=== PATIENT | female | born 1955 | race Caucasian/White ===

== ENCOUNTER → 2017-07-01 15:43 | Outpatient (CLI) | payer BC, MEDICARE, SELFPAY ==
--- NOTE | 2017-07-01 15:46 | CT_ITS ---
STUDY: CT LEFT FOOT REASON FOR EXAM: Female, 61 years old. Nondisplaced fracture, MS, vitamin D deficiency RADIATION DOSAGE (If Supplied By Facility): CTDI vol = (6.53) mGy, DLP = (150.51 mGycm) TECHNIQUE: The patient was scanned in a multi detector CT scanner. High resolution transaxial imaging was performed. Sagittal and coronal images were reconstructed. Individualized dose optimization techniques were used for this CT. COMPARISON: X-ray 06/01/2017 FINDINGS: There is nondisplaced fracture at the base of the second metatarsal. There is sclerosis at the fracture margins (image 22, 21, 20/39 sagittal recon, 46/87 axial). The tarsometatarsal joints are well aligned. There is no osseous destruction. CT/Extremity Lower without Contra IMPRESSION: Nonunited fracture, base second metatarsal Electronically Signed: Gage Ivy MD at 12:01 EST Tel , Service support ,
== END ==
PROVIDERS: Family Provider Family Medicine; PCP Family Medicine; Visit Provider Physician Assistant
DX: S92.345K Nondisplaced fracture of fourth metatarsal bone, left foot, subsequent encounter for fracture with nonunion (principal)
CPT/HCPCS: 73700

== ENCOUNTER → 2017-07-18 12:31 | Outpatient (CLI) | payer BC, MEDICARE, SELFPAY ==
[2017-07-18 13:58] LABS: Absolute Neutrophil Count 3.7 X10^3/uL (2.0-7.7); Basophil# 0.02 X10^3/uL; Basophil% 0.4 % (0-1); Eosinophil# 0.08 X10^3/uL; Eosinophils% 1.6 % (0-5); Hematocrit 41.6 % (37-47); Hemoglobin 13.4 g/dl (12.0-15.0); Lymphocyte % 16.4 % (19-41); Mean Corp Hgb Conc 32.2 g/gl (32-36); Mean Corpuscular Volume 93.1 fL (81-99); Mean Platelet Vol. 11.4 fl (6.2-12.0); Monocyte# 0.28 X10^3/uL; Monocyte% 5.7 % (0-10); Neutrophil # 3.68 X10^3/uL (2.7-7.7); Neutrophil % 75.7 % (47-70); Platelet Count 155 K/mm3 (150-450); RBC Distribution Width CV 13.6 % (11.6-14.6); RBC Distribution Width SD 45.6 fl (35.1-43.9); Red Blood Count 4.47 M/mm3 (4.2-5.4); White Blood Count 4.9 K/mm3 (4.4-11.0)
[2017-07-18 14:03] LABS: POSITIVE COUNT NO; POSITIVE DIFFERENTIAL NO; POSITIVE MORPHOLOGY NO
== END ==
LOC: LAB.FUTURE 12:34
PROVIDERS: Family Provider Family Medicine; PCP Family Medicine; Visit Provider Internal Medicine
DX: G35 Multiple sclerosis (principal); Z79.899 Other long term (current) drug therapy
CPT/HCPCS: 36415; 85025

== ENCOUNTER → 2017-07-26 10:19 | Outpatient (CLI) | payer BC, MEDICARE, SELFPAY ==
[2017-07-26 12:21] LABS: Cholesterol 182 mg/dL (200); High Density Lipoprotein 68 mg/dL; Triglycerides 96 mg/dL; Very Low Density Lipoprotein 19 mg/dL (5-40)
[2017-07-27 09:44] LABS: Vitamin B12 266 pg/mL (211-911)
== END ==
LOC: BFHLAB 10:20
PROVIDERS: Family Provider Family Medicine; PCP Family Medicine; Visit Provider Family Medicine
DX: Z00.01 Encounter for general adult medical examination with abnormal findings (principal); I10 Essential (primary) hypertension; E55.9 Vitamin D deficiency, unspecified; E53.8 Deficiency of other specified B group vitamins
CPT/HCPCS: 36415; 80061; 82306; 82607

== ENCOUNTER → 2017-08-01 15:11 | Outpatient (CLI) | payer BC, MEDICARE, SELFPAY ==
--- NOTE | 2017-08-01 15:13 | HPBI_ITS ---
MAMMOGRAPHY - BILATERAL SCREENING REASON FOR EXAM: Female, 61 years old. Routine annual screening examination. PERTINENT HISTORY: Mother with breast cancer. TECHNIQUE: Digital bilateral breast ortiz (3D mammographic acquisition) in the CC and MLO projections. 2-D mediolateral oblique (MLO) and craniocaudad (CC) views of both breasts were obtained. CAD: Full Field Digital Mammography with Computer Added Detection was performed. COMPARISON: Comparison is made with prior study dated July 17, 2015 and February 22, 2013. FINDINGS: Breast Composition: The breasts are heterogeneously dense, which may obscure small masses. There are no dominant masses or suspicious calcifications. No other significant abnormalities are identified. There has been no significant change since the prior study. HPBI/SCREENING MAMM (CAD), BILAT IMPRESSION: Stable bilateral screening mammogram. Yearly follow-up mammogram recommended. (A) ASSESSMENT CATEGORY: BIRADS Category 1: Negative. A letter regarding these results will be sent to the patient by the facility within 30 days. Approximately 10% of breast cancers are not detected by mammography. A normal mammogram should not delay biopsy of a clinically suspicious abnormality. [id number] Electronically Signed: Feroz Nowak MD at 16:02 EDT Tel [phone], Service support ,
== END ==
PROVIDERS: Family Provider Family Medicine; PCP Family Medicine; Visit Provider Family Medicine
DX: Z12.31 Encounter for screening mammogram for malignant neoplasm of breast (principal)
CPT/HCPCS: 77063; 77067

== ENCOUNTER → 2017-08-02 15:53 | Outpatient (CLI) | payer BC, MEDICARE, SELFPAY ==
--- NOTE | 2017-08-02 15:54 | HPBD_ITS ---
STUDY: DUAL ENERGY X-RAY ABSORPTIOMETRY / DXA REASON FOR EXAM: Female, 61 years old. The patient is postmenopausal. Loss of height. Chronic steroid use. TECHNIQUE: Bone Mineral Density (BMD) measurements of lumbar spine and bilateral hips were obtained. COMPARISON: Comparison is made with prior study dated August 11, 2005. FINDINGS: Lumbar Spine (L1-L4): g/cm2 (1.195) / T-score (0.1) / Z-score (1.4) Findings are suggestive of normal bone density with a low fracture risk. Left Femur Total: g/cm2 (0.799) / T-score (-1.7) / Z-score (-0.7) Left Femoral Neck: g/cm2 (0.804) / T-score (-1.7) / Z-score (-0.4) Right Femur Total: g/cm2 (0.746) / T-score (-2.1) / Z-score (-1.1) Right Femoral Neck: g/cm2 (0.794) / T-score (-1.8) / Z-score (-0.5) The T-Scores on the most recent prior examination were: Lumbar Spine (L1-L4): There has been improvement of bone density since the previous examination. Left Femur Total: which represents a worsening of 7.1%. Right Femur Total: which represents a worsening of 8.4%. HPBD/Dexa Bone Density Study (HP) IMPRESSION: The patient is considered osteopenic as outlined below according to World Marshall Organization (WHO) criteria with a moderate fracture risk. There has been worsening of bone density since the previous examination. Reference Information: The T-score is the number of standard deviations above or below the standard which is normal for young adults at their peak bone mineral density. The World Health Organization (WHO) interprets the T-scores as follows: Above -1 Normal bone density Between -1 and -2.5 Osteopenia Equal to / or below -2.5 Osteoporosis As a practical clinical guideline, osteopenia may be graded as follows: Mild -1 through -1.5 Moderate -1.6 through -2.0 Severe -2.1 through -2.4 The Z-score is the number of standard deviations above or below age-matched controls. A Z-score of less than -1.5 would be considered abnormal. References: 1. NIH Osteoporosis and Related Bone Diseases http://www.osteo.org 2. International Society for Clinical Densitometry http://www.iscd.org 3. National Osteoporosis Foundation http://www.nof.org Electronically Signed: Feroz Nowak MD at 8:12 EDT Tel [phone], Service support ,
== END ==
PROVIDERS: Family Provider Family Medicine; PCP Family Medicine; Visit Provider Family Medicine
DX: M81.0 Age-related osteoporosis without current pathological fracture (principal)
CPT/HCPCS: 77080

== ENCOUNTER → 2017-10-04 11:25 | Outpatient (CLI) | payer BC, MEDICARE, SELFPAY ==
[2017-10-04 14:04] LABS: Absolute Lymphocyte Count 0.19 X10^3/ul (0.83-4.51); Absolute Neutrophil Count 3.6 X10^3/uL (2.0-7.7); Basophil# 0.02 X10^3/uL; Basophil% 0.4 % (0-1); Eosinophil# 0.12 X10^3/uL; Eosinophils% 2.7 % (0-5); Hematocrit 40.8 % (37-47); Hemoglobin 13.6 g/dl (12.0-15.0); Lymphocyte # 0.19 X10^3/ul (4.0); Lymphocyte % 4.2 % (19-41); Mean Corp Hgb Conc 33.3 g/gl (32-36); Mean Corpuscular Hgb 30.6 pg (27.0-32.0); Mean Corpuscular Volume 91.9 fL (81-99); Mean Platelet Vol. 11.4 fl (6.2-12.0); Monocyte# 0.56 X10^3/uL; Monocyte% 12.5 % (0-10); Neutrophil # 3.58 X10^3/uL (2.7-7.7); Platelet Count 180 K/mm3 (150-450); RBC Distribution Width CV 13.4 % (11.6-14.6); RBC Distribution Width SD 44.3 fl (35.1-43.9); Red Blood Count 4.44 M/mm3 (4.2-5.4); White Blood Count 4.5 K/mm3 (4.4-11.0)
[2017-10-04 14:05] LABS: Differential Indicated SCAN CRITERIA MET; POSITIVE COUNT NO; POSITIVE DIFFERENTIAL YES; POSITIVE MORPHOLOGY NO
[2017-10-04 14:11] LABS: AST(SGOT) 20 U/L (15-37); Alanine Aminotransfer ALT/SGPT 29 U/L (13-56); Albumin, Serum 3.7 g/dL (3.2-5.0); Alkaline Phosphatase 127 U/L (45-117); Anion Gap 6 (5-15); BUN 14 mg/dL (7-18); BUN/Creat Ratio 14.6 RATIO (10-20); Calcium,Total 8.7 mg/dL (8.5-10.1); Chloride 108 mmol/L (98-107); Creatinine, Serum 0.96 mg/dL (0.55-1.02); EST Glomerular Filtration Rate 63 mL/min (>60); Est Glom Filt Rate - Afr Amer 76 mL/min (>60); Globulin 3.8 g/dL (2.2-4.2); Glucose 89 mg/dL (74-106); Potassium 4.2 mmol/L (3.5-5.1); Protein, Total 7.5 g/dL (6.4-8.2); Sodium Level 139 mmol/L (136-145)
== END ==
PROVIDERS: Family Provider Family Medicine; PCP Family Medicine; Visit Provider Internal Medicine
DX: G35 Multiple sclerosis (principal); Z79.899 Other long term (current) drug therapy
CPT/HCPCS: 36415; 80053; 85025

== ENCOUNTER → 2017-10-04 15:38 | Outpatient (CLI) | payer BC, MEDICARE, SELFPAY | PROVIDERS: Family Provider Family Medicine; PCP Family Medicine; Visit Provider Family Medicine | DX: E86.0 Dehydration (principal); R30.0 Dysuria | CPT/HCPCS: 87086; 87088 ==

== ENCOUNTER → 2017-11-23 16:05 | Outpatient (CLI) | payer BC, MEDICARE, SELFPAY ==
[2017-11-23 17:47] LABS: AST(SGOT) 26 U/L (15-37); Alanine Aminotransfer ALT/SGPT 36 U/L (13-56); Albumin, Serum 3.8 g/dL (3.2-5.0); Alkaline Phosphatase 131 U/L (45-117); Anion Gap 11 (5-15); BUN 15 mg/dL (7-18); BUN/Creat Ratio 16.3 RATIO (10-20); Calcium,Total 8.8 mg/dL (8.5-10.1); Chloride 106 mmol/L (98-107); Creatinine, Serum 0.92 mg/dL (0.55-1.02); EST Glomerular Filtration Rate 66 mL/min (>60); Est Glom Filt Rate - Afr Amer 80 mL/min (>60); Glucose 105 mg/dL (74-106); Potassium 3.8 mmol/L (3.5-5.1); Protein, Total 7.8 g/dL (6.4-8.2); Sodium Level 144 mmol/L (136-145)
[2017-11-24 08:39] LABS: Absolute Lymphocyte Count 0.68 X10^3/ul (0.83-4.51); Absolute Neutrophil Count 3.5 X10^3/uL (2.0-7.7); Basophil# 0.02 X10^3/uL; Basophil% 0.4 % (0-1); Eosinophil# 0.09 X10^3/uL; Hematocrit 40.9 % (37-47); Hemoglobin 13.4 g/dl (12.0-15.0); Lymphocyte # 0.68 X10^3/ul (4.0); Mean Corp Hgb Conc 32.8 g/gl (32-36); Mean Corpuscular Hgb 30.5 pg (27.0-32.0); Mean Platelet Vol. 11.8 fl (6.2-12.0); Monocyte# 0.24 X10^3/uL; Monocyte% 5.3 % (0-10); Neutrophil # 3.48 X10^3/uL (2.7-7.7); Neutrophil % 77.1 % (47-70); POSITIVE COUNT NO; POSITIVE DIFFERENTIAL NO; POSITIVE MORPHOLOGY NO; Platelet Count 178 K/mm3 (150-450); RBC Distribution Width CV 13.8 % (11.6-14.6); RBC Distribution Width SD 47.2 fl (35.1-43.9); White Blood Count 4.5 K/mm3 (4.4-11.0)
== END ==
PROVIDERS: Family Provider Family Medicine; PCP Family Medicine; Visit Provider Internal Medicine
DX: Z79.899 Other long term (current) drug therapy (principal)
CPT/HCPCS: 36415; 80053; 85025

== ENCOUNTER → 2017-12-06 13:52 | Outpatient (CLI) | payer BC, MEDICARE, SELFPAY ==
--- NOTE | 2017-12-06 13:56 | RAD_ITS ---
STUDY: X-RAY - CERVICAL SPINE REASON FOR EXAM: Female, 62 years old. Pain TECHNIQUE: 7 view(s) of the cervical spine were obtained. COMPARISON: None FINDINGS: There is no evidence of fracture or dislocation in the cervical spine. The dens is intact. The vertebral body heights and disc spaces are well-maintained. There are no significant degenerative changes. The prevertebral soft tissues are unremarkable. There is no radiodense foreign body. RAD/Cerv Spine 4 or 5 Views IMPRESSION: No fracture or dislocation in the cervical spine. Electronically Signed: Gage Akhtar, at 19:43 EDT Tel , Service support ,
--- NOTE | 2017-12-06 13:56 | RAD_ITS ---
STUDY: X-RAY - RIGHT CLAVICLE REASON FOR EXAM: Female, 62 years old. Pain and swelling TECHNIQUE: 2 view(s) of the clavicle. COMPARISON: None. FINDINGS: There is no evidence of fracture or dislocation. There are no significant degenerative changes. There are no radiodense foreign bodies. RAD/Clavicle IMPRESSION: Negative radiographs of the right clavicle. Electronically Signed: Gage Akhtar, at 19:40 EDT Tel , Service support ,
--- NOTE | 2017-12-06 14:00 | RAD_ITS ---
STUDY: X-RAY - RIGHT SHOULDER REASON FOR EXAM: Female, 62 years old. Pain TECHNIQUE: 4 view(s) of the shoulder. COMPARISON: None. FINDINGS: There is no evidence of fracture or dislocation. There are no significant degenerative changes. There are no radiodense foreign bodies. RAD/Shoulder min 2 Views IMPRESSION: No fracture or dislocation. Electronically Signed: Gage Akhtar, at 19:42 EDT Tel , Service support ,
== END ==
PROVIDERS: Family Provider Family Medicine; PCP Family Medicine; Visit Provider Family Medicine
DX: M25.511 Pain in right shoulder (principal); M89.8X1 Other specified disorders of bone, shoulder; M43.02 Spondylolysis, cervical region
CPT/HCPCS: 72050; 73000; 73030

== ENCOUNTER → 2018-02-14 11:27 | Outpatient (CLI) | payer BC, MEDICARE, SELFPAY ==
[2018-02-14 14:08] LABS: Absolute Lymphocyte Count 0.33 X10^3/ul (0.83-4.51); Basophil# 0.04 X10^3/uL; Basophil% 0.8 % (0-1); Differential Indicated SCAN CRITERIA MET; Eosinophil# 0.13 X10^3/uL; Eosinophils% 2.6 % (0-5); Hematocrit 38.8 % (37-47); Hemoglobin 12.5 g/dl (12.0-15.0); Lymphocyte # 0.33 X10^3/ul (4.0); Lymphocyte % 6.5 % (19-41); Mean Corp Hgb Conc 32.2 g/gl (32-36); Mean Corpuscular Hgb 30.2 pg (27.0-32.0); Mean Corpuscular Volume 93.7 fL (81-99); Mean Platelet Vol. 11.1 fl (6.2-12.0); Monocyte% 11.8 % (0-10); Neutrophil # 3.96 X10^3/uL (2.7-7.7); Neutrophil % 78.1 % (47-70); POSITIVE COUNT NO; POSITIVE DIFFERENTIAL YES; POSITIVE MORPHOLOGY NO; Platelet Count 157 K/mm3 (150-450); RBC Distribution Width CV 13.7 % (11.6-14.6); RBC Distribution Width SD 46.4 fl (35.1-43.9); Red Blood Count 4.14 M/mm3 (4.2-5.4); White Blood Count 5.1 K/mm3 (4.4-11.0)
== END ==
PROVIDERS: Family Provider Family Medicine; PCP Family Medicine; Referring Provider Internal Medicine; Visit Provider Internal Medicine
DX: G35 Multiple sclerosis (principal)
CPT/HCPCS: 36415; 85025

== ENCOUNTER → 2018-03-29 16:23 | Outpatient (CLI) | payer BC, MEDICARE, SELFPAY ==
[2018-03-29 18:11] LABS: ALB/GLOB Ratio 0.9 RATIO (0.9-2.4); AST(SGOT) 23 U/L (15-37); Alanine Aminotransfer ALT/SGPT 34 U/L (13-56); Albumin, Serum 3.5 g/dL (3.2-5.0); Alkaline Phosphatase 138 U/L (45-117); Anion Gap 9 (5-15); BUN 17 mg/dL (7-18); BUN/Creat Ratio 15.5 RATIO (10-20); Calcium,Total 8.3 mg/dL (8.5-10.1); Chloride 109 mmol/L (98-107); EST Glomerular Filtration Rate 54 mL/min (>60); Est Glom Filt Rate - Afr Amer 65 mL/min (>60); Globulin 3.8 g/dL (2.2-4.2); Glucose 83 mg/dL (74-106); Potassium 3.8 mmol/L (3.5-5.1); Protein, Total 7.3 g/dL (6.4-8.2); Sodium Level 145 mmol/L (136-145); Thyroid Stim Hormone (TSH) 1.74 uIU/mL (0.358-3.74)
[2018-03-29 18:35] LABS: Absolute Lymphocyte Count 0.56 X10^3/ul (0.83-4.51); Absolute Neutrophil Count 4.5 X10^3/uL (2.0-7.7); Basophil# 0.03 X10^3/uL; Basophil% 0.5 % (0-1); Eosinophil# 0.16 X10^3/uL; Eosinophils% 2.7 % (0-5); Hematocrit 39.7 % (37-47); Hemoglobin 12.7 g/dl (12.0-15.0); Lymphocyte # 0.56 X10^3/ul (4.0); Lymphocyte % 9.6 % (19-41); Mean Corpuscular Hgb 30.9 pg (27.0-32.0); Mean Corpuscular Volume 96.6 fL (81-99); Mean Platelet Vol. 11.2 fl (6.2-12.0); Monocyte# 0.59 X10^3/uL; Monocyte% 10.1 % (0-10); Neutrophil # 4.48 X10^3/uL (2.7-7.7); Neutrophil % 76.9 % (47-70); Platelet Count 159 K/mm3 (150-450); RBC Distribution Width CV 13.7 % (11.6-14.6); RBC Distribution Width SD 48.3 fl (35.1-43.9); Red Blood Count 4.11 M/mm3 (4.2-5.4); White Blood Count 5.8 K/mm3 (4.4-11.0)
[2018-03-29 18:36] LABS: Differential Indicated SCAN CRITERIA MET; POSITIVE COUNT NO; POSITIVE DIFFERENTIAL YES; POSITIVE MORPHOLOGY NO
== END ==
PROVIDERS: Family Provider Family Medicine; PCP Family Medicine; Referring Provider Internal Medicine; Visit Provider Internal Medicine
DX: Z79.899 Other long term (current) drug therapy (principal)
CPT/HCPCS: 36415; 80053; 84443; 85025

== ENCOUNTER → 2018-04-11 12:28 | Outpatient (CLI) | payer BC, MEDICARE, SELFPAY ==
--- NOTE | 2018-04-11 12:31 | MRI_ITS ---
STUDY: MRI BRAIN WITH AND WITHOUT CONTRAST REASON FOR EXAM: Female, 62 years old. Multiple sclerosis with new numbness and tingling TECHNIQUE: Standardized multiplanar fat and water weighted pulse sequences were obtained. 10 ml of Gadavist contrast material was administered intravenously for the contrast portion of the examination. COMPARISON: CT of the brain on April 05, 2011. FINDINGS: Normal size of the ventricles and extra-axial spaces for the patient's age. There are multiple small white matter lesions within the centrum semiovale and luna radiata without mass effect or restricted diffusion which may be consistent with clinical history of multiple sclerosis however small vessel ischemic changes in patient of this age may create similar appearance Normal bilateral basal ganglia. Normal thalami. There is no extra-axial fluid accumulation. Normal flow voids within the major intracranial circulation suggesting patency by spin echo criteria. Normal venous enhancement. There is no enhancing intra-axial or extra-axial abnormality. Normal sella turcica, pituitary gland, infundibular stalk, optic chiasm and hypothalamus. Normal tectal plate and pineal gland. Normal midbrain, kate and medulla. Normal cerebellum. Normal basal cisterns. Normal bilateral temporal bones. Normal bilateral internal auditory canals. No demonstrated orbital abnormality, within the constraints of a routine brain study. Large mucous retention cyst within the maxillary sinuses bilaterally and minor mucosal thickening within the ethmoid air cells. Normal calvarium and skull base. Normal visualized soft tissue structures. Normal visualized upper cervical spine. MRI/Brain W/WO Contrast IMPRESSION: Multiple small nonspecific bilateral punctate white matter lesions within the centrum semiovale luna radiata which in a patient of this age are most likely due to small vessel ischemic changes but also may be consistent with clinical history of multiple sclerosis. No evidence for acute infarct at this time. There is no enhancing lesion to suggest acute demyelinating plaque.. Electronically Signed: Gildardo Luna MD at 19:28 EST , Service support ,
--- NOTE | 2018-04-11 12:31 | MRI_ITS ---
STUDY: MRI CERVICAL SPINE WITH AND WITHOUT CONTRAST REASON FOR EXAM: Female, 62 years old. Multiple sclerosis with new numbness and tingling TECHNIQUE: Standardized fat and water weighted pulse sequences were obtained in the sagittal and axial following I.V. administration of 10 ml of Gadavist contrast material. COMPARISON: March 13, 2015 FINDINGS: Normal foramen magnum and brainstem-cervical cord junction. Normal craniovertebral junction. Normal anterior atlantoaxial articulation. Normal odontoid process. Normal cervical lordosis. Normal vertebral bodies and posterior osseous elements. C2-3: Normal endplates. Normal disc height, signal and morphology. Normal central canal and intervertebral neural foramina. C3-4: Normal endplates. Normal disc height, signal and mild bulging of the disc.. Normal central canal and intervertebral neural foramina. C4-5: Normal endplates. Normal disc height, signal and morphology. Normal central canal and intervertebral neural foramina. C5-6: Normal endplates. Normal disc height, signal and morphology. Normal central canal and intervertebral neural foramina. C6-7: Normal endplates. Normal disc height, signal and morphology. Normal central canal and intervertebral neural foramina. C7-T1: Normal endplates. Normal disc height, signal and morphology. Normal central canal and intervertebral neural foramina. Normal cervical cord. Normal visualized soft tissue structures. MRI/Spine Cervical W/WO Contrast IMPRESSION: Mild bulging of the disc at C3-4 without evidence for spinal stenosis or cord compression. No focal lesions within the spinal cord or abnormal enhancement following contrast demonstration Electronically Signed: Gildardo Luna MD at 23:16 EST , Service support ,
--- OUTSIDE RECORDS SUMMARY | 2018-05-24 04:52 | XMS RPT_ITS ---
:1955 Author Organization OHIP Support Name Relationship Address Phone D Unavailable Unavailable Unavailable ROGERS, YOANDY Unavailable [address] + [place] [address] D Unavailable Unavailable Unavailable ROGERS, YOANDY Unavailable [address] + [place] [address] D Unavailable Unavailable Unavailable ROGERS, YOANDY Unavailable [address] + [place] [address] D Unavailable Unavailable Unavailable ROGERS, YOANDY Unavailable [address] + [place] [address] D Unavailable Unavailable Unavailable ROGERS, YOANDY Unavailable [address] + [place] [address] D Unavailable Unavailable Unavailable ROGERS, YOANDY Unavailable [address] + [place] [address] D Unavailable Unavailable Unavailable ROGERS, OYANDY Unavailable [address] + [place] [address] D Unavailable Unavailable Unavailable ROGERS, YOANDY Unavailable [address] + [place] [address] D Unavailable Unavailable Unavailable ROGERS, YOANDY Unavailable [address] + [place] [address] D Unavailable Unavailable Unavailable ROGERS, YOANDY Unavailable [address] + [place] [address] D Unavailable Unavailable Unavailable ROGERS, YOANDY Unavailable [address] + [place] [address] D Unavailable Unavailable Unavailable ROGERS, YOANDY Unavailable [address] + [place] [address] Care Team Providers Name Role Phone JAN LEWIS Admitting Unavailable JAN LEWIS Attending Unavailable MYRON, DR GODINEZ Consulting Unavailable Angel Blackman Attending Unavailable Walt La Primary Care Unavailable Angel Blackman Referring Unavailable Carrabine, Gurwinder J Attending Unavailable Bessie, Walt Primary Care Unavailable Carrabine, Gurwinder J Referring Unavailable Bessie, Walt Attending Unavailable Bessie, Walt Primary Care Unavailable Bessie, Walt Attending Unavailable Bessie, Walt Referring Unavailable Bessie, Walt Primary Care Unavailable Bessie, Walt Attending Unavailable Bessie, Walt Primary Care Unavailable Carrabine, Gurwinder J Attending Unavailable Carr[place], Gurwinder J Referring Unavailable Bessie, Walt Primary Care Unavailable Bessie, Walt Attending Unavailable Bessie, Walt Primary Care Unavailable Carrabine, Gurwinder J Attending Unavailable Carrabine, Gurwinder J Referring Unavailable Bessie, Walt Primary Care Unavailable Bessie, Walt Attending Unavailable Bessie, Walt Referring Unavailable Bessie, Walt Primary Care Unavailable Carrabine, Gurwinder J Attending Unavailable Carrabine, Gurwinder J Referring Unavailable Bessie, Walt Primary Care Unavailable Carrabine, Gurwinder J Attending Unavailable Carrabine, Gurwinder J Referring Unavailable Bessie, Walt Primary Care Unavailable Carrabine, Gurwinder J Attending Unavailable Carrabine, Gurwinder J Referring Unavailable Bessie, Walt Primary Care Unavailable PROBLEMS PROBLEMS DATE TYPE CONDITION / CODE ATTENDING STATUS SOURCE 03/29/2018 Unknown Z79.899 - Other [place] [place] [facility] Gurwinder J Community (current) drug Hospital therapy / Repository Z79.899(ICD-10) 02/14/2018 Unknown G35 - Multiple Carrabine, Active [place] sclerosis / Gurwinder J Community G35(ICD-10) Hospital Repository 12/06/2017 Unknown M25.511 - Pain in [facility] La [facility] [place] right shoulder / Community M25.511(ICD-10) Hospital Repository 12/06/2017 Unknown M89.8X1 - Other [facility] La [facility] [place] specified Community disorders of bone, Hospital shoulder / Repository M89.8X1(ICD-10) 12/06/2017 Unknown 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, Community cervical region / Hospital M43.02(ICD-10) Repository 10/05/2017 Unknown R30.0 - Dysuria / Walt La Active [place] R30.0(ICD-10) Community Hospital Repository 10/05/2017 Unknown E86.0 - [facility] [place] Dehydration / Community E86.0(ICD-10) Hospital Repository 08/09/2017 Unknown Z12.31 - Encounter Walt La Active [place] for screening [facility] mammogram for Hospital malignant neoplasm Repository of breast / Z12.31(ICD-10) 07/26/2017 Unknown E55.9 - Vitamin D Walt La Active [place] deficiency, Community unspecified / Hospital E55.9(ICD-10) Repository 07/26/2017 Unknown E53.8 - Deficiency Walt La [facility] [place] of other specified Community B group vitamins / Hospital E53.8(ICD-10) Repository 07/26/2017 Unknown Z00.01 - Encounter Walt La Active [place] for general adult [facility] examination with Repository abnormal findings / Z00.01(ICD-10) 07/26/2017 Unknown I10 - Essential [facility] La [facility] [place] (primary) [facility] hypertension / Hospital I10(ICD-10) Repository PROCEDURES PROCEDURES No Procedure Records FoundRESULTS RESULTS BRAIN W/WO CONTRAST Observed: 04/11/2018 Status: F Source: [place] 12:32 PM [facility] [place] REPOSITORY [facility] Imaging Services [address] [place] [address] Brain W/WO Contrast MR#: [id number] Acct: [id number] Name: MEGGAN VILLALOBOS Rep #: [id number] : 1955 F 62 From: Gildardo Luna MD PCP: Walt La DO Status: REG CLI Study: Brain W/WO Contrast Date of Exam: 04/11/18 Exam# [id number] Ordering Dr: Gurwinder Chirinos STUDY: MRI BRAIN WITH AND WITHOUT CONTRAST REASON FOR EXAM: Female, 62 years old. Multiple sclerosis with new numbness and tingling TECHNIQUE: Standardized multiplanar fat and water weighted pulse sequences were obtained. 10 ml of Gadavist contrast material was administered intravenously for the contrast portion of the examination. COMPARISON: CT of the brain on April 05, 2011. FINDINGS: Normal size of the ventricles and extra-axial spaces for the patient's age. There are multiple small white matter lesions within the centrum semiovale and luna radiata without mass effect or restricted diffusion which may be consistent with clinical history of multiple sclerosis however small vessel ischemic changes in patient of this age may create similar appearance Normal bilateral basal ganglia. Normal thalami. There is no extra-axial fluid accumulation. Normal flow voids within the major intracranial circulation suggesting patency by spin echo criteria. Normal venous enhancement. There is no enhancing intra-axial or extra-axial abnormality. Normal sella turcica, pituitary gland, infundibular stalk, optic chiasm and hypothalamus. Normal tectal plate and pineal gland. Normal midbrain, kate and medulla. Normal cerebellum. Normal basal cisterns. Normal bilateral temporal bones. Normal bilateral internal auditory canals. No demonstrated orbital abnormality, within the constraints of a routine brain study. Large mucous retention cyst within the maxillary sinuses bilaterally and minor mucosal thickening within the ethmoid air cells. Normal calvarium and skull base. Normal visualized soft tissue structures. Normal visualized upper cervical spine. MRI/Brain W/WO Contrast IMPRESSION: Multiple small nonspecific bilateral punctate white matter lesions within the centrum semiovale luna radiata which in a patient of this age are most likely due to small vessel ischemic changes but also may be consistent with clinical history of multiple sclerosis. No evidence for acute infarct at this time. There is no enhancing lesion to suggest acute demyelinating plaque.. Electronically Signed: Gildardo Luna MD at 19:28 EST , Service support , CC: Gurwinder Chirinos; Walt La DO Landing Man: Signed SPINE CERVICAL W/WO Observed: 04/11/2018 Status: F Source: [place] CONTRAST 12:32 PM [facility] REPOSITORY [facility] Imaging Services [address] [place] [address] Spine Cervical W/WO Contrast MR#: [id number] Acct: [id number] Name: MEGGAN VILLALOBOS Rep #: [id number] : 1955 F 62 From: Gildardo Luna MD PCP: Walt La DO Status: REG CLI Study: Spine Cervical W/WO Contrast Date of Exam: 04/11/18 Exam# [id number] Ordering Dr: Gurwinder Chirinos STUDY: MRI CERVICAL SPINE WITH AND WITHOUT CONTRAST REASON FOR EXAM: Female, 62 years old. Multiple sclerosis with new numbness and tingling TECHNIQUE: Standardized fat and water weighted pulse sequences were obtained in the sagittal and axial following I.V. administration of 10 ml of Gadavist contrast material. COMPARISON: March 13, 2015 FINDINGS: Normal foramen magnum and brainstem-cervical cord junction. Normal craniovertebral junction. Normal anterior atlantoaxial articulation. Normal odontoid process. Normal cervical lordosis. Normal vertebral bodies and posterior osseous elements. C2-3: Normal endplates. Normal disc height, signal and morphology. Normal central canal and intervertebral neural foramina. C3-4: Normal endplates. Normal disc height, signal and mild bulging of the disc.. Normal central canal and intervertebral neural foramina. C4-5: Normal endplates. Normal disc height, signal and morphology. Normal central canal and intervertebral neural foramina. C5-6: Normal endplates. Normal disc height, signal and morphology. Normal central canal and intervertebral neural foramina. C6-7: Normal endplates. Normal disc height, signal and morphology. Normal central canal and intervertebral neural foramina. C7-T1: Normal endplates. Normal disc height, signal and morphology. Normal central canal and intervertebral neural foramina. Normal cervical cord. Normal visualized soft tissue structures. MRI/Spine Cervical W/WO Contrast IMPRESSION: Mild bulging of the disc at C3-4 without evidence for spinal stenosis or cord compression. No focal lesions within the spinal cord or abnormal enhancement following contrast demonstration Electronically Signed: Gildardo Luna MD at 23:16 EST , Service support , CC: Gurwinder Chirinos; Walt La DO Landing Man: Signed COMPREHENSIVE METABOLIC Collected: 03/29/2018 Status: F Source: [place] PROFIL 4:27 PM [facility] REPOSITORY TYPE CODE TESTS RESULT OUT OF RANGE REFERENCE UNITS LAB L501.0100 74-106 mg/dL Normal GLU 83 Result Comment: Please note revised GLUCOSE reference range effective 2017. LAB L501.1000 7-18 mg/dL Normal BUN 17 LAB L501.1100 0.55-1.02 mg/dL High CREAT,SERUM 1.10 Result Comment: The validity of the calculated GFR AND GFRAA in patients over 70 years has not been determined. Clinical correlation is essential. LAB L501.1110 >60 mL/min Low EST GFR 54 Result Comment: Non- GFR Calc LAB L501.1115 >60 mL/min Normal EST GFR - AA 65 Result Comment: GFR Calc LAB L501.1300 10-20 RATIO Normal BUN/CRE 15.5 LAB L501.1500 6.4-8.2 g/dL T Normal PROT 7.3 LAB L501.1800 3.2-5.0 g/dL Normal ALB 3.5 LAB L501.1950 2.2-4.2 g/dL Normal GLOB 3.8 LAB L501.2000 0.9-2.4 RATIO Normal A/G 0.9 LAB L501.2200 8.5-10.1 mg/dL Low CA 8.3 LAB L501.4100 15-37 U/L Normal AST 23 LAB L501.4305 45-117 U/L High ALK P 138 LAB L501.4405 13-56 U/L Normal ALT 34 LAB L501.4600 0.20-1.00 mg/dL T Normal BILI 0.20 LAB L501.5300 136-145 mmol/L NA Normal 145 LAB L501.5600 3.5-5.1 mmol/L K Normal 3.8 LAB L501.5900 98-107 mmol/L High CL 109 LAB L501.6100 21.0-32.0 mmol/L Normal CO2 27.0 LAB L501.6200 5-15 Normal GAP 9 Performed By: #### L500.4050, L501.9520 #### [facility] [address] [place], [place], [address] THYROID STIM HORMONE Collected: 03/29/2018 Status: F Source: [place] (TSH) 4:27 PM [facility] REPOSITORY TYPE CODE TESTS RESULT OUT OF RANGE REFERENCE UNITS LAB L501.9520 0.358-3.74 uIU/mL Normal TSH 1.74 Performed By: #### L500.4050, L501.9520 #### [facility] [address] [place], [address] CBC W/DIFF, AUTOMATED Collected: 03/29/2018 Status: F Source: [place] 4:27 PM [facility] REPOSITORY TYPE CODE TESTS RESULT OUT OF RANGE REFERENCE UNITS LAB L100.1000 4.4-11.0 K/mm3 Normal WBC 5.8 LAB L100.1200 4.2-5.4 M/mm3 Low RBC 4.11 LAB L100.1300 12.0-15.0 g/dl Normal HGB 12.7 LAB L100.1400 37-47 % Normal HCT 39.7 LAB L100.1500 81-99 fL Normal MCV 96.6 LAB L100.1600 27.0-32.0 pg Normal MCH 30.9 LAB L100.1700 32-36 g/gl Normal MCHC 32.0 LAB L100.1810 11.6-14.6 % Normal RDW CV 13.7 LAB L100.1820 35.1-43.9 fl High RDW SD 48.3 LAB L100.1900 150-450 K/mm3 Normal PLT 159 LAB L100.2000 6.2-12.0 fl Normal MPV 11.2 LAB L100.2100 47-70 % High NEUT% 76.9 LAB L100.2200 19-41 % Low LY% 9.6 LAB L100.2300 0-10 % High MONO% 10.1 LAB L100.2400 0-5 % Normal EO% 2.7 LAB L100.2500 0-1 % Normal BASO% 0.5 LAB L100.2550 0.0-0.9 % Normal IM GRAN % 0.200 Result Comment: IG% - Immature Granulocytes (promyelocytes, myelocytes and metamyelocytes) > 1% indicates that a LEFT SHIFT is Present. LAB L100.2620 2.0-7.7 X10 3/uL Normal Absolute Neut 4.5 LAB L100.2720 0.83-4.51 X10 3/ul Low Absolute Lymph 0.56 LAB L100.4500 SMEAR Normal COMMENT Result Comment: LYMPHOPENIA NOTED Performed By: #### L100.0100 #### [facility] [place], [address] CBC W/DIFF, AUTOMATED Collected: 02/14/2018 Status: F Source: [place] 11:41 AM [facility] REPOSITORY Order Comment: FAX RESULTS TO VARUN SHAH @[id number] TYPE CODE TESTS RESULT OUT OF RANGE REFERENCE UNITS LAB L100.1000 4.4-11.0 K/mm3 Normal WBC 5.1 LAB L100.1200 4.2-5.4 M/mm3 Low RBC 4.14 LAB L100.1300 12.0-15.0 g/dl Normal HGB 12.5 LAB L100.1400 37-47 % Normal HCT 38.8 LAB L100.1500 81-99 fL Normal MCV 93.7 LAB L100.1600 27.0-32.0 pg Normal MCH 30.2 LAB L100.1700 32-36 g/gl Normal MCHC 32.2 LAB L100.1810 11.6-14.6 % Normal RDW CV 13.7 LAB L100.1820 35.1-43.9 fl High RDW SD 46.4 LAB L100.1900 150-450 K/mm3 Normal PLT 157 LAB L100.2000 6.2-12.0 fl Normal MPV 11.1 LAB L100.2100 47-70 % High NEUT% 78.1 LAB L100.2200 19-41 % Low LY% 6.5 LAB L100.2300 0-10 % High MONO% 11.8 LAB L100.2400 0-5 % Normal EO% 2.6 LAB L100.2500 0-1 % Normal BASO% 0.8 LAB L100.2550 0.0-0.9 % Normal IM GRAN % 0.200 Result Comment: IG% - Immature Granulocytes (promyelocytes, myelocytes and metamyelocytes) > 1% indicates that a LEFT SHIFT is Present. LAB L100.2620 2.0-7.7 X10 3/uL Normal Absolute Neut 4.0 LAB L100.2720 0.83-4.51 X10 3/ul Low Absolute Lymph 0.33 Performed By: #### L100.0100 #### [facility] [address] [place], [address] CLAVICLE Observed: 12/06/2017 Status: F Source: [place] 1:57 PM [facility] REPOSITORY [facility] Imaging Services [address] [place] [address] Clavicle MR#: [id number] Acct: [id number] Name: SOMMERBLUEJOSEPH ROGERSMEGGAN Rep #: [id number] : 1955 F 62 From: Gage Akhtar MD PCP: Walt La DO Status: REG CLI Study: Clavicle Date of Exam: 12/06/17 Exam# [id number] Ordering Dr: Walt La DO STUDY: X-RAY - RIGHT CLAVICLE REASON FOR EXAM: Female, 62 years old. Pain and swelling TECHNIQUE: 2 view(s) of the clavicle. COMPARISON: None. FINDINGS: There is no evidence of fracture or dislocation. There are no significant degenerative changes. There are no radiodense foreign bodies. RAD/Clavicle IMPRESSION: Negative radiographs of the right clavicle. Electronically Signed: Gage Akhtar, at 19:40 EDT Tel , Service support , CC: Walt La DO Landing Man: Signed SHOULDER MIN 2 VIEWS Observed: 12/06/2017 Status: F Source: [place] 1:57 PM [facility] REPOSITORY [facility] Imaging Services [address] [place] [address] Shoulder min 2 Views MR#: [id number] Acct: [id number] Name: MEGGAN VILLALOBOS Rep #: [id number] : 1955 F 62 From: Gage Akhtar MD PCP: Walt La DO Status: REG CLI Study: Shoulder min 2 Views Date of Exam: 12/06/17 Exam# [id number] Ordering Dr: Walt La DO STUDY: X-RAY - RIGHT SHOULDER REASON FOR EXAM: Female, 62 years old. Pain TECHNIQUE: 4 view(s) of the shoulder. COMPARISON: None. FINDINGS: There is no evidence of fracture or dislocation. There are no significant degenerative changes. There are no radiodense foreign bodies. RAD/Shoulder min 2 Views IMPRESSION: No fracture or dislocation. Electronically Signed: Gage Akhtar, at 19:42 EDT Tel , Service support , CC: Watl La DO Landing Man: Signed CERV SPINE 4 OR 5 Observed: 12/06/2017 Status: F Source: [place] VIEWS 1:57 PM [facility] REPOSITORY [facility] Imaging Services [address] [place] [address] Cerv Spine 4 or 5 Views MR#: [id number] Acct: [id number] Name: DIPAK VILLALOBOSNDA Zion Rep #: [id number] : 1955 F 62 From: Gage Akhtar MD PCP: Walt La DO Status: REG CLI Study: Cerv Spine 4 or 5 Views Date of Exam: 12/06/17 Exam# [id number] Ordering Dr: Walt La DO STUDY: X-RAY - CERVICAL SPINE REASON FOR EXAM: Female, 62 years old. Pain TECHNIQUE: 7 view(s) of the cervical spine were obtained. COMPARISON: None FINDINGS: There is no evidence of fracture or dislocation in the cervical spine. The dens is intact. The vertebral body heights and disc spaces are well-maintained. There are no significant degenerative changes. The prevertebral soft tissues are unremarkable. There is no radiodense foreign body. RAD/Cerv Spine 4 or 5 Views IMPRESSION: No fracture or dislocation in the cervical spine. Electronically Signed: Gage Akhtar, at 19:43 EDT Tel , Service support , CC: Walt La DO Landing Man: Signed COMPREHENSIVE METABOLIC Collected: 11/23/2017 Status: F Source: [place] 4:09 PM [facility] REPOSITORY TYPE CODE TESTS RESULT OUT OF RANGE REFERENCE UNITS LAB L501.0100 74-106 mg/dL Normal GLU 105 Result Comment: Fasting Glucose result from 100 to 125 mg/dL suggests IMPAIRED HOMEOSTASIS per A.D.A. criteria. Please note revised GLUCOSE reference range effective 2017. LAB L501.1000 7-18 mg/dL Normal BUN 15 LAB L501.1100 0.55-1.02 mg/dL Normal CREAT,SERUM 0.92 Result Comment: The validity of the calculated GFR AND GFRAA in patients over 70 years has not been determined. Clinical correlation is essential. LAB L501.1110 >60 mL/min Normal EST GFR 66 Result Comment: Non- GFR Calc LAB L501.1115 >60 mL/min Normal EST GFR - AA 80 Result Comment: GFR Calc LAB L501.1300 10-20 RATIO Normal BUN/CRE 16.3 LAB L501.1500 6.4-8.2 g/dL T Normal PROT 7.8 LAB L501.1800 3.2-5.0 g/dL Normal ALB 3.8 LAB L501.1950 2.2-4.2 g/dL Normal GLOB 4.0 LAB L501.2000 0.9-2.4 RATIO Normal A/G 1.0 LAB L501.2200 8.5-10.1 mg/dL CA Normal 8.8 LAB L501.4100 15-37 U/L Normal AST 26 LAB L501.4305 45-117 U/L High ALK P 131 LAB L501.4405 13-56 U/L Normal ALT 36 LAB L501.4600 0.20-1.00 mg/dL T Normal BILI 0.20 LAB L501.5300 136-145 mmol/L NA Normal 144 LAB L501.5600 3.5-5.1 mmol/L K Normal 3.8 LAB L501.5900 98-107 mmol/L CL Normal 106 LAB L501.6100 21.0-32.0 mmol/L Normal CO2 27.0 LAB L501.6200 5-15 Normal GAP 11 Performed By: #### L500.4050 #### [facility] [address] [place], [address] CBC W/DIFF, AUTOMATED Collected: 11/23/2017 Status: F Source: [place] 4:09 PM [facility] REPOSITORY TYPE CODE TESTS RESULT OUT OF RANGE REFERENCE UNITS LAB L100.1000 4.4-11.0 K/mm3 Normal WBC 4.5 LAB L100.1200 4.2-5.4 M/mm3 Normal RBC 4.40 LAB L100.1300 12.0-15.0 g/dl Normal HGB 13.4 LAB L100.1400 37-47 % Normal HCT 40.9 LAB L100.1500 81-99 fL Normal MCV 93.0 LAB L100.1600 27.0-32.0 pg Normal MCH 30.5 LAB L100.1700 32-36 g/gl Normal MCHC 32.8 LAB L100.1810 11.6-14.6 % Normal RDW CV 13.8 LAB L100.1820 35.1-43.9 fl High RDW SD 47.2 LAB L100.1900 150-450 K/mm3 Normal PLT 178 LAB L100.2000 6.2-12.0 fl Normal MPV 11.8 LAB L100.2100 47-70 % High NEUT% 77.1 LAB L100.2200 19-41 % Low LY% 15.0 LAB L100.2300 0-10 % Normal MONO% 5.3 LAB L100.2400 0-5 % Normal EO% 2.0 LAB L100.2500 0-1 % Normal BASO% 0.4 LAB L100.2550 0.0-0.9 % Normal IM GRAN % 0.200 Result Comment: IG% - Immature Granulocytes (promyelocytes, myelocytes and metamyelocytes) > 1% indicates that a LEFT SHIFT is Present. LAB L100.2620 2.0-7.7 X10 3/uL Normal Absolute Neut 3.5 LAB L100.2720 0.83-4.51 X10 3/ul Low Absolute Lymph 0.68 Performed By: #### L100.0100 #### [facility] [address] [place], [address] Observed: 10/04/2017 Status: F Source: [place] CULTURE, URINE 5:38 PM [facility] REPOSITORY Urine Culture ORGANISM 1: Mixed Gram Positive Organisms [place] Count 50,000-80,000 MIX CULTURE Mixed contaminants. Submit a new specimen if indicated. Performed By: #### M100.0650 #### [facility] [address] [place], [address] CBC W/DIFF, AUTOMATED Collected: 10/04/2017 Status: F Source: [place] 11:30 AM [facility] REPOSITORY TYPE CODE TESTS RESULT OUT OF RANGE REFERENCE UNITS LAB L100.1000 4.4-11.0 K/mm3 Normal WBC 4.5 LAB L100.1200 4.2-5.4 M/mm3 Normal RBC 4.44 LAB L100.1300 12.0-15.0 g/dl Normal HGB 13.6 LAB L100.1400 37-47 % Normal HCT 40.8 LAB L100.1500 81-99 fL Normal MCV 91.9 LAB L100.1600 27.0-32.0 pg Normal MCH 30.6 LAB L100.1700 32-36 g/gl Normal MCHC 33.3 LAB L100.1810 11.6-14.6 % Normal RDW CV 13.4 LAB L100.1820 35.1-43.9 fl High RDW SD 44.3 LAB L100.1900 150-450 K/mm3 Normal PLT 180 LAB L100.2000 6.2-12.0 fl Normal MPV 11.4 LAB L100.2100 47-70 % High NEUT% 80.0 LAB L100.2200 19-41 % Low LY% 4.2 LAB L100.2300 0-10 % High MONO% 12.5 LAB L100.2400 0-5 % Normal EO% 2.7 LAB L100.2500 0-1 % Normal BASO% 0.4 LAB L100.2550 0.0-0.9 % Normal IM GRAN % 0.200 Result Comment: IG% - Immature Granulocytes (promyelocytes, myelocytes and metamyelocytes) > 1% indicates that a LEFT SHIFT is Present. LAB L100.2620 2.0-7.7 X10 3/uL Normal Absolute Neut 3.6 LAB L100.2720 0.83-4.51 X10 3/ul Low Absolute Lymph 0.19 LAB L100.4500 Normal SMEAR COMMENT COMMENT Result Comment: SLIDE SCANNED - LYMPHOPENIA NOTED. Performed By: #### L100.0100 #### [facility] [address] [facility]. [place], [place], [address] COMPREHENSIVE METABOLIC Collected: 10/04/2017 Status: F Source: [facility] 11:30 AM [facility] REPOSITORY TYPE CODE TESTS RESULT OUT OF RANGE REFERENCE UNITS LAB L501.0100 74-106 mg/dL Normal GLU 89 Result Comment: Please note revised GLUCOSE reference range effective 2017. LAB L501.1000 7-18 mg/dL Normal BUN 14 LAB L501.1100 0.55-1.02 mg/dL Normal CREAT,SERUM 0.96 Result Comment: The validity of the calculated GFR AND GFRAA in patients over 70 years has not been determined. Clinical correlation is essential. LAB L501.1110 >60 mL/min Normal EST GFR 63 Result Comment: Non- GFR Calc LAB L501.1115 >60 mL/min Normal EST GFR - AA 76 Result Comment: GFR Calc LAB L501.1300 10-20 RATIO Normal BUN/CRE 14.6 LAB L501.1500 6.4-8.2 g/dL T Normal PROT 7.5 LAB L501.1800 3.2-5.0 g/dL Normal ALB 3.7 LAB L501.1950 2.2-4.2 g/dL Normal GLOB 3.8 LAB L501.2000 0.9-2.4 RATIO Normal A/G 1.0 LAB L501.2200 8.5-10.1 mg/dL CA Normal 8.7 LAB L501.4100 15-37 U/L Normal AST 20 LAB L501.4305 45-117 U/L High ALK P 127 LAB L501.4405 13-56 U/L Normal ALT 29 LAB L501.4600 0.20-1.00 mg/dL T Normal BILI 0.50 LAB L501.5300 136-145 mmol/L NA Normal 139 LAB L501.5600 3.5-5.1 mmol/L K Normal 4.2 LAB L501.5900 98-107 mmol/L High CL 108 LAB L501.6100 21.0-32.0 mmol/L Normal CO2 25.0 LAB L501.6200 5-15 Normal GAP 6 Performed By: #### L500.4050 #### [facility] [address] [facility] [place], [address] DEXA BONE DENSITY Observed: 08/02/2017 Status: F Source: [place] STUDY () 3:54 PM [facility] REPOSITORY [facility] Imaging Services [address] [place] [address] Dexa Bone Density Study () MR#: [id number] Acct: [id number] Name: MEGGAN VILLALOBOS Rep #: [id number] : 1955 F 61 From: Feroz Nowak MD PCP: Walt La DO Status: REG CLI Study: Dexa Bone Density Study () Date of Exam: 08/02/17 Exam# [id number] Ordering Dr: Walt La DO STUDY: DUAL ENERGY X-RAY ABSORPTIOMETRY / DXA REASON FOR EXAM: Female, 61 years old. The patient is postmenopausal. Loss of height. Chronic steroid use. TECHNIQUE: Bone Mineral Density (BMD) measurements of lumbar spine and bilateral hips were obtained. COMPARISON: Comparison is made with prior study dated August 11, 2005. FINDINGS: Lumbar Spine (L1-L4): g/cm2 (1.195) / T-score (0.1) / Z-score (1.4) Findings are suggestive of normal bone density with a low fracture risk. Left Femur Total: g/cm2 (0.799) / T-score (-1.7) / Z- score (-0.7) Left Femoral Neck: g/cm2 (0.804) / T-score (-1.7) / Z- score (-0.4) Right Femur Total: g/cm2 (0.746) / T-score (-2.1) / Z- score (-1.1) Right Femoral Neck: g/cm2 (0.794) / T-score (-1.8) / Z-score (-0.5) The T-Scores on the most recent prior examination were: Lumbar Spine (L1-L4): There has been improvement of bone density since the previous examination. Left Femur Total: which represents a worsening of 7.1%. Right Femur Total: which represents a worsening of 8.4%. HPBD/Dexa Bone Density Study (HP) IMPRESSION: The patient is considered osteopenic as outlined below according to World Marshall Organization (WHO) criteria with a moderate fracture risk. There has been worsening of bone density since the previous examination. Reference Information: The T-score is the number of standard deviations above or below the standard which is normal for young adults at their peak bone mineral density. The World Health Organization (WHO) interprets the T-scores as follows: Above -1 Normal bone density Between -1 and -2.5 Osteopenia Equal to / or below -2.5 Osteoporosis As a practical clinical guideline, osteopenia may be graded as follows: Mild -1 through -1.5 Moderate -1.6 through -2.0 Severe -2.1 through -2.4 The Z-score is the number of standard deviations above or below age-matched controls. A Z-score of less than -1.5 would be considered abnormal. References: 1. NIH Osteoporosis and Related Bone Diseases http://www.osteo.org 2. International Society for Clinical Densitometry http://www.iscd.org 3. National Osteoporosis Foundation http://www.nof.org Electronically Signed: Feroz Nowak MD at 8:12 EDT Tel [phone], Service support , CC: Walt La DO Landing Man: Signed SCREENING MAMM (CAD), Observed: 08/01/2017 Status: F Source: [place] BILAT 3:13 PM [facility] REPOSITORY [facility] Imaging Services [address] [place] [address] SCREENING MAMM (CAD), BILAT MR#: [id number] Acct: [id number] Name: MEGGAN VILLALOBOS Rep #: [id number] : 1955 F 61 From: Feroz Nowak MD PCP: Walt La DO Status: REG CLI Study: SCREENING MAMM (CAD), BILAT Date of Exam: 08/01/17 Exam# [id number] Ordering Dr: Walt La DO MAMMOGRAPHY - BILATERAL SCREENING REASON FOR EXAM: Female, 61 years old. Routine annual screening examination. PERTINENT HISTORY: Mother with breast cancer. TECHNIQUE: Digital bilateral breast ortiz (3D mammographic acquisition) in the CC and MLO projections. 2-D mediolateral oblique (MLO) and craniocaudad (CC) views of both breasts were obtained. CAD: Full Field Digital Mammography with Computer Added Detection was performed. COMPARISON: Comparison is made with prior study dated July 17, 2015 and February 22, 2013. FINDINGS: Breast Composition: The breasts are heterogeneously dense, which may obscure small masses. There are no dominant masses or suspicious calcifications. No other significant abnormalities are identified. There has been no significant change since the prior study. HPBI/SCREENING MAMM (CAD), BILAT IMPRESSION: Stable bilateral screening mammogram. Yearly follow-up mammogram recommended. (A) ASSESSMENT CATEGORY: BIRADS Category 1: Negative. A letter regarding these results will be sent to the patient by the facility within 30 days. Approximately 10% of breast cancers are not detected by mammography. A normal mammogram should not delay biopsy of a clinically suspicious abnormality. [id number] Electronically Signed: Feroz Nowak MD at 16:02 EDT Tel [phone], Service support , CC: Walt La DO Landing Man: Signed LIPID PROFILE Collected: 07/26/2017 Status: F Source: [place] 10:34 AM [facility] REPOSITORY TYPE CODE TESTS RESULT OUT OF RANGE REFERENCE UNITS LAB L501.4900 200 mg/dL Normal CHOL 182 Result Comment: <200 mg/dL Desirable 200-240 mg/dL Borderline >240 mg/dL High Risk LAB L501.5000 mg/dL Normal TRIG 96 Result Comment: The drugs N-Acetylcysteine and Metamizole may falsely depress this assay. Serum Triglycerides Reference Interval Normal <150 mg/dL Borderline high 150 - 199 mg/dL High 200 - 499 mg/dL Very High > or = 500 mg/dL LAB L501.6400 mg/dL Normal HDL 68 Result Comment: The drugs N-Acetylcysteine and Metamizole may falsely depress this assay. Reference Range HDL <40 mg/dL Low HDL Cholesterol HDL >or= 60 mg/dL High HDL Cholesterol LAB L501.6500 0-130 mg/dL Normal LDL 95 LAB L501.6600 5-40 mg/dL Normal VLDL 19 Performed By: #### L500.4100 #### [facility] [address] [place], [address] VITAMIN B12 Collected: 07/26/2017 Status: F Source: [place] 10:34 AM [facility] REPOSITORY TYPE CODE TESTS RESULT OUT OF RANGE REFERENCE UNITS LAB L503.0105 211-911 pg/mL Normal Vitamin B12 266 Performed By: #### L503.0105, L506.1000 #### [facility] [address] [place], [place], [address] VITAMIN D,25 HYDROXY Collected: 07/26/2017 Status: F Source: [place] 10:34 AM [facility] REPOSITORY TYPE CODE TESTS RESULT OUT OF REFERENCE UNITS RANGE LAB L506.1000 29.95-100.01 ng/mL Low Vitamin D 29.0 25-OH Result Comment: Vitamin D 25(OH) Status Range Deficiency <20 ng/mL (50nmol/L) Insuffciency 20 - 30 ng/mL (50 - 75 nmol/L) Sufficiency 30 - 100 ng/mL (75 - 250 nmol/L) Toxicity >100 ng/mL (>250 nmol/L) Performed By: #### L503.0105, L506.1000 #### [facility] [address] [place], [address] CBC W/DIFF, AUTOMATED Collected: 07/18/2017 Status: F Source: [place] 12:36 PM [facility] REPOSITORY TYPE CODE TESTS RESULT OUT OF RANGE REFERENCE UNITS LAB L100.1000 4.4-11.0 K/mm3 Normal WBC 4.9 LAB L100.1200 4.2-5.4 M/mm3 Normal RBC 4.47 LAB L100.1300 12.0-15.0 g/dl Normal HGB 13.4 LAB L100.1400 37-47 % Normal HCT 41.6 LAB L100.1500 81-99 fL Normal MCV 93.1 LAB L100.1600 27.0-32.0 pg Normal MCH 30.0 LAB L100.1700 32-36 g/gl Normal MCHC 32.2 LAB L100.1810 11.6-14.6 % Normal RDW CV 13.6 LAB L100.1820 35.1-43.9 fl High RDW SD 45.6 LAB L100.1900 150-450 K/mm3 Normal PLT 155 LAB L100.2000 6.2-12.0 fl Normal MPV 11.4 LAB L100.2100 47-70 % High NEUT% 75.7 LAB L100.2200 19-41 % Low LY% 16.4 LAB L100.2300 0-10 % Normal MONO% 5.7 LAB L100.2400 0-5 % Normal EO% 1.6 LAB L100.2500 0-1 % Normal BASO% 0.4 LAB L100.2550 0.0-0.9 % Normal IM GRAN % 0.200 Result Comment: IG% - Immature Granulocytes (promyelocytes, myelocytes and metamyelocytes) > 1% indicates that a LEFT SHIFT is Present. LAB L100.2620 2.0-7.7 X10 3/uL Normal Absolute Neut 3.7 LAB L100.2720 0.83-4.51 X10 3/ul Low Absolute Lymph 0.80 Performed By: #### L100.0100 #### [facility] [address] [facility] [place], [address] EXTREMITY LOWER Observed: 07/01/2017 Status: F Source: [place] WITHOUT CONTRA 3:46 PM [facility] REPOSITORY [facility] Imaging Services [address] [place] [address] Extremity Lower without Contra MR#: [id number] Acct: [id number] Name: MEGGAN VILLALOBOS Rep #: [id number] : 1955 F 61 From: Gage Ivy MD PCP: Walt La DO Status: REG CLI Study: Extremity Lower without Contra Date of Exam: 07/01/17 Exam# [id number] Ordering Dr: Angel Blackman PA-C STUDY: CT LEFT FOOT REASON FOR EXAM: Female, 61 years old. Nondisplaced fracture, MS, vitamin D deficiency RADIATION DOSAGE (If Supplied By Facility): CTDI vol = (6.53) mGy, DLP = (150.51 mGycm) TECHNIQUE: The patient was scanned in a multi detector CT scanner. High resolution transaxial imaging was performed. Sagittal and coronal images were reconstructed. Individualized dose optimization techniques were used for this CT. COMPARISON: X-ray 06/01/2017 FINDINGS: There is nondisplaced fracture at the base of the second metatarsal. There is sclerosis at the fracture margins (image 22, 21, 20/39 sagittal recon, 46/87 axial). The tarsometatarsal joints are well aligned. There is no osseous destruction. CT/Extremity Lower without Contra IMPRESSION: Nonunited fracture, base second metatarsal Electronically Signed: Gage Ivy MD at 12:01 EST Tel , Service support , CC: Walt La DO; Angel JOLLY Landing Man: Signed ALLERGIES ALLERGIES DATE TYPE / CODE NAME / CODE REACTION SEVERITY SOURCE 08/04/2014 Drug benazepril Unknown Unknown [place] Allergy/416 HCl/[id number](RX Community 234008([facility] ED CT) Repository 08/04/2014 Drug amlodipine Unknown Unknown [place] Allergy/416 besylate/[id number] Community 780408([place] [address](RXNORM) [facility] ED CT) Repository 08/04/2014 Drug Penicillins/F0010 Unknown Unknown [place] Allergy/416 83487(RXNORM) [facility] 986738([facility] ED CT) Repository 08/04/2014 Drug codeine/[id number] Unknown Unknown [place] Allergy/416 0(RXNORM) [facility] 672335([facility] ED CT) Repository 08/04/2014 Drug aspirin/[id number] Unknown Unknown [place] Allergy/416 7(RXNORM) [facility] 453162([facility] ED CT) Repository 08/04/2014 Drug adhesive/[id number] Unknown Unknown [place] Allergy/416 45(RXNORM) [facility] 392620([facility] ED CT) Repository ENCOUNTERS ENCOUNTERS ADMIT/DISCHARGE ACCOUNT ADMITTING ENCOUNTER LOCATION SOURCE NUMBER CLASS 04/11/2018 [id number] [facility] ing:MRI Repository 03/29/2018 [id number] [facility] ing:MTLAB Repository 02/14/2018 [id number] [facility] ing:MTLAB Repository 12/06/2017 [id number] [facility] ing:RAD Repository 11/23/2017 [id number] [facility] Hospital ing:MTLAB Repository 10/04/2017 [id number] [facility]ulatory [facility] acute hospital Hospital ing:LABSPEC Repository 10/04/2017 [id number] [facility]ulatory [facility] acute hospital Hospital ing:MTLAB Repository 08/02/2017 [id number] Ambulatory General acute hospital Hospital ing:BD Repository 08/01/2017 [id number] Ambulatory General acute hospital Hospital ing:BI Repository 07/26/2017 [id number] [facility], Ambulatory J5Vrbreebh:Andrea MONTOYA [place] Hospital Repository 07/26/2017 [id number] Ambulatory General acute hospital Hospital ing:BFHLAB Repository 07/18/2017 [id number] Ambulatory General acute hospital Hospital ing:LAB.FUTUR Repository E 07/01/2017 [id number] Ambulatory General acute hospital Hospital ing:CT Repository PAYERS PAYERS ENCOUNTER GUARANTOR PAYER SUBSCRIBER SOURCE 04/11/2018 YOANDY [id number] Primary YOANDY A MILLERDOB: [place] [facility] [id number] [place] Number: [facility] [id number]: 330 [id number] Repository [phone] () Date:3285-75-76ZJ [address], [place] [address]AF: 04/11/2018 Secondary MEGGAN S [place] Insurance:[employer] Community MEDICAREPolicy MILLERDOB: Hospital Number: [id number] Repository [id number] Date:8638-98-98PP [address] [place] [address]IA: 04/11/2018 Tertiary NOT GIVENUNK [place] Insurance:SELF PAY [facility] Number: Effective Repository Date:2018-04-03 03/29/2018 YOANDY [id number] Primary YOANDY A MILLERDOB: [place] Insurance:ANTHEMPolic [id number] Number: Hospital [id number]: (330) [id number] Repository [phone] (HP) Date:5490-03-43KR [address]TMIZDNZ [place] [address]KG: 03/29/2018 Secondary MEGGAN S [place] Insurance:[employer]ARE [employer]UMESSER Community MEDICAREPolicy MILLERDOB: Hospital Number: [id number] Repository [id number] Date:9429-98-80NW [address] [place] [address]32[address]BF: 03/29/2018 Tertiary NOT GIVENUNK [place] Insurance:SELF PAY [facility]: Effective Repository Date:2018-03-29 02/14/2018 YOANDY A [id number] Primary YOANDY A MILLERDOB: [place] Insurance:ANTHEMPolic [id number] Number: Hospital [address]Ekc: (330) [id number] Repository [phone] (HP) Date:6989-84-96QG [address]KJPXPBF [place] [address]VR: 02/14/2018 Secondary MEGGAN S [place] Insurance:[employer]ARE [employer]UMESSER Community MEDICAREPolicy MILLERDOB: Hospital Number: [id number] Repository [id number] Date:8759-67-90NX BOX [facility] [address]SP: 02/14/2018 Tertiary NOT GIVENUNK [place] Insurance:SELF PAY [facility] Hospital Number: Effective Repository Date:2018-02-14 12/06/2017 YOANDY A [id number] Primary YOANDY A MILLERDOB: [place] Insurance:ANTHEMPolic [id number] Number: Hospital [address]Fra: (330) [id number] Repository [phone] (HP) Date:2687-40-31GY [address]DHDXFJL [place] [address]JU: 12/06/2017 Secondary MEGGAN S [place] Insurance:[employer]ARE [employer]UMESSER Community MEDICAREPolicy MILLERDOB: Hospital Number: [id number] Repository [id number] Date:1235-78-90NQ [address]OX [facility] [address]OI: 12/06/2017 Tertiary NOT GIVENUNK [place] Insurance:SELF PAY [facility] Number: Effective Repository Date:2017-12-06 11/23/2017 YOANDY Brinda [id number] Primary YOANDY A MILLERDOB: [place] Insurance:ANTHEMPolic [id number] Number: Hospital [id number]: (330 [id number] Repository [phone] (HP) Date:8301-81-87LU [address] [place] [address]TN: 11/23/2017 Secondary MEGGAN S [place] Insurance:[employer]ARE [employer]UMESSER Community MEDICAREPolicy MILLERDOB: Hospital Number: [id number] Repository [id number] Date:5393-18-36DA [address] [address]CQ: 11/23/2017 Tertiary NOT GIVENUNK [place] Insurance:SELF PAY [facility] Number: Effective Repository Date:2017-11-23 10/04/2017 YOANDY A [id number] Primary YOANDY A MILLERDOB: [place] Insurance:ANTHEMPolic [id number] Number: Hospital [address]Ijs: (330) [id number] Repository [phone] (HP) Date:1533-86-37UQ [address] [place] [address] 567[address]ZT: 10/04/2017 Secondary MEGGAN S [place] Insurance:[employer]ARE [employer]UMESSER Community MEDICAREPolicy MILLERDOB: Hospital Number: [id number] Repository [id number] Date:4540-40-12EI [address] [place] [address] 616[address]YN: 10/04/2017 Tertiary NOT GIVENUNK [place] Insurance:SELF PAY [facility] Number: Effective Repository Date:2017-10-04 10/04/2017 YOANDY A [id number] Primary YOANDY A MILLERDOB: [place] Insurance:ANTHEMPolic [id number] [place] Number[facility] Hospital [address]Oun: (330) [id number] Repository [phone] () Date:8962-27-08VK [address] [place] [address] 26[address]AN: 10/04/2017 Secondary MEGGAN S [place] Insurance:[employer]ARE [employer]UMESSER Community MEDICAREPolicy MILLERDOB: Hospital Number: [id number] Repository [id number] Date:7780-85-03YS [address] [place] [address] 195[address]PW: 10/04/2017 Tertiary NOT GIVENUNK [place] Insurance:SELF PAY [facility] Hospital Number: Effective Repository Date:2017-10-04 08/02/2017 YOANDY A [id number] Primary YOANDY A MILLERDOB: [place] Insurance:ANTHEMPolic [id number] [place] Number: Hospital [address]Sul: (330) [id number] Repository [phone] () Date:3277-98-11UF [address] [place] [address] 28[address]ZY: 08/02/2017 Secondary MEGGAN S [place] Insurance:[employer] CARE [employer]UMESSER Community MEDICAREPolicy MILLERDOB: Hospital Number: [id number] Repository [id number] Date:5681-65-06VV [address]AN[place], [place] [address]CR: 08/02/2017 Tertiary NOT GIVENUNK [place] Insurance:SELF PAY [facility] Number: Effective Repository Date:2017-07-26 08/01/2017 YOANDY A [id number] Primary YOANDY A MILLERDOB: [place] Insurance:ANTHEMPolic [id number] [place] Number: Hospital [id number]: (330) [id number] Repository [phone] (HP) Date:0022-13-29NX [address]JNVCVYT, [place] [address]MZ: 08/01/2017 Secondary MEGGAN S [place] Insurance:[employer] CARE [employer]UMESSER Community MEDICAREPolicy MILLERDOB: Hospital Number: [id number] Repository [id number] Date:6800-45-06UL [address], [place] [address]BI: 08/01/2017 Tertiary NOT GIVENUNK [place] Insurance:SELF PAY [facility] Hospital Number: Effective Repository Date:2017-07-14 07/26/2017 MEGGAN S Primary YOANDY A MILLERDOB: [facility] Insurance:[facility] [id number] [facility] : ANTHEMPolicy Number: [address] Repository [id number] [facility] Date:1959-05-[address] [place] 8120-83-97JX [address]Uxp: [phone] () [address] [place] [address]UT: 07/26/2017 Secondary MEGGAN S [place] Insurance:[facility] MEDICAREPolicy : Repository Number: [id number] Date:1958-05-16 - [place] 1318-88-21ZR [address] [place] [id number]: 07/26/2017 YOANDY A [id number] Primary YOANDY A MILLERDOB: [place] [facility] [id number] Number: [facility] [address]Zpj: (330) [id number] Repository [phone] () Date:0057-22-54JV [address]JLBEBZV, [place] [address]QU: 07/26/2017 Secondary MEGGAN S [place] Insurance:SUMMA CARE HAUMESSER Community MEDICAREPolicy MILLERDOB: Hospital Number: [id number] Repository [id number] Date:1321-23-62XV [address], [place] [address]MR: 07/26/2017 Tertiary NOT GIVENUNK [place] Insurance:SELF PAY [facility] Hospital Number: Effective Repository Date:2017-07-26 07/18/2017 Yoandy Brinda [id number] Primary Yoandy A MillerDOB: [place] Insurance:ANTHEMPolic [id number] Number: Hospital [address]Brl: (330) [id number] Repository [phone] (HP) Date:1915-65-92IH [address] [place] [address]24[address]OU: 07/18/2017 Secondary MEGGAN S [place] Insurance:[employer]ARE HAUMESSER Community MEDICAREPolicy MILLERDOB: Hospital Number: [id number] Repository [id number] Date:0480-95-35WX [address] [place] [address]79[address]PM: 07/18/2017 Tertiary NOT GIVENUNK [place] Insurance:SELF PAY [facility] Hospital Number: Effective Repository Date:2017-07-11 07/01/2017 Yoandy Brinda [id number] Primary Yoandy A MillerDOB: [place] Insurance:ANTHEMPolic [id number] Number: Hospital [id number]: (330) [id number] Repository [phone] (HP) Date:5683-10-87SM [address] [place] [address]TM: 07/01/2017 Secondary MEGGAN S [place] Insurance:[employer]ARE [employer]UMESSER Community MEDICAREPolicy MILLERDOB: Hospital Number: [id number] Repository [id number] Date:2637-58-04AH [address] [place] [address] 794[address]TV: 07/01/2017 Tertiary NOT GIVENUNK [place] Insurance:SELF PAY [facility]: Effective Repository Date:2017-06-23
--- OUTSIDE RECORDS SUMMARY | 2018-05-24 04:52 | XMS RPT_ITS ---
:1955 Author Organization [employer] Address [address] [place] [address] Phone Care Team Providers Name Role Phone Jose Roberto MCGOWAN, Juan R Pearce Reason for Visit Reason For Visit Description Start Date New - 1st visit with practice Preliminary reason for visit data, not yet signed by the author as of left foot pain Preliminary reason for visit data, not yet signed by the author as of Chief Complaint Chief Complaint Description Start Date left foot pain Preliminary chief complaint data, not yet signed by the author as of Instructions Instruction Description Start Date CompletedPatient advised to follow-up with Primary Care Physician for BMI management. Plan of Care Type Date Detail Patient education \cps-[email or web address]\CPS_PtEducation\CD [email or web address].pdf Medications Medication Instructions Start Stop Generic Name NDC Provider Date Date AMITRIPTYLINE HCL 1 tablet once / AMITRIPTYLINE 03013317139 Terena Ramirez 100 MG TABS daily 09 HCL RN ATENOLOL 50 MG 1 tablet twice / ATENOLOL 34993165987 Terena Ramirez TABS daily as RN directed BACLOFEN 20 MG 1 tablet three / BACLOFEN 35182343154 Terena Ramirez TABS times daily as RN directed BUMEX 2 MG TABS 1 tablet twice / BUMETANIDE 07039504484 Terena Ramirez daily as RN directed PRILOSEC OTC 20 1 tablet twice / OMEPRAZOLE 74512658928 Terena Ramirez MG TBEC daily as MAGNESIUM RN directed TECFIDERA 120 MG 1 capsule twice / DIMETHYL [id number] Terena Ramirez CPDR daily as FUMARATE RN directed TRAMADOL HCL 50 1 tablet as / TRAMADOL HCL 86186336539 Terena Ramirez MG TABS directed as RN needed VITAMIN A CAPS 50,000iu as / VITAMIN A CAPS [id number] Terena Ramirez directed as RN needed CYANOCOBALAMIN as directed as / CYANOCOBALAMIN [id number] Terena Ramirez 1000 MCG/ML SOLN needed RN SUMATRIPTAN 1 tablet as / SUMATRIPTAN 98612031294 Terena Ramirez SUCCINATE 50 MG directed as SUCCINATE RN TABS needed ADVIL 200 MG TABS twice daily as / IBUPROFEN [id number] Terena Ramirez directed RN Conditions or Problems Problem Name Problem Onset Status Entry Provider Comment Standard Annotate Code Date Date Description Multiple [id number] Active Juan R Peterson Multiple sclerosis ( Cid sclerosis CT) Closed 52959881 Active Juan R Peterson Closed traumatic nondisplaced (SN Cid fracture of fracture of CT) second second metatarsal metatarsal bone bone of right foot with nonunion, subsequent encounter Closed 57452738 Active Juan R Peterson Closed 3rd, 4th, nondisplaced (SN Cid fracture of 5th; fracture of CT) metatarsal traumatic metatarsal bone bones of right foot with routine healing, subsequent encounter Allergies, Adverse Reactions, Alerts Allergy Name Reaction Start Date Severity Status Provider Description ASPIRIN Critical Active Terena Ramirez RN ADHESIVE TAPE / Critical Active Terena Ramirez RN BANDAGE LOTREL Critical Active Terena Ramirez RN PENICILLIN Critical Active Terena Ramirez RN CODEINE PHOSPHATE Critical Active Terena Ramirez RN Social History Concept Description Observation Name Observation Value Units Start Date Employment detail OCCUPATION#1 [employer] Preliminary social history data, not yet signed by the author as of Vital Signs Date Name Value Unit Description BMI (Body Mass 38.16 kg/m2 Body Mass Index Index) [Ratio] Preliminary vital sign data, not yet signed by the author as of BP Diastolic 68 mm[Hg] blood pressure, diastolic Preliminary vital sign data, not yet signed by the author as of BP Systolic 130 mm[Hg] blood pressure, systolic Preliminary vital sign data, not yet signed by the author as of Heart Rate 70 /min pulse rate E&M Preliminary vital sign data, not yet signed by the author as of Height 64.478012 [in_us] height E&M Preliminary vital sign data, not yet signed by the author as of Height 164 cm height in centimeters E&M Preliminary vital sign data, not yet signed by the author as of Weight Measured 225 [lb_av] weight E&M Preliminary vital sign data, not yet signed by the author as of Weight Measured 102 kg weight in kilograms E&M Preliminary vital sign data, not yet signed by the author as of Results Date Name Value Unit Range Flag Description Office Visit: New - 1st visit with practice, Rm: 12 MEDS REVIEW Done Documentation of current medications (procedure) Preliminary observation data, not yet signed by the author as of Preliminary observation data, not yet signed by the author as of CT SCAN HX of the left lower CT scan extremity on history 07/01/2017 at [facility] Preliminary observation data, not yet signed by the author as of XRAY HX of the left foot on xray history 06/23/2017 at [facility] Preliminary observation data, not yet signed by the author as of Clinical Summary: Scanned ROS Summary ROS: Denies genitourinary review of systems, E&M ROS: GI Denies ROS gastrointestinal E&M ROS ENDO COM Cold endocrine system, Intolerance,Heat review of, comments Intolerance ROS ENDO Complains endocrine ROS ROS MSK COMM Muscle ROS Musculoskeletal Weakness,Pain,Sti comments ffness ROS:MUSCSKEL Complains ROS musculoskeletal E&M ROS: PSYCH Denies ROS psychiatric E&M ROS HEME Denies ROS hematologic/lymphatic E&M ROS SKIN Denies ROS skin E&M ROS ENT Denies ROS ENT E&M ROS:GENERAL Denies ROS general E&M ROS_NEUR_COM Numbness,Tingling Review of Systems ,Loss Of Neurologic comment Balance,Weakness ROS: NEURO Complains ROS neurological E&M ROS:PULMON Denies ROS pulmonary E&M ROS CARD COM Ankle ROS Cardiac: Comments Swelling,Leg Swelling ROS: CARDIAC Complains ROS cardiovascular E&M Clinical Summary: HMSPatientID OOP account number Clinical Lists Update: Preload Extended SMOK STATUS former smoker Tobacco smoking status [facility] Clinical Summary: Data Submitted by Patient in Portal DEP EXERCISE No data entered by patient, exercise history DEP DRUG USE No data entered by patient, drug (of abuse) use DEP ETOH USE No data entered by patient, alcohol (ethanol or ETOH) use [facility] FSMO 2009 data entered by patient, social history, former smoker TOBUSEWHEN 30 tobacco use, when do you smoke? 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 medical history of patient's brother(s), comments BROTHERS [facility] Arthritis, Heart medical history of disease, High patient's blood pressure, brother(s) Melanoma SISTERS PMH High blood medical history of pressure, patient's sister Osteoporosis SISTER A/D My sister(s)' sister of health history is patient(s) alive unknown or DEP DAD PMH Arthritis, data entered by Difficulty with patient, father's anesthesia, Heart medical history disease, High blood pressure, Kidney disease, Stroke/TIA, Vascular disease DEATHCAU DAD Heart Gave out cause of , father FATHER A/D father of patient is alive or [facility] MOM PMH Arthritis, Blood data entered by clots, Diabetes - patient, mother's insulin dependent, medical history Difficulty with anesthesia, Heart disease, High blood pressure, Hyperthyroidism, Melanoma, Obesity, Osteoporosis DEATHCAU MOM Pulmonary Embolism cause of , mother MOTHER A/D mother of patient is alive or [facility] Tumor off back Web entered 1955 surgical history comments DEP SURGERY Carpal tunnel, Data entered by Heart cath, patient, history Hysterectomy of past surgeries [facility] PM Hypertension, data entered by Mitral valve patient, past prolapse, Multiple medical history sclerosis, Neuropathy, Osteopenia, Osteoporosis, Skin infections, Stomach ulcers RLATNSHPINFR Self Relationship of informant to patient ALLERGY COMM Lotrel,Adhesive comments about bandage,Aspirin allergies DEP ALG LIST Codeine,Penicillin Data entered by ,I don't have any patient, allergy food allergies.,I list don't have any environmental allergies. DEP MED LIST Advil 200 mg Tab, Data entered by 2 times per patient, day,Sumatriptan 50 medication list mg Tab, as_needed,Vitamin B 12 1 mg/mL Injectable Solution, as_needed,Vitamin A 65781 unt Cap, as_needed,Tramadol 50 mg Tab, as_needed,Tecfider a [address], 2 times per day,Prilosec [address], 2 times per day,Bumex 2 mg Tab, 2 times per day,Baclofen 20 mg Tab, 3 times per day,Atenolol 50 mg Tab, 2 times per day,Amitriptyline 100 mg Tab, 1 times per day Procedures Code Procedure Name Date Entry Date G8730 Pain assessment documented as positive - follow-up documented G8427 Current medications documented 1036F Tobacco screening was negative - non user G8417 BMI documented as above normal parameters - follow-up documented G8783 Blood pressure within normal parameters - no follow-up required 5015F Fracture management ongoing care communicated [facility]-[id number] Patient Encounter Medications Administered No information available. Immunizations No information available. Advance Directives There may be information available, but it has not been provided by the sender. Assessments There may be information available, but it has not been provided by the sender. Review of Systems There may be information available, but it has not been provided by the sender. Family History There may be information available, but it has not been provided by the sender. History of Past Illness There may be information available, but it has not been provided by the sender. History of Present Illness There may be information available, but it has not been provided by the sender.
== END ==
PROVIDERS: Family Provider Family Medicine; PCP Family Medicine; Referring Provider Internal Medicine; Visit Provider Internal Medicine
DX: G35 Multiple sclerosis (principal)
CPT/HCPCS: 70553; 72156; A9585

== ENCOUNTER → 2018-09-01 | Outpatient (CLI) | payer BC, MEDICARE, SELFPAY | END | disposition home or self-care (01) | LOC: BFHLAB 12:00 | PROVIDERS: Family Provider Family Medicine; PCP Family Medicine; Visit Provider Family Medicine | DX: J06.9 Acute upper respiratory infection, unspecified (principal) | CPT/HCPCS: 87633 ==

== ENCOUNTER 2018-09-03 09:01 | Inpatient (IN) | payer BC, MEDICARE, SELFPAY ==
[2018-09-03] VITALS (11 sets, daily range): BP systolic 111–146; BP diastolic 60–74; PULSE 60–78; RESP 14–20; TEMP 36.7–38; O2SAT 94–100; BMI 38.2; BMI 39.2
--- NOTE | 2018-09-03 09:15 | EKG12_ITS ---
Test Reason : WEAKNESS Blood Pressure : / mmHG Vent. Rate : 074 BPM Atrial Rate : 074 BPM P-R Int : 158 ms QRS Dur : 092 ms QT Int : 390 ms P-R-T Axes : 051 040 042 degrees QTc Int : 432 ms Normal sinus rhythm Nonspecific ST abnormality Abnormal ECG Confirmed by JAMAL MCGOWAN, JASON ([id number]), editor map PADILLA BARRETO ([id number]) on 09/06/2018 1:22:13 PM Referred By: Juan Pablo Santos Confirmed By:JASON BERRY MD
--- NOTE | 2018-09-03 09:17 | NURSING ---
NO OLD EKGS
[2018-09-03] MEDS: Acetaminophen 500 MG Tablet 1000 MG PO (09:24)
[2018-09-03] MEDS: Oseltamivir Phosphate 75 MG Capsule PO ×2 (09:25→21:12)
[2018-09-03] MEDS: DiphenhydrAMINE 50 MG/ML Syringe 25 MG IV (09:25)
[2018-09-03] MEDS: Ondansetron 4 MG/2 ML Vial IV (09:26)
[2018-09-03] MEDS: Ketorolac 30 MG/ML Syringe IV (09:26)
[2018-09-03] MEDS: 0.9% Normal Saline 1,000 ML 1000 ML IV (09:26)
[2018-09-03] MEDS: proCHLORPERazine 10 MG/2 ML Vial IV (09:26)
[2018-09-03 09:36] LABS: Absolute Neutrophil Count 2.7 X10^3/uL (2.0-7.7); Hemoglobin 11.9 g/dl (12.0-15.0); Lymphocyte % 9.6 % (19-41); Mean Corp Hgb Conc 33.1 g/gl (32-36); Mean Corpuscular Volume 93.8 fL (81-99); Mean Platelet Vol. 11.6 fl (6.2-12.0); Monocyte# 0.16 X10^3/uL; Monocyte% 5.1 % (0-10); Neutrophil # 2.66 X10^3/uL (2.7-7.7); Platelet Count 80 K/mm3 (150-450); RBC Distribution Width CV 13.9 % (11.6-14.6); RBC Distribution Width SD 47.8 fl (35.1-43.9); Red Blood Count 3.84 M/mm3 (4.2-5.4); White Blood Count 3.1 K/mm3 (4.4-11.0)
--- NOTE | 2018-09-03 09:37 | RAD_ITS ---
STUDY: X-RAY CHEST REASON FOR EXAM: Female, 62 years old. Cough. TECHNIQUE: AP and lateral views of the chest. COMPARISON: February 16, 2016 FINDINGS: There are streaky opacities within the mid and lower lungs. Normal size heart. Normal mediastinum and kulwinder. Normal visualized pulmonary arteries. Normal visualized aortic arch and descending thoracic aorta. Normal visualized thoracic spine. Normal visualized ribs, clavicles, and shoulders. There is no demonstrated abnormality of the visualized soft tissue structures of the upper abdomen. RAD/Chest PA and Lateral IMPRESSION: Streaky opacities within the mid and lower lungs likely secondary to underlying atelectasis and possible evolving pneumonia. Electronically Signed: Dee Dee Nichols MD at 9:59 EDT Tel , Service support ,
[2018-09-03 09:38] LABS: Differential Indicated SCAN CRITERIA MET; POSITIVE COUNT NO; POSITIVE DIFFERENTIAL YES; POSITIVE MORPHOLOGY NO
[2018-09-03 09:47] LABS: BUN 10 mg/dL (7-18); Creatinine, Serum 0.77 mg/dL (0.55-1.02); Estimated Creatinine Clearance 69.04 ml/min; Glucose 96 mg/dL (74-106)
[2018-09-03 09:48] LABS: AST(SGOT) 64 U/L (15-37); Alanine Aminotransfer ALT/SGPT 50 U/L (13-56); Albumin, Serum 3.3 g/dL (3.2-5.0); Alkaline Phosphatase 105 U/L (45-117); Anion Gap 6 (5-15); Calcium,Total 7.7 mg/dL (8.5-10.1); Chloride 105 mmol/L (98-107); EST Glomerular Filtration Rate 81 mL/min (>60); Est Glom Filt Rate - Afr Amer 98 mL/min (>60); Globulin 3.2 g/dL (2.2-4.2); Protein, Total 6.5 g/dL (6.4-8.2); Sodium Level 138 mmol/L (136-145)
[2018-09-03 10:12] LABS: Hypochromasia RARE; Platelet Estimate MOD DEC (ADEQ)
--- NOTE | 2018-09-03 11:50 | NURSING ---
DR ENRIQUE COATES
--- NOTE | 2018-09-03 11:54 | ED.VISSUMM ---
- ER Visit Summary Date of Service: 09/03/18 Chief Complaint: Weakness History of Present Illness: The patient is a [address] La. She reports that she was diagnosed with influenza A 2 days ago in the office. She did get a prescription for Tamiflu but has not filled this yet. She is also placed on doxycycline for cellulitis on her left leg. Patient reports that she has had fevers, chills, sweats cold sweats. She has a scratchy throat and a cough that is nonproductive. She does report that she is mildly short of breath. She denies any wheezing. She is been nausea and had dry heaves. States that she has not been able to keep anything down for 2 days. She has diffuse myalgias. She complains of a headache is 9 out of 10 severity. States that she taken Ultram and Imitrex without relief. Patient does have a history of MS. She reports that she has had generalized weakness since yesterday. States that her legs have been so weak that she is had to crawl around. She denies having had this previously with her MS when she is ill. Physical Examination: Vitals: 100.4, 146/73, 78, 18, 96% on room air which is not hypoxic. General: Well-nourished and well-developed. Head: Normocephalic atraumatic. Neck: Supple, no lymphadenopathy. No JVD. Nontender. Cardiovascular: Regular rate and rhythm. No murmurs. Respiratory: No respiratory distress. Clear to auscultation bilaterally. Abdominal: Soft, nontender, nondistended, normal bowel sounds. No guarding, rebound, or peritoneal signs. Back: Nontender. Extremities: Nontender, no edema. Skin: Normal color, no rash. Neurologic: Alert and oriented ?3. Cranial nerves II through XII are intact. Normal sensation. 3 out of 5 strength in her lower extremities bilaterally. Psych: Normal affect. Test Results: CBC shows a white count of 3.1, H&H of 11.9 and 36.0, platelets of 80, segmented neutrophils 85, lymphs lites of 10. Chem-7 shows potassium 3.0 and calcium 7.7. LFTs show an AST of 64. Chest x-ray in my opinion shows atelectasis. Emergency Department Course and Treatment: Patient was given Compazine, Benadryl, and Toradol IV for her headache and feels much improved. She is given Tamiflu, Tylenol and K-Dur p.o. She is resting comfortably. Treatment Plan: Patient remains very weak and is unable to ambulate. She was discussed with Dr. Santos and will be admitted to the hospital for further evaluation and treatment. Disposition: Admitted in improved condition. Impression: 1. Influenza A. 2. Hypokalemia. 3. Pancytopenia. 4. MS. 5. Generalized weakness. 6. Inability to ambulate. This note was generated with [employer] dictation software. It may contain incorrect words, spelling, and punctuation that were not noted in review of the chart prior to signing ED Disposition - Plan for ED Patient: Referrals: Walt La DO [Primary Care Provider] -
--- NOTE | 2018-09-03 11:55 | NURSING ---
MED SURG OBS ENRIQUE INFLUENZA A, WEAKNESS
--- NOTE | 2018-09-03 11:57 | ED.DCSUM_ITS ---
- ER Visit Summary Date of Service: 09/03/18 Chief Complaint: Weakness History of Present Illness: The patient is a [address] La. She reports that she was diagnosed with influenza A 2 days ago in the office. She did get a prescription for Tamiflu but has not filled this yet. She is also gwen belén on doxycycline for cellulitis on her left leg. Patient reports that she has had fevers, chills, sweats cold sweats. She has a scratchy throat and a cough that is nonproductive. She does report that she is mildly short of breath. She denies any wheezing. She is been nausea and had dry heaves. States that she has not been able to keep anything down for 2 days. She has diffuse myalgias. She complains of a headache is 9 out of 10 severity. States that she taken Ultram and Imitrex without relief. Patient does have a history of MS. She reports that she has had generalized weakness since yesterday. States that her legs have been so weak that she is had to crawl around. She denies having had this previously with her MS when she is ill. Physical Examination: Vitals: 100.4, 146/73, 78, 18, 96% on room air which is not hypoxic. General: Well-nourished and well-developed. Head: Normocephalic atraumatic. Neck: Supple, no lymphadenopathy. No JVD. Nontender. Cardiovascular: Regular rate and rhythm. No murmurs. Respiratory: No respiratory distress. Clear to auscultation bilaterally. Abdominal: Soft, nontender, nondistended, normal bowel sounds. No guarding, rebound, or peritoneal signs. Back: Nontender. Extremities: Nontender, no edema. Skin: Normal color, no rash. Neurologic: Alert and oriented ?3. Cranial nerves II through XII are intact. Normal sensation. 3 out of 5 strength in her lower extremities bilaterally. Psych: Normal affect. Test Results: CBC shows a white count of 3.1, H&H of 11.9 and 36.0, platelets of 80, segmented neutrophils 85, lymphs lites of 10. Chem-7 shows potassium 3.0 and calcium 7.7. LFTs show an AST of 64. Chest x-ray in my opinion shows atelectasis. Emergency Department Course and Treatment: Patient was given Compazine, Benadryl, and Toradol IV for her headache and feels much improved. She is given Tamiflu, Tylenol and K-Dur p.o. She is resting comfortably. Treatment Plan: Patient remains very weak and is unable to ambulate. She was discussed with Dr. Santos and will be admitted to the hospital for further evalu ation and treatment. Disposition: Admitted in improved condition. Impression: 1. Influenza A. 2. Hypokalemia. 3. Pancytopenia. 4. MS. 5. Generalized weakness. 6. Inability to ambulate. This note was generated with [employer] dictation software. It may contain incorrect words, spelling, and punctuation that were not noted in review of the chart prior to signing ED Disposition - Plan for ED Patient: Referrals: Walt La DO [Primary Care Provider] -
--- NOTE | 2018-09-03 12:37 | HP.PCM_ITS ---
Problem List (1) Influenza A bronchitis Status: Acute (2) Exacerbation of multiple sclerosis Status: Chronic (3) Migraine headache Status: Chronic (4) Peripheral neuropathy Status: Chronic History of Present Illness Date of Admission: 09/03/18 Chief Complaint: URI and generalized weakness The patient is a 62 year old F with history of MS with recent diagnosis of influenza A by PCP on 08/31 came to ED with generalized weakness as she was not able to stand up but was crawling. She complain of bilateral lower extremity weakness. Normally she is on wheeled walker. She also has fever, chills, dry cough and was mild short of breath at home since 08/31, . She did not refill her prescription of Tamiflu yet. She was also told that she has a left leg cellulitis and was put on doxycycline by PCP. In ED, she had temperature 100.4 ?F in ED but not associated with tachycardia. Pulse ox 96% on room air. No tachypnea or hypoxia. [] Chest x-ray shows streaky opacities within mid and lower lungs most probably atelectasis but possibility of evolving pneumonia in view of influenza A. Basic blood work shows pancytopenia, WBC 3.1 thousand, platelet count 80,000 and H&H 11.9/36.0. Mild hypokalemia 3.0. Past Medical History Past Medical History (Chronic Problems): Chronic Problems Exacerbation of multiple sclerosis (Chronic) Migraine headache (Chronic) Peripheral neuropathy (Chronic) Allergies adhesive Allergy (Verified 09/03/18 09:02) Unknown amlodipine besylate [From Lotrel] Allergy (Verified 09/03/18 09:02) Unknown aspirin Allergy (Verified 09/03/18 09:02) Unknown benazepril HCl [From Lotrel] Allergy (Verified 09/03/18 09:02) Unknown codeine Allergy (Verified 09/03/18 09:02) Unknown Penicillins Allergy (Verified 09/03/18 09:02) Unknown Home Medications: Ambulatory Orders Medication Instructions Recorded Amitriptyline HCl [Elavil] 100 mg PO QHS 08/04/14 Atenolol [Tenormin (beta marilee)] 50 mg PO DAILY 08/04/14 Atenolol [Tenormin (beta marilee)] 75 mg PO QHS 08/04/14 Baclofen 20 mg PO TID 08/04/14 Cholecalciferol (Vitamin D3) 50,000 unit PO DAILY 08/04/14 [Optimal D3] Cyanocobalamin [Vitamin B12] 100 mcg IM Q30D 08/04/14 Dimethyl Fumarate [Tecfidera] 1 each PO BID 08/04/14 Etodolac [Lodine] 300 mg PO TIDCM #30 capsule 08/04/14 Hydrochlorothiazide [Hctz] 12.5 mg PO DAILY 08/04/14 Hydrocodone/Acetaminophen [Vicodin 1 - 2 tablet PO Q4H PRN PRN 08/04/14 5-300 mg Tablet] Ibuprofen [Advil] 200 mg PO Q4H PRN PRN 08/04/14 Omeprazole [Prilosec] 20 mg PO DAILY 08/04/14 Sumatriptan Succinate [Imitrex] 50 mg PO PRN PRN 09/03/18 traMADol [Ultram (G)] 50 mg PO Q4H PRN PRN 09/03/18 Smoking Status: Former smoker - *Family History Paternal History Items: - - Denies history of MS in first-degree relative. Review of Systems Constitutional: Reports: Chills, Fever, Malaise. Denies: Weight Change HEENT: Reports: Head Aches. Denies: Sinus Congestion, Sinus Drainage Cardiovascular: Denies: Chest Pain, Palpitations Respiratory: Reports: Cough, Shortness of breath upon exertion. Denies: Hemoptysis, Pleuritic Pain, Shortness of breath at rest, Sputum production Gastrointestinal: Reports: Nausea, Vomiting - One-time vomiting, - - Dry heaving. Denies: Abdominal Pain Genitourinary: Denies: Dysuria Musculoskeletal: Denies: Joint Pain, Joint Tenderness Skin: Denies: Rash, Wounds Neurological: Reports: Balance problems, Focal weakness, Incoordination. Denies: Numbness, Tingling Psychiatric: Denies: Anxiety, Depression, Homicidal Ideations, Suicidal Ideations Hematologic/ Lymphatic: Denies: Easy Bruising, Easy Bleeding VTE Information - Inpt Only VTE Present on Admission: No VTE Mechan Device Prophylaxis: None VTE Pharm Prophylaxis ordered?: Yes Patient Problems: Active and Suspected Problems Influenza A bronchitis (Acute) - Physical Exam General: Alert, Oriented x3, Cooperative HEENT: Atraumatic, PERRLA, EOMI, Normocephalic Oral: Dry Mucosa Neck: Supple, No JVD, Negative Carotid Bruits Lungs: Clear to auscultation, No rhonchi, No wheeze, No rales, Diminished - Air entry is diminished in bilateral lung bases Cardiovascular: Regular rate, Regular Rhythm, Normal S1, Normal S2, No murmurs Abdomen: Bowel Sounds Present, Soft, Non Tender, Non-Distended Extremities: No edema, Capillary Refill Less than 3 Seconds Skin: No breakdown, Rash Present - Mild erythema of both foot mainly right foot. Small area of redness and left lower leg. Musculoskeletal: No Tenderness to Palpation of Joints or Extremities, Arthritic Changes, - - Bilateral knee valgus deformity Lymphatic: No Cervical, Supraclavicular, or Inguinal Adenopathy Neurological: Cranial nerves II-XII grossly intact, - - Weakness of both lower extremities. Psych/Mental Status: Normal Affect, Appropriate Vital Signs Temp Pulse Resp BP Pulse Ox 98.3 F 69 16 111/62 98 09/03/18 12:15 09/03/18 12:15 09/03/18 12:15 09/03/18 12:15 09/03/18 12:15 Oxygen Flow Rate (L/min) 2 Oxygen Delivery Method Nasal Cannula Weight: 230 lb Body Mass Index (BMI) 38.2 Laboratory Tests Past 24 Hrs 09/03/18 09/03/18 09:22 09:22 WBC 3.1 L RBC 3.84 L Hgb 11.9 L Hct 36.0 L MCV 93.8 MCH 31.0 MCHC 33.1 RDW 13.9 RDW Differential 47.8 H Plt Count 80 L MPV 11.6 Immature Gran % (Auto) 0.300 Neut % (Auto) 85.0 H Lymph % (Auto) 9.6 L [place] % (Auto) 5.1 Eos % (Auto) 0.0 Baso % (Auto) 0.0 Absolute Neuts (auto) 2.7 Absolute Lymphs (auto) 0.30 L Total Counted Not Reportable Platelet Estimate MOD DEC Hypochromasia RARE Sodium 138 Potassium 3.0 L Chloride 105 Carbon Dioxide 27.0 Anion Gap 6 BUN 10 Creatinine 0.77 Estim Creat Clear Calc 69.04 Est GFR (MDRD) Af Amer 98 Est GFR (MDRD) Non-Af 81 BUN/Creatinine Ratio 13.0 Glucose 96 Calcium 7.7 L Total Bilirubin 0.40 AST 64 H ALT 50 Alkaline Phosphatase 105 Total Protein 6.5 Albumin 3.3 Globulin 3.2 Albumin/Globulin Ratio 1.0 Assessment/Plan All Active Problems Influenza A bronchitis (Acute) The patient is a 62 year old F with history of MS with recent diagnosis of influenza A by PCP on 08/31 came to ED with generalized weakness as she was not able to stand up but infact had to crawk. She complain of bilateral lower extremity weakness. Normally she is on wheeled walker. She also has fever, chills, dry cough and was mild short of breath at home since 08/31, . She did not refill her prescription of Tamiflu yet. She was also told that she has a left leg cellulitis and was put on doxycycline by PCP. In ED, she had temperature 100.4 ?F in ED but not associated with tachycardia. Pulse ox 96% on room air. No tachypnea or hypoxia. [] Chest x-ray shows streaky opacities within mid and lower lungs most probably atelectasis but possibility of evolving pneumonia in view of influenza A. Basic blood work shows pancytopenia, WBC 3.1 thousand, platelet count 80,000 and H&H 11.9/36.0. Mild hypokalemia 3.0. 1. Influenza A bronchitis with bilateral lower lobes atelectasis: Patient is being admitted on regular MedSurg floor. Started on Tamiflu. Pneumonia work-up ordered including urinary antigens for Legionella and Streptococcus, respiratory panel. Patient has pancytopenia mostly secondary to viral infection. Chest physiotherapy, incentive spirometry. Supportive management for cough. Repeat chest x-ray PA and lateral tomorrow morning. LFT shows AST 64. I have low suspicion for suspicion of possible community-acquired pneumonia; and if any viral pneumonia. Follow-up clinically. 2. Bilateral feet erythema and left lower leg erythema: Patient does not have pain, tenderness but had swelling. Order bilateral lower leg venous Doppler to rule out DVT. Continue doxycycline until cellulitis is ruled out. 3. MS exacerbation possible secondary to with bilateral lower leg weakness influenza A infection/paraparesis: On IV Solu-Medrol. Patient is on Ocrevus IV every 6 monthly from her neurologist, MS specialist Dr. Chirinos. She takes monthly vitamin B12, and vitamin D3. Patient is not on Tecfidera. 4. Mild hypokalemia: Potassium is being replaced. Magnesium is pending Other chronic comorbidities include migraine headache, hypertension, peripheral neuropathy: Home medication reconciliation done. Patient is on tramadol, Advil, atenolol and amitriptyline at home. Hold baclofen as she is having weakness. DVT prophylaxis: Bilateral SCDs. Pharmacological prophylaxis secondary review of thrombocytopenia, 80,000. Clinical Impression(s) from Imaging Studies Chest X-Ray 09/03/18 09:37 IMPRESSION: Streaky opacities within the mid and lower lungs likely secondary to underlying atelectasis and possible evolving pneumonia. Code Visit OBSV E&M: 29166 Initial observation care L3
[2018-09-03 14:07] LABS: Magnesium 1.7 mg/dL (1.6-2.6)
[2018-09-03] MEDS: Doxycycline 100 MG CAPSULE PO ×2 (15:55→21:11)
[2018-09-03] MEDS: Pantoprazole Sodium 20 MG Tablet PO (15:55)
[2018-09-03] MEDS: 0.9% NaCl Peripheral Flush Adult/Peds IV (16:01)
[2018-09-03] MEDS: Ibuprofen 200 MG Tablet PO (16:48)
[2018-09-03] MEDS: Amitriptyline 100 MG Tablet PO (21:11)
[2018-09-03] MEDS: guaiFENesin 1,200 MG Tablet 1200 MG PO (21:11)
[2018-09-03] MEDS: Atenolol 50 MG Tablet 75 MG PO (21:18)
[2018-09-04 01:56] VITALS: BP 138/70; PULSE 66; RESP 14; TEMP 36.8; O2SAT 94
--- NOTE | 2018-09-04 05:30 | RAD_ITS ---
STUDY: X-RAY CHEST REASON FOR EXAM: Female, 62 years old. Our lateral CAPD. TECHNIQUE: PA and lateral views of the chest. COMPARISON: September 03, 2018. FINDINGS: 1 given differences in technique, there are felt to be stable streaky opacities bilaterally radiating from both kulwinder to adjacent pleural surfaces. No definite alveolar opacification. No pneumothorax. No pleural effusion. Stable unremarkable appearing cardiomediastinal silhouette with calcified vascular plaque. No acute osseous abnormality. There is no demonstrated abnormality of the visualized soft tissue structures of the upper abdomen. RAD/Chest PA and Lateral IMPRESSION: Stable exam. No pneumothorax. No evident tubes or lines. No pleural effusion. No pneumothorax. Atherosclerotic peripheral vascular disease. Streaky opacities may represent chronic atelectasis versus fibrosis versus possible evolving small foci of pneumonitis. Recommend continued follow-up. No pleural effusion. Electronically Signed: Modesto Verdugo MD at 8:23 EDT , Service support ,
[2018-09-04 05:46] LABS: AST(SGOT) 67 U/L (15-37); Alanine Aminotransfer ALT/SGPT 53 U/L (13-56); Alkaline Phosphatase 104 U/L (45-117); Anion Gap 6 (5-15); BUN 11 mg/dL (7-18); BUN/Creat Ratio 16.9 RATIO (10-20); Bilirubin, Direct 0.09 mg/dL (0.00-0.30); Calcium,Total 8.3 mg/dL (8.5-10.1); Chloride 113 mmol/L (98-107); Creatinine, Serum 0.65 mg/dL (0.55-1.02); EST Glomerular Filtration Rate 98 mL/min (>60); Est Glom Filt Rate - Afr Amer 119 mL/min (>60); Estimated Creatinine Clearance 81.79 ml/min; Globulin 3.3 g/dL (2.2-4.2); Glucose 122 mg/dL (74-106); Potassium 4.3 mmol/L (3.5-5.1); Protein, Total 6.3 g/dL (6.4-8.2); Sodium Level 141 mmol/L (136-145); Thyroid Stim Hormone (TSH) 0.14 uIU/mL (0.358-3.74)
[2018-09-04] MEDS: 0.9% NaCl Peripheral Flush Adult/Peds IV (06:05)
[2018-09-04 06:45] VITALS: O2SAT 95
[2018-09-04 07:12] LABS: Absolute Lymphocyte Count 0.14 X10^3/ul (0.83-4.51); Absolute Neutrophil Count 1.7 X10^3/uL (2.0-7.7); Hematocrit 36.2 % (37-47); Lymphocyte # 0.14 X10^3/ul (4.0); Lymphocyte % 7.3 % (19-41); Mean Corp Hgb Conc 33.1 g/gl (32-36); Mean Corpuscular Hgb 30.9 pg (27.0-32.0); Mean Corpuscular Volume 93.3 fL (81-99); Mean Platelet Vol. 11.7 fl (6.2-12.0); Monocyte# 0.11 X10^3/uL; Monocyte% 5.8 % (0-10); Neutrophil # 1.66 X10^3/uL (2.7-7.7); Neutrophil % 86.9 % (47-70); Platelet Count 68 K/mm3 (150-450); RBC Distribution Width SD 47.3 fl (35.1-43.9); Red Blood Count 3.88 M/mm3 (4.2-5.4); White Blood Count 1.9 K/mm3 (4.4-11.0)
[2018-09-04 07:16] LABS: Differential Indicated SCAN CRITERIA MET; POSITIVE COUNT NO; POSITIVE DIFFERENTIAL YES; POSITIVE MORPHOLOGY NO
[2018-09-04 07:30] VITALS: BP 143/76; PULSE 69; RESP 16; TEMP 37.2; O2SAT 97
--- NOTE | 2018-09-04 08:50 | PCM.PN.HOSP ---
Patient Problems: Active and Suspected Problems Influenza A bronchitis (Acute) Subjective: The patient is still has cough. Patient has improvement in bilateral lower extremity strength and can move her toes and legs sideways. Her strength is on baseline. Vitals/I&O's: Vital Signs Temp Pulse Resp BP Pulse Ox 99.0 F 69 16 143/76 H 97 09/04/18 07:30 09/04/18 07:30 09/04/18 07:30 09/04/18 07:30 09/04/18 07:30 Oxygen Flow Rate (L/min) 2 Oxygen Delivery Method Room Air Weight: 235 lb 7.259 oz Body Mass Index (BMI) 39.2 Intake and Output for Last 24 Hours 09/02/18 09/03/18 09/04/18 23:59 23:59 23:59 Intake Total 396 / 396 1163 / 1163 Output Total 800 / 800 Balance 396 / 396 363 / 363 General: Alert, Oriented x3, Cooperative HEENT: Atraumatic, PERRLA, EOMI, Normocephalic Neck: Supple, No JVD, Negative Carotid Bruits Lungs: Clear to auscultation, No rhonchi, No wheeze, No rales, Diminished Cardiovascular: Regular rate, Regular Rhythm, Normal S1, Normal S2, No murmurs Abdomen: Bowel Sounds Present, Soft, Non Tender, Non-Distended Extremities: No edema, Capillary Refill Less than 3 Seconds Skin: No rashes, No breakdown Musculoskeletal: No Tenderness to Palpation of Joints or Extremities, Arthritic Changes, Muscle Wasting Lymphatic: No Cervical, Supraclavicular, or Inguinal Adenopathy Neurological: Cranial nerves II-XII grossly intact, Neuro grossly intact, - - DTR 1/4. Muscle strength 3/5 at major joints and lower extremities. Psych/Mental Status: Normal Affect, Appropriate Microbiology Past 72 Hours 09/03/18 19:30 Urine, Random Streptococcus pneumoniae Antigen (M - Final 09/03/18 19:30 Urine, Random Legionella Antigen - Final Laboratory Results 09/03/18 09:22: WBC 3.1 L, RBC 3.84 L, Hgb 11.9 L, Hct 36.0 L, MCV 93.8, MCH 31.0, MCHC 33.1, RDW 13.9, RDW Differential 47.8 H, Plt Count 80 L, MPV 11.6, Immature Gran % (Auto) 0.300, Neut % (Auto) 85.0 H, Lymph % (Auto) 9.6 L, [place] % (Auto) 5.1, Eos % (Auto) 0.0, Baso % (Auto) 0.0, Absolute Neuts (auto) 2.7, Absolute Lymphs (auto) 0.30 L, Total Counted Not Reportable, Platelet Estimate MOD DEC, Hypochromasia RARE 09/03/18 09:22: Sodium 138, Potassium 3.0 L, Chloride 105, Carbon Dioxide 27.0, Anion Gap 6, BUN 10, Creatinine 0.77, Estim Creat Clear Calc 69.04, Est GFR (MDRD) Af Amer 98, Est GFR (MDRD) Non-Af 81, BUN/Creatinine Ratio 13.0, Glucose 96, Calcium 7.7 L, Total Bilirubin 0.40, AST 64 H, ALT 50, Alkaline Phosphatase 105, Total Protein 6.5, Albumin 3.3, Globulin 3.2, Albumin/Globulin Ratio 1.0 09/03/18 09:22: Magnesium 1.7 09/03/18 09:22: C-React Prot Ext Range 25.50 H 09/04/18 05:04: WBC 1.9 L, RBC 3.88 L, Hgb 12.0, Hct 36.2 L, MCV 93.3, MCH 30.9, MCHC 33.1, RDW 14.0, RDW Differential 47.3 H, Plt Count 68 L, MPV 11.7, Immature Gran % (Auto) 0.000, Neut % (Auto) 86.9 H, Lymph % (Auto) 7.3 L, [place] % (Auto) 5.8, Eos % (Auto) 0.0, Baso % (Auto) 0.0, Absolute Neuts (auto) 1.7 L, Absolute Lymphs (auto) 0.14 L, Total Counted Not Reportable, Differential Comment 09/04/18 05:04: Sodium 141, Potassium 4.3, Chloride 113 H, Carbon Dioxide 22.0, Anion Gap 6, BUN 11, Creatinine 0.65, Estim Creat Clear Calc 81.79, Est GFR (MDRD) Af Amer 119, Est GFR (MDRD) Non-Af 98, BUN/Creatinine Ratio 16.9, Glucose 122 H, Calcium 8.3 L, Total Bilirubin 0.30, Direct Bilirubin 0.09, AST 67 H, ALT 53, Alkaline Phosphatase 104, Total Protein 6.3 L, Albumin 3.0 L, Globulin 3.3, TSH 0.14 L Current Medications Acetaminophen (Tylenol) 650 mg PO Q6H PRN PRN PRN Reason: Mild Pain (1-3)/Temp > 100.7 F Hydrocodone Bitart/Acetaminophen ([place] 5mg-325mg) 1 tablet PO Q4H PRN PRN PRN Reason: PAIN Albuterol Sulfate (Ventolin Aerosols) 2.5 mg INHALATION Q2H PRN PRN PRN Reason: Shortness of Breath/Wheezing Amantadine HCl (Symmetrel) 100 mg PO BID [facility] Amitriptyline HCl (Elavil) 100 mg PO QHS [facility] Last Admin: 09/03/18 21:11 Dose: 100 mg Atenolol (Tenormin (Beta Trevon)) 50 mg PO DAILY [facility] Atenolol (Tenormin (Beta Trevon)) 75 mg PO QHS [facility] Last Admin: 09/03/18 21:18 Dose: 75 mg Bumetanide (Bumex) 2 mg PO BIDLX [facility] Doxycycline Monohydrate (Doxycycline) 100 mg PO BID [facility] Last Admin: 09/03/18 21:11 Dose: 100 mg Ergocalciferol (Vitamin D) 50,000 unit PO TuTh [facility] Guaifenesin (Mucinex) 1,200 mg PO BID [facility] Last Admin: 09/03/18 21:11 Dose: 1,200 mg Potassium Chloride/Sodium Chloride () 1,000 mls @ 100 mls/hr IV .Q10H [facility] Last Admin: 09/04/18 01:53 Dose: 100 mls/hr Ibuprofen (Motrin) 200 mg PO Q4H PRN PRN PRN Reason: PAIN Last Admin: 09/03/18 16:48 Dose: 200 mg Methylprednisolone (Solu-Medrol) 40 mg IV Q12 [facility] Stop: 09/04/18 22:01 Last Admin: 09/03/18 21:12 Dose: 40 mg Oseltamivir Phosphate (Tamiflu) 75 mg PO BID [facility] Stop: 09/07/18 22:01 Last Admin: 09/03/18 21:12 Dose: 75 mg Pantoprazole Sodium (Protonix) 20 mg PO BID [facility] Polyethylene Glycol (Miralax) 17 gm PO DAILY [facility] Potassium Chloride (K-Dur) 40 meq PO DAILYCM [facility] Last Admin: 09/04/18 07:40 Dose: 40 meq Prednisone () 40 mg PO DAILY@0800 [facility] Prochlorperazine Edisylate (Compazine Iv) 5 mg IV Q4H PRN PRN PRN Reason: Breakthrough nausea/vomiting Rizatriptan Benzoate (Maxalt) 10 mg PO PRN PRN PRN Reason: MIGRAINE SYMPTOMS Sodium Chloride () 5 - 15 ml IV UD PRN PRN Reason: SALINE FLUSH Last Admin: 09/04/18 06:05 Dose: 10 ml Throat Lozenges (Cepacol Sore Throat Lozenge) 1 lozenge MUCOUS MEM Q2H PRN PRN PRN Reason: Sore throat or cough Tramadol HCl (Ultram) 50 mg PO Q4H PRN PRN PRN Reason: PAIN Medical Necessity - Tobacco Use Smoking Status: Former smoker Tobacco Use: Cigarettes Assessment/Plan All Active Problems Influenza A bronchitis (Acute) The patient is a 62 year old F with history of MS with recent diagnosis of influenza A by PCP on 08/31 came to ED with generalized weakness as she was not able to stand up but infact had to crawk. She complain of bilateral lower extremity weakness. Normally she is on wheeled walker. She also has fever, chills, dry cough and was mild short of breath at home since 08/31, . She did not refill her prescription of Tamiflu yet. She was also told that she has a left leg cellulitis and was put on doxycycline by PCP. In ED, she had temperature 100.4 ?F in ED but not associated with tachycardia. Pulse ox 96% on room air. No tachypnea or hypoxia. [] Chest x-ray shows streaky opacities within mid and lower lungs most probably atelectasis but possibility of evolving pneumonia in view of influenza A. Basic blood work shows pancytopenia, WBC 3.1 thousand, platelet count 80,000 and H&H 11.9/36.0. Mild hypokalemia 3.0. 1. Influenza A bronchitis with bilateral lower lobes atelectasis: Patient is being admitted on regular MedSurg floor. Started on Tamiflu. urinary antigens for Legionella and Streptococcus are negative. Respiratory panel pending. Patient did not had fever chills or tachycardia. Patient has pancytopenia mostly secondary to viral infection. Chest physiotherapy, incentive spirometry. Supportive management for cough. Repeat chest x-ray PA and lateral tomorrow morning. LFT shows AST 64. I have low suspicion for suspicion of possible community-acquired pneumonia; and if any viral pneumonia. Repeat chest x-ray shows a streaky opacities from hilum to pleural surfaces but no alveolar opacity therefore suggesting atelectasis or thin septal fibrosis. 2. Bilateral feet erythema and left lower leg erythema: Patient does not have pain, tenderness but had swelling. bilateral lower leg venous Doppler to rule out DVT. Continue doxycycline until cellulitis is ruled out. 3. MS exacerbation possible secondary to with bilateral lower leg weakness influenza A infection/paraparesis: On IV Solu-Medrol. Patient is on Ocrevus IV every 6 monthly from her neurologist, MS specialist Dr. Chirinos. She takes monthly vitamin B12, and vitamin D3. Patient is not on Tecfidera. 4. Mild hypokalemia: Potassium is corrected, 4.3. Magnesium 1.7. Other chronic comorbidities include migraine headache, hypertension, peripheral neuropathy: Home medication reconciliation done. Patient is on tramadol, Advil, atenolol and amitriptyline at home. Hold baclofen as she is having weakness. Neutropenia and thrombocytopenia mostly secondary to influenza A viral infection: LFT shows mild increase in AST. CRP elevated. Follow CBC DVT prophylaxis: Bilateral SCDs. Pharmacological prophylaxis secondary to thrombocytopenia which is further got worse. Clinical Impression(s) from Imaging Studies Chest X-Ray 09/03/18 09:37 IMPRESSION: Streaky opacities within the mid and lower lungs likely secondary to underlying atelectasis and possible evolving pneumonia. Chest X-Ray 09/04/18 05:30 IMPRESSION: Stable exam. No pneumothorax. No evident tubes or lines. No pleural effusion. No pneumothorax. Atherosclerotic peripheral vascular disease. Streaky opacities may represent chronic atelectasis versus fibrosis versus possible evolving small foci of pneumonitis. Recommend continued follow-up. No pleural effusion. Active Medications Acetaminophen (Tylenol) 650 mg PO Q6H PRN PRN PRN Reason: Mild Pain (1-3)/Temp > 100.7 F Hydrocodone Bitart/Acetaminophen ([place] 5mg-325mg) 1 tablet PO Q4H PRN PRN PRN Reason: PAIN Albuterol Sulfate (Ventolin Aerosols) 2.5 mg INHALATION Q2H PRN PRN PRN Reason: Shortness of Breath/Wheezing Amantadine HCl (Symmetrel) 100 mg PO BID [facility] Amitriptyline HCl (Elavil) 100 mg PO QHS [facility] Last Admin: 09/03/18 21:11 Dose: 100 mg Atenolol (Tenormin (Beta Trevon)) 50 mg PO DAILY [facility] Atenolol (Tenormin (Beta Trevon)) 75 mg PO QHS [facility] Last Admin: 09/03/18 21:18 Dose: 75 mg Bumetanide (Bumex) 2 mg PO BIDLX [facility] Doxycycline Monohydrate (Doxycycline) 100 mg PO BID [facility] Last Admin: 09/03/18 21:11 Dose: 100 mg Ergocalciferol (Vitamin D) 50,000 unit PO TuTh [facility] Guaifenesin (Mucinex) 1,200 mg PO BID [facility] Last Admin: 09/03/18 21:11 Dose: 1,200 mg Potassium Chloride/Sodium Chloride () 1,000 mls @ 100 mls/hr IV .Q10H [facility] Last Admin: 09/04/18 01:53 Dose: 100 mls/hr Ibuprofen (Motrin) 200 mg PO Q4H PRN PRN PRN Reason: PAIN Last Admin: 09/03/18 16:48 Dose: 200 mg Methylprednisolone (Solu-Medrol) 40 mg IV Q12 [facility] Stop: 09/04/18 22:01 Last Admin: 09/03/18 21:12 Dose: 40 mg Oseltamivir Phosphate (Tamiflu) 75 mg PO BID [facility] Stop: 09/07/18 22:01 Last Admin: 09/03/18 21:12 Dose: 75 mg Pantoprazole Sodium (Protonix) 20 mg PO BID [facility] Polyethylene Glycol (Miralax) 17 gm PO DAILY [facility] Potassium [facility] ([facility]Dur[facility] Last Admin: 09/04/18 07:40 Dose: 40 meq Prednisone () 40 mg PO DAILY@0800 [facility] Prochlorperazine Edisylate (Compazine Iv) 5 mg IV Q4H PRN PRN PRN Reason: Breakthrough nausea/vomiting Rizatriptan Benzoate (Maxalt) 10 mg PO PRN PRN PRN Reason: MIGRAINE SYMPTOMS Sodium Chloride () 5 - 15 ml IV UD PRN PRN Reason: SALINE FLUSH Last Admin: 09/04/18 06:05 Dose: 10 ml Throat Lozenges (Cepacol Sore Throat Lozenge) 1 lozenge MUCOUS MEM Q2H PRN PRN PRN Reason: Sore throat or cough Tramadol HCl (Ultram) 50 mg PO Q4H PRN PRN PRN Reason: PAIN Code Visit Inpatient E&M: 72489 Subs Hosp L2
--- NOTE | 2018-09-04 08:58 | PN_ITS ---
Patient Problems: Active and Suspected Problems Influenza A bronchitis (Acute) Subjective: The patient is still has cough. Patient has improvement in bilateral lower extremity strength and can move her toes and legs sideways. Her strength is on baseline. Vitals/I&O's: Vital Signs Temp Pulse Resp BP Pulse Ox 99.0 F 69 16 143/76 H 97 09/04/18 07:30 09/04/18 07:30 09/04/18 07:30 09/04/18 07:30 09/04/18 07:30 Oxygen Flow Rate (L/min) 2 Oxygen Delivery Method Room Air Weight: 235 lb 7.259 oz Body Mass Index (BMI) 39.2 Intake and Output for Last 24 Hours 09/02/18 09/03/18 09/04/18 23:59 23:59 23:59 Intake Total 396 / 396 1163 / 1163 Output Total 800 / 800 Balance 396 / 396 363 / 363 General: Alert, Oriented x3, Cooperative HEENT: Atraumatic, PERRLA, EOMI, Normocephalic Neck: Supple, No JVD, Negative Carotid Bruits Lungs: Clear to auscultation, No rhonchi, No wheeze, No rales, Diminished Cardiovascular: Regular rate, Regular Rhythm, Normal S1, Normal S2, No murmurs Abdomen: Bowel Sounds Present, Soft, Non Tender, Non-Distended Extremities: No edema, Capillary Refill Less than 3 Seconds Skin: No rashes, No breakdown Musculoskeletal: No Tenderness to Palpation of Joints or Extremities, Arthritic Changes, Muscle Wasting Lymphatic: No Cervical, Supraclavicular, or Inguinal Adenopathy Neurological: Cranial nerves II-XII grossly intact, Neuro grossly intact, - - DTR 1/4. Muscle strength 3/5 at major joints and lower extremities. Psych/Mental Status: Normal Affect, Appropriate Microbiology Past 72 Hours 09/03/18 19:30 Urine, Random Streptococcus pneumoniae Antigen (M - Final 09/03/18 19:30 Urine, Random Legionella Antigen - Final Laboratory Results 09/03/18 09:22: WBC 3.1 L, RBC 3.84 L, Hgb 11.9 L, Hct 36.0 L, MCV 93.8, MCH 31.0, MCHC 33.1, RDW 13.9, RDW Differential 47.8 H, Plt Count 80 L, MPV 11.6, Immature Gran % (Auto) 0.300, Neut % (Auto) 85.0 H, Lymph % (Auto) 9.6 L, [place] % (Auto) 5.1, Eos % (Auto) 0.0, Baso % (Auto) 0.0, Absolute Neuts (auto) 2.7, Absolute Lymphs (auto) 0.30 L, Total Counted Not Reportable, Platelet Estimate MOD DEC, Hypochromasia RARE 09/03/18 09:22: Sodium 138, Potassium 3.0 L, Chloride 105, Carbon Dioxide 27.0, Anion Gap 6, BUN 10, Creatinine 0.77, Estim Creat Clear Calc 69.04, Est GFR (MDRD) Af Amer 98, Est GFR (MDRD) Non-Af 81, BUN/Creatinine Ratio 13.0, Glucose 96, Calcium 7.7 L, Total Bilirubin 0.40, AST 64 H, ALT 50, Alkaline Phosphatase 105, Total Protein 6.5, Albumin 3.3, Globulin 3.2, Albumin/Globulin Ratio 1.0 09/03/18 09:22: Magnesium 1.7 09/03/18 09:22: C-React Prot Ext Range 25.50 H 09/04/18 05:04: WBC 1.9 L, RBC 3.88 L, Hgb 12.0, Hct 36.2 L, MCV 93.3, MCH 30.9, MCHC 33.1, RDW 14.0, RDW Differential 47.3 H, Plt Count 68 L, MPV 11.7, Immature Gran % (Auto) 0.000, Neut % (Auto) 86.9 H, Lymph % (Auto) 7.3 L, [place] % (Auto) 5.8, Eos % (Auto) 0.0, Baso % (Auto) 0.0, Absolute Neuts (auto) 1.7 L, Absolute Lymphs (auto) 0.14 L, Total Counted Not Reportable, Differential Comment 09/04/18 05:04: Sodium 141, Potassium 4.3, Chloride 113 H, Carbon Dioxide 22.0, Anion Gap 6, BUN 11, Creatinine 0.65, Estim Creat Clear Calc 81.79, Est GFR (MDRD) Af Amer 119, Est GFR (MDRD) Non-Af 98, BUN/Creatinine Ratio 16.9, Glucose 122 H, Calcium 8.3 L, Total Bilirubin 0.30, Direct Bilirubin 0.09, AST 67 H, ALT 53, Alkaline Phosphatase 104, Total Protein 6.3 L, Albumin 3.0 L, Globulin 3.3, TSH 0.14 L Current Medications Acetaminophen (Tylenol) 650 mg PO Q6H PRN PRN PRN Reason: Mild Pain (1-3)/Temp > 100.7 F Hydrocodone Bitart/Acetaminophen ([place] 5mg-325mg) 1 tablet PO Q4H PRN PRN PRN Reason: PAIN Albuterol Sulfate (Ventolin Aerosols) 2.5 mg INHALATION Q2H PRN PRN PRN Reason: Shortness of Breath/Wheezing Amantadine HCl (Symmetrel) 100 mg PO BID [facility] Amitriptyline HCl (Elavil) 100 mg PO QHS [facility] Last Admin: 09/03/18 21:11 Dose: 100 mg Atenolol (Tenormin (Beta Trevon)) 50 mg PO DAILY [facility] Atenolol (Tenormin (Beta Trevon)) 75 mg PO QHS [facility] Last Admin: 09/03/18 21:18 Dose: 75 mg Bumetanide (Bumex) 2 mg PO BIDLX [facility] Doxycycline Monohydrate (Doxycycline) 100 mg PO BID [facility] Last Admin: 09/03/18 21:11 Dose: 100 mg Ergocalciferol (Vitamin D) 50,000 unit PO TuTh [facility] Guaifenesin (Mucinex) 1,200 mg PO BID [facility] Last Admin: 09/03/18 21:11 Dose: 1,200 mg Potassium Chloride/Sodium Chloride () 1,000 mls @ 100 mls/hr IV .Q10H [facility] Last Admin: 09/04/18 01:53 Dose: 100 mls/hr Ibuprofen (Motrin) 200 mg PO Q4H PRN PRN PRN Reason: PAIN Last Admin: 09/03/18 16:48 Dose: 200 mg Methylprednisolone (Solu-Medrol) 40 mg IV Q12 [facility] Stop: 09/04/18 22:01 Last Admin: 09/03/18 21:12 Dose: 40 mg Oseltamivir Phosphate (Tamiflu) 75 mg PO BID [facility] Stop: 09/07/18 22:01 Last Admin: 09/03/18 21:12 Dose: 75 mg Pantoprazole Sodium (Protonix) 20 mg PO BID [facility] Polyethylene Glycol (Miralax) 17 gm PO DAILY [facility] Potassium Chloride (K-Dur) 40 meq PO DAILYCM [facility] Last Admin: 09/04/18 07:40 Dose: 40 meq Prednisone () 40 mg PO DAILY@0800 [facility] Prochlorperazine Edisylate (Compazine Iv) 5 mg IV Q4H PRN PRN PRN Reason: Breakthrough nausea/vomiting Rizatriptan Benzoate (Maxalt) 10 mg PO PRN PRN PRN Reason: MIGRAINE SYMPTOMS Sodium Chloride () 5 - 15 ml IV UD PRN PRN Reason: SALINE FLUSH Last Admin: 09/04/18 06:05 Dose: 10 ml Throat Lozenges (Cepacol Sore Throat Lozenge) 1 lozenge MUCOUS MEM Q2H PRN PRN PRN Reason: Sore throat or cough Tramadol HCl (Ultram) 50 mg PO Q4H PRN PRN PRN Reason: PAIN Medical Necessity - Tobacco Use Smoking Status: Former smoker Tobacco Use: Cigarettes Assessment/Plan All Active Problems Influenza A bronchitis (Acute) The patient is a 62 year old F with history of MS with recent diagnosis of influenza A by PCP on 08/31 came to ED with generalized weakness as she was not able to stand up but infact had to crawk. She complain of bilateral lower extremity weakness. Normally she is on wheeled walker. She also has fever, chills, dry cough and was mild short of breath at home since 08/31, . She did not refill her prescription of Tamiflu yet. She was also told that she has a left leg cellulitis and was put on doxycycline by PCP. In ED, she had temperature 100.4 ?F in ED but not associated with tachycardia. Pulse ox 96% on room air. No tachypnea or hypoxia. [] Chest x-ray shows streaky opacities within mid and lower lungs most probably atelectasis but possibility of evolving pneumonia in view of influenza A. Basic blood work shows pancytopenia, WBC 3.1 thousand, platelet count 80,000 and H&H 11.9/36.0. Mild hypokalemia 3.0. 1. Influenza A bronchitis with bilateral lower lobes atelectasis: Patient is being admitted on regular MedSurg floor. Started on Tamiflu. urinary antigens for Legionella and Streptococcus are negative. Respiratory panel pending. Patient did not had fever chills or tachycardia. Patient has pancytopenia mostly secondary to viral infection. Chest physiotherapy, incentive spirometry. Supportive management for cough. Repeat chest x-ray PA and lateral tomorrow morning. LFT shows AST 64. I have low suspicion for suspicion of possible community-acquired pneumonia; and if any viral pneumonia. Repeat chest x-ray shows a streaky opacities from hilum to pleural surfaces but no alveolar opacity therefore suggesting atelectasis or thin septal fibrosis. 2. Bilateral feet erythema and left lower leg erythema: Patient does not have pain, tenderness but had swelling. bilateral lower leg venous Doppler to rule out DVT. Continue doxycycline until cellulitis is ruled out. 3. MS exacerbation possible secondary to with bilateral lower leg weakness influenza A infection/paraparesis: On IV Solu-Medrol. Patient is on Ocrevus IV every 6 monthly from her neurologist, MS specialist Dr. Chirinos. She takes monthly vitamin B12, and vitamin D3. Patient is not on Tecfidera. 4. Mild hypokalemia: Potassium is corrected, 4.3. Magnesium 1.7. Other chronic comorbidities include migraine headache, hypertension, peripheral neuropathy: Home medication reconciliation done. Patient is on tramadol, Advil, atenolol and amitriptyline at home. Hold baclofen as she is having weakness. Neutropenia and thrombocytopenia mostly secondary to influenza A viral infecti on: LFT shows mild increase in AST. CRP elevated. Follow CBC DVT prophylaxis: Bilateral SCDs. Pharmacological prophylaxis secondary to thrombocytopenia which is further got worse. Clinical Impression(s) from Imaging Studies Chest X-Ray 09/03/18 09:37 IMPRESSION: Streaky opacities within the mid and lower lungs likely secondary to underlying atelectasis and possible evolving pneumonia. Chest X-Ray 09/04/18 05:30 IMPRESSION: Stable exam. No pneumothorax. No evident tubes or lines. No pleural effusion. No pneumothorax. Atherosclerotic peripheral vascular disease. Streaky opacities may represent chronic atelectasis versus fibrosis versus possible evolving small foci of pneumonitis. Recommend continued follow-up. No pleural effusion. Active Medications Acetaminophen (Tylenol) 650 mg PO Q6H PRN PRN PRN Reason: Mild Pain (1-3)/Temp > 100.7 F Hydrocodone Bitart/Acetaminophen ([place] 5mg-325mg) 1 tablet PO Q4H PRN PRN PRN Reason: PAIN Albuterol Sulfate (Ventolin Aerosols) 2.5 mg INHALATION Q2H PRN PRN PRN Reason: Shortness of Breath/Wheezing Amantadine HCl (Symmetrel) 100 mg PO BID [facility] Amitriptyline HCl (Elavil) 100 mg PO QHS [facility] Last Admin: 09/03/18 21:11 Dose: 100 mg Atenolol (Tenormin (Beta Trevon)) 50 mg PO DAILY [facility] Atenolol (Tenormin (Beta Trevon)) 75 mg PO QHS [facility] Last Admin: 09/03/18 21:18 Dose: 75 mg Bumetanide (Bumex) 2 mg PO BIDLX [facility] Doxycycline Monohydrate (Doxycycline) 100 mg PO BID [facility] Last Admin: 09/03/18 21:11 Dose: 100 mg Ergocalciferol (Vitamin D) 50,000 unit PO TuTh [facility] Guaifenesin (Mucinex) 1,200 mg PO BID [facility] Last Admin: 09/03/18 21:11 Dose: 1,200 mg Potassium Chloride/Sodium Chloride () 1,000 mls @ 100 mls/hr IV .Q10H [facility] Last Admin: 09/04/18 01:53 Dose: 100 mls/hr Ibuprofen (Motrin) 200 mg PO Q4H PRN PRN PRN Reason: PAIN Last Admin: 09/03/18 16:48 Dose: 200 mg Methylprednisolone (Solu-Medrol) 40 mg IV Q12 [facility] Stop: 09/04/18 22:01 Last Admin: 09/03/18 21:12 Dose: 40 mg Oseltamivir Phosphate (Tamiflu) 75 mg PO BID [facility] Stop: 09/07/18 22:01 Last Admin: 09/03/18 21:12 Dose: 75 mg Pantoprazole Sodium (Protonix) 20 mg PO BID [facility] Polyethylene Glycol (Miralax) 17 gm PO DAILY [facility]Dur[facility] Last Admin: 09/04/18 07:40 Dose: 40 meq Prednisone () 40 mg PO DAILY@0800 [facility] Prochlorperazine Edisylate (Compazine Iv) 5 mg IV Q4H PRN PRN PRN Reason: Breakthrough nausea/vomiting Rizatriptan Benzoate (Maxalt) 10 mg PO PRN PRN PRN Reason: MIGRAINE SYMPTOMS Sodium Chloride () 5 - 15 ml IV UD PRN PRN Reason: SALINE FLUSH Last Admin: 09/04/18 06:05 Dose: 10 ml Throat Lozenges (Cepacol Sore Throat Lozenge) 1 lozenge MUCOUS MEM Q2H PRN PRN PRN Reason: Sore throat or cough Tramadol HCl (Ultram) 50 mg PO Q4H PRN PRN PRN Reason: PAIN Code Visit Inpatient E&M: 73565 Subs Hosp L2
--- NOTE | 2018-09-04 09:30 | VDLE_ITS ---
Reason For Study: Swelling RIGHT LEFT GSV is normal. GSV is normal. CFV is compressible, spontaneous, phasic, CFV is compressible, spontaneous, phasic, competent and demonstrates normal competent, and demonstrates normal augmentation. augmentation. FV is compressible, spontaneous, phasic, FV is compressible, spontaneous, phasic, competent and demonstrates normal competent and demonstrates normal augmentation. augmentation. POP V is compressible, spontaneous, phasic, POP V is compressible, spontaneous, phasic, competent and demonstrates normal competent and demonstrates normal augmentation. augmentation. T/P Trunk is compressible. T/P Trunk is compressible. PTV is compressible. PTV is compressible. RT PerV is compressible. LT PerV is compressible. Procedure Exam performed portable in patient room. A preliminary report was called and/or faxed to [facility]. Interpretation Summary Deep veins of the lower extremities are bilaterally patent and compressible segmentally. There is no evidence of deep vein thrombosis on either side. Valvular competence appears intact within the proximal deep venous systems bilaterally. The greater saphenous veins appear bilaterally patent and compressible segmentally. Ordering Physician: Juan Pablo Santos Referring Physician: Walt La Performed By: Krystal Perea RVT
--- NOTE | 2018-09-04 11:34 | CASEMGMT ---
RN CM WARP SPLITTER CM to room to meet with patient for initial transition planning/care coordination assessment. RN LOVE introduced self and role at [facility]. Pt voices understanding and consents to assessment at this time. Pt sitting up in recliner in no distress at this time. Pt is A/O at this time and answers all questions appropriately. Care providers, pharmacy, and demographics verified/updated at this time. PCP: Walt La Specialists: Dr Chirinos--for MS, Dr Juan R Story--orthopedic surgeon Preferred Pharmacy: [facility] Insurance: [employer] [facility] Prescription Benefit: Yes Living Will/HPOA: Has HCPOA, who is her sister, Marisa Vance. Does not have LW. already has info at home re: LW. LNOK: Living Arrangements: Lives in one-story home with her . 2 steps to enter. Independent with personal ADL's. and her share home mgt tasks. Pt manages her own medications and appts. Transportation: drives. States no transportation concerns at this time. DME: has the following DME: Handicap accessible bathroom: shower chair, rails/grab bars, hand-held shower, lift chair, rollator, W/C, golf cart for around her property. is interested in motorizied chair. Advised to talk with her PCP re: this. Denies other needs of DME. HHC/SNF: No history of either. Discussed therapy recommendations. Pt is agreeable to HHC. States no preference. Referral made to Maggie @ [facility]. She was made aware of possible discharge tomorrow. Order for HHC: PT/OT eval and tx placed. Pt wishes to return home and states has no concerns with going home at time of discharge. CM to follow for any further discharge planning/needs. Pt voices no further concerns/needs at this time. Advised pt to ask for CM if any further questions/concerns/needs arise. Voices understanding. PLAN: Home with HHC: PT/OT eval and tx. Karri GILBERT RN, CM
[2018-09-04] MEDS: Doxycycline 100 MG CAPSULE PO ×2 (11:56→21:21)
[2018-09-04] MEDS: Bumetanide 2 MG Tablet PO ×2 (11:56→17:27)
[2018-09-04] MEDS: Amantadine 100 MG Capsule PO ×2 (11:57→21:21)
[2018-09-04] MEDS: guaiFENesin 1,200 MG Tablet 1200 MG PO (11:57)
[2018-09-04] MEDS: Pantoprazole Sodium 20 MG Tablet PO ×2 (11:57→21:21)
[2018-09-04] MEDS: Atenolol 50 MG Tablet PO (11:58)
[2018-09-04] MEDS: Oseltamivir Phosphate 75 MG Capsule PO ×2 (11:58→21:21)
[2018-09-04 13:07] LABS: Pathologist Review Reviewed
[2018-09-04 21:06] VITALS: BP 159/91; PULSE 67; RESP 16; TEMP 36.7; O2SAT 98
[2018-09-04] MEDS: Amitriptyline 100 MG Tablet PO (21:21)
[2018-09-04] MEDS: Atenolol 50 MG Tablet 75 MG PO (21:22)
[2018-09-05 02:02] VITALS: BP 153/82; PULSE 62; RESP 14; TEMP 36.8; O2SAT 97
[2018-09-05 02:04] VITALS: O2SAT 97
[2018-09-05 07:09] VITALS: O2SAT 94
[2018-09-05 07:17] LABS: Absolute Lymphocyte Count 0.27 X10^3/ul (0.83-4.51); Hematocrit 39.5 % (37-47); Hemoglobin 13.1 g/dl (12.0-15.0); Lymphocyte # 0.27 X10^3/ul (4.0); Lymphocyte % 7.6 % (19-41); Mean Corp Hgb Conc 33.2 g/gl (32-36); Mean Corpuscular Hgb 30.9 pg (27.0-32.0); Mean Corpuscular Volume 93.2 fL (81-99); Mean Platelet Vol. 11.9 fl (6.2-12.0); Monocyte# 0.29 X10^3/uL; Monocyte% 8.1 % (0-10); Neutrophil # 3.01 X10^3/uL (2.7-7.7); Neutrophil % 84.3 % (47-70); Platelet Count 85 K/mm3 (150-450); RBC Distribution Width CV 13.7 % (11.6-14.6); RBC Distribution Width SD 46.8 fl (35.1-43.9); Red Blood Count 4.24 M/mm3 (4.2-5.4); White Blood Count 3.6 K/mm3 (4.4-11.0)
[2018-09-05 07:18] LABS: Differential Indicated SCAN CRITERIA MET; POSITIVE COUNT NO; POSITIVE DIFFERENTIAL YES; POSITIVE MORPHOLOGY NO
[2018-09-05] MEDS: predniSONE 20 MG Tablet 40 MG PO (08:18)
[2018-09-05] MEDS: guaiFENesin 1,200 MG Tablet 1200 MG PO (08:54)
[2018-09-05] MEDS: Bumetanide 2 MG Tablet PO (08:54)
[2018-09-05] MEDS: Atenolol 50 MG Tablet PO (08:54)
[2018-09-05] MEDS: Pantoprazole Sodium 20 MG Tablet PO (08:54)
[2018-09-05] MEDS: Oseltamivir Phosphate 75 MG Capsule PO (08:54)
[2018-09-05] MEDS: Doxycycline 100 MG CAPSULE PO (08:54)
[2018-09-05] MEDS: Amantadine 100 MG Capsule PO (08:54)
[2018-09-05 09:32] VITALS: BP 142/86; PULSE 88; RESP 18; TEMP 37; O2SAT 98
--- NOTE | 2018-09-05 09:32 | DCINST_ITS ---
- Discharge Diagnoses Current Active Problems: Current Active and Chronic Problems Influenza A bronchitis (Acute) Exacerbation of multiple sclerosis (Chronic) Migraine headache (Chronic) Peripheral neuropathy (Chronic) You will use the following diet at home:: Regular Discharge Activity: May Not Drive Call your doctor if you observe: Fever of 101 or Higher, Inability to have a bowel movement, Shortness of breath, Dizziness, Fainting spells, Swelling in the ankles, Chest pain Additional Instructions: F/U MS specialist Dr. Chirinos in 2-3 weeks Allergies/Adverse Reactions: Allergies adhesive Allergy (Verified 09/03/18 09:02) Unknown amlodipine besylate [From Lotrel] Allergy (Verified 09/03/18 09:02) Unknown aspirin Allergy (Verified 09/03/18 09:02) Unknown benazepril HCl [From Lotrel] Allergy (Verified 09/03/18 09:02) Unknown codeine Allergy (Verified 09/03/18 09:02) Unknown latex Allergy (Verified 09/03/18 23:02) Rash Penicillins Allergy (Verified 09/03/18 09:02) Unknown Medications to take at Discharge Amitriptyline HCl [Elavil] 100 mg PO QHS 08/04/14 Atenolol [Tenormin (beta marilee)] 50 mg PO DAILY 08/04/14 Atenolol [Tenormin (beta marilee)] 75 mg PO QHS 08/04/14 Baclofen 30 mg PO TID 08/04/14 Cholecalciferol (Vitamin D3) [Optimal D3] 50,000 unit PO TUTH 08/04/14 Cyanocobalamin [Vitamin B12] 100 mcg IM Q30D 08/04/14 Ibuprofen [Motrin] 400 mg PO DAILY 08/04/14 Omeprazole [Prilosec] 20 mg PO BID 08/04/14 Sumatriptan Succinate [Imitrex] 50 mg PO PRN PRN 09/03/18 traMADol [Ultram] 50 mg PO Q4H PRN PRN 09/03/18 Amantadine [Symmetrel] 100 mg PO BID 09/04/18 Bumetanide 2 mg PO BID 09/04/18 Ocrelizumab [Ocrevus] 300 mg IV Q6M 09/04/18 Potassium Chloride [Klor-Con M20] 20 meq PO PRN PRN 09/04/18 Doxycycline 100 mg PO BID #10 capsule 09/05/18 Guaifenesin [Mucinex] 1,200 mg PO BID #14 tablet 09/05/18 Oseltamivir Phosphate [Tamiflu] 75 mg PO BID #5 capsule 09/05/18 The following prescriptions were given: Doxycycline 100 mg PO BID #10 capsule Guaifenesin [Mucinex] 1,200 mg PO BID #14 tablet Oseltamivir Phosphate [Tamiflu] 75 mg PO BID #5 capsule Primary Care Physician: Walt La DO [Primary Care Provider] - Please follow up with your Primary Care Physician in: in 2 week Test Results: Test results from this visit will be discussed in further detail at your follow- up appointment, if applicable.
--- NOTE | 2018-09-05 09:32 | PCM.DC.SUM ---
Discharge Date and Diagnosis Date of Admission: 09/03/18 Date of Discharge: 09/05/18 - Primary Discharge Diagnosis Active and Suspected Problems Influenza A bronchitis (Acute) MS pseudo-exacerbation - Secondary Discharge Diagnosis Chronic Problems Exacerbation of multiple sclerosis (Chronic) Migraine headache (Chronic) Peripheral neuropathy (Chronic) Hospital Course and Treatment Summary of Care Provided: [] The patient is a 62 year old F with history of MS with recent diagnosis of influenza A by PCP on 08/31 came to ED with generalized weakness as she was not able to stand up but infact had to crawk. She complain of bilateral lower extremity weakness. Normally she is on wheeled walker. She also has fever, chills, dry cough and was mild short of breath at home since 08/31, . She did not refill her prescription of Tamiflu yet. She was also told that she has a left leg cellulitis and was put on doxycycline by PCP. In ED, she had temperature 100.4 ?F in ED but not associated with tachycardia. Pulse ox 96% on room air. No tachypnea or hypoxia. [] Chest x-ray shows streaky opacities within mid and lower lungs most probably atelectasis but possibility of evolving pneumonia in view of influenza A. Basic blood work shows pancytopenia, WBC 3.1 thousand, platelet count 80,000 and H&H 11.9/36.0. Mild hypokalemia 3.0. 1. Influenza A, subtype H1 bronchitis with bilateral lower lobes atelectasis: Patient is being admitted on regular [facility] floor. Started on Tamiflu. urinary antigens for Legionella and Streptococcus are negative. Respiratory panel pending. Patient did not had fever chills or tachycardia. Patient has pancytopenia mostly secondary to viral infection. Chest physiotherapy, incentive spirometry. Supportive management for cough. Repeat chest x-ray PA and lateral tomorrow morning. LFT shows AST 64. Repeat chest x-ray shows a streaky opacities from hilum to pleural surfaces but no alveolar opacity therefore suggesting atelectasis or thin septal fibrosis. Patient did not have clinical signs or symptoms of pneumonia although patient although patient is on doxycycline started by PCP for cellulitis 2. Bilateral feet erythema and left lower leg erythema; possible cellulitis: ResolvedPatient does not have pain, tenderness but had swelling. Venous Doppler is negative for DVT. Doxycycline for 5 more days to complete a total of 7 days. 3. MS pseudoexacerbation possible secondary to with bilateral lower leg weakness influenza A infection/paraparesis: On IV Solu-Medrol. Patient is on Ocrevus IV every 6 monthly from her neurologist, MS specialist Dr. Chirinos. She takes monthly vitamin B12, and vitamin D3. Patient is not on Tecfidera. Since patient has 2 dogs admission notes he had improvement in muscle strength on the second day. Steroids discontinued as there is no real indication at this might further exacerbate influenza infection or bronchitis and lower immune function. This was discussed with the patient in detail. 4. Mild hypokalemia: Potassium is corrected, 4.3. Magnesium 1.7. Other chronic comorbidities include migraine headache, hypertension, peripheral neuropathy: Home medication reconciliation done. Patient is on tramadol, Advil, atenolol and amitriptyline at home. Hold baclofen as she is having weakness. Neutropenia and thrombocytopenia mostly secondary to influenza A viral infection: LFT shows mild increase in AST. CRP elevated. Repeat CBC showed improvement in WBC 3.6 thousand, platelet count 85,000. DVT prophylaxis: Bilateral SCDs. Pharmacological prophylaxis secondary to thrombocytopenia discharge medication reconciliation done. Discharge follow-up instructions completed. Discharge process discussed with the patient and her daughter and all questions were answered to patient's satisfaction. Patient was given a prescription for doxycycline, Tamiflu and Mucinex. Medical record was faxed to patient's neurologist Dr. Chirinos Total time spent, exact 35 minutes on discharge meds reconciliation, examination, review of imaging and blood test and discussion with the patient on follow-up instructions. . Microbiology Past 72 Hours 09/04/18 03:20 Sputum, Expectorated/Coughed Gram Stain - Final 09/04/18 03:20 Sputum, Expectorated/Coughed Respiratory Culture - Preliminary Appears to be normal respiratory jania. Further studies to follow. 09/03/18 14:15 Mucosa - Nasopharyngeal Respiratory Panel (PCR) - Final Influenza A (Subtype H1) 09/03/18 19:30 Urine, Random Streptococcus pneumoniae Antigen (M - Final 09/03/18 19:30 Urine, Random Legionella Antigen - Final Laboratory Results 09/05/18 06:45: WBC 3.6 L, RBC 4.24, Hgb 13.1, Hct 39.5, MCV 93.2, MCH 30.9, MCHC 33.2, RDW 13.7, RDW Differential 46.8 H, Plt Count 85 L, MPV 11.9, Immature Gran % (Auto) 0.000, Neut % (Auto) 84.3 H, Lymph % (Auto) 7.6 L, [place] % (Auto) 8.1, Eos % (Auto) 0.0, Baso % (Auto) 0.0, Absolute Neuts (auto) 3.0, Absolute Lymphs (auto) 0.27 L, Total Counted Not Reportable, Differential Comment SCANNED Subjective: Patient is afebrile. Controlled. No tachycardia, tachypnea or hypoxia. No clinical signs and symptoms of pneumonia. Patient is sitting on the chair. Lower extremity strength have improved. - Physical Exam General: Alert, Oriented x3, Cooperative HEENT: Atraumatic, PERRLA, EOMI, Normocephalic Neck: Supple, No JVD, Negative Carotid Bruits Lungs: Clear to auscultation, Normal air movement, No rhonchi, No wheeze, No rales Cardiovascular: Regular rate, Regular Rhythm, Normal S1, Normal S2, No murmurs Abdomen: Bowel Sounds Present, Soft, Non Tender, Non-Distended Extremities: No edema, Capillary Refill Less than 3 Seconds Skin: No rashes, No breakdown Musculoskeletal: No Tenderness to Palpation of Joints or Extremities, Arthritic Changes, Muscle Wasting, - - Bilateral lower extremity weakness, power 3-4/5, on baseline. Neurological: Cranial nerves II-XII grossly intact Psych/Mental Status: Normal Affect, Appropriate Vital Signs Temp Pulse Resp BP Pulse Ox 98.3 F 62 14 153/82 H 94 09/05/18 02:02 09/05/18 02:02 09/05/18 02:02 09/05/18 02:02 09/05/18 07:09 Oxygen Flow Rate (L/min) 2 Oxygen Delivery Method Room Air Weight: 235 lb 7.259 oz Body Mass Index (BMI) 39.2 Intake and Output for Last 24 Hours 09/03/18 09/04/18 09/05/18 23:59 23:59 23:59 Intake Total 396 / 396 1163 / 1163 1326 / 1326 Output Total 1650 / 1650 Balance 396 / 396 -487 / -487 1326 / 1326 Microbiology Past 72 Hours 09/04/18 03:20 Gram Stain - Final Sputum, Expectorated/Coughed Respiratory Culture - Preliminary Appears to be normal respiratory jania. Further studies to follow. 09/03/18 14:15 Respiratory Panel (PCR) - Final Mucosa - Nasopharyngeal Influenza A (Subtype H1) 09/03/18 19:30 Streptococcus pneumoniae Antigen (M - Final Urine, Random 09/03/18 19:30 Legionella Antigen - Final Urine, Random Laboratory Tests Past 24 Hrs 09/04/18 09/05/18 05:04 06:45 WBC 3.6 L RBC 4.24 Hgb 13.1 Hct 39.5 MCV 93.2 MCH 30.9 MCHC 33.2 RDW 13.7 RDW Differential 46.8 H Plt Count 85 L MPV 11.9 Immature Gran % (Auto) 0.000 Neut % (Auto) 84.3 H Lymph % (Auto) 7.6 L [place] % (Auto) 8.1 Eos % (Auto) 0.0 Baso % (Auto) 0.0 Absolute Neuts (auto) 3.0 Absolute Lymphs (auto) 0.27 L Total Counted Pending Diff Path Review Reviewed Discharge Activity: May Not Drive Call your doctor if you observe: Fever of 101 or Higher, Inability to have a bowel movement, Shortness of breath, Dizziness, Fainting spells, Swelling in the ankles, Chest pain Home Medications: Medications to take at Discharge Amitriptyline HCl [Elavil] 100 mg PO QHS 08/04/14 Atenolol [Tenormin (beta marilee)] 50 mg PO DAILY 08/04/14 Atenolol [Tenormin (beta marilee)] 75 mg PO QHS 08/04/14 Baclofen 30 mg PO TID 08/04/14 Cholecalciferol (Vitamin D3) [Optimal D3] 50,000 unit PO TUTH 08/04/14 Cyanocobalamin [Vitamin B12] 100 mcg IM Q30D 08/04/14 Ibuprofen [Motrin] 400 mg PO DAILY 08/04/14 Omeprazole [Prilosec] 20 mg PO BID 08/04/14 Sumatriptan Succinate [Imitrex] 50 mg PO PRN PRN 09/03/18 traMADol [Ultram] 50 mg PO Q4H PRN PRN 09/03/18 Amantadine [Symmetrel] 100 mg PO BID 09/04/18 Bumetanide 2 mg PO BID 09/04/18 Ocrelizumab [Ocrevus] 300 mg IV Q6M 09/04/18 Potassium Chloride [Klor-Con M20] 20 meq PO PRN PRN 09/04/18 Doxycycline 100 mg PO BID #10 capsule 09/05/18 Guaifenesin [Mucinex] 1,200 mg PO BID #14 tablet 09/05/18 Oseltamivir Phosphate [Tamiflu] 75 mg PO BID #5 capsule 09/05/18 Following Prescrptions Were Given to Patient: Doxycycline 100 mg PO BID #10 capsule Guaifenesin [Mucinex] 1,200 mg PO BID #14 tablet Oseltamivir Phosphate [Tamiflu] 75 mg PO BID #5 capsule Primary Care Physician: Walt La DO [Primary Care Provider] - Please follow up with your Primary Care Physician in: in 2 week Medical Necessity - Tobacco Use Smoking Status: Former smoker Tobacco Use: Cigarettes Meaningful Use Info Meaningful Use Diagnoses (Choose all that apply): None applicable Code Visit Inpatient E&M: 96212 Disch Hosp
[2018-09-05 09:36] LABS: Differential Comment SCANNED
== END 2018-09-05 10:15 | disposition home or self-care (01) | DRG 194 ==
LOC: ED 09:36 → MS3 13:19
PROVIDERS: Admitting Provider Internal Medicine; Emergency Provider Emergency Medicine; Family Provider Family Medicine; PCP Family Medicine; Referring Provider Internal Medicine; Visit Provider Internal Medicine
DX: J10.1 Influenza due to other identified influenza virus with other respiratory manifestations (principal); D61.818 Other pancytopenia; E87.6 Hypokalemia; G35 Multiple sclerosis; Z87.891 Personal history of nicotine dependence; G62.9 Polyneuropathy, unspecified; G43.909 Migraine, unspecified, not intractable, without status migrainosus
CPT/HCPCS: 36415; 71046; 80048; 80053; 80076; 83735; 84443; 85025; 86140; 87070; 87077; 87205; 87449; 87633; 93005; 93970; 94667; 94668; 97162; 97166; 97535; 99285; A4216; J2405

== ENCOUNTER → 2018-09-12 | Outpatient (CLI) | payer BC, MEDICARE, SELFPAY ==
[2018-09-03 13:41] VITALS: BMI 39.2
[2018-09-12 15:16] LABS: Absolute Lymphocyte Count 0.11 X10^3/ul (0.83-4.51); Absolute Neutrophil Count 2.5 X10^3/uL (2.0-7.7); Differential Indicated SCAN CRITERIA MET; Hematocrit 38.4 % (37-47); Lymphocyte # 0.11 X10^3/ul (4.0); Lymphocyte % 3.9 % (19-41); Mean Corp Hgb Conc 33.9 g/gl (32-36); Mean Corpuscular Hgb 30.7 pg (27.0-32.0); Mean Corpuscular Volume 90.6 fL (81-99); Mean Platelet Vol. 12.2 fl (6.2-12.0); Monocyte# 0.21 X10^3/uL; Monocyte% 7.5 % (0-10); Neutrophil # 2.46 X10^3/uL (2.7-7.7); Neutrophil % 87.9 % (47-70); POSITIVE COUNT NO; POSITIVE DIFFERENTIAL YES; POSITIVE MORPHOLOGY NO; Platelet Count 129 K/mm3 (150-450); RBC Distribution Width CV 13.6 % (11.6-14.6); RBC Distribution Width SD 45.3 fl (35.1-43.9); Red Blood Count 4.24 M/mm3 (4.2-5.4); White Blood Count 2.8 K/mm3 (4.4-11.0)
[2018-09-12 15:41] LABS: BUN 15 mg/dL (7-18); BUN/Creat Ratio 19.2 RATIO (10-20); Creatinine, Serum 0.78 mg/dL (0.55-1.02); EST Glomerular Filtration Rate 80 mL/min (>60); Est Glom Filt Rate - Afr Amer 97 mL/min (>60); Glucose 105 mg/dL (74-106); Protein, Total 6.8 g/dL (6.4-8.2)
[2018-09-12 15:42] LABS: ALB/GLOB Ratio 0.9 RATIO (0.9-2.4); AST(SGOT) 94 U/L (15-37); Alanine Aminotransfer ALT/SGPT 54 U/L (13-56); Albumin, Serum 3.3 g/dL (3.2-5.0); Alkaline Phosphatase 92 U/L (45-117); Anion Gap 11 (5-15); Calcium,Total 7.8 mg/dL (8.5-10.1); Chloride 100 mmol/L (98-107); Globulin 3.5 g/dL (2.2-4.2); Potassium 2.9 mmol/L (3.5-5.1); Sodium Level 137 mmol/L (136-145); T4 Free Direct 1.46 ng/dL (0.76-1.46); Thyroid Stim Hormone (TSH) 0.36 uIU/mL (0.358-3.74)
[2018-09-12 15:50] LABS: Anisocytosis RARE; Macrocytosis RARE; Platelet Estimate SLT DEC (ADEQ); Platelet Morphology LARGE
[2018-09-14 09:25] LABS: Pathologist Review Reviewed
== END | disposition home or self-care (01) ==
LOC: LAB.FUTURE 13:34
PROVIDERS: Family Provider Family Medicine; PCP Family Medicine; Visit Provider Family Medicine
DX: D61.818 Other pancytopenia (principal); R74.8 Abnormal levels of other serum enzymes; R79.89 Other specified abnormal findings of blood chemistry
CPT/HCPCS: 36415; 80053; 84439; 84443; 85025

== ENCOUNTER → 2018-09-15 | Outpatient (CLI) | payer BC, MEDICARE, SELFPAY ==
[2018-09-03 13:41] VITALS: BMI 39.2
== END | disposition home or self-care (01) ==
LOC: LAB.FUTURE 14:04
PROVIDERS: Family Provider Family Medicine; PCP Family Medicine; Visit Provider Family Medicine
DX: R05 Cough (principal)
CPT/HCPCS: 87070; 87077; 87186; 87205

== ENCOUNTER → 2018-11-28 | Outpatient (CLI) | payer BC, MEDICARE, SELFPAY ==
[2018-09-03 13:41] VITALS: BMI 39.2
[2018-11-28 17:13] LABS: Absolute Lymphocyte Count 0.44 X10^3/uL (0.83-4.51); Absolute Neutrophil Count 3.9 X10^3/uL (2.0-7.7); Basophil# 0.04 X10^3/uL; Basophil% 0.8 % (0-1); Eosinophil# 0.14 X10^3/uL; Eosinophils% 2.8 % (0-5); Hematocrit 39.1 % (37-47); Hemoglobin 12.6 g/dL (12.0-15.0); Lymphocyte # 0.44 X10^3/ul (4.0); Lymphocyte % 8.7 % (19-41); Mean Corp Hgb Conc 32.2 g/dL (32-36); Mean Corpuscular Hgb 31.5 pg (27.0-32.0); Mean Corpuscular Volume 97.8 fL (81-99); Mean Platelet Vol. 11.2 fl (6.2-12.0); Monocyte# 0.51 X10^3/uL; NRBC Flagged by Analyzer 0 % (0-5); Neutrophil # 3.93 X10^3/uL (2.7-7.7); Neutrophil % 77.3 % (47-70); POSITIVE DIFFERENTIAL YES; Platelet Count 147 K/mm3 (150-450); RBC Distribution Width CV 13.9 % (11.6-14.6); RBC Distribution Width SD 50.3 fl (35.1-43.9); White Blood Count 5.1 K/mm3 (4.4-11.0)
[2018-11-28 17:22] LABS: Differential Indicated SCAN CRITERIA MET
[2018-11-28 17:29] LABS: ALB/GLOB Ratio 0.9 RATIO (0.9-2.4); AST(SGOT) 28 U/L (15-37); Alanine Aminotransfer ALT/SGPT 35 U/L (13-56); Albumin, Serum 3.4 g/dL (3.2-5.0); Alkaline Phosphatase 121 U/L (45-117); Anion Gap 5 (5-15); BUN 21 mg/dL (7-18); BUN/Creat Ratio 25.4 RATIO (10-20); Calcium,Total 8.7 mg/dL (8.5-10.1); Chloride 112 mmol/L (98-107); Creatinine, Serum 0.83 mg/dL (0.55-1.02); EST Glomerular Filtration Rate 74 mL/min (>60); Est Glom Filt Rate - Afr Amer 90 mL/min (>60); Globulin 3.6 g/dL (2.2-4.2); Glucose 97 mg/dL (74-106); Potassium 3.2 mmol/L (3.5-5.1); Sodium Level 141 mmol/L (136-145)
[2018-11-28 18:05] LABS: Platelet Estimate ADEQUATE (ADEQ); Red Cell Morphology NORM C+C NORMAL (NORM C&C)
== END | disposition home or self-care (01) ==
LOC: LAB.FUTURE 15:47
PROVIDERS: Family Provider Family Medicine; PCP Family Medicine; Referring Provider Internal Medicine; Visit Provider Internal Medicine
DX: Z79.899 Other long term (current) drug therapy (principal)
CPT/HCPCS: 36415; 80053; 85025

== ENCOUNTER → 2018-12-25 06:45 | Outpatient (CLI) | payer BC, MEDICARE, SELFPAY ==
[2018-09-03 13:41] VITALS: BMI 39.2
--- NOTE | 2018-12-25 09:35 | STRESSREP ---
Stress Test Report Date: 12-25-18 Procedure: Pharmacologic stress nuclear imaging study Indications: Hypertension Consent: Per the patient Procedure: The patient underwent pharmacologic (Regadenoson) evaluation with a peak heart rate of 83 beats per minute (52 %predicted maximal heart rate) and a peak blood pressure of 148/82 mmHg. The baseline ECG demonstrated normal sinus rhythm. The peak pharmacologic ECG demonstrated no obvious ECG changes. There were no cardiac dysrhythmias pretest, during pharmacologic infusion, or recovery. There was no complaint of chest discomfort during pharmacologic infusion or recovery. The examination was discontinued secondary to completion of protocol. Impression: 1. Pharmacologic (Regadenoson) evaluation 2. Peak pharmacologic ECG with no obvious ECG changes. 3. There were no cardiac dysrhythmias pretest, during pharmacologic infusion, or recovery. 4. Nuclear images pending Myocardial perfusion imaging study: Technique: The patient was injected with 12.0 millicuries of technetium 99m Cardiolite and subsequently rest SPECT Cardiolite nuclear imaging was obtained in the horizontal long, vertical long, and short axis views. The patient underwent pharmacologic (Regadenoson) evaluation with a peak heart rate of 83 beats per minute (52 % percent predicted maximal heart rate) and a peak blood pressure of 148/82 mmHg. The patient was injected with 35.0 millicuries of technetium 99m Cardiolite and subsequently stress SPECT Cardiolite nuclear imaging was obtained in the horizontal long, vertical long, and short axis views. A gated Cardiolite study at peak stress was obtained. Interpretation: Rest and stress SPECT Cardiolite nuclear imaging status post realignment, normalization, and attenuation correction demonstrate relative uniform tracer uptake and myocardial perfusion appearing within normal limits. There is end systolic thickening and brightening. The gated Cardiolite study demonstrates myocardial thickening and inward wall motion. The reported LVEF is 42 %. Impression: 1. Rest and stress SPECT Cardiolite nuclear imaging demonstrate relative uniform tracer uptake and myocardial perfusion appearing within normal limits. 2. The gated Cardiolite study reports an LVEF of 42 %. This note was generated with [employer] software. It may contain incorrect words, spelling, and punctuation that were not noted in checking the note before signing.
== END ==
PROVIDERS: Family Provider Family Medicine; PCP Family Medicine; Referring Provider Family Medicine; Visit Provider Family Medicine
DX: R07.9 Chest pain, unspecified (principal)
CPT/HCPCS: 78452; 93017; A9500; A4216; J2785

== ENCOUNTER → 2019-01-18 | Outpatient (CLI) | payer BC, MEDICARE, SELFPAY ==
[2018-09-03 13:41] VITALS: BMI 39.2
[2019-01-18 10:22] LABS: Absolute Lymphocyte Count 0.49 X10^3/uL (0.83-4.51); Absolute Neutrophil Count 4.5 X10^3/uL (2.0-7.7); Basophil# 0.06 X10^3/uL; Eosinophil# 0.12 X10^3/uL; Hematocrit 39.5 % (37-47); Hemoglobin 12.8 g/dL (12.0-15.0); Lymphocyte # 0.49 X10^3/ul (4.0); Lymphocyte % 8.1 % (19-41); Mean Corp Hgb Conc 32.4 g/dL (32-36); Mean Corpuscular Hgb 30.7 pg (27.0-32.0); Mean Corpuscular Volume 94.7 fL (81-99); Mean Platelet Vol. 11.5 fl (6.2-12.0); Monocyte# 0.82 X10^3/uL; Monocyte% 13.6 % (0-10); NRBC Flagged by Analyzer 0 % (0-5); Neutrophil # 4.54 X10^3/uL (2.7-7.7); POSITIVE DIFFERENTIAL YES; Platelet Count 153 K/mm3 (150-450); RBC Distribution Width CV 13.1 % (11.6-14.6); RBC Distribution Width SD 45.1 fl (35.1-43.9); Red Blood Count 4.17 M/mm3 (4.2-5.4); White Blood Count 6.1 K/mm3 (4.4-11.0)
[2019-01-18 10:33] LABS: Differential Indicated SCAN CRITERIA MET
[2019-01-18 11:04] LABS: ALB/GLOB Ratio 0.9 RATIO (0.9-2.4); AST(SGOT) 25 U/L (15-37); Alanine Aminotransfer ALT/SGPT 35 U/L (13-56); Albumin, Serum 3.6 g/dL (3.2-5.0); Alkaline Phosphatase 128 U/L (45-117); Anion Gap 6 (5-15); BUN 18 mg/dL (7-18); BUN/Creat Ratio 19.9 RATIO (10-20); Calcium,Total 8.8 mg/dL (8.5-10.1); Chloride 106 mmol/L (98-107); Creatinine, Serum 0.91 mg/dL (0.55-1.02); EST Glomerular Filtration Rate 67 mL/min (>60); Est Glom Filt Rate - Afr Amer 81 mL/min (>60); Globulin 3.8 g/dL (2.2-4.2); Glucose 81 mg/dL (74-106); Potassium 3.4 mmol/L (3.5-5.1); Protein, Total 7.4 g/dL (6.4-8.2); Sodium Level 141 mmol/L (136-145)
[2019-01-18 11:41] LABS: Platelet Estimate ADEQUATE (ADEQ); Reactive Lymphocyte RARE; Red Cell Morphology NORM C+C NORMAL (NORM C&C)
== END | disposition home or self-care (01) ==
LOC: LAB 09:41
PROVIDERS: Family Provider Family Medicine; PCP Family Medicine
DX: Z79.899 Other long term (current) drug therapy (principal)
CPT/HCPCS: 36415; 80053; 85025

== ENCOUNTER 2019-05-14 18:09 | Inpatient (IN) | payer BC, MEDICARE, SELFPAY ==
[2018-09-03 13:41] VITALS: BMI 39.2
[2019-05-14 18:11] VITALS: BP 129/76; PULSE 78; PULSE 79; RESP 14; RESP 18; TEMP 37.1; O2SAT 95; BMI 88.0
--- NOTE | 2019-05-14 19:23 | EKG12_ITS ---
Test Reason : DYSRYTHMIA Blood Pressure : / mmHG Vent. Rate : 078 BPM Atrial Rate : 078 BPM P-R Int : 164 ms QRS Dur : 092 ms QT Int : 386 ms P-R-T Axes : 043 016 011 degrees QTc Int : 440 ms Normal sinus rhythm Normal ECG Confirmed by JAMAL MCGOWAN, JASON ([id number]), visual effects editor MARTIN NEWELL ([id number]) on 05/17/2019 11:16:01 AM Referred By: Jann Wright Confirmed By:JASON BERRY MD
--- NOTE | 2019-05-14 19:25 | RAD_ITS ---
STUDY: X-RAY CHEST REASON FOR EXAM: Female, 63 years old. lower leg edema TECHNIQUE: AP portable COMPARISON: September 04, 2018 FINDINGS: There is chronic interstitial scarring seen in both lower lobes.. There is no demonstrated pleural abnormality. Normal size heart. Normal mediastinum and kulwinder. Normal visualized pulmonary arteries. Normal visualized aortic arch and descending thoracic aorta. Normal visualized thoracic spine. Normal visualized ribs, clavicles, and shoulders. There is no demonstrated abnormality of the visualized soft tissue structures of the upper abdomen. RAD/Chest 1 View (Portable) IMPRESSION: Interstitial scarring in both lower lobes. No acute disease. Electronically Signed: Gildardo Luna MD at 19:40 EST , Service support ,
[2019-05-14 20:05] LABS: Absolute Lymphocyte Count 0.58 X10^3/uL (0.83-4.51); Absolute Neutrophil Count 6.1 X10^3/uL (2.0-7.7); Basophil# 0.04 X10^3/uL; Basophil% 0.5 % (0-1); Eosinophils% 1.3 % (0-5); Hematocrit 38.2 % (37-47); Hemoglobin 12.2 g/dL (12.0-15.0); Lymphocyte # 0.58 X10^3/ul (4.0); Lymphocyte % 7.8 % (19-41); Mean Corp Hgb Conc 31.9 g/dL (32-36); Mean Corpuscular Hgb 30.4 pg (27.0-32.0); Mean Corpuscular Volume 95.3 fL (81-99); Mean Platelet Vol. 11.2 fl (6.2-12.0); Monocyte# 0.58 X10^3/uL; Monocyte% 7.8 % (0-10); NRBC Flagged by Analyzer 0 % (0-5); Neutrophil # 6.08 X10^3/uL (2.7-7.7); Neutrophil % 82.2 % (47-70); POSITIVE DIFFERENTIAL YES; Platelet Count 154 K/mm3 (150-450); RBC Distribution Width SD 45.8 fl (35.1-43.9); Red Blood Count 4.01 M/mm3 (4.2-5.4); White Blood Count 7.4 K/mm3 (4.4-11.0)
[2019-05-14 20:08] LABS: Differential Indicated SCAN CRITERIA MET
[2019-05-14 20:10] LABS: Prothrombin Time (Protime)PT. 13.1 SECONDS (11.7-14.9)
[2019-05-14 20:11] LABS: Partial Thromboplast Time 32.7 Seconds (24.1-36.2)
[2019-05-14 20:23] VITALS: BP 136/64; PULSE 78; RESP 100; O2SAT 15
[2019-05-14 20:24] VITALS: TEMP 36.9
--- NOTE | 2019-05-14 20:24 | ED.DCSUM_ITS ---
History of Present Illness Chief Complaint: Edema Detail of Chief Complaint: Edema and rash started yesterday Informant: Patient, Family Onset: Yesterday Context: Sudden Onset Timing: Continuous Quality: Red warm edematous right leg and foot Location: Right leg and foot Current Severity: Moderate Maximum Severity: Moderate Worsened by: Abrasion to skin Relieved by: Nothing Associated Symptoms: Documented fever presumed to be influenza Narrative: Lobo is an elderly woman with history of MS who had fever and chills and respiratory symptoms who was presumed to have influenza by her primary care provider and started her on Tamiflu. She presents because of swelling of the right leg and foot with redness and warmth over the past 24 hours. She has multiple abrasions that may be the nidus of her infection. She reports increased weakness secondary to exacerbation of MS. She does receive chemotherapy every 6 months for her MS. She is scheduled to receive chemotherapy on May. She does report runny nose, cough. She also reports shortness of breath and difficulty breathing. She was started on Tamiflu and states she is compliant. Prior similar symptoms: Yes - Last year when she was diagnosed with influenza. She did not have a rash Recent Illness/Hospitalization: Yes - Zoomed influenza - Past Medical History (1) Exacerbation of multiple sclerosis Status: Chronic (2) Migraine headache Status: Chronic (3) Peripheral neuropathy Status: Chronic Past Medical History - Allergies and Home Meds Allergies/Adverse Reactions: Allergies adhesive Allergy (Verified 05/14/19 18:10) Unknown amlodipine besylate [From Lotrel] Allergy (Verified 05/14/19 18:10) Unknown aspirin Allergy (Verified 05/14/19 18:10) Unknown benazepril HCl [From Lotrel] Allergy (Verified 05/14/19 18:10) Unknown codeine Allergy (Verified 05/14/19 18:10) Unknown latex Allergy (Verified 05/14/19 18:10) Rash Penicillins Allergy (Verified 05/14/19 18:10) Unknown Primary Care Physician: Walt La DO [Primary Care Provider] - Prior records reviewed: Yes Surgical History: noncontributory Lives: With Family Smoking Status: Never smoker Alcohol: None Drugs: None - Family History Paternal Family History: Reports: - - Denies history of MS in first-degree relative. Review of Systems General: Reports: Chills, Fever, Malaise. Denies: Subjective, Sweats, Weight loss Eyes: Denies: Visual changes - bilaterally, Blurred Vision - bilaterally ENT: Denies: Rhinorrhea, Sore throat Cardiovascular: Denies: Chest pain, Palpitations Respiratory: Reports: Dyspnea, Cough, Dyspnea on exertion. Denies: Orthopnea, Paroxysmal nocturnal dyspnea Gastrointestinal: Denies: Abdominal pain, Nausea, Vomiting, Diarrhea, Melena, Hematochezia Genitourinary: Reports: Dysuria Musculoskeletal: Reports: Myalgias, Swelling, Extremity Pain. Denies: Arthralgias, Neck pain, Back pain Skin: Reports: Rash, Wounds Neurological: Reports: Weakness, Parasthesia. Denies: Headache Endocrine: Denies: Polyuria, Polydipsia Hematologic: Denies: Easy bruising, Easy bleeding Allergy: Denies: Uticaria, Swelling of the mouth Physical Exam Vital Signs/Narrative: Vital Signs Temp Pulse Resp BP Pulse Ox 05/14/19 18:11 98.7 F 79 18 129/76 H 95 Inital Vital Signs reviewed: Yes General: Well nourished, Well developed, Obese, No Acute Distress Head: Normocephalic, Atraumatic Eyes: Perrl, EOMI. Negative for: Pale conjunctiva ENT: Moist mucous membranes, TM's clear, Nasal congestion. Negative for: No rhinorrhea Neck: Supple, Nontender, No lymphadenopathy, No JVD Cardiovascular: Regular rate, Regular rhythm, No murmurs, Normal S1, Normal S2 Respiratory: No distress, CTA bilaterally, Chest nontender, Decreased Air Movement. Negative for: Rales, Rhonchi, Wheezing Abdomen: Soft, Nontender, Nondistended, Normal bowel sounds Rectal: Deferred Extremities: Edema, - - Is evidence of cellulitis inferior to the right knee involving the entire right leg and foot. There are no cracks in the skin between the toes or evidence of tinea infection.. Negative for: Nontender Skin: Normal color, Rash - Colitis right leg and foot Neurological: Alert, Oriented x3, Cranial nerves II-XII grossly intact. Negative for: Normal Strength, Normal Sensation, Normal Gait Psychological: Normal affect Diagnostic/Tx/Re-eval Chest X-Ray - ED: 1 View, Read by ED Physician, Read by Radiologist, Normal, Heart, Mediastinum, Bony Structures, Chronic Changes, - - I was interpreted by radiologist prior to my review. Impressions Chest X-Ray 05/14/19 19:25 IMPRESSION: Interstitial scarring in both lower lobes. No acute disease. Electronically Signed: Gildardo Luna MD at 19:40 EST , Service support , 05/14/19 19:25 Chest 1 View (Portable) [RAD] Stat 05/14/19 19:35 Mucosa - Nasopharyngeal Influenza Types A,B Direct FA ([facility]) - Final Laboratory Results 05/14/19 05/14/19 05/14/19 19:40 19:40 19:40 WBC 7.4 RBC 4.01 L Hgb 12.2 Hct 38.2 MCV 95.3 MCH 30.4 MCHC 31.9 L RDW Std Deviation 45.8 H RDW Coeff of Caty 13.0 Plt Count 154 MPV 11.2 Immature Gran % (Auto) 0.400 Neut % (Auto) 82.2 H Lymph % (Auto) 7.8 L [place] % (Auto) 7.8 Eos % (Auto) 1.3 Baso % (Auto) 0.5 Absolute Neuts (auto) 6.1 Absolute Lymphs (auto) 0.58 L Nucleated RBC % 0 Differential Comment SCANNED PT 13.1 INR 1.0 APTT 32.7 Sodium 142 Potassium 3.1 L Chloride 106 Carbon Dioxide 28.0 Anion Gap 8 BUN 14 Creatinine 1.11 H Estim Creat Clear Calc 47.29 Est GFR (MDRD) Af Amer 64 Est GFR (MDRD) Non-Af 53 L BUN/Creatinine Ratio 12.6 Glucose 121 H Lactic Acid Calcium 9.1 Total Bilirubin 0.30 AST 23 ALT 38 Alkaline Phosphatase 107 Total Protein 7.6 Albumin 3.3 Globulin 4.3 H Albumin/Globulin Ratio 0.8 L 05/14/19 19:40 WBC RBC Hgb Hct MCV MCH MCHC RDW Std Deviation RDW Coeff of Caty Plt Count MPV Immature Gran % (Auto) Neut % (Auto) Lymph % (Auto) [place] % (Auto) Eos % (Auto) Baso % (Auto) Absolute Neuts (auto) Absolute Lymphs (auto) Nucleated RBC % Differential Comment PT INR APTT Sodium Potassium Chloride Carbon Dioxide Anion Gap BUN Creatinine Estim Creat Clear Calc Est GFR (MDRD) Af Amer Est GFR (MDRD) Non-Af BUN/Creatinine Ratio Glucose Lactic Acid 1.4 Calcium Total Bilirubin AST ALT Alkaline Phosphatase Total Protein Albumin Globulin Albumin/Globulin Ratio Patient laboratory results are unremarkable. However she does have significant cellulitis of the entire right leg and foot. Based on literature recommendation is inpatient therapy since outpatient therapy has a high failure rate. When I informed her of her test results she informed me that she has had urinary symptoms as well. Will obtain a UA. - EKG Initial EKG Interpretation: Sinus Rhythm - Sinus rhythm with a ventricular rate of 78. ME interval 164 ms. QS duration 92 ms. QT duration 386 ms. [place] is normal. EKG is normal. - Medical Decision Making Influenza screen was obtained since patient was presumed to have influenza. This may represent a viral infection versus influenza. Chest x-ray was obtained because of her complaint of shortness of breath with cough. Sepsis work-up was undertaken because she does have evidence of cellulitis of the entire right leg and foot. Because of her allergies she was started on aztreonam and metronidazole. She also received vancomycin for staph coccal coverage. Urine was obtained prior to antibiotics. Urine was sent to the lab for testing. Since patient has cellulitis of the entire right leg and foot hospitalist has been paged for observation with IV antibiotics versus admission. ED Disposition - Plan for ED Patient: Disposition: Acute Care Hospital [facility] [place] Diagnosis: Cellulitis of leg, right, Cellulitis of foot, right Referrals: Walt La DO [Primary Care Provider] -
[2019-05-14 20:28] LABS: ALB/GLOB Ratio 0.8 RATIO (0.9-2.4); AST(SGOT) 23 U/L (15-37); Alanine Aminotransfer ALT/SGPT 38 U/L (13-56); Albumin, Serum 3.3 g/dL (3.2-5.0); Alkaline Phosphatase 107 U/L (45-117); Anion Gap 8 (5-15); BUN 14 mg/dL (7-18); BUN/Creat Ratio 12.6 RATIO (10-20); Calcium,Total 9.1 mg/dL (8.5-10.1); Chloride 106 mmol/L (98-107); Creatinine, Serum 1.11 mg/dL (0.55-1.02); EST Glomerular Filtration Rate 53 mL/min (>60); Est Glom Filt Rate - Afr Amer 64 mL/min (>60); Estimated Creatinine Clearance 47.29 ml/min; Globulin 4.3 g/dL (2.2-4.2); Glucose 121 mg/dL (74-106); Potassium 3.1 mmol/L (3.5-5.1); Protein, Total 7.6 g/dL (6.4-8.2); Sodium Level 142 mmol/L (136-145)
[2019-05-14 20:45] LABS: Bacteria 0 SEEN /hpf (None Seen)
[2019-05-14 20:46] LABS: Differential Comment SCANNED
[2019-05-14 20:50] LABS: Lactic Acid 1.4 mmol/L (0.4-1.9)
[2019-05-14] MEDS: metroNIDAZOLE 500 MG/100 ML BAG 100 MG IV (20:59)
--- NOTE | 2019-05-14 21:12 | PCM.HP.STD ---
Problem List (1) Influenza A bronchitis Status: Acute (2) Cellulitis of leg, right Status: Acute (3) Exacerbation of multiple sclerosis Status: Chronic (4) Migraine headache Status: Chronic (5) Peripheral neuropathy Status: Chronic (6) Cellulitis of foot, right Status: Acute History of Present Illness Date of Admission: 05/14/19 Chief Complaint: right leg swelling and redness The patient is a 63 year old F with a significant history of multiple sclerosis who presented to the emergency department with right leg swelling and right leg redness. The swelling and redness extend to have a right foot. Associated with her symptoms is nausea; vomiting; and a fever of 102 Fahrenheit at home. Further she had generalized body aches; and productive cough with greenish sputum. She called her PCP before her right leg symptoms started. At that time she had only flulike symptoms. Because a year ago patient she had influenza, her PCP prophylactically started patient on Tamiflu. So far patient has taken 4 doses of ordered Tamiflu. On this presentation at the emergency department influenza screen was negative. Past Medical History Past Medical History (Chronic Problems): Chronic Problems Exacerbation of multiple sclerosis (Chronic) Migraine headache (Chronic) Peripheral neuropathy (Chronic) Allergies adhesive Allergy (Verified 05/14/19 18:10) Unknown amlodipine besylate [From Lotrel] Allergy (Verified 05/14/19 18:10) Unknown aspirin Allergy (Verified 05/14/19 18:10) Unknown benazepril HCl [From Lotrel] Allergy (Verified 05/14/19 18:10) Unknown codeine Allergy (Verified 05/14/19 18:10) Unknown latex Allergy (Verified 05/14/19 18:10) Rash Penicillins Allergy (Verified 05/14/19 18:10) Unknown Home Medications: Ambulatory Orders Medication Instructions Recorded Amitriptyline HCl [Elavil] 100 mg PO QHS 08/04/14 Atenolol [Tenormin (beta marilee)] 50 mg PO DAILY 08/04/14 Atenolol [Tenormin (beta marilee)] 75 mg PO QHS 08/04/14 Baclofen 30 mg PO TID 08/04/14 Cholecalciferol (Vitamin D3) 50,000 unit PO TUTH 08/04/14 [Optimal D3] Cyanocobalamin [Vitamin B12] 100 mcg IM Q30D 08/04/14 Ibuprofen [Motrin] 400 mg PO DAILY 08/04/14 Omeprazole [Prilosec] 20 mg PO BID 08/04/14 Sumatriptan Succinate [Imitrex] 50 mg PO PRN PRN 09/03/18 traMADol [Ultram] 50 mg PO Q4H PRN PRN 09/03/18 Amantadine [Symmetrel] 100 mg PO BID 09/04/18 Bumetanide 2 mg PO BID 09/04/18 Ocrelizumab [Ocrevus] 300 mg IV Q6M 09/04/18 Potassium Chloride [Klor-Con M20] 20 meq PO PRN PRN 09/04/18 Guaifenesin [Mucinex] 1,200 mg PO BID #14 tablet 09/05/18 Oseltamivir Phosphate [Tamiflu] 75 mg PO BID #5 capsule 09/05/18 Ondansetron [Ondansetron Odt] 1 tab PO Q4H PRN PRN 05/14/19 Surgical History: hysterectomy Lives: With Family Smoking Status: Former smoker Alcohol: None Drugs: None - *Family History Paternal History Items: Diabetes, Heart Disease, - - Denies history of MS in first-degree relative. Maternal History Items: - - Her mother had DVT and PE and from the embolism. Review of Systems Constitutional: Reports: Chills, Fever. Denies: Weight Change HEENT: Reports: Sinus Drainage. Denies: Head Aches Cardiovascular: Denies: Chest Pain, Palpitations Respiratory: Reports: Cough, Sputum production. Denies: Shortness of breath at rest Gastrointestinal: Reports: Nausea, Vomiting. Denies: Abdominal Pain Genitourinary: Denies: Dysuria Musculoskeletal: Reports: Muscle pain. Denies: Joint Pain, Joint Tenderness Skin: Denies: Rash, Wounds Neurological: Denies: Numbness, Tingling, Focal weakness Psychiatric: Denies: Anxiety, Depression, Homicidal Ideations, Suicidal Ideations Hematologic/ Lymphatic: Denies: Easy Bruising, Easy Bleeding VTE Information - Inpt Only VTE Present on Admission: No VTE Mechan Device Prophylaxis: None VTE Pharm Prophylaxis ordered?: Yes Patient Problems: Active and Suspected Problems Cellulitis of leg, right (Acute) Cellulitis of foot, right (Acute) - Physical Exam Vitals/I&O's: Vital Signs Temp Pulse Resp BP Pulse Ox 98.4 F 78 100 H 136/64 H 15 05/14/19 20:24 05/14/19 20:23 05/14/19 20:23 05/14/19 20:23 05/14/19 20:23 Oxygen Delivery Method Room Air Weight: 240 kg Body Mass Index (BMI) 88.0 Intake and Output for Last 24 Hours 05/12/19 05/13/19 05/14/19 23:59 23:59 23:59 Intake Total 100 / 100 Balance 100 / 100 General: Alert, Oriented x3, Cooperative HEENT: Atraumatic, PERRLA, EOMI, Normocephalic Neck: Supple, No JVD, Negative Carotid Bruits Lungs: Clear to auscultation, Normal air movement Cardiovascular: Regular rate, No murmurs Abdomen: Bowel Sounds Present, Soft, Non Tender Extremities: No edema, Capillary Refill Less than 3 Seconds Skin: - - Erythema and swelling of right leg and right foot. Increased warmth of right leg and right foot. Mild tenderness of right leg and right foot Musculoskeletal: Tenderness - Mild of the right leg and right foot Neurological: Cranial nerves II-XII grossly intact Psych/Mental Status: Normal Affect, Appropriate Microbiology Past 72 Hours 05/14/19 19:35 Mucosa - Nasopharyngeal Influenza Types A,B Direct FA (JACKIE) - Final Laboratory Results 05/14/19 19:40: WBC 7.4, RBC 4.01 L, Hgb 12.2, Hct 38.2, MCV 95.3, MCH 30.4, MCHC 31.9 L, RDW Std Deviation 45.8 H, RDW Coeff of Caty 13.0, Plt Count 154, MPV 11.2, Immature Gran % (Auto) 0.400, Neut % (Auto) 82.2 H, Lymph % (Auto) 7.8 L, Stephens % (Auto) 7.8, Eos % (Auto) 1.3, Baso % (Auto) 0.5, Absolute Neuts (auto) 6.1, Absolute Lymphs (auto) 0.58 L, Nucleated RBC % 0, Differential Comment SCANNED 05/14/19 19:40: PT 13.1, INR 1.0, APTT 32.7 05/14/19 19:40: Sodium 142, Potassium 3.1 L, Chloride 106, Carbon Dioxide 28.0, Anion Gap 8, BUN 14, Creatinine 1.11 H, Estim Creat Clear Calc 47.29, Est GFR (MDRD) Af Amer 64, Est GFR (MDRD) Non-Af 53 L, BUN/Creatinine Ratio 12.6, Glucose 121 H, Calcium 9.1, Total Bilirubin 0.30, AST 23, ALT 38, Alkaline Phosphatase 107, Total Protein 7.6, Albumin 3.3, Globulin 4.3 H, Albumin/Globulin Ratio 0.8 L 05/14/19 19:40: Lactic Acid 1.4 05/14/19 20:05: Urine Color Pending, Urine Clarity Pending, Urine pH Pending, Ur Specific [place] Pending, Urine Protein Pending, Urine Glucose (UA) Pending, Urine Ketones Pending, Urine Occult Blood Pending, Urine Nitrite Pending, Urine Bilirubin Pending, Urine Urobilinogen Pending, Ur Leukocyte Esterase Pending, Urine RBC Pending, Urine WBC Pending, Ur Squamous Epith Cells Pending, Urine Bacteria Pending, Urine Mucus Pending Assessment/Plan All Active Problems Influenza A bronchitis (Acute) Cellulitis of leg, right (Acute) Cellulitis of foot, right (Acute) The patient is a 63 year old F with a significant history of multiple sclerosis who presented to the emergency department with right leg swelling and right leg redness; and flulike symptoms and was being empirically for flu while at home. Right leg and right foot cellulitis Because of multiple allergies patient was started on vancomycin; aztreonam and metronidazole at the emergency department. Of note patient reports a penicillin allergy of vomiting. She said that in the past she has taken Keflex without any side effects. Will start patient on cefazolin. Will get Doppler of right lower extremity Her flu-like symptoms could likely be from cellulitis secondary to strep. However because she was started on Tamiflu at the emergency department we will continue Tamiflu for now. Will adjust Tamiflu for creatinine clearance. URI URI symptoms likely is prodromal of cellulitis. However in order not to miss probable influenza will continue Tamiflu as above. Mucinex continued History of bilateral leg swelling Bumetanide continued. Hypokalemia On presentation her potassium was 3.1. Potassium 60 mEq x 1 and 40 mg daily hold home. Potassium. Multiple sclerosis On home Ocrelizumab. Continue baclofen Vitamin D continued Hypertension On presentation her blood pressure was not within goal Atenolol continued Trend blood pressure and adjust blood pressure medication Vitamin D deficiency Vitamin D continued. Vitamin B12 deficiency On every 30 days vitamin B12 IM supplementation. DVT prophylaxis Subcutaneous Lovenox Code Visit Inpatient E&M: 88173 Init Hosp L3
[2019-05-14 21:35] LABS: Color, Urine Amber (Yellow); Glucose, Dipstick Normal (Normal); Ketone-Dipstick 5 mg/dl (Negative); Leukocyte Esterase-Dipstick 25 /ul (Negative); Nitrite-Dipstick Negative (Negative); Occult Blood-Urine 10 /ul (Negative); Protein-Dipstick 30 mg/dl (Negative); Urine Clarity Sl. Cloudy (Clear); Urine Urobilinogen 1 mg/dl (Normal)
[2019-05-14 21:46] LABS: Urine Bilirubin Dipstick 1 mg/dL (Negative)
[2019-05-14 21:51] LABS: Amorphous Sediment 1+; Mucous, Urine 1+ /hpf (<or=2+); Red Blood Cells-Urine 0-5 SEEN /hpf (0-5); Squamous Epithelial Cells - UA 0-5 SEEN /hpf (5-10); Transitional Epithelial - Ur 0-5 SEEN /hpf (0-5); White Blood Cells 0-5 SEEN /hpf (0-5)
[2019-05-14 21:59] VITALS: BP 140/70; PULSE 75; RESP 16; O2SAT 100
--- NOTE | 2019-05-14 22:17 | VDLE_ITS ---
Reason For Study: swelling RIGHT GSV is normal. CFV is compressible, spontaneous, phasic, competent and demonstrates normal augmentation. FV is compressible, spontaneous, phasic, competent and demonstrates normal augmentation. POP V is compressible, spontaneous, phasic, competent and demonstrates normal augmentation. T/P Trunk is compressible. PTV is compressible. RT PerV is compressible. Procedure Exam performed portable in ICU/CCU. The exam was diagnostic. A preliminary report was called and/or faxed to [facility]. Interpretation Summary There is no evidence of right lower extremity deep vein thrombosis. Right great saphenous vein appears patent and compressible segmentally. Ordering Physician: Jann Wright Performed By: Moreno Egan RVT
[2019-05-14 22:22] VITALS: BMI 38.9
[2019-05-14 22:40] VITALS: BP 140/69; PULSE 76; RESP 16; TEMP 36.8; O2SAT 94
[2019-05-14 23:45] VITALS: O2SAT 94
[2019-05-15] MEDS: Oseltamivir Phosphate 75 MG Capsule PO ×3 (00:11→23:34)
[2019-05-15] MEDS: Baclofen 10 MG Tablet 30 MG PO ×4 (00:11→23:33)
[2019-05-15] MEDS: Pantoprazole Sodium 20 MG Tablet PO ×3 (00:12→23:34)
[2019-05-15] MEDS: Atenolol 25 MG Tablet 75 MG PO ×2 (00:12→23:33)
[2019-05-15] MEDS: guaiFENesin 1,200 MG Tablet 1200 MG PO ×3 (00:12→23:34)
[2019-05-15] MEDS: Cefazolin 1 GM/50 ML BAG IV ×4 (00:15→23:34)
[2019-05-15 04:30] VITALS: BP 125/66; PULSE 78; RESP 16; TEMP 37.8; O2SAT 92
[2019-05-15] MEDS: Acetaminophen 325 MG Tablet 650 MG PO (05:35)
[2019-05-15] MEDS: 0.9% Saline Lock 10 ML Syringe IV ×2 (05:38→23:41)
[2019-05-15 06:09] LABS: Absolute Lymphocyte Count 0.55 X10^3/uL (0.83-4.51); Basophil# 0.02 X10^3/uL; Basophil% 0.3 % (0-1); Eosinophil# 0.07 X10^3/uL; Eosinophils% 0.9 % (0-5); Hematocrit 33.7 % (37-47); Hemoglobin 11.1 g/dL (12.0-15.0); Lymphocyte # 0.55 X10^3/ul (4.0); Lymphocyte % 7.5 % (19-41); Mean Corp Hgb Conc 32.9 g/dL (32-36); Mean Corpuscular Hgb 31.3 pg (27.0-32.0); Mean Corpuscular Volume 94.9 fL (81-99); Monocyte# 0.67 X10^3/uL; Monocyte% 9.1 % (0-10); NRBC Flagged by Analyzer 0 % (0-5); Neutrophil # 6.02 X10^3/uL (2.7-7.7); Neutrophil % 81.7 % (47-70); POSITIVE DIFFERENTIAL YES; Platelet Count 144 K/mm3 (150-450); RBC Distribution Width CV 12.9 % (11.6-14.6); Red Blood Count 3.55 M/mm3 (4.2-5.4); White Blood Count 7.4 K/mm3 (4.4-11.0)
[2019-05-15 06:18] LABS: Differential Indicated SCAN CRITERIA MET
[2019-05-15 06:27] LABS: Anion Gap 5 (5-15); BUN 11 mg/dL (7-18); BUN/Creat Ratio 13.6 RATIO (10-20); Calcium,Total 8.3 mg/dL (8.5-10.1); Chloride 110 mmol/L (98-107); Creatinine, Serum 0.81 mg/dL (0.55-1.02); EST Glomerular Filtration Rate 76 mL/min (>60); Est Glom Filt Rate - Afr Amer 92 mL/min (>60); Glucose 106 mg/dL (74-106); Potassium 3.8 mmol/L (3.5-5.1); Sodium Level 142 mmol/L (136-145)
[2019-05-15 07:00] VITALS: O2SAT 93
[2019-05-15 07:27] LABS: Differential Comment SCANNED
--- NOTE | 2019-05-15 09:45 | PN_ITS ---
Patient Problems: Active and Suspected Problems Cellulitis of leg, right (Acute) Cellulitis of foot, right (Acute) Reason for Visit: cellulitis Subjective: Right leg feeling better. Still feeling ill overall. Increased swelling in RLE. General malaise better. Vitals/I&O's: Vital Signs Temp Pulse Resp BP Pulse Ox 37.8 C H 78 16 125/66 H 92 05/15/19 04:30 05/15/19 04:30 05/15/19 04:30 05/15/19 04:30 05/15/19 04:30 Oxygen Delivery Method Room Air Weight: 106.3 kg Body Mass Index (BMI) 38.9 Intake and Output for Last 24 Hours 05/13/19 05/14/19 05/15/19 23:59 23:59 23:59 Intake Total 200 / 200 1187.75 / 1187.75 Balance 200 / 200 1187.75 / 1187.75 General: Alert, Cooperative, No apparent distress HEENT: Atraumatic, Normocephalic Oral: Moist Mucosa, No Gingival or Mucosal Lesions/ Ulcerations Neck: No Nodes, Trachea Midline Lungs: Clear to auscultation, Normal air movement, No rhonchi, No wheeze Cardiovascular: Regular rate, Regular Rhythm, Normal S1, Normal S2 Abdomen: Bowel Sounds Present, Soft, Non Tender, Non-Distended, No Hepato- splenomegaly Extremities: No Calf Tenderness, Edema - non-pitting in RLE Skin: No breakdown, - - erythema of RLE below the knee through the foot. no interdigit lesions on the right. Musculoskeletal: No Tenderness to Palpation of Joints or Extremities, No Muscle Wasting Psych/Mental Status: Normal Affect, Appropriate Microbiology Past 72 Hours 05/14/19 19:35 Mucosa - Nasopharyngeal Influenza Types A,B Direct FA (JACKIE) - Final Laboratory Results 05/14/19 19:40: WBC 7.4, RBC 4.01 L, Hgb 12.2, Hct 38.2, MCV 95.3, MCH 30.4, MCHC 31.9 L, RDW Std Deviation 45.8 H, RDW Coeff of Caty 13.0, Plt Count 154, MPV 11.2, Immature Gran % (Auto) 0.400, Neut % (Auto) 82.2 H, Lymph % (Auto) 7.8 L, Maries % (Auto) 7.8, Eos % (Auto) 1.3, Baso % (Auto) 0.5, Absolute Neuts (auto) 6.1, Absolute Lymphs (auto) 0.58 L, Nucleated RBC % 0, Differential Comment SCANNED 05/14/19 19:40: PT 13.1, INR 1.0, APTT 32.7 05/14/19 19:40: Sodium 142, Potassium 3.1 L, Chloride 106, Carbon Dioxide 28.0, Anion Gap 8, BUN 14, Creatinine 1.11 H, Estim Creat Clear Calc 47.29, Est GFR (MDRD) Af Amer 64, Est GFR (MDRD) Non-Af 53 L, BUN/Creatinine Ratio 12.6, Glucose 121 H, Calcium 9.1, Total Bilirubin 0.30, AST 23, ALT 38, Alkaline Phosphatase 107, Total Protein 7.6, Albumin 3.3, Globulin 4.3 H, Albumin/Globulin Ratio 0.8 L 05/14/19 19:40: Lactic Acid 1.4 05/14/19 20:05: Urine Color Adri, Urine Clarity Sl. Cloudy, Urine pH 5.0, Ur Specific [place] 1.020, Urine Protein 30 H, Urine Glucose (UA) Normal, Urine Ketones 5 H, Urine Occult Blood 10 H, Urine Nitrite Negative, Urine Bilirubin 1 H, Urine Urobilinogen 1 H, Ur Leukocyte Esterase 25 H, Urine RBC 0-5 SEEN, Urine WBC 0-5 SEEN, Ur Squamous Epith Cells 0-5 SEEN, Ur Transition Epith Cell 0-5 SEEN, Amorphous Sediment 1+, Urine Bacteria 0 SEEN, Urine Mucus 1+ 05/15/19 05:40: WBC 7.4, RBC 3.55 L, Hgb 11.1 L, Hct 33.7 L, MCV 94.9, MCH 31.3, MCHC 32.9, RDW Std Deviation 45.0 H, RDW Coeff of Caty 12.9, Plt Count 144 L, MPV 11.0, Immature Gran % (Auto) 0.500, Neut % (Auto) 81.7 H, Lymph % (Auto) 7.5 L, Maries % (Auto) 9.1, Eos % (Auto) 0.9, Baso % (Auto) 0.3, Absolute Neuts (auto) 6.0, Absolute Lymphs (auto) 0.55 L, Nucleated RBC % 0, Differential Comment SCANNED 05/15/19 05:40: Sodium 142, Potassium 3.8, Chloride 110 H, Carbon Dioxide 27.0, Anion Gap 5, BUN 11, Creatinine 0.81, Estim Creat Clear Calc 64.80, Est GFR (MDRD) Af Amer 92, Est GFR (MDRD) Non-Af 76, BUN/Creatinine Ratio 13.6, Glucose 106, Calcium 8.3 L Current Medications Acetaminophen (Tylenol) 650 mg PO Q6H PRN PRN PRN Reason: Pain Score 1-10/Temp > 100.7 F Last Admin: 05/15/19 05:35 Dose: 650 mg Documented by: Atenolol (Tenormin (Beta Trevon)) 50 mg PO DAILY [facility] Atenolol (Tenormin (Beta Trevon)) 75 mg PO QHS [facility] Last Admin: 05/15/19 00:12 Dose: 75 mg Documented by: Baclofen (Lioresal) 30 mg PO TID [facility] Last Admin: 05/15/19 05:35 Dose: 30 mg Documented by: Bumetanide (Bumex) 2 mg PO BIDLX [facility] Last Admin: 05/15/19 00:18 Dose: Not Given Documented by: Enoxaparin Sodium (Lovenox) 40 mg SC DAILY [facility] Ergocalciferol (Vitamin D) 50,000 unit PO TUTH [facility] Glucagon () 1 mg IM .X1 PRN PRN Reason: Hypoglycemia Guaifenesin (Mucinex) 1,200 mg PO BID [facility] Last Admin: 05/15/19 00:12 Dose: 1,200 mg Documented by: Cefazolin Sodium () 1 gm in 50 mls @ 100 mls/hr IV Q8 [facility] Last Infusion: 05/15/19 06:15 Dose: Infused Documented by: Dextrose (Dextrose 10%-Water) 250 mls @ 999 mls/hr IV .Q16M PRN; Protocol PRN Reason: HYPOGLYCEMIA Sodium Chloride () 250 mls @ 15 mls/hr IV .[id number] PRN PRN Reason: Saline Flush Last Infusion: 05/15/19 06:15 Dose: 15 mls/hr Documented by: Sodium Chloride () 250 mls @ 15 mls/hr IV .[id number] PRN PRN Reason: Additional IVPB Infusion Sodium Chloride () 250 mls @ 15 mls/hr IV .[id number] PRN PRN Reason: Saline Flush Sodium Chloride () 250 mls @ 15 mls/hr IV .[id number] PRN PRN Reason: Additional IVPB Infusion Sodium Chloride () 250 mls @ 15 mls/hr IV .[id number] PRN PRN Reason: Saline Flush Sodium Chloride () 250 mls @ 15 mls/hr IV .[id number] PRN PRN Reason: Additional IVPB Infusion Influenza Virus Vaccine Quadrival (Flucelvax /Fluzone ) 0.5 ml IM .ONCE ONE Stop: 05/15/19 10:01 Ondansetron HCl (Zofran) 4 mg IV Q8H PRN PRN PRN Reason: NAUSEA/VOMITING Oseltamivir Phosphate (Tamiflu) 75 mg PO BID [facility] Stop: 05/17/19 10:01 Last Admin: 05/15/19 00:11 Dose: 75 mg Documented by: Pantoprazole Sodium (Protonix) 20 mg PO BID [facility] Last Admin: 05/15/19 00:12 Dose: 20 mg Documented by: Potassium Chloride (K-Dur) 40 meq PO DAILYCM [facility] Senna/Docusate Sodium (Senokot-S, Jazzmine-Colace) 2 tablet PO BID PRN PRN PRN Reason: Constipation Sodium Chloride () 10 - 40 ml IV UD PRN PRN Reason: SALINE FLUSH Last Admin: 05/15/19 05:38 Dose: 10 ml Documented by: Sodium Chloride () 10 - 40 ml IV UD PRN PRN Reason: SALINE FLUSH Medical Necessity - Tobacco Use Smoking Status: Former smoker Assessment/Plan All Active Problems Influenza A bronchitis (Acute) Cellulitis of leg, right (Acute) Cellulitis of foot, right (Acute) 1. RLE cellulitis * still ongoing, erythema abutting the line of demarcation * suspect Strep, so will continue with cefazolin. However, if worse, then would add vancomycin * I suspect the patient's general malaise was the onset of the cellulitis, not influenza. Rapid flu negative, so will check resp viral panel. If that is negative for influenza, will discontinue oseltamivir. 2. Debility * was independent at home, but unable to bear weight with RLE, which is her good leg * PT/OT eval and treat * Pt open to the possibility of going to a SNF 3. MS * doubt MS flare * on ocrelizumab * follow up with neurology as outpt * Patient did not get a flu shot this year. Explained that it could and has (in 2018) affect her significantly. I advise flu vax now and annually. She agreed to be vaccinated now. 4. VTE prophylaxis: mod risk. LMWH. Code Visit Inpatient E&M: 69184 Subs Hosp L2
[2019-05-15 09:50] VITALS: BP 123/60; PULSE 78; RESP 18; TEMP 36.7; O2SAT 93
[2019-05-15] MEDS: Enoxaparin 40 MG/0.4 ML Syringe SC (10:09)
[2019-05-15] MEDS: Atenolol 50 MG Tablet PO (10:09)
[2019-05-15] MEDS: Bumetanide 2 MG Tablet PO ×2 (10:09→17:14)
--- NOTE | 2019-05-15 10:38 | CASEMGMT ---
RN CM Assessment Presentation: R foot and leg cellulitis,URI Intro role of CM and purpose of RN CM assessment. Demographics, PCP and Pharmacy verified. PCP: Dr. Walt La Specialists: [facility]erred [facility] Insurance: [employer]ian Prescription Benefit: yes LNOK: Living Arrangements: one story home with her , 2 steps to enter. Transportation: drives DME: handicap accessible bathroom, shower chair, rails/grab bars, hand held shower, lift chair, rollator, WC HHC/SNF: [facility] in past Patient DC goals: DC PLAN:
--- NOTE | 2019-05-15 11:34 | CASEMGMT ---
RN CM Assessment Presentation: Cellulits R leg/foot. Hx of multiple sclerosis Intro role of CM and purpose of RN CM assessment to patient. Pt is awake, alert, oriented and able to participate in assessment.. Demographics, PCP and Pharmacy verified. Lengthy conversation re: home DME needs, abilities and dc concerns. Pt has had [facility]HS in past, no HHC at this time. She states her rollator is old and ready to fall apart. RN CM discussed getting script for new rollator. Pt requests to find out copay/coverage prior to delivery. Discussed DME providers [facility] with her insurance, [facility] first choice. Pt states she is able to get up, use rollator for ambulation at home, however had increased difficulty with leg pain/cellulitis. Was using a BSC. works during the day, but daughter and grandson help pt when needed. -Rollator script faxed to [facility] PCP: Dr. Walt La Preferred Pharmacy: [facility] Insurance: [employer] Prescription Benefit: yes LNOK: , William Rogers Living Arrangements: Lives independently in one story home with her . 2 steps to enter. Generally independent with ADL's, however has needed assistance past few days. Transportation: family drives DME: shower chair, handicap accessible bathroom, rails/grab bars in bathroom, hand held shower, Rollator (old, will check on ordering new), lift chair. HHC/SNF: [facility] past Patient DC goals: Home with family to assist DC PLAN: anticipate home on discharge. Alaina GILBERT RN ACM
--- NOTE | 2019-05-15 13:04 | CASEMGMT ---
DREAD CM Note: Call to [facility], spoke with Serina. Cost of Rollator will be $59.95 after insurance. Pt is agreeable to pay this, and will speak with Serina via phone to give credit card information. Call returned to [facility] to update that pt's cell phone is and to call to [facility] room to speak with pt. rollator can be delivered to hospital room. Alaina GILBERT RN ACM
[2019-05-15 17:19] VITALS: BP 130/71; PULSE 81; RESP 16; TEMP 37.2; O2SAT 97
[2019-05-15 22:00] VITALS: BP 134/72; PULSE 72; RESP 15; TEMP 37.2; O2SAT 95
[2019-05-16] MEDS: Cefazolin 1 GM/50 ML BAG IV ×3 (06:47→21:40)
[2019-05-16] MEDS: 0.9% Saline Lock 10 ML Syringe IV (06:48)
[2019-05-16] MEDS: Baclofen 10 MG Tablet 30 MG PO ×3 (06:48→21:42)
[2019-05-16] MEDS: guaiFENesin 1,200 MG Tablet 1200 MG PO ×2 (09:12→21:42)
[2019-05-16] MEDS: Atenolol 50 MG Tablet PO (09:12)
[2019-05-16] MEDS: Pantoprazole Sodium 20 MG Tablet PO ×2 (09:12→21:43)
[2019-05-16] MEDS: Oseltamivir Phosphate 75 MG Capsule PO ×2 (09:12→21:43)
[2019-05-16] MEDS: Enoxaparin 40 MG/0.4 ML Syringe SC (09:13)
[2019-05-16] MEDS: Bumetanide 2 MG Tablet PO ×2 (09:13→17:14)
[2019-05-16] MEDS: Rizatriptan Benzoate 10 MG Tablet PO (09:16)
[2019-05-16 09:24] VITALS: BP 140/61; PULSE 75; RESP 16; TEMP 37.1; O2SAT 96
--- NOTE | 2019-05-16 09:31 | RAD_ITS ---
STUDY: X-RAY - RIGHT ANKLE REASON FOR EXAM: Female, 63 years old. PAIN, CELLULITIS TECHNIQUE: 2 view(s) of the ankle. COMPARISON: None. FINDINGS: Normal visualized distal tibia and fibula. Normal medial and lateral malleoli. Normal tibiotalar articulation and ankle mortise. Normal visualized talus and calcaneus. The visualized subtalar, talonavicular, calcaneocuboid and tarsal articulations are normal. There is diffuse soft tissue swelling. RAD/Ankle 2 Views IMPRESSION: Soft tissue swelling without demonstrated fracture or erosive process. Electronically Signed: Senthil Marino MD (Brooks) at 14:05 EST , Service support ,
[2019-05-16 14:00] VITALS: BP 143/71; PULSE 95; RESP 16; TEMP 36.6; O2SAT 94
--- NOTE | 2019-05-16 14:06 | PN_ITS ---
Patient Problems: Active and Suspected Problems Cellulitis of leg, right (Acute) Cellulitis of foot, right (Acute) Subjective: Patient was seen and examined in the ICU today, she has been complaining of some right ankle pain when she bears weight on her right ankle. Patient still complains of overall weakness, I discussed with her the possibility of going to an extended care facility short-term for rehab services-she prefers not to unless is absolutely necessary. - Physical Exam Vitals/I&O's: Vital Signs Temp Pulse Resp BP Pulse Ox 98.7 F 75 16 140/61 H 96 05/16/19 09:24 05/16/19 09:24 05/16/19 09:24 05/16/19 09:24 05/16/19 09:24 Oxygen Delivery Method Room Air Weight: 106.3 kg Body Mass Index (BMI) 38.9 Intake and Output for Last 24 Hours 05/14/19 05/15/19 05/16/19 23:59 23:59 23:59 Intake Total 200 / 200 1396.50 / 1696.50 1000 / 1000 Output Total 1200 / 3600 4000 / 4000 Balance 200 / 200 196.50 / -1903.50 -3000 / -3000 General: Alert, Oriented x3, Cooperative HEENT: Atraumatic, PERRLA, EOMI, Normocephalic Oral: Moist Mucosa Neck: Supple, Trachea Midline, Thyroid Normal Size and Texture Lungs: Clear to auscultation, Normal air movement, No rhonchi, No wheeze, No rales Cardiovascular: Regular rate, Regular Rhythm, Normal S1, Normal S2, No murmurs, PMI Normal, No rub noted, No Gallop Abdomen: Bowel Sounds Present, Soft, Non Tender, Non-Distended, No hernias noted Extremities: No clubbing, No cyanosis, Capillary Refill Less than 3 Seconds, Edema - Marked generalized edema noted over the patient's right lower leg, left lower leg is somewhat edematous Skin: No breakdown, Rash Present - There is redness noted over the right lower leg Musculoskeletal: No Tenderness to Palpation of Joints or Extremities, No Muscle Wasting Neurological: Cranial nerves II-XII grossly intact, Neuro grossly intact, Sensory exam intact to light touch and pain Psych/Mental Status: Normal Affect, Appropriate, Alert and oriented to time, place, person, mood and affect Microbiology Past 72 Hours 05/15/19 09:00 Mucosa - Nose Respiratory Panel (PCR) - Final 05/14/19 19:35 Mucosa - Nasopharyngeal Influenza Types A,B Direct FA (JACKIE) - Final Current Medications Acetaminophen (Tylenol) 650 mg PO Q6H PRN PRN PRN Reason: Pain Score 1-10/Temp > 100.7 F Last Admin: 05/15/19 05:35 Dose: 650 mg Documented by: Atenolol (Tenormin (Beta Trevon)) 50 mg PO DAILY [facility] Last Admin: 05/16/19 09:12 Dose: 50 mg Documented by: Atenolol (Tenormin (Beta Trevon)) 75 mg PO QHS [facility] Last Admin: 05/15/19 23:33 Dose: 75 mg Documented by: Baclofen (Lioresal) 30 mg PO TID [facility] Last Admin: 05/16/19 06:48 Dose: 30 mg Documented by: Bumetanide (Bumex) 2 mg PO BIDLX [facility] Last Admin: 05/16/19 09:13 Dose: 2 mg Documented by: Enoxaparin Sodium (Lovenox) 40 mg SC DAILY [facility] Last Admin: 05/16/19 09:13 Dose: 40 mg Documented by: Ergocalciferol (Vitamin D) 50,000 unit PO TUTH [facility] Last Admin: 05/15/19 10:09 Dose: 50,000 unit Documented by: Glucagon () 1 mg IM .X1 PRN PRN Reason: Hypoglycemia Guaifenesin (Mucinex) 1,200 mg PO BID [facility] Last Admin: 05/16/19 09:12 Dose: 1,200 mg Documented by: Cefazolin Sodium () 1 gm in 50 mls @ 100 mls/hr IV Q8 [facility] Last Infusion: 05/16/19 07:43 Dose: Infused Documented by: Dextrose (Dextrose 10%-Water) 250 mls @ 999 mls/hr IV .Q16M PRN; Protocol PRN Reason: HYPOGLYCEMIA Sodium Chloride () 250 mls @ 15 mls/hr IV .[id number] PRN PRN Reason: Saline Flush Last Infusion: 05/16/19 10:21 Dose: 0 mls/hr Documented by: Sodium Chloride () 250 mls @ 15 mls/hr IV .[id number] PRN PRN Reason: Additional IVPB Infusion Sodium Chloride () 250 mls @ 15 mls/hr IV .[id number] PRN PRN Reason: Saline Flush Sodium Chloride () 250 mls @ 15 mls/hr IV .[id number] PRN PRN Reason: Additional IVPB Infusion Sodium Chloride () 250 mls @ 15 mls/hr IV .[id number] PRN PRN Reason: Saline Flush Sodium Chloride () 250 mls @ 15 mls/hr IV .[id number] PRN PRN Reason: Additional IVPB Infusion Ondansetron HCl (Zofran) 4 mg IV Q8H PRN PRN PRN Reason: NAUSEA/VOMITING Oseltamivir Phosphate (Tamiflu) 75 mg PO BID [facility] Stop: 05/17/19 10:01 Last Admin: 05/16/19 09:12 Dose: 75 mg Documented by: Pantoprazole Sodium (Protonix) 20 mg PO BID [facility] Last Admin: 05/16/19 09:12 Dose: 20 mg Documented by: Potassium [facility] (K[facility]Dur) [facility] Last Admin: 05/16/19 09:13 Dose: 40 meq Documented by: Rizatriptan Benzoate (Maxalt) 10 mg PO DAILY PRN PRN PRN Reason: MIGRAINE SYMPTOMS Last Admin: 05/16/19 09:16 Dose: 10 mg Documented by: Senna/Docusate Sodium (Senokot-S, Jazzmine-Colace) 2 tablet PO BID PRN PRN PRN Reason: Constipation Sodium Chloride () 10 - 40 ml IV UD PRN PRN Reason: SALINE FLUSH Last Admin: 05/16/19 06:48 Dose: 10 ml Documented by: Sodium Chloride () 10 - 40 ml IV UD PRN PRN Reason: SALINE FLUSH Medical Necessity - Tobacco Use Smoking Status: Former smoker Assessment/Plan All Active Problems Influenza A bronchitis (Acute) Cellulitis of leg, right (Acute) Cellulitis of foot, right (Acute) #1 Right lower leg cellulitis-patient will remain on Ancef, continue PT OT, patient's right lower leg will be wrapped with Clyde wrap #2 generalized debility-continue PT and OT #3 MS #4 right ankle pain-etiology unclear, I will do an x-ray of the patient's right ankle #5 essential hypertension Patient does not have influenza Code Visit Inpatient E&M: 48661 Subs Hosp L2
[2019-05-16 20:15] VITALS: BP 145/70; PULSE 82; RESP 18; TEMP 37.2; O2SAT 97
[2019-05-16] MEDS: Atenolol 25 MG Tablet 75 MG PO (21:44)
[2019-05-16] MEDS: Amitriptyline 100 MG Tablet PO (22:45)
[2019-05-16] MEDS: Senna/Docusate Sodium 1 Tablet 2 TABLET PO (23:35)
[2019-05-17 02:15] VITALS: BP 132/63; PULSE 72; RESP 14; TEMP 37.3; O2SAT 95
[2019-05-17] MEDS: Cefazolin 1 GM/50 ML BAG IV (06:15)
[2019-05-17] MEDS: Baclofen 10 MG Tablet 30 MG PO (06:16)
[2019-05-17 08:03] VITALS: O2SAT 95
[2019-05-17 08:05] VITALS: BP 116/54; PULSE 73; RESP 18; TEMP 36.8; O2SAT 94
[2019-05-17] MEDS: guaiFENesin 1,200 MG Tablet 1200 MG PO (11:33)
[2019-05-17] MEDS: Pantoprazole Sodium 20 MG Tablet PO (11:33)
[2019-05-17] MEDS: Bumetanide 2 MG Tablet PO (11:33)
[2019-05-17] MEDS: Atenolol 50 MG Tablet PO (11:34)
--- NOTE | 2019-05-17 12:11 | DCINST_ITS ---
- Discharge Diagnoses Current Active Problems: Current Active and Chronic Problems Cellulitis of leg, right (Acute) Cellulitis of foot, right (Acute) You will use the following diet at home:: No restrictions Your food should be the consistency of: Regular Your liquids should be the consistency of: Regular/Thin Discharge Activity: Return to Normal Activity Weight Bearing Status: Full weight bearing Additional Instructions: take your Bumex as prescribed Allergies/Adverse Reactions: Allergies adhesive Allergy (Verified 05/14/19 18:10) Unknown amlodipine besylate [From Lotrel] Allergy (Verified 05/14/19 18:10) Unknown aspirin Allergy (Verified 05/14/19 18:10) Unknown benazepril HCl [From Lotrel] Allergy (Verified 05/14/19 18:10) Unknown codeine Allergy (Verified 05/14/19 18:10) Unknown latex Allergy (Verified 05/14/19 18:10) Rash Penicillins Allergy (Verified 05/14/19 18:10) Unknown Medications to take at Discharge Amitriptyline HCl [Elavil] 100 mg PO QHS 08/04/14 Atenolol [Tenormin (beta marilee)] 50 mg PO DAILY 08/04/14 Atenolol [Tenormin (beta marilee)] 75 mg PO QHS 08/04/14 Baclofen 30 mg PO TID 08/04/14 Cholecalciferol (Vitamin D3) [Optimal D3] 50,000 unit PO TUTH 08/04/14 Cyanocobalamin [Vitamin B12] 100 mcg IM Q30D 08/04/14 Ibuprofen [Motrin] 400 mg PO DAILY 08/04/14 Omeprazole [Prilosec] 20 mg PO BID 08/04/14 Sumatriptan Succinate [Imitrex] 50 mg PO PRN PRN 09/03/18 traMADol [Ultram] 50 mg PO Q4H PRN PRN 09/03/18 Amantadine [Symmetrel] 100 mg PO BID 09/04/18 Bumetanide 2 mg PO BID 09/04/18 Ocrelizumab [Ocrevus] 300 mg IV Q6M 09/04/18 Guaifenesin [Mucinex] 1,200 mg PO BID #14 tablet 09/05/18 Ondansetron [Ondansetron Odt] 1 tab PO Q4H PRN PRN 05/14/19 Cephalexin [Keflex] 500 mg PO TID #21 cap 05/17/19 Potassium Chloride [Klor-Con M20] 20 meq PO DAILY #1 05/17/19 The following prescriptions were given: Cephalexin [Keflex] 500 mg PO TID #21 cap Transmission Status: Pending to [facility] Potassium Chloride [Klor-Con M20] 20 meq PO DAILY #1 Primary Care Physician: Walt La DO [Primary Care Provider] - Please follow up with your Primary Care Physician in: in one week Test Results: Test results from this visit will be discussed in further detail at your follow- up appointment, if applicable.
[2019-05-17 15:25] VITALS: BP 156/75; PULSE 85; RESP 18; TEMP 37.1; O2SAT 100
--- NOTE | 2019-05-21 13:44 | DS.PCM_ITS ---
Discharge Date and Diagnosis Date of Admission: 05/14/19 Date of Discharge: 05/17/19 - Primary Discharge Diagnosis #1 Right lower leg cellulitis #2 generalized debility #3 MS #4 essential hypertension #5 hypokalemia - Secondary Discharge Diagnosis Chronic Problems Exacerbation of multiple sclerosis (Chronic) Migraine headache (Chronic) Peripheral neuropathy (Chronic) Hospital Course and Treatment Operations: None Procedures: None Summary of Care Provided: The patient is a 63 year old F who was seen in the emergency room with a chief complaint of lower leg swelling and redness-chiefly in the right lower leg and foot. Work-up in the emergency room included labs which revealed a normal white blood cell count, chemistry profile was remarkable for a potassium of 3.1 and a creatinine of 1.1, patient was afebrile. Patient was admitted to [facility], she was given potassium supplementation, she was placed on IV antibiotics, and she was started on Tamiflu due to concerns of influenza. Patient's influenza test also apparently came back negative and it was not felt she had influenza. Patient was seen by PT and OT, she was placed on her home medications which included Bumex. This examiner found out from the patient that she was not taking her Bumex as prescribed and this was likely to have caused her lower leg edema. On 05/17/2019, patient was seen and examined: On examination she appeared in good health and spirits. Vital signs as documented. Skin warm and dry and without overt rashes. Neck without JVD. Lungs clear. Heart exam notable for regular rhythm, normal sounds and absence of murmurs, rubs or gallops. Abdomen unremarkable and without evidence of organomegaly, masses, or abdominal aortic enlargement. Extremities-generalized edema is noted over both lower legs worse on the right, there is redness noted-there is also chronic skin changes noted over both lower legs. Neuro: Cranial nerves II through XII are grossly intact, no focal motor deficits were noted, sensation to light touch and pinprick is intact. Psych: Patient is alert and oriented x3, she does not appear anxious or depressed On 05/17/2019, patient was seen and examined and felt in stable condition for discharge home - Physical Exam Vitals/I&O's: Vital Signs Temp Pulse Resp BP Pulse Ox 98.7 F 85 18 156/75 H 100 05/17/19 15:25 05/17/19 15:25 05/17/19 15:25 05/17/19 15:25 05/17/19 15:25 Oxygen Delivery Method Room Air Weight: 106.3 kg Body Mass Index (BMI) 38.9 Microbiology Past 72 Hours 05/14/19 19:40 Blood Culture (Wb) - Venous Blood Culture - Final No growth in 5 days. 05/14/19 19:40 Blood Culture (Wb) - Anticubital Right Blood Culture - Final No growth in 5 days. Discharge Activity: Return to Normal Activity Weight Bearing Status: Full weight bearing Home Medications: Medications to take at Discharge Amitriptyline HCl [Elavil] 100 mg PO QHS 08/04/14 Atenolol [Tenormin (beta marilee)] 50 mg PO DAILY 08/04/14 Atenolol [Tenormin (beta marilee)] 75 mg PO QHS 08/04/14 Baclofen 30 mg PO TID 08/04/14 Cholecalciferol (Vitamin D3) [Optimal D3] 50,000 unit PO TUTH 08/04/14 Cyanocobalamin [Vitamin B12] 100 mcg IM Q30D 08/04/14 Ibuprofen [Motrin] 400 mg PO DAILY 08/04/14 Omeprazole [Prilosec] 20 mg PO BID 08/04/14 Sumatriptan Succinate [Imitrex] 50 mg PO PRN PRN 09/03/18 traMADol [Ultram] 50 mg PO Q4H PRN PRN 09/03/18 Amantadine [Symmetrel] 100 mg PO BID 09/04/18 Bumetanide 2 mg PO BID 09/04/18 Ocrelizumab [Ocrevus] 300 mg IV Q6M 09/04/18 Guaifenesin [Mucinex] 1,200 mg PO BID #14 tablet 09/05/18 Ondansetron [Ondansetron Odt] 1 tab PO Q4H PRN PRN 05/14/19 Cephalexin [Keflex] 500 mg PO TID #21 cap 05/17/19 Potassium Chloride [Klor-Con M20] 20 meq PO DAILY #1 05/17/19 Following Prescrptions Were Given to Patient: Cephalexin [Keflex] 500 mg PO TID #21 cap Transmission Status: Received by [facility] Potassium Chloride [Klor-Con M20] 20 meq PO DAILY #1 Primary Care Physician: Walt La DO [Primary Care Provider] - Please follow up with your Primary Care Physician in: in one week Disposition: Home Minutes spent on discharge:: 31 Patient Condition:: Stable Medical Necessity - Tobacco Use Smoking Status: Former smoker Meaningful Use Info Meaningful Use Diagnoses (Choose all that apply): None applicable Code Visit Inpatient E&M: [id number] Disch Hosp
== END 2019-05-17 15:36 | disposition home or self-care (01) | DRG 603 ==
LOC: ED 21:11 → ICU 22:13 → MS3 05-17 03:44
PROVIDERS: Admitting Provider Hospitalist; Emergency Provider Emergency Medicine; Family Provider Family Medicine; PCP Family Medicine; Referring Provider Hospitalist; Visit Provider Internal Medicine
DX: L03.115 Cellulitis of right lower limb (principal); G35 Multiple sclerosis; Z23 Encounter for immunization; E87.6 Hypokalemia; E55.9 Vitamin D deficiency, unspecified; E53.8 Deficiency of other specified B group vitamins; R53.81 Other malaise; I10 Essential (primary) hypertension; Z87.891 Personal history of nicotine dependence
CPT/HCPCS: 36415; 71045; 73600; 80048; 80053; 81001; 83605; 85025; 85610; 85730; 87040; 87633; 87804; 93005; 93971; 97116; 97163; 97165; 97530; 97535; 97802; 99285; J7040; J7050; 90686; A4216

== ENCOUNTER 2019-06-06 11:00 | Outpatient (RCR) | payer BC, MEDICARE, SELFPAY ==
[2019-05-14 22:22] VITALS: BMI 38.9
[2019-05-30 10:32] VITALS: BP 110/42; PULSE 66; RESP 16; TEMP 36.6; BMI 38.9
[2019-05-30 11:14] VITALS: BMI 39.3
--- NOTE | 2019-05-30 12:21 | PCM.WC.PN ---
(1) Cellulitis of foot, right Status: Acute Current Visit: Yes Code(s): L03.115 - Cellulitis of right lower limb (2) Cellulitis of leg, right Status: Acute Current Visit: Yes Code(s): L03.115 - Cellulitis of right lower limb (3) Exacerbation of multiple sclerosis Status: Chronic Current Visit: Yes Code(s): G35 - Multiple sclerosis (4) Peripheral neuropathy Status: Chronic Current Visit: Yes Type of Wound Date of Service: 05/30/19 Chief Complaint: Referred here for cellulitis of the right lower leg History of Wound: 63-year-old white female that came to us that has been admitted to the hospital over New Year's for cellulitis on the right lower leg treated for strep on ceftezole Zosyn and vancomycin. Patient states was better but as when she went home on cephalexin orally it started to get worse again and now it is edematous and shiny almost looking like a scalded skin syndrome. She denies fever chills nausea vomiting like she did the first time. Patient does suffer from MS and has a lot of neuropathy pain in her feet and therefore is unable to wear impression stockings. Patient states she has had some seepage but there is been no open wounds noted on any part of the right lower leg Progress of Wound: Right lower leg is edematous warm to touch cobblestoning on texture no open areas noted. Demarcated erythematous line on her right lower leg nothing on the back of her leg noted to be red mostly on the anterior portion it is not circumferential. We will start her on antibiotic therapy and Tubigrip's for compression start her on some gabapentin for her pain and follow-up in 1 week also we will refer her to infectious disease per her request - Physical Exam Vital Signs Temp Pulse Resp BP 97.9 F 66 16 110/42 L 05/30/19 10:32 05/30/19 10:32 05/30/19 10:32 05/30/19 10:32 General: Oriented x3, Cooperative, Well developed HEENT: Atraumatic, PERRLA Oral: Moist Mucosa Neck: Supple, No JVD Lungs: Clear to auscultation, Normal air movement Cardiovascular: Regular rate, Regular Rhythm Abdomen: Bowel Sounds Present, Soft, Non Tender, No Hepato-splenomegaly Extremities: No clubbing, No edema Skin: Rash Present Wound Measurements and Assessment WC - Nurse 1 - General Ulcer Measurement Start: 05/30/19 10:31 Freq: Status: Active Protocol: Activity Type Activity Date Activity User E-Sign Co-Sign Detail Recorded Client Recorded Date Recorded By Document 05/30/19 10:32 [facility] [id number] 05/30/19 11:01 [facility] 05/30/19 10:32 Wound Center Nurse 1 [Edema Assessment] -Lower Limb Edema Present Yes -Right Calf (cm) 52 -Right Ankle (cm) 28.6 -Right Foot (cm) 48 -Left Calf (cm) 27 WC - Nurse 2 - General Ulcer CM Notes Start: 05/30/19 10:31 Freq: Status: Active Protocol: Activity Type Activity Date Activity User E-Sign Co-Sign Detail Recorded Client Recorded Date Recorded By Document 05/30/19 11:25 MW [id number] 05/30/19 11:31 MW 05/30/19 11:25 Pain Scale: 0-10 Numeric [Pain] -Is Patient Pain Free? Yes Musculoskeletal: No Tenderness to Palpation of Joints or Extremities Lymphatic: No Cervical, Supraclavicular, or Inguinal Adenopathy Neurological: Cranial nerves II-XII grossly intact, Neuro grossly intact Psych/Mental Status: Normal Affect, Appropriate Debridement Note Post-Debridement Measurements/Treatment WC - Nurse 2 - General Ulcer CM Notes Start: 05/30/19 10:31 Freq: Status: Active Protocol: Activity Type Activity Date Activity User E-Sign Co-Sign Detail Recorded Client Recorded Date Recorded By Document 05/30/19 11:25 MW [id number] 05/30/19 11:31 MW 05/30/19 11:25 Pain Scale: 0-10 Numeric Is Patient Pain Free? Yes No debridement was completed today Assessment/Plan Active Problems Exacerbation of multiple sclerosis (Chronic) Peripheral neuropathy (Chronic) Cellulitis of leg, right (Acute) Cellulitis of foot, right (Acute) Assessment: Cellulitis right lower leg. edema right lower leg. MS. Neuropathy feet and lower extremities Plan: Wash legs with Hibiclens from knee down on the right lower leg no baths. Double layer Tubigrip to the right lower leg if seeping then use gauze dressings to protect skin. Take Bactrim DS 1 p.o. twice daily for 14 days. Follow-up in 1 week
[2019-06-06 11:09] VITALS: BP 139/50; PULSE 72; RESP 16; TEMP 36.3; BMI 39.3
--- NOTE | 2019-06-06 12:43 | PN.PCM_ITS ---
(1) Cellulitis of foot, right Status: Acute Current Visit: Yes Code(s): L03.115 - Cellulitis of right lower limb (2) Cellulitis of leg, right Status: Acute Current Visit: Yes Code(s): L03.115 - Cellulitis of right lower limb (3) Exacerbation of multiple sclerosis Status: Chronic Current Visit: Yes Code(s): G35 - Multiple sclerosis (4) Peripheral neuropathy Status: Chronic Current Visit: Yes Type of Wound Date of Service: 06/06/19 Chief Complaint: Referred here for cellulitis of the right lower leg History of Wound: 63-year-old white female that came to us that has been admitted to the hospital over New Year's for cellulitis on the right lower leg treated for strep on ceftezole Zosyn and vancomycin. Patient states was better but as when she went home on cephalexin orally it started to get worse again and now it is edematous and shiny almost looking like a scalded skin syndrome. She denies fever chills nausea vomiting like she did the first time. Patient does suffer from MS and has a lot of neuropathy pain in her feet and therefore is unable to wear impression stockings. Patient states she has had some seepage but there is been no open wounds noted on any part of the right lower leg Progress of Wound: Patient tolerated the Bactrim DS very well and is finishing it up. The leg is no longer very red or painful swelling is down patient is tolerant of her compression now only complaining of very dry skin where the cellulitis was. Patient will be discharged from the wound center and follow-up as needed - Physical Exam Vital Signs Temp Pulse Resp BP 97.4 F L 72 16 139/50 H 06/06/19 11:09 06/06/19 11:09 06/06/19 11:09 06/06/19 11:09 General: Oriented x3, Cooperative, Well developed HEENT: Atraumatic, PERRLA Oral: Moist Mucosa Neck: Supple, No JVD Lungs: Clear to auscultation, Normal air movement Cardiovascular: Regular rate, Regular Rhythm Abdomen: Bowel Sounds Present, Soft, Non Tender, No Hepato-splenomegaly Extremities: No clubbing, No edema Wound Measurements and Assessment WC - Nurse 1 - General Ulcer Measurement Start: 05/30/19 10:31 Freq: Status: Active Protocol: Activity Type Activity Date Activity User E-Sign Co-Sign Detail Recorded Client Recorded Date Recorded By Document 06/06/19 11:09 [facility] [id number] 06/06/19 11:12 [facility] 06/06/19 11:09 Wound Center Nurse 1 [Edema Assessment] -Lower Limb Edema Present Yes -Right Calf (cm) 49.5 -Right Ankle (cm) 27.1 WC - Nurse 2 - General Ulcer CM Notes Start: 05/30/19 10:31 Freq: Status: Active Protocol: Activity Type Activity Date Activity User E-Sign Co-Sign Detail Recorded Client Recorded Date Recorded By Document 06/06/19 11:25 MW [id number] 06/06/19 11:28 MW 06/06/19 11:25 Pain Scale: 0-10 Numeric [Pain] -Is Patient Pain Free? Yes Musculoskeletal: No Tenderness to Palpation of Joints or Extremities Lymphatic: No Cervical, Supraclavicular, or Inguinal Adenopathy Neurological: Cranial nerves II-XII grossly intact, Neuro grossly intact Psych/Mental Status: Normal Affect, Appropriate Debridement Note Post-Debridement Measurements/Treatment WC - Nurse 2 - General Ulcer CM Notes Start: 05/30/19 10:31 Freq: Status: Active Protocol: Activity Type Activity Date Activity User E-Sign Co-Sign Detail Recorded Client Recorded Date Recorded By Document 05/30/19 11:25 MW [id number] 05/30/19 11:31 MW Document 06/06/19 11:25 MW [id number] 06/06/19 11:28 MW 05/30/19 06/06/19 11:25 11:25 Pain Scale: 0-10 Numeric Is Patient Pain Free? Yes Yes No debridement was completed today Assessment/Plan Active Problems Exacerbation of multiple sclerosis (Chronic) Peripheral neuropathy (Chronic) Cellulitis of leg, right (Acute) Cellulitis of foot, right (Acute) Assessment: Cellulitis right lower leg resolved. edema right lower leg resolved. MS. Neuropathy feet and lower extremities Plan: Discharge from the wound center follow-up as needed. Patient is to continue the compression with the Tubigrip's may use Clyde wraps over top. Suggested go buying her own compression stockings after she squeezes her legs for another week or 2. Use AmLactin cream to her dry skin on her lower leg and feet follow-up as needed
== END 2019-06-15 23:59 ==
LOC: WC 11:00
PROVIDERS: Family Provider Family Medicine; PCP Family Medicine; Visit Provider Nurse Practitioner
DX: L03.115 Cellulitis of right lower limb (principal); G35 Multiple sclerosis; G62.9 Polyneuropathy, unspecified
CPT/HCPCS: 99213; G0463

== ENCOUNTER → 2019-09-28 12:25 | Outpatient (CLI) | payer BC, MEDICARE, SELFPAY ==
[2019-09-28 15:50] LABS: Absolute Lymphocyte Count 1.03 X10^3/uL (0.83-4.51); Absolute Neutrophil Count 3.5 X10^3/uL (2.0-7.7); Basophil# 0.04 X10^3/uL; Basophil% 0.7 % (0-1); Eosinophil# 0.15 X10^3/uL; Eosinophils% 2.8 % (0-5); Hematocrit 39.8 % (37-47); Hemoglobin 12.8 g/dL (12.0-15.0); Lymphocyte # 1.03 X10^3/ul (4.0); Mean Corp Hgb Conc 32.2 g/dL (32-36); Mean Corpuscular Hgb 30.7 pg (27.0-32.0); Mean Corpuscular Volume 95.4 fL (81-99); Mean Platelet Vol. 11.5 fl (6.2-12.0); Monocyte# 0.69 X10^3/uL; Monocyte% 12.7 % (0-10); NRBC Flagged by Analyzer 0 % (0-5); Neutrophil # 3.49 X10^3/uL (2.7-7.7); Neutrophil % 64.4 % (47-70); Platelet Count 155 K/mm3 (150-450); RBC Distribution Width CV 13.8 % (11.6-14.6); RBC Distribution Width SD 48.6 fl (35.1-43.9); Red Blood Count 4.17 M/mm3 (4.2-5.4); White Blood Count 5.4 K/mm3 (4.4-11.0)
== END ==
LOC: MTLAB 12:27
PROVIDERS: PCP Family Medicine; Referring Provider Internal Medicine; Visit Provider Internal Medicine
DX: Z79.899 Other long term (current) drug therapy (principal)
CPT/HCPCS: 36415; 85025

== ENCOUNTER → 2019-10-24 14:15 | Outpatient (CLI) | payer BC, MEDICARE, SELFPAY ==
[2019-10-24 18:02] LABS: Absolute Neutrophil Count 3.5 X10^3/uL (2.0-7.7); Basophil# 0.06 X10^3/uL; Basophil% 1.3 % (0-1); Eosinophil# 0.11 X10^3/uL; Eosinophils% 2.3 % (0-5); Hemoglobin 13.1 g/dL (12.0-15.0); Lymphocyte % 10.6 % (19-41); Mean Corpuscular Hgb 31.4 pg (27.0-32.0); Mean Corpuscular Volume 98.3 fL (81-99); Mean Platelet Vol. 11.7 fl (6.2-12.0); Monocyte% 10.6 % (0-10); NRBC Flagged by Analyzer 0 % (0-5); Neutrophil % 74.6 % (47-70); POSITIVE DIFFERENTIAL YES; Platelet Count 191 K/mm3 (150-450); RBC Distribution Width CV 13.5 % (11.6-14.6); Red Blood Count 4.17 M/mm3 (4.2-5.4); White Blood Count 4.7 K/mm3 (4.4-11.0)
[2019-10-24 18:26] LABS: Differential Indicated SCAN CRITERIA MET; Erythrocyte Sedimentation Rate 20 mm/hr (0-30)
[2019-10-24 18:32] LABS: Vitamin B12 455 pg/mL (211-911); Vitamin D,25 Hydroxy 58.5 ng/mL
[2019-10-24 18:46] LABS: ALB/GLOB Ratio 0.9 RATIO (0.9-2.4); AST(SGOT) 30 U/L (15-37); Alanine Aminotransfer ALT/SGPT 38 U/L (13-56); Albumin, Serum 3.7 g/dL (3.2-5.0); Alkaline Phosphatase 144 U/L (45-117); Anion Gap 11 (5-15); BUN 18 mg/dL (7-18); BUN/Creat Ratio 17.6 RATIO (10-20); Calcium,Total 9.1 mg/dL (8.5-10.1); Chloride 103 mmol/L (98-107); Cholesterol 221 mg/dL (200); Creatinine, Serum 1.02 mg/dL (0.55-1.02); EST Glomerular Filtration Rate 58 mL/min (>60); Est Glom Filt Rate - Afr Amer 70 mL/min (>60); Globulin 3.9 g/dL (2.2-4.2); Glucose 75 mg/dL (74-106); High Density Lipoprotein 72 mg/dL; Potassium 3.2 mmol/L (3.5-5.1); Protein, Total 7.6 g/dL (6.4-8.2); Rheumatoid Factor < 10.0 IU/mL (<15); Sodium Level 141 mmol/L (136-145); T4 Free Direct 1.01 ng/dL (0.76-1.46); Thyroid Stim Hormone (TSH) 1.07 uIU/mL (0.358-3.74); Triglycerides 87 mg/dL; Very Low Density Lipoprotein 17 mg/dL (5-40)
[2019-10-24 19:13] LABS: Platelet Estimate ADEQUATE (ADEQ); Red Cell Morphology NORM C+C NORMAL (NORM C&C)
[2019-10-26 13:17] LABS: ANTINUCLEAR ANTIBODIES DIRECT Negative (Negative)
[2019-10-27 11:10] LABS: CCP IgG Antibodies 13 units (0-19)
== END ==
PROVIDERS: PCP Family Medicine; Referring Provider Family Medicine; Visit Provider Family Medicine
DX: Z00.00 Encounter for general adult medical examination without abnormal findings (principal); G62.9 Polyneuropathy, unspecified; E55.9 Vitamin D deficiency, unspecified; E53.8 Deficiency of other specified B group vitamins; R79.89 Other specified abnormal findings of blood chemistry; R76.8 Other specified abnormal immunological findings in serum
CPT/HCPCS: 36415; 80053; 80061; 82306; 82607; 84439; 84443; 85025; 85652; 86038; 86140; 86200; 86225; 86235; 86431

== ENCOUNTER → 2019-11-06 15:31 | Outpatient (CLI) | payer BC, MEDICARE, SELFPAY ==
--- NOTE | 2019-11-06 15:33 | BI_ITS ---
MAMMOGRAPHY - BILATERAL SCREENING 3-D TOMOSYNTHESIS REASON FOR EXAM: Female, 63 years old. Routine screening PERTINENT HISTORY: FAM HX MOTHER AGE 50S -- GAINED 20# -- LT BX MULU 1995(-)PT HAS MS CURR CHEMO. TECHNIQUE: 2-D mammograms and 3-D Tomosynthesis of the breast (s) were performed. CAD was performed. COMPARISON: 08/01/2017 FINDINGS: The breast composition is heterogeneously dense that can obscure small breast masses. Scattered benign calcifications are seen. No dense spiculated masses or suspicious microcalcifications are identified. No architectural distortion is identified. There is no skin thickening or retraction. There has been no significant change since the prior study. BI/SCREEN MAMM (CAD) W/CASIMIRO BILAT IMPRESSION: No mammographic signs of malignancy. Routine yearly mammograms recommended. ASSESSMENT CATEGORY: BIRADS Category 2: Benign. A letter regarding these results will be sent to the patient by the facility within 30 days. FOLLOW UP RECOMMENDATION: Yearly follow up mammogram recommended. (A) Approximately 10% of breast cancers are not detected by mammography. A normal mammogram should not delay biopsy of a clinically suspicious abnormality. Electronically Signed: Roger Tan MD at 7:50 EDT , Service support ,
--- NOTE | 2019-11-06 15:52 | BD_ITS ---
STUDY: DUAL ENERGY X-RAY ABSORPTIOMETRY / DXA REASON FOR EXAM: Female, 63 years old. 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 COMPARISON: Comparison is made with prior study dated August 02, 2017. FINDINGS: Lumbar Spine (L1-L4): g/cm2 (1.129) / T-score (-0.3) / Z-score (1.1) Findings are suggestive of normal bone density with a low fracture risk. Left Femur Total: g/cm2 (0.844) / T-score (-1.3) / Z-score (-0.2) Left Femoral Neck: g/cm2 (0.837) / T-score (-1.4) / Z-score (-0.1) Right Femur Total: g/cm2 (0.737) / T-score (-2.1) / Z-score (-1.1) Right Femoral Neck: g/cm2 (0.801) / T-score (-1.7) / Z-score (-0.3) The T-Scores on the most recent prior examination were: Lumbar Spine (L1-L4): There has been worsening of bone density since the previous examination. Left Femur Total: which represents an improvement of 5.6%. Right Femur Total: which represents a worsening of 1.2%. BD/Dexa Bone Density Study IMPRESSION: The patient is considered osteopenic as outlined below according to World Marshall Organization (WHO) criteria with a moderate fracture risk. There has been worsening of bone density since the previous examination. Reference Information: The T-score is the number of standard deviations above or below the standard which is normal for young adults at their peak bone mineral density. The World Health Organization (WHO) interprets the T-scores as follows: Above -1 Normal bone density Between -1 and -2.5 Osteopenia Equal to / or below -2.5 Osteoporosis As a practical clinical guideline, osteopenia may be graded as follows: Mild -1 through -1.5 Moderate -1.6 through -2.0 Severe -2.1 through -2.4 The Z-score is the number of standard deviations above or below age-matched controls. A Z-score of less than -1.5 would be considered abnormal. References: 1. NIH Osteoporosis and Related Bone Diseases http://www.osteo.org 2. International Society for Clinical Densitometry http://www.iscd.org 3. National Osteoporosis Foundation http://www.nof.org Electronically Signed: Feroz Nowak, at 10:58 EDT , Service support ,
== END ==
PROVIDERS: PCP Family Medicine; Referring Provider Family Medicine; Visit Provider Family Medicine
DX: Z12.31 Encounter for screening mammogram for malignant neoplasm of breast (principal); M81.0 Age-related osteoporosis without current pathological fracture
CPT/HCPCS: 77063; 77067; 77080

== ENCOUNTER → 2020-03-20 13:08 | Outpatient (CLI) | payer BC, MEDICARE, SELFPAY ==
[2020-03-20 15:23] LABS: Absolute Lymphocyte Count 0.73 X10^3/uL (0.83-4.51); Basophil# 0.06 X10^3/uL; Basophil% 1.1 % (0-1); Eosinophil# 0.12 X10^3/uL; Eosinophils% 2.2 % (0-5); Hematocrit 41.8 % (37-47); Hemoglobin 13.3 g/dL (12.0-15.0); Lymphocyte # 0.73 X10^3/ul (4.0); Lymphocyte % 13.1 % (19-41); Mean Corp Hgb Conc 31.8 g/dL (32-36); Mean Corpuscular Hgb 30.9 pg (27.0-32.0); Mean Platelet Vol. 11.7 fl (6.2-12.0); Monocyte# 0.63 X10^3/uL; Monocyte% 11.3 % (0-10); NRBC Flagged by Analyzer 0 % (0-5); Neutrophil # 4.02 X10^3/uL (2.7-7.7); Neutrophil % 71.9 % (47-70); Platelet Count 180 K/mm3 (150-450); RBC Distribution Width CV 13.5 % (11.6-14.6); RBC Distribution Width SD 48.4 fl (35.1-43.9); Red Blood Count 4.31 M/mm3 (4.2-5.4); White Blood Count 5.6 K/mm3 (4.4-11.0)
[2020-03-20 16:25] LABS: ALB/GLOB Ratio 0.9 RATIO (0.9-2.4); AST(SGOT) 31 U/L (15-37); Alanine Aminotransfer ALT/SGPT 42 U/L (13-56); Albumin, Serum 3.7 g/dL (3.2-5.0); Alkaline Phosphatase 169 U/L (45-117); Anion Gap 9 (5-15); BUN 14 mg/dL (7-18); BUN/Creat Ratio 13.6 RATIO (10-20); Calcium,Total 8.9 mg/dL (8.5-10.1); Chloride 105 mmol/L (98-107); Creatinine, Serum 1.03 mg/dL (0.55-1.02); EST Glomerular Filtration Rate 58 mL/min (>60); Est Glom Filt Rate - Afr Amer 70 mL/min (>60); Globulin 3.9 g/dL (2.2-4.2); Glucose 83 mg/dL (74-106); Potassium 3.7 mmol/L (3.5-5.1); Protein, Total 7.6 g/dL (6.4-8.2); Sodium Level 142 mmol/L (136-145)
== END ==
PROVIDERS: PCP Family Medicine
DX: Z79.899 Other long term (current) drug therapy (principal)
CPT/HCPCS: 36415; 80053; 85025

== ENCOUNTER → 2020-04-22 14:21 | Outpatient (CLI) | payer BC, MEDICARE, SELFPAY ==
[2020-04-22 18:09] LABS: Absolute Lymphocyte Count 0.83 X10^3/uL (0.83-4.51); Absolute Neutrophil Count 4.4 X10^3/uL (2.0-7.7); Basophil# 0.06 X10^3/uL; Eosinophil# 0.15 X10^3/uL; Eosinophils% 2.5 % (0-5); Hematocrit 41.3 % (37-47); Hemoglobin 13.4 g/dL (12.0-15.0); Lymphocyte # 0.83 X10^3/ul (4.0); Lymphocyte % 13.8 % (19-41); Mean Corp Hgb Conc 32.4 g/dL (32-36); Mean Corpuscular Hgb 31.4 pg (27.0-32.0); Mean Corpuscular Volume 96.7 fL (81-99); Mean Platelet Vol. 11.9 fl (6.2-12.0); Monocyte# 0.59 X10^3/uL; Monocyte% 9.8 % (0-10); NRBC Flagged by Analyzer 0 % (0-5); Neutrophil # 4.36 X10^3/uL (2.7-7.7); Neutrophil % 72.6 % (47-70); Platelet Count 183 K/mm3 (150-450); RBC Distribution Width CV 13.6 % (11.6-14.6); Red Blood Count 4.27 M/mm3 (4.2-5.4)
[2020-04-22 18:36] LABS: ALB/GLOB Ratio 1.1 RATIO (0.9-2.4); AST(SGOT) 24 U/L (15-37); Alanine Aminotransfer ALT/SGPT 38 U/L (13-56); Albumin, Serum 3.9 g/dL (3.2-5.0); Alkaline Phosphatase 170 U/L (45-117); Anion Gap 8 (5-15); BUN 15 mg/dL (7-18); BUN/Creat Ratio 16.1 RATIO (10-20); Calcium,Total 9.3 mg/dL (8.5-10.1); Chloride 105 mmol/L (98-107); Creatinine, Serum 0.93 mg/dL (0.55-1.02); EST Glomerular Filtration Rate 64 mL/min (>60); Est Glom Filt Rate - Afr Amer 78 mL/min (>60); Globulin 3.5 g/dL (2.2-4.2); Glucose 93 mg/dL (74-106); Potassium 3.5 mmol/L (3.5-5.1); Protein, Total 7.4 g/dL (6.4-8.2); Sodium Level 141 mmol/L (136-145)
[2020-04-26 08:08] LABS: Immunoglobulin A 165 mg/dL (87-352); Immunoglobulin G 1000 mg/dL (586-1602)
[2020-04-26 15:49] LABS: Immunoglobulin E 6 IU/mL (6-495); Immunoglobulin M 16 mg/dL (26-217)
== END ==
PROVIDERS: PCP Family Medicine
DX: D72.810 Lymphocytopenia (principal); Z79.899 Other long term (current) drug therapy
CPT/HCPCS: 36415; 80053; 82784; 82785; 85025

== ENCOUNTER → 2020-07-02 10:51 | Outpatient (CLI) | payer BC, MEDICARE, SELFPAY ==
[2020-07-02 13:16] LABS: GGTP 17 U/L (5-55)
[2020-07-03 20:10] LABS: Alkaline Phosphatase, Serum 135 IU/L (39-117); Bone Fraction 40 % (14-68); Liver Fraction 53 % (18-85)
[2020-07-04 11:26] LABS: Intestinal Fraction 8 % (0-18)
== END ==
PROVIDERS: PCP Family Medicine; Referring Provider Family Medicine; Visit Provider Family Medicine
DX: R74.8 Abnormal levels of other serum enzymes (principal); E55.9 Vitamin D deficiency, unspecified
CPT/HCPCS: 36415; 82306; 82977; 84075; 84080

== ENCOUNTER → 2020-07-14 09:34 | Outpatient (CLI) | payer BC, MEDICARE, SELFPAY | PROVIDERS: PCP Family Medicine; Visit Provider Family Medicine | DX: Z20.828 Contact with and (suspected) exposure to other viral communicable diseases (principal) | CPT/HCPCS: 87635; U0005; U0003 ==

== ENCOUNTER 2020-07-17 12:12 | Outpatient (CLI) | payer BC, MEDICARE, SELFPAY ==
[2020-07-17 12:35] VITALS: BP 112/54; PULSE 65; RESP 16; TEMP 37.2; O2SAT 96; BMI 39.2
[2020-07-17 13:13] VITALS: BP 117/59; PULSE 63; RESP 16; TEMP 36.8; O2SAT 99
[2020-07-17 13:43] VITALS: BP 135/65; PULSE 56; RESP 16; TEMP 36.9; O2SAT 99
[2020-07-17 14:13] VITALS: BP 126/60; PULSE 59; RESP 18; TEMP 36.8; O2SAT 97
[2020-07-17 14:43] VITALS: BP 125/62; PULSE 57; RESP 16; TEMP 36.7; O2SAT 98
== END 2020-07-17 14:52 | disposition home or self-care (01) ==
LOC: MS2OUT 12:12 → MS2 12:13
PROVIDERS: PCP Family Medicine; Referring Provider Nurse Practitioner Acute Care; Visit Provider Nurse Practitioner Acute Care
DX: U07.1 COVID-19 (principal)
CPT/HCPCS: J7050; M0239; Q0245

== ENCOUNTER → 2020-10-06 15:08 | Outpatient (CLI) | payer BC, MEDICARE, SELFPAY ==
--- NOTE | 2020-10-06 15:25 | MRI_ITS ---
STUDY: MRI BRAIN WITH AND WITHOUT CONTRAST REASON FOR EXAM: Female, 64 years old. MS TECHNIQUE: Standardized multiplanar fat and water weighted pulse sequences were obtained. IV 20cc dotarem was administered for the contrast portion of the examination. COMPARISON: 04/11/2018 FINDINGS: Normal size of the ventricles and extra-axial spaces for the patient''s age. No change in the punctate areas of hyperintensity within the periventricular and subcortical white matter consistent with known demyelinating disease (multiple sclerosis). Some intensities may be secondary to microangiopathic gliosis from chronic hypertension or metabolic disease. Nevertheless, findings are unchanged. No contrast-enhancing plaque. There is no evidence for recent intracranial ischemia or other cause of cytotoxic edema on diffusion weighted imaging (DWI). Normal T2* images of the brain without demonstrated susceptibility artifact. There is no demonstrated hemosiderin stain. Normal bilateral basal ganglia. Normal thalami. There is no extra-axial fluid accumulation. Normal flow voids within the major intracranial circulation suggesting patency by spin echo criteria. Normal venous enhancement. There is no enhancing intra-axial or extra-axial abnormality. Normal sella turcica, pituitary gland, infundibular stalk, optic chiasm and hypothalamus. Normal tectal plate and pineal gland. Normal midbrain, kate and medulla. Normal cerebellum. Normal basal cisterns. Normal bilateral temporal bones. Normal bilateral internal auditory canals. No demonstrated orbital abnormality, within the constraints of a routine brain study. No change in the mucous retention cyst or polyp along the anterior wall the left maxillary sinus. Normal calvarium and skull base. Normal visualized soft tissue structures. Normal visualized upper cervical spine. MRI/Brain W/WO Contrast IMPRESSION: No change from 04/11/2018. Electronically Signed: James Elaine MD at 11:02 EDT Tel , Service support ,
--- NOTE | 2020-10-06 15:25 | MRI_ITS ---
STUDY: MRI CERVICAL SPINE WITH AND WITHOUT CONTRAST REASON FOR EXAM: Female, 64 years old. MS TECHNIQUE: Standardized fat and water weighted pulse sequences were obtained in the sagittal and axial following administration of 10 mL of Gadavist. COMPARISON: 04/11/2018 FINDINGS: Normal foramen magnum and brainstem-cervical cord junction. Normal craniovertebral junction. Normal anterior atlantoaxial articulation. Normal odontoid process. Normal cervical lordosis. Normal vertebral bodies and posterior osseous elements. C2-3: Normal endplates. Normal disc height, signal and morphology. Normal central canal and intervertebral neural foramina. C3-4: No change in the mild broad disc osteophyte complex which produces mild spinal stenosis and mild bilateral neural foraminal stenosis. C4-5: Normal endplates. Normal disc height, signal and morphology. Normal central canal and intervertebral neural foramina. C5-6: Normal endplates. Normal disc height, signal and morphology. Normal central canal and intervertebral neural foramina. C6-7: Normal endplates. Normal disc height, signal and morphology. Normal central canal and intervertebral neural foramina. C7-T1: Normal endplates. Normal disc height, signal and morphology. Normal central canal and intervertebral neural foramina. Normal cervical cord. There is no demonstrated cervical cord demyelinating process. Normal visualized soft tissue structures. MRI/Spine Cervical W/WO Contrast IMPRESSION: 1. No MR evidence of demyelinating disease (multiple sclerosis). 2. No change in mild focal degenerative disc disease at C3/C4. Electronically Signed: James Elaine MD at 15:55 EDT Tel , Service support ,
[2020-10-06 15:50] LABS: Absolute Lymphocyte Count 0.88 X10^3/uL (0.83-4.51); Absolute Neutrophil Count 4.8 X10^3/uL (2.0-7.7); Basophil# 0.06 X10^3/uL; Basophil% 0.9 % (0-1); Eosinophil# 0.12 X10^3/uL; Eosinophils% 1.9 % (0-5); Hematocrit 41.8 % (37-47); Hemoglobin 13.8 g/dL (12.0-15.0); Lymphocyte # 0.88 X10^3/ul (0.83-4.51); Lymphocyte % 13.7 % (19-41); Mean Corpuscular Hgb 31.7 pg (27.0-32.0); Mean Corpuscular Volume 95.9 fL (81-99); Mean Platelet Vol. 11.7 fl (6.2-12.0); Monocyte# 0.55 X10^3/uL; Monocyte% 8.6 % (0-10); NRBC Flagged by Analyzer 0 % (0-5); Neutrophil % 74.6 % (47-70); Platelet Count 175 K/mm3 (150-450); RBC Distribution Width CV 13.2 % (11.6-14.6); RBC Distribution Width SD 47.5 fl (35.1-43.9); Red Blood Count 4.36 M/mm3 (4.2-5.4); White Blood Count 6.4 K/mm3 (4.4-11.0)
[2020-10-06 16:00] LABS: AST(SGOT) 23 U/L (15-37); Alanine Aminotransfer ALT/SGPT 29 U/L (13-56); Alkaline Phosphatase 154 U/L (45-117); Anion Gap 8 (5-15); BUN 19 mg/dL (7-18); BUN/Creat Ratio 16.8 RATIO (10-20); Chloride 105 mmol/L (98-107); Creatinine, Serum 1.13 mg/dL (0.55-1.02); EST Glomerular Filtration Rate 52 mL/min (>60); Est Glom Filt Rate - Afr Amer 62 mL/min (>60); Globulin 3.9 g/dL (2.2-4.2); Glucose 124 mg/dL (74-106); Potassium 3.3 mmol/L (3.5-5.1); Protein, Total 7.9 g/dL (6.4-8.2); Sodium Level 140 mmol/L (136-145)
[2020-10-08 05:07] LABS: Immunoglobulin A 155 mg/dL (87-352); Immunoglobulin G 1048 mg/dL (586-1602)
[2020-10-08 13:35] LABS: Immunoglobulin M 31 mg/dL (26-217)
== END ==
PROVIDERS: PCP Family Medicine
DX: G35 Multiple sclerosis (principal); Z79.899 Other long term (current) drug therapy
CPT/HCPCS: 36415; 70553; 72156; 80053; 82784; 85025; A9575

== ENCOUNTER 2020-12-12 13:52 | Emergency (ER) | payer BC, MEDICARE, SELFPAY ==
[2020-12-12 13:52] VITALS: BP 138/71; PULSE 72; RESP 18; TEMP 36.3; O2SAT 98; BMI 39.8
--- NOTE | 2020-12-12 14:02 | RAD_ITS ---
STUDY: X-RAY - LEFT FOOT CLINICAL: Female, 65 years old. injury TECHNIQUE: 3 view(s) of the foot. COMPARISON: None. FINDINGS: Normal talus, calcaneus, and tarsal bones. Normal visualized subtalar, talonavicular, calcaneocuboid, tarsal and tarsometatarsal articulations. Normal metatarsi. Normal metatarsophalangeal joint of the great toe. Normal tibial and fibular sesamoid bones. Normal interphalangeal joint of the great toe. Normal phalanges of the great toe. Normal second through fifth metatarsophalangeal joints. Normal interphalangeal joints and phalanges of the lesser toes. The soft tissue structures are unremarkable. RAD/Foot min 3 Views IMPRESSION: Normal x-ray examination of the foot. Electronically Signed: James Elaine MD at 14:38 EDT Tel , Service support ,
--- NOTE | 2020-12-12 14:10 | RAD_ITS ---
STUDY: X-RAY - LEFT ANKLE REASON FOR EXAM: Female, 65 years old. injury TECHNIQUE: 3 view(s) of the ankle. COMPARISON: None. FINDINGS: Suspect healed fracture of the distal fibula. Normal medial and lateral malleoli. Normal tibiotalar articulation and ankle mortise. Normal visualized talus and calcaneus. The visualized subtalar, talonavicular, calcaneocuboid and tarsal articulations are normal. Lateral soft tissue swelling consistent with ligamentous injury. RAD/Ankle min 3 Views IMPRESSION: No acute fracture or dislocation. Lateral soft tissue swelling consistent with ligamentous injury. Electronically Signed: James Elaine MD at 14:37 EDT Tel , Service support ,
--- NOTE | 2020-12-12 14:47 | EDS_ITS ---
HPI History of Present Illness Chief Complaint: Lower Extremity Injury Informant: patient Occured/Mechanism Mechanism/Context: Yes same level fall Onset/Context/Timing Onset: Yesterday Context: Gradual Onset Current Severity: Mild Maximum Severity: Moderate Narrative Narrative: Patient present secondary left foot and ankle pain. Patient states she was coming in her home last evening when her knees gave out on her and she fell. She does wear a brace on her left ankle which did not allow her ankle to flex. She fell and developed onset of pain to the left foot and ankle. She states was able to ambulate last night when attempting to walk this morning had severe pain. She called her orthopedic surgeon in [place] who recommended she come to the emergency room. [facility] Medical History (Updated 12/12/20 @ 16:[address] Roseline Rosa MD) COVID-19 Migraine headache Multiple sclerosis Peripheral neuropathy Home Medications amitriptyline 100 mg PO QHS 08/04/14 [History Last Taken 09/03/18] atenolol 50 mg PO DAILY 08/04/14 [History Last Taken 09/03/18] atenolol 75 mg PO QHS 08/04/14 [History Last Taken 09/03/18] baclofen 30 mg PO TID 08/04/14 [History Last Taken 09/03/18] cholecalciferol (vitamin D3) 50,000 unit PO TUTH 08/04/14 [History Last Taken 09/03/18] cyanocobalamin (vitamin B-12) 100 mcg IM Q30D 08/04/14 [History Last Taken 09/03/18] ibuprofen 400 mg PO DAILY 08/04/14 [History Last Taken 09/03/18] omeprazole 20 mg PO BID 08/04/14 [History Last Taken 09/03/18] sumatriptan succinate 50 mg PO PRN PRN 09/03/18 [History Last Taken Unknown] tramadol 50 mg PO Q4H PRN PRN 09/03/18 [History Last Taken Unknown] amantadine HCl 100 mg PO BID 09/04/18 [History Last Taken Unknown] bumetanide 2 mg PO BID 09/04/18 [History Last Taken Unknown] ocrelizumab 300 mg IV Q6M 09/04/18 [History Last Taken Unknown] ondansetron 1 tab PO Q4H PRN PRN 05/14/19 [History Last Taken Unknown] potassium chloride 20 meq PO DAILY #1 05/17/19 [Rx Last Taken Unknown] prednisone 5 mg tablet 5 mg PO DAILY PRN 07/16/20 [History Last Taken Unknown] dexamethasone 6 mg PO DAILY 07/17/20 [History Last Taken Unknown] guaifenesin 1,200 mg PO BID PRN 07/17/20 [History Last Taken Unknown] Allergy/AdvReac Type Severity Reaction Status Date / Time adhesive Allergy Unknown Verified 12/12/20 13:55 amlodipine besylate Allergy Unknown Verified 12/12/20 13:55 [From Lotrel] aspirin Allergy Unknown Verified 12/12/20 13:55 benazepril HCl [From Lotrel] Allergy Unknown Verified 12/12/20 13:55 codeine Allergy Unknown Verified 12/12/20 13:55 latex Allergy Rash Verified 12/12/20 13:55 Penicillins Allergy Unknown Verified 12/12/20 13:55 Social History Smoking Status: Never smoker ROS ROS ED Constitutional Constitutional ED: Denies chills or fever(s) Eyes Eyes: Denies change in vision ENT ENT ED: Denies sore throat Cardiovascular Cardiovascular: Denies chest pain Respiratory/Chest Respiratory/Chest: Denies cough or dyspnea Gastrointestinal Gastrointestinal: Denies abdominal pain, diarrhea, nausea or vomiting Genitourinary Genitourinary ED: Reports dysuria Musculoskeletal Musculoskeletal: Reports arthralgias; Denies back pain Integumentary Denies rash Neurologic Neurologic: Denies headache(s) or weakness Psychiatric Psychiatric: Denies anxiety or depression Endocrine Endocrinology: Denies polydipsia or polyuria Allergic/Immunologic Allergic/Immunologic ED: Denies urticaria EXAM Physical Exam Const Vital Signs: 12/12/20 13:52 12/12/20 15:00 Temperature 97.3 F L Temperature Source Temporal Pulse Rate 72 91 Respiratory Rate 18 22 H Blood Pressure 138/71 H Blood Pressure Mean 93 Pulse Ox 98 96 Oxygen Delivery Method Room Air Positive well nourished and well developed General Appearance ED: well developed HEENT Reports normocephalic and head/scalp atraumatic Eyes PERRL and EOMs intact bilaterally Neck supple Chest Wall inspection of chest normal and palpation of chest normal Resp normal respiratory effort and clear to auscultation bilaterally Cardio regular rate and regular rhythm GI normal to inspection, nondistended, normoactive bowel sounds Palpation: soft Extremity Extremity Narrative: Edema and tenderness of the patient of the lateral malleolus of the left ankle. No focal tenderness over the foot. Strong distal pulses. No tenderness at the knee or proximal fibula. Neuro oriented x3 and no sensory deficits noted Sensorium / Orientation: alert Motor Exam: strength 5/5 throughout Psych mental status grossly normal Skin no rashes or lesions noted MDM MDM MDM Narrative Medical decision making narrative: Left foot and ankle x-rays were obtained per nursing protocol. Radiography Diagnostic Testing: Radiology Impression Foot X-Ray 12/12/20 14:02 IMPRESSION: Normal x-ray examination of the foot. Electronically Signed: James Elaine MD at 14:38 EDT Tel , Service support , Ankle X-Ray 12/12/20 14:10 IMPRESSION: No acute fracture or dislocation. Lateral soft tissue swelling consistent with ligamentous injury. Electronically Signed: James Elaine MD at 14:37 EDT Tel , Service support , Treatment and Re-Evaluation Comments:: No acute fracture noted per my interpretation of left foot and ankle x-rays. Radiology interpreted patient is reviewed. Test results discussed with the patient. She already has a walking boot that she uses and she will continue this. She already has a walker and crutches at home as she needs. She already has tramadol at home that she will use for pain. She will follow-up with her orthopedic surgeon in [place]. Discharge Plan Triage Chief Complaint: Lower Extremity Injury ED Provider: Roseline Rosa Dx/Rx/DC Orders Clinical Impression: Left ankle sprain Instructions: ED Sprain Ankle W X Ray Prescriptions: No Action prednisone 5 mg tablet 5 mg PO DAILY PRN (Reason: MS FLARE) RF: 0 baclofen 20 MG tablet 30 mg PO TID RF: 0 cyanocobalamin (vitamin B-12) 1,000 MCG/ML solution 100 mcg IM Q30D RF: 0 ibuprofen 200 MG tablet 400 mg PO DAILY RF: 0 omeprazole 20 MG capsule 20 mg PO BID RF: 0 amitriptyline 100 MG tablet 100 mg PO QHS RF: 0 atenolol 50 MG tablet 75 mg PO QHS RF: 0 atenolol 50 MG tablet 50 mg PO DAILY RF: 0 cholecalciferol (vitamin D3) 50,000 UNIT capsule 50,000 unit PO TUTH RF: 0 sumatriptan succinate 50 MG tablet 50 mg PO PRN PRN (Reason: Pain) RF: 0 tramadol 50 MG tablet 50 mg PO Q4H PRN PRN (Reason: Pain) RF: 0 bumetanide 2 MG tablet 2 mg PO BID RF: 0 ocrelizumab 300 MG/10 ML solution 300 mg IV Q6M RF: 0 amantadine HCl 100 MG capsule 100 mg PO BID RF: 0 ondansetron 4 MG tablet,disintegrating 1 tab PO Q4H PRN PRN (Reason: Nausea) RF: 0 potassium chloride 20 MEQ tablet,ER particles/crystals 20 meq PO DAILY Qty: 1 RF: 0 guaifenesin 1,200 MG tablet 1,200 mg PO BID PRN (Reason: Congestion) RF: 0 dexamethasone 6 MG tablet 6 mg PO DAILY RF: 0 Primary Care Provider: Walt La Referrals: Juan R Cid MD [NON-STAFF] - 1 Week if not improving Walt La DO [Primary Care Provider] - Disposition Disposition: Home, Self Care Discharge Date/Time: 12/12/20 15:01
[2020-12-12 15:00] VITALS: PULSE 91; RESP 22; O2SAT 96
--- NOTE | 2020-12-12 15:00 | ED.RN ---
THIS NURSE REVIEWED D/C INSTRUCTIONS WITH PT. PT VERBALIZED UNDERSTANDING OF INSTRUCTIONS. PT DENIES FURTHER NEEDS OR QUESTIONS. PT ASSISTED TO VEHICLE VIA W/C
== END 2020-12-12 15:01 | disposition home or self-care (01) ==
PROVIDERS: Emergency Provider Emergency Medicine; PCP Family Medicine
DX: S93.402A Sprain of unspecified ligament of left ankle, initial encounter (principal); W19.XXXA Unspecified fall, initial encounter
CPT/HCPCS: 73610; 73630; 99282

== ENCOUNTER → 2021-02-02 14:16 | Outpatient (CLI) | payer BC, MEDICARE, SELFPAY ==
[2021-02-02 18:08] LABS: Absolute Lymphocyte Count 1.16 X10^3/uL (0.83-4.51); Absolute Neutrophil Count 3.3 X10^3/uL (2.0-7.7); Basophil# 0.06 X10^3/uL; Basophil% 1.1 % (0-1); Eosinophil# 0.13 X10^3/uL; Eosinophils% 2.4 % (0-5); Hematocrit 42.3 % (37-47); Hemoglobin 13.4 g/dL (12.0-15.0); Lymphocyte # 1.16 X10^3/ul (0.83-4.51); Lymphocyte % 21.2 % (19-41); Mean Corp Hgb Conc 31.7 g/dL (32-36); Mean Corpuscular Hgb 31.4 pg (27.0-32.0); Mean Corpuscular Volume 99.1 fL (81-99); Mean Platelet Vol. 12.1 fl (6.2-12.0); Monocyte# 0.81 X10^3/uL; Monocyte% 14.8 % (0-10); NRBC Flagged by Analyzer 0 % (0-5); Neutrophil % 60.3 % (47-70); Platelet Count 182 K/mm3 (150-450); RBC Distribution Width CV 13.3 % (11.6-14.6); RBC Distribution Width SD 48.6 fl (35.1-43.9); Red Blood Count 4.27 M/mm3 (4.2-5.4); White Blood Count 5.5 K/mm3 (4.4-11.0)
[2021-02-02 18:22] LABS: ALB/GLOB Ratio 0.9 RATIO (0.9-2.4); AST(SGOT) 18 U/L (15-37); Alanine Aminotransfer ALT/SGPT 24 U/L (13-56); Albumin, Serum 3.7 g/dL (3.2-5.0); Alkaline Phosphatase 150 U/L (45-117); Anion Gap 7 (5-15); BUN 20 mg/dL (7-18); Calcium,Total 8.8 mg/dL (8.5-10.1); Chloride 105 mmol/L (98-107); Creatinine, Serum 1.11 mg/dL (0.55-1.02); EST Glomerular Filtration Rate 53 mL/min (>60); Est Glom Filt Rate - Afr Amer 64 mL/min (>60); Globulin 3.9 g/dL (2.2-4.2); Glucose 89 mg/dL (74-106); Potassium 3.1 mmol/L (3.5-5.1); Protein, Total 7.6 g/dL (6.4-8.2); Sodium Level 141 mmol/L (136-145)
[2021-02-04 05:06] LABS: Immunoglobulin A 159 mg/dL (87-352); Immunoglobulin G 961 mg/dL (586-1602)
[2021-02-04 08:57] LABS: Immunoglobulin M 14 mg/dL (26-217)
== END ==
PROVIDERS: PCP Family Medicine
DX: Z79.899 Other long term (current) drug therapy (principal)
CPT/HCPCS: 36415; 80053; 82784; 85025

== ENCOUNTER 2021-06-05 12:48 | Outpatient (CLI) | payer BC, MEDICARE, SELFPAY ==
--- NOTE | 2021-06-05 12:55 | CT_ITS ---
STUDY: CT FACIAL BONES WITHOUT CONTRAST REASON FOR EXAM: Female, 65 years old. SINUSITIS RADIATION DOSAGE (If Supplied By Facility): CTDIvol = ( 28.14 ) mGy, DLP = ( 728.60 ) mGycm TECHNIQUE: The patient was scanned in a multi detector CT scanner. Sagittal and coronal images were reconstructed. Individualized dose optimization techniques were used for this CT. COMPARISON: None. FINDINGS: Normal soft tissue structures. Normal orbital landin and orbital contents. Normal nasal bones and anterior nasal spine. Normal facial bones. There is no demonstrated fracture. There is partial opacification of the maxillary sinuses bilaterally with nodular thickening worse in the left maxillary sinus. There is compromise of the ostiomeatal complexes due to mucosal hypertrophy. There is hypertrophy of the inferior turbinates in both nasal fossa. CT/Sinus/Facial Bone IMPRESSION: Bilateral maxillary sinusitis with the polyp or retention cyst in the left maxillary sinus. Compromise of the ostiomeatal coccyx is of both maxillary sinuses due to mucosal hypertrophy. Electronically Signed: Feroz Nowak MD at 13:56 EST , Service support ,
== END 2021-06-05 23:59 | disposition short-term general hospital (02) ==
PROVIDERS: PCP Family Medicine; Referring Provider Otolaryngology; Visit Provider Otolaryngology
DX: J32.0 Chronic maxillary sinusitis (principal)
CPT/HCPCS: 70486

== ENCOUNTER → 2021-10-14 | Outpatient (CLI) | payer BC, MEDICARE, SELFPAY ==
[2021-10-14 15:19] LABS: Absolute Neutrophil Count 3.6 X10^3/uL (2.0-7.7); Basophil# 0.06 X10^3/uL; Basophil% 1.1 % (0-1); Eosinophil# 0.11 X10^3/uL; Eosinophils% 2.1 % (0-5); Hematocrit 39.4 % (37-47); Hemoglobin 13.1 g/dL (12.0-15.0); Mean Corp Hgb Conc 33.2 g/dL (32-36); Mean Corpuscular Hgb 31.7 pg (27.0-32.0); Mean Corpuscular Volume 95.4 fL (81-99); Mean Platelet Vol. 11.9 fl (6.2-12.0); Monocyte# 0.56 X10^3/uL; Monocyte% 10.6 % (0-10); NRBC Flagged by Analyzer 0 % (0-5); Neutrophil # 3.64 X10^3/uL (2.7-7.7); Platelet Count 187 K/mm3 (150-450); RBC Distribution Width CV 13.2 % (11.6-14.6); RBC Distribution Width SD 46.4 fl (35.1-43.9); Red Blood Count 4.13 M/mm3 (4.2-5.4); White Blood Count 5.3 K/mm3 (4.4-11.0)
[2021-10-14 15:40] LABS: ALB/GLOB Ratio 1.1 RATIO (0.9-2.4); AST(SGOT) 20 U/L (15-37); Alanine Aminotransfer ALT/SGPT 27 U/L (13-56); Albumin, Serum 3.9 g/dL (3.2-5.0); Alkaline Phosphatase 135 U/L (45-117); Anion Gap 9 (5-15); BUN 18 mg/dL (7-18); BUN/Creat Ratio 19.8 RATIO (10-20); Chloride 104 mmol/L (98-107); Creatinine, Serum 0.91 mg/dL (0.55-1.02); EST Glomerular Filtration Rate 66 mL/min (>60); Est Glom Filt Rate - Afr Amer 80 mL/min (>60); Globulin 3.7 g/dL (2.2-4.2); Glucose 91 mg/dL (74-106); Potassium 3.3 mmol/L (3.5-5.1); Protein, Total 7.6 g/dL (6.4-8.2); Sodium Level 142 mmol/L (136-145)
[2021-10-16 05:08] LABS: Immunoglobulin A 153 mg/dL (87-352); Immunoglobulin G 988 mg/dL (586-1602)
[2021-10-16 08:54] LABS: Immunoglobulin M 21 mg/dL (26-217)
== END | disposition home or self-care (01) ==
LOC: MTLAB 12:34
PROVIDERS: PCP Family Medicine; Referring Provider Internal Medicine; Visit Provider Internal Medicine
DX: Z79.899 Other long term (current) drug therapy (principal)
CPT/HCPCS: 36415; 80053; 82784; 85025

== ENCOUNTER → 2022-03-03 | Outpatient (CLI) | payer BC, MEDICARE, SELFPAY ==
[2022-03-03 17:43] LABS: Absolute Lymphocyte Count 0.82 X10^3/uL (0.83-4.51); Absolute Neutrophil Count 4.6 X10^3/uL (2.0-7.7); Basophil# 0.07 X10^3/uL; Basophil% 1.1 % (0-1); Eosinophil# 0.13 X10^3/uL; Hematocrit 39.8 % (37-47); Hemoglobin 13.2 g/dL (12.0-15.0); Lymphocyte # 0.82 X10^3/ul (0.83-4.51); Lymphocyte % 12.8 % (19-41); Mean Corp Hgb Conc 33.2 g/dL (32-36); Mean Corpuscular Hgb 31.8 pg (27.0-32.0); Mean Corpuscular Volume 95.9 fL (81-99); Mean Platelet Vol. 11.8 fl (6.2-12.0); Monocyte# 0.76 X10^3/uL; Monocyte% 11.8 % (0-10); NRBC Flagged by Analyzer 0 % (0-5); Neutrophil # 4.63 X10^3/uL (2.7-7.7); Platelet Count 175 K/mm3 (150-450); RBC Distribution Width CV 13.6 % (11.6-14.6); RBC Distribution Width SD 47.9 fl (35.1-43.9); Red Blood Count 4.15 M/mm3 (4.2-5.4); White Blood Count 6.4 K/mm3 (4.4-11.0)
[2022-03-03 18:34] LABS: AST(SGOT) 17 U/L (15-37); Alanine Aminotransfer ALT/SGPT 24 U/L (13-56); Albumin, Serum 3.8 g/dL (3.2-5.0); Alkaline Phosphatase 139 U/L (45-117); Anion Gap 8 (5-15); BUN 18 mg/dL (7-18); BUN/Creat Ratio 13.6 RATIO (10-20); Calcium,Total 9.3 mg/dL (8.5-10.1); Chloride 105 mmol/L (98-107); Creatinine, Serum 1.32 mg/dL (0.55-1.02); EST Glomerular Filtration Rate 43 mL/min (>60); Est Glom Filt Rate - Afr Amer 52 mL/min (>60); Globulin 3.7 g/dL (2.2-4.2); Glucose 85 mg/dL (74-106); Potassium 3.7 mmol/L (3.5-5.1); Protein, Total 7.5 g/dL (6.4-8.2); Sodium Level 143 mmol/L (136-145)
[2022-03-05 04:07] LABS: Immunoglobulin A 152 mg/dL (87-352); Immunoglobulin G 911 mg/dL (586-1602)
[2022-03-05 13:08] LABS: Immunoglobulin M 13 mg/dL (26-217)
== END | disposition home or self-care (01) ==
LOC: MTLAB 16:16
PROVIDERS: PCP Family Medicine; Referring Provider Nurse Practitioner Gerontology; Visit Provider Nurse Practitioner Gerontology
DX: Z79.899 Other long term (current) drug therapy (principal)
CPT/HCPCS: 36415; 80053; 82784; 85025

== ENCOUNTER → 2022-03-17 | Outpatient (CLI) | payer BC, MEDICARE, SELFPAY ==
--- NOTE | 2022-03-17 16:05 | RAD_ITS ---
STUDY: X-RAY - LEFT FOOT CLINICAL: Female, 66 years old. Foot pain after injury. TECHNIQUE: 3 view(s) of the foot. COMPARISON: None. FINDINGS: Stable osteopenia. Small inferior calcaneal spur unchanged. Mild diffuse osteoarthritic changes unaltered. The soft tissue structures are unremarkable. RAD/Foot min 3 Views IMPRESSION: Stable osteopenia with inferior calcaneal spur and osteoarthritic change. No acute abnormality or erosive changes. Electronically Signed: Angel Brannon, at 10:12 EDT ,
== END | disposition home or self-care (01) ==
LOC: MTRAD 16:02
PROVIDERS: PCP Family Medicine; Referring Provider Family Medicine; Visit Provider Family Medicine
DX: M79.672 Pain in left foot (principal)
CPT/HCPCS: 73630

== ENCOUNTER 2022-03-24 08:27 | Day surgery (SDC) | payer BC, MEDICARE, SELFPAY ==
--- NOTE | 2022-03-24 | EGD_PTH ---
PATIENT: MEGGAN VILLALOBOS LOC: EN U#:[id number] AGE/SX: 66/F ROOM: RE03/24/[address]: Dr. Tonya Nguyễn MD : 1955 BED: DIS: 03/24/2022 SPEC #: [id number] RECD: 03/24/22 10:53 STATUS: CHARLEEN RE #: [id number] JOHN: 03/24/22 00:[address]: Tonya Nguyễn DEPT: SURGICAL PATHOLOGY RECD BY: Ramonita Antony ENTERED: 03/24/22 10:54 SP TYPE: EGD BIOPSY OT DR: Dr. Walt La, DO Tissues: A - Esophagus, NOS B - Pylorus C - Gastric mucous membrane D - Stomach, NOS Procedures: Special Stain Group II Special Stain Group I Surgery Specimen Level IV GMS Stain (control) Imprint (control) Alcian Blue/PAS (control) HEADER OPERATION: Colonoscopy, EGD ([facility] [place]) with biopsies PRE-OP DIAGNOSIS: Acid reflux, screening, epigastric abdominal pain TISSUE SUBMITTED: A ? Mid esophagus biopsy, white lesion for yeast and path, fresh, B - Pre-pyloric biopsy for histo and H. pylori, C ? Gastric polyp biopsy, D ? Gastroesophageal junction biopsy MICROSCOPIC DIAGNOSIS A. Mid esophagus, biopsy: No pathologic change. Negative for fungal organisms. See comment. B. Pre-pyloric and gastric pre-pyloric region, biopsy: Mild chronic gastritis. See comment. C. Gastric polyp, biopsy: Fundic gland polyp. D. Gastroesophageal junction, biopsy: Chronic inflammation. Focal changes of reflux. No evidence of goblet cell metaplasia. See comment. AM:lynn 03/25/2022 COMMENT A. The specimen is evaluated at the time of smears by Dr. He. Immediate Evaluation = No evidence of Janes. A. GMS stain with matched control was used in the evaluation of this case. B. The results of immunohistochemistry for Helicobacter pylori will be reported separately ([id number]). C. Alcian blue/PAS stain with matched control supports the above diagnosis. MICROSCOPIC DESCRIPTION Slides are reviewed. GROSS DESCRIPTION A - Received fresh labeled with the patient's name is a specimen designated mid esophagus lesion. The specimen consists of multiple irregular fragments of light mcconnell soft tissue that in aggregate measure 0.2 x 0.1 x <0.1 cm. The specimen is totally submitted in one cassette after sales representative womens health crush prep smears are prepared and examined. B - Received in fixative is one container labeled with the patient's name and designated pre-pyloric biopsy. The specimen consists of one irregular fragment of light mcconnell soft tissue that measures 0.3 x 0.2 x 0.1 cm. The specimen is totally submitted in one cassette. C - Received in fixative is one container labeled with the patient's name and designated gastric polyp. The specimen consists of one irregular fragment of light mcconnell soft tissue that measures 0.5 x 0.5 x 0.1 cm. The specimen is totally submitted in one cassette. D - Received in fixative is one container labeled with the patient's name and designated GE junction. The specimen consists of multiple irregular fragments of light mcconnell soft tissue that in aggregate measure 1 x 0.5 x 0.1 cm. The specimen is totally submitted in one cassette. / AM:lynn 03/24/2022 TC:3 CPT: 76081 x4, 94783, [id number], [id number]
[2022-03-24 08:44] VITALS: BP 164/67; PULSE 80; RESP 16; TEMP 36.4; O2SAT 97; BMI 38.2
[2022-03-24] MEDS: Lactated Ringers 1,000 ML 15 ML IV (08:50)
--- NOTE | 2022-03-24 09:00 | HP.PCM_ITS ---
History and Physical Date of Admission: 03/24/22 Date of Service:? 03/01/22 MR#: [id number] Acct: [id number] Name:? MEGGAN VILLALOBOS Rep #: [id number] : 1955 ? ? Provider: Dr. Tonya Nguyễn MD Age/Sex:? 66/F ? ? Location: [facility] [place].[facility] Status: Signed Intake Vital Signs ? 12/12/2112:52 03/01/2214:49 Height 5 ft 4 in 5 ft 4 in Weight: ? 226 lb BMI ? 38.7 BP ?B 129/61 H Blood Pressure Location ? Rt popliteal Position ? Sitting Respiration ? 17 Pulse ? 76 Pulse Source ? Monitor Temp ? 97 F L Temp Source ? Temporal Pulse Oximetry (%) ? 96 Oxygen Delivery Method ? room air Intake Visit Reasons:?COLONOSCOPY Chief Complaint: colonoscopy Is patient in pain?: No Allergies adhesive Allergy (Verified 03/01/22 14:51) Unknownamlodipine besylate [From Lotrel] Allergy (Verified 03/01/22 14:51) Unknownaspirin Allergy (Verified 03/01/22 14:51) Unknownbenazepril HCl [From Lotrel] Allergy (Verified 03/01/22 14:51) Unknowncodeine Allergy (Verified 03/01/22 14:51) Unknownlatex Allergy (Verified 03/01/22 14:51) RashPenicillins Allergy (Verified 03/01/22 14:51) Unknown Medications amitriptyline 100 mg tablet 100 mg PO QHS 08/04/14 [History Confirmed 03/01/22] atenolol 50 mg tablet 50 mg PO DAILY 08/04/14 [History Confirmed 03/01/22] atenolol 50 mg tablet 75 mg PO QHS 08/04/14 [History Confirmed 03/01/22] baclofen 20 mg tablet 30 mg PO TID 08/04/14 [History Confirmed 03/01/22] cholecalciferol (vitamin D3) 1,250 mcg (50,000 unit) capsule 50,000 unit PO TUTH Supplement 08/04/14 [History Confirmed 03/01/22] cyanocobalamin (vitamin B-12) 1,000 mcg/mL injection solution 100 mcg IM Q30D 08/04/14 [History Confirmed 03/01/22] ibuprofen 200 mg tablet 400 mg PO DAILY 08/04/14 [History Confirmed 03/01/22] tramadol 50 mg tablet 50 mg PO Q4H PRN PRN Pain 09/03/18 [History Confirmed 03/01/22] amantadine HCl 100 mg capsule 100 mg PO BID 09/04/18 [History Confirmed 03/01/22] bumetanide 2 mg tablet 2 mg PO BID 09/04/18 [History Confirmed 03/01/22] ocrelizumab 30 mg/mL intravenous solution 300 mg IV Q6M 09/04/18 [History Confirmed 03/01/22] potassium chloride 20 mEq tablet,extended release(part/cryst) 20 meq PO DAILY ##1 05/17/19 [Rx Confirmed 03/01/22] dexamethasone 6 mg tablet 6 mg PO DAILY 07/17/20 [History Confirmed 03/01/22] omeprazole magnesium 20 mg tablet,delayed release (Prilosec OTC) 20 mg PO BID 03/01/22 [History Confirmed 03/01/22] sumatriptan succinate 50 mg tablet (Imitrex) 50 mg PO ONCE PRN migraine headache 03/01/22 [History Confirmed 03/01/22] PFSH Medical History?(Updated 03/03/22 @ 08:[address] Tonya Nguyễn MD) COVID-19 Influenza A bronchitis Migraine headache Multiple sclerosis Peripheral neuropathy Surgical History?(Updated 03/01/22 @ 14:41 by Sosa Diallo) History of cataract surgery History of hysterectomy Family History?(Updated 03/01/22 @ 14:48 by Sosa Diallo) Brother Diabetes Heart disease Kidney disease CancerMother Diabetes Hypertension Thyroid disorder Social History?(Updated 03/01/22 @ 14:48 by Sosa Diallo) Smoking Status:? Never smoker alcohol intake:? never substance use type:? does not use additional social history:? uses ibuprofen daily ? HPI HPI HPI: 66-year-old female presents for EGD and colonoscopy.? Patient states she last had an EGD about greater than 15 years ago and her last colonoscopy was in [address] Thomas which was negative per patient.? Patient states when she had the EGD back about 15 years ago she did have a history of an ulcer in the duodenum.? Patient states she has been on Prilosec 20 mg p.o. twice daily for about 30 years.? Patient states she has some abdominal pain and in the epigastric/supraumbilical area and go to the right upper quadrant.? Patient can get this in the morning before she ever eats.? Patient does have past medical history involving 2 upper molar teeth being pulled last year and then going back and per patient taking too much thus patient was left with a hole between her nasal cavity and oral cavity.? In August 2021 patient did have surgery up at to place flaps in these areas.? Patient has states that the lower flap looks to be intact but she sometimes does get some aspiration however and she no longer has any food coming out of her nose she wonders if the upper flap in the nasal cavity could be an issue.? Patient was also wondering if I would see this area with an EGD-discussed that I would not.? Patient states she has been trying to increase her fiber as she has been taking some fiber Gummies recently.? Patient drinks states she drinks plenty of water.? Patient has bowel movements about eh ry 2 days.? Patient denies any family history of colon cancer.? Patient does have past medical history as well for MS which she gets weakness in her legs as well as tingling or hypersensitivity in her lower extremities. ROS General General: Yes weight change; No appetite, fatigue, colon cancer or breast cancer HEENT HEENT: Yes difficulty swallowing and eye surgery; No eye injury, swollen glands or hoarseness Endo Endocrine: No thyroid disease, diabetes mellitus, thyroid cancer, Hair loss, heat intolerance or cold intolerance Skin Skin: Yes changing moles; No rash Musc Musculoskeletal: Yes back problems; No arthritis, rheumatoid arthritis, gout or joint pain Cardio Cardiovascular: Yes high blood pressure; No murmur, pacemaker, heart disease, atrial fibrillation, heart attack, heart stent, palpitations, shortness of breat with exertion or chest pain Psych Psychiatric: No depression, anxiety or hearing voices Resp Respiratory: No shortness of breath, No sleep apnea, No cough, No COPD, No asthma, No emphysema and No wheezing Gastro Gastrointestinal: Yes abdominal pain, No nausea or vomiting, No diarrhea, Yes constipation, No blood in stool, Yes acid reflux, No hemorrhoids, Yes ulcers, No gallbladder problem and No black,tarry stools Hunter Hematologic: No blood thinners, No blood disorders, No bleeding, No anemia and No blood clots Neuro Neurologic: Yes numbness and Yes tingling Exam Const General: cooperative, healthy appearing and no acute distress Nutritional Appearance: well nourished [facility] Head: normal to inspection Resp Effort & Inspection: normal respiratory effort Auscultation: clear to auscultation bilaterally Cardio Rate: regular rate Rhythm: regular rhythm GI Inspection: non-distended Palpation: soft, no guarding and tender in the epigastrum Skin General: no rashes or lesions noted Neuro General: patient alert, patient awake and patient oriented x3 Extrem General: no clubbing, cyanosis or edema Psych Affect: normal affect Assessment and Plan Assessment and Plan (1) Acid reflux: ?Status:?Acute (2) Screening for colon cancer: ?Status:?Acute (3) Epigastric abdominal pain: ?Status:?Acute ? ? ? Orders: Orders Colonoscopy Today ? ? EGD Today ? ? Plan Discussed with patient would try Protonix 40 mg p.o. daily instead of Prilosec as she has been on it for years.? Did also discussed the importance of increasing fiber in her diet.? Patient has already started using the fiber Gummies.? Also discussed with patient that I would not be able to evaluate the oral flaps or nasal flaps as I do not really see the oral cavity well with the EGD would defer that to ENT.? Patient states she has not seen her surgeon backup at as it is [place].? Patient did previously see Dr. Cisneros.? Discussed with patient that maybe she could try and see if call his office see if he would be willing to even take a look. I have discussed the above with the patient. I have offered the patient EGD and colonoscopy for evaluation. I have explained the risks/benefits of the procedure and described the procedure.? I have discussed the risks with the patient, including but not limited to:? infection, bleeding, perforation of the GI tract requiring emergency surgery, inability to complete the procedure, injury to any internal organs, complications of anesthesia, etc. - the patient understands and agrees to proceed. I have answered all the patient's questions to the patient's satisfaction and the patient has no further questions. The patient has been given instructions for the colon cleansing preparation.? 1 day of clears MiraLAX Dulcolax split prep.? Did caution patient that if her constipation gets worse she may need 2 days of clears. Tonya Nguyễn M.D. Pager: [phone] [facility] [address] [place] [address], [facility], [address] [place] [address] Office: [phone] Coding Level of Care Code Off vis,new,level 4 Diagnoses Acid reflux? K21.9 Screening for colon cancer? Z12.11 Epigastric abdominal pain? R10.13 03/03/22 0845 <Electronically signed by Tonya Nguyễn MD> Date Tonya Nguyễn MD
--- NOTE | 2022-03-24 09:30 | IMM_PTH ---
PATIENT: MEGGAN VILLALOBOS LOC: EN U#:[id number] AGE/SX: 66/F ROOM: RE03/24/[address]: Dr. Tonya Nguyễn MD : 1955 BED: DIS: 03/24/2022 SPEC #: [id number] RECD: 03/24/22 12:43 STATUS: CHARLEEN REQ #: [id number] JOHN: 03/24/22 09:[address]: Tonya Nguyễn DEPT: IMMUNOHISTOCHEMISTRY RECD BY: Uzma Polo ENTERED: 03/24/22 12:44 SP TYPE: IMMUNO OTHR DR: Dr. Walt La, DO Tissues: B - Pyloric antrum Procedures: H Pylori (initial) PHYSICIAN & INSTITUTION [place] [id number] SPECIMEN INFORMATION: Tissue Source: B ? Pre-pyloric biopsy Clinical Info: Acid reflux, screening, epigastric abdominal pain Specimen Number: [id number] CPT code: 07391 METHODOLOGY: Deparaffinized sections of prefer/formalin-fixed tissue or PAP/DQ stained slides are incubated with monoclonal/polyclonal antibodies/oligonucleotide probes. Localization is made via biotin free immunoperoxidase method. Appropriate controls are performed and reacted as expected. Results on target cell population are indicated in the following table: RESULTS: ANTIBODY / CLONE RESULT Block B H Pylori (polyclonal) negative These tests were developed and their performance characteristics determined by [facility]. They may not have been cleared or approved by the U.S. Food and Drug Administration. The FDA has determined that such clearance or approval is not necessary. The above immunohistochemical/dualISH markers are ordered and reviewed by the Pathologist. INTERPRETATION: B. Pre-pyloric biopsy: Negative for Helicobacter pylori organisms. AM:lynn 03/25/2022
[2022-03-24 09:46] VITALS: BP 142/74; BP 164/67; PULSE 68; RESP 16; TEMP 36.8; O2SAT 94
[2022-03-24 09:51] VITALS: BP 141/87; BP 164/67; PULSE 66; RESP 16; O2SAT 99
--- NOTE | 2022-03-24 09:52 | OP.EGD_ITS ---
Patient Name: Maria Luisa Rogers Procedure Date: 03/24/2022 9:09 AM Date of : 1955 Age: 66 Procedure: Upper GI endoscopy Indications: Epigastric abdominal pain, Heartburn Providers: Tonya Nguyễn MD Medicines: Monitored Anesthesia Care Patient Profile: This is a 66 year old female. Complications: No immediate complications. Procedure: Pre-Anesthesia Assessment: - Prior to the procedure, a History and Physical was performed, and patient medications and allergies were reviewed. The patient's tolerance of previous anesthesia was also reviewed. The risks and benefits of the procedure and the sedation options and risks were discussed with the patient. All questions were answered, and informed consent was obtained. Prior Anticoagulants: The patient has taken no previous anticoagulant or antiplatelet agents. ASA Grade Assessment: Per anesthesia. After reviewing the risks and benefits, the patient was deemed in satisfactory condition to undergo the procedure. After obtaining informed consent, the endoscope was passed under direct vision. Throughout the procedure, the patient's blood pressure, pulse, and oxygen saturations were monitored continuously. The pediatric colonoscope was introduced through the mouth, and advanced to the second part of duodenum. The upper GI endoscopy was accomplished without difficulty. The patient tolerated the procedure well. Scope In: 9:16:49 AM Scope Withdrawal Time 0 hours 7 minutes 53 seconds Scope Out: 9:42:19 AM Total Procedure Duration Time 0 hours 25 minutes 30 seconds Findings: The Z-line was irregular and was found 40 cm from the incisors. Biopsies were taken with a cold forceps for histology. Moderate inflammation characterized by erythema was found in the gastric antrum and in the prepyloric region of the stomach. Biopsies were taken with a cold forceps for histology. Biopsies were taken with a cold forceps for Helicobacter pylori cultures. The examined duodenum was normal. The cardia and gastric fundus were normal on retroflexion. Multiple less than 5 mm semi-sessile polyps with no bleeding and no stigmata of recent bleeding were found in the gastric fundus and in the gastric body. The polyp was removed with a cold biopsy forceps. Resection and retrieval were complete. White nummular lesions were noted in the middle third of the esophagus. Biopsies were taken with a cold forceps for histology. Impression: - Z-line irregular, 40 cm from the incisors. Biopsied. - Gastritis. Biopsied. - Normal examined duodenum. - Multiple gastric polyps. Resected and retrieved. - White nummular lesions in esophageal mucosa. Biopsied. Recommendation: - Discharge patient to home. - Resume previous diet. - Continue present medications. - Use Protonix (pantoprazole) 40 mg PO daily. - Use sucralfate tablets 1 gram PO QID for 2 weeks. Procedure Code(s): --- Professional --- 38637, Esophagogastroduodenoscopy, flexible, transoral; with biopsy, single or multiple Diagnosis Code(s): --- Professional --- K22.8, Other specified diseases of esophagus K29.70, Gastritis, unspecified, without bleeding K31.7, Polyp of stomach and duodenum R10.13, Epigastric pain R12, Heartburn CPT copyright 2017 [employer]. All rights reserved. The codes documented in this report are preliminary and upon engineering illustrator review may be revised to meet current compliance requirements. MD Tonya Saldana MD 03/24/2022 9:51:51 AM This report has been signed electronically. Number of Addenda: 0 Note Initiated On: 03/24/2022 9:09 AM
--- NOTE | 2022-03-24 09:53 | OP.CCLET_ITS ---
03/24/2022 Walt La [address] [facility] [place] [address] Re : Upper GI endoscopy procedure for Maria Luisa Son Rogers Dear Dr. La This procedure was performed on Thursday, March 24, 2022. My impressions and recommendations are as follows: Impressions : - Z-line irregular, 40 cm from the incisors. Biopsied. - Gastritis. Biopsied. - Normal examined duodenum. - Multiple gastric polyps. Resected and retrieved. - White nummular lesions in esophageal mucosa. Biopsied. Recommendations : - Discharge patient to home. - Resume previous diet. - Continue present medications. - Use Protonix (pantoprazole) 40 mg PO daily. - Use sucralfate tablets 1 gram PO QID for 2 weeks. My findings are described in the full procedure note, which is enclosed. If I can be of further assistance, please feel free to contact me at Doctor phone number(s): , Work: . Sincerely, MD Tonya Saldana MD 03/24/2022 9:51:51 AM This report has been signed electronically.
[2022-03-24 09:56] VITALS: BP 150/79; BP 164/67; PULSE 67; RESP 16; O2SAT 95
[2022-03-24 10:01] VITALS: BP 159/80; BP 164/67; PULSE 67; RESP 16; TEMP 36.6; O2SAT 96
--- NOTE | 2022-03-24 10:02 | OP.COLON_ITS ---
Patient Name: Maria Luisa Rogers Procedure Date: 03/24/2022 9:56 AM Date of : 1955 Age: 66 Procedure: Colonoscopy Indications: Screening for colorectal malignant neoplasm Providers: Tonya Nguyễn MD Medicines: Monitored Anesthesia Care Patient Profile: This is a 66 year old female. Last Colonoscopy: 2009. Complications: No immediate complications. Procedure: Pre-Anesthesia Assessment: - Prior to the procedure, a History and Physical was performed, and patient medications and allergies were reviewed. The patient's tolerance of previous anesthesia was also reviewed. The risks and benefits of the procedure and the sedation options and risks were discussed with the patient. All questions were answered, and informed consent was obtained. Prior Anticoagulants: The patient has taken no previous anticoagulant or antiplatelet agents. ASA Grade Assessment: Per anesthesia. After reviewing the risks and benefits, the patient was deemed in satisfactory condition to undergo the procedure. After I obtained informed consent, the scope was passed under direct vision. Throughout the procedure, the patient's blood pressure, pulse, and oxygen saturations were monitored continuously. The pediatric colonoscope was introduced through the anus and advanced to the cecum, identified by the appendiceal orifice, ileocecal valve and palpation. The colonoscopy was performed without difficulty. The patient tolerated the procedure well. The quality of the bowel preparation was good. Scope In: Scope Out: Findings: Hemorrhoids were found on perianal exam. Non-bleeding internal hemorrhoids were found. The hemorrhoids were Grade I (internal hemorrhoids that do not prolapse). The entire examined colon appeared normal. Impression: - Hemorrhoids found on perianal exam. - Non-bleeding internal hemorrhoids. - The entire examined colon is normal. - No specimens collected. Recommendation: - Discharge patient to home. - Resume previous diet. - Continue present medications. - Repeat colonoscopy in 10 years for screening purposes. Procedure Code(s): --- Professional --- G0121, PT, Colorectal cancer screening; colonoscopy on individual not meeting criteria for high risk Diagnosis Code(s): --- Professional --- Z12.11, Encounter for screening for malignant neoplasm of colon K64.0, First degree hemorrhoids CPT copyright 2017 [employer]. All rights reserved. The codes documented in this report are preliminary and upon security tech review may be revised to meet current compliance requirements. MD Tonya Saldana MD 03/24/2022 10:01:27 AM This report has been signed electronically. Number of Addenda: 0 Note Initiated On: 03/24/2022 9:56 AM
--- NOTE | 2022-03-24 10:03 | OP.CCLET_ITS ---
03/24/2022 Walt La [address] [place] [address] Re : Colonoscopy procedure for Maria Luisa Son Girdler Dear Dr. La This procedure was performed on Thursday, March 24, 2022. My impressions and recommendations are as follows: Impressions : - Hemorrhoids found on perianal exam. - Non-bleeding internal hemorrhoids. - The entire examined colon is normal. - No specimens collected. Recommendations : - Discharge patient to home. - Resume previous diet. - Continue present medications. - Repeat colonoscopy in 10 years for screening purposes. My findings are described in the full procedure note, which is enclosed. If I can be of further assistance, please feel free to contact me at Doctor phone number(s): , Work: . Sincerely, MD Tonya Saldana MD 03/24/2022 10:01:27 AM This report has been signed electronically.
[2022-03-24 10:40] VITALS: BP 164/67
== END 2022-03-24 11:35 | disposition home or self-care (01) ==
LOC: EN 08:29 → AC 08:30
PROVIDERS: PCP Family Medicine; Referring Provider Surgery; Visit Provider Surgery
PROC: 0DJD8ZZ Inspection of Lower Intestinal Tract, Via Natural or Artificial Opening Endoscopic (ICD-10-PCS; CPT 45378; principal; 2022-03-24 09:25)
DX: Z12.11 Encounter for screening for malignant neoplasm of colon (principal); G35 Multiple sclerosis; K31.89 Other diseases of stomach and duodenum; K31.7 Polyp of stomach and duodenum; K64.0 First degree hemorrhoids; K21.00 Gastro-esophageal reflux disease with esophagitis, without bleeding; K29.50 Unspecified chronic gastritis without bleeding; F41.9 Anxiety disorder, unspecified; Z86.16 Personal history of COVID-19; Z79.899 Other long term (current) drug therapy
CPT/HCPCS: G0121; 43239; 88305; 88312; 88313; 88342; J7120; J2405

== ENCOUNTER → 2022-05-03 | Outpatient (CLI) | payer BC, MEDICARE, SELFPAY ==
[2022-05-03 17:51] LABS: Color, Urine Yellow (Yellow); Glucose, Dipstick Normal (Normal); Ketone-Dipstick Negative (Negative); Leukocyte Esterase-Dipstick Negative /ul (Negative); Nitrite-Dipstick Negative (Negative); Occult Blood-Urine Negative /ul (Negative); Protein-Dipstick Negative (Negative); Specific Gravity, Urine 1.015 (1.002-1.030); Urine Bilirubin Dipstick Negative (Negative); Urine Clarity Clear (Clear); Urine Urobilinogen Normal (Normal); Urine pH 6.5 (5.0 - 8.0)
[2022-05-03 18:04] LABS: BNP,B-Type NATRIURETIC PEPTIDE 63.8 pg/mL (0-100)
[2022-05-03 18:14] LABS: AST(SGOT) 18 U/L (15-37); Alanine Aminotransfer ALT/SGPT 28 U/L (13-56); Albumin, Serum 3.7 g/dL (3.2-5.0); Alkaline Phosphatase 138 U/L (45-117); Anion Gap 7 (5-15); BUN 14 mg/dL (7-18); BUN/Creat Ratio 14.3 RATIO (10-20); Calcium,Total 8.8 mg/dL (8.5-10.1); Chloride 105 mmol/L (98-107); Creatinine, Serum 0.98 mg/dL (0.55-1.02); EST Glomerular Filtration Rate 60 mL/min (>60); Est Glom Filt Rate - Afr Amer 73 mL/min (>60); Globulin 3.8 g/dL (2.2-4.2); Glucose 81 mg/dL (74-106); Potassium 3.3 mmol/L (3.5-5.1); Protein, Total 7.5 g/dL (6.4-8.2); Sodium Level 143 mmol/L (136-145)
== END | disposition home or self-care (01) ==
LOC: BFHLAB 15:42
PROVIDERS: PCP Family Medicine; Visit Provider Family Medicine
DX: R60.0 Localized edema (principal); I51.89 Other ill-defined heart diseases
CPT/HCPCS: 36415; 80053; 81002; 83880; 84443

== ENCOUNTER → 2022-06-18 | Outpatient (CLI) | payer MEDICARE, OTHER, SELFPAY ==
[2022-06-18 18:09] LABS: Anion Gap 9 (5-15); BUN 17 mg/dL (7-18); BUN/Creat Ratio 15.6 RATIO (10-20); Calcium,Total 9.2 mg/dL (8.5-10.1); Chloride 104 mmol/L (98-107); Creatinine, Serum 1.09 mg/dL (0.55-1.02); EST Glomerular Filtration Rate 54 mL/min (>60); Est Glom Filt Rate - Afr Amer 65 mL/min (>60); Glucose 91 mg/dL (74-106); Magnesium 1.9 mg/dL (1.6-2.6); Potassium 3.6 mmol/L (3.5-5.1); Sodium Level 142 mmol/L (136-145)
== END | disposition home or self-care (01) ==
PROVIDERS: PCP Family Medicine; Visit Provider Family Medicine
DX: R00.2 Palpitations (principal)
CPT/HCPCS: 36415; 80048; 83735

== ENCOUNTER → 2022-08-12 | Outpatient (CLI) | payer MEDICARE, OTHER, SELFPAY ==
--- NOTE | 2022-08-12 12:29 | ECHOD_ITS ---
Reason For Study: PALPITATIONS Procedure This was a 2D Doppler, Color Flow transthoracic echocardiogram. The study was technically difficult. Due to MS, unable to position PT in ideal position for imaging. Exam performed in department. Left Ventricle Normal LV size. The estimated ejection fraction is 55 %. Diastolic function is indeterminate. No regional wall motion abnormalities noted. Right Ventricle Normal RV size. Normal systolic function. Atria The left atrium is mildly enlarged. Normal right atrium. No doppler evidence for ASD. Mitral Valve There is no mitral valve stenosis. Mild (1+) mitral valve insufficiency. Tricuspid Valve There is no tricuspid stenosis. Trivial tricuspid valve insufficiency. Aortic Valve Trisinus/trileaflet aortic valve. There is no aortic stenosis. No aortic valve insufficiency. Pulmonic Valve There is no pulmonic valvular stenosis. No pulmonic valve insufficiency. Great Vessels Normal aortic root. Pericardium/Pleural No pericardial effusion. MMode/2D Measurements & Calculations LVIDd: 5.3 cm IVSd: 0.83 cm Ao root diam: 3.1 cm LVIDs: 3.7 cm LVPWd: 0.90 cm RVDd: 3.4 cm FS: 29.8 % LAV(MOD-bp): 68.5 ml LVAd ap4: 25.5 cm2 LVAd ap2: 20.6 cm2 LAV(MOD-bp) Indexed: 33.3 ml/m2 LVLd ap4: 7.0 cm LVLd ap2: 7.0 cm LAV(MOD-sp2): 69.9 ml EDV(MOD-sp4): 80.2 ml EDV(MOD-sp2): 55.8 ml LAV(MOD-sp4): 65.8 ml EDV(sp4-el): 78.6 ml EDV(sp2-el): 51.4 ml LVAs ap4: 16.0 cm2 LVAs ap2: 11.9 cm2 LVLs ap4: 6.1 cm LVLs ap2: 5.3 cm ESV(MOD-sp4): 38.3 ml ESV(MOD-sp2): 24.8 ml ESV(sp4-el): 35.6 ml ESV(sp2-el): 22.7 ml EF(MOD-sp4): 52.2 % EF(MOD-sp2): 55.6 % EF(sp4-el): 54.6 % SV(MOD-sp4): 41.8 ml SV(MOD-sp2): 31.0 ml SV(sp4-el): 42.9 ml LA dimension(2D): 4.3 cm LA A4 area: 20.9 cm2 RA A4 area: 14.2 cm2 Time Measurements MV dec time: 0.17 sec Doppler Measurements & Calculations MV E max christian: 78.5 cm/sec Lat Peak E' Christian: 6.0 cm/sec Med Peak E' Christian: 7.4 cm/sec MV A max christian: 64.5 cm/sec E/E' lat: 13.1 E/E' med: 10.6 MV E/A: 1.2 MV dec slope: 477.5 cm/sec2 Ao V2 max: 92.0 cm/sec LV V1 max: 70.3 cm/sec Ao max P.4 mmHg LV V1 max P.0 mmHg Ao V2 mean: 67.4 cm/sec LV V1 mean P.00 mmHg Ao mean P.0 mmHg LV V1 mean: 47.1 cm/sec Ao V2 VTI: 26.3 cm LV V1 VTI: 18.5 cm AV (velocity ratio): 0.70 PA V2 max: 86.8 cm/sec TR max christian: 265.6 cm/sec PA V2 mean: 62.0 cm/sec TR max P.2 mmHg ECHO/Echo Complete Interpretation Summary The estimated ejection fraction is 55 %. Diastolic function is indeterminate. Mild (1+) mitral valve insufficiency. Ordering Physician: Walt La Referring Physician: Walt La Performed By: Maria Luisa Tolentino, ELI, RVT
[2022-08-12 14:13] LABS: Absolute Lymphocyte Count 0.87 X10^3/uL (0.83-4.51); Absolute Neutrophil Count 4.1 X10^3/uL (2.0-7.7); Basophil# 0.07 X10^3/uL; Basophil% 1.2 % (0-1); Eosinophil# 0.07 X10^3/uL; Eosinophils% 1.2 % (0-5); Hematocrit 40.5 % (37-47); Hemoglobin 13.2 g/dL (12.0-15.0); Lymphocyte # 0.87 X10^3/ul (0.83-4.51); Lymphocyte % 15.3 % (19-41); Mean Corp Hgb Conc 32.6 g/dL (32-36); Mean Corpuscular Hgb 31.7 pg (27.0-32.0); Mean Corpuscular Volume 97.4 fL (81-99); Mean Platelet Vol. 11.1 fl (6.2-12.0); Monocyte# 0.58 X10^3/uL; Monocyte% 10.2 % (0-10); NRBC Flagged by Analyzer 0 % (0-5); Neutrophil # 4.09 X10^3/uL (2.7-7.7); Neutrophil % 71.7 % (47-70); Platelet Count 157 K/mm3 (150-450); RBC Distribution Width CV 13.2 % (11.6-14.6); RBC Distribution Width SD 47.9 fl (35.1-43.9); Red Blood Count 4.16 M/mm3 (4.2-5.4); White Blood Count 5.7 K/mm3 (4.4-11.0)
[2022-08-12 14:41] LABS: ALB/GLOB Ratio 1.1 RATIO (0.9-2.4); AST(SGOT) 17 U/L (15-37); Alanine Aminotransfer ALT/SGPT 23 U/L (13-56); Albumin, Serum 3.8 g/dL (3.2-5.0); Alkaline Phosphatase 145 U/L (45-117); Anion Gap 4 (5-15); BUN 17 mg/dL (7-18); BUN/Creat Ratio 18.4 RATIO (10-20); Calcium,Total 9.1 mg/dL (8.5-10.1); Chloride 103 mmol/L (98-107); Creatinine, Serum 0.93 mg/dL (0.55-1.02); EST Glomerular Filtration Rate 65 mL/min (>60); Est Glom Filt Rate - Afr Amer 78 mL/min (>60); Globulin 3.6 g/dL (2.2-4.2); Glucose 100 mg/dL (74-106); Potassium 3.5 mmol/L (3.5-5.1); Protein, Total 7.4 g/dL (6.4-8.2); Sodium Level 139 mmol/L (136-145)
[2022-08-14 07:08] LABS: Immunoglobulin A 143 mg/dL (87-352); Immunoglobulin G 976 mg/dL (586-1602)
[2022-08-14 14:18] LABS: Immunoglobulin M 13 mg/dL (26-217)
== END | disposition home or self-care (01) ==
PROVIDERS: PCP Family Medicine; Referring Provider Internal Medicine; Visit Provider Family Medicine
DX: R00.2 Palpitations (principal); Z79.899 Other long term (current) drug therapy
CPT/HCPCS: 36415; 80053; 82784; 85025; 93225; 93226; 93306

== ENCOUNTER 2022-10-24 22:07 | Inpatient (IN) | payer MEDICARE, OTHER, SELFPAY ==
[2022-10-24 22:08] VITALS: BP 164/81; PULSE 78; RESP 15; TEMP 36.4; O2SAT 97
--- NOTE | 2022-10-24 22:20 | RAD_ITS ---
INDICATION: Fall, right ankle pain EXAMINATION/TECHNIQUE: X-RAY - RIGHT XR Ankle Min 3 Views COMPARISON: Right ankle radiograph from 05/16/2019 FINDINGS: SOFT TISSUES: Diffuse subcutaneous edema with superimposed ankle soft tissue swelling. Small chronic appearing soft tissue calcification posterior ankle. BONES/JOINTS: Oblique partially displaced fracture distal fibular metaphysis extending above level of ankle joint space. Oblique partially displaced fracture medial malleolus of distal tibia. Mild ankle joint space widening. Small plantar calcaneal enthesophyte. RAD/Ankle min 3 Views IMPRESSION: Partially displaced bimalleolar right ankle fracture with mild ankle joint space widening/instability. Electronically Signed: Walt Woodward MD at 22:55 EDT ,
[2022-10-24 22:44] VITALS: BMI 39.5
[2022-10-24] MEDS: Morphine 4 MG/ML Syringe IM (23:32)
[2022-10-25] VITALS (11 sets, daily range): BP systolic 120–157; BP diastolic 59–79; PULSE 63–89; RESP 14–18; TEMP 36.1–36.9; O2SAT 92–100; BMI 37.6
--- NOTE | 2022-10-25 00:09 | EDS_ITS ---
HPI History of Present Illness HPI Narrative: Patient presents with right ankle injury that occurred tonight. Patient states she has a history of MS and has frequent falls. Patient fell 3 times today. Patient states she felt a popping and snapping sensation with the last fall. Patient was unable to ambulate after the last fall. Patient describes her pain as throbbing. Patient states it is worse with movement. Patient admits to some paresthesias and weakness in her right foot and ankle but states these are chronic due to her MS. Chief Complaint: Lower Extremity Injury Informant: patient Occured/Mechanism Mechanism/Context: Yes fall Onset/Context/Timing Onset: Today Context: Sudden Onset Timing: Continuous Quality of Pain: Throbbing Location: Right ankle Worsened by: Movement Relieved by: Nothing Associated Symptoms Associated Symptoms: Positive for Parasthesia and Weakness; Negative for Loss of Funtion PFSH [facility] Medical History Anxiety COVID-19 Difficulty swallowing Easy bruising Excessive bleeding Former smoker Gastric reflux History of edema History of GI bleed History of stress test Hoarseness Hypertension Influenza A bronchitis Leg cramps Migraine headache Multiple sclerosis Peripheral neuropathy PONV (postoperative nausea and vomiting) Shortness of breath on exertion Walker as ambulation aid Wears glasses Wears partial dentures Home Medications amitriptyline 100 mg tablet 100 mg PO QHS 08/04/14 [History Last Taken 09/03/18] atenolol 50 mg tablet 50 mg PO DAILY 08/04/14 [History Last Taken 03/24/22] atenolol 50 mg tablet 75 mg PO QHS 08/04/14 [History Last Taken 09/03/18] baclofen 20 mg tablet 30 mg PO TID MS 08/04/14 [History Last Taken 09/03/18] cholecalciferol (vitamin D3) 1,250 mcg (50,000 unit) capsule 50,000 unit PO TUTH Supplement 08/04/14 [History Last Taken 09/03/18] cyanocobalamin (vitamin B-12) 1,000 mcg/mL injection solution 100 mcg IM Q30D 08/04/14 [History Last Taken 09/03/18] ibuprofen 200 mg tablet 400 mg PO DAILY 08/04/14 [History Last Taken 09/03/18] tramadol 50 mg tablet 50 mg PO Q4H PRN PRN Pain 09/03/18 [History Last Taken Unknown] amantadine HCl 100 mg capsule 100 mg PO BID SPASMS 09/04/18 [History Last Taken Unknown] bumetanide 2 mg tablet 2 mg PO BID WATER PILL 09/04/18 [History Last Taken Unknown] ocrelizumab 30 mg/mL intravenous solution 300 mg IV Q6M MS 09/04/18 [History Last Taken Unknown] potassium chloride 20 mEq tablet,extended release(part/cryst) 20 meq PO DAILY ##1 05/17/19 [Rx Last Taken Unknown] sumatriptan succinate 50 mg tablet (Imitrex) 50 mg PO ONCE PRN migraine headache 03/01/22 [History Last Taken Unknown] pantoprazole 40 mg tablet,delayed release 40 mg PO DAILY #30 tabs 03/24/22 [Rx Last Taken Unknown] sucralfate 1 gram tablet 1 g PO 4X/DAY #56 tabs 03/24/22 [Rx Last Taken Unknown] fluconazole 200 mg tablet 200 mg PO DAILY #7 tabs 03/26/22 [Rx Last Taken Unknown] Allergy/AdvReac Type Severity Reaction Status Date / Time adhesive AdvReac RED Verified 10/24/22 22:15 amlodipine besylate AdvReac Nausea Verified 10/24/22 22:15 [From Lotrel] benazepril HCl [From Lotrel] AdvReac Nausea Verified 10/24/22 22:15 codeine AdvReac Nausea Verified 10/24/22 22:15 latex AdvReac RED Verified 10/24/22 22:15 Penicillins AdvReac Nausea Verified 10/24/22 22:15 Family History Brother Diabetes Heart disease Kidney disease Cancer Mother Diabetes Hypertension Thyroid disorder Surgical History History of cataract surgery History of colonoscopy History of hysterectomy History of skin surgery History of surgical procedure on mouth Social History Smoking Status: Former smoker alcohol intake: never substance use type: does not use additional social history: uses ibuprofen daily ROS ROS ED Constitutional Constitutional ED: Denies chills or fever(s) Eyes Eyes: Denies blurry vision or change in vision ENT ENT ED: Denies rhinorrhea or sore throat Cardiovascular Cardiovascular: Denies chest pain or palpitations Respiratory/Chest Respiratory/Chest: Denies cough or dyspnea Gastrointestinal Gastrointestinal: Denies nausea or vomiting Genitourinary Genitourinary ED: Denies dysuria or hematuria Musculoskeletal Musculoskeletal: Denies back pain or neck pain Integumentary Denies abscess or rash Neurologic Neurologic: Reports paresthesias and weakness; Denies headache(s) Allergic/Immunologic Allergic/Immunologic ED: Denies mouth swelling or urticaria EXAM Physical Exam Const Vital Signs: 10/24/22 22:08 Temperature 97.6 F L Temperature Source Temporal Pulse Rate 78 Respiratory Rate 15 Blood Pressure 164/81 H Blood Pressure Mean 108 Pulse Ox 97 Oxygen Delivery Method Room Air Positive well nourished, well developed and obese General Appearance ED: well developed and NAD Nutritional Appearance: obese HEENT Reports moist mucous membranes Neck full ROM and supple Extremity Extremity Narrative: There is tenderness and edema over the right ankle. There is no obvious deformity noted. Range of motion was limited in all motions of the right ankle secondary to pain. Sensation was intact to light touch in all digits. Capillary refill was less than 2 seconds in all digits. Pedal pulses are equal bilaterally. There is no tenderness over the proximal fibula. There is no tenderness over the fifth metatarsal. General Extremety ED: Yes weight-bearing difficulty General Extremity: weight-bearing difficulty Neuro oriented x3, CN's II-XII intact bilaterally, moves all extremities and no sensory deficits noted Sensorium / Orientation: alert Motor Exam: strength 5/5 throughout Psych mental status grossly normal Skin no wounds MDM MDM MDM Narrative Medical decision making narrative: Differential diagnosis includes sprain, fracture, and contusion. X-rays of the right ankle will be obtained to assess for fracture. Radiography Diagnostic Testing: Clinical Impression(s) from Imaging Studies Ankle X-Ray 10/24/22 22:20 IMPRESSION: Partially displaced bimalleolar right ankle fracture with mild ankle joint space widening/instability. Electronically Signed: Walt Woodward MD at 22:55 EDT , X-rays of the right ankle were obtained. There are 3 views. On my independent interpretation, there is a bimalleolar fracture with slight displacement of the talus and fracture fragments laterally. Radiologist also interpreted the x-rays and agrees. Management Discussion w/another healthcare provider: Cover Inspector (Dr. Umaña) Treatment and Re-Evaluation Narrative: Patient was given a dose of morphine here. Family and patient has concerns about going home. Patient states she has difficulty bearing weight on her left leg due to her multiple sclerosis. Patient and family are concerned about not being able to bear any weight on her right leg due to the fracture. Case was discussed with Dr. Umaña. He agrees with placing the patient in a posterior and sugar-tong splint. He recommended admitting the patient to the hospitalist service. Procedures Lower Extremity Splints Lower Extremity Splint: Orthoglass, Stirrup and - (And posterior) Splint Fabrication: Fabricated Location: Right Discharge Plan Triage Chief Complaint: Lower Extremity Injury ED Provider: Doron Brand Dx/Rx/DC Orders Clinical Impression: Bimalleolar fracture of right ankle, Multiple sclerosis Prescriptions: No Action sumatriptan succinate [Imitrex] 50 mg tablet 50 mg PO ONCE PRN (Reason: migraine headache) baclofen 20 MG tablet 30 mg PO TID cyanocobalamin (vitamin B-12) 1,000 MCG/ML solution 100 mcg IM Q30D ibuprofen 200 MG tablet 400 mg PO DAILY amitriptyline 100 MG tablet 100 mg PO QHS atenolol 50 MG tablet 75 mg PO QHS atenolol 50 MG tablet 50 mg PO DAILY cholecalciferol (vitamin D3) 50,000 UNIT capsule 50,000 unit PO TUTH tramadol 50 MG tablet 50 mg PO Q4H PRN PRN (Reason: Pain) bumetanide 2 MG tablet 2 mg PO BID ocrelizumab 300 MG/10 ML solution 300 mg IV Q6M Rx Instructions: every 6 months due November 2018. last had Jun 2018 amantadine HCl 100 MG capsule 100 mg PO BID potassium chloride 20 MEQ tablet,ER particles/crystals 20 meq PO DAILY Qty: 1 0RF sucralfate [sucralfate] 1 gram tablet 1 g PO 4X/DAY Qty: 56 0RF Rx Instructions: Take 1 hour before meals and at bedtime pantoprazole 40 mg tablet,delayed release (DR/EC) 40 mg PO DAILY Qty: 30 5RF fluconazole 200 mg tablet 200 mg PO DAILY Qty: 7 0RF Primary Care Provider: Walt La Referrals: Walt La DO [Primary Care Provider] -
--- NOTE | 2022-10-25 00:40 | PCM.HP.STD ---
HPI - General General Date of Admission: 10/25/22 Date of Service: 10/25/22 Chief Complaint: Right ankle pain HPI Narrative MEGGAN KITCHEN, is a 66 F with a significant history of multiple sclerosis who fell 3 times while doing gardening and then on the third fall heard some snapping and popping of her right ankle. She developed excruciating pain in her right ankle. Following that she came to emergency department. At baseline patient left leg is weak from multiple sclerosis and she supports herself with the right leg. With falling and injuring her right leg patient has more difficulty ambulating. Imaging at the emergency department found that her right leg has bimalleolar fracture. Emergency Department discussed the case with orthopedic surgeon who recommended that patient stays at the hospital for further management. Emergency department doctor splinted patient's right leg. [facility] Medical History Anxiety COVID-19 Difficulty swallowing Easy bruising Excessive bleeding Former smoker Gastric reflux History of edema History of GI bleed History of stress test Hoarseness Hypertension Influenza A bronchitis Leg cramps Migraine headache Multiple sclerosis Peripheral neuropathy PONV (postoperative nausea and vomiting) Shortness of breath on exertion Walker as ambulation aid Wears glasses Wears partial dentures Home Medications amitriptyline 100 mg tablet 100 mg PO QHS DEPRESSION 08/04/14 [History Last Taken 09/03/18] atenolol 50 mg tablet 50 mg PO DAILY BLOOD PRESSURE 08/04/14 [History Last Taken 03/24/22] atenolol 50 mg tablet 75 mg PO QHS BLOOD PRESSURE 08/04/14 [History Last Taken 09/03/18] baclofen 20 mg tablet 30 mg PO Q8 MS 08/04/14 [History Last Taken 09/03/18] cholecalciferol (vitamin D3) 1,250 mcg (50,000 unit) capsule 50,000 unit PO TUTH Supplement 08/04/14 [History Last Taken 09/03/18] cyanocobalamin (vitamin B-12) 1,000 mcg/mL injection solution 100 mcg IM Q30D SUPPLEMENT 08/04/14 [History Last Taken 09/03/18] ibuprofen 200 mg tablet 400 mg PO DAILY PAIN 08/04/14 [History Last Taken 09/03/18] tramadol 50 mg tablet 50 mg PO Q4H PRN PRN Pain 09/03/18 [History Last Taken Unknown] amantadine HCl 100 mg capsule 100 mg PO BID SPASMS 09/04/18 [History Last Taken Unknown] bumetanide 2 mg tablet 2 mg PO BID WATER PILL 09/04/18 [History Last Taken Unknown] ocrelizumab 30 mg/mL intravenous solution 300 mg IV Q6M MS 09/04/18 [History Last Taken Unknown] sumatriptan succinate 50 mg tablet (Imitrex) 50 mg PO ONCE PRN migraine headache 03/01/22 [History Last Taken Unknown] clonazepam 0.5 mg tablet (Klonopin) 0.5 mg PO QHS PRN Spasms 10/25/22 [History Last Taken Unknown] fluconazole 200 mg tablet 200 mg PO DAILY PRN INFECTION 10/25/22 [History Last Taken Unknown] pantoprazole 40 mg tablet,delayed release 40 mg PO DAILY STOMACH 10/25/22 [History Last Taken Unknown] potassium chloride 20 mEq tablet,extended release(part/cryst) 20 meq PO DAILY SUPPLEMENT 10/25/22 [History Last Taken Unknown] Allergy/AdvReac Type Severity Reaction Status Date / Time adhesive AdvReac RED Verified 10/24/22 22:15 amlodipine besylate AdvReac Nausea Verified 10/24/22 22:15 [From Lotrel] benazepril HCl [From Lotrel] AdvReac Nausea Verified 10/24/22 22:15 codeine AdvReac Nausea Verified 10/24/22 22:15 latex AdvReac RED Verified 10/24/22 22:15 Penicillins AdvReac Nausea Verified 10/24/22 22:15 Family History Brother Diabetes Heart disease Kidney disease Cancer Mother Diabetes Hypertension Thyroid disorder Surgical History History of cataract surgery History of colonoscopy History of hysterectomy History of skin surgery History of surgical procedure on mouth Social History Smoking Status: Former smoker alcohol intake: never substance use type: does not use additional social history: uses ibuprofen daily ROS ROS Narrative Pertinent positives and pertinent negatives as noted in HPI. All other systems were reviewed and are negative Vital Signs Vital Signs Vital Signs: 10/24/22 22:08 Temperature 97.6 F L Temperature Source Temporal Pulse Rate 78 Respiratory Rate 15 Blood Pressure 164/81 H Blood Pressure Mean 108 Pulse Ox 97 Oxygen Delivery Method Room Air Weight Weight: 104.6 kg Body Mass Index (BMI) 39.5 Physical Exam Narrative Physical exam: General: Well-nourished, well-developed. Head: Normocephalic, atraumatic, no tenderness Eyes: Vision is grossly intact. EOMI ENT, no trauma, moist mucous membranes, no rhinorrhea Neck: Nontender, No thyromegaly. CVS: Regular rate and rhythm. S1-S2 present. No murmur, gallop or rub. Respiratory : clear to auscultation bilaterally, chest wall nontender Abdomen: Soft, nontender, nondistended, normal bowel sounds, no masses : Deferred Back: Nontender, no CVA tenderness, no midline spinal tenderness, deformities, step-offs Extremities: Right leg splinted. Left leg with edema (chronic). Skin: Normal color, no trauma, abrasions Neuro: Alert, oriented, cranial nerves II through XII grossly intact. Psychiatry: Normal mood. Normal affect. Not depressed. Not anxious. Results Radiology Impression Ankle X-Ray 10/24/22 22:20 IMPRESSION: Partially displaced bimalleolar right ankle fracture with mild ankle joint space widening/instability. Electronically Signed: Walt Woodward MD at 22:55 EDT Reading Location ID and State: [facility] / [place] Tel , Service support , Assessment & Plan Assessment/Plan (1) Bimalleolar fracture of right ankle: PLAN: Plan Bimalleolar fracture of the right ankle Ankle x-ray was visualized and independently interpreted and I agree with radiologist interpretation of Partially displaced bimalleolar right ankle fracture with mild ankle joint space widening/instability. Emergent department doctor discussed the case with Dr. Umaña. Inpatient consult to podiatry. Morphine IV and oxycodone as needed ordered. Tylenol as needed ordered. Bowel protocol and antiemetics IV ordered. Keep n.p.o. While n.p.o. lactated Ringer's ordered. Check vitamin D level. ACS NSQIP surgical risk calculator with average cardiac complication risk but slightly higher any complication risk. Preoperative EKG ordered. If preoperative EKG is normal benefits will be considered moderate risk. Multiple sclerosis Stable; not in a flare Home medication continued DVT prophylaxis SCDs ordered Charges/Coding Visit Charges Inpatient E&M: 47078 Init Hosp L2
--- NOTE | 2022-10-25 01:03 | EKG12_ITS ---
Test Reason : PRE OP Blood Pressure : / mmHG Vent. Rate : 068 BPM Atrial Rate : 068 BPM P-R Int : 184 ms QRS Dur : 098 ms QT Int : 422 ms P-R-T Axes : 055 042 035 degrees QTc Int : 448 ms Normal sinus rhythm Normal ECG When compared with ECG of 14-MAY-2019 19:37, Nonspecific T wave abnormality no longer evident in Anterior leads Confirmed by JABIER MCGOWAN, DEONDRE ([id number]), restaurant expeditor PADILLA BARRETO ([id number]) on 10/27/2022 2:00:07 PM Referred By: GABRIEL Confirmed By:DEONDRE EUGENE MD
[2022-10-25] MEDS: Lactated Ringers 1,000 ML 75 ML IV ×2 (02:33→17:51)
[2022-10-25] MEDS: clonazePAM 0.5 MG Tablet PO ×2 (03:13→22:01)
[2022-10-25] MEDS: Acetaminophen 325 MG Tablet 650 MG PO ×2 (03:14→22:01)
[2022-10-25 06:36] LABS: Absolute Lymphocyte Count 0.94 X10^3/uL (0.83-4.51); Absolute Neutrophil Count 5.3 X10^3/uL (2.0-7.7); Basophil# 0.04 X10^3/uL; Basophil% 0.5 % (0-1); Eosinophil# 0.16 X10^3/uL; Eosinophils% 2.2 % (0-5); Hematocrit 35.2 % (37-47); Hemoglobin 11.4 g/dL (12.0-15.0); Lymphocyte # 0.94 X10^3/ul (0.83-4.51); Lymphocyte % 12.7 % (19-41); Mean Corp Hgb Conc 32.4 g/dL (32-36); Mean Corpuscular Hgb 32.1 pg (27.0-32.0); Mean Corpuscular Volume 99.2 fL (81-99); Mean Platelet Vol. 11.5 fl (6.2-12.0); Monocyte# 0.92 X10^3/uL; Monocyte% 12.4 % (0-10); NRBC Flagged by Analyzer 0 % (0-5); Neutrophil # 5.32 X10^3/uL (2.7-7.7); Neutrophil % 71.9 % (47-70); Platelet Count 146 K/mm3 (150-450); RBC Distribution Width CV 13.5 % (11.6-14.6); Red Blood Count 3.55 M/mm3 (4.2-5.4); White Blood Count 7.4 K/mm3 (4.4-11.0)
[2022-10-25 07:05] LABS: Anion Gap 7 (5-15); BUN 17 mg/dL (7-18); BUN/Creat Ratio 19.2 RATIO (10-20); Calcium,Total 8.8 mg/dL (8.5-10.1); Chloride 110 mmol/L (98-107); Creatinine, Serum 0.89 mg/dL (0.55-1.02); EST Glomerular Filtration Rate 68 mL/min (>60); Est Glom Filt Rate - Afr Amer 82 mL/min (>60); Estimated Creatinine Clearance 54.42 ml/min; Glucose 89 mg/dL (74-106); Potassium 3.2 mmol/L (3.5-5.1); Sodium Level 145 mmol/L (136-145)
[2022-10-25] MEDS: Baclofen 10 MG Tablet 30 MG PO ×2 (07:33→20:20)
[2022-10-25] MEDS: Potassium Chloride Oral Tablet 20 MEQ PO (07:45)
[2022-10-25 09:01] LABS: Vitamin D,25 Hydroxy 48.2 ng/mL
[2022-10-25] MEDS: Atenolol 50 MG Tablet PO (09:16)
[2022-10-25] MEDS: Potassium Chloride Oral Tablet 20 MEQ 40 MEQ PO (09:16)
[2022-10-25] MEDS: Pantoprazole Sodium 40 MG Tablet PO (09:16)
[2022-10-25] MEDS: Bumetanide 2 MG Tablet PO ×2 (09:46→17:51)
[2022-10-25] MEDS: Amantadine 100 MG Capsule PO ×2 (09:46→20:20)
[2022-10-25] MEDS: Ibuprofen 200 MG Tablet 400 MG PO (09:46)
--- NOTE | 2022-10-25 10:10 | CASEMGMT ---
DREAD ALEMAN Discharge Planning Assessment: Face to Face with patient for initial transition planning/care coordination assessment.?DREAD ALEMAN introduced self and role at [facility], pt alert, oriented x4, voices understanding and is agreeable to participating in assessment with her daughter Marita at bedside.? Care providers, pharmacy,?and demographics verified. ? Admitting dx: bimalleolar right ankle fx. PCP: Bessie Specialists: Taran (MS specialist) Preferred Pharmacy: [facility] retail Insurance: MCR A/B, [employer] supplement Prescription Benefit:?yes Living Will/HPOA: pt states she has them but they are not up to date and is not interested in updating at this time. LNOK: spouse William Living Arrangements: Pt lives with spouse in a single story home with 2-3 steps to enter. Pt has been independent with self care and household tasks. 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 Transportation: Pt utilizes family, friends, neighbors, taxis and [employer] for transportation when needed DME: rollator, crutches, scooter, golf cart, shower chair, BSC, handicap toilet, grab bars, hand held shower, lift chair SNF/HHC: pt denies any previous providers. ? Pt's goal: Return home with support of family. States she has many grandchildren who are available and children that can assist and spouse has vacation time available. Pt also mentioned going to a rehab floor here at [facility] at discharge prior to returning home. Noted pt is weak on her left side at baseline and relies on her right side to bear weight. Pt's fx is on her right side. Will continue to monitor pt's progress with therapy postoperatively for determination of appropriate discharge disposition. Maximo Mccauley RN CM
--- NOTE | 2022-10-25 11:56 | PCM.CONS.GEN ---
Assessment & Plan Assessment/Plan (1) Bimalleolar fracture of right ankle: PLAN: Exam performed Radiographs taken/reviewed Discussed treatment with patient in great detail. Discussed surgical intervention to stabilize the right ankle and reduce the fracture fragments to allow for patient to return to ambulation. Patient wishes to proceed. All inherent risks benefits and alternative treatments discussed with patient in great detail. We will plan for ORIF right ankle fracture today at 1:30 PM. Consider outpatient bracing left ankle for dropfoot deformity to allow for stabilization. Plan at current is to have patient completely nonweightbearing in a wheelchair due to MS and instability in general. HPI Consult Data Date of Consult: 10/25/22 HPI Narrative HPI Narrative: MEGGAN KITCHEN, is a 66 F who presents after she fell in her garden last night. Patient fell a second time and Presented to the ED. Radiographs were taken demonstrated mildly displaced bimalleolar right ankle fracture. Patient admitted due to gait instability secondary to patient's neuropathy and MS. [facility] Medical History Anxiety COVID-19 Difficulty swallowing Easy bruising Excessive bleeding Former smoker Gastric reflux History of edema History of GI bleed History of stress test Hoarseness Hypertension Influenza A bronchitis Leg cramps Migraine headache Multiple sclerosis Peripheral neuropathy PONV (postoperative nausea and vomiting) Shortness of breath on exertion Walker as ambulation aid Wears glasses Wears partial dentures Home Medications amitriptyline 100 mg tablet 100 mg PO QHS DEPRESSION 08/04/14 [History Last Taken 09/03/18] atenolol 50 mg tablet 50 mg PO DAILY BLOOD PRESSURE 08/04/14 [History Last Taken 03/24/22] atenolol 50 mg tablet 75 mg PO QHS BLOOD PRESSURE 08/04/14 [History Last Taken 09/03/18] baclofen 20 mg tablet 30 mg PO Q8 MS 08/04/14 [History Last Taken 09/03/18] cholecalciferol (vitamin D3) 1,250 mcg (50,000 unit) capsule 50,000 unit PO TUTH Supplement 08/04/14 [History Last Taken 09/03/18] cyanocobalamin (vitamin B-12) 1,000 mcg/mL injection solution 100 mcg IM Q30D SUPPLEMENT 08/04/14 [History Last Taken 09/03/18] ibuprofen 200 mg tablet 400 mg PO DAILY PAIN 08/04/14 [History Last Taken 09/03/18] tramadol 50 mg tablet 50 mg PO Q4H PRN PRN Pain 09/03/18 [History Last Taken Unknown] amantadine HCl 100 mg capsule 100 mg PO BID SPASMS 09/04/18 [History Last Taken Unknown] bumetanide 2 mg tablet 2 mg PO BID WATER PILL 09/04/18 [History Last Taken Unknown] ocrelizumab 30 mg/mL intravenous solution 300 mg IV Q6M MS 09/04/18 [History Last Taken Unknown] sumatriptan succinate 50 mg tablet (Imitrex) 50 mg PO ONCE PRN migraine headache 03/01/22 [History Last Taken Unknown] clonazepam 0.5 mg tablet (Klonopin) 0.5 mg PO QHS PRN Spasms 10/25/22 [History Last Taken Unknown] fluconazole 200 mg tablet 200 mg PO DAILY PRN INFECTION 10/25/22 [History Last Taken Unknown] pantoprazole 40 mg tablet,delayed release 40 mg PO DAILY STOMACH 10/25/22 [History Last Taken Unknown] potassium chloride 20 mEq tablet,extended release(part/cryst) 20 meq PO DAILY SUPPLEMENT 10/25/22 [History Last Taken Unknown] Allergy/AdvReac Type Severity Reaction Status Date / Time adhesive AdvReac RED Verified 10/24/22 22:15 amlodipine besylate AdvReac Nausea Verified 10/24/22 22:15 [From Lotrel] benazepril HCl [From Lotrel] AdvReac Nausea Verified 10/24/22 22:15 codeine AdvReac Nausea Verified 10/24/22 22:15 latex AdvReac RED Verified 10/24/22 22:15 Penicillins AdvReac Nausea Verified 10/24/22 22:15 Family History Brother Diabetes Heart disease Kidney disease Cancer Mother Diabetes Hypertension Thyroid disorder Surgical History History of cataract surgery History of colonoscopy History of hysterectomy History of skin surgery History of surgical procedure on mouth Social History Smoking Status: Former smoker alcohol intake: never substance use type: does not use additional social history: uses ibuprofen daily Physical Exam Narrative Dorsalis pedis posterior tibial pulses palpable 2 out of 4 bilateral feet. Capillary fill time brisk to all digits. Light touch protective sensation absent to bilateral feet. Foot drop noted to left lower extremity secondary to weak dorsiflexion in setting of MS. Diffuse right ankle pain right side. Const alert and oriented x3 Lab / Micro Data Result Diagrams: 10/25/22 06:15 10/25/22 06:15 Labs: Laboratory Results - last 24 hr 10/25/22 06:15: Vitamin D 25-Hydroxy 48.2 10/25/22 06:15: WBC 7.4, RBC 3.55 L, Hgb 11.4 L, Hct 35.2 L, MCV 99.2 H, MCH 32.1 H, MCHC 32.4, RDW Std Deviation 50.0 H, RDW Coeff of Caty 13.5, Plt Count 146 L, MPV 11.5, Immature Gran % (Auto) 0.300, Neut % (Auto) 71.9 H, Lymph % (Auto) 12.7 L, [place] % (Auto) 12.4 H, Eos % (Auto) 2.2, Baso % (Auto) 0.5, Absolute Neuts (auto) 5.3, Absolute Lymphs (auto) 0.94, Nucleated RBC % 0 10/25/22 06:15: Sodium 145, Potassium 3.2 L, Chloride 110 H, Carbon Dioxide 28.0, Anion Gap 7, BUN 17, Creatinine 0.89, Estim Creat Clear Calc 54.42, Est GFR (MDRD) Af Amer 82, Est GFR (MDRD) Non-Af 68, BUN/Creatinine Ratio 19.2, Glucose 89, Calcium 8.8 Radiology Impression Ankle X-Ray 10/24/22 22:20 IMPRESSION: Partially displaced bimalleolar right ankle fracture with mild ankle joint space widening/instability. Electronically Signed: Walt Woodward MD at 22:55 EDT ,
--- NOTE | 2022-10-25 12:07 | CASEMGMT ---
Social Work SW received referral from for possible inpatient rehab unit at discharge. SW met with pt and her daughter and explained the Inpatient Rehab unit. Pt is interested in [facility] if unable to return home after surgery. A list of inpatient rehab providers including quality and resource use data and consistent with the patient?s preferred geographic region, medical needs, and insurance network were provided from the [employer] Guide. If needed, preferred provider is [facility]. SW requested pt name be added to [facility] referral list. ADIN will follow up tomorrow after surgery and therapy. ROSIE Mitchell
[2022-10-25] MEDS: Clindamycin 900 MG/50 ML BAG 75 MG IV (13:39)
[2022-10-25] MEDS: Bupivacaine Mpf 0.5% 30 ML VIAL ×2 (14:00→16:25)
--- NOTE | 2022-10-25 14:00 | RAD_ITS ---
INDICATION: ORIF ankle EXAMINATION/TECHNIQUE: X-RAY - RIGHT XR Ankle 2 Views 21 VIEWS COMPARISON: 10/24/2022 FINDINGS: Multiple fluoroscopic spot films were obtained during ORIF of the right ankle. Please refer to the operative report for details of the procedure. Total fluoroscopic time: 94.5 seconds RAD/Ankle 2 Views IMPRESSION: Intraoperative spot films obtained during ORIF right ankle. Electronically Signed: Jamey Caballero MD at 18:21 EDT ,
--- NOTE | 2022-10-25 14:14 | PN_ITS ---
Subjective Subjective Patient seen and examined. She was admitted with a complaint of mechanical fall while doing some gardening. On the third fall she had a snapping and popping of her right ankle with excruciating pain. On admission she was found to have a bimalleolar fracture. She had the leg splinted in the ED and has been admitted to be managed for right lower extremity malleolar fracture. Pain is well controlled. She had no acute complaints. Review of systems otherwise negative. Labs and vitals reviewed. She has remained hemodynamically stable. Objective Data Objective Data Vital Signs: Vital Signs Temp Pulse Resp BP Pulse Ox O2 Del Method 97.9 F 63 18 136/59 H 94 Room Air 10/25/22 08:30 10/25/22 08:30 10/25/22 08:30 10/25/22 08:30 10/25/22 11:00 10/25/22 11:00 Oxygen Delivery Method Room Air Weight: 219 lb 4.8 oz Body Mass Index (BMI) 37.6 Intake & Output: Intake and Output for Last 24 Hours 10/23/22 10/24/22 10/25/22 23:59 23:59 23:59 Intake Total 350 / 350 Output Total 1100 / 1100 Balance -750 / -750 Lab / Micro Data Result Diagrams: 10/25/22 06:15 10/25/22 06:15 Labs: Laboratory Results - last 24 hr 10/25/22 06:15: Vitamin D 25-Hydroxy 48.2 10/25/22 06:15: WBC 7.4, RBC 3.55 L, Hgb 11.4 L, Hct 35.2 L, MCV 99.2 H, MCH 32.1 H, MCHC 32.4, RDW Std Deviation 50.0 H, RDW Coeff of Caty 13.5, Plt Count 146 L, MPV 11.5, Immature Gran % (Auto) 0.300, Neut % (Auto) 71.9 H, Lymph % (Auto) 12.7 L, [place] % (Auto) 12.4 H, Eos % (Auto) 2.2, Baso % (Auto) 0.5, Absolute Neuts (auto) 5.3, Absolute Lymphs (auto) 0.94, Nucleated RBC % 0 10/25/22 06:15: Sodium 145, Potassium 3.2 L, Chloride 110 H, Carbon Dioxide 28.0, Anion Gap 7, BUN 17, Creatinine 0.89, Estim Creat Clear Calc 54.42, Est GFR (MDRD) Af Amer 82, Est GFR (MDRD) Non-Af 68, BUN/Creatinine Ratio 19.2, Glucose 89, Calcium 8.8 Radiography Diagnostic Testing: Radiology Impression Ankle X-Ray 10/24/22 22:20 IMPRESSION: Partially displaced bimalleolar right ankle fracture with mild ankle joint space widening/instability. Electronically Signed: Walt Woodward MD at 22:55 EDT , Physical Exam Const alert, oriented x3 and no apparent distress HEENT normocephalic and moist oral mucous membranes Eyes PERRL and EOMs intact bilaterally Neck no lymphadenopathy, supple and no JVD Lymph Lymphatic: no lymphadenopathy noted and no lymphedema noted Resp normal respiratory effort, normal air movement and clear to auscultation bilaterally Cardio regular rate, regular rhythm, S1 normal heart sound and S2 normal heart sound GI normal to inspection, nondistended, normoactive bowel sounds, soft to palpation, non-tender and non-distended Extremity Extremity Narrative: RLE wrapped in splint. Skin General Skin Exam: no breakdown and turgor normal Neuro CN's II-XII intact bilaterally, no focal motor deficits and no sensory deficits noted Psych thought process normal Appearance: appropriate Assessment & Plan Assessment/Plan (1) Bimalleolar fracture of right ankle: PLAN: Plan #RLE bilateral malleolar fracture due to mechanical fall * X-ray of the right ankle showed partial displaced by malleolar right ankle fracture with mild ankle joint space widening and instability * PT/OT on board * IV morphine and PO oxycodone for pain * podiatry on board. * fall precautions * for surgery today. * #Multiple sclerosis: stable. On ocrelizumab. #HYpertension;on amlodipine and atenolol. also on bumex. #History of migraines: on sumatriptan DVT prophylaxis: lovenox Charges/Coding Visit Charges Inpatient E&M: 18434 Subs Hosp L2
[2022-10-25] MEDS: Bacitracin 500 UNITS/GM PACKET (16:24)
--- NOTE | 2022-10-25 16:45 | OP.PCM_ITS ---
Problems Associated Problem List Diagnoses (1) Bimalleolar fracture of right ankle: Report of Operation Date of Procedure: 10/25/22 Pre-Operative Diagnosis: 1) Closed, displaced, bimalleolar ankle fracture, right side Post-Operative Diagnosis: 1) same Surgery/Procedure Performed:: Open reduction internal fixation right ankle fracture Description of Surgical Findings:: Patient suffered a displaced bimalleolar fracture with posterior lateral dislocation. 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 Patient fell while gardening. Patient seen in ER confirmed to have bimalleolar ankle fracture. Patient admitted due to gait instability in setting of multiple sclerosis with bimalleolar right ankle fracture. Decision for open reduction internal fixation discussed with patient and family and proceeded with today. Goal is early return to ambulation and function. Surgeon: Juan Manuel Umaña pest control worker helper: None (nely awad) Type of Anesthesia: General Special Medications: 40 cc half percent Marcaine plain Specimen's removed: None Drains: None Estimated Blood Loss (mL): Minimal Description of Procedure: Patient brought back to the operating placed comfortably in supine position operating room table. Patient induced under general anesthesia. Right lower extremity had a well-padded thigh tourniquet applied was positioned with a hip bump to knock out any external rotation. All osseous prominences offloaded prevent the compression neuropraxia. Right lower extremity scrubbed prepped draped using typical aseptic fashion. Once cleared by anesthesia right lower extremity was elevated exsanguinated tourniquet was inflated 300 mmHg. Total tourniquet time was noted to be 94 minutes. Tourniquet was let down prior to incisional closure. Using fluoroscopic imaging the ankle joint was mapped out as well as the distal fibula direct lateral incision down to the level of bone was made with a 15 blade t hrough skin dermis subcutaneous tissue down to the level of periosteum. The distal fibular fracture was dissected out and a fracture hematoma was curetted and flushed to allow for adequate apposition of the fracture fragments. There is noted to be an anterior lateral distal tibial fracture at the level of the distal syndesmotic ligaments. Likely avulsion from these ligaments. Distal fibular fracture was reduced after the distal fibular locking plate was locked down using 3 screws. The fibular fracture was then manually reduced and stabilized using [id number] bone tenaculums across the distal tibiofibular joint. This reduction was confirmed intraoperatively as well as with fluoroscopic imaging. Next 5 nonlocking screws were placed to stabilize the proximal aspect of plate using manufactures guidelines. Due to distal tibiofibular avulsion fragment at the tibiofibular ligaments the syndesmosis was stabilized as testing demonstrated instability with hook testing. 2 syndesmotic screws were placed at the level of the syndesmosis quad cortical from lateral to medial through the plate. Percutaneously the medial malleolar fracture was reduced and pinned in place using guidepins for 4 5 partially-threaded cannulated screws. This confirmed with AP and lateral fluoroscopic imaging as well as live fluoroscopic imaging did not note adequate contour of the medial malleolar fragment. These 2 screws were placed noted to be 68 mm in length. Using fluoroscopic imaging final radiographs were taken and demonstrated adequate reduction of the fibular fracture with maintenance of fibular length maintenance of the ankle mortise as well as reduction of the medial malleolus fracture fragment. Tourniquet was then deflated total tourniquet time was noted be 94 minutes. Incisional sites were flushed with copious amounts of normal sterile saline as well as a Betadine mixture. Incisional closure was performed medially with daphney. Lateral incision was closed with simple interrupted buried deep 2-0 Vicryl followed by running subcutaneous closure with 2-0 Vicryl followed by skin closure with daphney. Incisions were dressed with bacitracin Adaptic 4 x 4's Kerlix ABD pads and a well-padded AO splint. Should be noted that prior to incisional standard ankle block was performed with 10 cc half percent Marcaine plain. An additional 4 cc 30 cc of half percent Marcaine plain was injected at the end of the case. Patient tolerated procedure well and anesthesia well in apparent satisfactory condition was transferred to PACU vital signs stable vascular status intact all digits for further monitoring prior to transfer back to floor. Patient will be followed daily. No complications. There is questionable contamination with the trays. This was removed from the surgical site. Surgical site was reprepped. Flushed with Irrisept. All individuals rescrubbed and draped prior to continuing the case. Grafts/Implants Used: Douglas distal fibular locking plate with screws to medial malleolus or per Complications none Admit VTE Documentation VTE Present on Admission: Yes VTE Mechan Device Prophylaxis: SCD's VTE Pharm Prophylaxis ordered?: Yes
[2022-10-25] MEDS: Lactated Ringers 1,000 ML 15 ML IV (17:04)
[2022-10-25] MEDS: Atenolol 25 MG Tablet 75 MG PO (20:20)
[2022-10-26 03:00] VITALS: BP 132/57; PULSE 71; RESP 18; TEMP 36.8; O2SAT 96
[2022-10-26 06:42] LABS: Absolute Lymphocyte Count 0.67 X10^3/uL (0.83-4.51); Absolute Neutrophil Count 9.5 X10^3/uL (2.0-7.7); Basophil# 0.01 X10^3/uL; Basophil% 0.1 % (0-1); Hematocrit 35.1 % (37-47); Hemoglobin 11.8 g/dL (12.0-15.0); Lymphocyte # 0.67 X10^3/ul (0.83-4.51); Lymphocyte % 6.1 % (19-41); Mean Corp Hgb Conc 33.6 g/dL (32-36); Mean Corpuscular Hgb 32.9 pg (27.0-32.0); Mean Corpuscular Volume 97.8 fL (81-99); Mean Platelet Vol. 11.3 fl (6.2-12.0); Monocyte% 7.2 % (0-10); NRBC Flagged by Analyzer 0 % (0-5); Neutrophil # 9.53 X10^3/uL (2.7-7.7); Neutrophil % 86.1 % (47-70); Platelet Count 156 K/mm3 (150-450); RBC Distribution Width CV 13.5 % (11.6-14.6); RBC Distribution Width SD 48.3 fl (35.1-43.9); Red Blood Count 3.59 M/mm3 (4.2-5.4); White Blood Count 11.1 K/mm3 (4.4-11.0)
[2022-10-26] MEDS: Baclofen 10 MG Tablet 30 MG PO ×2 (06:42→13:48)
[2022-10-26 07:13] LABS: Anion Gap 6 (5-15); BUN 14 mg/dL (7-18); BUN/Creat Ratio 16.8 RATIO (10-20); Calcium,Total 8.3 mg/dL (8.5-10.1); Chloride 106 mmol/L (98-107); Creatinine, Serum 0.84 mg/dL (0.55-1.02); EST Glomerular Filtration Rate 73 mL/min (>60); Est Glom Filt Rate - Afr Amer 88 mL/min (>60); Estimated Creatinine Clearance 57.66 ml/min; Glucose 105 mg/dL (74-106); Potassium 3.5 mmol/L (3.5-5.1); Sodium Level 141 mmol/L (136-145)
[2022-10-26] MEDS: Potassium Chloride Oral Tablet 20 MEQ PO (08:02)
[2022-10-26] MEDS: Atenolol 50 MG Tablet PO (08:02)
[2022-10-26] MEDS: Bumetanide 2 MG Tablet PO ×2 (08:02→17:36)
[2022-10-26] MEDS: Ibuprofen 200 MG Tablet 400 MG PO (08:02)
[2022-10-26] MEDS: Pantoprazole Sodium 40 MG Tablet PO (08:02)
[2022-10-26] MEDS: Ergocalciferol 1.25 MG (50, 000 UNIT) Capsule PO (08:03)
[2022-10-26] MEDS: Amantadine 100 MG Capsule PO ×2 (08:03→21:50)
[2022-10-26 08:15] VITALS: BP 126/58; PULSE 70; RESP 18; TEMP 36.8; O2SAT 98
--- NOTE | 2022-10-26 13:18 | PN_ITS ---
Subjective Subjective 66F seen 1 day post op. pain controlled. no consittutionals. patient voiding through catheter. passing gas. Objective Data Objective Data Vital Signs: Vital Signs Temp Pulse Resp BP Pulse Ox O2 Del Method 98.2 F 70 18 126/58 H 98 Room Air 10/26/22 08:15 10/26/22 08:15 10/26/22 08:15 10/26/22 08:15 10/26/22 08:15 10/26/22 08:15 Oxygen Delivery Method Room Air Weight: 99.473 kg Body Mass Index (BMI) 37.6 Intake & Output: Intake and Output for Last 24 Hours 10/24/22 10/25/22 10/26/22 23:59 23:59 23:59 Intake Total 1414.75 / 1414.75 747.5 / 747.5 Output Total 3500 / 3500 450 / 450 Balance -2085.25 / -2085.25 297.5 / 297.5 Lab / Micro Data Result Diagrams: 10/26/22 06:23 10/26/22 06:23 Labs: Laboratory Results - last 24 hr 10/26/22 06:23: WBC 11.1 H, RBC 3.59 L, Hgb 11.8 L, Hct 35.1 L, MCV 97.8, MCH 32.9 H, MCHC 33.6, RDW Std Deviation 48.3 H, RDW Coeff of Caty 13.5, Plt Count 156, MPV 11.3, Immature Gran % (Auto) 0.500, Neut % (Auto) 86.1 H, Lymph % (Auto) 6.1 L, [place] % (Auto) 7.2, Eos % (Auto) 0.0, Baso % (Auto) 0.1, Absolute Neuts (auto) 9.5 H, Absolute Lymphs (auto) 0.67 L, Nucleated RBC % 0 10/26/22 06:23: Sodium 141, Potassium 3.5, Chloride 106, Carbon Dioxide 29.0, Anion Gap 6, BUN 14, Creatinine 0.84, Estim Creat Clear Calc 57.66, Est GFR (MDRD) Af Amer 88, Est GFR (MDRD) Non-Af 73, BUN/Creatinine Ratio 16.8, Glucose 105, Calcium 8.3 L Radiography Diagnostic Testing: Radiology Impression Ankle X-Ray 10/25/22 14:00 IMPRESSION: Intraoperative spot films obtained during ORIF right ankle. Electronically Signed: Jamey Caballero MD at 18:21 EDT , Physical Exam Narrative NV status intact to digits on right no pain with calf squeeze splint intact on right patient able to move digits actively Const alert and oriented x3 Assessment & Plan Assessment/Plan (1) Bimalleolar fracture of right ankle: PLAN: Exam performed patient doing well continue NWB on right for 4 weeks will follow patient weekly if dc'd to TCU vs in two weeks outpatient recommend lovenox on dc for DVT prophylaxis
--- NOTE | 2022-10-26 13:32 | PCM.PROGNOTE ---
Subjective Subjective Patient seen and examined. She complained of some spasms in her right leg. However, she didnt have any pain in her right leg. She has no other complaints. Today is POD 1 of ORIF of the right ankle bimalleolar fracture. Objective Data Objective Data Vital Signs: Vital Signs Temp Pulse Resp BP Pulse Ox O2 Del Method 98.2 F 70 18 126/58 H 98 Room Air 10/26/22 08:15 10/26/22 08:15 10/26/22 08:15 10/26/22 08:15 10/26/22 08:15 10/26/22 08:15 Oxygen Delivery Method Room Air Weight: 219 lb 4.8 oz Body Mass Index (BMI) 37.6 Intake & Output: Intake and Output for Last 24 Hours 10/24/22 10/25/22 10/26/22 23:59 23:59 23:59 Intake Total 1414.75 / 1414.75 747.5 / 747.5 Output Total 3500 / 3500 450 / 450 Balance -2085.25 / -2085.25 297.5 / 297.5 Lab / Micro Data Result Diagrams: 10/26/22 06:23 10/26/22 06:23 Labs: Laboratory Results - last 24 hr 10/26/22 06:23: WBC 11.1 H, RBC 3.59 L, Hgb 11.8 L, Hct 35.1 L, MCV 97.8, MCH 32.9 H, MCHC 33.6, RDW Std Deviation 48.3 H, RDW Coeff of Caty 13.5, Plt Count 156, MPV 11.3, Immature Gran % (Auto) 0.500, Neut % (Auto) 86.1 H, Lymph % (Auto) 6.1 L, [place] % (Auto) 7.2, Eos % (Auto) 0.0, Baso % (Auto) 0.1, Absolute Neuts (auto) 9.5 H, Absolute Lymphs (auto) 0.67 L, Nucleated RBC % 0 10/26/22 06:23: Sodium 141, Potassium 3.5, Chloride 106, Carbon Dioxide 29.0, Anion Gap 6, BUN 14, Creatinine 0.84, Estim Creat Clear Calc 57.66, Est GFR (MDRD) Af Amer 88, Est GFR (MDRD) Non-Af 73, BUN/Creatinine Ratio 16.8, Glucose 105, Calcium 8.3 L Radiography Diagnostic Testing: Radiology Impression Ankle X-Ray 10/25/22 14:00 IMPRESSION: Intraoperative spot films obtained during ORIF right ankle. Electronically Signed: Jamey Caballero MD at 18:21 EDT Reading Location ID and State: [address] [place] [address] Tel , Service support , Physical Exam Const alert, oriented x3 and no apparent distress General Appearance: cooperative and well developed HEENT normocephalic and moist oral mucous membranes Eyes PERRL and EOMs intact bilaterally Neck no lymphadenopathy, supple and no JVD Lymph Lymphatic: no lymphadenopathy noted and no lymphedema noted Resp normal respiratory effort, normal air movement and clear to auscultation bilaterally Cardio regular rate, regular rhythm, S1 normal heart sound and S2 normal heart sound GI normal to inspection, nondistended, normoactive bowel sounds, soft to palpation, non-tender and non-distended Extremity Extremity Narrative: RLE wrapped in splint. Skin General Skin Exam: no breakdown and turgor normal Neuro CN's II-XII intact bilaterally, no focal motor deficits and no sensory deficits noted Psych thought process normal Appearance: appropriate Assessment & Plan Assessment/Plan (1) Bimalleolar fracture of right ankle: PLAN: Plan #RLE bilateral malleolar fracture due to mechanical fall Today's postop day 1 for open reduction and internal fixation of right bimalleolar ankle fracture Is complaining of spasms in her right foot. Right foot wrapped in a cast. PT/OT on board IV morphine and PO oxycodone for pain podiatry on board. fall precautions #Multiple sclerosis: stable. On ocrelizumab. Complains of spasms in her foot. She is concerned that this might interfere with this entity of her surgical site. On baclofen 30 mg 3 times daily. Says it is helped by Klonopin which she takes at night. She is currently maxed out on baclofen. Will monitor spasms for now #HYpertension;on amlodipine and atenolol. also on bumex. #History of migraines: on sumatriptan DVT prophylaxis: lovenox Disposition: Will likely need to go to rehab facility. Charges/Coding Visit Charges Inpatient E&M: 65709 Subs Hosp L2
[2022-10-26] MEDS: Enoxaparin 40 MG/0.4 ML Syringe SC (13:51)
[2022-10-26 14:20] VITALS: BP 135/56; PULSE 70; RESP 18; TEMP 36.9; O2SAT 99
--- NOTE | 2022-10-26 15:45 | CASEMGMT ---
Social Work SW reviewed therapy notes and spoke with pt. Pt requesting admission to Inpatient Rehab. Referral made to [facility] in [facility] and a bed is not available. SW updated pt and reviewed list of other RU's. Pt does not want to leave the [place] area. A list of SNF providers including quality and resource use data and consistent with the patient?s preferred geographic region, medical needs, and insurance network were provided from the [employer] Guide. Pt preferred provider is [facility]. Referral made to [facility] in TCU and they are able to accept. Pt updated and agreeable. Plan: TCU, on [facility]
[2022-10-26 21:44] VITALS: BP 126/55; PULSE 65; RESP 18; TEMP 37; O2SAT 95
[2022-10-26] MEDS: Atenolol 25 MG Tablet 75 MG PO (21:50)
[2022-10-26] MEDS: Senna/Docusate Sodium 1 Tablet 2 TABLET PO (21:50)
[2022-10-26] MEDS: clonazePAM 0.5 MG Tablet PO (21:50)
[2022-10-27] MEDS: Baclofen 10 MG Tablet 30 MG PO ×3 (01:23→21:12)
[2022-10-27] MEDS: Amitriptyline 100 MG Tablet PO ×2 (01:23→21:12)
[2022-10-27 04:30] VITALS: BP 118/58; PULSE 68; RESP 18; TEMP 36.8; O2SAT 95
[2022-10-27 08:00] LABS: Absolute Lymphocyte Count 0.86 X10^3/uL (0.83-4.51); Absolute Neutrophil Count 5.5 X10^3/uL (2.0-7.7); Basophil# 0.06 X10^3/uL; Basophil% 0.8 % (0-1); Eosinophil# 0.13 X10^3/uL; Eosinophils% 1.7 % (0-5); Hematocrit 34.3 % (37-47); Hemoglobin 10.8 g/dL (12.0-15.0); Lymphocyte # 0.86 X10^3/ul (0.83-4.51); Lymphocyte % 11.5 % (19-41); Mean Corp Hgb Conc 31.5 g/dL (32-36); Mean Corpuscular Hgb 31.4 pg (27.0-32.0); Mean Corpuscular Volume 99.7 fL (81-99); Mean Platelet Vol. 11.7 fl (6.2-12.0); NRBC Flagged by Analyzer 0 % (0-5); Neutrophil # 5.47 X10^3/uL (2.7-7.7); Neutrophil % 73.3 % (47-70); Platelet Count 133 K/mm3 (150-450); RBC Distribution Width CV 13.5 % (11.6-14.6); RBC Distribution Width SD 49.6 fl (35.1-43.9); Red Blood Count 3.44 M/mm3 (4.2-5.4); White Blood Count 7.5 K/mm3 (4.4-11.0)
[2022-10-27 08:18] LABS: Anion Gap 5 (5-15); BUN 15 mg/dL (7-18); BUN/Creat Ratio 16.5 RATIO (10-20); Calcium,Total 8.4 mg/dL (8.5-10.1); Chloride 109 mmol/L (98-107); Creatinine, Serum 0.91 mg/dL (0.55-1.02); EST Glomerular Filtration Rate 66 mL/min (>60); Est Glom Filt Rate - Afr Amer 80 mL/min (>60); Estimated Creatinine Clearance 53.22 ml/min; Glucose 89 mg/dL (74-106); Potassium 3.1 mmol/L (3.5-5.1); Sodium Level 143 mmol/L (136-145)
[2022-10-27] MEDS: Potassium Chloride Oral Tablet 20 MEQ PO (08:25)
[2022-10-27] MEDS: Enoxaparin 40 MG/0.4 ML Syringe SC (08:42)
[2022-10-27] MEDS: Pantoprazole Sodium 40 MG Tablet PO (08:42)
[2022-10-27] MEDS: Ibuprofen 200 MG Tablet 400 MG PO (08:42)
[2022-10-27] MEDS: Atenolol 50 MG Tablet PO (08:43)
[2022-10-27] MEDS: Amantadine 100 MG Capsule PO ×2 (08:43→21:12)
[2022-10-27] MEDS: Bumetanide 2 MG Tablet PO ×2 (08:44→18:06)
[2022-10-27 08:57] VITALS: BP 110/48; PULSE 68; RESP 18; TEMP 37.1; O2SAT 97
[2022-10-27 09:47] VITALS: O2SAT 95
--- NOTE | 2022-10-27 10:49 | PN_ITS ---
Subjective Subjective Patient seen and examined. She had no complaints today. Pain was well controlled. Spasms of right foot have also improved. Review of systems is otherwise negative. Objective Data Objective Data Vital Signs: Vital Signs Temp Pulse Resp BP Pulse Ox O2 Del Method 98.7 F 68 18 110/48 L 95 Room Air 10/27/22 08:57 10/27/22 08:57 10/27/22 08:57 10/27/22 08:57 10/27/22 09:47 10/27/22 10:00 Oxygen Delivery Method Room Air Weight: 219 lb 4.8 oz Body Mass Index (BMI) 37.6 Intake & Output: Intake and Output for Last 24 Hours 10/25/22 10/26/22 10/27/22 23:59 23:59 23:59 Intake Total 1414.75 / 1414.75 747.5 / 747.5 Output Total 3500 / 3500 900 / 900 600 / 600 Balance -2085.25 / -2085.25 -152.5 / -152.5 -600 / -600 Lab / Micro Data Result Diagrams: 10/27/22 07:06 10/27/22 07:06 Labs: Laboratory Results - last 24 hr 10/27/22 07:06: WBC 7.5, RBC 3.44 L, Hgb 10.8 L, Hct 34.3 L, MCV 99.7 H, MCH 31.4, MCHC 31.5 L D, RDW Std Deviation 49.6 H, RDW Coeff of Caty 13.5, Plt Count 133 L, MPV 11.7, Immature Gran % (Auto) 0.700, Neut % (Auto) 73.3 H, Lymph % (Auto) 11.5 L, [place] % (Auto) 12.0 H, Eos % (Auto) 1.7, Baso % (Auto) 0.8, Absolute Neuts (auto) 5.5, Absolute Lymphs (auto) 0.86, Nucleated RBC % 0 10/27/22 07:06: Sodium 143, Potassium 3.1 L, Chloride 109 H, Carbon Dioxide 29.0, Anion Gap 5, BUN 15, Creatinine 0.91, Estim Creat Clear Calc 53.22, Est GFR (MDRD) Af Amer 80, Est GFR (MDRD) Non-Af 66, BUN/Creatinine Ratio 16.5, Glucose 89, Calcium 8.4 L Physical Exam Const alert, oriented x3 and no apparent distress General Appearance: cooperative and well developed HEENT normocephalic and moist oral mucous membranes Eyes PERRL and EOMs intact bilaterally Neck no lymphadenopathy, supple and no JVD Lymph Lymphatic: no lymphadenopathy noted and no lymphedema noted Resp normal respiratory effort, normal air movement and clear to auscultation bilaterally Cardio regular rate, regular rhythm, S1 normal heart sound and S2 normal heart sound GI normal to inspection, nondistended, normoactive bowel sounds, soft to palpation, non-tender and non-distended Extremity Extremity Narrative: RLE wrapped in splint. Skin General Skin Exam: no breakdown and turgor normal Neuro CN's II-XII intact bilaterally, no focal motor deficits and no sensory deficits noted Psych thought process normal Appearance: appropriate Assessment & Plan Assessment/Plan (1) Bimalleolar fracture of right ankle: PLAN: Plan #RLE bilateral malleolar fracture due to mechanical fall * Today's postop day 2 for open reduction and internal fixation of right bimalleolar ankle fracture * Is complaining of spasms in her right foot. Right foot wrapped in a cast. * PT/OT on board * IV morphine and PO oxycodone for pain * podiatry on board. * fall precautions #Multiple sclerosis: * stable. On ocrelizumab. Complains of spasms in her foot. She is concerned that this might interfere with this entity of her surgical site. * On baclofen 30 mg 3 times daily. Says it is helped by Klonopin which she takes at night. * spasms have improved today. Continue baclofen and klonopin * #HYpertension;on amlodipine and atenolol. also on bumex. #History of migraines: on sumatriptan DVT prophylaxis: lovenox Disposition: Will likely need to go to rehab facility. For dc to rehab facility tomorrow Charges/Coding Visit Charges Inpatient E&M: 52281 Subs Hosp L2
--- NOTE | 2022-10-27 14:30 | CASEMGMT ---
Social Work SW spoke with [facility] in [facility] post acute care. A bed has become available in the Rehab Unit and pt can go to Rehab tomorrow instead of TCU. [facility]
[2022-10-27 15:43] VITALS: BP 131/58; PULSE 69; RESP 18; TEMP 36.8; O2SAT 98
--- NOTE | 2022-10-27 15:43 | CASEMGMT ---
Discharge Planning Notified patient that an opening in rehab unit became available for admission tomorrow. Patient was agreeable and pleased. SW notified. Fatimah Julien, Dicharge Planning Asst.
[2022-10-27 21:10] VITALS: BP 125/51; PULSE 69; RESP 16; TEMP 36.7; O2SAT 94
[2022-10-27] MEDS: Atenolol 25 MG Tablet 75 MG PO (21:12)
[2022-10-27] MEDS: Nystatin Powder 15gm Bottle 1 APPLIC TOPICAL (21:12)
[2022-10-28] MEDS: clonazePAM 0.5 MG Tablet PO (01:59)
[2022-10-28 02:09] VITALS: BP 122/62; PULSE 66; RESP 16; TEMP 36.9; O2SAT 96
[2022-10-28 06:19] LABS: Absolute Lymphocyte Count 0.89 X10^3/uL (0.83-4.51); Absolute Neutrophil Count 4.6 X10^3/uL (2.0-7.7); Basophil# 0.06 X10^3/uL; Basophil% 0.9 % (0-1); Eosinophil# 0.16 X10^3/uL; Eosinophils% 2.4 % (0-5); Hematocrit 34.6 % (37-47); Hemoglobin 11.2 g/dL (12.0-15.0); Lymphocyte # 0.89 X10^3/ul (0.83-4.51); Lymphocyte % 13.5 % (19-41); Mean Corp Hgb Conc 32.4 g/dL (32-36); Mean Corpuscular Volume 98.9 fL (81-99); Mean Platelet Vol. 11.3 fl (6.2-12.0); Monocyte% 12.2 % (0-10); NRBC Flagged by Analyzer 0 % (0-5); Neutrophil # 4.62 X10^3/uL (2.7-7.7); Neutrophil % 70.2 % (47-70); Platelet Count 149 K/mm3 (150-450); RBC Distribution Width CV 13.5 % (11.6-14.6); RBC Distribution Width SD 49.1 fl (35.1-43.9); White Blood Count 6.6 K/mm3 (4.4-11.0)
[2022-10-28 06:40] LABS: Anion Gap 6 (5-15); BUN 18 mg/dL (7-18); Calcium,Total 9.1 mg/dL (8.5-10.1); Chloride 107 mmol/L (98-107); EST Glomerular Filtration Rate 67 mL/min (>60); Est Glom Filt Rate - Afr Amer 81 mL/min (>60); Estimated Creatinine Clearance 53.81 ml/min; Glucose 92 mg/dL (74-106); Potassium 3.1 mmol/L (3.5-5.1); Sodium Level 141 mmol/L (136-145)
[2022-10-28] MEDS: Baclofen 10 MG Tablet 30 MG PO (06:41)
[2022-10-28] MEDS: Nystatin Powder 15gm Bottle 1 APPLIC TOPICAL (06:42)
[2022-10-28] MEDS: BACITRACIN 15 GM Tube 1 APPLIC TOPICAL (06:42)
[2022-10-28 07:50] VITALS: O2SAT 95
[2022-10-28 08:10] VITALS: BP 121/56; PULSE 74; RESP 18; TEMP 36.6; O2SAT 97
[2022-10-28] MEDS: Potassium Chloride Oral Tablet 20 MEQ 40 MEQ PO (09:23)
[2022-10-28] MEDS: Potassium Chloride Oral Tablet 20 MEQ PO (09:24)
[2022-10-28] MEDS: Bumetanide 2 MG Tablet PO (09:25)
[2022-10-28] MEDS: Menthol/Lanolin/Calamine/Znox 113 GM Tube 1 APPLIC TOPICAL (09:25)
[2022-10-28] MEDS: Ibuprofen 200 MG Tablet 400 MG PO (09:26)
[2022-10-28] MEDS: Pantoprazole Sodium 40 MG Tablet PO (09:26)
[2022-10-28] MEDS: Enoxaparin 40 MG/0.4 ML Syringe SC (09:26)
[2022-10-28] MEDS: Ergocalciferol 1.25 MG (50, 000 UNIT) Capsule PO (09:27)
[2022-10-28] MEDS: Atenolol 50 MG Tablet PO (09:27)
[2022-10-28] MEDS: Amantadine 100 MG Capsule PO (09:27)
[2022-10-28 09:42] VITALS: PULSE 74
[2022-10-28 10:00] VITALS: O2SAT 90
[2022-10-28 12:29] VITALS: BP 121/56; PULSE 74; RESP 18; TEMP 36.7; O2SAT 97
--- NOTE | 2022-10-28 12:33 | DS.PCM_ITS ---
Providers Date of Admission: 10/25/22 Primary Care Physician: Dr. Walt La, Consultations 10/25/22 01:20 Consult: Podiatry Routine Consulting Provider: Juan Manuel Umaña Reason for Consult: Bimalleolar right ankle fracture EMERGENT Consult: No MD Notified: Yes Date Notified: 10/25/22 Time Notified: 00:37 Method of Notification: ED Physician Initiated Reason For Visit: PARTIALLY DISPLACED BIMALLEOLAR RIGHT ANKLE FRX Diagnosis Discharge Diagnosis (1) Bimalleolar fracture of right ankle: Status: Acute Code(s): S82.841A - Displaced bimalleolar fracture of right lower leg, initial encounter for closed fracture Plan #RLE bilateral malleolar fracture due to mechanical fall * Today's postop day 2 for open reduction and internal fixation of right bimalleolar ankle fracture * Is complaining of spasms in her right foot. Right foot wrapped in a cast. * PT/OT on board * IV morphine and PO oxycodone for pain * podiatry on board. * fall precautions #Multiple sclerosis: * stable. On ocrelizumab. Complains of spasms in her foot. She is concerned that this might interfere with this entity of her surgical site. * On baclofen 30 mg 3 times daily. Says it is helped by Klonopin which she takes at night. * spasms have improved today. Continue baclofen and klonopin * #HYpertension;on amlodipine and atenolol. also on bumex. #History of migraines: on sumatriptan DVT prophylaxis: lovenox Disposition: Will likely need to go to rehab facility. For dc to rehab facility tomorrow Medications at Discharge Home Medications amitriptyline 100 mg tablet 100 mg PO QHS DEPRESSION 08/04/14 atenolol 50 mg tablet 50 mg PO DAILY BLOOD PRESSURE 08/04/14 atenolol 50 mg tablet 75 mg PO QHS BLOOD PRESSURE 08/04/14 baclofen 20 mg tablet 30 mg PO Q8 MS 08/04/14 cholecalciferol (vitamin D3) 1,250 mcg (50,000 unit) capsule 50,000 unit PO TUTH Supplement 08/04/14 cyanocobalamin (vitamin B-12) 1,000 mcg/mL injection solution 100 mcg IM Q30D SUPPLEMENT 08/04/14 ibuprofen 200 mg tablet 400 mg PO DAILY PAIN 08/04/14 tramadol 50 mg tablet 50 mg PO Q4H PRN PRN Pain 09/03/18 amantadine HCl 100 mg capsule 100 mg PO BID SPASMS 09/04/18 bumetanide 2 mg tablet 2 mg PO BID WATER PILL 09/04/18 ocrelizumab 30 mg/mL intravenous solution 300 mg IV Q6M MS 09/04/18 sumatriptan succinate 50 mg tablet (Imitrex) 50 mg PO ONCE PRN migraine headache 03/01/22 clonazepam 0.5 mg tablet (Klonopin) 0.5 mg PO QHS PRN Spasms 10/25/22 fluconazole 200 mg tablet 200 mg PO DAILY PRN INFECTION 10/25/22 pantoprazole 40 mg tablet,delayed release 40 mg PO DAILY STOMACH 10/25/22 potassium chloride 20 mEq tablet,extended release(part/cryst) 20 meq PO DAILY SUPPLEMENT 10/25/22 enoxaparin 40 mg/0.4 mL subcutaneous syringe (Lovenox) 40 mg (0.4 mL) subcut DAILY 2 weeks #5.6 mL 10/28/22 Weight / BMI Weight Weight: 219 lb 4.8 oz Body Mass Index (BMI) 37.6 ABG / Lab / Microbiology Data Result Diagrams: 10/28/22 05:43 10/28/22 05:43 Laboratory: Laboratory Results - last 24 hr 10/28/22 05:43: WBC 6.6, RBC 3.50 L, Hgb 11.2 L, Hct 34.6 L, MCV 98.9, MCH 32.0, MCHC 32.4, RDW Std Deviation 49.1 H, RDW Coeff of Caty 13.5, Plt Count 149 L, MPV 11.3, Immature Gran % (Auto) 0.800, Neut % (Auto) 70.2 H, Lymph % (Auto) 13.5 L, [place] % (Auto) 12.2 H, Eos % (Auto) 2.4, Baso % (Auto) 0.9, Absolute Neuts (auto) 4.6, Absolute Lymphs (auto) 0.89, Nucleated RBC % 0 10/28/22 05:43: Sodium 141, Potassium 3.1 L, Chloride 107, Carbon Dioxide 28.0, Anion Gap 6, BUN 18, Creatinine 0.90, Estim Creat Clear Calc 53.81, Est GFR (MDRD) Af Amer 81, Est GFR (MDRD) Non-Af 67, BUN/Creatinine Ratio 20.0, Glucose 92, Calcium 9.1 D/C Instructions Discharge Diet: Low fat / Low cholesterol Weight Bearing Status: Weight bearing as tolerated Call your doctor if you observe: Fever of 101 or Higher, Shortness of breath, Swelling in the ankles and Chest pain Discharge Plan Admission Admit Date/Time: 10/25/22 00:28 Primary Reason for Your Visit: right bimalleolar fracture due to mechanical fall Attending Provider: Lorna Escalante Primary Care Provider: Walt La Consulting Providers: Jann Wright ; Juan Manuel Umaña Instructions Patient Instructions: Ankle Fracture ORIF Discharge Orders/Prescriptions Prescriptions: New enoxaparin [Lovenox] 40 mg/0.4 mL syringe 40 mg subcut DAILY 14 Days Qty: 5.6 0RF Continued sumatriptan succinate [Imitrex] 50 mg tablet 50 mg PO ONCE PRN (Reason: migraine headache) baclofen 20 MG tablet 30 mg PO Q8 cyanocobalamin (vitamin B-12) 1,000 MCG/ML solution 100 mcg IM Q30D ibuprofen 200 MG tablet 400 mg PO DAILY amitriptyline 100 MG tablet 100 mg PO QHS atenolol 50 MG tablet 75 mg PO QHS atenolol 50 MG tablet 50 mg PO DAILY cholecalciferol (vitamin D3) 50,000 UNIT capsule 50,000 unit PO TUTH tramadol 50 MG tablet 50 mg PO Q4H PRN PRN (Reason: Pain) bumetanide 2 MG tablet 2 mg PO BID ocrelizumab 300 MG/10 ML solution 300 mg IV Q6M Rx Instructions: every 6 months due November 2018. last had Jun 2018 amantadine HCl 100 MG capsule 100 mg PO BID potassium chloride 20 MEQ tablet,ER particles/crystals 20 meq PO DAILY pantoprazole 40 mg tablet,delayed release (DR/EC) 40 mg PO DAILY fluconazole 200 mg tablet 200 mg PO DAILY PRN (Reason: INFECTION) clonazepam [Klonopin] 0.5 mg Tablet 0.5 mg PO QHS PRN (Reason: Spasms) Rx Instructions: administer 30 minutes before bedtime Referrals / Follow Up: Summers,Juan Manuel, DPM [Med Staff - Active Staff] - Within 1 Week Walt La DO [Primary Care Provider] - Within 2 Weeks Disposition Disposition (needs filled in before D/C Order can be placed): Inpatient Rehab Unit/Facility
--- NOTE | 2022-10-28 12:33 | PCM.DC.SUM ---
Providers Date of Admission: 10/25/22 Date of Discharge: 10/28/22 Primary Care Physician: Dr. Walt La, Consultations 10/25/22 01:20 Consult: Podiatry Routine Consulting Provider: Juan Manuel Umaña Reason for Consult: Bimalleolar right ankle fracture EMERGENT Consult: No MD Notified: Yes Date Notified: 10/25/22 Time Notified: 00:37 Method of Notification: ED Physician Initiated Reason For Visit: PARTIALLY DISPLACED BIMALLEOLAR RIGHT ANKLE FRX Diagnosis Discharge Diagnosis (1) Bimalleolar fracture of right ankle: Status: Acute Code(s): S82.841A - Displaced bimalleolar fracture of right lower leg, initial encounter for closed fracture Plan #RLE bilateral malleolar fracture due to mechanical fall Today's postop day 2 for open reduction and internal fixation of right bimalleolar ankle fracture Is complaining of spasms in her right foot. Right foot wrapped in a cast. PT/OT on board IV morphine and PO oxycodone for pain podiatry on board. fall precautions #Multiple sclerosis: stable. On ocrelizumab. Complains of spasms in her foot. She is concerned that this might interfere with this entity of her surgical site. On baclofen 30 mg 3 times daily. Says it is helped by Klonopin which she takes at night. spasms have improved today. Continue baclofen and klonopin #HYpertension;on amlodipine and atenolol. also on bumex. #History of migraines: on sumatriptan DVT prophylaxis: lovenox Disposition: Will likely need to go to rehab facility. For dc to rehab facility tomorrow Medications at Discharge Home Medications amitriptyline 100 mg tablet 100 mg PO QHS DEPRESSION 08/04/14 atenolol 50 mg tablet 50 mg PO DAILY BLOOD PRESSURE 08/04/14 atenolol 50 mg tablet 75 mg PO QHS BLOOD PRESSURE 08/04/14 baclofen 20 mg tablet 30 mg PO Q8 MS 08/04/14 cholecalciferol (vitamin D3) 1,250 mcg (50,000 unit) capsule 50,000 unit PO TUTH Supplement 08/04/14 cyanocobalamin (vitamin B-12) 1,000 mcg/mL injection solution 100 mcg IM Q30D SUPPLEMENT 08/04/14 ibuprofen 200 mg tablet 400 mg PO DAILY PAIN 08/04/14 tramadol 50 mg tablet 50 mg PO Q6H PRN PRN Pain 1-10 09/03/18 amantadine HCl 100 mg capsule 100 mg PO BID SPASMS 09/04/18 bumetanide 2 mg tablet 2 mg PO BID WATER PILL 09/04/18 sumatriptan succinate 50 mg tablet (Imitrex) 50 mg PO ONCE PRN migraine headache 03/01/22 clonazepam 0.5 mg tablet (Klonopin) 0.5 mg PO QHS PRN Spasms 10/25/22 pantoprazole 40 mg tablet,delayed release 40 mg PO DAILY STOMACH 10/25/22 potassium chloride 20 mEq tablet,extended release(part/cryst) 20 meq PO DAILY SUPPLEMENT 10/25/22 enoxaparin 40 mg/0.4 mL subcutaneous syringe (Lovenox) 40 mg subcut DAILY@0600 Check with primary doctor 10/28/22 Hospital Course Operations - (ORIF of right ankle fracture) Procedures None Summary of Care Provided Minutes Spent on Discharge: 45 Hospital Course: Patient is a 66-year-old female with a past medical history as outlined including multiple sclerosis. She was admitted through the ED on 10/25/2022 with a complaint of multiple falls whilst gardening. On the third fall she landed on her ankle and had some snapping and popping of her right ankle. Subsequently developed excruciating pain in her right ankle so came into the ED. Imaging done showed a bimalleolar ankle fracture. She was admitted and managed for right bimalleolar ankle fracture due to mechanical fall. Podiatry was consulted. She had open reduction and internal fixation done on 10/26/2022. Postop course was complicated by some spasms in the affected right leg which subsequently improved. She felt much better. She was discharged to the acute rehab unit on 10/28/2022. She is follow-up with her primary care doctor with podiatry on outpatient basis. She is to be on Lovenox 40 mg daily subcu for DVT prophylaxis. Patient seen and examined prior to discharge. She had no complaints and had an uneventful night. Review of systems otherwise negative. Labs and vitals reviewed. Home medication reviewed and reconciled. Physical Exam Const alert, oriented x3 and no apparent distress General Appearance: cooperative, comfortable, well kempt and well developed HEENT normocephalic, head/scalp atraumatic, hearing grossly normal bilaterally and moist oral mucous membranes Mouth: oral and palatal mucosa normal Eyes PERRL and EOMs intact bilaterally Neck no lymphadenopathy, supple and no JVD Lymph Lymphatic: no lymphadenopathy noted and no lymphedema noted Resp normal respiratory effort, normal air movement and clear to auscultation bilaterally Cardio regular rate, regular rhythm, S1 normal heart sound, S2 normal heart sound and no murmurs GI normal to inspection, nondistended, normoactive bowel sounds, soft to palpation, non-tender and non-distended Extremity Extremity Narrative: RLE wrapped in splint. Skin no rashes or lesions noted General Skin Exam: no breakdown and turgor normal Neuro oriented x3, CN's II-XII intact bilaterally, moves all extremities, no focal motor deficits and no sensory deficits noted Sensorium / Orientation: awake and alert Psych thought process normal Appearance: appropriate Weight / BMI Weight Weight: 219 lb 4.8 oz Body Mass Index (BMI) 37.6 ABG / Lab / Microbiology Data Result Diagrams: 10/28/22 05:43 10/28/22 05:43 Laboratory: Laboratory Results - last 24 hr 10/28/22 05:43: WBC 6.6, RBC 3.50 L, Hgb 11.2 L, Hct 34.6 L, MCV 98.9, MCH 32.0, MCHC 32.4, RDW Std Deviation 49.1 H, RDW Coeff of Caty 13.5, Plt Count 149 L, MPV 11.3, Immature Gran % (Auto) 0.800, Neut % (Auto) 70.2 H, Lymph % (Auto) 13.5 L, [place] % (Auto) 12.2 H, Eos % (Auto) 2.4, Baso % (Auto) 0.9, Absolute Neuts (auto) 4.6, Absolute Lymphs (auto) 0.89, Nucleated RBC % 0 10/28/22 05:43: Sodium 141, Potassium 3.1 L, Chloride 107, Carbon Dioxide 28.0, Anion Gap 6, BUN 18, Creatinine 0.90, Estim Creat Clear Calc 53.81, Est GFR (MDRD) Af Amer 81, Est GFR (MDRD) Non-Af 67, BUN/Creatinine Ratio 20.0, Glucose 92, Calcium 9.1 D/C Instructions Discharge Diet: Low fat / Low cholesterol Discharge Activity: Return to Normal Activity Weight Bearing Status: Weight bearing as tolerated Call your doctor if you observe: Fever of 101 or Higher, Shortness of breath, Swelling in the ankles and Chest pain Meaningful Use Info Meaningful Use Diagnoses (Choose all that apply): None applicable Discharge Plan Admission Admit Date/Time: 10/25/22 00:28 Primary Reason for Your Visit: right bimalleolar fracture due to mechanical fall Attending Provider: Lorna Escalante Primary Care Provider: Walt La Consulting Providers: Jann Wright ; Juan Manuel Umaña Instructions Patient Instructions: Ankle Fracture ORIF Discharge Orders/Prescriptions Prescriptions: Continued sumatriptan succinate [Imitrex] 50 mg tablet 50 mg PO ONCE PRN (Reason: migraine headache) baclofen 20 MG tablet 30 mg PO Q8 cyanocobalamin (vitamin B-12) 1,000 MCG/ML solution 100 mcg IM Q30D ibuprofen 200 MG tablet 400 mg PO DAILY amitriptyline 100 MG tablet 100 mg PO QHS atenolol 50 MG tablet 75 mg PO QHS atenolol 50 MG tablet 50 mg PO DAILY cholecalciferol (vitamin D3) 50,000 UNIT capsule 50,000 unit PO TUTH tramadol 50 MG tablet 50 mg PO Q6H PRN PRN (Reason: Pain 1-10) bumetanide 2 MG tablet 2 mg PO BID amantadine HCl 100 MG capsule 100 mg PO BID potassium chloride 20 MEQ tablet,ER particles/crystals 20 meq PO DAILY pantoprazole 40 mg tablet,delayed release (DR/EC) 40 mg PO DAILY clonazepam [Klonopin] 0.5 mg Tablet 0.5 mg PO QHS PRN (Reason: Spasms) enoxaparin [Lovenox] 40 mg/0.4 mL syringe 40 mg subcut DAILY@0600 Referrals / Follow Up: Juan Manuel Umaña DPM [Med Staff - Active Staff] - Within 1 Week Walt La DO [Primary Care Provider] - Within 2 Weeks Disposition Disposition (needs filled in before D/C Order can be placed): Inpatient Rehab Unit/Facility Charges/Coding Visit Charges Inpatient E&M: 79431 Disch Hosp >30min
--- NOTE | 2022-10-28 13:41 | CASEMGMT ---
Social Work Per physician, pt is ready for discharge to [facility] Inpatient Rehab today. Pt notified and agreeable to d/c to today. RN updated and will facilitate transfer. Disposition: [facility] Inpatient Rehab Unit ROSIE Mitchell
== END 2022-10-28 14:30 | DRG 494 ==
LOC: ED 10-25 00:43 → MS3 10-25 01:04
PROVIDERS: Podiatrist; Admitting Provider Hospitalist; Emergency Provider Emergency Medicine; PCP Family Medicine; Visit Provider Student in an Organized Health Care Education/Training Program
PROC: 0QSG04Z Reposition Right Tibia with Internal Fixation Device, Open Approach (ICD-10-PCS; principal; 2022-10-25 12:10)
DX: S82.841A Displaced bimalleolar fracture of right lower leg, initial encounter for closed fracture (principal); F41.9 Anxiety disorder, unspecified; G35 Multiple sclerosis; I10 Essential (primary) hypertension; W18.39XA Other fall on same level, initial encounter; M62.838 Other muscle spasm; S93.431A Sprain of tibiofibular ligament of right ankle, initial encounter; R29.6 Repeated falls; Z79.899 Other long term (current) drug therapy; Z86.16 Personal history of COVID-19; Z87.891 Personal history of nicotine dependence
CPT/HCPCS: 29515; 36415; 73600; 73610; 76000; 80048; 82306; 85025; 93005; 94668; 97110; 97162; 97166; 97530; 97535; 99252; 99284; C1713; J7120; G0463; J2405

== ENCOUNTER 2022-10-28 14:59 | Inpatient (IN) | payer MEDICARE, OTHER, SELFPAY ==
[2022-10-28 15:16] VITALS: BMI 37.6
[2022-10-28 17:17] VITALS: BP 124/51; PULSE 62; RESP 18; TEMP 36.1; O2SAT 98
[2022-10-28] MEDS: Bumetanide 2 MG Tablet PO (17:52)
[2022-10-28 19:42] VITALS: BP 120/52; PULSE 63; RESP 18; TEMP 36.2; O2SAT 98
[2022-10-28] MEDS: Atenolol 50 MG Tablet 75 MG PO (21:32)
[2022-10-28] MEDS: Amantadine 100 MG Capsule PO (21:32)
[2022-10-28] MEDS: Baclofen 10 MG Tablet 30 MG PO (21:33)
[2022-10-28] MEDS: Senna/Docusate Sodium 1 Tablet 2 TABLET PO (21:33)
[2022-10-28] MEDS: Amitriptyline 100 MG Tablet PO (21:34)
[2022-10-28] MEDS: BACITRACIN 15 GM Tube 1 APPLIC TOPICAL (21:36)
[2022-10-28] MEDS: Nystatin Powder 15gm Bottle 1 APPLIC TOPICAL (21:58)
[2022-10-28 22:00] VITALS: PULSE 63; RESP 16; O2SAT 95
[2022-10-28] MEDS: clonazePAM 0.5 MG Tablet PO (22:33)
[2022-10-29 06:00] VITALS: BMI 37.6
[2022-10-29] MEDS: Baclofen 10 MG Tablet 30 MG PO ×3 (06:11→20:26)
[2022-10-29] MEDS: Enoxaparin 40 MG/0.4 ML Syringe SC (06:12)
[2022-10-29] MEDS: Nystatin Powder 15gm Bottle 1 APPLIC TOPICAL ×2 (06:12→20:26)
[2022-10-29] MEDS: BACITRACIN 15 GM Tube 1 APPLIC TOPICAL ×2 (06:12→20:24)
[2022-10-29 07:37] VITALS: BP 111/44; PULSE 98; RESP 15; TEMP 36.6; O2SAT 97
[2022-10-29] MEDS: Ibuprofen 200 MG Tablet 400 MG PO (08:52)
[2022-10-29] MEDS: Atenolol 50 MG Tablet PO (08:52)
[2022-10-29] MEDS: Pantoprazole Sodium 40 MG Tablet PO (08:52)
[2022-10-29] MEDS: Senna/Docusate Sodium 1 Tablet 2 TABLET PO ×2 (08:52→20:25)
[2022-10-29] MEDS: Bumetanide 2 MG Tablet PO ×2 (08:52→17:14)
[2022-10-29] MEDS: Amantadine 100 MG Capsule PO ×2 (08:52→20:29)
[2022-10-29] MEDS: Potassium Chloride Oral Tablet 20 MEQ PO (08:53)
[2022-10-29] MEDS: Menthol/Lanolin/Calamine/Znox 113 GM Tube 1 APPLIC TOPICAL ×2 (08:58→20:27)
--- NOTE | 2022-10-29 15:09 | HP.PCM_ITS ---
HPI - General General Date of Admission: 10/28/22 Date of Service: 10/29/22 Chief Complaint: Debility due to bimalleolar fracture of the R ankle in a pt with MS. HPI Narrative MEGGAN KITCHEN, is a 66 YO F with a PMH of MS, obesity, HTN, tobacco dependence in remission, GERD, migraines, osteopenia, mild left atrial enlargement, mild MR, internal hemorrhoids and peripheral neuropathy who presented to the ED at [facility] early on 10/25/22 stating she had 3 falls that day and she was not able to ambulate/bear wt after the last fall. XRAY showed partially displaced bimalleolar right ankle fracture with mild ankle joint space widen ing/instability. She was admitted to the hospitalist service and podiatry was consulted. She was taken to surgery on 10/25/22 for open reduction internal fixation by Dr. Umaña. Post operatively she was seen by PT/OT and they recommended acute inpt rehab at [place]. she was transferred to the acute inpt rehab unit at [facility] on 10/28/22 for 3 hours of therapy daily to restore function at or near her level prior to the fracture. [facility] Medical History (Updated 10/29/22 @ 17:[address] Sosa Alcala, ) Anxiety COVID-19 Difficulty swallowing Exacerbation of multiple sclerosis Former smoker Gastric reflux History of gastric polyp History of GI bleed History of stress test Hypertension Migraine headache Multiple sclerosis Osteopenia Peripheral neuropathy Shortness of breath on exertion Home Medications amitriptyline 100 mg tablet 100 mg PO QHS DEPRESSION 08/04/14 [History Last Tho en 09/03/18] atenolol 50 mg tablet 50 mg PO DAILY BLOOD PRESSURE 08/04/14 [History Last Taken 03/24/22] atenolol 50 mg tablet 75 mg PO QHS BLOOD PRESSURE 08/04/14 [History Last Taken 09/03/18] baclofen 20 mg tablet 30 mg PO Q8 MS 08/04/14 [History Last Taken 09/03/18] cholecalciferol (vitamin D3) 1,250 mcg (50,000 unit) capsule 50,000 unit PO [facility] Supp[facility] 08/04/14 [History Last Taken 10/28/22 09:00] cyanocobalamin (vitamin B-12) 1,000 mcg/mL injection solution 100 mcg IM Q30D SUPPLEMENT 08/04/14 [History Last Taken 10/18/22 10:00] ibuprofen 200 mg tablet 400 mg PO DAILY PAIN 08/04/14 [History Last Taken 10/28/22 09:30] tramadol 50 mg tablet 50 mg PO Q6H PRN PRN Pain 1-10 09/03/18 [History Last Taken Unknown] amantadine HCl 100 mg capsule 100 mg PO BID SPASMS 09/04/18 [History Last Taken Unknown] bumetanide 2 mg tablet 2 mg PO BID WATER PILL 09/04/18 [History Last Taken Unknown] sumatriptan succinate 50 mg tablet (Imitrex) 50 mg PO ONCE PRN migraine headache 03/01/22 [History Last Taken Unknown] clonazepam 0.5 mg tablet (Klonopin) 0.5 mg PO QHS PRN Spasms 10/25/22 [History Last Taken Unknown] pantoprazole 40 mg tablet,delayed release 40 mg PO DAILY STOMACH 10/25/22 [History Last Taken Unknown] potassium chloride 20 mEq tablet,extended release(part/cryst) 20 meq PO DAILY SUPPLEMENT 10/25/22 [History Last Taken Unknown] enoxaparin 40 mg/0.4 mL subcutaneous syringe (Lovenox) 40 mg subcut DAILY@0600 Check with primary doctor 10/28/22 [History Last Taken Unknown] Allergy/AdvReac Type Severity Reaction Status Date / Time adhesive AdvReac RED Verified 10/24/22 22:15 amlodipine besylate AdvReac Nausea Verified 10/24/22 22:15 [From Lotrel] benazepril HCl [From Lotrel] AdvReac Nausea Verified 10/24/22 22:15 codeine AdvReac Nausea Verified 10/24/22 22:15 latex AdvReac RED Verified 10/24/22 22:15 Penicillins AdvReac Nausea Verified 10/24/22 22:15 Family History (Updated 10/29/22 @ 16:[address] Sosa Alcala DO) Brother Diabetes Heart disease Kidney disease Cancer Mother Diabetes Hypertension Thyroid disorder VTE (venous thromboembolism) Son VTE (venous thromboembolism) Surgical History (Updated 10/29/22 @ 17:[address] Sosa Alcala DO) History of cataract surgery History of colonoscopy History of hysterectomy History of skin surgery History of surgical procedure on mouth Social History (Updated 10/29/22 @ 16:[address] Sosa Alcala, DO) household members: spouse housing: house pets and animals: Yes Smoking Status: Former smoker pack-years: 35 Tobacco: How many years used: 35 how long ago did patient quit smoking: quit smoking in 2008 and started as a teenager. alcohol intake: never substance use type: does not use additional social history: uses ibuprofen daily ROS Constitutional Constitutional: Reports fatigue and weakness; Denies anorexia, change in weight, chills, fever(s) or night sweats Eyes Eyes: Denies blurry vision, change in vision, eye pain or loss of vision ENT HEENT: Reports dysphagia and headache(s); Denies abnormal hearing, hearing loss, nasal congestion or sore throat Cardiovascular Cardiovascular: Denies chest pain, dyspnea on exertion, edema, lightheadedness, orthopnea, palpitations, paroxysmal nocturnal dyspnea or syncope Respiratory/Chest Respiratory/Chest: Denies cough, dyspnea, shortness of breath at rest, shortness of breath with exertion or wheezing Gastrointestinal Gastrointestinal: Denies abdominal pain, constipation, diarrhea, dyspepsia, hematemesis, hematochezia, nausea or vomiting Genitourinary Genitourinary: Reports urinary urgency; Denies dysuria or urinary hesitancy Musculoskeletal Musculoskeletal: Denies back pain, joint pain, joint swelling or neck pain Neurologic Neurologic: Reports focal weakness, paresthesias and sensory deficit; Denies confusion, disequilibrium, dizziness, headache(s), seizures or tremor(s) Psychiatric Psychiatric: Denies anxiety, depression, homicidal ideation or suicidal ideation Endocrine Endocrinology: Denies change in body appearance, polydipsia or polyuria Hematologic/Lymphatic Hematologic/Lymphatic: Denies easy bleeding, easy bruising or lymphadenopathy Allergic/Immunologic Allergic/Immunologic: Denies rhinitis, eczemia or asthma Vital Signs Vital Signs Vital Signs: 10/28/22 17:17 10/28/22 19:42 10/28/22 22:00 Temperature 97 F L 97.1 F L Temperature Source Temporal Temporal Pulse Rate 62 63 63 Respiratory Rate 18 18 16 Respiratory Effort Normal Non-Labored Respiratory Depth Normal Respiratory Pattern Normal Blood Pressure 124/51 H 120/52 L Blood Pressure Mean 75 74 Blood Pressure Source Monitor Monitor Blood Pressure Position Sitting Sitting Blood Pressure Location Right Arm Right Arm Pulse Ox 98 98 95 Oxygen Delivery Method Room Air Room Air Room Air 10/29/22 07:37 10/28/22 16:20 10/29/22 13:26 Temperature 97.9 F Temperature Source Temporal Pulse Rate 98 Respiratory Rate 15 Respiratory Effort Respiratory Depth Respiratory Pattern Blood Pressure 111/44 L Blood Pressure Mean 66 Blood Pressure Source Monitor Blood Pressure Position Semi-Fowlers Blood Pressure Location Right Arm Pulse Ox 97 Oxygen Delivery Method Room Air Room Air Room Air Weight Weight: 219 lb 2.232 oz Body Mass Index (BMI) 37.6 Physical Exam Const alert, oriented x3 and no apparent distress General Appearance: cooperative, well kempt and well developed HEENT normocephalic, head/scalp atraumatic and hearing grossly normal bilaterally HEENT Narrative: thrush present, dry mucous membranes Eyes PERRL, EOMs intact bilaterally, conjunctivae normal and no scleral icterus Neck supple, No nodes and no carotid bruits General: trachea midline Resp normal respiratory effort, normal air movement and clear to auscultation bilaterally Resp Narrative: Not tachypneic. Effort and Inspection: able to speak in complete sentences Cardio regular rate, regular rhythm, S2 normal heart sound, no murmurs, no rub and no gallops Cardio Narrative: No ectopy Jugular Venous Distention: Negative for JVD GI normal to inspection, nondistended, normoactive bowel sounds, soft to palpation, non-tender and no masses GI Narrative: she has severe intertrigo beneath the pannus and in the folds of the groin BL Extremity no calf tenderness Extremity Narrative: DP pulses are 3+ BL. Both feet are warm to the touch. There is a large callous on the Left medial foot which is painful. There seems to be a bony prominence under the callous. No erythema, no openings in the skin. General Extremity: edema Skin Skin Narrative: She has several ulcerated lesions on the upper R lateral thigh. No odor. One of the lesions is 50% slough. They have red/purple rings around them. Some of the borders are raised. she has a scab on the anterior Left distal leg that looked the same way and is now healed. There is also a scaley reddened area on the L buttock that was opened but is now closed. She has been using steroid cream to treat them RLE is in a cast to the knee. Neuro oriented x3 and CN's II-XII intact bilaterally Neuro Narrative: Decreased sensation in both distal LE's. the left leg is very weak and she is unable to lift it off the bed. she has some plantar flexion but, very minimal dorsi flexion. The RLE is in a cast from the toes to the knee. She has good strength in the arms. No facial asymmetry. No visual loss. Can not flex the Left knee. She is able to move abduct and adduct the left leg on the bed. Psych mental status grossly normal, thought process normal, cooperative, affect normal, denies homicidal ideation and denies suicidal ideation Appearance: grossly normal, appropriate and well kempt Attitude: calm Assessment & Plan Assessment/Plan (1) Debility: (2) Bimalleolar fracture of right ankle: (3) History of open reduction and internal fixation (ORIF) procedure: PLAN: 10/25/[address] Umaña (4) Hypokalemia: (5) Acute blood loss anemia: (6) Multiple sclerosis: (7) Peripheral neuropathy: (8) Ulcerative pyoderma gangrenosum: (9) Constipation: (10) Acid reflux: (11) HTN (hypertension): (12) Migraine headache: (13) Charcot's joint of left foot: (14) Foot drop, left: (15) Osteopenia: PLAN: Plan PLAN PT for gait stability OT for ADL's ST for evaluation for swallowing Analgesics as needed Bowel protocol Fall precautions Assess for Anxiety/Depression GI prophylaxis with pantoprazole DVT prophylaxis with enoxaparin Follow up with neurology, Dr. Umaña and either dermatology or rheumatology following DC from Rehab AM lab including CMP, CBC, Mag, ESR, CRP, Phos, HGBA1C, hypercoagulability panel - mother of a PE and her some has had DVT and she has suspected PG Culture the wound for bacteria, fungus and AFB She has had a hepatitis panel that was negative in the last 2 years. ARIC, dsDNA, RF CCP all negative. IgM is persistently low. Consider doing a SPE and immunoelectrophoresis. I suspect the ulcerated lesions on her legs are pyoderma gangrenosum. This is a diagnosis of exclusion usually. If the wound culture is negative will likely proceed with and elliptical bx of the wound and the rim. They do not appear to be infected. She has osteopenia and her wt bearing is limited by the MS. Her last BMD was in 2019. She should be having them every 2 years. Has been on a bisphosphonate in the past but tells me it made her sick and it was discontinued. She does take a vitamin D supplement. She has had fractures of the Left foot in the past and she has neuropathy and a very large callous on the medial side of the foot in the arch. It feels as though there is a eveline prominence under the callous and it is painful to put any weight on it. she may have a charcot foot. Will order a plain XRAY to start. With the osteopenia and her hx of not healing wounds )likely related to Ocrevus, She may benefit from a bone stimulator......will discuss with Dr. Umaña. I suspect that she is going to be WC bound, at least until the fracture is healed. Her Left leg is very weak and will not support her and she is NWB on the RLE. Will need to work on WC mobility and upper body strength. Hopefully we can get some strength back in the LLE or she may be WC bound for a long time. She received Ocrevus last week. Charges/Coding Visit Charges Inpatient E&M: 46154 Init Hosp L3
[2022-10-29] MEDS: Juven (unflavored) Packet 1 PACKET PO (17:15)
--- NOTE | 2022-10-29 18:09 | PCM.RU.PYE ---
Admission Information Primary Diagnosis:: Debility secondary to bimalleolar fracture of the right ankle with open reduction internal fixation on 10/25/2022. In addition she has multiple sclerosis with a dropfoot on the left and severely weakened left leg. Status Changes from Prescreening?: No changes Identified Actual Problem List:: Falls, Skin Intergrity, Bowel, Constipation, Alteration in Sleep, Mobility Impaired, Self Care Deficit, Know.Dfct of Medicaitons and Alteration-Leisure Activ. Potential Problem List:: DVT, Bleeding, Infection, UTI, Aspiration, Falls, Skin Integrity and Depression Risk of Complications DVT: LMWH and JARAD Hose Bleeding: Monitor Lab Values, Nursing to Teach Precautions for anti-coagulation therapy., Wound, if applicable, to be assessed every shift. and Stroke patients assessed for lethargy or change in status. Infection: Clinical Staff to Monitor for S/S of infection: and S/S of infection include fever, redness, warmth, etc. Urinary Tract Infection: Monitor for frequency, burning, discomfort, or incontinence. and Nursing will obtain urine sample for urinalysis and C&S when ordered. Aspiration: Clinical staff will monitor for coughing, drooling, congestion., Speech will evaluate swallowing and dsyphasia. and Nursing will monitor patient swallowing during meals. Falls: Patient will be evaluated for Fall Precautions and Patient will be placed on Fall Precautions as indicated per protocol. Skin Breakdown: Nursing will assess skin daily using assessment tool. and Nursing will place on Skin Breakdown Precautions as indicated. Pain: Clinical staff will assess patient's pain level per protocol., Medications will be given, if needed, and the pain level reassessed. and Other methods: Massage, distraction, decrease stimulus, etc. used PRN. Plan of Care Patient requires physician specializing in physical medicine and rehab oversight to provide close medical supervision of rehab issues including: Pain Management, Sleep Problems, Bowel and Bladder, Medical and co-morbidity Management, DVT prophylaxis, Rehabilitation Leadership and Coordination of treatment team Patient needs Physical Therapy: For a minimum of 1 hour and At least 5 out of 7 days Patient needs Physical Therapy to improve:: Mobility, Strengthening, Transfers, Stretching, ROM, Endurance, Stairs, Gait and Balance Patient needs Occupational Therapy: For a minimum of 1 hour and At least 5 out of 7 days Patient needs Occupational Therapy to improve ADL's incl.: Eating, Grooming, Bathing, Dressing, Toileting, Toilet transfers, Community Reintegration, Higher functioning activities, Household tasks, Adaptive Equipment, Splinting and Other activities as determined Patient requires speech therapy: For a minimum of 1 hour and At least 5 out of 7 days Patient requires speech therapy for: Swallowing, Cognition, Language Skills and Compensatory Strategies Patient requires 24/ Rehabilitation Nursing for: Pain Issues, Identifying and preventing risk factors, Monitoring and reporting current medical conditions, Assisting with ambulation, transfer, and all ADL's, Teaching patients about disease process and medications, Family teaching, Providing safe environment, Bowel and Bladder Issues, Skin integrity and Medication Management Patient needs Mine Car Mechanic/ Case Management for: Discharge Planning, Arranging Home Equipment or Services and Family Interventions Patient needs Dietary and Nutrition Services for: Adequate Nutrition, Nutritional Supplements and Nutritional Education Goals Patient will remain: free from falls and or injury at time of discharge. Patient will perform bed mobility at: MOD I level of assist. Patient will complete transfers from bed to chair at: Standby Assist. Patient will ambulate: - (Not a goal for this patient during this admission. ) Patient will propel wheelchair: - (250 feet at standby assist on various surfaces) Patient will complete upper body dressing at: MOD I level of assist. Patient will complete lower body dressing at: MOD I level of assist. (with adaptive equipment. ) Patient will complete toileting at: - (Will complete toilet transfer and toileting tasks at min assist.) Patient will perform bathing at: - (min-mod assist) Patient will complete grooming at: MOD I level of assist. Patient will achieve: - (not a goal at this time) Patient will have pain level of: of 3 or less Patient's skin will: remain intact and free from infection. Patient will receive: adequate nutrition. Discharge Planning Pt Prognosis for Sig. Practical Improv. w/in Reasonable Time: Good Estimated Length of stay (days): 21 Anticipated D/C Destination: Home with Home Health ([facility] at least initially) Was Preadmission Assessment Accurate?: Yes
[2022-10-29] MEDS: Potassium Chloride Oral Tablet 20 MEQ 40 MEQ PO (18:13)
--- NOTE | 2022-10-29 18:19 | RAD_ITS ---
INDICATION: pain with bony prominence suspect possible charcot EXAMINATION/TECHNIQUE: X-RAY - LEFT XR Foot 2 Views 2 VIEWS COMPARISON: FINDINGS: SOFT TISSUES: No soft tissue swelling or gas. No radiopaque foreign body. BONES/JOINTS: Diffuse osteopenia. Moderate osteoarthritis medial cuneiform at its articulation with the base of the first metatarsal. Mild osteoarthritis throughout the remainder of the tarsal bones. Mild plantar calcaneal spurring. RAD/Foot 2 Views IMPRESSION: Osteopenia. Degenerative changes above. Electronically Signed: Walt Leyva MD, MADIHA at 9:22 EDT ,
[2022-10-29 19:08] VITALS: BP 133/67; PULSE 66; RESP 18; TEMP 36; O2SAT 99
[2022-10-29] MEDS: Amitriptyline 100 MG Tablet PO (20:27)
[2022-10-29] MEDS: Atenolol 50 MG Tablet 75 MG PO (20:29)
[2022-10-29 22:00] VITALS: PULSE 66; RESP 16; O2SAT 98
[2022-10-30] MEDS: Baclofen 10 MG Tablet 30 MG PO ×3 (05:20→20:58)
[2022-10-30] MEDS: BACITRACIN 15 GM Tube 1 APPLIC TOPICAL ×2 (05:20→20:54)
[2022-10-30] MEDS: Nystatin Powder 15gm Bottle 1 APPLIC TOPICAL ×2 (05:20→20:57)
[2022-10-30] MEDS: Enoxaparin 40 MG/0.4 ML Syringe SC (05:20)
[2022-10-30 05:37] LABS: Absolute Lymphocyte Count 0.87 X10^3/uL (0.83-4.51); Absolute Neutrophil Count 5.8 X10^3/uL (2.0-7.7); Basophil# 0.06 X10^3/uL; Basophil% 0.8 % (0-1); Eosinophil# 0.17 X10^3/uL; Eosinophils% 2.2 % (0-5); Hematocrit 36.6 % (37-47); Hemoglobin 11.9 g/dL (12.0-15.0); Lymphocyte # 0.87 X10^3/ul (0.83-4.51); Lymphocyte % 11.1 % (19-41); Mean Corp Hgb Conc 32.5 g/dL (32-36); Mean Corpuscular Hgb 31.8 pg (27.0-32.0); Mean Corpuscular Volume 97.9 fL (81-99); Mean Platelet Vol. 10.9 fl (6.2-12.0); Monocyte# 0.92 X10^3/uL; Monocyte% 11.7 % (0-10); NRBC Flagged by Analyzer 0 % (0-5); Neutrophil # 5.76 X10^3/uL (2.7-7.7); Neutrophil % 73.3 % (47-70); Platelet Count 202 K/mm3 (150-450); RBC Distribution Width CV 13.2 % (11.6-14.6); RBC Distribution Width SD 47.9 fl (35.1-43.9); Red Blood Count 3.74 M/mm3 (4.2-5.4); White Blood Count 7.9 K/mm3 (4.4-11.0)
[2022-10-30 05:45] LABS: Erythrocyte Sedimentation Rate 43 mm/hr (0-30)
[2022-10-30 05:59] LABS: ALB/GLOB Ratio 0.8 RATIO (0.9-2.4); AST(SGOT) 13 U/L (15-37); Alanine Aminotransfer ALT/SGPT 20 U/L (13-56); Albumin, Serum 3.2 g/dL (3.2-5.0); Alkaline Phosphatase 130 U/L (45-117); Anion Gap 9 (5-15); BUN 23 mg/dL (7-18); BUN/Creat Ratio 22.1 RATIO (10-20); Calcium,Total 9.2 mg/dL (8.5-10.1); Chloride 105 mmol/L (98-107); Creatinine, Serum 1.04 mg/dL (0.55-1.02); EST Glomerular Filtration Rate 56 mL/min (>60); Est Glom Filt Rate - Afr Amer 68 mL/min (>60); Estimated Creatinine Clearance 46.57 ml/min; Globulin 3.9 g/dL (2.2-4.2); Glucose 100 mg/dL (74-106); Magnesium 2.1 mg/dL (1.6-2.6); Phosphorus 3.6 mg/dL (2.5-4.9); Potassium 3.6 mmol/L (3.5-5.1); Protein, Total 7.1 g/dL (6.4-8.2); Sodium Level 141 mmol/L (136-145)
[2022-10-30 07:08] VITALS: O2SAT 94
[2022-10-30 07:17] VITALS: BP 100/40; PULSE 67; RESP 16; TEMP 36.7; O2SAT 94
[2022-10-30 08:20] LABS: Hemoglobin A1c 5.4 % (3.8-5.6)
[2022-10-30] MEDS: Juven (unflavored) Packet 1 PACKET PO ×2 (08:40→17:07)
[2022-10-30] MEDS: Senna/Docusate Sodium 1 Tablet 2 TABLET PO ×2 (08:41→20:59)
[2022-10-30] MEDS: Bumetanide 2 MG Tablet PO ×2 (08:41→17:07)
[2022-10-30] MEDS: Potassium Chloride Oral Tablet 20 MEQ PO ×2 (08:41→17:07)
[2022-10-30] MEDS: Fluconazole 100 MG Tablet PO (08:41)
[2022-10-30] MEDS: Ibuprofen 200 MG Tablet 400 MG PO (08:41)
[2022-10-30] MEDS: Atenolol 50 MG Tablet PO (08:41)
[2022-10-30] MEDS: Amitriptyline 100 MG Tablet PO ×2 (08:42→21:03)
[2022-10-30] MEDS: Menthol/Lanolin/Calamine/Znox 113 GM Tube 1 APPLIC TOPICAL ×2 (08:42→20:57)
[2022-10-30] MEDS: Pantoprazole Sodium 40 MG Tablet PO (08:42)
[2022-10-30 08:53] VITALS: BP 138/59; PULSE 68
[2022-10-30] MEDS: Amantadine 100 MG Capsule PO ×2 (08:56→20:58)
[2022-10-30] MEDS: 0.9% Saline Lock 10 ML Syringe IV (17:07)
[2022-10-30 20:23] VITALS: BP 121/49; PULSE 60; RESP 17; TEMP 36.1; O2SAT 100
[2022-10-30] MEDS: Atenolol 50 MG Tablet 75 MG PO (20:59)
[2022-10-30] MEDS: clonazePAM 0.5 MG Tablet PO (23:16)
[2022-10-31] MEDS: Baclofen 10 MG Tablet 30 MG PO ×3 (05:35→22:10)
[2022-10-31] MEDS: Enoxaparin 40 MG/0.4 ML Syringe SC (05:35)
[2022-10-31] MEDS: Nystatin Powder 15gm Bottle 1 APPLIC TOPICAL ×2 (05:36→22:26)
[2022-10-31] MEDS: BACITRACIN 15 GM Tube 1 APPLIC TOPICAL (05:37)
[2022-10-31 07:37] VITALS: BP 114/55; PULSE 66; RESP 17; TEMP 35.8; O2SAT 95
[2022-10-31] MEDS: Juven (unflavored) Packet 1 PACKET PO ×2 (08:39→17:12)
[2022-10-31] MEDS: Senna/Docusate Sodium 1 Tablet 2 TABLET PO (08:39)
[2022-10-31] MEDS: Bumetanide 2 MG Tablet PO ×2 (08:40→17:16)
[2022-10-31] MEDS: Ibuprofen 200 MG Tablet 400 MG PO (08:40)
[2022-10-31] MEDS: Amantadine 100 MG Capsule PO ×2 (08:40→22:10)
[2022-10-31] MEDS: Pantoprazole Sodium 40 MG Tablet PO (08:40)
[2022-10-31] MEDS: Atenolol 50 MG Tablet PO (08:41)
[2022-10-31] MEDS: Fluconazole 100 MG Tablet PO (08:41)
[2022-10-31] MEDS: Potassium Chloride Oral Tablet 20 MEQ PO ×2 (08:41→17:12)
--- NOTE | 2022-10-31 09:12 | PCM.PROGNOTE ---
Subjective Subjective Finished a 7 day course of doxy for cellulitis of the R lateral thigh Afebrile VSS Maintaining appropriate oxygen saturation on RA Oral intake is good Discussed with nursing - no problems that need addressed Reviewed the PT/OT/ST notes Medication list reviewed. All lab drawn 10/30/2022 was personally reviewed. White blood cell count is normal. Hemoglobin is stable at 11.9. Platelets are now normal at 202,000. ESR was elevated at 43. Sodium was 141 and the potassium is now within normal limits at 3.6 with additional supplementation. The BUN is 23 with a creatinine of 1.04, up from 0.9 on 10/28/2022. GFR is 56 which is consistent with stage IIIa chronic renal failure. Calcium phosphorus and magnesium are all normal. LFTs are unremarkable. CRP is elevated at 47.5. Hypercoagulable panel is pending. Wound cultures positive for methicillin sensitive Staph aureus. Objective Data Objective Data Vital Signs: Vital Signs Temp Pulse Resp BP Pulse Ox O2 Del Method 96.5 F L 66 17 114/55 L 95 Room Air 10/31/22 07:37 10/31/22 07:37 10/31/22 07:37 10/31/22 07:37 10/31/22 07:37 10/31/22 07:37 Oxygen Delivery Method Room Air Weight: 219 lb 2.232 oz Body Mass Index (BMI) 37.6 Intake & Output: Intake and Output for Last 24 Hours 10/29/22 10/30/22 10/31/22 23:59 23:59 23:59 Intake Total 540 / 540 300 / 300 560 / 560 Output Total 650 / 650 1825 / 1825 450 / 450 Balance -110 / -110 -1525 / -1525 110 / 110 Lab / Micro Data Result Diagrams: 11/09/22 05:18 11/09/22 05:18 Labs: Laboratory Results - last 24 hr 10/30/22 05:25: Miscellaneous Test Cancelled Micro: Microbiology 10/29/22 17:50 Wound - Leg, Right Gram Stain - Final 10/29/22 17:50 Wound - Leg, Right Wound Culture - Final Staphylococcus aureus Radiography Diagnostic Testing: Radiology Impression Foot X-Ray 10/29/22 18:19 IMPRESSION: Osteopenia. Degenerative changes above. Electronically Signed: Walt Leyva MD, MADIHA at 9:22 EDT , Physical Exam Const alert, oriented x3 and no apparent distress General Appearance: cooperative and well developed Resp clear to auscultation bilaterally Cardio regular rate, regular rhythm and no gallops Cardio Narrative: No ectopy GI normal to inspection, nondistended, normoactive bowel sounds, soft to palpation and non-tender GI Narrative: No guarding with palpation Extremity no calf tenderness General Extremity: Negative for edema Skin Rashes: no rashes Wound Narrative: Ulcerations on the R lateral thigh are drying up and there is no longer any DC/slough over the wound the culture was taken from. There is some redness around the wounds but, no increased warmth to touch. Psych cooperative and affect normal Appearance: appropriate Assessment & Plan Assessment/Plan (1) Debility: (2) Bimalleolar fracture of right ankle: (3) Acute blood loss anemia: (4) Multiple sclerosis: (5) Peripheral neuropathy: (6) Ulcerative pyoderma gangrenosum: (7) Foot drop, left: (8) Osteopenia: PLAN: Plan 1. Continue therapy 2. Continue nonweightbearing status 3. Observe the wounds on the right lateral thigh. I suspect she may have pyoderma gangrenosum but the treatment is steroids and this would impair healing of the right tib/fib fracture and the wound. Would defer biopsy and treatment until after the wound and the bone are healed unless things get worse. Charges/Coding Visit Charges Inpatient E&M: 30975 Subs Hosp L2
[2022-10-31] MEDS: Doxycycline 100 MG CAPSULE PO ×2 (10:23→22:10)
[2022-10-31] MEDS: Menthol/Lanolin/Calamine/Znox 113 GM Tube 1 APPLIC TOPICAL ×2 (10:27→22:20)
[2022-10-31 20:12] VITALS: BP 150/55; PULSE 72; RESP 17; TEMP 36.3; O2SAT 96
[2022-10-31] MEDS: Mupirocin Ointment 22gm Tube 1 APPLIC TOPICAL (22:08)
[2022-10-31] MEDS: Atenolol 50 MG Tablet 75 MG PO (22:09)
[2022-10-31] MEDS: Amitriptyline 100 MG Tablet PO (22:29)
[2022-10-31] MEDS: clonazePAM 0.5 MG Tablet PO (23:32)
[2022-11-01] MEDS: Enoxaparin 40 MG/0.4 ML Syringe SC (06:15)
[2022-11-01] MEDS: Mupirocin Ointment 22gm Tube 1 APPLIC TOPICAL ×2 (06:15→21:45)
[2022-11-01] MEDS: Baclofen 10 MG Tablet 30 MG PO ×3 (06:15→21:45)
[2022-11-01] MEDS: Nystatin Powder 15gm Bottle 1 APPLIC TOPICAL ×2 (06:16→21:47)
[2022-11-01] MEDS: Juven (unflavored) Packet 1 PACKET PO ×2 (09:14→17:14)
[2022-11-01] MEDS: Ibuprofen 200 MG Tablet 400 MG PO (09:15)
[2022-11-01] MEDS: Potassium Chloride Oral Tablet 20 MEQ PO ×2 (09:15→17:17)
[2022-11-01] MEDS: Pantoprazole Sodium 40 MG Tablet PO (09:15)
[2022-11-01] MEDS: Amantadine 100 MG Capsule PO ×2 (09:15→21:45)
[2022-11-01] MEDS: Doxycycline 100 MG CAPSULE PO ×2 (09:16→21:45)
[2022-11-01] MEDS: Fluconazole 100 MG Tablet PO (09:16)
[2022-11-01] MEDS: Menthol/Lanolin/Calamine/Znox 113 GM Tube 1 APPLIC TOPICAL ×2 (09:16→21:46)
[2022-11-01] MEDS: Atenolol 50 MG Tablet PO (09:17)
[2022-11-01 10:00] VITALS: BP 118/49; PULSE 67; RESP 18; TEMP 36; O2SAT 96
--- NOTE | 2022-11-01 10:09 | NURSING ---
pt in therapy room doing excercises. no c/o any pain. pt reported again about being incontinent twice last night pt thinks is having a flare stated, normally they last for 3 days and yest i slept all day and thats my usual symptom when i get a flare up
[2022-11-01] MEDS: Bumetanide 2 MG Tablet PO ×2 (11:15→17:14)
--- NOTE | 2022-11-01 11:55 | PN_ITS ---
Subjective Subjective Maria Luisa was seen on team rounds today. Her daughter Marita and her [id number] Krystal were present in the room for rounds. Day #2/7 of doxycycline Afebrile VSS Maintaining appropriate oxygen saturation on RA Oral intake is good Discussed with nursing - no problems that need addressed Reviewed the PT/OT/ST notes Medication list reviewed. Hypercoagulable panel is still pending today. Maria Luisa denies pain in her right lower extremity today. No adverse effects with Doxycycline. She denies chest pain, shortness of breath, cough, nausea/vomiting/abdominal pain, dysuria and calf tenderness. She is c/o urinary incontinence twice in the past 24 hours and tells me that this has never happened to her before. PVR's are all less than 10. No dysuria and no urgency. She was unaware that she had been incontinent last night. She tells me that at times she has had to press down on the suprapubic area to get her urine out when she is having an exacerbation of MS. She had a Long in the hospital for the surgery. Objective Data Objective Data Vital Signs: Vital Signs Temp Pulse Resp BP Pulse Ox O2 Del Method 96.8 F L 67 18 118/49 L 96 Room Air 11/01/22 10:00 11/01/22 10:00 11/01/22 10:00 11/01/22 10:00 11/01/22 10:00 11/01/22 10:00 Oxygen Delivery Method Room Air Weight: 219 lb 2.232 oz Body Mass Index (BMI) 37.6 Intake & Output: Intake and Output for Last 24 Hours 10/30/22 10/31/22 11/01/22 23:59 23:59 23:59 Intake Total 300 / 300 1410 / 1410 Output Total 1825 / 1825 900 / 900 300 / 300 Balance -1525 / -1525 510 / 510 -300 / -300 Lab / Micro Data Result Diagrams: 10/30/22 05:25 10/30/22 05:25 Micro: Microbiology 10/29/22 17:50 Wound - Leg, Right Gram Stain - Final 10/29/22 17:50 Wound - Leg, Right Wound Culture - Final Staphylococcus aureus Physical Exam Const alert, oriented x3 and no apparent distress Constitutional Narrative: Sitting in the recliner and appears comfortable. HEENT moist oral mucous membranes Resp clear to auscultation bilaterally Cardio regular rate, regular rhythm and no gallops GI normal to inspection, nondistended, normoactive bowel sounds, soft to palpation and non-tender Extremity no calf tenderness Extremity Narrative: ANGELO wraps are in place and there is no pitting edema. Skin Skin Narrative: Will examine the wounds on the R later hip the next time she is in bed and we can undress after therapy. She tells me that she has never had a skin bx. She does see a electric blasting cap assembler. [facility]. Assessment & Plan Assessment/Plan (1) Debility: (2) Bimalleolar fracture of right ankle: (3) Acute blood loss anemia: (4) Multiple sclerosis: (5) Peripheral neuropathy: (6) Ulcerative pyoderma gangrenosum: (7) Charcot's joint of left foot: PLAN: No fractures on the XRAY of the left foot. She has diffuse osteopenia and OA. (8) Foot drop, left: (9) Osteopenia: PLAN: On a vitamin D supplement but, no tx for bone loss. PLAN: Plan 1. Continue therapy. We were discussing disposition at [place] from rehab since she only got 15 days to be here by Medicare. The left leg is externally rotated and she has foot drop. The left leg is extremely weak and will not be able to support her to stand and pivot. she wants to go home but, she will not have 24/7 assistance at home. We discussed having her dtr and dtr-in-law split a shift to assist her during the day and her to assist at night. She can not get on the toilet by herself and will need a BSC. She will be NWB on the R foot for at least a few more weeks and possibly longer. We also discussed TCU post rehab to continue to work on strengthening the L leg. Family and pt are against SNF. Pt thinks she is able to do more than she can and she will not be able to remain NWB on the RLE if she attempts to stand pivot on the L leg. She is doing well with the slide board but, needs assist. Family is willing to come in for shared care training. Disposition to be determined. 2. Continue doxycycline. Would not want to use steroids in a pt with acute cellulitis without proven PG. She tends to heal very slowly and has diffuse osteopenia. Will defer bx for PG to her electric blasting cap assembler. 3. D/W Dr. Umaña and he has used bone stimulators in these type of patients. Will pursue further with him. 4. Will consider starting her on Miacalcin........she tells me that she had a rx to a medication for osteoporosis in the past that she took once a week which I suspect is a bisphosphonate. Would not want to use EVISTA in a pt who is non- ambulatory with a cast on her leg due to the increased risk for VTE, mala since there is a FH of VTE in her mother and her son. Charges/Coding Visit Charges Inpatient E&M: 28286 Subs Hosp L2
--- NOTE | 2022-11-01 13:03 | CASEMGMT ---
Addendum entered by Renuka Stephen 11/01/22 13:27: Addendum: Offered shared care with both daughters and therapy training to assist in determining care needed. Original Note: Social Work IDT met with patient and two daughters for Team meeting. Discussed patient's progress in PT/OT/ST/SN. Educated to Medicare approval of 15 days with [facility] 11/12. Pt is currently total assist and w/c level. Broached topic of alternate DC plan as and children work and cannot assist 06/12. However, pt does have electric scooter to use at home, potentially, as pt can function at a w/c level. SW offered assistance with DC planning. Educated to skilled HHC and SNF [facility] benefit. Both daughters skeptical with pt at home and compliant with restrictions, but also skeptical with retirement placement d/t their own personal beliefs. provided education to TCU and home assistance, if dtr's can split shifts. Will ReTeam weekly. Will continue to follow. LOLY Pratt
[2022-11-01 14:19] LABS: Bacteria 0 SEEN /hpf (None Seen); Mucous, Urine 0 SEEN /hpf (<or=2+); Red Blood Cells-Urine 0 SEEN /hpf (0-5)
[2022-11-01 14:21] LABS: Color, Urine Yellow (Yellow); Glucose, Dipstick Normal (Normal); Ketone-Dipstick Negative (Negative); Leukocyte Esterase-Dipstick 25 /ul (Negative); Nitrite-Dipstick Negative (Negative); Occult Blood-Urine Negative /ul (Negative); Protein-Dipstick Negative (Negative); Specific Gravity, Urine 1.015 (1.002-1.030); Urine Bilirubin Dipstick Negative (Negative); Urine Clarity Clear (Clear); Urine Urobilinogen Normal (Normal)
[2022-11-01 14:29] LABS: Squamous Epithelial Cells - UA 0-5 SEEN /hpf (5-10); White Blood Cells 0-5 SEEN /hpf (0-5)
[2022-11-01 19:45] VITALS: BP 110/50; PULSE 64; RESP 14; TEMP 36.3; O2SAT 99
[2022-11-01] MEDS: Amitriptyline 100 MG Tablet PO (21:45)
[2022-11-01] MEDS: Atenolol 50 MG Tablet 75 MG PO (21:45)
[2022-11-01] MEDS: Senna/Docusate Sodium 1 Tablet 2 TABLET PO (21:45)
[2022-11-01] MEDS: clonazePAM 0.5 MG Tablet PO (22:15)
[2022-11-02] MEDS: Baclofen 10 MG Tablet 30 MG PO ×3 (05:25→20:49)
[2022-11-02] MEDS: Enoxaparin 40 MG/0.4 ML Syringe SC (05:25)
[2022-11-02] MEDS: Mupirocin Ointment 22gm Tube 1 APPLIC TOPICAL ×2 (05:26→20:38)
[2022-11-02] MEDS: Nystatin Powder 15gm Bottle 1 APPLIC TOPICAL ×2 (05:27→20:50)
[2022-11-02 07:40] VITALS: BP 108/47; PULSE 62; RESP 16; TEMP 36; O2SAT 94
[2022-11-02] MEDS: Juven (unflavored) Packet 1 PACKET PO ×2 (08:03→17:06)
[2022-11-02] MEDS: Potassium Chloride Oral Tablet 20 MEQ PO ×2 (08:03→17:05)
[2022-11-02] MEDS: Calcium Carbonate 500 MG Tablet PO ×2 (08:04→17:06)
[2022-11-02] MEDS: Doxycycline 100 MG CAPSULE PO ×2 (09:45→20:47)
[2022-11-02] MEDS: Bumetanide 2 MG Tablet PO ×2 (09:45→17:06)
[2022-11-02] MEDS: Fluconazole 100 MG Tablet PO (09:46)
[2022-11-02] MEDS: Calcitonin-Salmon 1 SPRAY SPRAY NARES (09:46)
[2022-11-02] MEDS: Ibuprofen 200 MG Tablet 400 MG PO (09:48)
[2022-11-02] MEDS: Pantoprazole Sodium 40 MG Tablet PO (09:49)
[2022-11-02] MEDS: Amantadine 100 MG Capsule PO ×2 (09:49→20:51)
[2022-11-02] MEDS: Ergocalciferol 1.25 MG (50, 000 UNIT) Capsule PO (09:50)
[2022-11-02] MEDS: Atenolol 50 MG Tablet PO (09:50)
[2022-11-02] MEDS: Senna/Docusate Sodium 1 Tablet 2 TABLET PO ×2 (09:51→20:51)
[2022-11-02] MEDS: Menthol/Lanolin/Calamine/Znox 113 GM Tube 1 APPLIC TOPICAL ×2 (10:09→20:47)
[2022-11-02 19:17] VITALS: BP 111/58; PULSE 66; RESP 18; TEMP 36.4; O2SAT 98
[2022-11-02] MEDS: Amitriptyline 100 MG Tablet PO (20:49)
[2022-11-02] MEDS: Atenolol 50 MG Tablet 75 MG PO (20:52)
[2022-11-02 22:00] VITALS: PULSE 66; RESP 18; O2SAT 98
[2022-11-02] MEDS: clonazePAM 0.5 MG Tablet PO (23:25)
[2022-11-03] MEDS: Mupirocin Ointment 22gm Tube 1 APPLIC TOPICAL ×2 (06:13→21:55)
[2022-11-03] MEDS: Enoxaparin 40 MG/0.4 ML Syringe SC (06:22)
[2022-11-03] MEDS: Baclofen 10 MG Tablet 30 MG PO ×3 (06:23→21:53)
[2022-11-03] MEDS: Nystatin Powder 15gm Bottle 1 APPLIC TOPICAL ×2 (06:30→21:54)
[2022-11-03] MEDS: Juven (unflavored) Packet 1 PACKET PO ×2 (08:04→19:36)
[2022-11-03] MEDS: Fluconazole 100 MG Tablet PO (08:05)
[2022-11-03] MEDS: Senna/Docusate Sodium 1 Tablet 2 TABLET PO ×2 (08:05→21:52)
[2022-11-03] MEDS: Potassium Chloride Oral Tablet 20 MEQ PO ×2 (08:05→19:36)
[2022-11-03] MEDS: Atenolol 50 MG Tablet PO (08:05)
[2022-11-03] MEDS: Pantoprazole Sodium 40 MG Tablet PO (08:05)
[2022-11-03] MEDS: Bumetanide 2 MG Tablet PO ×2 (08:05→19:36)
[2022-11-03] MEDS: Doxycycline 100 MG CAPSULE PO ×2 (08:05→21:52)
[2022-11-03] MEDS: Calcium Carbonate 500 MG Tablet PO ×2 (08:05→19:37)
[2022-11-03] MEDS: Amantadine 100 MG Capsule PO ×2 (08:05→21:52)
[2022-11-03] MEDS: Ibuprofen 200 MG Tablet 400 MG PO (08:05)
[2022-11-03] MEDS: Calcitonin-Salmon 1 SPRAY SPRAY NARES (08:06)
[2022-11-03 08:08] VITALS: BP 114/57; PULSE 62; RESP 16; TEMP 35.9; O2SAT 94
[2022-11-03] MEDS: Menthol/Lanolin/Calamine/Znox 113 GM Tube 1 APPLIC TOPICAL ×2 (08:10→21:53)
--- NOTE | 2022-11-03 12:29 | PCM.PROGNOTE ---
Subjective Subjective Afebrile VSS Maintaining appropriate oxygen saturation on RA Oral intake is good Discussed with nursing - no problems that need addressed Reviewed the PT/OT/ST notes Medication list reviewed. Urine culture is still pending. Hypercoagulable panel is still pending. Maria Luisa denies lightheadedness, vertigo, CP, SOB at rest, SOB with exertion, cough, nausea, vomiting, abd pain, diarrhea, constipation, dysuria and calf pain. she states she is sleeping pretty well. She is managing the WC very well now. Objective Data Objective Data Vital Signs: Vital Signs Temp Pulse Resp BP Pulse Ox O2 Del Method 96.7 F L 62 16 114/57 L 94 Room Air 11/03/22 08:08 11/03/22 08:08 11/03/22 08:08 11/03/22 08:08 11/03/22 08:08 11/03/22 08:08 Oxygen Delivery Method Room Air Weight: 219 lb 2.232 oz Body Mass Index (BMI) 37.6 Intake & Output: Intake and Output for Last 24 Hours 11/01/22 11/02/22 11/03/22 23:59 23:59 23:59 Intake Total 910 / 910 Output Total 650 / 650 1050 / 1050 250 / 250 Balance -650 / -650 -140 / -140 -250 / -250 Lab / Micro Data Result Diagrams: 10/30/22 05:25 10/30/22 05:25 Micro: Microbiology 10/29/22 17:50 Wound - Leg, Right Gram Stain - Final 10/29/22 17:50 Wound - Leg, Right Wound Culture - Final Staphylococcus aureus Physical Exam Const alert, oriented x3 and no apparent distress Constitutional Narrative: Sitting in the recliner at the bedside. Resp clear to auscultation bilaterally Cardio regular rate and regular rhythm GI normal to inspection, nondistended, normoactive bowel sounds, soft to palpation and non-tender Extremity no calf tenderness Extremity Narrative: toes on the R foot are warm with intact sensation. Skin Skin Narrative: The ulcerations on the R lateral thigh are drying up. There is no longer any DC from the infected ulceration and the the estee-wound area is less red and less warm to touch. Psych affect normal Appearance: appropriate Assessment & Plan Assessment/Plan (1) Debility: (2) Bimalleolar fracture of right ankle: (3) Acute blood loss anemia: (4) Multiple sclerosis: (5) Peripheral neuropathy: (6) Ulcerative pyoderma gangrenosum: (7) Charcot's joint of left foot: (8) Foot drop, left: (9) Osteopenia: PLAN: Plan 1. Continue therapy. 2. Finish 7 days of cefadroxil. 3. Hold off on biopsy of the ulcerations which I suspect are secondary to PG. The lesions are stable and drying up and I would not want to start steroids to treat because they would impair wound healing. 4. consider starting a medication to promote bone growth.....will discuss with her at the next visit. Charges/Coding Visit Charges Inpatient E&M: 74532 Subs Hosp L2
[2022-11-03 20:26] VITALS: RESP 16; O2SAT 97
[2022-11-03] MEDS: Amitriptyline 100 MG Tablet PO (21:52)
[2022-11-03] MEDS: clonazePAM 0.5 MG Tablet PO (21:54)
[2022-11-03] MEDS: Atenolol 50 MG Tablet 75 MG PO (21:54)
[2022-11-03 21:57] VITALS: BP 119/52; PULSE 69; RESP 16; TEMP 36.3; O2SAT 97
[2022-11-04] MEDS: Baclofen 10 MG Tablet 30 MG PO ×3 (05:24→23:00)
[2022-11-04] MEDS: Mupirocin Ointment 22gm Tube 1 APPLIC TOPICAL ×2 (05:24→22:59)
[2022-11-04] MEDS: Enoxaparin 40 MG/0.4 ML Syringe SC (05:24)
[2022-11-04] MEDS: Nystatin Powder 15gm Bottle 1 APPLIC TOPICAL ×2 (05:26→23:07)
[2022-11-04 07:30] VITALS: BP 116/53; PULSE 64; RESP 16; TEMP 36.6; O2SAT 94
[2022-11-04] MEDS: Amantadine 100 MG Capsule PO ×2 (07:45→23:00)
[2022-11-04] MEDS: Bumetanide 2 MG Tablet PO ×2 (07:46→17:35)
[2022-11-04] MEDS: Ibuprofen 200 MG Tablet 400 MG PO (07:46)
[2022-11-04] MEDS: Atenolol 50 MG Tablet PO (07:46)
[2022-11-04] MEDS: Pantoprazole Sodium 40 MG Tablet PO (07:46)
[2022-11-04] MEDS: Calcium Carbonate 500 MG Tablet PO ×2 (07:46→17:35)
[2022-11-04] MEDS: Senna/Docusate Sodium 1 Tablet 2 TABLET PO (07:46)
[2022-11-04] MEDS: Juven (unflavored) Packet 1 PACKET PO ×2 (07:46→17:34)
[2022-11-04] MEDS: Doxycycline 100 MG CAPSULE PO ×2 (07:46→23:00)
[2022-11-04] MEDS: Ergocalciferol 1.25 MG (50, 000 UNIT) Capsule PO (07:46)
[2022-11-04] MEDS: Potassium Chloride Oral Tablet 20 MEQ PO ×2 (07:46→17:34)
[2022-11-04] MEDS: Menthol/Lanolin/Calamine/Znox 113 GM Tube 1 APPLIC TOPICAL ×2 (07:47→23:08)
[2022-11-04] MEDS: Calcitonin-Salmon 1 SPRAY SPRAY NARES (07:47)
--- NOTE | 2022-11-04 12:49 | CASEMGMT ---
Social Work informed this worker the pt and children all spoke again, and pt is agreeable to referral to TCU at [place] on 11/12. SW referred to TCU via phone and [facility]. Pt accepted. SW updated pt. Plan: [place] 11/12 to TCU, skilled Renuka Stephen, POWERHOUSE OPERATOR GREEN BUILDING MATERIALS DESIGNER
[2022-11-04 19:02] VITALS: BP 118/50; PULSE 61; RESP 18; TEMP 36.5; O2SAT 99
[2022-11-04 22:00] VITALS: PULSE 61; RESP 16; O2SAT 99
[2022-11-04] MEDS: Atenolol 50 MG Tablet 75 MG PO (23:01)
[2022-11-04] MEDS: Amitriptyline 100 MG Tablet PO (23:01)
[2022-11-04] MEDS: clonazePAM 0.5 MG Tablet PO (23:05)
[2022-11-05] MEDS: Mupirocin Ointment 22gm Tube 1 APPLIC TOPICAL ×2 (05:28→21:20)
[2022-11-05] MEDS: Enoxaparin 40 MG/0.4 ML Syringe SC (05:28)
[2022-11-05] MEDS: Baclofen 10 MG Tablet 30 MG PO ×3 (05:28→21:19)
[2022-11-05] MEDS: Nystatin Powder 15gm Bottle 1 APPLIC TOPICAL (05:29)
[2022-11-05 06:00] VITALS: BMI 38.2
[2022-11-05 07:30] VITALS: BP 113/41; PULSE 61; RESP 16; TEMP 36.4; O2SAT 94
[2022-11-05] MEDS: Ibuprofen 200 MG Tablet 400 MG PO (08:14)
[2022-11-05] MEDS: Amantadine 100 MG Capsule PO ×2 (08:14→21:24)
[2022-11-05] MEDS: Senna/Docusate Sodium 1 Tablet 2 TABLET PO ×2 (08:14→21:23)
[2022-11-05] MEDS: Pantoprazole Sodium 40 MG Tablet PO (08:14)
[2022-11-05] MEDS: Juven (unflavored) Packet 1 PACKET PO ×2 (08:14→17:06)
[2022-11-05] MEDS: Atenolol 50 MG Tablet PO (08:14)
[2022-11-05] MEDS: Calcium Carbonate 500 MG Tablet PO ×2 (08:14→17:10)
[2022-11-05] MEDS: Potassium Chloride Oral Tablet 20 MEQ PO ×2 (08:14→17:07)
[2022-11-05] MEDS: Bumetanide 2 MG Tablet PO ×2 (08:14→17:08)
[2022-11-05] MEDS: Calcitonin-Salmon 1 SPRAY SPRAY NARES (08:15)
[2022-11-05] MEDS: Doxycycline 100 MG CAPSULE PO ×2 (08:15→21:22)
[2022-11-05] MEDS: Menthol/Lanolin/Calamine/Znox 113 GM Tube 1 APPLIC TOPICAL ×2 (08:15→21:21)
--- NOTE | 2022-11-05 15:56 | PCM.PROGNOTE ---
Subjective Subjective Afebrile VSS Maintaining appropriate oxygen saturation on RA Oral intake is good Discussed with nursing - no problems that need addressed Reviewed the PT/OT/ST notes Medication list reviewed. Doing well. Denies diarrhea, vaginal discharge or itching, sore mouth or painful swallowing. Also denies chest pain, shortness of breath when at rest, cough, nausea/vomiting/abdominal pain, dysuria, lightheadedness, cephalgia, calf pain and reflux. Objective Data Objective Data Vital Signs: Vital Signs Temp Pulse Resp BP Pulse Ox O2 Del Method 97.5 F L 61 16 113/41 L 94 Room Air 11/05/22 07:30 11/05/22 07:30 11/05/22 07:30 11/05/22 07:30 11/05/22 07:30 11/05/22 07:30 Oxygen Delivery Method Room Air Weight: 222 lb 7.143 oz Body Mass Index (BMI) 38.2 Intake & Output: Intake and Output for Last 24 Hours 11/03/22 11/04/22 11/05/22 23:59 23:59 23:59 Intake Total 1290 / 1290 Output Total 450 / 450 2200 / 2200 Balance -450 / -450 -910 / -910 Lab / Micro Data Result Diagrams: 11/09/22 05:18 11/09/22 05:18 Micro: Microbiology 11/01/22 14:00 Urine, Catheterized Urine Culture - Final Strep salivarius sp salivarius Streptococcus mitis/ oralis 10/29/22 17:50 Wound - Leg, Right Gram Stain - Final 10/29/22 17:50 Wound - Leg, Right Wound Culture - Final Staphylococcus aureus Physical Exam Const alert, oriented x3 and no apparent distress General Appearance: cooperative Resp normal respiratory effort and clear to auscultation bilaterally Cardio regular rate, regular rhythm and no gallops GI normal to inspection, nondistended, normoactive bowel sounds, soft to palpation and non-tender GI Narrative: No guarding with palpation Extremity no calf tenderness Psych cooperative and affect normal Assessment & Plan Assessment/Plan (1) Debility: (2) Bimalleolar fracture of right ankle: (3) Acute blood loss anemia: (4) Multiple sclerosis: (5) Peripheral neuropathy: (6) Ulcerative pyoderma gangrenosum: (7) Foot drop, left: (8) Osteopenia: PLAN: Plan 1. Continue therapy 2. Will need to contact Dr. Umaña to find out when the cast is to be removed and sutures/daphney to be removed. 3. Continue calcium, Miacalcin and vitamin D to promote bone healing. 4. Continue Uriel for wound healing. 5. Continue enoxaparin for DVT prophylaxis. 6. Recheck lab on Tuesday Charges/Coding Visit Charges Inpatient E&M: 94098 Subs Hosp L2
[2022-11-05 19:10] VITALS: BP 104/42; PULSE 61; RESP 16; TEMP 36.3; O2SAT 98
[2022-11-05] MEDS: Amitriptyline 100 MG Tablet PO (21:23)
[2022-11-05] MEDS: Atenolol 50 MG Tablet 75 MG PO (21:24)
[2022-11-05] MEDS: clonazePAM 0.5 MG Tablet PO (21:25)
[2022-11-06] MEDS: Baclofen 10 MG Tablet 30 MG PO ×3 (04:31→20:45)
[2022-11-06] MEDS: Enoxaparin 40 MG/0.4 ML Syringe SC (04:31)
[2022-11-06] MEDS: Nystatin Powder 15gm Bottle 1 APPLIC TOPICAL ×2 (04:31→20:45)
[2022-11-06] MEDS: Mupirocin Ointment 22gm Tube 1 APPLIC TOPICAL ×2 (04:32→20:39)
[2022-11-06 08:05] VITALS: BP 116/53; PULSE 60; RESP 17; TEMP 36.6; O2SAT 99
[2022-11-06] MEDS: Potassium Chloride Oral Tablet 20 MEQ PO ×2 (08:07→16:43)
[2022-11-06] MEDS: Juven (unflavored) Packet 1 PACKET PO ×2 (08:07→16:43)
[2022-11-06] MEDS: Bumetanide 2 MG Tablet PO ×2 (08:08→16:43)
[2022-11-06] MEDS: Menthol/Lanolin/Calamine/Znox 113 GM Tube 1 APPLIC TOPICAL ×2 (08:08→20:41)
[2022-11-06] MEDS: Doxycycline 100 MG CAPSULE PO ×2 (08:08→20:44)
[2022-11-06] MEDS: Calcitonin-Salmon 1 SPRAY SPRAY NARES (08:08)
[2022-11-06] MEDS: Calcium Carbonate 500 MG Tablet PO ×2 (08:08→16:43)
[2022-11-06] MEDS: Pantoprazole Sodium 40 MG Tablet PO (08:09)
[2022-11-06] MEDS: Ibuprofen 200 MG Tablet 400 MG PO (08:09)
[2022-11-06] MEDS: Amantadine 100 MG Capsule PO ×2 (08:09→20:46)
[2022-11-06] MEDS: Atenolol 50 MG Tablet PO (08:10)
[2022-11-06 19:33] VITALS: BP 121/48; PULSE 61; RESP 18; TEMP 36.4; O2SAT 96
[2022-11-06] MEDS: Amitriptyline 100 MG Tablet PO (20:44)
[2022-11-06] MEDS: Atenolol 50 MG Tablet 75 MG PO (20:46)
[2022-11-06] MEDS: clonazePAM 0.5 MG Tablet PO (20:48)
[2022-11-07] MEDS: Enoxaparin 40 MG/0.4 ML Syringe SC (06:29)
[2022-11-07] MEDS: Baclofen 10 MG Tablet 30 MG PO ×3 (06:29→21:15)
[2022-11-07] MEDS: Nystatin Powder 15gm Bottle 1 APPLIC TOPICAL ×2 (06:30→21:16)
[2022-11-07] MEDS: Mupirocin Ointment 22gm Tube 1 APPLIC TOPICAL ×2 (06:31→21:14)
[2022-11-07 07:06] VITALS: BP 122/61; PULSE 56; RESP 19; TEMP 36.2; O2SAT 95
[2022-11-07] MEDS: Juven (unflavored) Packet 1 PACKET PO ×2 (08:03→17:20)
[2022-11-07] MEDS: Potassium Chloride Oral Tablet 20 MEQ PO ×2 (08:03→17:20)
[2022-11-07] MEDS: Amantadine 100 MG Capsule PO ×2 (08:03→21:16)
[2022-11-07] MEDS: Bumetanide 2 MG Tablet PO ×2 (08:04→17:21)
[2022-11-07] MEDS: Atenolol 50 MG Tablet PO (08:04)
[2022-11-07] MEDS: Pantoprazole Sodium 40 MG Tablet PO (08:04)
[2022-11-07] MEDS: Calcium Carbonate 500 MG Tablet PO ×2 (08:04→17:21)
[2022-11-07] MEDS: Ibuprofen 200 MG Tablet 400 MG PO (08:05)
[2022-11-07] MEDS: Calcitonin-Salmon 1 SPRAY SPRAY NARES (08:06)
[2022-11-07] MEDS: Menthol/Lanolin/Calamine/Znox 113 GM Tube 1 APPLIC TOPICAL ×2 (14:13→21:15)
[2022-11-07 19:31] VITALS: BP 107/62; PULSE 63; RESP 18; TEMP 36.5; O2SAT 96
[2022-11-07] MEDS: Amitriptyline 100 MG Tablet PO (21:15)
[2022-11-07] MEDS: Atenolol 50 MG Tablet 75 MG PO (21:16)
[2022-11-07] MEDS: clonazePAM 0.5 MG Tablet PO (21:17)
[2022-11-08] MEDS: Baclofen 10 MG Tablet 30 MG PO ×3 (04:47→21:20)
[2022-11-08] MEDS: Enoxaparin 40 MG/0.4 ML Syringe SC (04:47)
[2022-11-08] MEDS: Nystatin Powder 15gm Bottle 1 APPLIC TOPICAL ×2 (04:53→21:21)
[2022-11-08] MEDS: Mupirocin Ointment 22gm Tube 1 APPLIC TOPICAL ×2 (04:53→21:21)
[2022-11-08 08:04] VITALS: BP 121/53; PULSE 57; RESP 18; TEMP 36.1; O2SAT 96
[2022-11-08] MEDS: Juven (unflavored) Packet 1 PACKET PO ×2 (08:48→16:46)
[2022-11-08] MEDS: Calcitonin-Salmon 1 SPRAY SPRAY NARES (08:49)
[2022-11-08] MEDS: Potassium Chloride Oral Tablet 20 MEQ PO ×2 (08:50→16:46)
[2022-11-08] MEDS: Calcium Carbonate 500 MG Tablet PO ×2 (08:50→16:46)
[2022-11-08] MEDS: Menthol/Lanolin/Calamine/Znox 113 GM Tube 1 APPLIC TOPICAL ×2 (08:51→21:21)
[2022-11-08] MEDS: Bumetanide 2 MG Tablet PO ×2 (08:51→16:46)
[2022-11-08] MEDS: Pantoprazole Sodium 40 MG Tablet PO (08:51)
[2022-11-08] MEDS: Amantadine 100 MG Capsule PO ×2 (08:51→21:20)
[2022-11-08] MEDS: Ibuprofen 200 MG Tablet 400 MG PO (08:51)
[2022-11-08] MEDS: Atenolol 50 MG Tablet PO (08:51)
--- NOTE | 2022-11-08 11:22 | PCM.PROGNOTE ---
Subjective Subjective Maria Luisa was seen on team rounds today. Afebrile VSS Maintaining appropriate oxygen saturation on RA Oral intake is good Discussed with nursing - no problems that need addressed Reviewed the PT/OT/ST notes Medication list reviewed. Nursing had the pt in the Batsheva-Lift and she put weight on the R leg. When she was lying in bed, she felt a pop in the leg and she tells me that she does not feel like her R leg is doing what she wants. She still has intact sensation in ht toes on the R foot. Cast padding is dry. Detail in the XRAY we obtained today is somewhat obscured by the cast but, everything appears to remain well aligned. Maria Luisa denies lightheadedness, vertigo, CP, SOB at rest, SOB with exertion, cough, nausea, vomiting, abd pain, diarrhea, constipation, dysuria, calf pain and ankle swelling. She denies a bad taste in her mouth or painful swallowing and also denies vaginal itching/discharge and diarrhea. Objective Data Objective Data Vital Signs: Vital Signs Temp Pulse Resp BP Pulse Ox O2 Del Method 96.9 F L 57 L 18 121/53 H 96 Room Air 11/08/22 08:04 11/08/22 08:04 11/08/22 08:04 11/08/22 08:04 11/08/22 08:04 11/08/22 08:04 Oxygen Delivery Method Room Air Weight: 222 lb 7.143 oz Body Mass Index (BMI) 38.2 Intake & Output: Intake and Output for Last 24 Hours 11/06/22 11/07/22 11/08/22 23:59 23:59 23:59 Intake Total 350 / 350 600 / 600 Output Total 375 / 375 150 / 150 600 / 600 Balance -25 / -25 450 / 450 -600 / -600 Lab / Micro Data Result Diagrams: 10/30/22 05:25 10/30/22 05:25 Micro: Microbiology 11/01/22 14:00 Urine, Catheterized Urine Culture - Final Strep salivarius sp salivarius Streptococcus mitis/ oralis 10/29/22 17:50 Wound - Leg, Right Gram Stain - Final 10/29/22 17:50 Wound - Leg, Right Wound Culture - Final Staphylococcus aureus Physical Exam Const alert and no apparent distress Constitutional Narrative: Sitting in the recliner at the bedside. General Appearance: cooperative HEENT moist oral mucous membranes Eyes PERRL, EOMs intact bilaterally, conjunctivae normal and no scleral icterus Neck supple, No nodes and no carotid bruits General: trachea midline Resp normal respiratory effort, no use of accessory muscles and clear to auscultation bilaterally Resp Narrative: Not tachypneic. Effort and Inspection: Negative for tachypneic or labored Cardio regular rate, regular rhythm and no gallops Cardio Narrative: No ectopy Jugular Venous Distention: Negative for JVD GI normal to inspection, nondistended, normoactive bowel sounds, non-tender and non-distended GI Narrative: no guarding with palpation Extremity Negative for no calf tenderness Extremity Narrative: toes on the R foot are warm with intact sensation. General Extremity: Negative for edema Skin Skin Narrative: The ulcerations on the proximal right lateral thigh are drying up and a few of them have completely resolved. There is no discharge and no increased warmth to touch in the area. We will continue to monitor. General Skin Exam: no breakdown Rashes: no rashes Neuro oriented x3 and CN's II-XII intact bilaterally Neuro Narrative: Decreased sensation in both distal LE's. the left leg is very weak and she is unable to lift it off the bed. she has some plantar flexion but, very minimal dorsi flexion. The RLE is in a cast from the toes to the knee. She has good strength in the arms. No facial asymmetry. No visual loss. Can not flex the Left knee. She is able to move abduct and adduct the left leg on the bed. Psych affect normal Appearance: grossly normal, appropriate and well kempt Attitude: calm Assessment & Plan Assessment/Plan (1) Debility: (2) Bimalleolar fracture of right ankle: (3) Acute blood loss anemia: (4) Multiple sclerosis: (5) Peripheral neuropathy: (6) Ulcerative pyoderma gangrenosum: (7) Charcot's joint of left foot: PLAN: ruled out on XRAY (8) Foot drop, left: (9) Osteopenia: PLAN: Tolerating the Miacalcin with no adverse effects. PLAN: Plan 1. Continue therapy 2. CBC, BMP, ESR and CRP in the AM. 3. Continue nonweightbearing status. 4. At discharge from acute rehab will go to half-way on TCU. 5. I sent a text to Dr. Umaña notifying him of the XRAY done today and asking when the cast will come off. Maria Luisa denies any pain in the RLE at this time. 6. Pt was told never to allow the Batsheva Lift to be used on her. She is to be strictly NWB. We will tell her when it is OK to TTWB. Charges/Coding Visit Charges Inpatient E&M: 53411 Subs Hosp L2
--- NOTE | 2022-11-08 12:46 | CASEMGMT ---
Social Work IDT met with patient and daughter for Team meeting. Discussed patient's progress in PT/OT/ST/SN. Confirmed DC 11/12 to TCU, skilled until pt can DC home. No other issues noted. Plan: DC 11/11 to TCU LOLY PrattW
--- NOTE | 2022-11-08 13:22 | RAD_ITS ---
INDICATION: pain -- portable EXAMINATION/TECHNIQUE: X-RAY - RIGHT XR Ankle 2 Views 2 VIEWS COMPARISON: 10/25/2022. FINDINGS: SOFT TISSUES: The ankle is in cast obscuring the soft tissues and bony details. Mobile on the lateral aspect of the ankle. BONES/JOINTS: Plate and screws securing fracture of the distal fibula. Screws traversing the medial malleolus unchanged in alignment or position since the previous exam.. Preservation of the joint space.. RAD/Ankle 2 Views IMPRESSION: Postoperative changes as described above. Electronically Signed: Good Orlando MD at 14:32 EDT ,
--- NOTE | 2022-11-08 13:22 | RAD_ITS ---
INDICATION: pain -- portable EXAMINATION/TECHNIQUE: X-RAY - RIGHT XR Foot 2 Views 2 VIEWS COMPARISON: None. FINDINGS: SOFT TISSUES: The foot and ankle are in cast obscuring the soft tissues and bony details. End daphney are seen. BONES/JOINTS: Sideplate and screws in the distal fibula and screws traversing the medial malleolus.. Demonstrated acute fracture. Preservation of the joint space.. RAD/Foot 2 Views IMPRESSION: Postoperative changes as described above. Electronically Signed: Good Orlando MD at 14:33 EDT ,
[2022-11-08 19:21] VITALS: BP 116/47; PULSE 59; RESP 17; TEMP 36.7; O2SAT 100
[2022-11-08] MEDS: clonazePAM 0.5 MG Tablet PO (21:19)
[2022-11-08] MEDS: Senna/Docusate Sodium 1 Tablet 2 TABLET PO (21:20)
[2022-11-08] MEDS: Atenolol 50 MG Tablet 75 MG PO (21:20)
[2022-11-08] MEDS: Amitriptyline 100 MG Tablet PO (21:20)
[2022-11-09 05:25] LABS: Absolute Neutrophil Count 3.3 X10^3/uL (2.0-7.7); Basophil# 0.06 X10^3/uL; Basophil% 1.2 % (0-1); Eosinophil# 0.15 X10^3/uL; Eosinophils% 2.9 % (0-5); Hematocrit 35.1 % (37-47); Hemoglobin 11.3 g/dL (12.0-15.0); Lymphocyte % 17.3 % (19-41); Mean Corp Hgb Conc 32.2 g/dL (32-36); Mean Corpuscular Hgb 32.3 pg (27.0-32.0); Mean Corpuscular Volume 100.3 fL (81-99); Mean Platelet Vol. 11.5 fl (6.2-12.0); Monocyte# 0.76 X10^3/uL; Monocyte% 14.6 % (0-10); NRBC Flagged by Analyzer 0 % (0-5); Neutrophil # 3.31 X10^3/uL (2.7-7.7); Neutrophil % 63.4 % (47-70); Platelet Count 174 K/mm3 (150-450); RBC Distribution Width CV 13.3 % (11.6-14.6); RBC Distribution Width SD 48.4 fl (35.1-43.9); White Blood Count 5.2 K/mm3 (4.4-11.0)
[2022-11-09 05:48] LABS: Anion Gap 6 (5-15); BUN 39 mg/dL (7-18); BUN/Creat Ratio 36.1 RATIO (10-20); CRP 4.47 mg/L (0.0-3.0); Calcium,Total 8.9 mg/dL (8.5-10.1); Chloride 106 mmol/L (98-107); Creatinine, Serum 1.08 mg/dL (0.55-1.02); EST Glomerular Filtration Rate 54 mL/min (>60); Est Glom Filt Rate - Afr Amer 65 mL/min (>60); Estimated Creatinine Clearance 44.84 ml/min; Glucose 93 mg/dL (74-106); Potassium 3.8 mmol/L (3.5-5.1); Sodium Level 142 mmol/L (136-145)
[2022-11-09] MEDS: Baclofen 10 MG Tablet 30 MG PO ×3 (06:19→21:45)
[2022-11-09] MEDS: Enoxaparin 40 MG/0.4 ML Syringe SC (06:19)
[2022-11-09] MEDS: Nystatin Powder 15gm Bottle 1 APPLIC TOPICAL ×2 (06:21→21:49)
[2022-11-09] MEDS: Mupirocin Ointment 22gm Tube 1 APPLIC TOPICAL ×2 (06:21→21:48)
[2022-11-09 07:12] VITALS: BP 124/48; PULSE 60; RESP 16; TEMP 36.4; O2SAT 95
[2022-11-09 07:28] LABS: Erythrocyte Sedimentation Rate 14 mm/hr (0-30)
[2022-11-09] MEDS: Calcitonin-Salmon 1 SPRAY SPRAY NARES (07:49)
[2022-11-09] MEDS: Calcium Carbonate 500 MG Tablet PO ×2 (07:50→16:53)
[2022-11-09] MEDS: Potassium Chloride Oral Tablet 20 MEQ PO ×2 (07:50→16:53)
[2022-11-09] MEDS: Juven (unflavored) Packet 1 PACKET PO ×2 (07:50→16:53)
[2022-11-09] MEDS: Menthol/Lanolin/Calamine/Znox 113 GM Tube 1 APPLIC TOPICAL ×2 (07:50→21:49)
[2022-11-09] MEDS: Pantoprazole Sodium 40 MG Tablet PO (07:51)
[2022-11-09] MEDS: Amantadine 100 MG Capsule PO ×2 (07:51→21:46)
[2022-11-09] MEDS: Ibuprofen 200 MG Tablet 400 MG PO (07:51)
[2022-11-09] MEDS: Bumetanide 2 MG Tablet PO (07:52)
[2022-11-09] MEDS: Atenolol 50 MG Tablet PO (07:52)
[2022-11-09] MEDS: Ergocalciferol 1.25 MG (50, 000 UNIT) Capsule PO (07:52)
--- NOTE | 2022-11-09 13:52 | PN_ITS ---
Subjective Subjective Afebrile VSS Maintaining appropriate oxygen saturation on RA Oral intake is good Discussed with nursing - no problems that need addressed Reviewed the PT/OT/ST notes Medication list reviewed. All lab drawn this morning was personally reviewed. White blood cell count is normal at 5.2. Hemoglobin is stable at 11.3. MCV is elevated at 100.3, likely indicating increased reticulocytosis secondary to anemia. Platelets are normal and the differential is unremarkable. BMP is remarkable for an elevated BUN at 39 with a creatinine of 1.08, up from 1.04 on 10/30/2022 and from 0.9 on 10/28/2022. CRP is 4.47, down from 47.5 on 10/30/2022. ESR is 14 today, down from 43 on 10/30/2022. No NOVOA, cough, shortness of breath, chest pain, nausea/vomiting/abdominal pain, dysuria, calf pain or lightheadedness. Denies any more problems with urine retention. Objective Data Objective Data Vital Signs: Vital Signs Temp Pulse Resp BP Pulse Ox O2 Del Method 97.6 F L 60 16 124/48 H 95 Room Air 11/09/22 07:12 11/09/22 07:12 11/09/22 07:12 11/09/22 07:12 11/09/22 07:12 11/09/22 07:12 Oxygen Delivery Method Room Air Weight: 222 lb 7.143 oz Body Mass Index (BMI) 38.2 Intake & Output: Intake and Output for Last 24 Hours 11/07/22 11/08/22 11/09/22 23:59 23:59 23:59 Intake Total 600 / 600 250 / 250 600 / 600 Output Total 150 / 150 950 / 950 350 / 350 Balance 450 / 450 -700 / -700 250 / 250 Lab / Micro Data Result Diagrams: 11/09/22 05:18 11/09/22 05:18 Labs: Laboratory Results - last 24 hr 11/09/22 05:18: WBC 5.2, RBC 3.50 L, Hgb 11.3 L, Hct 35.1 L, MCV 100.3 H, MCH 32.3 H, MCHC 32.2, RDW Std Deviation 48.4 H, RDW Coeff of Caty 13.3, Plt Count 174, MPV 11.5, Immature Gran % (Auto) 0.600, Neut % (Auto) 63.4, Lymph % (Auto) 17.3 L, [place] % (Auto) 14.6 H, Eos % (Auto) 2.9, Baso % (Auto) 1.2 H, Absolute Neuts (auto) 3.3, Absolute Lymphs (auto) 0.90, Nucleated RBC % 0, ESR 14 11/09/22 05:18: Sodium 142, Potassium 3.8, Chloride 106, Carbon Dioxide 30.0, Anion Gap 6, BUN 39 H, Creatinine 1.08 H, Estim Creat Clear Calc 44.84, Est GFR (MDRD) Af Amer 65, Est GFR (MDRD) Non-Af 54 L, BUN/Creatinine Ratio 36.1 H, Glucose 93, Calcium 8.9, C-React Prot Ext Range 4.47 H Micro: Microbiology 11/01/22 14:00 Urine, Catheterized Urine Culture - Final Strep salivarius sp salivarius Streptococcus mitis/ oralis 10/29/22 17:50 Wound - Leg, Right Gram Stain - Final 10/29/22 17:50 Wound - Leg, Right Wound Culture - Final Staphylococcus aureus Radiography Diagnostic Testing: Radiology Impression Ankle X-Ray 11/08/22 13:22 IMPRESSION: Postoperative changes as described above. Electronically Signed: Good Orlando MD at 14:32 EDT , Foot X-Ray 11/08/22 13:22 IMPRESSION: Postoperative changes as described above. Electronically Signed: Good Orlando MD at 14:33 EDT , Physical Exam Const alert, oriented x3 and no apparent distress Constitutional Narrative: She is a little down in the dumps today because she is homesick but, she is realistic and wants the leg to heal. She will not be able to maintain TTWB since the left leg is so weak. General Appearance: cooperative HEENT Mouth: dry mucous membranes Resp normal respiratory effort and clear to auscultation bilaterally Effort and Inspection: Negative for tachypneic Cardio regular rate, regular rhythm and no gallops GI normal to inspection, nondistended, normoactive bowel sounds, soft to palpation and non-tender Palpation: Negative for guarding Extremity no calf tenderness Extremity Narrative: intact sensation to the R foot. The toes are warm. General Extremity: Negative for edema Skin Rashes: no rashes Assessment & Plan Assessment/Plan (1) Hypovolemia dehydration: (2) Debility: (3) Bimalleolar fracture of right ankle: (4) Acute blood loss anemia: (5) Multiple sclerosis: (6) Peripheral neuropathy: (7) Ulcerative pyoderma gangrenosum: (8) Charcot's joint of left foot: (9) Foot drop, left: (10) Osteopenia: PLAN: Plan 1. Continue therapy 2. Start intake and outputs daily. 3. Encouraged her to increase fluid intake today. Hold the Bumex tomorrow and restart at once a day on . Recheck lab on Tuesday. 4. Dr. Umaña will come in and check the case and possibly remove this week and put he in a boot. Best to maintain NNWB on the RLE because she is not able to maintain TTWB, mala with the Left leg being so weak. 5. Continue calcium, Miacalcin and vitamin D to promote bone healing and continue Uriel to promote wound healing. 6. DC to TCU on Tuesday. She will get a pass to attend a graduation democrat on Tuesday. 7. Continue enoxaparin for DVT prophylaxis. 8. NSAID's can delay bone healing......if it does not appear to be healing would consider discontinuing. She takes this for pain control and only takes one daily. Charges/Coding Visit Charges Inpatient E&M: 29549 Subs Hosp L2
[2022-11-09 19:29] VITALS: BP 116/59; PULSE 60; RESP 17; TEMP 36.4; O2SAT 98
[2022-11-09] MEDS: Atenolol 50 MG Tablet 75 MG PO (21:46)
[2022-11-09] MEDS: Amitriptyline 100 MG Tablet PO (21:46)
[2022-11-09] MEDS: clonazePAM 0.5 MG Tablet PO (21:55)
[2022-11-10] MEDS: Mupirocin Ointment 22gm Tube 1 APPLIC TOPICAL ×2 (05:50→22:34)
[2022-11-10] MEDS: Enoxaparin 40 MG/0.4 ML Syringe SC (05:50)
[2022-11-10] MEDS: Baclofen 10 MG Tablet 30 MG PO ×3 (05:50→22:33)
[2022-11-10] MEDS: Nystatin Powder 15gm Bottle 1 APPLIC TOPICAL ×2 (05:50→22:31)
[2022-11-10 08:14] VITALS: BP 112/52; PULSE 59; RESP 16; TEMP 36.1; O2SAT 98
[2022-11-10] MEDS: Juven (unflavored) Packet 1 PACKET PO ×2 (09:07→16:41)
[2022-11-10] MEDS: Calcitonin-Salmon 1 SPRAY SPRAY NARES (09:07)
[2022-11-10] MEDS: Bumetanide 2 MG Tablet PO (09:08)
[2022-11-10] MEDS: Menthol/Lanolin/Calamine/Znox 113 GM Tube 1 APPLIC TOPICAL ×2 (09:08→22:34)
[2022-11-10] MEDS: Ibuprofen 200 MG Tablet 400 MG PO (09:08)
[2022-11-10] MEDS: Calcium Carbonate 500 MG Tablet PO ×2 (09:08→16:41)
[2022-11-10] MEDS: Potassium Chloride Oral Tablet 20 MEQ PO ×2 (09:08→16:42)
[2022-11-10] MEDS: Amantadine 100 MG Capsule PO ×2 (09:09→22:33)
[2022-11-10] MEDS: Atenolol 50 MG Tablet PO (09:09)
[2022-11-10] MEDS: Pantoprazole Sodium 40 MG Tablet PO (09:09)
--- NOTE | 2022-11-10 13:31 | CON.PCM_ITS ---
Assessment & Plan Assessment/Plan (1) Bimalleolar avulsion fracture of right ankle: PLAN: Exam performed radiographs reviewed, no loss of correction splint removed, daphney aseptically removed patient can shower, but the dressing should be removed prior and replaced afterwards (adaptic, 4x4s, kerlix, june bandage) Dispensed a cam boot to initiate 25-50% weightbearing assisted by walker continue physical therapy I will follow patient weekly HPI Consult Data Date of Consult: 11/10/22 HPI Narrative HPI Narrative: MEGGAN KITCHEN, is a 66 F who was seen bedside 2 weeks after right ankle orif on 10/25/22. Denies pain/constitutionals/chest pain/calf pain or shortness of breath. Patient recovering in rehab and compliant with weightbearing restrictions. [facility] Medical History (Updated 11/10/22 @ 13:[address] Juan Manuel Umaña, DPAlessandro) Anxiety Bimalleolar fracture of right ankle COVID-19 Difficulty swallowing Exacerbation of multiple sclerosis Former smoker Gastric reflux History of gastric polyp History of GI bleed History of stress test Hypertension Migraine headache Multiple sclerosis Osteopenia Peripheral neuropathy Shortness of breath on exertion Home Medications amitriptyline 100 mg tablet 100 mg PO QHS DEPRESSION 08/04/14 [History Last Taken 09/03/18] atenolol 50 mg tablet 50 mg PO DAILY BLOOD PRESSURE 08/04/14 [History Last Taken 03/24/22] atenolol 50 mg tablet 75 mg PO QHS BLOOD PRESSURE 08/04/14 [History Last Taken 09/03/18] baclofen 20 mg tablet 30 mg PO Q8 MS 08/04/14 [History Last Taken 09/03/18] cholecalciferol (vitamin D3) 1,250 mcg (50,000 unit) capsule 50,000 unit PO TUTH Supplement 08/04/14 [History Last Taken 10/28/22 09:00] cyanocobalamin (vitamin B-12) 1,000 mcg/mL injection solution 100 mcg IM Q30D SUPPLEMENT 08/04/14 [History Last Taken 10/18/22 10:00] ibuprofen 200 mg tablet 400 mg PO DAILY PAIN 08/04/14 [History Last Taken 10/28/22 09:30] tramadol 50 mg tablet 50 mg PO Q6H PRN PRN Pain 1-10 09/03/18 [History Last Taken Unknown] amantadine HCl 100 mg capsule 100 mg PO BID SPASMS 09/04/18 [History Last Taken Unknown] bumetanide 2 mg tablet 2 mg PO BID WATER PILL 09/04/18 [History Last Taken Unknown] sumatriptan succinate 50 mg tablet (Imitrex) 50 mg PO ONCE PRN migraine headache 03/01/22 [History Last Taken Unknown] clonazepam 0.5 mg tablet (Klonopin) 0.5 mg PO QHS PRN Spasms 10/25/22 [History Last Taken Unknown] pantoprazole 40 mg tablet,delayed release 40 mg PO DAILY STOMACH 10/25/22 [History Last Taken Unknown] potassium chloride 20 mEq tablet,extended release(part/cryst) 20 meq PO DAILY SUPPLEMENT 10/25/22 [History Last Taken Unknown] enoxaparin 40 mg/0.4 mL subcutaneous syringe (Lovenox) 40 mg subcut DAILY@0600 C heck with primary doctor 10/28/22 [History Last Taken Unknown] Allergy/AdvReac Type Severity Reaction Status Date / Time adhesive AdvReac RED Verified 10/24/22 22:15 amlodipine besylate AdvReac Nausea Verified 10/24/22 22:15 [From Lotrel] benazepril HCl [From Lotrel] AdvReac Nausea Verified 10/24/22 22:15 codeine AdvReac Nausea Verified 10/24/22 22:15 latex AdvReac RED Verified 10/24/22 22:15 Penicillins AdvReac Nausea Verified 10/24/22 22:15 Family History (Updated 10/29/22 @ 16:[address] Sosa Alcala DO) Brother Diabetes Heart disease Kidney disease Cancer Mother Diabetes Hypertension Thyroid disorder VTE (venous thromboembolism) Son VTE (venous thromboembolism) Surgical History (Updated 10/29/22 @ 17:[address] Sosa Alcala DO) History of cataract surgery History of colonoscopy History of hysterectomy History of skin surgery History of surgical procedure on mouth Social History (Updated 10/29/22 @ 16:[address] Sosa Alcala DO) household members: spouse housing: house pets and animals: Yes Smoking Status: Former smoker pack-years: 35 Tobacco: How many years used: 35 how long ago did patient quit smoking: quit smoking in 2008 and started as a teenager. alcohol intake: never substance use type: does not use additional social history: uses ibuprofen daily Physical Exam Const alert and oriented x3 Constitutional Narrative: no signs of DVT (minimal swelling, no pain with calf squeeze) right ankle incisions healed x2 (medial/lateral ankle) - daphney intact - no signs of infection dorsalis pedis/posterior tibial pulses intact Lab / Micro Data 11/09/22 05:18 11/09/22 05:18
--- NOTE | 2022-11-10 15:13 | NURSING ---
Dr Umaña in to see pt. Fely removed & CAM boot applied. Boot is to be worn at all times. Adaptic and gauze, Ez and june wrap applied. drsg to be changed weekly unless pt showers than ok to remove for shower. TTWB to help with slide board only.
[2022-11-10 20:00] VITALS: BP 118/53; PULSE 68; RESP 16; TEMP 36.1; O2SAT 95
[2022-11-10] MEDS: clonazePAM 0.5 MG Tablet PO (22:32)
[2022-11-10] MEDS: Atenolol 50 MG Tablet 75 MG PO (22:32)
[2022-11-10] MEDS: Amitriptyline 100 MG Tablet PO (22:33)
[2022-11-11] MEDS: traMADol 50 MG Tablet PO (01:14)
[2022-11-11] MEDS: Baclofen 10 MG Tablet 30 MG PO ×3 (05:47→21:32)
[2022-11-11] MEDS: Enoxaparin 40 MG/0.4 ML Syringe SC (05:47)
[2022-11-11] MEDS: Mupirocin Ointment 22gm Tube 1 APPLIC TOPICAL ×2 (05:50→21:32)
[2022-11-11] MEDS: Nystatin Powder 15gm Bottle 1 APPLIC TOPICAL (05:50)
[2022-11-11] MEDS: Calcium Carbonate 500 MG Tablet PO ×2 (09:14→17:39)
[2022-11-11] MEDS: Bumetanide 2 MG Tablet PO (09:14)
[2022-11-11] MEDS: Potassium Chloride Oral Tablet 20 MEQ PO ×2 (09:14→17:39)
[2022-11-11] MEDS: Juven (unflavored) Packet 1 PACKET PO ×2 (09:14→17:38)
[2022-11-11] MEDS: Calcitonin-Salmon 1 SPRAY SPRAY NARES (09:15)
[2022-11-11] MEDS: Ibuprofen 200 MG Tablet 400 MG PO (09:16)
[2022-11-11] MEDS: Amantadine 100 MG Capsule PO ×2 (09:16→21:32)
[2022-11-11] MEDS: Senna/Docusate Sodium 1 Tablet 2 TABLET PO (09:16)
[2022-11-11] MEDS: Ergocalciferol 1.25 MG (50, 000 UNIT) Capsule PO (09:16)
[2022-11-11] MEDS: Pantoprazole Sodium 40 MG Tablet PO (09:16)
[2022-11-11] MEDS: Atenolol 50 MG Tablet PO (09:17)
[2022-11-11 09:20] VITALS: BP 107/47; PULSE 64; RESP 16; TEMP 36.1; O2SAT 96
[2022-11-11] MEDS: Menthol/Lanolin/Calamine/Znox 113 GM Tube 1 APPLIC TOPICAL ×2 (09:24→21:32)
--- NOTE | 2022-11-11 12:19 | PN_ITS ---
Subjective Subjective Afebrile VSS Maintaining appropriate oxygen saturation on RA Oral intake is good Discussed with nursing - no problems that need addressed Reviewed the PT/OT/ST notes Medication list reviewed. Maria Luisa denies lightheadedness, vertigo, CP, SOB at rest, SOB with exertion, cough, nausea, vomiting, abd pain, diarrhea, constipation, dysuria, calf pain and ankle swelling. She is very upbeat and making good progress in therapy. Dr. Umaña removed the cast yesterday and she is now in a CAM boot. He also removed the daphney. Maria Luisa is now 25-50% wt bearing on the RLE. Objective Data Objective Data Vital Signs: Vital Signs Temp Pulse Resp BP Pulse Ox O2 Del Method 97.0 F L 64 16 107/47 L 96 Room Air 11/11/22 09:20 11/11/22 09:20 11/11/22 09:20 11/11/22 09:20 11/11/22 09:20 11/11/22 09:20 Oxygen Delivery Method Room Air Weight: 222 lb 7.143 oz Body Mass Index (BMI) 38.2 Intake & Output: Intake and Output for Last 24 Hours 11/09/22 11/10/22 11/11/22 23:59 23:59 23:59 Intake Total 1080 / 1080 1680 / 1680 400 / 400 Output Total 1110 / 1110 1400 / 1400 Balance -30 / -30 280 / 280 400 / 400 Lab / Micro Data 11/12/22 05:52 11/12/22 05:52 Micro: Microbiology 11/01/22 14:00 Urine, Catheterized Urine Culture - Final Strep salivarius sp salivarius Streptococcus mitis/ oralis 10/29/22 17:50 Wound - Leg, Right Gram Stain - Final 10/29/22 17:50 Wound - Leg, Right Wound Culture - Final Staphylococcus aureus Physical Exam Const alert, oriented x3 and no apparent distress General Appearance: cooperative Resp clear to auscultation bilaterally Cardio regular rate, regular rhythm and no gallops GI normal to inspection, nondistended, normoactive bowel sounds, soft to palpation and non-tender Extremity no calf tenderness General Extremity: edema right (Mostly of the distal R calf and the ankle ) Skin Skin Narrative: The incision are Wound Narrative: The incisions are intact with no dehiscence. There is no estee-incisional eryt nuris and no DC from the incisions. Assessment & Plan Assessment/Plan (1) Debility: (2) Bimalleolar avulsion fracture of right ankle: (3) Multiple sclerosis: (4) History of open reduction and internal fixation (ORIF) procedure: (5) Ulcerative pyoderma gangrenosum: (6) Acute blood loss anemia: (7) Peripheral neuropathy: (8) Foot drop, left: (9) Osteopenia: QUALIFIERS: Osteopenia location: multiple sites Qualified Code(s): M85.89 - Other specified disorders of bone density and structure, multiple sites (10) Hypovolemia dehydration: (11) Acid reflux: QUALIFIERS: Esophagitis presence: without esophagitis Qualified Code(s): K21.9 - Gastro-esophageal reflux disease without esophagitis (12) HTN (hypertension): QUALIFIERS: Hypertension type: primary hypertension Qualified Code(s): I10 - Essential (primary) hypertension PLAN: Plan 1. Continue therapy - PT tells me that Maria Luisa will now be able to stand and pivot with 2 nurses starting today. She is not to ambulate with nursing. She will remain partial wt bearing on the RLE while standing. PT will tell me when it is safe for her to ambulate with nursing. She must be able to maintain partial wt bearing on the RLE before she can ambulate with anyone other than PT. 2. Check a BMP and HH in the AM Charges/Coding Visit Charges Inpatient E&M: 02337 Subs Hosp L2
[2022-11-11] MEDS: Amitriptyline 100 MG Tablet PO (21:32)
[2022-11-11] MEDS: Atenolol 50 MG Tablet 75 MG PO (21:33)
[2022-11-11 22:00] VITALS: BP 105/41; PULSE 60; RESP 17; TEMP 36.6; O2SAT 97
[2022-11-11] MEDS: clonazePAM 0.5 MG Tablet PO (22:01)
--- NOTE | 2022-11-12 03:41 | NURSING ---
Reviewed and agree with Ritchie PAUL's, documentation and assessment charting.
[2022-11-12 06:12] LABS: Hematocrit 32.4 % (37-47); Hemoglobin 10.5 g/dL (12.0-15.0)
[2022-11-12] MEDS: Enoxaparin 40 MG/0.4 ML Syringe SC (06:34)
[2022-11-12] MEDS: Baclofen 10 MG Tablet 30 MG PO (06:35)
[2022-11-12] MEDS: Mupirocin Ointment 22gm Tube 1 APPLIC TOPICAL (06:36)
[2022-11-12] MEDS: Nystatin Powder 15gm Bottle 1 APPLIC TOPICAL (06:36)
[2022-11-12 06:42] LABS: Anion Gap 3 (5-15); BUN 34 mg/dL (7-18); BUN/Creat Ratio 37.2 RATIO (10-20); Calcium,Total 8.8 mg/dL (8.5-10.1); Chloride 111 mmol/L (98-107); Creatinine, Serum 0.91 mg/dL (0.55-1.02); EST Glomerular Filtration Rate 65 mL/min (>60); Est Glom Filt Rate - Afr Amer 79 mL/min (>60); Estimated Creatinine Clearance 53.22 ml/min; Glucose 83 mg/dL (74-106); Potassium 3.9 mmol/L (3.5-5.1); Sodium Level 142 mmol/L (136-145)
[2022-11-12 07:54] VITALS: BP 103/41; PULSE 59; RESP 16; TEMP 36.3; O2SAT 95
[2022-11-12] MEDS: Amantadine 100 MG Capsule PO (09:25)
[2022-11-12] MEDS: Juven (unflavored) Packet 1 PACKET PO (09:25)
[2022-11-12] MEDS: Pantoprazole Sodium 40 MG Tablet PO (09:25)
[2022-11-12] MEDS: Ibuprofen 200 MG Tablet 400 MG PO (09:25)
[2022-11-12] MEDS: Calcium Carbonate 500 MG Tablet PO (09:26)
[2022-11-12] MEDS: Atenolol 50 MG Tablet PO (09:26)
[2022-11-12] MEDS: Potassium Chloride Oral Tablet 20 MEQ PO (09:26)
[2022-11-12] MEDS: Bumetanide 2 MG Tablet PO (09:26)
[2022-11-12] MEDS: Calcitonin-Salmon 1 SPRAY SPRAY NARES (09:27)
[2022-11-12] MEDS: Menthol/Lanolin/Calamine/Znox 113 GM Tube 1 APPLIC TOPICAL (09:36)
--- NOTE | 2022-11-12 09:57 | PCM.TXEXTCAR ---
Diet Diet Order/Speech Therapy: 11/10/22 09:38 LOW SALT Diet: Regular - General Food consistency:: Regular Liquid Consistency:: Regular/Thin Is pt able to select menu?: Yes Routine Orders/Code Status Enema Type: Fleetz Enema Frequency: Daily PRN Suppository Type: Dulcolax 10mg Suppository Frequency: Daily PRN O2 Liters per Minute: 1-2 O2 Frequency: PRN Keep PO Greater than or Equal to (%): 90 Routine Lab Work: CBC (11/19/22), BMP (11/19/22) and - ( iron + iron binding capacity and ferritin in the AM. ) Code Status: Full Code Wound(s) Rt Distal Thigh: Wound Type: ulceration (Much improved after a course of antibiotics. Possible Pyoderma Gangrenosum.) Dressing Change: no dressing needed unless draining Left Diamond: Wound Type: Ulceration Left Calf: Wound Type: Ulceration rt ankle: Wound Type: Surgical Incision Dressing Change: Dry Sterile Dressing (does not have to be sterile) Therapies Weight Bearing: Non weight bearing (2 nurses can stand and pivot but, she is only to ambulate with PT. ) Extremity Affected:: Bilateral Lower Physical Therapy: Eval and Treat Occupational Therapy: Eval and Treat Speech Therapy: Eval and Treat Problem/Diagnosis (1) Debility: Status: Acute Code(s): R53.81 - Other malaise Comment: Due to a fall with bimalleolar fx of the R distal tib/fib (2) Bimalleolar avulsion fracture of right ankle: Status: Acute Code(s): S82.841A - Displaced bimalleolar fracture of right lower leg, initial encounter for closed fracture (3) Multiple sclerosis: Status: Acute Code(s): G35 - Multiple sclerosis Comment: SPASMS - USES WALKER (4) History of open reduction and internal fixation (ORIF) procedure: Status: Acute Code(s): Z98.890 - Other specified postprocedural states Comment: By Dr. 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 Deferred at this time because the tx would be steroids and we can not use steroids at this time because they will delay healing. (6) Acute blood loss anemia: Status: Acute Code(s): D62 - Acute posthemorrhagic anemia (7) Peripheral neuropathy: Status: Chronic (8) Foot drop, left: Status: Acute Code(s): M21.372 - Foot drop, left foot Comment: Left leg has always been her weak leg and now she is NWB on the RLE. No ambulation except when with PT. (9) Osteopenia: Status: Acute Code(s): M85.80 - Other specified disorders of bone density and structure, unspecified site (10) Hypovolemia dehydration: Status: Acute Code(s): E86.1 - Hypovolemia (11) Acid reflux: Status: Acute Code(s): K21.9 - Gastro-esophageal reflux disease without esophagitis (12) HTN (hypertension): Status: Chronic Code(s): I10 - Essential (primary) hypertension Plan Transfer to TCU today for continued therapy. Allergies/Procedures Done in Hospital Allergies adhesive Adverse Reaction (Verified 10/24/22 22:15) RED amlodipine besylate [From Lotrel] Adverse Reaction (Verified 10/24/22 22:15) Nausea benazepril HCl [From Lotrel] Adverse Reaction (Verified 10/24/22 22:15) Nausea codeine Adverse Reaction (Verified 10/24/22 22:15) Nausea latex Adverse Reaction (Verified 10/24/22 22:15) RED Penicillins Adverse Reaction (Verified 10/24/22 22:15) Nausea Procedures: - (ORIF R ankle fx on 10/25/[address] Umaña. ) Type of Care/Length of Stay Estimated LOS: Convalescent Care Less Than 30 days Type of Care Needed: Skilled Rehab Potential: Good Prognosis: Good Additional Orders/Day of Discharge Additional Orders: Pt is able to stand and pivot with TWO nurses but, she is not to ambulate with anyone except the PT until further notice. H&P will serve as current which was dated: 10/29/22 Day of Discharge: 11/12/22 Dietary and Speech Recommendations Dietitian Recommendations/Changes: Continue Regular diet order to promote adequate energy and protein intake. Continue Uriel BID to support wound healing. LOW salt. Follow Up Care Please follow up with your Primary Care Physician in: Following DC from TCU Please Follow Up With: Juan Manuel Umaña DPM When: Will see weekly while in TCU Discharge Plan Admission Admit Date/Time: 10/28/22 14:59 Primary Reason for Your Visit: Physical debility due to R ankle fx with ORIF and gen. weakness due to MS Attending Provider: Sosa Alcala Primary Care Provider: Walt La Instructions Additional Instructions / Restrictions: 1. She should be on Artificial saliva 15 ml 5 X's a day PRN. 2. NO ambulating except with PT until further notice. She can stand and pivot if 2 nurses or nurse and aid are available to assist. 3. Hold Bumex 11/13, 11/14 and restart once daily on 11/15/22. Discharge Orders/Prescriptions Prescriptions: New bumetanide 2 mg Tablet 2 mg PO DAILY Qty: 1 0RF rizatriptan 10 mg Tablet 10 mg PO PRN PRN (Reason: MIGRAINE SYMPTOMS) Qty: 1 0RF sennosides-docusate sodium [Stool Softener-Stimulant Laxat] 8.6-50 mg Tablet 2 tab PO BID Qty: 1 0RF potassium chloride [Klor-Con M20] 20 mEq Tablet,Er Particles/Crystals 20 meq PO BIDCM Qty: 1 0RF magnesium hydroxide 400 mg/5 mL Suspension 30 ml PO .PRN X 1 PRN (Reason: Constipation) Qty: 1 0RF calcitonin (salmon) 200 unit/actuation [place],Non-Aerosol 1 spray NARES DAILY Qty: 1 0RF bisacodyl 10 mg Suppository 10 mg PA .PRN X 1 PRN (Reason: Constipation) Qty: 1 0RF calcium carbonate 200 mg calcium (500 mg) Tablet,Chewable 500 mg PO BIDCM Qty: 1 0RF mupirocin 2 % Ointment 1 applic topical 0600,0 Qty: 1 0RF Protocol: *Topical Application Instructions APPLICATION INSTRUCTIONS: Please apply to the wounds on the right lateral upper thigh twice daily. nystatin [Nyamyc] 100,000 unit/gram Powder 1 applic topical 0600,2200 Qty: 1 0RF Protocol: *Topical Application Instructions APPLICATION INSTRUCTIONS: groin and abdomen folds menthol-zinc oxide [Calmoseptine] 0.44-20.6 % Ointment 1 applic topical BID Qty: 1 0RF Protocol: *Topical Application Instructions APPLICATION INSTRUCTIONS: buttocks Uriel (with collagen) 7-7-1.5 gram Powder In Packet 1 packet PO BIDCM Qty: 1 0RF Continued baclofen 20 MG tablet 30 mg PO Q8 cyanocobalamin (vitamin B-12) 1,000 MCG/ML solution 100 mcg IM Q30D ibuprofen 200 MG tablet 400 mg PO DAILY amitriptyline 100 MG tablet 100 mg PO QHS atenolol 50 MG tablet 75 mg PO QHS atenolol 50 MG tablet 50 mg PO DAILY cholecalciferol (vitamin D3) 50,000 UNIT capsule 50,000 unit PO TUTH tramadol 50 MG tablet 50 mg PO Q6H PRN PRN (Reason: Pain 1-10) amantadine HCl 100 MG capsule 100 mg PO BID pantoprazole 40 mg tablet,delayed release (DR/EC) 40 mg PO DAILY clonazepam [Klonopin] 0.5 mg Tablet 0.5 mg PO QHS PRN (Reason: Spasms) enoxaparin [Lovenox] 40 mg/0.4 mL syringe 40 mg subcut DAILY@0600 Discontinued sumatriptan succinate [Imitrex] 50 mg tablet 50 mg PO ONCE PRN (Reason: migraine headache) bumetanide 2 MG tablet 2 mg PO BID No Action potassium chloride 20 MEQ tablet,ER particles/crystals 20 meq PO DAILY Referrals / Follow Up: Dr. Townsend [Other] - 11/17/22 2:20 pm Juan Manuel Umaña DPM [Med Staff - Active Staff] - Walt La DO [Primary Care Provider] - Disposition Disposition (needs filled in before D/C Order can be placed): [facility] (9) Osteopenia Qualifiers: Osteopenia location: multiple sites Qualified Code(s): M85.89 - Other specified disorders of bone density and structure, multiple sites (11) Acid reflux Qualifiers: Esophagitis presence: without esophagitis Qualified Code(s): K21.9 - Gastro-esophageal reflux disease without esophagitis (12) HTN (hypertension) Qualifiers: Hypertension type: primary hypertension Qualified Code(s): I10 - Essential (primary) hypertension
--- NOTE | 2022-11-12 11:11 | PCM.DC.SUM ---
Providers Date of Admission: 10/28/22 Date of Discharge: 11/12/22 Primary Care Physician: Dr. Walt La, DO Dr. 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 Code(s): L88 - Pyoderma gangrenosum (6) Acute blood loss anemia: Status: Acute Code(s): D62 - Acute posthemorrhagic anemia (7) Peripheral neuropathy: Status: Chronic (8) Foot drop, left: Status: Acute Code(s): M21.372 - Foot drop, left foot (9) Osteopenia: Status: Acute Code(s): M85.80 - Other specified disorders of bone density and structure, unspecified site Qualifiers: Osteopenia location: multiple sites Qualified Code(s): M85.89 - Other specified disorders of bone density and structure, multiple sites (10) Hypovolemia dehydration: Status: Acute Code(s): E86.1 - Hypovolemia (11) Acid reflux: Status: Acute Code(s): K21.9 - Gastro-esophageal reflux disease without esophagitis Qualifiers: Esophagitis presence: without esophagitis Qualified Code(s): K21.9 - Gastro-esophageal reflux disease without esophagitis (12) HTN (hypertension): Status: Chronic Code(s): I10 - Essential (primary) hypertension Qualifiers: Hypertension type: primary hypertension Qualified Code(s): I10 - Essential (primary) hypertension Plan Transfer to TCU today for continued therapy. Medications at Discharge Home Medications amitriptyline 100 mg tablet 100 mg PO QHS DEPRESSION 08/04/14 atenolol 50 mg tablet 50 mg PO DAILY BLOOD PRESSURE 08/04/14 atenolol 50 mg tablet 75 mg PO QHS BLOOD PRESSURE 08/04/14 baclofen 20 mg tablet 30 mg PO Q8 MS 08/04/14 cholecalciferol (vitamin D3) 1,250 mcg (50,000 unit) capsule 50,000 unit PO TUTH Supplement 08/04/14 cyanocobalamin (vitamin B-12) 1,000 mcg/mL injection solution 100 mcg IM Q30D SUPPLEMENT 08/04/14 ibuprofen 200 mg tablet 400 mg PO DAILY PAIN 08/04/14 tramadol 50 mg tablet 50 mg PO Q6H PRN PRN Pain 1-10 09/03/18 amantadine HCl 100 mg capsule 100 mg PO BID SPASMS 09/04/18 clonazepam 0.5 mg tablet (Klonopin) 0.5 mg PO QHS PRN Spasms 10/25/22 pantoprazole 40 mg tablet,delayed release 40 mg PO DAILY STOMACH 10/25/22 potassium chloride 20 mEq tablet,extended release(part/cryst) 20 meq PO DAILY SUPPLEMENT 10/25/22 enoxaparin 40 mg/0.4 mL subcutaneous syringe (Lovenox) 40 mg subcut DAILY@0600 Check with primary doctor 10/28/22 arginine 7 gram-glutam 7 gram-CaHMB 1.5 [id number] oral pwd pkt (Uriel (with collagen)) 1 packet PO BIDCM #1 ea 11/12/22 bisacodyl 10 mg rectal suppository 10 mg GA .PRN X 1 PRN Constipation #1 ea 11/12/22 bumetanide 2 mg tablet 2 mg PO DAILY #1 TAB 11/12/22 calcitonin (salmon) 200 unit/actuation nasal spray 1 spray NARES DAILY #1 mL 11/12/22 calcium carbonate 200 mg calcium (500 mg) chewable tablet 500 mg (2.5 x 200 mg calcium (500 mg)) PO BIDCM #1 TAB 11/12/22 magnesium hydroxide 400 mg/5 mL oral suspension 30 ml PO .PRN X 1 PRN Constipation #1 mL 11/12/22 menthol 0.44 %-zinc oxide 20.6 % topical ointment (Calmoseptine) 1 applic topical BID #1 g 11/12/22 mupirocin 2 % topical ointment 1 applic topical 0600,2200 #1 g 11/12/22 nystatin 100,000 unit/gram topical powder (Nyamyc) 1 applic topical 0600,2200 #1 g 11/12/22 potassium chloride 20 mEq tablet,extended release(part/cryst) (Klor-Con M) 20 meq PO BIDCM #1 TAB 11/12/22 rizatriptan 10 mg tablet 10 mg PO PRN PRN MIGRAINE SYMPTOMS #1 TAB 11/12/22 sennosides 8.6 mg-docusate sodium 50 mg tablet (Stool Softener-Stimulant Laxative) 2 tab PO BID #1 TAB 11/12/22 Hospital Course Operations - (ORIF right ankle fracture on 10/25/[address] Umaña) Procedures None Summary of Care Provided Minutes Spent on Discharge: 45 Hospital Course: MARIA LUISA KITCHEN, is a 66 YO F with a PMH of MS, obesity, HTN, tobacco dependence in remission, GERD, migraines, osteopenia, mild left atrial enlargement, mild MR, internal hemorrhoids and peripheral neuropathy who presented to the ED at [facility] early on 10/25/22 stating she had 3 falls that day and she was not able to ambulate/bear wt after the last fall. XRAY showed partially displaced bimalleolar right ankle fracture with mild ankle joint space widening/instability. She was admitted to the hospitalist service and podiatry was consulted. She was taken to surgery on 10/25/22 for open reduction internal fixation by Dr. Umaña. Post operatively she was seen by PT/OT and they recommended acute inpt rehab at [facility]. she was transferred to the acute inpt rehab unit at [facility] on 10/28/22 for 3 hours of therapy daily to restore function at or near her level prior to the fracture. When Maria Luisa came to rehab she had several ulcerations on the lateral side of the R proximal thigh. She told me that she frequently gets these ulcerations. They have the appearance of pyoderma gangrenosum. One of the ulcerations had a purulent discharge and this was cultured and grew a methicillin sensitive Staph aureus. She was placed on doxycycline 100 mg p.o. twice daily for 1 week and Bactroban cream twice daily to all the ulcerations. The infection resolved and although the ulcerations are still present they are dried up and no longer enlarging. She should have a biopsy of an ulceration to include the rim and the normal area adjacent to the rim to confirm the diagnosis. We did not do a biopsy in the hospital because the treatment for pyoderma gangrenosum is high-dose steroids and this would impair healing of the incision and the bone from the right ankle fracture. Maria Luisa has been seen by a unit aid in the past and I suggested she follow-up with dermatology for a biopsy when a new lesion appears. Maria Luisa was quite impaired at presentation because she was NWB on the RLE and her left leg is always weak secondary to MS. She was limited to a WC. She was able to transfer to the toilet and on and off the bed with a sliding board, she did not have a sliding board at home. At the time of transfer to TCU she is quite proficient at using the sliding board, mala using a high low bed. Her left leg is getting stronger and she is able to stand and pivot at the time of transfer. She has stood in the parallel bars and been able to maintain partial weight bearing on the RLE. At the time of transfer she is allowed to stand and pivot if there are 2 nurse's/NA's to assist but, she is NOT to ambulate with anyone except PT until further notice. We have asked her dtr to bring Maria Luisa's scooter to the hospital so we can start doing transfers from the scooter onto various surfaces. Maria Luisa is known to have osteopenia and her last BMD test was 2 years ago. She has been taking vitamin D at home but, she has not been taking calcium and she is not on a medication to stimulate bone formation. She told me that she has tried a bisphosphonate in the past and did not tolerate it. I did not want to use Evista due to the increase risk of VTE. She was started on Miacalcin and is tolerating this well. I would recommend repeating the BMD following DC home. Maria Luisa was discharged to TCU on 11/12/22 for strengthening in order that she can go home and safely remain partial wt bearing on the RLE until it heals. Dr. Umaña removed the daphney on 11/10/22 and the incision is intact with no estee-incisional erythema, no dehiscence and no discharge. She was placed in a boot on 11/10/2022 and is 25 to 50% weightbearing on the right lower extremity with the restrictions listed above. She will follow up with Dr. Umaña following DC from TCU and with Dr. La her PCP. Physical Exam Const alert, oriented x3 and no apparent distress General Appearance: cooperative, well kempt and well developed HEENT normocephalic, head/scalp atraumatic, hearing grossly normal bilaterally and moist oral mucous membranes Eyes PERRL, EOMs intact bilaterally, conjunctivae normal and no scleral icterus Neck supple, No nodes and no carotid bruits General: trachea midline Resp normal respiratory effort, normal air movement, no use of accessory muscles and clear to auscultation bilaterally Resp Narrative: Not tachypneic. Effort and Inspection: able to speak in complete sentences Cardio regular rate, regular rhythm, no murmurs, no rub and no gallops Cardio Narrative: No ectopy GI normal to inspection, nondistended, normoactive bowel sounds, soft to palpation, non-tender, non-distended and no masses GI Narrative: No guarding with palpation Extremity no calf tenderness Extremity Narrative: intact sensation to the R foot. The toes are warm. General Extremity: Negative for edema Skin General Skin Exam: no breakdown Rashes: no rashes Wound Narrative: Ulcerations on the R lateral thigh are drying up and there is no longer any DC/slough over the wound the culture was taken from. There is some redness around the wounds but, no increased warmth to touch. Neuro oriented x3 and CN's II-XII intact bilaterally Neuro Narrative: Decreased sensation in both distal LE's. The left leg is very weak chronically but, strength has improved with therapy. She still has foot drop on the left. She has good strength in the arms. No facial asymmetry. No visual loss. Can not flex the Left knee. She is able to move abduct and adduct the left leg on the bed. Coordination / Balance: [id number] test normal Psych mental status grossly normal, thought process normal, cooperative, affect normal, denies homicidal ideation and denies suicidal ideation Appearance: grossly normal, appropriate and well kempt Attitude: calm Weight / BMI Weight Weight: 222 lb 7.143 oz Body Mass Index (BMI) 38.2 ABG / Lab / Microbiology Data 11/12/22 05:52 11/12/22 05:52 Laboratory: Laboratory Results - last 24 hr 11/12/22 05:52: Hgb 10.5 L, Hct 32.4 L, Sodium 142, Potassium 3.9, Chloride 111 H, Carbon Dioxide 28.0, Anion Gap 3 L, BUN 34 H, Creatinine 0.91, Estim Creat Clear Calc 53.22, Est GFR (MDRD) Af Amer 79, Est GFR (MDRD) Non-Af 65, BUN/Creatinine Ratio 37.2 H, Glucose 83, Calcium 8.8 Microbiology: Microbiology 11/01/22 14:00 Urine, Catheterized Urine Culture - Final Strep salivarius sp salivarius Streptococcus mitis/ oralis 10/29/22 17:50 Wound - Leg, Right Gram Stain - Final 10/29/22 17:50 Wound - Leg, Right Wound Culture - Final Staphylococcus aureus D/C Instructions Please Follow Up With: Juan Manuel Umaña DPM Meaningful Use Info Meaningful Use Diagnoses (Choose all that apply): None applicable Discharge Plan Admission Admit Date/Time: 10/28/22 14:59 Primary Reason for Your Visit: Physical debility due to R ankle fx with ORIF and gen. weakness due to MS Attending Provider: Sosa Alcala Primary Care Provider: Walt La Instructions Additional Instructions / Restrictions: 1. She should be on Artificial saliva 15 ml 5 X's a day PRN. 2. NO ambulating except with PT until further notice. She can stand and pivot if 2 nurses or nurse and aid are available to assist. 3. Hold Bumex 11/13, 11/14 and restart once daily on 11/15/22. Discharge Orders/Prescriptions Prescriptions: New bumetanide 2 mg Tablet 2 mg PO DAILY Qty: 1 0RF rizatriptan 10 mg Tablet 10 mg PO PRN PRN (Reason: MIGRAINE SYMPTOMS) Qty: 1 0RF sennosides-docusate sodium [Stool Softener-Stimulant Laxat] 8.6-50 mg Tablet 2 tab PO BID Qty: 1 0RF potassium chloride [Klor-Con M20] 20 mEq Tablet,Er Particles/Crystals 20 meq PO BIDCM Qty: 1 0RF magnesium hydroxide 400 mg/5 mL Suspension 30 ml PO .PRN X 1 PRN (Reason: Constipation) Qty: 1 0RF calcitonin (salmon) 200 unit/actuation [place],Non-Aerosol 1 spray NARES DAILY Qty: 1 0RF bisacodyl 10 mg Suppository 10 mg GA .PRN X 1 PRN (Reason: Constipation) Qty: 1 0RF calcium carbonate 200 mg calcium (500 mg) Tablet,Chewable 500 mg PO BIDCM Qty: 1 0RF mupirocin 2 % Ointment 1 applic topical 0600,2200 Qty: 1 0RF Protocol: *Topical Application Instructions APPLICATION INSTRUCTIONS: Please apply to the wounds on the right lateral upper thigh twice daily. nystatin [Nyamyc] 100,000 unit/gram Powder 1 applic topical 0600,2200 Qty: 1 0RF Protocol: *Topical Application Instructions APPLICATION INSTRUCTIONS: groin and abdomen folds menthol-zinc oxide [Calmoseptine] 0.44-20.6 % Ointment 1 applic topical BID Qty: 1 0RF Protocol: *Topical Application Instructions APPLICATION INSTRUCTIONS: buttocks Uriel (with collagen) 7-7-1.5 gram Powder In Packet 1 packet PO BIDCM Qty: 1 0RF Continued baclofen 20 MG tablet 30 mg PO Q8 cyanocobalamin (vitamin B-12) 1,000 MCG/ML solution 100 mcg IM Q30D ibuprofen 200 MG tablet 400 mg PO DAILY amitriptyline 100 MG tablet 100 mg PO QHS atenolol 50 MG tablet 75 mg PO QHS atenolol 50 MG tablet 50 mg PO DAILY cholecalciferol (vitamin D3) 50,000 UNIT capsule 50,000 unit PO TUTH tramadol 50 MG tablet 50 mg PO Q6H PRN PRN (Reason: Pain 1-10) amantadine HCl 100 MG capsule 100 mg PO BID pantoprazole 40 mg tablet,delayed release (DR/EC) 40 mg PO DAILY clonazepam [Klonopin] 0.5 mg Tablet 0.5 mg PO QHS PRN (Reason: Spasms) enoxaparin [Lovenox] 40 mg/0.4 mL syringe 40 mg subcut DAILY@0600 Discontinued sumatriptan succinate [Imitrex] 50 mg tablet 50 mg PO ONCE PRN (Reason: migraine headache) bumetanide 2 MG tablet 2 mg PO BID No Action potassium chloride 20 MEQ tablet,ER particles/crystals 20 meq PO DAILY Referrals / Follow Up: Dr. Townsend [Other] - 11/17/22 2:20 pm Juan Manuel Umaña DPM [Med Staff - Active Staff] - Walt La DO [Primary Care Provider] - Disposition Disposition (needs filled in before D/C Order can be placed): [facility] Facility Charges/Coding Visit Charges Inpatient E&M: 20738 Disch Hosp >30min
== END 2022-11-12 15:27 | disposition skilled nursing facility (03) | DRG 560 ==
PROVIDERS: Admitting Provider Internal Medicine; PCP Family Medicine; Visit Provider Internal Medicine
DX: S82.841D Displaced bimalleolar fracture of right lower leg, subsequent encounter for closed fracture with routine healing (principal); D62 Acute posthemorrhagic anemia; L97.119 Non-pressure chronic ulcer of right thigh with unspecified severity; G35 Multiple sclerosis; N18.31 Chronic kidney disease, stage 3a; G62.9 Polyneuropathy, unspecified; M14.672 Charcot's joint, left ankle and foot; K21.9 Gastro-esophageal reflux disease without esophagitis; G43.909 Migraine, unspecified, not intractable, without status migrainosus; M19.90 Unspecified osteoarthritis, unspecified site; I12.9 Hypertensive chronic kidney disease with stage 1 through stage 4 chronic kidney disease, or unspecified chronic kidney disease; W19.XXXD Unspecified fall, subsequent encounter; M85.80 Other specified disorders of bone density and structure, unspecified site; Z79.01 Long term (current) use of anticoagulants; Z87.891 Personal history of nicotine dependence; Z86.16 Personal history of COVID-19; Z79.899 Other long term (current) drug therapy; E66.9 Obesity, unspecified; Z68.37 Body mass index [BMI] 37.0-37.9, adult
CPT/HCPCS: 36415; 73600; 73620; 80048; 80053; 81001; 81240; 81241; 83036; 83735; 84100; 85014; 85018; 85025; 85300; 85302; 85303; 85652; 86140; 86146; 86147; 87070; 87077; 87086; 87088; 87186; 87205; 92507; 92523; 92526; 92610; 97110; 97116; 97129; 97130; 97150; 97162; 97166; 97530; 97535; 97542; 97802; 97803; A4216

== ENCOUNTER 2022-11-12 15:41 | Inpatient (IN) | payer MEDICARE, OTHER, SELFPAY ==
[2022-11-12 16:10] VITALS: BMI 38.6
[2022-11-12 16:15] VITALS: BP 127/45; PULSE 61; RESP 17; TEMP 36.1; O2SAT 97
[2022-11-12 16:32] VITALS: BMI 38.6
[2022-11-12 18:23] VITALS: BMI 38.7
[2022-11-12] MEDS: Amantadine 100 MG Capsule PO (18:47)
[2022-11-12 20:00] VITALS: PULSE 62; RESP 16; O2SAT 99
[2022-11-12] MEDS: Mupirocin Ointment 22gm Tube 1 APPLIC TOPICAL (21:00)
[2022-11-12] MEDS: Amitriptyline 100 MG Tablet PO (21:01)
[2022-11-12] MEDS: Baclofen 10 MG Tablet 30 MG PO (21:01)
[2022-11-12] MEDS: Atenolol 50 MG Tablet 75 MG PO (21:02)
[2022-11-12] MEDS: Menthol/Lanolin/Calamine/Znox 113 GM Tube 1 APPLIC TOPICAL (21:03)
[2022-11-12] MEDS: Nystatin Powder 15gm Bottle 1 APPLIC TOPICAL (21:20)
[2022-11-12 21:21] VITALS: BP 147/59; PULSE 62; RESP 16; O2SAT 99
[2022-11-12] MEDS: clonazePAM 0.5 MG Tablet PO (23:18)
[2022-11-13] MEDS: Enoxaparin 40 MG/0.4 ML Syringe SC (06:55)
[2022-11-13] MEDS: Baclofen 10 MG Tablet 30 MG PO (06:55)
[2022-11-13] MEDS: Pantoprazole Sodium 40 MG Tablet PO (06:56)
[2022-11-13] MEDS: Ibuprofen 400 MG Tablet PO (06:56)
[2022-11-13] MEDS: Amantadine 100 MG Capsule PO ×2 (06:56→22:09)
[2022-11-13 06:57] LABS: Absolute Lymphocyte Count 0.72 X10^3/uL (0.83-4.51); Absolute Neutrophil Count 2.5 X10^3/uL (2.0-7.7); Basophil# 0.05 X10^3/uL; Basophil% 1.3 % (0-1); Eosinophil# 0.13 X10^3/uL; Eosinophils% 3.3 % (0-5); Hematocrit 35.9 % (37-47); Hemoglobin 11.4 g/dL (12.0-15.0); Lymphocyte # 0.72 X10^3/ul (0.83-4.51); Lymphocyte % 18.5 % (19-41); Mean Corp Hgb Conc 31.8 g/dL (32-36); Mean Corpuscular Hgb 31.9 pg (27.0-32.0); Mean Corpuscular Volume 100.6 fL (81-99); Mean Platelet Vol. 11.7 fl (6.2-12.0); Monocyte% 12.8 % (0-10); NRBC Flagged by Analyzer 0 % (0-5); Neutrophil # 2.48 X10^3/uL (2.7-7.7); Neutrophil % 63.6 % (47-70); POSITIVE MORPHOLOGY YES; Platelet Count 146 K/mm3 (150-450); RBC Distribution Width CV 13.6 % (11.6-14.6); RBC Distribution Width SD 49.6 fl (35.1-43.9); Red Blood Count 3.57 M/mm3 (4.2-5.4); White Blood Count 3.9 K/mm3 (4.4-11.0)
[2022-11-13] MEDS: Nystatin Powder 15gm Bottle 1 APPLIC TOPICAL ×2 (06:57→22:14)
[2022-11-13] MEDS: Menthol/Lanolin/Calamine/Znox 113 GM Tube 1 APPLIC TOPICAL (06:58)
[2022-11-13] MEDS: Calcitonin-Salmon 1 SPRAY SPRAY NARES (06:58)
[2022-11-13] MEDS: Mupirocin Ointment 22gm Tube 1 APPLIC TOPICAL ×2 (06:58→22:09)
[2022-11-13] MEDS: Atenolol 50 MG Tablet PO (06:59)
[2022-11-13 07:00] VITALS: BP 147/64; PULSE 60; RESP 14
[2022-11-13 07:06] LABS: Differential Indicated SCAN CRITERIA MET
[2022-11-13 07:17] LABS: Anion Gap 8 (5-15); BUN 29 mg/dL (7-18); BUN/Creat Ratio 29.8 RATIO (10-20); Calcium,Total 8.9 mg/dL (8.5-10.1); Chloride 108 mmol/L (98-107); Creatinine, Serum 0.97 mg/dL (0.55-1.02); EST Glomerular Filtration Rate 61 mL/min (>60); Est Glom Filt Rate - Afr Amer 74 mL/min (>60); Estimated Creatinine Clearance 49.93 ml/min; Glucose 95 mg/dL (74-106); Potassium 3.7 mmol/L (3.5-5.1); Sodium Level 142 mmol/L (136-145)
[2022-11-13] MEDS: Juven (unflavored) Packet 1 PACKET PO ×2 (08:57→22:04)
[2022-11-13] MEDS: Potassium Chloride Oral Tablet 20 MEQ PO ×2 (08:57→22:08)
[2022-11-13] MEDS: Calcium Carbonate 500 MG Tablet PO (08:57)
[2022-11-13 09:18] LABS: Differential Comment SCANNED; Reactive Lymphocyte 1+
[2022-11-13] MEDS: Tuberculin,Purif.prot.deriv. 50 TU/ML Vial 0.1 ML ID (09:46)
--- NOTE | 2022-11-13 11:21 | NURSING ---
Pt left with family for TAMY.
--- NOTE | 2022-11-13 13:41 | PCM.HP.STD ---
HPI - General General Date of Admission: 11/12/22 Date of Service: 11/13/22 Chief Complaint: Physical debility secondary to right ankle bimalleolar fracture in a patient with MS and chronic weakness of the left lower extremity. HPI Narrative MEGGAN KITCHEN, is a 66 YO F with a PMH of MS, obesity, HTN, tobacco dependence in remission, GERD, migraines, osteopenia, mild left atrial enlargement, mild MR, internal hemorrhoids and peripheral neuropathy who presented to the ED at [facility] early on 10/25/22 stating she had 3 falls that day and she was not able to ambulate/bear wt after the last fall. XRAY showed partially displaced bimalleolar right ankle fracture with mild ankle joint space widening/instability. She was admitted to the hospitalist service and podiatry was consulted. She was taken to surgery on 10/25/22 for open reduction internal fixation by Dr. Umaña. Post operatively she was seen by PT/OT and they recommended acute inpt rehab at [facility]. She was transferred to the acute inpt rehab unit at [facility] on 10/28/22 for 3 hours of therapy daily to restore function at or near her level prior to the fracture. She did well on rehab but, she does not have the strength in the Left leg to be able to maintain partial weight bearing on the RLE. On 11/10/22 Dr. Umaña removed her daphney and placed her in a boot. She was released to be partial wt bearing on the RLE (25-50%). PT is allowing nursing to stand and pivot but, only if 2 assist. She will ambulate only with PT until they release her to ambulate with nursing. She is going to have her dtr bring in her scooter so she can practise slide board transfers with the device she will be using at home. She was released from rehab on 11/12/22 and admitted to TCU for additional therapy to further strengthen prior to going home. [facility] Medical History (Updated 11/13/22 @ 14:[address] Sosa Alcala DO) Anxiety Bimalleolar fracture of right ankle COVID-19 Difficulty swallowing Exacerbation of multiple sclerosis Former smoker Gastric reflux History of gastric polyp History of GI bleed History of migraine headaches History of stress test Hypertension Multiple sclerosis Osteopenia Peripheral neuropathy Shortness of breath on exertion Home Medications amitriptyline 100 mg tablet 100 mg PO QHS DEPRESSION 08/04/14 [History Last Taken 11/11/22] atenolol 50 mg tablet 50 mg PO DAILY BLOOD PRESSURE 08/04/14 [History Last Taken 11/12/22] atenolol 50 mg tablet 75 mg PO QHS BLOOD PRESSURE 08/04/14 [History Last Taken 11/11/22] baclofen 20 mg tablet 30 mg PO Q8 MS 08/04/14 [History Last Taken 11/12/22] cholecalciferol (vitamin D3) 1,250 mcg (50,000 unit) capsule 50,000 unit PO TUTH Supplement 08/04/14 [History Last Taken 11/11/22] cyanocobalamin (vitamin B-12) 1,000 mcg/mL injection solution 100 mcg IM Q30D SUPPLEMENT 08/04/14 [History Last Taken 10/18/22 10:00] ibuprofen 200 mg tablet 400 mg PO DAILY PAIN 08/04/14 [History Last Taken 11/12/22] tramadol 50 mg tablet 50 mg PO Q6H PRN PRN Pain 1-10 09/03/18 [History Last Taken 11/11/22] amantadine HCl 100 mg capsule 100 mg PO BID SPASMS 09/04/18 [History Last Taken 11/12/22] clonazepam 0.5 mg tablet (Klonopin) 0.5 mg PO QHS PRN Spasms 10/25/22 [History Last Taken 11/11/22] pantoprazole 40 mg tablet,delayed release 40 mg PO DAILY STOMACH 10/25/22 [History Last Taken 11/12/22] enoxaparin 40 mg/0.4 mL subcutaneous syringe (Lovenox) 40 mg subcut DAILY@0600 Check with primary doctor 10/28/22 [History Last Taken 11/12/22] arginine 7 gram-glutam 7 gram-CaHMB 1.5 [id number]-min oral pwd pkt (Uriel (with collagen)) 1 packet PO BIDCM supplement #1 ea 11/12/22 [Rx Last Taken 11/12/22] bisacodyl 10 mg rectal suppository 10 mg KY .PRN X 1 PRN Constipation #1 ea 11/12/22 [Rx Last Taken Unknown] bumetanide 2 mg tablet 2 mg PO DAILY fluid pill #1 TAB 11/12/22 [Rx Last Taken 11/12/22] calcitonin (salmon) 200 unit/actuation nasal spray 1 spray NARES DAILY bone health #1 mL 11/12/22 [Rx Last Taken 11/12/22] calcium carbonate 200 mg calcium (500 mg) chewable tablet 500 mg (2.5 x 200 mg calcium (500 mg)) PO BIDCM supplement #1 TAB 11/12/22 [Rx Last Taken 11/12/22] magnesium hydroxide 400 mg/5 mL oral suspension 30 ml PO .PRN X 1 PRN Constipation #1 mL 11/12/22 [Rx Last Taken Unknown] menthol 0.44 %-zinc oxide 20.6 % topical ointment (Calmoseptine) 1 applic topical BID skin protectant #1 g 11/12/22 [Rx Last Taken 11/12/22] mupirocin 2 % topical ointment 1 applic topical 0600,2200 antibiotic 11/12/22 [History Last Taken Unknown] nystatin 100,000 unit/gram topical powder (Nyamyc) 1 applic topical 0600,2200 moisture/yeast #1 g 11/12/22 [Rx Last Taken Unknown] potassium chloride 20 mEq tablet,extended release(part/cryst) (Klor-Con M) 20 meq PO BIDCM supplement #1 TAB 11/12/22 [Rx Last Taken 11/12/22] rizatriptan 10 mg tablet 10 mg PO PRN PRN MIGRAINE SYMPTOMS #1 TAB 11/12/22 [Rx Last Taken Unknown] sennosides 8.6 mg-docusate sodium 50 mg tablet (Stool Softener-Stimulant Laxative) 2 tab PO BID stool softener #1 TAB 11/12/22 [Rx Last Taken Unknown] Allergy/AdvReac Type Severity Reaction Status Date / Time adhesive AdvReac RED Verified 10/24/22 22:15 amlodipine besylate AdvReac Nausea Verified 10/24/22 22:15 [From Lotrel] benazepril HCl [From Lotrel] AdvReac Nausea Verified 10/24/22 22:15 codeine AdvReac Nausea Verified 10/24/22 22:15 latex AdvReac RED Verified 10/24/22 22:15 Penicillins AdvReac Nausea Verified 10/24/22 22:15 Family History Brother Diabetes Heart disease Kidney disease Cancer Mother Diabetes Hypertension Thyroid disorder VTE (venous thromboembolism) Son VTE (venous thromboembolism) Surgical History (Updated 11/13/22 @ 13:[address] Sosa Alcala DO) History of cataract surgery History of colonoscopy History of hysterectomy History of open reduction and internal fixation (ORIF) procedure History of skin surgery History of surgical procedure on mouth Social History household members: spouse housing: house pets and animals: Yes Smoking Status: Former smoker pack-years: 35 Tobacco: How many years used: 35 how long ago did patient quit smoking: quit smoking in 2008 and started as a teenager. alcohol intake: never substance use type: does not use additional social history: uses ibuprofen daily ROS Constitutional Constitutional: Reports weakness; Denies anorexia, change in weight, chills, fatigue, fever(s) or night sweats Eyes Eyes: Denies blurry vision, change in vision, eye pain or loss of vision ENT HEENT: Denies abnormal hearing, dysphagia, headache(s), hearing loss, nasal congestion or sore throat Cardiovascular Cardiovascular: Reports dyspnea on exertion and edema; Denies chest pain, lightheadedness, orthopnea, palpitations, paroxysmal nocturnal dyspnea or syncope Respiratory/Chest Respiratory/Chest: Reports shortness of breath with exertion; Denies cough, dyspnea, shortness of breath at rest or wheezing Gastrointestinal Gastrointestinal: Reports constipation; Denies abdominal pain, diarrhea, dyspepsia, hematemesis, hematochezia, nausea or vomiting Genitourinary Genitourinary: Denies dysuria, hematuria, nocturia, urinary frequency, urinary hesitancy, urinary incontinence or urinary urgency Musculoskeletal Musculoskeletal: Denies back pain, joint pain, joint swelling or neck pain Neurologic Neurologic: Reports focal weakness, memory loss, sensory deficit and weakness; Denies confusion, disequilibrium, dizziness, headache(s), paresthesias, radicular pain, seizures or tremor(s) Psychiatric Psychiatric: Denies anxiety, depression, homicidal ideation or suicidal ideation Endocrine Endocrinology: Denies change in body appearance, polydipsia or polyuria Hematologic/Lymphatic Hematologic/Lymphatic: Denies easy bleeding, easy bruising or lymphadenopathy Allergic/Immunologic Allergic/Immunologic: Denies rhinitis, eczemia or asthma Vital Signs Vital Signs Vital Signs: 11/12/22 16:15 11/12/22 21:21 11/12/22 20:00 Temperature 97.0 F L Temperature Source Oral Pulse Rate 61 62 62 Pulse Rhythm Regular Pulse Strength Normal (2+) Respiratory Rate 17 16 16 Respiratory Effort Normal Non-Labored Respiratory Depth Normal Respiratory Pattern Normal Blood Pressure 127/45 H 147/59 H Blood Pressure Mean 72 88 Blood Pressure Source Monitor Blood Pressure Position Semi-Fowlers Blood Pressure Location Right Arm Pulse Ox 97 99 99 Oxygen Delivery Method Room Air Room Air 11/13/22 07:00 Temperature Temperature Source Pulse Rate 60 Pulse Rhythm Pulse Strength Respiratory Rate 14 Respiratory Effort Respiratory Depth Respiratory Pattern Blood Pressure 147/64 H Blood Pressure Mean 91 Blood Pressure Source Blood Pressure Position Blood Pressure Location Pulse Ox Oxygen Delivery Method Weight Weight: 225 lb 4.8 oz Body Mass Index (BMI) 38.7 Physical Exam Const alert, oriented x3 and no apparent distress Constitutional Narrative: Making good eye contact, appropriate. Denies pain. General Appearance: cooperative and comfortable HEENT moist oral mucous membranes HEENT Narrative: No evidence of thrush Eyes PERRL, EOMs intact bilaterally, conjunctivae normal and no scleral icterus Eyes Narrative: No visual field cuts. No discharge from the eyes and no mattering of the eyelashes. General Eye: normal appearance of both eyes; Negative for proptosis Neck no lymphadenopathy, supple, no JVD and no carotid bruits Chest inspection of chest normal Chest: symmetrical chest wall rise Resp normal respiratory effort, no use of accessory muscles and clear to auscultation bilaterally Resp Narrative: Not tachypneic and no conversational dyspnea. Effort and Inspection: able to speak in complete sentences Cardio regular rate, regular rhythm, S1 normal heart sound, S2 normal heart sound, no murmurs, no rub and no gallops Cardio Narrative: No ectopy. GI normal to inspection, nondistended, normoactive bowel sounds, non-tender, no masses and no bruits GI Narrative: No guarding with palpation. Extremity normal capillary refill and no calf tenderness Extremity Narrative: Minimal edema of the right ankle. No edema of the left ankle. Skin Skin Narrative: No rashes, no skin breakdown. The ulcerations on the lateral R thigh proximally are dry with small scabs and some have completely resolved. No purulent DC, swelling or increased warmth to touch in the area around the ulcerations. Hair: normal Neuro oriented x3 and CN's II-XII intact bilaterally Neuro Narrative: Decreased sensation in both distal LE's. The left leg is very weak chronically but, strength has improved with therapy. She still has foot drop on the left. She has good strength in the arms. No facial asymmetry. No visual loss. Can not flex the Left knee. She is able to move abduct and adduct the left leg on the bed. No ataxia. Psych affect normal Psych Narrative: Appropriate, making good eye contact. Able to stay on topic and focus. No flight of ideas. Does not appear anxious or depressed. Conversant and relating well to staff. Results Lab / Micro Data 11/13/22 06:47 11/13/22 06:47 Labs: Laboratory Results - last 24 hr 11/13/22 06:47: WBC 3.9 L, RBC 3.57 L, Hgb 11.4 L, Hct 35.9 L, MCV 100.6 H, MCH 31.9, MCHC 31.8 L, RDW Std Deviation 49.6 H, RDW Coeff of Caty 13.6, Plt Count 146 L, MPV 11.7, Immature Gran % (Auto) 0.500, Neut % (Auto) 63.6, Lymph % (Auto) 18.5 L, [place] % (Auto) 12.8 H, Eos % (Auto) 3.3, Baso % (Auto) 1.3 H, Absolute Neuts (auto) 2.5, Absolute Lymphs (auto) 0.72 L, Nucleated RBC % 0, Differential Comment SCANNED, Reactive Lymphocytes 1+, Sodium 142, Potassium 3.7, Chloride 108 H, Carbon Dioxide 26.0, Anion Gap 8, BUN 29 H, Creatinine 0.97, Estim Creat Clear Calc 49.93, Est GFR (MDRD) Af Amer 74, Est GFR (MDRD) Non-Af 61, BUN/Creatinine Ratio 29.8 H, Glucose 95, Calcium 8.9 Assessment & Plan Assessment/Plan (1) Debility: (2) History of open reduction and internal fixation (ORIF) procedure: (3) Bimalleolar avulsion fracture of right ankle: (4) Multiple sclerosis: (5) Osteopenia: QUALIFIERS: Osteopenia location: multiple sites Qualified Code(s): M85.89 - Other specified disorders of bone density and structure, multiple sites (6) Foot drop, left: (7) Ulcerative pyoderma gangrenosum: (8) HTN (hypertension): QUALIFIERS: Hypertension type: primary hypertension Qualified Code(s): I10 - Essential (primary) hypertension (9) Peripheral neuropathy: (10) Thrombocytopenia: (11) Leukopenia: QUALIFIERS: Leukopenia type: lymphocytopenia Qualified Code(s): D72.810 - Lymphocytopenia PLAN: Has +1 reactive lymphocytes in the diff........possible viral infection? (12) Pica: PLAN: Plan PLAN PT for gait stability OT for ADL's ST memory difficulties and dysphagia Analgesics as needed Bowel protocol Fall precautions Assess for Anxiety/Depression GI prophylaxis with pantoprazole DVT prophylaxis with enoxaparin Follow up with Dr. Walt La, Dr. Juan Manuel Umaña and Dr. Townsend following DC from IP Rehab AM lab including CMP, CBC, Mag and Phos - reviewed. Will add iron, iron binding capacity and ferritin Charges/Coding Visit Charges Inpatient E&M: 61339 SNF Subs L2
[2022-11-13 15:41] LABS: Ferritin 48 ng/mL (8-252); Iron 74 ug/dL (50-170); Iron Binding Capacity,Total 345 ug/dL (250-450); PERCENT IRON SATURATION 21.4 % (15.0-55.0)
--- NOTE | 2022-11-13 21:15 | NURSING ---
Returned from [place] w/ daughter, Reports taking a dose of Baclofen at 7pm. HS dose of Baclofen to be held. Notes having two BMs while out on [place].
[2022-11-13] MEDS: Atenolol 50 MG Tablet 75 MG PO (22:10)
[2022-11-13] MEDS: clonazePAM 0.5 MG Tablet PO (22:11)
[2022-11-13] MEDS: Amitriptyline 100 MG Tablet PO (22:12)
[2022-11-13 22:15] VITALS: BP 119/47; PULSE 75
--- NOTE | 2022-11-13 23:22 | PCA ---
When pt came back with family,she put herself to bed and changed her own clothes.
--- NOTE | 2022-11-14 02:55 | NURSING ---
Pt awake and c/o nausea. Diet ryan ce and ice chips given per pt request.
[2022-11-14] MEDS: Mupirocin Ointment 22gm Tube 1 APPLIC TOPICAL ×2 (04:33→22:47)
[2022-11-14] MEDS: Menthol/Lanolin/Calamine/Znox 113 GM Tube 1 APPLIC TOPICAL (04:34)
[2022-11-14] MEDS: Calcitonin-Salmon 1 SPRAY SPRAY NARES (04:36)
[2022-11-14] MEDS: Enoxaparin 40 MG/0.4 ML Syringe SC (04:37)
[2022-11-14] MEDS: traMADol 50 MG Tablet PO (04:37)
[2022-11-14] MEDS: Ibuprofen 400 MG Tablet PO (04:38)
[2022-11-14] MEDS: Amantadine 100 MG Capsule PO ×2 (04:38→18:11)
[2022-11-14] MEDS: Pantoprazole Sodium 40 MG Tablet PO (04:39)
[2022-11-14] MEDS: Baclofen 10 MG Tablet 30 MG PO ×3 (04:39→22:49)
[2022-11-14] MEDS: Atenolol 50 MG Tablet PO (04:40)
[2022-11-14] MEDS: Nystatin Powder 15gm Bottle 1 APPLIC TOPICAL ×2 (04:41→22:48)
[2022-11-14 04:50] VITALS: BP 119/71; PULSE 68
[2022-11-14] MEDS: Juven (unflavored) Packet 1 PACKET PO ×2 (08:49→18:11)
[2022-11-14] MEDS: Calcium Carbonate 500 MG Tablet PO ×2 (08:49→18:11)
[2022-11-14] MEDS: Potassium Chloride Oral Tablet 20 MEQ PO ×2 (08:49→18:11)
[2022-11-14 12:00] VITALS: PULSE 60; O2SAT 92
[2022-11-14 14:33] VITALS: BP 111/48; PULSE 68; RESP 95; TEMP 36.6; O2SAT 96
[2022-11-14] MEDS: Atenolol 50 MG Tablet 75 MG PO (22:47)
[2022-11-14] MEDS: Amitriptyline 100 MG Tablet PO (22:50)
[2022-11-14] MEDS: clonazePAM 0.5 MG Tablet PO (22:55)
[2022-11-15] MEDS: Enoxaparin 40 MG/0.4 ML Syringe SC (06:33)
[2022-11-15] MEDS: Atenolol 50 MG Tablet PO (06:34)
[2022-11-15] MEDS: Ibuprofen 400 MG Tablet PO (06:34)
[2022-11-15] MEDS: Pantoprazole Sodium 40 MG Tablet PO (06:34)
[2022-11-15] MEDS: Baclofen 10 MG Tablet 30 MG PO ×3 (06:34→23:15)
[2022-11-15] MEDS: Calcitonin-Salmon 1 SPRAY SPRAY NARES (06:35)
[2022-11-15] MEDS: Amantadine 100 MG Capsule PO ×2 (06:35→17:02)
[2022-11-15] MEDS: Bumetanide 2 MG Tablet PO (06:36)
[2022-11-15] MEDS: Nystatin Powder 15gm Bottle 1 APPLIC TOPICAL ×2 (06:41→23:18)
[2022-11-15] MEDS: Menthol/Lanolin/Calamine/Znox 113 GM Tube 1 APPLIC TOPICAL (06:41)
[2022-11-15 06:57] VITALS: BP 155/55; PULSE 58
[2022-11-15] MEDS: Mupirocin Ointment 22gm Tube 1 APPLIC TOPICAL ×2 (09:05→23:12)
[2022-11-15] MEDS: Juven (unflavored) Packet 1 PACKET PO ×2 (09:06→17:02)
[2022-11-15] MEDS: Potassium Chloride Oral Tablet 20 MEQ PO ×2 (09:06→17:02)
[2022-11-15] MEDS: Calcium Carbonate 500 MG Tablet PO ×2 (09:06→17:02)
[2022-11-15 10:51] VITALS: BP 112/51; PULSE 61; RESP 17; TEMP 36.2; O2SAT 97
--- NOTE | 2022-11-15 11:33 | NURSING ---
Licensed Electrician Note; Activity Asset: Butch Glass is independent in her choice of daily activities. She will visit w/family and friends, watch tv, read work on word puzzles and uses her smartphone. Maria Luisa welcomes visit from the therapy dog. She prefers to rest in her room at this time and staff will continue to remind her of activities and respect her right to say no
--- NOTE | 2022-11-15 12:57 | NURSING ---
Offered covid vaccine to patient, education about vaccine provided. Patient refuses at this time.
--- NOTE | 2022-11-15 15:19 | CASEMGMT ---
Social Work See attached assessment for completed social work assessment information. Met with patient in room. Introduced self and manager social role. Patient plans to discharge to home with spouse at time of discharge. Patient wishes to be a Full Code and signed MOLST form. Patient reports to have no questions about insurance benefits or coverage. This manager social encouraged patient to reach out to secondary insurance to confirm coverage options after 20 days. PLAN: Home with spouse. Social work to continue to follow. Rocco SALCIDO, TITI-S
[2022-11-15 23:00] VITALS: BP 126/40; PULSE 70
[2022-11-15] MEDS: Atenolol 50 MG Tablet 75 MG PO (23:14)
[2022-11-15] MEDS: clonazePAM 0.5 MG Tablet PO (23:16)
[2022-11-15] MEDS: Amitriptyline 100 MG Tablet PO (23:17)
[2022-11-16] MEDS: Mupirocin Ointment 22gm Tube 1 APPLIC TOPICAL (05:35)
[2022-11-16] MEDS: Pantoprazole Sodium 40 MG Tablet PO (05:36)
[2022-11-16] MEDS: Bumetanide 2 MG Tablet PO (05:36)
[2022-11-16] MEDS: Baclofen 10 MG Tablet 30 MG PO ×3 (05:36→21:22)
[2022-11-16] MEDS: Atenolol 50 MG Tablet PO (05:36)
[2022-11-16] MEDS: Enoxaparin 40 MG/0.4 ML Syringe SC (05:37)
[2022-11-16] MEDS: Ibuprofen 400 MG Tablet PO (05:37)
[2022-11-16] MEDS: Amantadine 100 MG Capsule PO ×2 (05:37→17:08)
[2022-11-16] MEDS: Calcitonin-Salmon 1 SPRAY SPRAY NARES (05:38)
[2022-11-16] MEDS: Senna/Docusate Sodium 1 Tablet 2 TABLET PO (05:38)
[2022-11-16] MEDS: Ergocalciferol 1.25 MG (50, 000 UNIT) Capsule PO (05:39)
[2022-11-16] MEDS: Menthol/Lanolin/Calamine/Znox 113 GM Tube 1 APPLIC TOPICAL (05:39)
[2022-11-16] MEDS: Nystatin Powder 15gm Bottle 1 APPLIC TOPICAL ×2 (05:40→21:22)
[2022-11-16] MEDS: Potassium Chloride Oral Tablet 20 MEQ PO ×2 (08:18→17:08)
[2022-11-16] MEDS: Calcium Carbonate 500 MG Tablet PO ×2 (08:18→17:08)
[2022-11-16] MEDS: Juven (unflavored) Packet 1 PACKET PO ×2 (08:18→17:08)
[2022-11-16 10:00] VITALS: PULSE 67; O2SAT 97
[2022-11-16 11:36] VITALS: BMI 39.6
[2022-11-16 14:13] VITALS: BP 118/55; PULSE 63; RESP 18; TEMP 36; O2SAT 97
[2022-11-16] MEDS: Atenolol 50 MG Tablet 75 MG PO (21:21)
[2022-11-16] MEDS: clonazePAM 0.5 MG Tablet PO (21:22)
[2022-11-16] MEDS: Amitriptyline 100 MG Tablet PO (21:23)
[2022-11-17] MEDS: Atenolol 50 MG Tablet PO (06:36)
[2022-11-17] MEDS: Bumetanide 2 MG Tablet PO (06:36)
[2022-11-17] MEDS: Ibuprofen 400 MG Tablet PO (06:36)
[2022-11-17] MEDS: Pantoprazole Sodium 40 MG Tablet PO (06:36)
[2022-11-17] MEDS: Enoxaparin 40 MG/0.4 ML Syringe SC (06:36)
[2022-11-17] MEDS: Amantadine 100 MG Capsule PO ×2 (06:37→18:20)
[2022-11-17] MEDS: Baclofen 10 MG Tablet 30 MG PO ×3 (06:38→21:08)
[2022-11-17] MEDS: Calcitonin-Salmon 1 SPRAY SPRAY NARES (06:38)
[2022-11-17 06:47] VITALS: BP 138/61; PULSE 62; RESP 16
[2022-11-17] MEDS: Juven (unflavored) Packet 1 PACKET PO ×2 (07:51→18:20)
[2022-11-17] MEDS: Calcium Carbonate 500 MG Tablet PO ×2 (07:51→18:19)
[2022-11-17] MEDS: Potassium Chloride Oral Tablet 20 MEQ PO ×2 (07:51→18:19)
--- NOTE | 2022-11-17 14:03 | CASEMGMT ---
Social Work IDT met with patient and dtr for care plan meeting. Discussed patient's progress in PT/OT/SN. Educated to Medicare benefit. Encouraged to contact secondary insurance to ensure copay coverage. Pt's goal is to DC home with . Pt and dtr encouraged to gauge DC readiness and offered ongoing therapy training for family. Family obtained temporary ramp that can be placed at any entrance to the home. Family discussed setting DC 11/26. IDT agreeable. Family and pt feel comfortable with pt DCing home after TAMY occurred. Pt requesting drop arm 18 inch w/c with ELR. Possibly a FWW, but dtr will bring in pt's current walker to see if pt can use that one. Educated to dtr/pt that insurance typically covers one ambulation device within the 5 year period, but can submit to insurance since pt requires both devices for mobility. SW to coordinate skilled C PT/OT/SN/NOVOA. SW provided printed HHC list with quality and resource data via [employer]. [place] [facility] [place] Dtr to purchase ADL hip kit and half bed rail. Plan: DC home with family assistance 11/26, HHC PT/OT/SN/NOVOA, drop arm w/c LOLY [facility]
[2022-11-17 15:26] VITALS: BP 117/60; PULSE 59; RESP 16; TEMP 36.3; O2SAT 99
--- NOTE | 2022-11-17 20:21 | PCM.DC.SUM ---
Providers Date of Admission: 11/12/22 Primary Care Physician: Dr. Walt La DO Reason For Visit: DEBILITY Diagnosis Discharge Diagnosis (1) Debility: Status: Acute Code(s): R53.81 - Other malaise (2) History of open reduction and internal fixation (ORIF) procedure: Status: Acute Code(s): Z98.890 - Other specified postprocedural states (3) Bimalleolar avulsion fracture of right ankle: Status: Acute Code(s): S82.841A - Displaced bimalleolar fracture of right lower leg, initial encounter for closed fracture (4) Multiple sclerosis: Status: Acute Code(s): G35 - Multiple sclerosis (5) Osteopenia: Status: Acute Code(s): M85.80 - Other specified disorders of bone density and structure, unspecified site Qualifiers: Osteopenia location: multiple sites Qualified Code(s): M85.89 - Other specified disorders of bone density and structure, multiple sites (6) Foot drop, left: Status: Acute Code(s): M21.372 - Foot drop, left foot (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 Code(s): L88 - Pyoderma gangrenosum (8) HTN (hypertension): Status: Chronic Code(s): I10 - Essential (primary) hypertension Qualifiers: Hypertension type: primary hypertension Qualified Code(s): I10 - Essential (primary) hypertension (9) Peripheral neuropathy: Status: Chronic (10) Thrombocytopenia: Status: Acute Code(s): D69.6 - Thrombocytopenia, unspecified (11) Leukopenia: Status: Acute Code(s): D72.819 - Decreased white blood cell count, unspecified Qualifiers: Leukopenia type: lymphocytopenia Qualified Code(s): D72.810 - Lymphocytopenia (12) Pica: Status: Acute Code(s): F50.89 - Other specified eating disorder Medications at Discharge Home Medications amitriptyline 100 mg tablet 100 mg PO QHS DEPRESSION 08/04/14 atenolol 50 mg tablet 50 mg PO DAILY BLOOD PRESSURE 08/04/14 atenolol 50 mg tablet 75 mg PO QHS BLOOD PRESSURE 08/04/14 baclofen 20 mg tablet 30 mg PO Q8 MS 08/04/14 cholecalciferol (vitamin D3) 1,250 mcg (50,000 unit) capsule 50,000 unit PO TUTH Supplement 08/04/14 cyanocobalamin (vitamin B-12) 1,000 mcg/mL injection solution 100 mcg IM Q30D SUPPLEMENT 08/04/14 ibuprofen 200 mg tablet 400 mg PO DAILY PAIN 08/04/14 amantadine HCl 100 mg capsule 100 mg PO BID SPASMS 09/04/18 bumetanide 2 mg tablet 2 mg PO DAILY fluid pill #1 TAB 11/12/22 calcium carbonate 200 mg calcium (500 mg) chewable tablet 500 mg (2.5 x 200 mg calcium (500 mg)) PO BIDCM supplement #1 TAB 11/12/22 arginine 7 gram-glutam 7 gram-CaHMB 1.5 [id number]-min oral pwd pkt (Uriel (with collagen)) 1 packet PO BIDCM 30 days #60 ea 11/17/22 clonazepam 0.5 mg tablet 0.5 mg PO QHS PRN Spasms 30 days #30 tabs 11/17/22 mupirocin 2 % topical ointment 1 applic topical 0600,2200 30 days #45 grams 11/17/22 pantoprazole 40 mg tablet,delayed release 40 mg PO DAILY 30 days #30 tabs 11/17/22 potassium chloride 20 mEq tablet,extended release(part/cryst) (Klor-Con M) 20 meq PO BIDCM 30 days #60 tabs 11/17/22 rizatriptan 10 mg tablet 10 mg PO DAILY PRN PRN MIGRAINE SYMPTOMS 30 days #30 tabs 11/17/22 sennosides 8.6 mg-docusate sodium 50 mg tablet (Stool Softener-Stimulant Laxative) 2 tab PO BID 30 days #120 tabs 11/17/22 tramadol 50 mg tablet 50 mg PO Q6H PRN PRN Pain 1-10 7 days #28 tabs 11/17/22 Hospital Course Operations - (Right ankle fracture ORIF.) Procedures None Summary of Care Provided Minutes Spent on Discharge: 35 Hospital Course: 66 year old female with MS, hospitalized for right bimalleolar ankle fracture, underwent ORIF, admitted to [facility], then TCU for rehabilitation, strengthening, prior to discharge home. Discharge home with family assistance 11/26/2022, Home Health Care PT/OT/SN/NOVAO, drop arm wheelchair elevated leg rests. Physical Exam Const alert General Appearance: cooperative HEENT normocephalic Eyes PERRL and EOMs intact bilaterally Neck supple, no JVD and no carotid bruits Resp normal respiratory effort, normal air movement and clear to auscultation bilaterally Cardio regular rate and regular rhythm GI normal to inspection, nondistended, normoactive bowel sounds, non-tender and non-distended Extremity normal capillary refill Extremity Narrative: Right lower extremity cast. General Extremity: Negative for edema Skin no rashes or lesions noted General Skin Exam: no breakdown Psych affect normal Appearance: appropriate Weight / BMI Weight Weight: 104.837 kg Body Mass Index (BMI) 39.6 ABG / Lab / Microbiology Data 11/13/22 06:47 11/13/22 06:47 D/C Instructions Discharge Diet: No restrictions Discharge Activity: Return to Normal Activity, May Shower and Use Walker Weight Bearing Status: Weight bearing as tolerated (Left lower extremity.) and Toe touch weight bearing (Right lower extremity.) Call your doctor if you observe: Fever of 101 or Higher, Inability to urinate, Inability to have a bowel movement, Shortness of breath, Dizziness, Fainting spells, Swelling in the ankles, Chest pain and Uncontrolled pain Additional Instructions: Discharge home with family assistance 11/26/2022, Home Health Care PT/OT/SN/NOVOA, drop arm wheelchair elevated leg rests. Please Follow Up With: Juan Manuel Umaña DPM When: 1 week. Meaningful Use Info Meaningful Use Diagnoses (Choose all that apply): None applicable Discharge Plan Admission Admit Date/Time: 11/12/22 15:41 Primary Reason for Your Visit: Debility. Attending Provider: Richar Worthy Chi Primary Care Provider: Walt La Instructions Additional Instructions / Restrictions: Discharge home with family assistance 11/26/2022, Home Health Care PT/OT/SN/NOVOA, drop arm wheelchair elevated leg rests. Discharge Orders/Prescriptions Prescriptions: New clonazepam 0.5 mg Tablet 0.5 mg PO QHS PRN (Reason: Spasms) 30 Days Qty: 30 0RF rizatriptan 10 mg Tablet 10 mg PO DAILY PRN PRN (Reason: MIGRAINE SYMPTOMS) 30 Days Qty: 30 0RF sennosides-docusate sodium [Stool Softener-Stimulant Laxat] 8.6-50 mg Tablet 2 tab PO BID 30 Days Qty: 120 0RF tramadol 50 mg Tablet 50 mg PO Q6H PRN PRN (Reason: Pain 1-10) 7 Days Qty: 28 0RF potassium chloride [Klor-Con M20] 20 mEq Tablet,Er Particles/Crystals 20 meq PO BIDCM 30 Days Qty: 60 0RF pantoprazole 40 mg Tablet,Delayed Release (Dr/Ec) 40 mg PO DAILY 30 Days Qty: 30 0RF mupirocin 2 % Ointment 1 applic topical 0600,2200 30 Days Qty: 45 0RF Protocol: *Topical Application Instructions APPLICATION INSTRUCTIONS: Please apply to wounds on the right lateral upper thigh twice daily Uriel (with collagen) 7-7-1.5 gram Powder In Packet 1 packet PO BIDCM 30 Days Qty: 60 0RF Continued baclofen 20 MG tablet 30 mg PO Q8 cyanocobalamin (vitamin B-12) 1,000 MCG/ML solution 100 mcg IM Q30D ibuprofen 200 MG tablet 400 mg PO DAILY amitriptyline 100 MG tablet 100 mg PO QHS atenolol 50 MG tablet 75 mg PO QHS atenolol 50 MG tablet 50 mg PO DAILY cholecalciferol (vitamin D3) 50,000 UNIT capsule 50,000 unit PO TUTH amantadine HCl 100 MG capsule 100 mg PO BID bumetanide 2 mg Tablet 2 mg PO DAILY Qty: 1 0RF calcium carbonate 200 mg calcium (500 mg) Tablet,Chewable 500 mg PO BIDCM Qty: 1 0RF Discontinued tramadol 50 MG tablet 50 mg PO Q6H PRN PRN (Reason: Pain 1-10) pantoprazole 40 mg tablet,delayed release (DR/EC) 40 mg PO DAILY clonazepam [Klonopin] 0.5 mg Tablet 0.5 mg PO QHS PRN (Reason: Spasms) enoxaparin [Lovenox] 40 mg/0.4 mL syringe 40 mg subcut DAILY@0600 rizatriptan 10 mg Tablet 10 mg PO PRN PRN (Reason: MIGRAINE SYMPTOMS) Qty: 1 0RF sennosides-docusate sodium [Stool Softener-Stimulant Laxat] 8.6-50 mg Tablet 2 tab PO BID Qty: 1 0RF potassium chloride [Klor-Con M20] 20 mEq Tablet,Er Particles/Crystals 20 meq PO BIDCM Qty: 1 0RF magnesium hydroxide 400 mg/5 mL Suspension 30 ml PO .PRN X 1 PRN (Reason: Constipation) Qty: 1 0RF calcitonin (salmon) 200 unit/actuation [place],Non-Aerosol 1 spray NARES DAILY Qty: 1 0RF bisacodyl 10 mg Suppository 10 mg ID .PRN X 1 PRN (Reason: Constipation) Qty: 1 0RF nystatin [Nyamyc] 100,000 unit/gram Powder 1 applic topical 0600,2200 Qty: 1 0RF Protocol: *Topical Application Instructions APPLICATION INSTRUCTIONS: groin and abdomen folds menthol-zinc oxide [Calmoseptine] 0.44-20.6 % Ointment 1 applic topical BID Qty: 1 0RF Protocol: *Topical Application Instructions APPLICATION INSTRUCTIONS: buttocks Uriel (with collagen) 7-7-1.5 gram Powder In Packet 1 packet PO BIDCM Qty: 1 0RF mupirocin 2 % Ointment 1 applic topical 599,2199 Protocol: *Topical Application Instructions APPLICATION INSTRUCTIONS: Please apply to the wounds on the right lateral upper thigh twice daily. Rx Instructions: Please apply to wounds on the right lateral upper thigh twice daily Referrals / Follow Up: Walt La DO [Primary Care Provider] - Disposition Disposition (needs filled in before D/C Order can be placed): Home Health Service
[2022-11-17] MEDS: Mupirocin Ointment 22gm Tube 1 APPLIC TOPICAL (21:05)
[2022-11-17] MEDS: Amitriptyline 100 MG Tablet PO (21:08)
[2022-11-17] MEDS: Atenolol 50 MG Tablet 75 MG PO (21:08)
[2022-11-17] MEDS: Nystatin Powder 15gm Bottle 1 APPLIC TOPICAL (21:08)
[2022-11-17 21:10] VITALS: PULSE 70; RESP 16; O2SAT 93
[2022-11-17] MEDS: clonazePAM 0.5 MG Tablet PO (21:10)
[2022-11-17 22:56] VITALS: BP 115/43; PULSE 70
[2022-11-18] MEDS: Enoxaparin 40 MG/0.4 ML Syringe SC (05:34)
[2022-11-18] MEDS: Ergocalciferol 1.25 MG (50, 000 UNIT) Capsule PO (05:34)
[2022-11-18] MEDS: Baclofen 10 MG Tablet 30 MG PO ×3 (05:35→21:48)
[2022-11-18] MEDS: Atenolol 50 MG Tablet PO (05:35)
[2022-11-18] MEDS: Amantadine 100 MG Capsule PO ×2 (05:35→18:27)
[2022-11-18] MEDS: Ibuprofen 400 MG Tablet PO (05:35)
[2022-11-18] MEDS: Bumetanide 2 MG Tablet PO (05:35)
[2022-11-18] MEDS: Pantoprazole Sodium 40 MG Tablet PO (05:36)
[2022-11-18] MEDS: Calcitonin-Salmon 1 SPRAY SPRAY NARES (05:36)
[2022-11-18 05:45] VITALS: BP 118/46; PULSE 61
[2022-11-18] MEDS: Juven (unflavored) Packet 1 PACKET PO ×2 (08:47→18:27)
[2022-11-18] MEDS: Potassium Chloride Oral Tablet 20 MEQ PO ×2 (08:48→18:27)
[2022-11-18] MEDS: Calcium Carbonate 500 MG Tablet PO ×2 (08:48→18:27)
[2022-11-18] MEDS: Cyanocobalamin (B12) 1,000 MCG/ML Vial 1000 MCG IM (08:48)
[2022-11-18 09:16] VITALS: PULSE 65; RESP 17; O2SAT 96
--- NOTE | 2022-11-18 13:22 | RAD_ITS ---
STUDY: X-RAY - RIGHT ANKLE REASON FOR EXAM: Female, 66 years old. F/U ANKLE FRACTURE TECHNIQUE: 3 view(s) of the ankle. COMPARISON: Comparison is made with prior study dated November 08, 2022. FINDINGS: The patient is status post open reduction and internal fixation of the distal fibula as well as screw fixation of the medial malleolus. There is good alignment. Normal tibiotalar articulation and ankle mortise. Normal visualized talus and calcaneus. The visualized subtalar, talonavicular, calcaneocuboid and tarsal articulations are normal. Persistent soft tissue swelling. RAD/Ankle min 3 Views IMPRESSION: Status post ORIF of the distal fibula and medial malleolar fractures. There is good alignment. Soft tissue swelling. Electronically Signed: Feroz Nowak MD at 14:02 EDT ,
[2022-11-18 16:00] VITALS: BP 127/54; PULSE 65; RESP 16; TEMP 35.6; O2SAT 98
[2022-11-18] MEDS: clonazePAM 0.5 MG Tablet PO (21:45)
[2022-11-18] MEDS: Nystatin Powder 15gm Bottle 1 APPLIC TOPICAL (21:47)
[2022-11-18] MEDS: Amitriptyline 100 MG Tablet PO (21:48)
[2022-11-18] MEDS: Atenolol 50 MG Tablet 75 MG PO (21:49)
[2022-11-18 21:57] VITALS: BP 124/55; PULSE 63; RESP 16
[2022-11-19] MEDS: Enoxaparin 40 MG/0.4 ML Syringe SC (05:37)
[2022-11-19] MEDS: Baclofen 10 MG Tablet 30 MG PO ×3 (05:37→21:51)
[2022-11-19] MEDS: Pantoprazole Sodium 40 MG Tablet PO (05:38)
[2022-11-19] MEDS: Atenolol 50 MG Tablet PO (05:38)
[2022-11-19] MEDS: Bumetanide 2 MG Tablet PO (05:38)
[2022-11-19] MEDS: Calcitonin-Salmon 1 SPRAY SPRAY NARES (05:38)
[2022-11-19] MEDS: Ibuprofen 400 MG Tablet PO (05:38)
[2022-11-19] MEDS: Amantadine 100 MG Capsule PO ×2 (05:38→16:51)
--- NOTE | 2022-11-19 09:15 | CON.PCM_ITS ---
Assessment & Plan Assessment/Plan (1) Bimalleolar avulsion fracture of right ankle: PLAN: Exam performed radiographs reviewed- demonstrate intact hardware with good healing continue weightbearing assisted by walker in boot on right follow up in 2 weeks upon d/c from facility continue therapy likely to progress out of boot in 4-6 weeks HPI Consult Data Date of Consult: 11/19/22 HPI Narrative HPI Narrative: MEGGAN KITCHEN, is a 66 F who was seen for right ankle fracture ORIF on 10/25/22. PAtient 3.5 weeks post op. Patient able to ambulate assisted in boot with therapy. No pain or signs of DVT. [facility] Medical History (Updated 11/13/22 @ 14:[address] Sosa Alcala, ) Anxiety Bimalleolar fracture of right ankle COVID-19 Difficulty swallowing Exacerbation of multiple sclerosis Former smoker Gastric reflux History of gastric polyp History of GI bleed History of migraine headaches History of stress test Hypertension Multiple sclerosis Osteopenia Peripheral neuropathy Shortness of breath on exertion Home Medications amitriptyline 100 mg tablet 100 mg PO QHS DEPRESSION 08/04/14 [History Last Taken 11/11/22] atenolol 50 mg tablet 50 mg PO DAILY BLOOD PRESSURE 08/04/14 [History Last Taken 11/12/22] atenolol 50 mg tablet 75 mg PO QHS BLOOD PRESSURE 08/04/14 [History Last Taken 11/11/22] baclofen 20 mg tablet 30 mg PO Q8 MS 08/04/14 [History Last Taken 11/12/22] cholecalciferol (vitamin D3) 1,250 mcg (50,000 unit) capsule 50,000 unit PO TUTH Supplement 08/04/14 [History Last Taken 11/11/22] cyanocobalamin (vitamin B-12) 1,000 mcg/mL injection solution 100 mcg IM Q30D SUPPLEMENT 08/04/14 [History Last Taken 10/18/22 10:00] ibuprofen 200 mg tablet 400 mg PO DAILY PAIN 08/04/14 [History Last Taken 11/12/22] amantadine HCl 100 mg capsule 100 mg PO BID SPASMS 09/04/18 [History Last Taken 11/12/22] bumetanide 2 mg tablet 2 mg PO DAILY fluid pill #1 TAB 11/12/22 [Rx Last Taken 11/12/22] calcium carbonate 200 mg calcium (500 mg) chewable tablet 500 mg (2.5 x 200 mg calcium (500 mg)) PO BIDCM supplement #1 TAB 11/12/22 [Rx Last Taken 11/12/22] arginine 7 gram-glutam 7 gram-CaHMB 1.5 [id number]-[id number]-min oral pwd pkt (Uriel (with collagen)) 1 packet PO BIDCM 30 days #60 ea 11/17/22 [Rx Last Taken Unknown] clonazepam 0.5 mg tablet 0.5 mg PO QHS PRN Spasms 30 days #30 tabs 11/17/22 [Rx Last Taken Unknown] mupirocin 2 % topical ointment 1 applic topical 0600,2200 30 days #45 grams 11/17/22 [Rx Last Taken Unknown] pantoprazole 40 mg tablet,delayed release 40 mg PO DAILY 30 days #30 tabs 11/17/22 [Rx Last Taken Unknown] potassium chloride 20 mEq tablet,extended release(part/cryst) (Klor-Con M) 20 meq PO BIDCM 30 days #60 tabs 11/17/22 [Rx Last Taken Unknown] rizatriptan 10 mg tablet 10 mg PO DAILY PRN PRN MIGRAINE SYMPTOMS 30 days #30 tabs 11/17/22 [Rx Last Taken Unknown] sennosides 8.6 mg-docusate sodium 50 mg tablet (Stool Softener-Stimulant Laxative) 2 tab PO BID 30 days #120 tabs 11/17/22 [Rx Last Taken Unknown] tramadol 50 mg tablet 50 mg PO Q6H PRN PRN Pain 1-10 7 days #28 tabs 11/17/22 [Rx Last Taken Unknown] Allergy/AdvReac Type Severity Reaction Status Date / Time adhesive AdvReac RED Verified 10/24/22 22:15 amlodipine besylate AdvReac Nausea Verified 10/24/22 22:15 [From Lotrel] benazepril HCl [From Lotrel] AdvReac Nausea Verified 10/24/22 22:15 codeine AdvReac Nausea Verified 10/24/22 22:15 latex AdvReac RED Verified 10/24/22 22:15 Penicillins AdvReac Nausea Verified 10/24/22 22:15 Family History Brother Diabetes Heart disease Kidney disease Cancer Mother Diabetes Hypertension Thyroid disorder VTE (venous thromboembolism) Son VTE (venous thromboembolism) Surgical History (Updated 11/13/22 @ 13:[address] Sosa Alcala DO) History of cataract surgery History of colonoscopy History of hysterectomy History of open reduction and internal fixation (ORIF) procedure History of skin surgery History of surgical procedure on mouth Social History household members: spouse housing: house pets and animals: Yes Smoking Status: Former smoker pack-years: 35 Tobacco: How many years used: 35 how long ago did patient quit smoking: quit smoking in 2008 and started as a teenager. alcohol intake: never substance use type: does not use additional social history: uses ibuprofen daily Physical Exam Narrative neurovascular status intact no signs of dvt right ankle incision healed no pain to right ankle, full range of motion. Const alert and oriented x3 Lab / Micro Data 11/13/22 06:47 11/13/22 06:47 Radiology Impression Ankle X-Ray 11/18/22 13:22 IMPRESSION: Status post ORIF of the distal fibula and medial malleolar fractures. There is good alignment. Soft tissue swelling. Electronically Signed: Feroz Nowak MD at 14:02 EDT ,
--- NOTE | 2022-11-19 09:38 | NURSING ---
Software Firmware Engineer Note; MDS Complete
[2022-11-19] MEDS: Juven (unflavored) Packet 1 PACKET PO ×2 (09:51→16:50)
[2022-11-19] MEDS: Potassium Chloride Oral Tablet 20 MEQ PO ×2 (09:51→16:50)
[2022-11-19] MEDS: Calcium Carbonate 500 MG Tablet PO ×2 (09:51→16:50)
[2022-11-19 10:00] VITALS: PULSE 65; RESP 18; O2SAT 96
--- NOTE | 2022-11-19 11:30 | CASEMGMT ---
Social Work BIMS () and PHQ-9 () completed for MDS assessment. SW inquired about [facility] agency. Pt waiting for dtr's opinion and will notify this worker. LOLY PrattW
[2022-11-19 16:00] VITALS: BP 119/62; PULSE 65; RESP 14; TEMP 36.1; O2SAT 99
[2022-11-19] MEDS: Atenolol 50 MG Tablet 75 MG PO (21:51)
[2022-11-19] MEDS: clonazePAM 0.5 MG Tablet PO (21:52)
[2022-11-19] MEDS: Amitriptyline 100 MG Tablet PO (21:52)
[2022-11-19 21:55] VITALS: BP 120/51; PULSE 66; RESP 16
[2022-11-20] MEDS: Calcitonin-Salmon 1 SPRAY SPRAY NARES (06:52)
[2022-11-20] MEDS: Atenolol 50 MG Tablet PO (06:54)
[2022-11-20] MEDS: Pantoprazole Sodium 40 MG Tablet PO (06:54)
[2022-11-20] MEDS: Enoxaparin 40 MG/0.4 ML Syringe SC (06:54)
[2022-11-20] MEDS: Senna/Docusate Sodium 1 Tablet 2 TABLET PO (06:54)
[2022-11-20] MEDS: Ibuprofen 400 MG Tablet PO (06:54)
[2022-11-20] MEDS: Amantadine 100 MG Capsule PO ×2 (06:54→16:55)
[2022-11-20] MEDS: Bumetanide 2 MG Tablet PO (06:54)
[2022-11-20] MEDS: Baclofen 10 MG Tablet 30 MG PO ×3 (06:54→21:46)
[2022-11-20] MEDS: Calcium Carbonate 500 MG Tablet PO ×2 (07:56→16:55)
[2022-11-20] MEDS: Juven (unflavored) Packet 1 PACKET PO ×2 (07:56→16:54)
[2022-11-20] MEDS: Potassium Chloride Oral Tablet 20 MEQ PO ×2 (07:56→16:55)
[2022-11-20 08:13] LABS: Absolute Lymphocyte Count 0.71 X10^3/uL (0.83-4.51); Absolute Neutrophil Count 3.1 X10^3/uL (2.0-7.7); Basophil# 0.04 X10^3/uL; Basophil% 0.9 % (0-1); Eosinophil# 0.14 X10^3/uL; Eosinophils% 3.1 % (0-5); Hematocrit 35.6 % (37-47); Hemoglobin 11.8 g/dL (12.0-15.0); Lymphocyte # 0.71 X10^3/ul (0.83-4.51); Lymphocyte % 15.7 % (19-41); Mean Corp Hgb Conc 33.1 g/dL (32-36); Mean Corpuscular Hgb 33.3 pg (27.0-32.0); Mean Corpuscular Volume 100.6 fL (81-99); Mean Platelet Vol. 11.7 fl (6.2-12.0); Monocyte# 0.58 X10^3/uL; Monocyte% 12.8 % (0-10); NRBC Flagged by Analyzer 0 % (0-5); Neutrophil # 3.05 X10^3/uL (2.7-7.7); Neutrophil % 67.3 % (47-70); Platelet Count 143 K/mm3 (150-450); RBC Distribution Width CV 13.7 % (11.6-14.6); RBC Distribution Width SD 50.4 fl (35.1-43.9); Red Blood Count 3.54 M/mm3 (4.2-5.4); White Blood Count 4.5 K/mm3 (4.4-11.0)
[2022-11-20 08:39] LABS: Anion Gap 6 (5-15); BUN 25 mg/dL (7-18); BUN/Creat Ratio 28.5 RATIO (10-20); Chloride 109 mmol/L (98-107); Creatinine, Serum 0.88 mg/dL (0.55-1.02); EST Glomerular Filtration Rate 69 mL/min (>60); Est Glom Filt Rate - Afr Amer 83 mL/min (>60); Estimated Creatinine Clearance 55.04 ml/min; Glucose 87 mg/dL (74-106); Sodium Level 141 mmol/L (136-145)
[2022-11-20 09:07] VITALS: BP 112/58; PULSE 62; RESP 18; TEMP 35.9; O2SAT 96
[2022-11-20] MEDS: Tuberculin,Purif.prot.deriv. 50 TU/ML Vial 0.1 ML ID (11:35)
[2022-11-20] MEDS: clonazePAM 0.5 MG Tablet PO (21:44)
[2022-11-20] MEDS: Atenolol 50 MG Tablet 75 MG PO (21:45)
[2022-11-20] MEDS: Amitriptyline 100 MG Tablet PO (21:46)
[2022-11-21] MEDS: Atenolol 50 MG Tablet PO (06:36)
[2022-11-21] MEDS: Amantadine 100 MG Capsule PO ×2 (06:36→16:52)
[2022-11-21] MEDS: Pantoprazole Sodium 40 MG Tablet PO (06:36)
[2022-11-21] MEDS: Ibuprofen 400 MG Tablet PO (06:37)
[2022-11-21] MEDS: Calcitonin-Salmon 1 SPRAY SPRAY NARES (06:37)
[2022-11-21] MEDS: Enoxaparin 40 MG/0.4 ML Syringe SC (06:37)
[2022-11-21] MEDS: Bumetanide 2 MG Tablet PO (06:37)
[2022-11-21] MEDS: Baclofen 10 MG Tablet 30 MG PO ×3 (06:37→22:47)
[2022-11-21 06:43] VITALS: BP 105/46; PULSE 60
[2022-11-21 08:52] VITALS: BP 108/51; PULSE 62; RESP 16; TEMP 35.7; O2SAT 98
[2022-11-21] MEDS: Potassium Chloride Oral Tablet 20 MEQ PO ×2 (08:55→16:52)
[2022-11-21] MEDS: Calcium Carbonate 500 MG Tablet PO ×2 (08:56→16:52)
[2022-11-21] MEDS: Juven (unflavored) Packet 1 PACKET PO (16:52)
[2022-11-21 22:45] VITALS: PULSE 66; RESP 16; O2SAT 94
[2022-11-21] MEDS: Atenolol 50 MG Tablet 75 MG PO (22:46)
[2022-11-21] MEDS: Amitriptyline 100 MG Tablet PO (22:47)
[2022-11-21] MEDS: clonazePAM 0.5 MG Tablet PO (22:47)
[2022-11-21 23:06] VITALS: BP 141/59; PULSE 66
[2022-11-22] MEDS: Bumetanide 2 MG Tablet PO (06:36)
[2022-11-22] MEDS: Calcitonin-Salmon 1 SPRAY SPRAY NARES (06:37)
[2022-11-22] MEDS: Pantoprazole Sodium 40 MG Tablet PO (06:37)
[2022-11-22] MEDS: Baclofen 10 MG Tablet 30 MG PO ×3 (06:37→21:47)
[2022-11-22] MEDS: Enoxaparin 40 MG/0.4 ML Syringe SC (06:37)
[2022-11-22] MEDS: Ibuprofen 400 MG Tablet PO (06:37)
[2022-11-22] MEDS: Atenolol 50 MG Tablet PO (06:38)
[2022-11-22] MEDS: Amantadine 100 MG Capsule PO ×2 (06:38→17:23)
[2022-11-22 06:43] VITALS: BP 114/47; PULSE 61
[2022-11-22] MEDS: Potassium Chloride Oral Tablet 20 MEQ PO ×2 (08:17→17:24)
[2022-11-22] MEDS: Juven (unflavored) Packet 1 PACKET PO ×2 (08:17→17:23)
[2022-11-22] MEDS: Calcium Carbonate 500 MG Tablet PO ×2 (08:17→17:23)
--- NOTE | 2022-11-22 12:22 | CASEMGMT ---
Addendum entered by Renuka Stephen 11/23/22 09:46: ADIN emailed [facility] again this morning to follow up on the w/c. Decorator Inspector replied stating w/c's are on back order, but expecting a shipment by the end of this week. SW inquired about drop shipping w/c to pt's home. [employer] Decorator Inspector confirmed the shipment should arrive to pt's home on 11/25. ADIN spoke with pt to update and give option for DC. Pt wanting to DC home 11/24, stating she has an electric w/c to use in the meantime, or can purchase the w/c if needed. Dtr gets off work about noon and will orange picker shortly after. ADIN updated [facility] with request. ADIN phoned [facility] with new DC date. IDT updated. Plan: DC home 11/24, [facility] PT/OT/SN/NOVOA, w/c Addendum entered by eRnuka Stephen 11/22/22 15:04: [facility] can accept. ADIN left two additional messages with [facility] requesting update on W/C. Will continue to follow. Original Note: Social Work Received call from pt providing [facility] agencies - [facility] and [facility]. Pt also requesting if pt can DC home on 11/24, as dtr works a half-day. ADIN offered to f/u on DME as pt needs that for DC. ADIN sent secure email to [facility] requesting status of w/c. ADIN phoned referral to [facility] for PT/OT/SN/NOVOA. Will follow. LOLY Pratt
--- NOTE | 2022-11-22 14:30 | PHA.CONS_ITS ---
<Statement entered by Richar Worthy MD - 11/22/22 14:42> I have personally performed a face to face assessment of the patient and have reviewed the MULU Note. Documented by User: Shreya Coburnder 11/22/22 14:54 TCU RX Drug Regimen Review Subjective/Objective Subjective/Objective: Subjective: TCU Admission. 66 YOF presented to [facility] ED on 10/25 with bimalleolar right ankle fracture secondary to multiple falls. Admitted to TCU on 11/12 for rehabilitation and strengthening prior to discharge home.? Objective: Allergies adhesive Adverse Reaction (Verified 10/24/22 22:15) RED amlodipine besylate [From Lotrel] Adverse Reaction (Verified 10/24/22 22:15) Nausea benazepril HCl [From Lotrel] Adverse Reaction (Verified 10/24/22 22:15) Nausea codeine Adverse Reaction (Verified 10/24/22 22:15) Nausea latex Adverse Reaction (Verified 10/24/22 22:15) RED Penicillins Adverse Reaction (Verified 10/24/22 22:15) Nausea Current Medications Generic Name Dose Route Start Last Admin Trade Name Freq PRN Reason Stop Dose Admin Amantadine HCl 100 mg 11/12/22 18:00 11/22/22 06:38 Amantadine 100 Mg Capsule PO 100 mg BID SONG Administration Amitriptyline HCl 100 mg 11/12/22 22:00 11/21/22 22:47 Amitriptyline 100 Mg Tablet PO 100 mg QHS SONG Administration Atenolol 75 mg 11/12/22 22:00 11/21/22 22:46 Atenolol 50 Mg Tablet PO 75 mg QHS SONG Administration Atenolol 50 mg 11/13/22 06:00 11/22/22 06:38 Atenolol 50 Mg Tablet PO 50 mg DAILY SONG Administration Baclofen 30 mg 11/12/22 22:00 11/22/22 13:52 Baclofen 10 Mg Tablet PO 30 mg Q8 SONG Administration Bisacodyl 10 mg 11/12/22 17:15 Bisacodyl 10 Mg Suppository RC .PRN X 1 PRN Constipation Bumetanide 2 mg 11/15/22 06:00 11/22/22 06:36 Bumetanide 2 Mg Tablet PO 2 mg DAILY SONG Administration Calamine/Phenol 1 applic 11/12/22 18:00 11/22/22 06:38 Menthol/Lanolin/Calamine/Znox 113 Gm Tube TOPICAL Not Given BID [facility] Protocol Calcitonin Lowell 1 spray 11/13/22 06:00 11/22/22 06:37 Calcitonin-Lowell 1 Kaufman Kaufman NARES 1 spray DAILY SONG Administration Calcium Carbonate 500 mg 11/13/22 08:00 11/22/22 08:17 Calcium Carbonate 500 Mg Tablet PO 500 mg BIDCM SONG Administration Clonazepam 0.5 mg 11/12/22 17:15 11/21/22 22:47 Clonazepam 0.5 Mg Tablet PO 0.5 mg QHS PRN Administration SPASMS Cyanocobalamin 1,000 mcg 11/18/22 10:00 11/18/22 08:48 Cyanocobalamin (B12) 1,000 Mcg/Ml Vial IM 1,000 mcg Q30D [facility] Administration Enoxaparin Sodium 40 mg 11/13/22 06:00 11/22/22 06:37 Enoxaparin 40 Mg/0.4 Ml Syringe SC 40 mg DAILY@0600 [facility] Administration Ergocalciferol 1.25 mg 11/16/22 06:00 11/18/22 05:34 Ergocalciferol 1.25 Mg (50, 000 Unit) Capsule PO 1.25 mg TuTh@0600 [facility] Administration Ibuprofen 400 mg 11/13/22 06:00 11/22/22 06:37 Ibuprofen 400 Mg Tablet PO 400 mg DAILY [facility] Administration L-Arginine/L-Glutamine/Calcium HMB 1 packet 11/13/22 08:00 11/22/22 08:17 Uriel (Unflavored) Packet PO 1 packet BIDCM [facility] Administration Magnesium Hydroxide 30 ml 11/12/22 17:15 Magnesium Hydroxide 30 Ml Udc PO .PRN X 1 PRN Constipation Mupirocin 1 applic 11/19/22 08:20 Mupirocin Ointment 22gm Tube TOPICAL 599,2199 PRN [facility] Protocol Nystatin 1 applic 11/12/22 22:00 11/22/22 06:38 Nystatin Powder 15gm Bottle TOPICAL Not Given 599,0 [facility] Protocol Pantoprazole Sodium 40 mg 11/13/22 06:00 11/22/22 06:37 Pantoprazole Sodium 40 Mg Tablet PO 40 mg DAILY [facility] Administration Potassium Chloride 20 meq 11/13/22 08:00 11/22/22 08:17 Potassium Chloride Oral Tablet 20 Meq PO 20 meq BIDCM SONG Administration Rizatriptan Benzoate 10 mg 11/12/22 17:15 Rizatriptan Benzoate 10 Mg Tablet PO DAILY PRN PRN MIGRAINE SYMPTOMS Senna/Docusate Sodium 2 tablet 11/12/22 18:00 11/22/22 06:38 Senna/Docusate Sodium 1 Tablet PO Not Given BID SONG Tramadol HCl 50 mg 11/12/22 17:15 11/14/22 04:37 Tramadol 50 Mg Tablet PO 50 mg Q6H PRN PRN Administration Pain 1-10 Problem List (Updated 11/20/22 @ 00:06 by Background Ravin) Pica (Acute) Leukopenia (Acute) Thrombocytopenia (Acute) History of open reduction and internal fixation (ORIF) procedure (Acute) Foot drop, left (Acute) Debility (Acute) 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) Vital Signs Temp Pulse Resp BP Pulse Ox O2 Del Method 96.3 F L 61 16 114/47 L 94 Room Air 11/21/22 08:52 11/22/22 06:43 11/21/22 22:45 11/22/22 06:43 11/21/22 22:45 11/21/22 22:45 Oxygen Delivery Method Room Air Weight: 104.837 kg Body Mass Index (BMI) 39.6 Sodium 141 mmol/L (136-145) 11/20/22 07:35 Potassium 4.0 mmol/L (3.5-5.1) 11/20/22 07:35 Chloride 109 mmol/L (98-107) H 11/20/22 07:35 Carbon Dioxide 26.0 mmol/L (21.0-32.0) 11/20/22 07:35 Anion Gap 6 (5-15) 11/20/22 07:35 BUN 25 mg/dL (7-18) H 11/20/22 07:35 Creatinine 0.88 mg/dL (0.55-1.02) 11/20/22 07:35 Est GFR (MDRD) Af Amer 83 mL/min (>60) 11/20/22 07:35 Est GFR (MDRD) Non-Af 69 mL/min (>60) 11/20/22 07:35 BUN/Creatinine Ratio 28.5 RATIO (10-20) H 11/20/22 07:35 Glucose 87 mg/dL (74-106) 11/20/22 07:35 Assessment/Plan: 1. Pain: Ibuprofen 400mg PO daily and tramadol 50mg Q6H PRN pain 1-10. Please continue to monitor pain, oversedation, GERD, renal function, bleeding, PRN medication use. Resident has had 1 dose of tramadol (generalized pain 5/10). 2. Bowel: senna/docusate 2 T PO BID, bisacodyl 10mg RC x 1 PRN constipation, MOM 30mL PO x 1 PRN constipation. Please continue to monitor for increase/decreased constipation, increased/decreased diarrhea, PRN medication use. Resident has taken 2 doses and refused all other doses for senna/docusate. Resident has not had any doses of bisacodyl or MOM. Resident has not had a documented bowel movement to date. Please consider stopping senna/docusate and adding a scheduled medication for constipation that the resident would be willing to take. Thanks. 3. GERD: pantoprazole 40mg PO daily and calcium carbonate 500mg PO BIDCM.? Please continue to monitor for s/s of GERD, educate on non-pharmacological means to prevent GERD symptoms, calcium (last 9mg/dL), C. diff infections (BEERs criteria) 4. DVT prophylaxis: enoxaparin 40mg SC Daily. Please continue to monitor for s/s of DVT, increased bleeding and bruising, renal function (last Scr: 0.88, CrCl: 55.04), H & H (Hgb: 11.8, Hct: 35.6 on 11/20) and platelets (last 143,000). 5. MS: amantadine 100mg PO BID and baclofen 30mg PO Q8H. Please continue to monitor for dizziness, insomnia, hallucinations, oversedation, muscle weakness.? 6. Migraine headaches: Rizatriptan 10mg PO daily PRN migraines. Please continue to monitor for frequency of Migraine headaches, PRN medication use. Resident has had 0 doses of rizatriptan to date.? 7. Hypertension: Bumetanide 2mg PO daily, Atenolol 50mg PO QAM, 75 PO QHS. Please continue to monitor BP (last 114/47 on 11/22), HR (last 61 on 11/22), Renal function (last Scr: 0.88, CrCl: 55.04). and potassium (last 4 mmol/L). 8. General Wellness: cyanocobalamin 1000mcg IM Q30D, Ergocalciferol 1.25 mg PO twice weekly (tuesday and ), potassium 20mEq PO BIDCM. Please continue to monitor potassium (last 4.0 on 11/20 ), HR (last 61 on 11/22) and vitamin D level (last 10/25/22). Please consider ordering a vitamin B12 level as the last level is from 10/24/2019. Thanks. 9. Skin integrity/irritation: Nystatin Powder 1 APL TOP BID, Calmoseptine 1 APL TOP BID, mupirocin 1 APL TOP BID. Please continue to monitor for skin redness/irritation/itching, s/s of worsening skin infection. 10. Osteopenia: calcitonin nasal spray 1 spray nasal daily. Please continue to monitor calcium. Assessment/Plan for indications treated with psychotropic medications: 1. Anxiety/spasms: Amitriptyline 100mg PO QHS and clonazepam 0.5mg PO QHS PRN spasms. Please consider GDR by 05/2023 if clinically appropriate. Please continue to monitor for oversedation, mental status, Falls/fractures (BEERs medications), QU[employer]ITATIVE CONSULTANT effects (BEERs medications), Delirium (BEERs medications). Medical chart and medication regimen reviewed. The following medication irregularities or issues were identified: *1. Cyanocobalamin 1000mcg IM Q30D. Please consider ordering a vitamin B12 level as the last level is from 10/24/2019. Thanks. *2. Amitriptyline 100mg PO QHS and clonazepam 0.5mg PO QHS PRN spasms. Please consider GDR by 05/2023 if clinically appropriate. *3. Senna/docusate 2 T PO BID, bisacodyl 10mg RC x 1 PRN constipation, MOM 30mL PO x 1 PRN constipation. Resident has taken 2 doses and refused all other doses for senna/docusate. Resident has not had any doses of bisacodyl or MOM. Resident has not had a documented bowel movement to date. Please consider stopping senna/docusate and adding a scheduled medication for constipation that the resident would be willing to take. Thanks. Documented by User: Dr. Richar Worthy MD 11/22/22 14:43 TCU RX Drug Regimen Review Date Date of Note:: 11/22/22
[2022-11-22 14:54] VITALS: BP 118/58; PULSE 63; RESP 17; TEMP 36.9; O2SAT 99
[2022-11-22] MEDS: Amitriptyline 100 MG Tablet PO (21:47)
[2022-11-22 21:50] VITALS: BP 140/63; PULSE 67
[2022-11-22] MEDS: clonazePAM 0.5 MG Tablet PO (21:55)
[2022-11-22] MEDS: Atenolol 50 MG Tablet 75 MG PO (21:56)
[2022-11-22 22:58] VITALS: PULSE 80; RESP 16; O2SAT 98
[2022-11-23] MEDS: Enoxaparin 40 MG/0.4 ML Syringe SC (06:33)
[2022-11-23] MEDS: Baclofen 10 MG Tablet 30 MG PO ×3 (06:33→21:13)
[2022-11-23] MEDS: Pantoprazole Sodium 40 MG Tablet PO (06:33)
[2022-11-23] MEDS: Ibuprofen 400 MG Tablet PO (06:34)
[2022-11-23] MEDS: Bumetanide 2 MG Tablet PO (06:34)
[2022-11-23] MEDS: Ergocalciferol 1.25 MG (50, 000 UNIT) Capsule PO (06:34)
[2022-11-23] MEDS: Amantadine 100 MG Capsule PO ×2 (06:35→17:50)
[2022-11-23] MEDS: Calcitonin-Salmon 1 SPRAY SPRAY NARES (06:35)
[2022-11-23] MEDS: Atenolol 50 MG Tablet PO (06:35)
[2022-11-23] MEDS: Juven (unflavored) Packet 1 PACKET PO ×2 (08:31→17:50)
[2022-11-23] MEDS: Calcium Carbonate 500 MG Tablet PO ×2 (08:31→17:50)
[2022-11-23] MEDS: Potassium Chloride Oral Tablet 20 MEQ PO ×2 (08:31→17:50)
[2022-11-23 09:14] VITALS: BP 123/64; PULSE 65; RESP 17; TEMP 36.3; O2SAT 95
[2022-11-23 11:00] VITALS: BMI 38.5
[2022-11-23 21:00] VITALS: O2SAT 95
[2022-11-23] MEDS: Atenolol 50 MG Tablet 75 MG PO (21:14)
[2022-11-23] MEDS: Amitriptyline 100 MG Tablet PO (21:14)
[2022-11-23 21:28] VITALS: BP 136/62; PULSE 68
[2022-11-24] MEDS: Baclofen 10 MG Tablet 30 MG PO (05:47)
[2022-11-24] MEDS: Bumetanide 2 MG Tablet PO (05:48)
[2022-11-24] MEDS: Pantoprazole Sodium 40 MG Tablet PO (05:48)
[2022-11-24] MEDS: Atenolol 50 MG Tablet PO (05:48)
[2022-11-24] MEDS: Ibuprofen 400 MG Tablet PO (05:48)
[2022-11-24] MEDS: Enoxaparin 40 MG/0.4 ML Syringe SC (05:49)
[2022-11-24] MEDS: Amantadine 100 MG Capsule PO (05:49)
[2022-11-24] MEDS: Calcitonin-Salmon 1 SPRAY SPRAY NARES (05:52)
[2022-11-24 06:10] VITALS: BP 119/53; PULSE 61
[2022-11-24] MEDS: Calcium Carbonate 500 MG Tablet PO (08:46)
[2022-11-24] MEDS: Potassium Chloride Oral Tablet 20 MEQ PO (08:47)
[2022-11-24 09:59] VITALS: PULSE 63; O2SAT 94
[2022-11-24 12:54] VITALS: BP 131/69; PULSE 57; RESP 16; TEMP 35.7; O2SAT 97
--- NOTE | 2022-11-24 14:48 | MDS.RN ---
Information for the mds was obtained from review of the clinical record, interview of resident, staff, and direct observation of resident's care.
== END 2022-11-24 12:30 | disposition home health service (06) | DRG 561 ==
PROVIDERS: Internal Medicine; Admitting Provider Family Medicine Geriatric Medicine; PCP Family Medicine; Visit Provider Family Medicine Geriatric Medicine
DX: S82.841D Displaced bimalleolar fracture of right lower leg, subsequent encounter for closed fracture with routine healing (principal); D69.6 Thrombocytopenia, unspecified; G35 Multiple sclerosis; F50.89 Other specified eating disorder; G62.9 Polyneuropathy, unspecified; I10 Essential (primary) hypertension; W19.XXXD Unspecified fall, subsequent encounter; K21.9 Gastro-esophageal reflux disease without esophagitis; Z87.891 Personal history of nicotine dependence; Z86.16 Personal history of COVID-19; M85.80 Other specified disorders of bone density and structure, unspecified site; Z79.01 Long term (current) use of anticoagulants; Z79.899 Other long term (current) drug therapy; E66.9 Obesity, unspecified; Z68.38 Body mass index [BMI] 38.0-38.9, adult
CPT/HCPCS: 36415; 73610; 80048; 82728; 83540; 83550; 85025; 97110; 97116; 97163; 97166; 97530; 97535; 97802; J3420

== ENCOUNTER → 2022-12-16 | Outpatient (CLI) | payer MEDICARE, OTHER, SELFPAY | END | disposition home or self-care (01) | PROVIDERS: PCP Family Medicine; Visit Provider Podiatrist | DX: L97.512 Non-pressure chronic ulcer of other part of right foot with fat layer exposed (principal) | CPT/HCPCS: 87070; 87075; 87205 ==

== ENCOUNTER → 2023-02-16 | Outpatient (CLI) | payer MEDICARE, OTHER, SELFPAY ==
[2023-02-16 18:13] LABS: Absolute Neutrophil Count 3.3 X10^3/uL (2.0-7.7); Basophil# 0.05 X10^3/uL; Eosinophil# 0.13 X10^3/uL; Eosinophils% 2.6 % (0-5); Hematocrit 40.5 % (37-47); Hemoglobin 12.9 g/dL (12.0-15.0); Lymphocyte % 17.9 % (19-41); Mean Corp Hgb Conc 31.9 g/dL (32-36); Mean Corpuscular Hgb 31.2 pg (27.0-32.0); Mean Corpuscular Volume 97.8 fL (81-99); Mean Platelet Vol. 12.3 fl (6.2-12.0); Monocyte# 0.67 X10^3/uL; Monocyte% 13.3 % (0-10); NRBC Flagged by Analyzer 0 % (0-5); Neutrophil # 3.27 X10^3/uL (2.7-7.7); Platelet Count 168 K/mm3 (150-450); RBC Distribution Width CV 13.3 % (11.6-14.6); RBC Distribution Width SD 47.9 fl (35.1-43.9); Red Blood Count 4.14 M/mm3 (4.2-5.4)
[2023-02-16 18:28] LABS: AST(SGOT) 20 U/L (15-37); Alanine Aminotransfer ALT/SGPT 24 U/L (13-56); Albumin, Serum 3.6 g/dL (3.2-5.0); Alkaline Phosphatase 142 U/L (45-117); Anion Gap 8 (5-15); BUN 16 mg/dL (7-18); BUN/Creat Ratio 16.3 RATIO (10-20); Chloride 108 mmol/L (98-107); Creatinine, Serum 0.98 mg/dL (0.55-1.02); EST Glomerular Filtration Rate 60 mL/min (>60); Est Glom Filt Rate - Afr Amer 73 mL/min (>60); Globulin 3.5 g/dL (2.2-4.2); Glucose 91 mg/dL (74-106); Potassium 3.7 mmol/L (3.5-5.1); Protein, Total 7.1 g/dL (6.4-8.2); Sodium Level 142 mmol/L (136-145)
[2023-02-20 02:07] LABS: Immunoglobulin A 125 mg/dL (87-352); Immunoglobulin E 6 IU/mL (6-495); Immunoglobulin G 877 mg/dL (586-1602); Immunoglobulin M 11 mg/dL (26-217)
== END | disposition home or self-care (01) ==
LOC: MTLAB 14:53
PROVIDERS: PCP Family Medicine; Referring Provider Nurse Practitioner Gerontology; Visit Provider Nurse Practitioner Gerontology
DX: Z79.899 Other long term (current) drug therapy (principal)
CPT/HCPCS: 36415; 80053; 82784; 82785; 85025

== ENCOUNTER → 2023-04-29 | Outpatient (CLI) | payer MEDICARE, OTHER, SELFPAY ==
--- NOTE | 2023-04-29 15:04 | VDLE_ITS ---
Reason For Study: localized edema RIGHT LEFT GSV is normal. GSV is normal. CFV is compressible, spontaneous, phasic, CFV is compressible, spontaneous, phasic, competent and demonstrates normal competent, and demonstrates normal augmentation. augmentation. FV is compressible, spontaneous, phasic, FV is compressible, spontaneous, phasic, competent and demonstrates normal competent and demonstrates normal augmentation. augmentation. POP V is compressible, spontaneous, phasic, POP V is compressible, spontaneous, phasic, competent and demonstrates normal competent and demonstrates normal augmentation. augmentation. T/P Trunk is compressible. T/P Trunk is compressible. PTV is compressible. PTV is compressible. RT PerV is compressible. LT PerV is compressible. Procedure This is a venous duplex using B-mode, color flow and spectral Doppler. Exam performed in department. The study was technically difficult. Due to multiple sclerosis & obesity. A preliminary report was called and/or faxed to Isadora Martinez [employer] @ [phone] @ 03:45 pm. VL/Venous Duplex US - Rolando Extrem Interpretation Summary Deep veins of the lower extremities are bilaterally patent and compressible seg mentally. There is no evidence of deep vein thrombosis on either side. Valvular competence appears in tact within the proximal deep venous systems bilaterally. The great saphenous veins appear bila terally patent and compressible segmentally. Ordering Physician: Isadora Martinez Referring Physician: Walt La Performed By: Maria Luisa Tolentino, PARICS, RVT
== END | disposition home or self-care (01) ==
LOC: CVS 15:02
PROVIDERS: PCP Family Medicine; Referring Provider Nurse Practitioner Family; Visit Provider Nurse Practitioner Family
DX: R60.0 Localized edema (principal)
CPT/HCPCS: 93970

== ENCOUNTER → 2023-08-04 | Outpatient (CLI) | payer MEDICARE, OTHER, SELFPAY ==
[2023-08-04 17:42] LABS: Absolute Lymphocyte Count 0.69 X10^3/uL (0.83-4.51); Absolute Neutrophil Count 3.1 X10^3/uL (2.0-7.7); Basophil# 0.07 X10^3/uL; Basophil% 1.5 % (0-1); Eosinophil# 0.11 X10^3/uL; Eosinophils% 2.4 % (0-5); Hematocrit 42.8 % (37-47); Hemoglobin 13.8 g/dL (12.0-15.0); Lymphocyte # 0.69 X10^3/ul (0.83-4.51); Lymphocyte % 15.3 % (19-41); Mean Corp Hgb Conc 32.2 g/dL (32-36); Mean Corpuscular Hgb 31.4 pg (27.0-32.0); Mean Corpuscular Volume 97.3 fL (81-99); Mean Platelet Vol. 11.5 fl (6.2-12.0); Monocyte# 0.52 X10^3/uL; Monocyte% 11.5 % (0-10); NRBC Flagged by Analyzer 0 % (0-5); Neutrophil # 3.12 X10^3/uL (2.7-7.7); Neutrophil % 69.1 % (47-70); Platelet Count 158 K/mm3 (150-450); RBC Distribution Width CV 13.2 % (11.6-14.6); RBC Distribution Width SD 47.2 fl (35.1-43.9); White Blood Count 4.5 K/mm3 (4.4-11.0)
[2023-08-04 17:59] LABS: Vitamin D,25 Hydroxy 47.7 ng/mL
[2023-08-04 18:03] LABS: AST(SGOT) 18 U/L (15-37); Alanine Aminotransfer ALT/SGPT 25 U/L (13-56); Albumin, Serum 3.6 g/dL (3.2-5.0); Alkaline Phosphatase 150 U/L (45-117); Anion Gap 9 (5-15); BUN 21 mg/dL (7-18); BUN/Creat Ratio 15.1 RATIO (10-20); Calcium,Total 8.8 mg/dL (8.5-10.1); Chloride 109 mmol/L (98-107); Cholesterol 213 mg/dL (200); Creatinine, Serum 1.39 mg/dL (0.55-1.02); EST Glomerular Filtration Rate 40 mL/min (>60); Est Glom Filt Rate - Afr Amer 49 mL/min (>60); Globulin 3.7 g/dL (2.2-4.2); Glucose 80 mg/dL (74-106); High Density Lipoprotein 83 mg/dL; Potassium 3.7 mmol/L (3.5-5.1); Protein, Total 7.3 g/dL (6.4-8.2); Sodium Level 143 mmol/L (136-145); Thyroid Stim Hormone (TSH) 1.46 uIU/mL (0.358-3.74); Triglycerides 81 mg/dL; Very Low Density Lipoprotein 16 mg/dL (5-40)
[2023-08-12 05:07] LABS: Immunoglobulin A 141 mg/dL (87-352); Immunoglobulin E 7 IU/mL (6-495); Immunoglobulin G 853 mg/dL (586-1602); Immunoglobulin M 11 mg/dL (26-217)
== END | disposition home or self-care (01) ==
LOC: MTLAB 15:54
PROVIDERS: PCP Family Medicine; Referring Provider Family Medicine; Visit Provider Family Medicine
DX: Z79.899 Other long term (current) drug therapy (principal); I10 Essential (primary) hypertension; R53.83 Other fatigue; E55.9 Vitamin D deficiency, unspecified
CPT/HCPCS: 36415; 80053; 80061; 82306; 82784; 82785; 84443; 85025

== ENCOUNTER → 2023-09-19 | Outpatient (CLI) | payer MEDICARE, OTHER, SELFPAY ==
[2023-09-19 17:31] LABS: Absolute Lymphocyte Count 0.96 X10^3/uL (0.83-4.51); Absolute Neutrophil Count 3.6 X10^3/uL (2.0-7.7); Basophil# 0.06 X10^3/uL; Basophil% 1.1 % (0-1); Eosinophil# 0.14 X10^3/uL; Eosinophils% 2.6 % (0-5); Hematocrit 40.6 % (37-47); Hemoglobin 13.3 g/dL (12.0-15.0); Lymphocyte # 0.96 X10^3/ul (0.83-4.51); Lymphocyte % 18.1 % (19-41); Mean Corp Hgb Conc 32.8 g/dL (32-36); Mean Corpuscular Hgb 31.7 pg (27.0-32.0); Mean Corpuscular Volume 96.7 fL (81-99); Mean Platelet Vol. 11.7 fl (6.2-12.0); Monocyte# 0.53 X10^3/uL; NRBC Flagged by Analyzer 0 % (0-5); Neutrophil # 3.59 X10^3/uL (2.7-7.7); Platelet Count 175 K/mm3 (150-450); RBC Distribution Width CV 13.4 % (11.6-14.6); RBC Distribution Width SD 47.8 fl (35.1-43.9); White Blood Count 5.3 K/mm3 (4.4-11.0)
[2023-09-19 17:58] LABS: ALB/GLOB Ratio 1.1 RATIO (0.9-2.4); AST(SGOT) 17 U/L (15-37); Alanine Aminotransfer ALT/SGPT 23 U/L (13-56); Albumin, Serum 3.8 g/dL (3.2-5.0); Alkaline Phosphatase 137 U/L (45-117); Anion Gap 6 (5-15); BUN 15 mg/dL (7-18); BUN/Creat Ratio 12.6 RATIO (10-20); Calcium,Total 9.1 mg/dL (8.5-10.1); Chloride 108 mmol/L (98-107); Creatinine, Serum 1.19 mg/dL (0.55-1.02); EST Glomerular Filtration Rate 48 mL/min (>60); Est Glom Filt Rate - Afr Amer 58 mL/min (>60); Globulin 3.4 g/dL (2.2-4.2); Glucose 102 mg/dL (74-106); Potassium 3.7 mmol/L (3.5-5.1); Protein, Total 7.2 g/dL (6.4-8.2); Sodium Level 142 mmol/L (136-145)
== END | disposition home or self-care (01) ==
LOC: MTLAB 16:14
PROVIDERS: PCP Family Medicine; Referring Provider Internal Medicine; Visit Provider Internal Medicine
DX: Z79.899 Other long term (current) drug therapy (principal)
CPT/HCPCS: 36415; 80053; 85025

== ENCOUNTER → 2024-02-07 | Outpatient (CLI) | payer MEDICARE, OTHER, SELFPAY ==
[2024-02-07 17:44] LABS: Absolute Lymphocyte Count 0.98 X10^3/uL (0.83-4.51); Absolute Neutrophil Count 3.3 X10^3/uL (2.0-7.7); Basophil# 0.05 X10^3/uL; Eosinophil# 0.17 X10^3/uL; Eosinophils% 3.3 % (0-5); Hematocrit 41.3 % (37-47); Hemoglobin 13.2 g/dL (12.0-15.0); Lymphocyte # 0.98 X10^3/ul (0.83-4.51); Lymphocyte % 18.9 % (19-41); Mean Corpuscular Hgb 30.6 pg (27.0-32.0); Mean Corpuscular Volume 95.6 fL (81-99); Mean Platelet Vol. 11.4 fl (6.2-12.0); Monocyte# 0.65 X10^3/uL; Monocyte% 12.5 % (0-10); NRBC Flagged by Analyzer 0 % (0-5); Neutrophil # 3.33 X10^3/uL (2.7-7.7); Neutrophil % 64.1 % (47-70); Platelet Count 156 K/mm3 (150-450); RBC Distribution Width CV 13.2 % (11.6-14.6); RBC Distribution Width SD 46.7 fl (35.1-43.9); Red Blood Count 4.32 M/mm3 (4.2-5.4); White Blood Count 5.2 K/mm3 (4.4-11.0)
[2024-02-07 18:28] LABS: ALB/GLOB Ratio 1.1 RATIO (0.9-2.4); AST(SGOT) 15 U/L (15-37); Alanine Aminotransfer ALT/SGPT 19 U/L (13-56); Albumin, Serum 3.7 g/dL (3.2-5.0); Alkaline Phosphatase 142 U/L (45-117); Anion Gap 6 (5-15); BUN 18 mg/dL (7-18); BUN/Creat Ratio 14.4 RATIO (10-20); Calcium,Total 9.1 mg/dL (8.5-10.1); Chloride 110 mmol/L (98-107); Creatinine, Serum 1.25 mg/dL (0.55-1.02); EST Glomerular Filtration Rate 45 mL/min (>60); Est Glom Filt Rate - Afr Amer 55 mL/min (>60); Globulin 3.3 g/dL (2.2-4.2); Glucose 89 mg/dL (74-106); Potassium 3.5 mmol/L (3.5-5.1); Sodium Level 141 mmol/L (136-145)
[2024-02-09 08:13] LABS: Immunoglobulin G 872 mg/dL (586-1602)
== END | disposition home or self-care (01) ==
LOC: MTLAB 15:03
PROVIDERS: PCP Family Medicine; Referring Provider Family Medicine; Visit Provider Family Medicine
DX: N18.31 Chronic kidney disease, stage 3a (principal); Z79.899 Other long term (current) drug therapy
CPT/HCPCS: 36415; 80053; 82784; 85025

== ENCOUNTER → 2024-05-02 | Outpatient (CLI) | payer MEDICARE, OTHER, SELFPAY ==
--- NOTE | 2024-05-02 16:26 | MRI_ITS ---
EXAM: MR HEAD WITHOUT AND WITH INTRAVENOUS CONTRAST CLINICAL INDICATION: MS TECHNIQUE: Multiplanar and multisequence MR images of the brain were obtained without and with intravenous contrast. CONTRAST: IV 17ml clariscan COMPARISON: MR Head dated 10/06/2020 FINDINGS: BRAIN AND EXTRA-AXIAL SPACES: Multiple foci of abnormal T2 signal intensity again seen along the periventricular and peripheral white matter and within the junction of the right putamen and external. There has been no significant interval change from prior exam. No hemorrhage or mass effect. No abnormal contrast enhancement. Posterior fossa is normal. Basilar cisterns are patent. SELLA: Normal. Normal sella turcica, pituitary gland, infundibular stalk, optic chiasm and hypothalamus. AUDITORY SYSTEM: Normal. The internal auditory canals are patent. BONES/JOINTS: Intact calvarium. SINUSES: Mucosal thickening within the maxillary and ethmoid sinuses. Residual 2.2 cm mucous retention cyst within the right maxillary sinus. MASTOID AIR CELLS: Clear. ORBITS: Unremarkable as visualized. Both globes, extraocular muscles, optic nerves and retrobulbar fat appear unremarkable. VASCULATURE: Unremarkable as visualized. Normal flow voids in the major intracranial circulation. MRI/Brain W/WO Contrast IMPRESSION: 1. No acute intracranial abnormality. 2. Stable white matter regions compatible with the patient''s history of multiple sclerosis. Electronically Signed: Benjamin Flowers MD at 13:01 EST ,
--- NOTE | 2024-05-02 16:26 | MRI_ITS ---
EXAM: MR THORACIC SPINE WITHOUT AND WITH INTRAVENOUS CONTRAST CLINICAL INDICATION: MS TECHNIQUE: Multiplanar and multisequence MR images of the thoracic spine without and with intravenous contrast. CONTRAST: IV 17ml Clariscan COMPARISON: MR Thoracic Spine dated 05/13/2014 FINDINGS: VERTEBRAE: No fracture. No bone marrow edema. Multilevel facet arthropathy. Normal alignment. There is preservation of the normal thoracic kyphosis. No scoliosis. DISCS/SPINAL CANAL/NEURAL FORAMINA: Normal. Normal disc height and morphology. Normal spinal canal and neuroforamina. SPINAL CORD: Increased T2 signal intensity within the thoracic cord at T3 and T4 levels associated with cord atrophy again seen. Stable focal areas of increased T2 signal intensity within the cord at T2 and within the conus medullaris at the T11 level. No abnormal contrast enhancement. SOFT TISSUES: Normal. MRI/Spine Thoracic W/WO Contrast IMPRESSION: No significant interval change. Stable cord lesions at the upper thoracic level and at the conus medullaris. Electronically Signed: Benjamin Flowers MD at 14:00 EST ,
[2024-05-02 16:52] LABS: CREATININE FINGERSTICK < 1.0 mg/dL (0.55-1.02); EGFR FINGERSTICK > 60.0000 mL/min (>60)
== END | disposition home or self-care (01) ==
PROVIDERS: PCP Family Medicine; Referring Provider Nurse Practitioner Gerontology; Visit Provider Nurse Practitioner Gerontology
DX: G35 Multiple sclerosis (principal)
CPT/HCPCS: 70553; 72157

== ENCOUNTER → 2024-05-10 | Outpatient (CLI) | payer OTHER, MEDICARE, SELFPAY ==
--- NOTE | 2024-05-10 15:37 | BD_ITS ---
STUDY: DUAL ENERGY X-RAY ABSORPTIOMETRY / DXA REASON FOR EXAM: Female, 68 years old. V76.12ScreeningBONE DENSITY REASON FOR EXAM TECHNIQUE: Bone Mineral Density (BMD) measurements of lumbar spine and bilateral hips were obtained. COMPARISON: November 06, 2019 FINDINGS: Lumbar Spine (L1-L4): g/cm2 (0.93) / T-score (-0.6) / Z-score (1.3) Findings are suggestive of normal BMD with a fracture risk. Left Femur Total: g/cm2 (0.689) / T-score (-2.1) / Z-score (-0.7) Left Femoral Neck: g/cm2 (0.583) / T-score (-2.4) / Z-score (-0.7) Right Femur Total: g/cm2 (0.653) / T-score (-2.4) / Z-score (-1.0) Right Femoral Neck: g/cm2 (0.585) / T-score (-2.4) / Z-score (minus 0.7) The T-Scores on the most recent prior examination were: Lumbar Spine (L1-L4): There has been decrease of bone density since the previous examination. BD/Dexa Bone Density Study IMPRESSION: The patient is considered normal spine and osteopenic hips bilaterally as outlined below according to World Marshall Organization (WHO) criteria with a increased hip fracture risk. There has been decreased of bone density since the previous examination. Reference Information: The T-score is the number of standard deviations above or below the standard which is normal for young adults at their peak bone mineral density. The World Health Organization (WHO) interprets the T-scores as follows: Above -1 Normal bone density Between -1 and -2.5 Osteopenia Equal to / or below -2.5 Osteoporosis As a practical clinical guideline, osteopenia may be graded as follows: Mild -1 through -1.5 Moderate -1.6 through -2.0 Severe -2.1 through -2.4 The Z-score is the number of standard deviations above or below age-matched controls. A Z-score of less than -1.5 would be considered abnormal. References: 1. NIH Osteoporosis and Related Bone Diseases www osteo.org 2. International Society for Clinical Densitometry www iscd.org 3. National Osteoporosis Foundation www nof.org Electronically Signed: Andrzej Rushing MD at 21:45 EST ,
--- NOTE | 2024-05-10 15:38 | BI_ITS ---
MAMMOGRAPHY - BILATERAL SCREENING 3-D TOMOSYNTHESIS REASON FOR EXAM: Female, 68 years old. SCREENING PERTINENT HISTORY: No significant family history. TECHNIQUE: 2-D mammograms and 3-D Tomosynthesis of the breast (s) were performed. CAD was performed. COMPARISON: 11/06/2019 FINDINGS: The breast composition is heterogeneously dense that can obscure small breast masses. Scattered benign calcifications are seen. No dense spiculated masses or suspicious microcalcifications are identified. No architectural distortion is identified. There is no skin thickening or retraction. There has been no significant change since the prior study. BI/SCRN MAMM (CAD)W/CASIMIRO BILAT IMPRESSION: No mammographic signs of malignancy. Routine yearly mammograms recommended. ASSESSMENT CATEGORY: BIRADS Category 1: Negative. A letter regarding these results will be sent to the patient by the facility within 30 days. FOLLOW UP RECOMMENDATION: Yearly follow up mammogram recommended. (A) Approximately 10% of breast cancers are not detected by mammography. A normal mammogram should not delay biopsy of a clinically suspicious abnormality. Electronically Signed: James Elaine MD at 19:32 EST ,
== END | disposition home or self-care (01) ==
PROVIDERS: PCP Family Medicine; Referring Provider Family Medicine; Visit Provider Family Medicine
DX: Z12.31 Encounter for screening mammogram for malignant neoplasm of breast (principal); M81.0 Age-related osteoporosis without current pathological fracture
CPT/HCPCS: 77063; 77067; 77080

== ENCOUNTER → 2024-08-14 | Outpatient (CLI) | payer MEDICARE, OTHER, SELFPAY ==
[2024-08-14 18:15] LABS: Absolute Lymphocyte Count 0.99 X10^3/uL (0.83-4.51); Absolute Neutrophil Count 3.8 X10^3/uL (2.0-7.7); Basophil# 0.06 X10^3/uL; Basophil% 1.1 % (0-1); Eosinophil# 0.15 X10^3/uL; Eosinophils% 2.7 % (0-5); Hematocrit 43.7 % (37-47); Hemoglobin 14.6 g/dL (12.0-15.0); Lymphocyte # 0.99 X10^3/ul (0.83-4.51); Lymphocyte % 17.6 % (19-41); Mean Corp Hgb Conc 33.4 g/dL (32-36); Mean Corpuscular Hgb 31.7 pg (27.0-32.0); Mean Platelet Vol. 12.2 fl (6.2-12.0); Monocyte# 0.59 X10^3/uL; Monocyte% 10.5 % (0-10); NRBC Flagged by Analyzer 0 % (0-5); Neutrophil # 3.83 X10^3/uL (2.7-7.7); Neutrophil % 67.9 % (47-70); Platelet Count 135 K/mm3 (150-450); RBC Distribution Width CV 13.7 % (11.6-14.6); RBC Distribution Width SD 47.4 fl (35.1-43.9); White Blood Count 5.6 K/mm3 (4.4-11.0)
[2024-08-14 21:36] LABS: ALB/GLOB Ratio 1.5 RATIO (0.9-2.4); AST(SGOT) 22 U/L (<=31); Alanine Aminotransfer ALT/SGPT 16 U/L (<=34); Albumin, Serum 4.4 g/dL (3.4-4.8); Alkaline Phosphatase 149 U/L (35-104); Anion Gap 18 (5-15); BUN 22 mg/dL (4-19); BUN/Creat Ratio 18.5 RATIO (10-20); Calcium,Total 9.3 mg/dL (7.6-11.0); Carbon Dioxide 19.5 mmol/L (21.0-32.0); Chloride 106 mmol/L (98-108); Creatinine, Serum 1.17 mg/dL (0.70-1.20); EST Glomerular Filtration Rate 51 (>60); Glucose 98 mg/dL (70-99); Potassium 3.5 mmol/L (3.3-5.1); Protein, Total 7.5 g/dL (5.9-8.4); Sodium Level 143 mmol/L (133-145); Total Bilirubin 0.31 mg/dL (0.00-1.30)
[2024-08-16 10:08] LABS: Immunoglobulin G 1015 mg/dL (586-1602)
== END | disposition home or self-care (01) ==
LOC: MTLAB 15:16
PROVIDERS: PCP Family Medicine; Referring Provider Nurse Practitioner Gerontology; Visit Provider Nurse Practitioner Gerontology
DX: G35 Multiple sclerosis (principal); Z79.899 Other long term (current) drug therapy
CPT/HCPCS: 36415; 80053; 82784; 85025

== ENCOUNTER → 2024-08-20 | Outpatient (CLI) | payer MEDICARE, OTHER, SELFPAY ==
--- NOTE | 2024-08-20 14:05 | VDLE_ITS ---
Reason For Study Reason For Study: Bilateral leg edema RIGHT LEFT CFV is compressible, spontaneous, phasic, competent CFV is compressible, spontaneous, phasic, competent, and demonstrates normal augmentation. and demonstrates normal augmentation. FV is compressible, spontaneous, phasic, competent FV is compressible, spontaneous, phasic, competent and demonstrates normal augmentation. and demonstrates normal augmentation. POP V is compressible, spontaneous, phasic, competent POP V is compressible, spontaneous, phasic, competent and demonstrates normal augmentation. and demonstrates normal augmentation. T/P Trunk is compressible. T/P Trunk is compressible. PTV is compressible. PTV is compressible. RT PerV is compressible. LT PerV is compressible. SFJ is competent and measures 0.69 cm. SFJ is competent and measures 0.85 cm. GSV proximal thigh measures 0.62 x 0.61 cm. GSV proximal thigh measures 0.42 x 0.42 cm. GSV at knee measures 0.46 x 0.45 cm. GSV at knee measures 0.40 x 0.41 cm. GSV is competent throughout. GSV is competent throughout. SSV mid calf is competent and measures 0.21 x 0.25 ASV proximal calf is INCOMPETENT for greater than 0.5 cm. seconds and measures 0.25 x 0.26 cm. Procedure SSV mid calf is competent and measures 0.20 x 0.21 This is a venous duplex using B-mode, color flow and cm. spectral Doppler. Exam performed in department. Patient was scanned in reverse Trendelenburg position during reflux assessment. VL/Venous Duplex US - Rolando Extrem Interpretation Summary Deep veins of the bilateral lower extremities are patent and compressible segme ntally. There is no evidence of bilateral lower extremity deep vein thrombosis. The bilateral great saphenous veins appea r patent and compressible segmentally. Positive for reflux in the left accessory saphenous vein in calf. Ordering Physician: Walt La Referring Physician: Walt La Performed By: Krystal Perea RVT
== END | disposition home or self-care (01) ==
LOC: CVS 14:05
PROVIDERS: PCP Family Medicine; Referring Provider Family Medicine; Visit Provider Family Medicine
DX: R60.0 Localized edema (principal)
CPT/HCPCS: 93970

== ENCOUNTER 2024-10-06 20:59 | Emergency (ER) | payer MEDICARE, OTHER, SELFPAY ==
[2024-10-06 21:00] VITALS: BP 165/77; PULSE 77; RESP 16; TEMP 36.4; O2SAT 98
[2024-10-06 21:21] VITALS: BMI 39.0
[2024-10-06 22:00] VITALS: BP 134/67; PULSE 70; RESP 16; O2SAT 97
--- NOTE | 2024-10-06 22:00 | EKG12_ITS ---
Test Reason : PALPS Blood Pressure : */* mmHG Vent. Rate : 77 BPM Atrial Rate : 77 BPM P-R Int : 156 ms QRS Dur : 94 ms QT Int : 398 ms P-R-T Axes : 51 39 26 degrees QTcB Int : 450 ms Normal sinus rhythm MINOR Nonspecific ST abnormality Abnormal ECG Confirmed by Luis Hay ([id number]), assignment desk editor TIMA SHIN ([id number]) on 10/15/2024 1:03:36 PM Referred By: Confirmed By: Luis Hay
[2024-10-06] MEDS: Ketorolac 15 MG/ML Vial IV (22:08)
[2024-10-06] MEDS: Lorazepam 2 MG/ML WCH Syringe 1 MG IV (22:08)
[2024-10-06 22:14] LABS: Absolute Neutrophil Count 6.6 X10^3/uL (2.0-7.7); Basophil# 0.06 X10^3/uL; Basophil% 0.7 % (0-1); Eosinophil# 0.17 X10^3/uL; Eosinophils% 1.9 % (0-5); Hematocrit 39.8 % (37-47); Hemoglobin 13.1 g/dL (12.0-15.0); Lymphocyte % 11.2 % (19-41); Mean Corp Hgb Conc 32.9 g/dL (32-36); Mean Corpuscular Hgb 31.7 pg (27.0-32.0); Mean Corpuscular Volume 96.4 fL (81-99); Mean Platelet Vol. 11.1 fl (6.2-12.0); Monocyte# 1.08 X10^3/uL; Monocyte% 12.1 % (0-10); NRBC Flagged by Analyzer 0 % (0-5); Neutrophil # 6.61 X10^3/uL (2.7-7.7); Neutrophil % 73.7 % (47-70); Platelet Count 153 K/mm3 (150-450); RBC Distribution Width CV 13.6 % (11.6-14.6); RBC Distribution Width SD 48.6 fl (35.1-43.9); Red Blood Count 4.13 M/mm3 (4.2-5.4)
--- NOTE | 2024-10-06 22:19 | EDS_ITS ---
HPI History of Present Illness Chief Complaint: Palpitations Informant: patient and spouse/S.O. Narrative Narrative: Patient is a 68-year-old female with relatively complex medical history including MS, chronic pain, thrombocytopenia, ulcerative pyoderma gangrenosum presenting with headache and left-sided neck pain. She states that she woke up this morning with what felt like a developing migraine headache that started pain in the left side of her neck that moved to her left shoulder. She took a tramadol and Imitrex with mild improvement of her headache but the neck and shoulder pain persisted. Pain is worse with movement of her neck and shoulder. She denies any associated injury. Denies any rash. Has some chronic tingling of her hand but attributes that to carpal tunnel and has no acute change in that today. Denies any associated vision changes, speech changes or weakness. Denies any chest pain. Did tell triage that she had an episode of palpitations in her chest but then goes on to tell me that happens for her to time to time and it is not an acute thing today. Patient did have an infusion for her MS on , 3 days ago. She also received steroids at this time. The medication was Ocrevus. She states she has had this infusion before. She is not sure if this is a side effect. Follows with neurology through the [facility] in [place]. No other acute complaints at this time. Does note that she has chronic edema and has been slightly worse recently and she had some pressure blisters but those have been improving. She denies any shortness of breath or difficulty breathing. [facility] Medical History History of migraine headaches Bimalleolar avulsion fracture of right ankle Osteopenia History of gastric polyp Bimalleolar fracture of right ankle Anxiety Difficulty swallowing History of GI bleed Gastric reflux Shortness of breath on exertion Former smoker History of stress test Hypertension HTN (hypertension) Acid reflux Multiple sclerosis COVID-19 Peripheral neuropathy Exacerbation of multiple sclerosis Home Medications ?Medication ?Instructions ?Recorded ?Last Taken ?Type amitriptyline 100 mg tablet 100 mg PO QHS DEPRESSION 0 08/04/14 11/11/22 History atenolol 50 mg tablet 50 mg PO DAILY BLOOD PRESSUR E 08/04/14 11/12/22 History atenolol 50 mg tablet 75 mg PO QHS BLOOD PRESSURE 08/04/14 11/11/22 History baclofen 20 mg tablet 30 mg PO TID MS 08/04/14 History cholecalciferol (vitamin D3) 1,250 50,000 unit PO TUTH Supplement 08/04/14 11/11/22 History mcg (50,000 unit) capsule cyanocobalamin (vitamin B-12) 100 mcg IM Q30D SUPPLEME NT 08/04/14 10/18/22 10:00 History 1,000 mcg/mL injection solution ibuprofen 200 mg tablet 400 mg PO DAILY PAIN 5 11/12/22 History amantadine HCl 100 mg capsule 100 mg PO BID SPASMS 11/12/22 History bumetanide 2 mg tablet 2 mg PO DAILY fluid pill #1 TAB 11/12/22 11/12/22 Rx clonazepam 0.5 mg tablet 0.5 mg PO QHS PRN Spasms 30 days 11/17/22 Unknown Rx #30 tabs potassium chloride 20 mEq 20 meq PO BIDCM 30 days #60 tabs 11/17/22 Unknown Rx tablet,extended release(part/cryst) (Klor-Con M) tramadol 50 mg tablet 50 mg PO Q6H PRN PRN Pain 1- 10 7 11/17/22 Unknown Rx days #28 tabs mupirocin 2 % topical ointment 1 applic topical 0600,2 200 PRN 10/06/24 Unknown History blisters omeprazole 20 mg capsule,delayed 20 mg PO BID 10/06/24 Unknown History release Allergy/AdvReac Type Severity Reaction Status Date / Time adhesive AdvReac RED Verified 10/06/24 21:00 amlodipine besylate (From AdvReac Nausea Verified 10/06/24 21:00 Lotrel) benazepril HCl (From Lotrel) AdvReac Nausea Verified 10/06/24 21:00 codeine AdvReac Nausea Verified 10/06/24 21:00 latex AdvReac RED Verified 10/06/24 21:00 Penicillins AdvReac Nausea Verified 10/06/24 21:00 Family History Brother Diabetes Heart disease Kidney disease Cancer Mother Diabetes Hypertension Thyroid disorder VTE (venous thromboembolism) Son VTE (venous thromboembolism) Surgical History History of open reduction and internal fixation (ORIF) procedure History of colonoscopy History of surgical procedure on mouth History of skin surgery History of hysterectomy History of cataract surgery Social History household members: spouse housing: house pets and animals: Yes Smoking Status: Former smoker pack-years: 35 Tobacco: How many years used: 35 how long ago did patient quit smoking: quit smoking in 2008 and started as a teenager. alcohol intake: never substance use type: does not use additional social history: uses ibuprofen daily ROS ROS ED Constitutional Constitutional ED: Denies chills or fever(s) Eyes Eyes: Denies blurry vision or change in vision ENT ENT ED: Denies sore throat Cardiovascular Cardiovascular: Denies chest pain Respiratory/Chest Respiratory/Chest: Denies cough or dyspnea Gastrointestinal Gastrointestinal: Denies abdominal pain, nausea or vomiting Musculoskeletal Musculoskeletal: Reports myalgias, neck pain and other Details: left shoulder pain . Leg swelling - chronic Integumentary Denies rash Neurologic Neurologic: Reports headache(s); Denies paresthesias or weakness Psychiatric Psychiatric: Denies anxiety Hematologic/Lymphatic Hematologic/Lymphatic: Denies easy bleeding or easy bruising EXAM Physical Exam Const Vital Signs: 10/06/24 21:00 10/06/24 21:23 10/06/24 22:00 Temperature 97.6 F L Temperature Source Oral Pulse Rate 77 70 Respiratory Rate 16 16 Respiratory Effort Normal Non-Labored Blood Pressure 165/77 H 134/67 H Blood Pressure Mean 106 89 Pulse Ox 98 97 Oxygen Delivery Method Room Air Room Air Positive well nourished and well developed General Appearance ED: well developed and NAD HEENT Reports TM's clear and moist mucous membranes Negative for trauma Tympanic Membrane ED: Yes TM's clear Eyes PERRL Neck supple and no JVD Neck Narrative: Left lateral tenderness to palpation and muscle spasm. Mild torticollis present. No midline neck tenderness. Normal phonation. No JVD present. No lymphadenopathy present. Chest Wall inspection of chest normal and palpation of chest normal Resp normal respiratory effort and clear to auscultation bilaterally Cardio regular rate, regular rhythm and no murmurs GI normal to inspection, nondistended, normoactive bowel sounds Back/Spine Back/Spine Narrative: Mild tenderness palpation of the left trapezius. Extremity normal to inspection Extremity Narrative: Pain edema of the lower extremities?chronic appearing. No open wounds at this time. No obvious deformity of extremities. Normal range of motion. General Extremety ED: Yes edema General Extremity: edema Neuro oriented x3 Sensorium / Orientation: alert Motor Exam: general weakness Psych mental status grossly normal Skin no rashes or lesions noted and no wounds MDM MDM MDM Narrative Medical decision making narrative: Patient evaluated for left-sided neck pain and shoulder pain that started today with associated migraine headache. Does have history of migraines. Has history of multiple spasms associated with MS as well. On exam patient has muscle spasm of the left neck and into the trapezius and exam is most consistent with a torticollis. She did report some palpitations but that is actually more of a chronic issue. EKG does not show any acute arrhythmia or ischemic changes. Will check some basic labs to ensure no significant electrolyte normalities or significant leukocytosis suggestive of a more severe process. She does not have any temporal tenderness and low suspicion for giant cell arteritis. She has normal phonation and swallowing. Low suspicion for any mass or space- occupying lesion in the soft tissue neck. No overlying skin changes consistent with infection/abscess or cellulitis. Lab work largely normal. Patient symptomatically treated with IV Toradol and IV Ativan. On repeat evaluation she is resting. She is much more comfortable she states. She has improved range of motion of her neck. Her does state that she tends to fall asleep in her chair and her head will roll to the left. He questions if this could be contribute to her pain. I did state is quite possible. As patient already has prescription for clonazepam and baclofen I do not think she needs further prescriptions for muscle spasms. She will follow-up with her primary care doctor and neurologist. Is given return precautions. Discharged home in stable condition. Lab Data Attestation: I reviewed the patient's lab results. Labs: Laboratory Results - last 24 hr 10/06/24 22:05 WBC 9.0 RBC 4.13 L Hgb 13.1 Hct 39.8 MCV 96.4 MCH 31.7 MCHC 32.9 RDW Std Deviation 48.6 H RDW Coeff of Caty 13.6 Plt Count 153 MPV 11.1 Immature Gran % (Auto) 0.400 Neut % (Auto) 73.7 H Lymph % (Auto) 11.2 L Blaine % (Auto) 12.1 H Eos % (Auto) 1.9 Baso % (Auto) 0.7 Absolute Neuts (auto) 6.6 Absolute Lymphs (auto) 1.00 Nucleated RBC % 0 Sodium 144 Potassium 3.3 Chloride 105 Carbon Dioxide 27.1 Anion Gap 13 BUN 16 Creatinine 1.00 Estim Creat Clear Calc 63.89 Est GFR (MDRD) Non-Af 62 BUN/Creatinine Ratio 16.3 Glucose 104 H Calcium 9.2 Magnesium 1.9 Rhythm Strip Rhythm Strip: Sinus Rhythm Rate: 77 Ectopy: None EKG Initial EKG: Attestation: I personally reviewed and interpreted this EKG as follows: Interpretation: Sinus Rhythm Comments: Normal sinus rhythm at a rate of 77 bpm Normal axis Normal intervals Normal ST segments Discharge Plan Triage Chief Complaint: Palpitations ED Provider: Christine Kennedy Dx/Rx/DC Orders Clinical Impression: Acute torticollis, Headache Instructions: Migraine Tension Headaches, ED Neck Spasm, No Trauma Prescriptions: No Action baclofen 20 MG tablet 30 mg PO TID cyanocobalamin (vitamin B-12) 1,000 MCG/ML solution 100 mcg IM Q30D ibuprofen 200 MG tablet 400 mg PO DAILY amitriptyline 100 MG tablet 100 mg PO QHS atenolol 50 MG tablet 75 mg PO QHS atenolol 50 MG tablet 50 mg PO DAILY cholecalciferol (vitamin D3) 50,000 UNIT capsule 50,000 unit PO TUTH amantadine HCl 100 MG capsule 100 mg PO BID bumetanide 2 mg Tablet 2 mg PO DAILY Qty: 1 0RF clonazepam 0.5 mg Tablet 0.5 mg PO QHS PRN (Reason: Spasms) 30 Days Qty: 30 0RF tramadol 50 mg Tablet 50 mg PO Q6H PRN PRN (Reason: Pain 1-10) 7 Days Qty: 28 0RF potassium chloride [Klor-Con M20] 20 mEq Tablet,Er Particles/Crystals 20 meq PO BIDCM 30 Days Qty: 60 0RF omeprazole 20 mg capsule,delayed release(DR/EC) 20 mg PO BID mupirocin 2 % Ointment 1 applic topical 0600,2200 PRN (Reason: blisters) Protocol: *Topical Application Instructions APPLICATION INSTRUCTIONS: Please apply to wounds on the right lateral upper thigh twice daily Primary Care Provider: Walt La Referrals: Walt La, [Primary Care Provider] - Print Language: Lao Disposition Disposition: Home, Self Care
[2024-10-06 22:37] LABS: Anion Gap 13 (5-15); BUN 16 mg/dL (4-19); BUN/Creat Ratio 16.3 RATIO (10-20); Calcium,Total 9.2 mg/dL (7.6-11.0); Carbon Dioxide 27.1 mmol/L (21.0-32.0); Chloride 105 mmol/L (98-108); EST Glomerular Filtration Rate 62 (>60); Estimated Creatinine Clearance 63.89 ml/min (50-250); Glucose 104 mg/dL (70-99); Magnesium 1.9 mg/dL (1.5-2.2); Potassium 3.3 mmol/L (3.3-5.1); Sodium Level 144 mmol/L (133-145)
[2024-10-06 23:00] VITALS: BP 134/54; PULSE 70; RESP 16; TEMP 36.9; O2SAT 97
== END 2024-10-06 23:17 | disposition home or self-care (01) ==
PROVIDERS: Emergency Provider Emergency Medicine; PCP Family Medicine; Visit Provider Emergency Medicine
DX: R00.2 Palpitations (principal); I10 Essential (primary) hypertension; Z87.891 Personal history of nicotine dependence; Z90.710 Acquired absence of both cervix and uterus; R51.9 Headache, unspecified; M43.6 Torticollis; Z79.899 Other long term (current) drug therapy; F41.9 Anxiety disorder, unspecified; K21.9 Gastro-esophageal reflux disease without esophagitis
CPT/HCPCS: 80048; 83735; 85025; 93005; 96374; 96375; 99283; A4216

== ENCOUNTER 2024-10-07 15:58 | Emergency (ER) | payer MEDICARE, OTHER, SELFPAY ==
[2024-10-07 15:59] VITALS: BP 177/95; PULSE 91; RESP 16; TEMP 36.8; O2SAT 93
[2024-10-07 17:58] VITALS: BP 181/87; PULSE 77; RESP 19; O2SAT 98
--- NOTE | 2024-10-07 18:11 | CT_ITS ---
PROCEDURE: SPINE THORACIC WITHOUT CONTRAS REASON FOR EXAM: PAIN TECHNIQUE: Thoracic spine CT without contrast. Coronal and Sagittal reconstruction series were provided. One or more dose reduction techniques were used (e.g., Automated exposure control, adjustment of the mA and/or kV according to patient size, use of iterative reconstruction technique). RADIATION DOSE SUMMARY: See CT head for discussion of radiation dosages. COMPARISON: None. FINDINGS: Alignment: No traumatic listhesis. Bones: Normal thoracic vertebral heights. No acute fracture. Mild multilevel degenerative disc disease. No suspicious lytic or blastic lesion. Soft Tissues: No soft tissue hematoma. Other: Emphysema and scattered areas of scarring. Calcific plaque of the coronary arteries, thoracic and abdominal aorta. CT/Spine Thoracic without Contras IMPRESSION: NO ACUTE THORACIC FRACTURE. DEGENERATIVE CHANGES. Reading Location: [id number]
--- NOTE | 2024-10-07 18:11 | CT_ITS ---
PROCEDURE: SPINE CERVICAL WITHOUT CONTRAS 10/07/2024 REASON FOR EXAM: NECK PAIN TECHNIQUE: Cervical spine CT without contrast. Coronal and Sagittal reconstruction series were provided. One or more dose reduction techniques were used (e.g., Automated exposure control, adjustment of the mA and/or kV according to patient size, use of iterative reconstruction technique RADIATION DOSE SUMMARY: See CT head for radiation values. COMPARISON: None. FINDINGS: Alignment: No traumatic listhesis. There is straightening of the normal cervical lordosis. Vertebrae: No acute fracture. Mild multilevel vertebral body height loss. Mild multilevel degenerative disc disease. Soft Tissues: No prevertebral hematoma. CT/Spine Cervical without Contras IMPRESSION: NO ACUTE CERVICAL FRACTURE. DEGENERATIVE CHANGES. Reading Location: [id number]
--- NOTE | 2024-10-07 18:11 | CT_ITS ---
EXAM: BRAIN/HEAD WITHOUT CONTRAST CLINICAL HISTORY: 68 y/o F with HEADACHE. COMPARISON: None. TECHNIQUE: Routine CT imaging of the head without IV contrast. Additional multiplanar reformats were obtained. Dose reduction techniques were used including intermediate exposure control (AEC),iterative reconstruction technique, and/or mA and/or KV dose adjustments based on patient's size. FINDINGS: The ventricles and subarachnoid spaces are normal for patient age. Mild patchy supratentorial white matter hypodensities. Tiny lacunar type infarct within the right caudate head. No acute intracranial hemorrhage or herniation. The basal cisterns are patent. Prior ocular lens replacements. Retention cyst or polyp within the right maxillary sinus. Prior left FESS. The mastoids are unremarkable. No acute calvarial fracture or scalp hematoma. CT/Brain/Head without Contrast IMPRESSION: No acute intracranial finding. Reading Location: [id number]
--- NOTE | 2024-10-07 18:19 | EX.ED.DYSGE1 ---
HPI History of Present Illness Chief Complaint: Back Informant: patient and spouse/S.O. Narrative Narrative: History of multiple sclerosis presents here similar for evaluation worsening neck and upper back pain mild headache for the last couple days. Awaking yesterday left-sided pain was seen in the ED treated symptomatically states no improvement of symptoms. She is on multiple muscle relaxers including baclofen amantadine and clonazepam. States no relief. She takes clonazepam at night. Reports pain down her left arm and now pain on the right side to her shoulder. Denies nausea or vomiting. She can weight-bear transfer multiple mobility devices putting chairs and scooters. She sees neurology with her MS since 2003 gets infusions every 6 months her last infusion was 3 days ago. States this feels different than her spasms. She is not a diabetic. [facility] Medical History History of migraine headaches Bimalleolar avulsion fracture of right ankle Osteopenia History of gastric polyp Bimalleolar fracture of right ankle Anxiety Difficulty swallowing History of GI bleed Gastric reflux Shortness of breath on exertion Former smoker History of stress test Hypertension HTN (hypertension) Acid reflux Multiple sclerosis COVID-19 Peripheral neuropathy Exacerbation of multiple sclerosis Home Medications ?Medication ?Instructions ?Recorded ?Last Taken ?Type amitriptyline 100 mg tablet 100 mg PO QHS DEPRESSION 08/04/14 11/11/22 History atenolol 50 mg tablet 50 mg PO DAILY BLOOD PRESSURE 08/04/14 11/12/22 History atenolol 50 mg tablet 75 mg PO QHS BLOOD PRESSURE 08/04/14 11/11/22 History baclofen 20 mg tablet 30 mg PO TID MS 08/04/14 11/12/22 History cholecalciferol (vitamin D3) 1,250 50,000 unit PO TUTH Supplement 08/04/14 11/11/22 History mcg (50,000 unit) capsule cyanocobalamin (vitamin B-12) 100 mcg IM Q30D SUPPLEMENT 08/04/14 10/18/22 10:00 History 1,000 mcg/mL injection solution ibuprofen 200 mg tablet 400 mg PO DAILY PAIN 08/04/14 11/12/22 History amantadine HCl 100 mg capsule 100 mg PO BID SPASMS 09/04/18 11/12/22 History bumetanide 2 mg tablet 2 mg PO DAILY fluid pill #1 TAB 11/12/22 11/12/22 Rx clonazepam 0.5 mg tablet 0.5 mg PO QHS PRN Spasms 30 days 11/17/22 Unknown Rx #30 tabs potassium chloride 20 mEq 20 meq PO BIDCM 30 days #60 tabs 11/17/22 Unknown Rx tablet,extended release(part/cryst) (Klor-Con M) tramadol 50 mg tablet 50 mg PO Q6H PRN PRN Pain 1-10 7 11/17/22 Unknown Rx days #28 tabs mupirocin 2 % topical ointment 1 applic topical 0600,2200 PRN 10/06/24 Unknown History blisters omeprazole 20 mg capsule,delayed 20 mg PO BID 10/06/24 Unknown History release ketorolac 10 mg tablet 10 mg PO Q8H PRN pain 1 day #20 10/07/24 Unknown Rx tabs oxycodone-acetaminophen 5 mg-325 1 tab PO Q6H PRN PRN Pain 3 days 10/07/24 Unknown Rx mg tablet #12 TABLETS prednisone 20 mg tablet 60 mg (3 x 20 mg) PO DAILY #12 10/07/24 Unknown Rx TABLETS Allergy/AdvReac Type Severity Reaction Status Date / Time adhesive AdvReac RED Verified 10/07/24 16:02 amlodipine besylate (From AdvReac Nausea Verified 10/07/24 16:02 Lotrel) benazepril HCl (From Lotrel) AdvReac Nausea Verified 10/07/24 16:02 codeine AdvReac Nausea Verified 10/07/24 16:02 latex AdvReac RED Verified 10/07/24 16:02 Penicillins AdvReac Nausea Verified 10/07/24 16:02 Family History Brother Diabetes Heart disease Kidney disease Cancer Mother Diabetes Hypertension Thyroid disorder VTE (venous thromboembolism) Son VTE (venous thromboembolism) Surgical History History of open reduction and internal fixation (ORIF) procedure History of colonoscopy History of surgical procedure on mouth History of skin surgery History of hysterectomy History of cataract surgery Social History household members: spouse housing: house pets and animals: Yes Smoking Status: Former smoker pack-years: 35 Tobacco: How many years used: 35 how long ago did patient quit smoking: quit smoking in 2008 and started as a teenager. alcohol intake: never substance use type: does not use additional social history: uses ibuprofen daily ROS ROS ED Constitutional Constitutional ED: Denies chills, fever(s) or sweats ENT ENT ED: Denies sore throat Cardiovascular Cardiovascular: Denies chest pain, leg edema, palpitations or racing heartbeat Respiratory/Chest Respiratory/Chest: Denies cough, dyspnea or dyspnea on exertion Gastrointestinal Gastrointestinal: Denies abdominal pain, diarrhea, nausea or vomiting Genitourinary Genitourinary ED: Denies dysuria, hematuria or urinary frequency Musculoskeletal Musculoskeletal: Reports back pain and neck pain; Denies extremity pain Integumentary Denies rash or wounds Neurologic Neurologic: Denies headache(s), paresthesias or weakness EXAM Physical Exam Const Vital Signs: 10/07/24 15:59 10/07/24 17:58 10/07/24 18:55 Temperature 98.3 F Temperature Source Oral Pulse Rate 91 77 75 Respiratory Rate 16 19 H 18 Blood Pressure 177/95 H 181/87 H 163/78 H Blood Pressure Mean 122 118 106 Pulse Ox 93 98 99 Oxygen Delivery Method Room Air Room Air Room Air 10/07/24 20:35 10/07/24 21:35 Temperature 98 F Temperature Source Pulse Rate 84 71 Respiratory Rate 18 18 Blood Pressure 165/70 H 152/60 H Blood Pressure Mean 101 90 Pulse Ox 96 97 Oxygen Delivery Method Room Air Positive well nourished and well developed General Appearance ED: well developed and NAD HEENT Reports moist mucous membranes normocephalic and atraumatic Eyes General Eye ED: Yes normal appearance of both eyes Neck full ROM Chest Wall Chest: Negative for tenderness Resp normal respiratory effort and normal air movement Effort and Inspection: symmetric chest movement; Negative for respiratory distress Cardio regular rate, regular rhythm and no murmurs Peripheral Pulses: pulses 2+ throughout GI normal to inspection, nondistended, normoactive bowel sounds and non-tender Palpation: Negative for guarding or rebound tenderness present Extremity normal to inspection General Extremety ED: Negative for edema or tenderness General Extremity: Negative for edema Neuro oriented x3 and no sensory deficits noted Sensorium / Orientation: awake and alert Skin no rashes or lesions noted and no wounds MDM MDM MDM Narrative Medical decision making narrative: Interventions / MDM: Differential diagnosis: Torticollis, muscle strain, history of multiple sclerosis, headache Diagnosis considered but do not suspect: Intracranial hemorrhage however CT negative My EKG interpretation: N/A Imaging independently reviewed and interpreted by myself: CT brain: No acute process. CT cervical spine/thoracic spine: Degenerative changes. Also read by radiology. External documents reviewed: N/A Test considered but not ordered:N/A ED course: Patient returns to ED worsening pain now bilateral cervical spine rating down her back. History of multiple sclerosis. She is on multiple muscle relaxers. She is not diabetic. CT head, cervical spine, thoracic spine ordered. IV established for Solu-Medrol. Given oral Valium. 2015: CT head cervical spine thoracic spine no acute process degenerative changes noted cervical and thoracic spine. She states there is mild improvement of symptoms. With negative CTs will add IV Toradol and morphine. Will reevaluate. Reevaluation clinically felt much better. She has muscle aches at home. Will continue prednisone for steroids. Will add oral Toradol she will avoid other NSAIDs. Short course for oxycodone to use as needed. Outpatient follow with her doctor. All questions were answered. Re-evaluation: stable Disposition discussed with patient/family/significant other: Patient and spouse Case discussed with consulting clinician: N/A This note was generated with [employer] dictation software. It may contain incorrect words, spelling, and punctuation that were not noted in checking the note before signing. Radiography Diagnostic Testing: Clinical Impression(s) from Imaging Studies Brain CT 10/07/24 18:11 IMPRESSION: No acute intracranial finding. Reading Location: [facility] Cervical Spine CT 10/07/24 18:11 IMPRESSION: NO ACUTE CERVICAL FRACTURE. DEGENERATIVE CHANGES. Reading Location: [facility] Thoracic Spine CT 10/07/24 18:11 IMPRESSION: NO ACUTE THORACIC FRACTURE. DEGENERATIVE CHANGES. Reading Location: [facility] Discharge Plan Triage Chief Complaint: Back Other Complaint: Other, Pain/Inj ED Provider: Le,Landon Dx/Rx/DC Orders Clinical Impression: Acute torticollis, Headache, Neck pain, Acute thoracic back pain, History of multiple sclerosis Instructions: Torticollis ([place]ry [place]ck) Prescriptions: New oxycodone-acetaminophen 5-325 mg tablet 1 tab PO Q6H PRN PRN (Reason: Pain) 3 Days Qty: 12 0RF prednisone 20 mg tablet 60 mg PO DAILY Qty: 12 0RF ketorolac 10 mg tablet 10 mg PO Q8H PRN (Reason: pain) 1 Days Qty: 20 0RF No Action baclofen 20 MG tablet 30 mg PO TID cyanocobalamin (vitamin B-12) 1,000 MCG/ML solution 100 mcg IM Q30D ibuprofen 200 MG tablet 400 mg PO DAILY amitriptyline 100 MG tablet 100 mg PO QHS atenolol 50 MG tablet 75 mg PO QHS atenolol 50 MG tablet 50 mg PO DAILY cholecalciferol (vitamin D3) 50,000 UNIT capsule 50,000 unit PO TUTH amantadine HCl 100 MG capsule 100 mg PO BID bumetanide 2 mg Tablet 2 mg PO DAILY Qty: 1 0RF clonazepam 0.5 mg Tablet 0.5 mg PO QHS PRN (Reason: Spasms) 30 Days Qty: 30 0RF tramadol 50 mg Tablet 50 mg PO Q6H PRN PRN (Reason: Pain 1-10) 7 Days Qty: 28 0RF potassium chloride [Klor-Con M20] 20 mEq Tablet,Er Particles/Crystals 20 meq PO BIDCM 30 Days Qty: 60 0RF omeprazole 20 mg capsule,delayed release(DR/EC) 20 mg PO BID mupirocin 2 % Ointment 1 applic topical 0600,2200 PRN (Reason: blisters) Protocol: *Topical Application Instructions APPLICATION INSTRUCTIONS: Please apply to wounds on the right lateral upper thigh twice daily Primary Care Provider: Walt La Referrals: Walt La DO [Primary Care Provider] - 1 Week Activity Restrictions/Additional Instructions: CT head cervical and thoracic spine. No bleeds. Degenerative changes of cervical and thoracic spine noted. Take medications as prescribed. Do not take Advil while using Toradol. Continue muscle relaxers. Finish steroids. Use oxycodone as needed. Oxycodone can lead to constipation. Increase your fruits and vegetables and fiber. Stool softeners if needed. Follow-up with your doctor. Print Language: Georgian Disposition Disposition: Home, Self Care Discharge Date/Time: 10/07/24 21:37
[2024-10-07] MEDS: diazePAM 5 MG Tablet PO (18:21)
[2024-10-07] MEDS: MethylPREDNISolone 125 MG/2 ML Vial IV (18:22)
[2024-10-07 18:55] VITALS: BP 163/78; PULSE 75; RESP 18; O2SAT 99
[2024-10-07] MEDS: Ketorolac 15 MG/ML Vial IV (20:31)
[2024-10-07] MEDS: Morphine 4 MG/ML Syringe IV (20:32)
[2024-10-07 20:34] VITALS: BMI 39.1
[2024-10-07 20:35] VITALS: BP 165/70; PULSE 84; RESP 18; O2SAT 96
[2024-10-07 21:35] VITALS: BP 152/60; PULSE 71; RESP 18; TEMP 36.6; O2SAT 97
== END 2024-10-07 21:37 | disposition home or self-care (01) ==
PROVIDERS: Emergency Provider Emergency Medicine; PCP Family Medicine; Visit Provider Emergency Medicine
DX: M54.6 Pain in thoracic spine (principal); Z90.710 Acquired absence of both cervix and uterus; Z87.891 Personal history of nicotine dependence; I10 Essential (primary) hypertension; R51.9 Headache, unspecified; M43.6 Torticollis; M54.2 Cervicalgia; Z87.39 Personal history of other diseases of the musculoskeletal system and connective tissue; Z79.899 Other long term (current) drug therapy; F41.9 Anxiety disorder, unspecified; K21.9 Gastro-esophageal reflux disease without esophagitis
CPT/HCPCS: 70450; 72125; 72128; 96374; 96375; 99283; A4216

== ENCOUNTER → 2025-02-05 | Outpatient (CLI) | payer MEDICARE, OTHER, SELFPAY ==
[2025-02-05 15:17] LABS: Hematocrit 41.0 % (37-47); Hemoglobin 13.7 g/dL (12.0-15.0); Immature Granulocytes Count 0.020 X10^3/uL (0.0-0.0); Mean Corp Hgb Conc 33.4 g/dL (32-36); Mean Corpuscular Volume 96.0 fL (81-99); Mean Platelet Vol. 11.5 fl (6.2-12.0); NRBC Flagged by Analyzer 0 % (0-5); Platelet Count 178 K/mm3 (150-450); RBC Distribution Width CV 13.1 % (11.6-14.6); RBC Distribution Width SD 46.5 fl (35.1-43.9); Red Blood Count 4.27 M/mm3 (4.2-5.4); White Blood Count 5.4 K/mm3 (4.4-11.0)
[2025-02-05 15:36] LABS: AST(SGOT) 26 U/L (<=31); Alanine Aminotransfer ALT/SGPT 18 U/L (<=34); Albumin, Serum 4.4 g/dL (3.4-4.8); Alkaline Phosphatase 136 U/L (35-104); Anion Gap 14 (5-15); BUN 15 mg/dL (4-19); BUN/Creat Ratio 13.9 RATIO (10-20); Calcium,Total 9.4 mg/dL (7.6-11.0); Carbon Dioxide 24.8 mmol/L (21.0-32.0); Chloride 103 mmol/L (98-108); Globulin 2.7 g/dL (2.2-4.2); Glucose 90 mg/dL (70-99); Potassium 3.9 mmol/L (3.3-5.1)
[2025-02-07 09:08] LABS: Immunoglobulin G 919 mg/dL (586-1602)
== END | disposition home or self-care (01) ==
LOC: MTLAB 13:30
PROVIDERS: PCP Family Medicine; Referring Provider Nurse Practitioner Gerontology; Visit Provider Nurse Practitioner Gerontology
DX: G35 Multiple sclerosis (principal); Z79.899 Other long term (current) drug therapy
CPT/HCPCS: 36415; 80053; 82784; 85025

== ENCOUNTER 2025-05-07 20:22 | Emergency (ER) | payer MEDICARE, OTHER, SELFPAY ==
[2025-05-07 20:23] VITALS: BP 157/64; PULSE 76; RESP 16; TEMP 36.6; O2SAT 99; BMI 39.4
--- NOTE | 2025-05-07 20:50 | EKG12_ITS ---
Test Reason : DYSRHYTHMIA Blood Pressure : */* mmHG Vent. Rate : 63 BPM Atrial Rate : 63 BPM P-R Int : 148 ms QRS Dur : 88 ms QT Int : 434 ms P-R-T Axes : 32 30 36 degrees QTcB Int : 444 ms Normal sinus rhythm Normal ECG Confirmed by Daniel Salas ([id number]), food editor TIMA SHIN ([id number]) on 05/10/2025 8:14:31 AM Referred By: Confirmed By: Daniel Salas
--- NOTE | 2025-05-07 20:51 | EX.ED.DYSGE1 ---
HPI History of Present Illness Chief Complaint: Cellulitis Detail of Chief Complaint: Leg swelling and concern for cellulitis Informant: patient and family Narrative Narrative: Patient presents to the emergency department complaint of leg swelling for several days. Increased redness and swelling to the left leg since yesterday. Some seeping and oozing from the left leg. She denies fevers or chills or sweats. She says is not unusual for her legs to be swollen but they are more swollen than usual. Patient has a history of MS. No history of CHF. No kidney disease history. She does take Bumex daily. She denies significant dyspnea [facility] Medical History History of migraine headaches Bimalleolar avulsion fracture of right ankle Osteopenia History of gastric polyp Bimalleolar fracture of right ankle Anxiety Difficulty swallowing History of GI bleed Gastric reflux Shortness of breath on exertion Former smoker History of stress test Hypertension HTN (hypertension) Acid reflux Multiple sclerosis COVID-19 Peripheral neuropathy Exacerbation of multiple sclerosis Home Medications ?Medication ?Instructions ?Recorded ?Last Taken ?Type amitriptyline 100 mg tablet 100 mg PO QHS DEPRESSION 08/04/14 11/11/22 History atenolol 50 mg tablet 50 mg PO DAILY BLOOD PRESSURE 08/04/14 11/12/22 History atenolol 50 mg tablet 50 mg PO QHS BLOOD PRESSURE 08/04/14 11/11/22 History baclofen 20 mg tablet 20 mg PO TID MS 08/04/14 11/12/22 History cholecalciferol (vitamin D3) 1,250 50,000 unit PO TUTH Supplement 08/04/14 11/11/22 History mcg (50,000 unit) capsule cyanocobalamin (vitamin B-12) 100 mcg IM Q30D SUPPLEMENT 08/04/14 10/18/22 10:00 History 1,000 mcg/mL injection solution ibuprofen 200 mg tablet 400 mg PO DAILY PAIN 08/04/14 11/12/22 History amantadine HCl 100 mg capsule 100 mg PO BID SPASMS 09/04/18 11/12/22 History clonazepam 0.5 mg tablet 0.5 mg PO QHS PRN Spasms 30 days 11/17/22 Unknown Rx #30 tabs potassium chloride 20 mEq 20 meq PO BIDCM 30 days #60 tabs 11/17/22 Unknown Rx tablet,extended release(part/cryst) (Klor-Con M) tramadol 50 mg tablet 50 mg PO Q6H PRN PRN Pain 1-10 7 11/17/22 Unknown Rx days #28 tabs mupirocin 2 % topical ointment 1 applic topical 0600,2200 PRN 10/06/24 Unknown History blisters baclofen 10 mg tablet 10 mg PO Q12H 05/07/25 Unknown History bumetanide 2 mg tablet 2 mg PO Q12H fluid pill 05/07/25 Unknown History cephalexin 500 mg capsule 500 mg PO Q6 #40 CAPSULES 05/07/25 Unknown Rx multivitamin 1 tab PO DAILY 05/07/25 Unknown History omeprazole 20 mg tablet,delayed 20 mg PO BID 05/07/25 Unknown History release sulfamethoxazole 800 1 tab PO BID #20 TABLETS 05/07/25 Unknown Rx mg-trimethoprim 160 mg tablet sumatriptan succinate 50 mg tablet 50 mg PO DAILY PRN migraine 05/07/25 Unknown History headache tirzepatide (weight loss) 2.5 2.5 mg subcut QWEEK 05/07/25 Unknown History mg/0.5 mL subcutaneous solution (Zepbound) Allergy/AdvReac Type Severity Reaction Status Date / Time adhesive AdvReac RED Verified 05/07/25 20:24 amlodipine besylate (From AdvReac Nausea Verified 05/07/25 20:24 Lotrel) benazepril HCl (From Lotrel) AdvReac Nausea Verified 05/07/25 20:24 codeine AdvReac Nausea Verified 05/07/25 20:24 latex AdvReac RED Verified 05/07/25 20:24 Penicillins AdvReac Nausea Verified 05/07/25 20:24 Family History Brother Diabetes Heart disease Kidney disease Cancer Mother Diabetes Hypertension Thyroid disorder VTE (venous thromboembolism) Son VTE (venous thromboembolism) Surgical History History of open reduction and internal fixation (ORIF) procedure History of colonoscopy History of surgical procedure on mouth History of skin surgery History of hysterectomy History of cataract surgery Social History household members: spouse housing: house pets and animals: Yes Smoking Status: Former smoker pack-years: 35 Tobacco: How many years used: 35 how long ago did patient quit smoking: quit smoking in 2008 and started as a teenager. alcohol intake: never substance use type: does not use additional social history: uses ibuprofen daily ROS ROS ED Review of Systems ROS Unobtainable: other Constitutional Constitutional ED: Reports lethargy; Denies chills, fever(s), sweats or weight loss Eyes Eyes: Denies blurry vision, change in vision or diplopia ENT ENT ED: Denies rhinorrhea or sore throat Cardiovascular Cardiovascular: Denies chest pain, orthopnea or racing heartbeat Respiratory/Chest Respiratory/Chest: Denies cough, dyspnea, dyspnea on exertion, orthopnea or sputum Gastrointestinal Gastrointestinal: Denies abdominal pain, diarrhea, nausea or vomiting Genitourinary Genitourinary ED: Denies dysuria, hematuria or urinary frequency Musculoskeletal Musculoskeletal: Reports other Details: Leg edema ; Denies arthralgias, back pain, myalgias or neck pain Integumentary Reports other Details: Erythema left lower extremity ; Denies abscess, Abrasions or rash Neurologic Neurologic: Denies headache(s) or weakness Psychiatric Psychiatric: Denies anxiety, depression or suicidal thoughts Endocrine Endocrinology: Denies polydipsia, polyphagia or polyuria Hematologic/Lymphatic Hematologic/Lymphatic: Denies easy bleeding, easy bruising or lymphadenopathy Allergic/Immunologic Allergic/Immunologic ED: Denies mouth swelling, tongue swelling or urticaria EXAM Physical Exam Const Vital Signs: 05/07/25 20:23 05/07/25 21:00 05/07/25 21:00 Temperature 98 F 98 F Temperature Source Oral Oral Pulse Rate 76 69 Respiratory Rate 16 16 Respiratory Effort Normal Non-Labored Respiratory Pattern Normal Blood Pressure 157/64 H 167/84 H Blood Pressure Mean 95 111 Pulse Ox 99 97 Oxygen Delivery Method Room Air Room Air 05/07/25 22:00 05/07/25 22:33 Temperature 98.1 F 98 F Temperature Source Oral Pulse Rate 65 65 Respiratory Rate 16 16 Respiratory Effort Respiratory Pattern Blood Pressure 158/72 H 142/57 H Blood Pressure Mean 100 85 Pulse Ox 98 96 Oxygen Delivery Method Room Air Positive well nourished and well developed General Appearance ED: well developed and NAD HEENT Reports TM's clear and moist mucous membranes normocephalic and atraumatic; Negative for trauma or tenderness Tympanic Membrane ED: Yes TM's clear Eyes PERRL and EOMs intact bilaterally General Eye ED: Negative for pale conjunctiva or scleral icterus Neck no lymphadenopathy, supple and no JVD General: Negative for tenderness Chest Wall inspection of chest normal and palpation of chest normal Chest: Negative for tenderness Resp normal respiratory effort and clear to auscultation bilaterally Effort and Inspection: Negative for respiratory distress or pain with movement Auscultation: Negative for rhonchi, wheezes or diminished lung sounds Cardio regular rate, regular rhythm, S1 normal heart sound, S2 normal heart sound and no murmurs Peripheral Pulses: pulses 2+ throughout GI normal to inspection, nondistended, normoactive bowel sounds, soft to palpation, non-tender, non-distended and no masses Back/Spine no CVA tenderness and no thoracic nor lumbar tenderness Extremity Extremity Narrative: Patient with +3 edema both lower extremities below the knee. She has some broken skin and weeping and oozing to the left lower extremity with some faint surrounding erythema consistent with early cellulitis. General Extremety ED: Negative for edema General Extremity: Negative for edema Neuro oriented x3, CN's II-XII intact bilaterally, no sensory deficits noted and gait normal Sensorium / Orientation: awake, alert, oriented to person, oriented to place and oriented to time Motor Exam: strength 5/5 throughout and strength abnormal Psych mental status grossly normal Skin no rashes or lesions noted and no wounds MDM MDM MDM Narrative Medical decision making narrative: Patient presents with leg edema and now concern for cellulitis of the left lower extremity. No respiratory distress. No history of CHF. IV line established. EKG obtained arrival showed sinus rhythm with rate of 63 bpm with no acute ST segment changes. CBC with differential shows a white count 6.4 with hemoglobin 13.6 and platelet count of 181. Chemistries unremarkable. BUN was 16 and creat 1.0. Lactate was 2.0. BNP was 1481. Lactate was 2.0. Venous Dopplers of both lower extremities were negative for DVT. At this point suspect venous stasis. Patient also has evidence of developing cellulitis of the left lower extremity. She is not septic and afebrile with stable vital signs. Will treat with Keflex and Bactrim. Refer to primary care physician for follow-up within the next 3 to 5 days. Advised to return if fever, chills, increased redness, or condition worsening way. Lab Data Attestation: I reviewed the patient's lab results. Labs: Laboratory Results - last 24 hr 05/07/25 21:00 WBC 6.4 RBC 4.34 Hgb 13.6 Hct 41.5 MCV 95.6 MCH 31.3 MCHC 32.8 RDW Std Deviation 46.9 H RDW Coeff of Caty 13.3 Plt Count 181 MPV 11.4 Immature Gran % (Auto) 0.500 Neut % (Auto) 70.3 H Lymph % (Auto) 13.4 L Benson % (Auto) 12.2 H Eos % (Auto) 2.8 Baso % (Auto) 0.8 Absolute Neuts (auto) 4.5 Absolute Lymphs (auto) 0.86 Nucleated RBC % 0 Sodium 144 Potassium 3.5 Chloride 105 Carbon Dioxide 25.6 Anion Gap 14 BUN 16 Creatinine 1.00 Estim Creat Clear Calc 63.37 Est GFR (MDRD) Non-Af 61 BUN/Creatinine Ratio 16.2 Glucose 120 H Lactic Acid 2.0 Calcium 9.3 NT pro BNP II 1481 H Radiography Diagnostic Testing: Clinical Impression(s) from Imaging Studies Chest X-Ray 05/07/25 21:10 IMPRESSION: No acute cardiopulmonary disease. Reading Location: [facility] Venous Duplex 05/07/25 21:14 IMPRESSION: No DVT in either lower extremity. Reading Location: [facility] 1 view chest x-ray obtained interpreted by myself as no evidence of infiltrate or pneumothorax or acute disease process. EKG Initial EKG: Attestation: I personally reviewed and interpreted this EKG as follows: Comments: Sinus rhythm with rate of 63 bpm with no acute ST segment changes Discharge Plan Triage Chief Complaint: Cellulitis ED Provider: Rakel Mooney Dx/Rx/DC Orders Clinical Impression: Leg edema, Cellulitis Instructions: ED Cellulitis, ED Peripheral Edema, Bilateral Prescriptions: New sulfamethoxazole-trimethoprim 800-160 mg tablet 1 tab PO BID Qty: 20 0RF cephalexin 500 mg capsule 500 mg PO Q6 Qty: 40 0RF No Action baclofen 20 MG tablet 20 mg PO TID cyanocobalamin (vitamin B-12) 1,000 MCG/ML solution 100 mcg IM Q30D ibuprofen 200 MG tablet 400 mg PO DAILY amitriptyline 100 MG tablet 100 mg PO QHS atenolol 50 MG tablet 50 mg PO QHS atenolol 50 MG tablet 50 mg PO DAILY cholecalciferol (vitamin D3) 50,000 UNIT capsule 50,000 unit PO TUTH amantadine HCl 100 MG capsule 100 mg PO BID clonazepam 0.5 mg Tablet 0.5 mg PO QHS PRN (Reason: Spasms) 30 Days Qty: 30 0RF tramadol 50 mg Tablet 50 mg PO Q6H PRN PRN (Reason: Pain 1-10) 7 Days Qty: 28 0RF potassium chloride [Klor-Con M20] 20 mEq Tablet,Er Particles/Crystals 20 meq PO BIDCM 30 Days Qty: 60 0RF bumetanide 2 mg Tablet 2 mg PO Q12H omeprazole 20 mg tablet,delayed release (DR/EC) 20 mg PO BID multivitamin Tablet 1 tab PO DAILY baclofen 10 mg tablet 10 mg PO Q12H sumatriptan succinate 50 mg tablet 50 mg PO DAILY PRN (Reason: migraine headache) Zepbound 2.5 mg/0.5 mL solution 2.5 mg SUBCUT QWEEK Patient Comments: pt has not gotten the Rx yet mupirocin 2 % Ointment 1 applic topical 0600,2200 PRN (Reason: blisters) Protocol: *Topical Application Instructions APPLICATION INSTRUCTIONS: Please apply to wounds on the right lateral upper thigh twice daily Primary Care Provider: Walt La Referrals: Walt La DO [Primary Care Provider, Family Practice] - 3-5 Days Print Language: Turkish Disposition Disposition: Home, Self Care
[2025-05-07 21:00] VITALS: BP 167/84; PULSE 69; RESP 16; TEMP 36.6; O2SAT 97
--- NOTE | 2025-05-07 21:10 | RAD_ITS ---
PROCEDURE: CHEST 1 VIEW (PORTABLE) 05/07/2025 REASON FOR EXAM: WEAKNESS TECHNIQUE: Frontal view of the chest. COMPARISON: 05/14/2019 FINDINGS: Lungs/Pleura: Clear. Heart/Mediastinum: Within normal limits. Bones/Soft tissues: No significant abnormality. RAD/Chest 1 View (Portable) IMPRESSION: No acute cardiopulmonary disease. Reading Location: [id number]
--- NOTE | 2025-05-07 21:14 | US_ITS ---
PROCEDURE: VENOUS DUPLEX IMAG/ROLANDO EXTREM 05/07/2025 REASON FOR EXAM: Lower extremity swelling TECHNIQUE: Procedure Code: USVDU Modality: US Procedure: VENOUS DUPLEX IMAG/ROLANDO EXTREM COMPARISON: None. FINDINGS: No intraluminal echogenicity to suggest the presence of a deep venous thrombosis. Appropriate respiratory variation, augmentation and venous compression is noted. US/Venous Duplex Imag/Rolando Extrem IMPRESSION: No DVT in either lower extremity. Reading Location: [id number]
--- OUTSIDE RECORDS SUMMARY | 2025-05-07 21:17 | XMS RPT_ITS | CCD ---
Author Organization [facility] Care Team Providers Care Pageant Director Name Role Phone JAN LEWIS Unavailable Unavailable JAN LEWIS Unavailable Unavailable MISC, DOCTOR Unavailable Unavailable Walt La Unavailable Unavailable Unavailable Dr. Walt La Primary Care Provider [phone] Dr. Walt La Referring Provider Dr. Tonya Nguyễn Attending Provider Dr. Walt La Primary Care Provider [phone] Dr. Walt La Referring Provider Dr. Tonya Nguyễn Attending Provider Dr. Tonya Nguyễn Referring Provider Dr. Tonya Nguyễn Other Provider Boo Nino Referring Unavail able Tamra, Dr. Tarun Jimenez Attending Marnie vailable Bessie, Dr. Walt Fish Primary Care Unavaila ble Bessie, Dr. Walt Fish Primary Care Unavaila ble Self, Referral Referring Unavailable Boo Nino Attending Unavail able Anaid, Dr. Bell Attending Unavailable Dr. Walt La Primary Care Unavaila ble Bessie, Dr. Walt Fish Primary Care Unavaila ble Anaid, Dr. Bell Attending Unavailable Anaid, Dr. Bell Attending Unavailable Bessie, Dr. Walt Fish Primary Care Unavaila ble Bessie, Dr. Walt Fish Primary Care Unavaila ble Li, Dr. Bell Admitting Unavailable Anaid, Dr. Bell Attending Unavailable Anaid, Dr. Bell Referring Unavailable Bessie, Dr. Godoy Primary Care Provider [phone] Dr. Tripp Sarah Attending Provider Dr. Doron Brand Emergency Provider Kyle, Dr. Forte Admit Provider Dr. Jann Wright Attending Provider Kyle, Dr. Forte Other Provider Dr. Juan Manuel Umaña Other Provider Koram, Dr. Lorna Zayas Attending Provider Koram, Dr. Lorna Zayas Other Provider Sementi, Dr. Sosa Smith Admit Provider Sementi, Dr. Sosa Smith Attending Provider Sementi, Dr. Sosa Smith Other Provider Dr. Walt La Primary Care Provider [phone] Dr. Noel Ryan Attending Provider Dr. Jann Wright Referring Provider Deacon, Dr. Richar Burrell Admit Provider Deacon, Dr. Richar Burrell Other Provider Dr. Walt La DO Primary Care Provider ROXANNEK [employer] DBA-CVARUN Attending Provider ROXANNEK [employer] DBA-CVARUN Referring Provider Dr. Walt La DO Attending Provider Dr. Walt La DO Referring Provider [phone] Dr. Doron Gamez MD Attending Provider Dr. Walt La DO Primary Care Provider ROXANNEK [employer] D[employer]-CVARUN Attending Provider JUNK SQL SERVER DBA-CVARUN Referring Provider Dr. Walt La DO Attending Provider Dr. Walt La DO Referring Provider [phone] Dr. Christine Kennedy DO Emergency Provider [phone] Dr. Landon Pedraza DO Emergency Provider [phone] Walt La DO Primary Care Physician [phone] PABLO [employer] D[employer]-C, VARUN Attending Physician [phone] P[employer]LO [employer], VARUN Referring Provider Bessie, Walt Primary Care Unavailable Bessie, Walt Referring Unavailable Doron Gamez Attending Unavailable Bessie, Walt Primary Care Unavailable Bessie, Walt Referring Unavailable Bessie, Walt Attending Unavailable Bessie, Walt Primary Care Unavailable Referred, Self Referring Unavailable Referred, Self Attending Unavailable Bessie, Walt Primary Care Unavailable Bessie, Walt Referring Unavailable Bessie, Walt Attending Unavailable JUNK, VARUN Attending Unavailable Bessie, Walt Primary Care Unavailable JUNK, VARUN Referring Unavailable Bessie, Watl Primary Care Unavailable JUNK, VARUN Attending Unavailable JUNK, VARUN Referring Unavailable Bessie, Walt Primary Care Unavailable JUNK, VARUN Attending Unavailable JUNK, VARUN Referring Unavailable Bessie, Walt Primary Care Unavailable Landon Pedraza Attending Unavailable Christine Kennedy Attending Unavailable Bessie, Walt Primary Care Unavailable Allergies Allergy Classification Reported Allergen(s) Allergy Type Date of Onset Reaction(s) Facility (6 sources) Adhesive Tape Allergy to substance (finding) [facility] Work Phone: (6 sources) amLODIPine / benazepril; Translations: [Lotrel CAPS] Drug Allergy [facility] Work Phone: (20 sources) Codeine; Translations: [codeine] Drug Allergy 1 Unknown, [facility] (6 sources) natural latex rubber Allergy to substance (finding) [facility] Work Phone: (17 sources) Adhesive agent; Translations: [adhesive] Allergy to substance 1 Unknown, [facility] (17 sources) amLODIPine; Translations: [amlodipine besylate] Drug Allergy 1 Unknown, Nausea [facility] (2 sources) Aspirin Drug Allergy 1 Unknown [facility] Work Phone: (17 sources) benazepril; Translations: [benazepril HCl] Drug Allergy 1 Unknown, Nausea [facility] (16 sources) Latex Allergy to substance 1 Rash, RED [facility] (17 sources) Penicillins; Translations: [Penicillins] Allergy to substance 1 Unknown, Nausea [facility] (1 source) Codeine Drug Allergy 5 [facility] (1 source) Latex Drug allergy (disorder) 5 [facility] Medications Current Medications Medication Drug Class(es) Dates Sig (Normalized) Sig (Original) acetaminophen 325 mg / oxyCODONE hydrochloride 5 mg oral tablet (2 sources) Opioid Agonist Start: 10-07-2024 take 1 tablet by mouth every six hours as needed for pain amantadine hydrochloride 100 mg oral capsule (20 sources) Influenza A M2 Protein Inhibitor Start: 09-04-2018 take 1 capsule by mouth twice daily amitriptyline hydrochloride 100 mg oral tablet (20 sources) Tricyclic Antidepressant Start: 08-04-2014 take 1 tablet by mouth at bedtime Amitriptyline HC l - 100 MG Oral Tablet Quantity: 0 Refills: 0 Ordered: 27-Jul-2021 DO Active atenolol 50 mg oral tablet (20 sources) beta-Adrenergic Marilee Start: 08-04-2014 take 1 tablet by mouth once daily Start: 08-04-2014 Start: 08-04-2014 take 75 mg by mouth at bedtime Atenolol Active 75 MG PO AT BEDTIME August 04, 2014 12:00am Atenolol 50 MG O ral Tablet Quantity: 0 Refills: 0 Ordered: 27-Jul-2021 DO Active baclofen 20 mg oral tablet (20 sources) gamma-Aminobutyric Acid-ergic Agonist Start: 08-04-2014 Start: 08-04-2014 Baclofen 20 MG tablet Active 30 mg PO EVERY 8 HOURS August 04, 2014 12:00am Start: 08-04-2014 take 30 mg by mouth every eight hours Baclofen Active 30 MG PO EVERY 8 HOURS August 04, 2014 12:00am Start: 08-04-2014 take 30 mg by mouth three times daily Baclofen Active 30 MG PO THREE TIMES A DAY August 04, 2014 12:00am Baclofen 10 MG O ral Tablet Quantity: 0 Refills: 0 Ordered: 27-Jul-2021 DO Active bumetanide 2 mg oral tablet (20 sources) Loop Diuretic Start: 11-12-2022 take 1 tablet by ina th once daily Start: 09-04-2018 End: 11-12-2022 take 1 tablet by mouth twice daily Bumetanide 2 MG tablet Discontinued 2 mg PO TWICE A DAY September 04, 2018 12:00am November 12, 2022 10:55am WATER PILL Bumetanide TABS Quantity: 0 Refills: 0 Ordered: 27-Jul-2021 DO Active cholecalciferol 1.25 mg oral capsule (16 sources) Vitamin D Start: 08-04-2014 clonazePAM 0.5 mg oral tablet (16 sources) Benzodiazepine Start: 10-25-2022 End: 11-17-2022 take 1 tablet by mouth at bedtime as needed for muscle spasms dexamethasone 6 mg oral tablet (2 sources) Corticosteroid Start: 07-17-2020 take 6 mg by mouth once daily Dexamethasone Active 6 MG PO DAILY July 17, 2020 1:37pm ibuprofen 200 mg oral tablet (20 sources) Nonsteroidal Anti-inflammatory Drug Start: 08-04-2014 take 2 tablets by mouth once daily Start: 08-04-2014 take 400 mg by mouth once quentin y Ibuprofen Active 400 MG PO DAILY August 04, 2014 12:00am Advil 200 MG Ora l Tablet Quantity: 0 Refills: 0 Ordered: 27-Jul-2021 DO Active ketorolac tromethamine 10 mg oral tablet (2 sources) Nonsteroidal Anti-inflammatory Drug, Cyclooxygenase Inhibitor Start: 10-07-2024 take 1 tablet by mouth every eight hours as needed for pain mupirocin 0.02 mg/mg topical ointment (20 sources) RNA Synthetase Inhibitor Antibacterial Start: 10-06-2024 Start: 11-12-2022 End: 10-06-2024 Mupirocin 2 % Ointment Disco ntinued 1 NMA TOPICAL 0600,2200 45 30 0 November 17, 2022 12:00am October 06, 2024 9:28pm Please contact the information source for Protocol details. 10 ml ocrelizumab 30 mg/ml injection (8 sources) Start: 09-04-2018 Ocrelizumab Ac tive 300 MG IV Q6M September 04, 2018 12:00am every 6 months due November 2018. last had Jun 2018 omeprazole 20 mg delayed release oral capsule (20 sources) Proton Pump Inhibitor Start: 10-06-2024 take 1 capsule by mouth twice daily Start: 03-01-2022 End: 03-24-2022 take 1 tablet by mouth twice daily Omeprazole Magnesium (Prilosec Otc) 20 mg tablet,delayed release (DR/EC) Discontinued 20 mg PO TWICE A DAY March 01, 2022 12:00am March 24, 2022 10:45am Start: 08-04-2014 End: 03-01-2022 take 1 capsule by mouth twice daily Omeprazole 20 MG capsule Discontinued 20 mg PO TWICE A DAY August 04, 2014 12:00am March 01, 2022 2:54pm PriLOSEC OTC 20 MG Oral Tablet Delayed Release Quantity: 0 Refills: 0 Ordered: 27-Jul-2021 DO Active microencapsulated potassium chloride 20 meq extended release oral tablet (20 sources) Start: 11-12-2022 End: 11-17-2022 Start: 09-04-2018 End: 05-17-2019 Potassium Chloride (Klor-Con M20) 20 MEQ Tab.Er.Prt Discontinued 20 meq PO NEEDED as needed for Supplement Supervisor Coil Winding September 04, 2018 12:00am May 17, 2019 1:10pm Start: 09-04-2018 End: 10-25-2022 take 1 tablet by mouth once daily Potassium Chloride 20 MEQ tablet,ER particles/crystals Discontinued 20 meq PO DAILY 1 0 May 17, 2019 1:10pm October 25, 2022 1:18am predniSONE 20 mg oral tablet (18 sources) Start: 10-07-2024 take 3 tablets by mouth once d aily Start: 07-16-2020 End: 03-01-2022 take 1 tablet by mouth once daily as needed Prednisone 5 mg tablet Discontinued 5 mg PO DAILY as needed for MS FLARE July 16, 2020 1:00am March 01, 2022 2:56pm sucralfate 1000 mg oral tablet (4 sources) Aluminum Complex Start: 03-24-2022 take 1 g by mouth four times daily 1 hour(s) before bedtime Sucralfate Active 1 GM PO 4 TIMES DAILY March 24, 2022 1:00am Take 1 hour before meals and at bedtime traMADol hydrochloride 50 mg oral tablet (20 sources) Opioid Agonist Start: 09-03-2018 End: 11-17-2022 take 1 tablet by mouth every six hours as needed for pain Start: 09-03-2018 take 50 mg by mouth every four hours as needed Tramadol Active 50 MG PO EVERY 4 HOURS NEEDED September 03, 2018 12:00am traMADol HCl - 5 0 MG Oral Tablet Quantity: 0 Refills: 0 Ordered: 27-Jul-2021 DO Active Completed/Discontinued Medications Medication Drug Class(es) Dates Sig (Normalized) Sig (Original) acetaminophen 325 mg / HYDROcodone bitartrate 5 mg oral tablet (2 sources) Opioid Agonist Start: 02-23-2021 HYDROcodone-Acetam inophen 5-325 MG Oral Tablet Quantity: 6 Refills: 0 Ordered: 23-Feb-2021 DO Start : 23-Feb-2021 Active amoxicillin 875 mg / clavulanate 125 mg oral tablet (4 sources) Penicillin-class Antibacterial Start: 06-11-2021 take 1 tablet by mouth every twelve hours at mealtime Amoxicillin-Pot Clavulanate 875-125 MG Oral Tablet TAKE 1 TABLET BY MOUTH EVERY 12 HOURS WITH MEALS Quantity: 20 Refills: 0 Ordered: 11-Jun-2021 DO Start : 11-Jun-2021 Active Hbpgn-Zwaz-Aqsdg-Co llag-Mv-Min (Uriel (With Collagen)) 7-7-1.5 gram Powder In Packet (15 sources) Start: 11-17-2022 End: 10-06-2024 Ipsrb-Ksiy-Lrdao-C nxnhy-Ii-Wyw (Uriel (With Collagen)) 7-7-1.5 gram Powder In Packet Discontinued 1 NMA PO TWICE DAILY WITH MEALS 60 30 0 November 17, 2022 12:00am October 06, 2024 9:25pm Start: 11-17-2022 End: 10-06-2024 Csocf-Zabl-Tpthw-Collag-Mv-M in (Uriel (With Collagen)) 7-7-1.5 gram Powder In Packet Discontinued 1 NMA PO TWICE DAILY WITH MEALS 60 30 November 17, 2022 12:00am October 06, 2024 9:25pm Start: 11-17-2022 Vnhfo-Wavj-Buz jg-Wqxmqe-Tf-Min (Uriel (With Collagen)) 7-7-1.5 gram Powder In Packet Active 1 NMA PO TWICE DAILY WITH MEALS 60 November 17, 2022 12:00am Start: 11-17-2022 Mnbxl-Kiey-Jhe jo-Kkkksr-Zg-Min (Uriel (With Collagen)) 7-7-1.5 gram Powder In Packet Active 1 PACKET PO TWICE DAILY WITH MEALS 60 November 17, 2022 12:00am Start: 11-12-2022 End: 11-17-2022 Ucqup-Tcne-Uuroe-Collag-Mv-M in (Uriel (With Collagen)) 7-7-1.5 gram Powder In Packet Discontinued 1 NMA PO TWICE DAILY WITH MEALS 1 November 12, 2022 12:00am November 17, 2022 8:26pm supplement Start: 11-12-2022 End: 11-17-2022 Nyctq-Egvd-Zryfa-Collag-Mv-M in (Uriel (With Collagen)) 7-7-1.5 gram Powder In Packet Discontinued 1 NMA PO TWICE DAILY WITH MEALS November 12, 2022 12:00am November 17, 2022 8:26pm Start: 11-12-2022 End: 11-17-2022 Zzmmh-Vhet-Ivczh-Collag-Mv-M in (Uriel (With Collagen)) 7-7-1.5 gram Powder In Packet Discontinued 1 PACKET PO TWICE DAILY WITH MEALS November 12, 2022 12:00am November 17, 2022 8:26pm Start: 11-12-2022 Ythor-Fnde-Ofc le-Belzmc-Ti-Min (Uriel (With Collagen)) 7-7-1.5 gram Powder In Packet Active 1 PACKET PO TWICE DAILY WITH MEALS November 12, 2022 12:00am azithromycin 250 mg oral tablet (4 sources) Macrolide Antimicrobial Start: 05-01-2021 Azithromycin 250 MG Oral Tablet Quantity: 6 Refills: 0 Ordered: 08-May-2021 DO Start : 01-May-2021 Active betamethasone 0.5 mg/ml topical cream (6 sources) Corticosteroid Betamethasone Dipropionate 0.05 % External Cream Quantity: 0 Refills: 0 Ordered: 27-Jul-2021 DO Active bifidobacterium animalis [id number] unt / lactobacillus acidophilus [id number] unt oral capsule (6 sources) Probiotic CAPS Quantity: 0 Refills: 0 Ordered: 27-Jul-2021 DO Active bisacodyl 10 mg rectal suppository (8 sources) Stimulant Laxative Start: 11-12-2022 End: 11-17-2022 Bisacodyl 10 mg Suppository Discontinued 10 mg RC .PRN X 1 as needed for Constipation 1 0 November 12, 2022 12:00am November 17, 2022 8:26pm Start: 11-12-2022 End: 11-17-2022 Bisacodyl Discontinued 10 MG RC .PRN X 1 November 12, 2022 12:00am November 17, 2022 8:26pm calcium carbonate 500 mg chewable tablet (8 sources) Start: 11-12-2022 End: 10-06-2024 take 1 tablet by mouth twice daily at mealtime Calcium Carbonate 200 mg calcium (500 mg) Tablet,Chewable Discontinued 500 mg PO TWICE DAILY WITH MEALS 1 November 12, 2022 12:00am October 06, 2024 9:26pm supplement cephalexin 500 mg oral capsule (4 sources) Cephalosporin Antibacterial Start: 04-02-2021 take 1 capsule by mouth three times daily Cephalexin 500 MG Oral Capsule TAKE 1 CAPSULE BY MOUTH THREE TIMES DAILY Quantity: 18 Refills: 0 Ordered: 23-Jun-2021 DO Start : 02-Apr-2021 Active clindamycin 150 mg oral capsule (4 sources) Lincosamide Antibacterial Start: 12-30-2020 take 1 capsule by mouth four times daily Clindamycin HCl - 150 MG Oral Capsule TAKE 1 CAPSULE BY MOUTH 4 TIMES DAILY UNTIL GONE Quantity: 28 Refills: 0 Ordered: 16-Apr-2021 DO Start : 30-Dec-2020 Active docusate sodium 50 mg / sennosides, intermediate 8.6 mg oral tablet (15 sources) Start: 11-12-2022 End: 10-06-2024 Sennosides-Docusate Sodium (Stool Softener-Stimulant Laxat) 8.6-50 mg Tablet Discontinued 2 {tbl} PO TWICE A DAY 120 30 0 November 17, 2022 12:00am October 06, 2024 9:28pm doxycycline hyclate 100 mg oral capsule (20 sources) Tetracycline-class Drug Start: 08-19-2020 take 1 capsule by mouth twice daily Doxycycline Hyclate 100 MG Oral Capsule TAKE ONE CAPSULE BY MOUTH TWICE A DAY Quantity: 14 Refills: 0 Ordered: 19-Aug-2020 DO Start : 19-Aug-2020 Active Start: 09-04-2018 End: 09-05-2018 take 1 capsule by mouth twice daily Doxycycline Monohydrate 100 MG capsule Discontinued 100 mg PO TWICE A DAY 10 0 September 05, 2018 9:27am September 05, 2018 9:28am 0.4 ml enoxaparin sodium 100 mg/ml prefilled syringe (17 sources) Low Molecular Weight Heparin Start: 10-28-2022 End: 11-17-2022 Enoxaparin (Lovenox) 40 mg/0.4 mL syringe Discontinued 40 mg SC DAILY@0600 October 28, 2022 3:31pm November 17, 2022 8:27pm Check with primary doctor fluconazole 200 mg oral tablet (13 sources) Azole Antifungal Start: 03-26-2022 End: 10-25-2022 take 1 tablet by mouth once daily Fluconazole 200 mg tablet Discontinued 200 mg PO DAILY 7 0 March 26, 2022 1:00am October 25, 2022 1:20am 12 hr guaiFENesin 1200 mg extended release oral tablet (20 sources) Start: 09-05-2018 End: 03-01-2022 take 1 tablet by mouth twice daily as needed for congestion Guaifenesin 1,200 MG tablet Discontinued 1200 mg PO TWICE A DAY as needed for Congestion July 17, 2020 1:33pm March 01, 2022 2:56pm magnesium hydroxide 80 mg/ml oral suspension (8 sources) Start: 11-12-2022 End: 11-17-2022 Magnesium Hydroxide 400 mg/5 mL Suspension Discontinued 30 mL PO .PRN X 1 as needed for Constipation 1 November 12, 2022 12:00am November 17, 2022 8:27pm Start: 11-12-2022 End: 11-17-2022 Magnesium Hydroxide 400 mg/5 mL Suspension Discontinued 30 mL PO .PRN X 1 as needed for Constipation 1 November 12, 2022 12:00am November 17, 2022 8:27pm Start: 11-12-2022 End: 11-17-2022 Magnesium Hydroxide Disconti nued 30 ML PO .PRN X 1 1 November 12, 2022 12:00am November 17, 2022 8:27pm Start: 11-12-2022 Magnesium Hydr oxide Active 30 ML PO .PRN X 1 1 November 12, 2022 12:00am menthol 0.0044 mg/mg / zinc oxide 0.206 mg/mg topical ointment (8 sources) Start: 11-12-2022 End: 11-17-2022 Menthol-Zinc Oxide (Calmosep stevan) 0.44-20.6 % Ointment Discontinued 1 NMA TOPICAL TWICE A DAY 1 0 November 12, 2022 12:00am November 17, 2022 8:27pm skin protectant Please contact the information source for Protocol details. Start: 11-12-2022 End: 11-17-2022 Menthol-Zinc Oxide (Calmosep stevan) 0.44-20.6 % Ointment Discontinued 1 NMA TOPICAL TWICE A DAY 1 November 12, 2022 12:00am November 17, 2022 8:27pm Please contact the information source for Protocol details. Start: 11-12-2022 End: 11-17-2022 Menthol-Zinc Oxide (Calmosep stevan) 0.44-20.6 % Ointment Discontinued 1 APPLIC TOPICAL TWICE A DAY 1 November 12, 2022 12:00am November 17, 2022 8:27pm Start: 11-12-2022 Menthol-Zinc O xide (Calmoseptine) 0.44-20.6 % Ointment Active 1 APPLIC TOPICAL TWICE A DAY 1 November 12, 2022 12:00am Multi-Vitamin Oral Tablet (6 sources) Multi-Vitamin Or al Tablet Quantity: 0 Refills: 0 Ordered: 27-Jul-2021 DO Active nystatin 100 unt/mg topical powder (8 sources) Polyene Antifungal Start: 11-12-2022 End: 11-17-2022 Nystatin (Nyamyc) 100,000 unit/gram Powder Discontinued 1 NMA TOPICAL 0600,2200 1 0 November 12, 2022 12:00am November 17, 2022 8:27pm moisture/yeast Please contact the information source for Protocol details. Start: 11-12-2022 End: 11-17-2022 Nystatin ([facility]) 100,000 un it/gram Powder Discontinued 1 APPLIC TOPICAL 0600,2200 November 12, 2022 12:00am November 17, 2022 8:27pm Ocrevus SOLN (1 source) Ocrevus SOLN infusion every 6 months Quantity: 0 Refills: 0 Ordered: 13-Oct-2021 DO Active ondansetron 4 mg disintegrating oral tablet (16 sources) Serotonin-3 Receptor Antagonist Start: 05-14-20 End: 03-01-20 Ondansetron 4 MG tablet,disintegrati ng Discontinued 1 {tbl} PO EVERY 4 HOURS NEEDED as needed for Nausea May 14, 2019 1:00am March 01, 2022 2:56pm oseltamivir 75 mg oral capsule (16 sources) Neuraminidase Inhibitor Start: 09-06-19 End: 05-17-19 take 1 capsule by mouth twice daily Oseltamivir 75 MG capsule Discontinued 75 mg PO TWICE A DAY 5 September 05, 2018 12:00am May 17, 2019 1:06pm pantoprazole 40 mg delayed release oral tablet (20 sources) Proton Pump Inhibitor Start: 03-24-20 End: 10-07-19 take 1 tablet by mouth once daily Pantoprazole 40 mg Tablet,Delayed Release (Dr/Ec) Discontinued 40 mg PO DAILY November 17, 2022 12:00am October 06, 2024 9:27pm rizatriptan 10 mg oral tablet (15 sources) Serotonin-1b and Serotonin-1d Receptor Agonist Start: 11-13-19 End: 10-07-19 take 1 tablet by mouth once daily as needed Rizatriptan 10 mg Tablet Discontinued 10 mg PO DAILY NEEDED as needed for MIGRAINE SYMPTOMS November 17, 2022 12:00am October 06, 2024 9:28pm salmon calcitonin 200 unt/actuat nasal spray (8 sources) Calcitonin Start: 11-13-19 End: 11-18-19 Calcitonin ([place]) 200 unit/actuation [place],Non-Aerosol Discontinued 1 NMA NARES DAILY 1 November 12, 2022 12:00am November 17, 2022 8:26pm bone health Start: 11-12-2022 End: 11-17-2022 Calcitonin ([place]) Disconti nued 1 SPRAY NARES DAILY 1 November 12, 2022 12:00am November 17, 2022 8:26pm SUMAtriptan 50 mg oral tablet (20 sources) Serotonin-1b and Serotonin-1d Receptor Agonist Start: 03-01-2022 End: 11-12-2022 take 1 tablet by mouth once as needed for headache Sumatriptan Succinate (Imitrex) 50 mg tablet Discontinued 50 mg PO ONCE as needed for migraine headache March 01, 2022 12:00am November 12, 2022 10:56am Start: 09-03-2018 End: 03-01-2022 Sumatriptan Succinate 50 MG tablet Discontinued 50 mg PO NEEDED as needed for Pain September 03, 2018 12:00am March 01, 2022 2:56pm tiZANidine 4 mg oral tablet (4 sources) Central alpha-2 Adrenergic Agonist Start: 07-10-2021 take 0.5-1 tablets by mouth once daily as needed tiZANidine HCl - 4 MG Oral Tablet TAKE 1/2 TO 1 (ONE-HALF TO ONE) TABLET BY MOUTH NEEDED ONCE DAILY Quantity: 30 Refills: 0 Ordered: 10-Jul-2021 DO Start : 10-Jul-2021 Active vitamin b12 1 mg/ml injectable solution (20 sources) Vitamin B12 Start: 06-17-2020 Cyanocobalamin 1000 MCG/ML Injection Solution INJECT 1 ML ONCE EVERY MONTH Quantity: 1 Refills: 0 Ordered: 20-Apr-2021 DO Start : 17-Jun-2020 Active Start: 08-04-2014 inject 100 ug by int ramuscular injection every 30 days Start: 08-04-2014 inject 100 ug by int ramuscular injection every 30 days Cyanocobalamin (Vitamin B-12) Active 100 MCG IM Q30D August 04, 2014 12:00am Problems Active Problems Problem Classification Problem Date Documented Da te Episodic/Chronic Abdominal pain (20 sources) Epigastric pain; Translations: [Epigastric pain] Episodic Acquired foot deformities (11 sources) Foot-drop; Translations: [Foot drop, left foot] 11-12-2022 Episodic Comment on above: Left leg has always been her weak leg and now she is NWB on the RLE. No ambulation except when with PT. Acute posthemorrhagic anemia (10 sources) Acute posthemorrhagic anemia; Translations: [Acute posthemorrhagic anemia] 10-29-2022 Episodic Coagulation and hemorrhagic disorders (8 sources) Thrombocytopenic disorder; Translations: [Thrombocytopenia, unspecified] 11-13-2022 Chronic Diseases of white blood cells (8 sources) Leukopenia; Translations: [Decreased white blood cell count, unspecified] 11-13-2022 Chronic Esophageal disorders (20 sources) Gastroesophageal reflux disease; Translations: [Gastro-esophageal reflux disease without esophagitis] Chronic Essential hypertension (17 sources) Hypertensive disorder; Translations: [Essential (primary) hypertension] Onset: 2 03-01-2022 Chronic Fluid and electrolyte disorders (20 sources) Hypovolemia; Translations: [Hypovolemia] 11-09-2022 Episodic Fracture of lower limb (20 sources) Bimalleolar fracture of ankle ; Translations: [Displaced bimalleolar fracture of right lower leg, initial encounter for closed fracture] 10-25-2022 Episodic Headache; including migraine (9 sources) Migraine; Translations: [Migraine, unspecified, not intractable, without status migrainosus] Onset: 2 07-16-2020 Chronic Headache; including migraine (4 sources) Headache; Translations: [Headache] 10-06-2024 Episodic Malaise and fatigue (11 sources) Asthenia; Translations: [Other malaise] 11-12-2022 Episodic Comment on above: Due to a fall with b imalleolar fx of the R distal tib/fib Miscellaneous mental health disorders (8 sources) Pica; Translations: [Other specified eating disorder] 11-13-2022 Chronic Comment on above: For ice. Checking ir on studies. 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; Translations: [Multiple sclerosis] Onset: 2 03-22-2022 Chronic Comment on above: SPASMS - USES WALKER Other bone disease and musculoskeletal deformities (8 sources) Osteopenia; Translations: [Other specified disorders of bone density and structure, unspecified site] 11-12-2022 Episodic Other bone disease and musculoskeletal deformities (1 source) Other specified disorders of bone density and structure, unspecified site; Translations: [Disorder of bone and cartilage, unspecified] 11-12-2022 Episodic Other congenital anomalies (6 sources) Oronasal fistula; 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, unspecified] Chronic Other congenital anomalies (1 source) Cleft palate, unspecified; 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, unspecified] Onset: 2 Chronic Other gastrointestinal disorders (15 sources) Constipation; Translations: [Constipation, unspecified] 03-01-2022 Episodic Other gastrointestinal disorders (2 sources) Constipation, unspecified; Translations: [Constipation, unspecified] 11-12-2022 Episodic Other upper respiratory infections (10 sources) Chronic maxillary sinusitis; Translations: [Chronic maxillary sinusitis] Onset: 2 Chronic Residual codes; unclassified (8 sources) History of operation on musculoskeletal system; Translations: [Other specified postprocedural states] 11-12-2022 Episodic Comment on above: By Dr. Umaña Residual codes; unclassified (3 sources) Other specified postprocedural states; Translations: [Personal history of surgery to other organs] 11-12-2022 Episodic Skin and subcutaneous tissue infections (20 sources) Cellulitis of lower limb; Translations: [Cellulitis of right lower limb] 12-12-2020 Episodic Sprains and strains (8 sources) Sprain of ankle; Translations: [Sprain of unspecified ligament of left ankle, initial encounter] 12-12-2020 Episodic Viral infection (16 sources) Disease caused by 2019-nCoV; Translations: [COVID-19] 07-16-2020 Episodic Comment on above: 2019 Past or Other Problems Problem Classification Problem Date Documented Da te Episodic/Chronic Allergic reactions (1 source) Latex allergy status; Translations: [Latex allergy status] Onset: 08-31-2021 Episodic Cardiac dysrhythmias (1 source) Palpitations; Translations: [Palpitations] Onset: 10-12-2024 Episodic Influenza (16 sources) Influenza 02-01-2022 Other screening for suspected conditions (not mental disorders or infectious disease) (13 sources) Patient encounter status; Translations: [Encounter for screening for malignant neoplasm of colon] Onset: 07-09-2024 Episodic Residual codes; unclassified (1 source) Localized edema; Translations: [Localized edema] Onset: 11-06-2024 Episodic Screening and history of mental health and substance abuse codes (1 source) Personal history of nicotine dependence; Translations: [Personal history of nicotine dependence] Onset: 08-31-2021 Episodic Spondylosis; intervertebral disc disorders; other back problems (9 sources) Torticollis; Translations: [Torticollis] Onset: 10-12-2024 10-06-2024 Episodic Unclassified (17 sources) Peripheral neuropathy 07-16-2020 Results Test Name Value Interpretation Reference Range Facility Immunoglobulin [place] 5 IMMUNOGLOB G QN 919 mg/dL Normal 586-1602 [facility] Comment on above: Result Comment: Perf ormed at: CB - [facility] [address] [id number] Young Adult Librarian: Osvaldo Rich PhD, Phone: [phone] Performed By: #### L 3200.1300, L100.0100, L593.2353 ####[facility] [address] [place], [address] Absolute lymphocyte countOrd ered By: VARUN SHAH on 02-05-2025 Lymphocytes Auto (Unsp spec) [#/Vol] 0.92 10*3/uL 0.83-4.51 [facility] Absolute neutrophil countOrd ered By: VARUN SHAH on 02-05-2025 Neutrophils (Bld) [#/Vol] 3.6 10*3/uL 2.0-7.7 [facility] Anion gap in Serum or Plasma Ordered By: VARUN SHAH on 02-05-2025 Anion gap [Moles/Vol] 14 mmol/L 5-15 [facility] Automated lymphocyte count a s percentage of total leukocytesOrdered By: VARUN SHAH on 02-05-2025 Lymphocytes/100 WBC Auto (Unsp spec) 17.1 % Low 19-41 [facility] BUN/creatinine ratioOrdered By: VARUN SHAH on 02-05-2025 Urea nitrogen/Creatinine [Mass ratio] 13.9 mg/mg 10-20 [facility] Basophil percentageOrdered B y: VARUN SHAH on 02-05-2025 Basophils/100 WBC (Bld) 0.9 % 0-1 [facility] Bilirubin, totalOrdered By: VARUN SHAH on 02-05-2025 Bilirubin [Mass/Vol] 0.52 mg/dL 0.00-1.30 [facility] CBC W/Diff, Automatedon 09-2 -2024 Absolute Lymph 0.92 X10 3/uL Normal 0.83-4.51 [facility] Comment on above: Performed By: #### L 3200.1300, L100.0100, L500.4050 ####[facility] [address] [place], [address] Absolute Neut 3.6 X10 3/uL Normal 2.0-7.7 [facility] Comment on above: Performed By: #### L 3200.1300, L100.0100, L500.4050 ####[facility] [address] [place], [address] Basophils/100 WBC (Bld) 0.9 % Normal 0-1 [facility] Comment on above: Performed By: #### L 3200.1300, L100.0100, L500.4050 ####[facility] [address] [place], [address] Eosinophils/100 WBC (Bld) 2.4 % Normal 0-5 [facility] Comment on above: Performed By: #### L 3200.1300, L100.0100, L500.4050 ####[facility] [address] [place], [address] Erythrocyte distribution width (RBC) [Ratio] 13.1 % Normal 11.6-14.6 [facility] Comment on above: Performed By: #### L 3200.1300, L100.0100, L500.4050 ####[facility] [address] [place], [address] Hematocrit (Bld) [Volume fraction] 41.0 % Normal 37-47 [facility] Comment on above: Performed By: #### L 3200.1300, L100.0100, L500.4050 ####[facility] [address] [place], [address] Hemoglobin (Bld) [Mass/Vol] 13.7 g/dL Normal 12.0-15.0 [facility] Comment on above: Performed By: #### L 3200.1300, L100.0100, L500.4050 ####[facility] [address] [place], [address] IG% 0.400 Normal 0.0-0.9 [facility] Comment on above: Result Comment: IG% - Immature Granulocytes (promyelocytes, myelocytes and metamyelocytes) > 1% indicates that a LEFT SHIFT is Present. Performed By: #### L 3200.1300, L100.0100, L500.4050 ####[facility] [address] [place], [address] Lymphocytes/100 WBC (Bld) 17.1 % Low 19-41 [facility] Comment on above: Performed By: #### L 3200.1300, L100.0100, L500.4050 ####[facility] [address] [place], [address] MCH (RBC) [Entitic mass] 32.1 pg High 27.0-32.0 [facility] Comment on above: Performed By: #### L 3200.1300, L100.0100, L500.4050 ####[facility] [address] [place], [address] MCHC (RBC) [Mass/Vol] 33.4 g/dL Normal 32-36 [facility] Comment on above: Performed By: #### L 3200.1300, L100.0100, L500.4050 ####[facility] [address] [place], [address] MCV (RBC) [Entitic vol] 96.0 fL Normal 81-99 [facility] Comment on above: Performed By: #### L 3200.1300, L100.0100, L500.4050 ####[facility] [address] [place], [address] Monocytes/100 WBC (Bld) 11.4 % High 0-10 [facility] Comment on above: Performed By: #### L 3200.1300, L100.0100, L500.4050 ####[facility] [address] [place], [address] Neutrophils/100 WBC (Bld) 67.8 % Normal 47-70 [facility] Comment on above: Performed By: #### L 3200.1300, L100.0100, L500.4050 ####[facility] [address] [place], [address] Nucleated RBC (Bld) [#/Vol] 0 10*3/uL Normal 0-5 [facility] Comment on above: Performed By: #### L 3200.1300, L100.0100, L500.4050 ####[facility] [address] [place], [address] Platelet mean volume (Bld) [Entitic vol] 11.5 fL Normal 6.2-12.0 [facility] Comment on above: Performed By: #### L 3200.1300, L100.0100, L500.4050 ####[facility] [address] [place], [address] Platelets (Bld) [#/Vol] 178 10*3/uL Normal 150-450 [facility] Comment on above: Performed By: #### L 3200.1300, L100.0100, L500.4050 ####[facility] [address] [place], [address] RBC (Bld) [#/Vol] 4.27 10*6/uL Normal 4.2-5.4 [facility] Comment on above: Performed By: #### L 3200.1300, L100.0100, L500.4050 ####[facility] [address] [place], [address] RDW SD 46.5 fl High 35.1-43.9 [facility] Comment on above: Performed By: #### L 3200.1300, L100.0100, L500.4050 ####[facility] [address] [place], [address] WBC (Bld) [#/Vol] 5.4 10*3/uL Normal 4.4-11.0 [facility] Comment on above: Performed By: #### L 3200.1300, L100.0100, L500.4050 ####[facility] [address] [place], [address] Carbon dioxide, total [Moles /volume] in Central venous bloodOrdered By: VARUN SHAH on 02-05-2025 CO2 [Moles/Vol] 24.8 mmol/L 21.0-32.0 [facility] Chloride assayOrdered By: HUE SHAH on 02-05-2025 Chloride [Moles/Vol] 103 mmol/L 98-108 [facility] Comprehensive Metabolic Prof ilon 02-05-2025 Albumin [Mass/Vol] 4.4 g/dL Normal 3.4-4.8 [facility] Comment on above: Performed By: #### L 3200.1300, L100.0100, L500.4050 ####[facility] [address] [place], [address] Albumin/Globulin [Mass ratio] 1.6 {ratio} Normal 0.9-2.4 [facility] Comment on above: Performed By: #### L 3200.1300, L100.0100, L500.4050 ####[facility] [address] [place], [address] ALK PHOS 136 U/L High 35-104 [facility] Comment on above: Performed By: #### L 3200.1300, L100.0100, L500.4050 ####[facility] [address] [place], [address] ALT [Catalytic activity/Vol] 18 U/L Normal <=34 [facility] Comment on above: Performed By: #### L 3200.1300, L100.0100, L500.4050 ####[facility] [address] [place], [address] AST [Catalytic activity/Vol] 26 U/L Normal <=31 [facility] Comment on above: Performed By: #### L 3200.1300, L100.0100, L500.4050 ####[facility] [address] [place], [address] Bilirubin [Mass/Vol] 0.52 mg/dL Normal 0.00-1.30 [facility] Comment on above: Performed By: #### L 3200.1300, L100.0100, L500.4050 ####[facility] [address] [place], [address] BUN/CRE 13.9 RATIO Normal 10-20 [facility] Comment on above: Performed By: #### L 3200.1300, L100.0100, L500.4050 ####[facility] [address] [place], [address] Calcium [Mass/Vol] 9.4 mg/dL Normal 7.6-11.0 [facility] Comment on above: Performed By: #### L 3200.1300, L100.0100, L500.4050 ####[facility] [address] [place], [address] Chloride [Moles/Vol] 103 mmol/L Normal 98-108 [facility] Comment on above: Performed By: #### L 3200.1300, L100.0100, L500.4050 ####[facility] [address] [place], [address] CO2 [Moles/Vol] 24.8 mmol/L Normal 21.0-32.0 [facility] Comment on above: Performed By: #### L 3200.1300, L100.0100, L500.4050 ####[facility] [address] [place], [address] Creatinine [Mass/Vol] 1.05 mg/dL Normal 0.70-1.20 [facility] Comment on above: Performed By: #### L 3200.1300, L100.0100, L500.4050 ####[facility] [address] [place], [address] GAP 14 Normal 5-15 [facility] Comment on above: Performed By: #### L 3200.1300, L100.0100, L500.4050 ####[facility] [address] [place], [address] GFR/1.73 sq M.predicted among non-blacks MDRD (S/P/Bld) [Vol rate/Area] 58 mL/min/{1.73_m2} Low >60 [facility] Comment on above: Result Comment: mL/m in/1.73m2 CKD-EPI Creatinine Equation (2020) Performed By: #### L 3200.1300, L100.0100, L500.4050 ####[facility] [address] [place], [address] Globulin (S) [Mass/Vol] 2.7 g/dL Normal 2.2-4.2 [facility] Comment on above: Performed By: #### L 3200.1300, L100.0100, L500.4050 ####[facility] [address] [place], [address] Glucose [Mass/Vol] 90 mg/dL Normal 70-99 [facility] Comment on above: Performed By: #### L 3200.1300, L100.0100, L500.4050 ####[facility] [address] [place], [address] Potassium [Moles/Vol] 3.9 mmol/L Normal 3.3-5.1 [facility] Comment on above: Performed By: #### L 3200.1300, L100.0100, L500.4050 ####[facility] [address] [place], [address] Sodium [Moles/Vol] 142 mmol/L Normal 133-145 [facility] Comment on above: Performed By: #### L 3200.1300, L100.0100, L500.4050 ####[facility] [address] [place], [address] T PROT 7.0 g/dL Normal 5.9-8.4 [facility] Comment on above: Performed By: #### L 3200.1300, L100.0100, L500.4050 ####[facility] [address] [place], [address] Urea nitrogen [Mass/Vol] 15 mg/dL Normal 4-19 [facility] Comment on above: Performed By: #### L 3200.1300, L100.0100, L500.4050 ####[facility] [address] [place], [address] Eosinophil percentageOrdered By: VARUN SHAH on 02-05-2025 Eosinophils/100 WBC (Bld) 2.4 % 0-5 [facility] Erythrocyte distribution wid th ratioOrdered By: VARUN SHAH on 02-05-2025 Erythrocyte distribution width (RBC) [Ratio] 13.1 % 11.6-14.6 [facility] Erythrocyte distribution wid th standard deviationOrdered By: VARUN SHAH on 02-05-2025 Erythrocyte distribution width (RBC) [Ratio] 46.5 fl High 35.1-43.9 [facility] Glomerular filtration rate ( GFR) estimation/1.73 sq m using serum, plasma, or whole bOrdered By: VARUN SHAH on 02-05-2025 GFR/1.73 sq M.predicted among non-blacks MDRD (S/P/Bld) [Vol rate/Area] 58 mL/min/{1.73_m2} Low >60 [facility] Comment on above: mL/min/1.73m2 CKD-EP I Creatinine Equation (2020) Hematocrit Auto (Bld) [Volum e fraction]Ordered By: VARUN SHAH on 02-05-2025 Hematocrit (Bld) [Volume fraction] 41.0 % 37-47 [facility] Hemoglobin measurementOrdere d By: VARUN SHAH on 02-05-2025 Hemoglobin (Bld) [Mass/Vol] 13.7 g/dL 12.0-15.0 [facility] Immature granulocytes/100 WB C Auto (Bld)Ordered By: VAURN SHAH 02-05-2025 Immature granulocytes/100 WBC (Bld) 0.400 % 0.0-0.9 [facility] Comment on above: IG% - Immature Granu locytes (promyelocytes, myelocytes and metamyelocytes) > 1% indicates that a LEFT SHIFT is Present. Laboratory - Chemistry and C hemistry - challengeOrdered By: VARUN SHAH on 02-05-2025 AST [Catalytic activity/Vol] 26 U/L <32 [facility] MCV (mean corpuscular volume ) determinationOrdered By: VARUN SHAH 02-05-2025 MCV (RBC) [Entitic vol] 96.0 fL 81-99 [facility] Mean corpuscular hemoglobin (MCH) determinationOrdered By: VARUN SHAH 02-05-2025 MCH (RBC) [Entitic mass] 32.1 pg High 27.0-32.0 [facility] Mean corpuscular hemoglobin concentration (MCHC) determinationOrdered By: VARUN SHAH 02-05-2025 MCHC (RBC) [Mass/Vol] 33.4 g/dL 32-36 [facility] Mean platelet volume determi nationOrdered By: VARUN SHAH 02-05-2025 Platelet mean volume (Bld) [Entitic vol] 11.5 fL 6.2-12.0 [facility] Monocyte percentageOrdered B y: VARUN SHAH on 02-05-2025 Monocytes/100 WBC (Bld) 11.4 % High 0-10 [facility] Neutrophil percentageOrdered By: VARUN SHAH on 02-05-2025 Neutrophils/100 WBC (Bld) 67.8 % 47-70 [facility] Nucleated red blood cell per centageOrdered By: VARUN SHAH on 02-05-2025 Nucleated RBC/100 WBC (Bld) [Ratio] 0 % 0-5 [facility] Platelet countOrdered By: HUE SHAH on 02-05-2025 Platelets (Bld) [#/Vol] 178 10*3/uL 150-450 [facility] Potassium measurement (mass/ volume)Ordered By: VARUN SHAH on 02-05-2025 Potassium (Unsp spec) [Mass/Vol] 3.9 mmol/L 3.3-5.1 [facility] RBC Auto (Bld) [#/Vol]Ordere d By: VARUN SHAH on 02-05-2025 RBC (Bld) [#/Vol] 4.27 10*6/uL 4.2-5.4 [facility] Serum creatinine measurement (mass/volume)Ordered By: VARUN SHAH on 02-05-2025 Creatinine [Mass/Vol] 1.05 mg/dL 0.70-1.20 [facility] Serum globulin measurementOr dered By: VARUN SHAH on 02-05-2025 Globulin (S) [Mass/Vol] 2.7 g/dL 2.2-4.2 [facility] Serum glucose measurement (m ass/volume)Ordered By: VARUN SHAH on 02-05-2025 Glucose [Mass/Vol] 90 mg/dL 70-99 [facility] Serum or plasma IgG measurem ent (mass/volume)Ordered By: VARUN SHAH on 02-05-2025 IgG [Mass/Vol] 919 mg/dL 586-1602 [facility] Comment on above: Performed at: [address] [id number] Director: Osvaldo Rich PhD, Phone: [phone] Serum or plasma alanine adames otransferase (ALT) measurementOrdered By: VARUN SHAH on 02-05-2025 ALT [Catalytic activity/Vol] 18 U/L <35 [facility] Serum or plasma albumin angie urement (mass/volume)Ordered By: VARUN SHAH on 02-05-2025 Albumin [Mass/Vol] 4.4 g/dL 3.4-4.8 [facility] Serum or plasma albumin/glob ulin mass ratioOrdered By: VARUN SHAH on 02-05-2025 Albumin/Globulin [Mass ratio] 1.6 {ratio} 0.9-2.4 [facility] Serum or plasma alkaline pedro sphatase measurementOrdered By: VARUN SHAH on 02-05-2025 ALP [Catalytic activity/Vol] 136 U/L High 35-104 [facility] Serum or plasma calcium angie urement (mass/volume)Ordered By: VARUN SHAH on 02-05-2025 Calcium [Mass/Vol] 9.4 mg/dL 7.6-11.0 [facility] Serum or plasma urea nitroge n measurement (mass/volume)Ordered By: VARUN SHAH on 02-05-2025 Urea nitrogen [Mass/Vol] 15 mg/dL 4-19 [facility] Sodium levelOrdered By: SARAH SHAH on 02-05-2025 Sodium [Moles/Vol] 142 mmol/L 133-145 [facility] Total proteinOrdered By: KWADWO SHAH on 02-05-2025 Protein [Mass/Vol] 7.0 g/dL 5.9-8.4 [facility] White blood cell (WBC) count Ordered By: VARUN SHAH on 02-05-2025 WBC (Bld) [#/Vol] 5.4 10*3/uL 4.4-11.0 [facility] Brain/Head without Contrasto n 10-07-2024 Brain/Head without Contrast [facility] Imaging Services [address] [place] [address] Brain/Head without Contrast MR#: [id number] Acct: [id number] Name: MARIA LUISA VILLALOBOS Rep #: [id number] : 1955 F 68 From: Gin Diaz nd, MD PCP: Dr. Walt La DO Status: REG ER Study: Brain/Head without Contrast Date of Exam: 09/14 10/07 Exam# [id number] Ordering Dr: Landon Pedraza DO EXAM: BRAIN/HEAD WITHOUT CONTRAST CLINICAL HISTORY: 68 y/o F with HEADACHE. COMPARISON: None. TECHNIQUE: Routine CT imaging of the head without IV contrast. Additional multiplanar reformats were obtained. Dose reduction techniques were used including intermediate exposure control (AEC),iterative reconstruction technique, and/or mA and/or KV dose adjustments based on patient's size. FINDINGS: The ventricles and subarachnoid spaces are normal for patient age. Mild patchy supratentorial white matter hypodensities. Tiny lacunar type infarct within the right caudate head. No acute intracranial hemorrhage or herniation. The basal cisterns are patent. Prior ocular lens replacements. Retention cyst or polyp within the right maxillary sinus. Prior left FESS. The mastoids are unremarkable. No acute calvarial fracture or scalp hematoma. CT/Brain/Head without Contrast IMPRESSION: No acute intracranial finding. Reading Location: [facility] CC: Dr. Walt La DO; Dr. Landon Pedraza DO Char Conveyor Tender: Signed Normal [facility] Emergency Department Summary on 10-07-2024 Emergency Department Summary [facility] Medical Records Department [address] [place] [id number] Emergency Department Summary 10/07/24 MR#: [id number] Acct: [id number] Name: MARIA LUISA VILLALOBOS Rep #: [id number] : 1955 68 From: Landon Lang PCP: Dr. Walt La DO Status:[facility] ER Location: ED HPI History of Present Illness Chief Complaint: Back Informant: patient and spouse/S.O. Narrative Narrative: History of multiple sclerosis presents here similar for evaluation worsening neck and upper back pain mild headache for the last couple days. Awaking yesterday left-sided pain was seen in the ED treated symptomatically states no improvement of symptoms. She is on multiple muscle relaxers including baclofen amantadine and clonazepam. States no relief. She takes clonazepam at night. Reports pain down her left arm and now pain on the right side to her shoulder. Denies nausea or vomiting. She can weight-bear transfer multiple mobility devices putting chairs and scooters. She sees neurology with her MS since 2003 gets infusions every 6 months her last infusion was 3 days ago. States this feels different than her spasms. She is not a diabetic. [facility] Medical History History of migraine headaches Bimalleolar avulsion fracture of right ankle Osteopenia History of gastric polyp Bimalleolar fracture of right ankle Anxiety Difficulty swallowing History of GI bleed Gastric reflux Shortness of breath on exertion Former smoker History of stress test Hypertension HTN (hypertension) Acid reflux Multiple sclerosis COVID-19 Peripheral neuropathy Exacerbation of multiple sclerosis Home Medications ???Medication ???Instructions ???Recorded ???Last Taken ???Type amitriptyline 100 mg tablet 100 mg PO QHS DEPRESSION 08/04/14 11/11/22 History atenolol 50 mg tablet 50 mg PO DAILY BLOOD PRESSURE 07/1511/12/22 History atenolol 50 mg tablet 75 mg PO QHS BLOOD PRESSURE 11/11/22 History baclofen 20 mg tablet 30 mg PO TID MS 08/04/14 11/12/22 History cholecalciferol (vitamin D3) 1,250 50,000 unit PO TUTH Supplement 0 08/04/14 11/11/22 History mcg (50,000 unit) capsule cyanocobalamin (vitamin B-12) 100 mcg IM Q30D SUPPLEMENT 5 10/18/22 10:00 History 1,000 mcg/mL injection solution ibuprofen 200 mg tablet 400 mg PO DAILY PAIN 08/04/1410/16 History amantadine HCl 100 mg capsule 100 mg PO BID SPASMS 09/04/1810/16 History bumetanide 2 mg tablet 2 mg PO DAILY fluid pill #1 TAB 11/12/22 Rx clonazepam 0.5 mg tablet 0.5 mg PO QHS PRN Spasms 30 days 0 11/17/22 Unknown Rx #30 tabs potassium chloride 20 mEq 20 meq PO BIDCM 30 days #60 tabs 0 11/17/22 Unknown Rx tablet,extended release(part/cryst) (Klor-Con M) tramadol 50 mg tablet 50 mg PO Q6H PRN PRN Pain 1-10 7 0 11/17/22 Unknown Rx days #28 tabs mupirocin 2 % topical ointment 1 applic topical 0600,2200 PRN Unknown History blisters omeprazole 20 mg capsule,delayed 20 mg PO BID 10/06/24 Unknown Hist ory release ketorolac 10 mg tablet 10 mg PO Q8H PRN pain 1 day #20 Unknown Rx tabs oxycodone-acetaminophen 5 mg-325 1 tab PO Q6H PRN PRN Pain 3 days 0 10/07/24 Unknown Rx mg tablet #12 TABLETS prednisone 20 mg tablet 60 mg (3 x 20 mg) PO DAILY #12 Unknown Rx TABLETS Allergy/AdvReac Type Severity Reaction Status Date / Time adhesive AdvReac RED Verified 10/07/24 16:02 amlodipine besylate (From AdvReac Nausea Verified 10/07/24 16:02 Lotrel) benazepril HCl (From Lotrel) AdvReac Nausea Verified 10/07/24 16:02 codeine AdvReac Nausea Verified 10/07/24 16:02 latex AdvReac RED Verified 10/07/24 16:02 Penicillins AdvReac Nausea Verified 10/07/24 16:02 Family History Brother Diabetes Heart disease Kidney disease Cancer Mother Diabetes Hypertension Thyroid disorder VTE (venous thromboembolism) Son VTE (venous thromboembolism) Surgical History History of open reduction and internal fixation (ORIF) procedure History of colonoscopy History of surgical procedure on mouth History of skin surgery History of hysterectomy History of cataract surgery Social History household members: spouse housing: house pets and animals: Yes Smoking Status: Former smoker pack-years: 35 Tobacco: How many years used: 35 how long ago did patient quit smoking: quit smoking in 2008 and started as a teenager. alcohol intake: never substance use type: does not use additional social history: uses ibuprofen daily ROS ROS ED Constitutional Constitutional ED: Denies chills, fever(s) or swe (more content not included)... Normal [facility] Spine Cervical without Contr ason 10-07-2024 Spine Cervical without Contras [facility] Imaging Services [address] [place] [address] Spine Cervical without Contras MR#: [id number] Acct: [id number] Name: MARIA LUISA VILLALOBOS Rep #: [id number] : 1955 From: Gin Diaz nd, MD PCP: Dr. Walt La DO Status: REG ER Study: Spine Cervical without Contras Date of Exam: 0 10/07/24 Exam# [id number] Ordering Dr: Landon Pedraza DO PROCEDURE: SPINE CERVICAL WITHOUT CONTRAS 10/07/2024 REASON FOR EXAM: NECK PAIN TECHNIQUE: Cervical spine CT without contrast. Coronal and Sagittal reconstruction series were provided. One or more dose reduction techniques were used (e.g., Automated exposure control, adjustment of the mA and/or kV according to patient size, use of iterative reconstruction technique RADIATION DOSE SUMMARY: See CT head for radiation values. COMPARISON: None. FINDINGS: Alignment: No traumatic listhesis. There is straightening of the normal cervical lordosis. Vertebrae: No acute fracture. Mild multilevel vertebral body height loss. Mild multilevel degenerative disc disease. Soft Tissues: No prevertebral hematoma. CT/Spine Cervical without Contras IMPRESSION: NO ACUTE CERVICAL FRACTURE. DEGENERATIVE CHANGES. Reading Location: [facility] CC: Dr. Walt La DO; Dr. Landon Pedraza DO Char Conveyor Tender: Signed Normal [facility] Spine Thoracic without Contr ason 10-07-2024 Spine Thoracic without Contras [facility] Imaging Services [address] [place], [place] [id number] Spine Thoracic without Contras MR#: [id number] Acct: [id number] Name: MARIA LUISA VILLALOBOS Rep #: [id number] : 1955 From: Gin Diaz nd, MD PCP: Dr. Walt La DO Status: REG ER Study: Spine Thoracic without Contras Date of Exam: 0 10/07/24 Exam# [id number] Ordering Dr: Landon Pedraza DO PROCEDURE: SPINE THORACIC WITHOUT CONTRAS REASON FOR EXAM: PAIN TECHNIQUE: Thoracic spine CT without contrast. Coronal and Sagittal reconstruction series were provided. One or more dose reduction techniques were used (e.g., Automated exposure control, adjustment of the mA and/or kV according to patient size, use of iterative reconstruction technique). RADIATION DOSE SUMMARY: See CT head for discussion of radiation dosages. COMPARISON: None. FINDINGS: Alignment: No traumatic listhesis. Bones: Normal thoracic vertebral heights. No acute fracture. Mild multilevel degenerative disc disease. No suspicious lytic or blastic lesion. Soft Tissues: No soft tissue hematoma. Other: Emphysema and scattered areas of scarring. Calcific plaque of the coronary arteries, thoracic and abdominal aorta. CT/Spine Thoracic without Contras IMPRESSION: NO ACUTE THORACIC FRACTURE. DEGENERATIVE CHANGES. Reading Location: [id number] CC: Dr. Watl La DO; Dr. Landon Pedraza DO Char Conveyor Tender: Signed Normal [facility] 12 Lead EKGon 10-06-2024 12 Lead EKG [facility] Cardiovascular Services [address] [place] [address] 12 Lead EKG 10/06/24 2112 MR#: [id number] Acct: [id number] Name: MARIA LUISA VILLALOBOS Rep #: [id number] : 1955 68 From: Luis Hay MD Attending Dr: Dr. Christine Kennedy DO Status: DEP ER Ordering Dr: Christine Kennedy DO Date: 10/06/24 Location: ED Sex: F C Admitted: Test Reason : PALPS Blood Pressure : */* mmHG Vent. Rate : 77 BPM Atrial Rate : 77 BPM P-R Int : 156 ms QRS Dur : 94 ms QT Int : 398 ms P-R-T Axes : 51 39 26 degrees QTcB Int : 450 ms Normal sinus rhythm MINOR Nonspecific ST abnormality Abnormal ECG Confirmed by Luis Hay ([id number]), desk editor TIMA SHIN ([id number]) on 10/15/2024 1:03:36 PM Referred By: Confirmed By: Luis Hay 10/15/24 1303 Date Luis Hay MD CC: Dr. Christine Kennedy DO; Dr. Walt La DO Signed Normal [facility] Absolute lymphocyte countOrd ered By: Christine Kennedy on 10-06-2024 Lymphocytes Auto (Unsp spec) [#/Vol] 1.00 10*3/uL 0.83-4.51 [facility] Absolute neutrophil countOrd ered By: Christine Kennedy on 10-06-2024 Neutrophils (Bld) [#/Vol] 6.6 10*3/uL 2.0-7.7 [facility] Anion gap in Serum or Plasma Ordered By: Christine Kennedy on 10-06-2024 Anion gap [Moles/Vol] 13 mmol/L 5- [facility] Automated lymphocyte count a s percentage of total leukocytesOrdered By: Christine Kennedy on 10-06-2024 Lymphocytes/100 WBC Auto (Unsp spec) 11.2 % Low 19-41 [facility] BUN/creatinine ratioOrdered By: Christine Kennedy on 10-06-2024 Urea nitrogen/Creatinine [Mass ratio] 16.3 mg/mg 10- [facility] Basic Metabolic Profile (BMP )on 10-06-2024 BUN/CRE 16.3 RATIO Normal - [facility] Comment on above: Performed By: #### L 501.5200, L100.0100, L500.2500 #### [facility] [address] [place], [address] Calcium [Mass/Vol] 9.2 mg/dL Normal 7.6-11.0 [facility] Comment on above: Performed By: #### L 501.5200, L100.0100, L500.2500 #### [facility] [address] [place], [address] Chloride [Moles/Vol] 105 mmol/L Normal 98-108 [facility] Comment on above: Performed By: #### L 501.5200, L100.0100, L500.2500 #### [facility] [address] [place], [address] CO2 [Moles/Vol] 27.1 mmol/L Normal 21.0-32.0 [facility] Comment on above: Performed By: #### L 501.5200, L100.0100, L500.2500 #### [facility] [address] [place], [address] Creatinine [Mass/Vol] 1.00 mg/dL Normal 0.70-1.20 [facility] Comment on above: Performed By: #### L 501.5200, L100.0100, L500.2500 #### [facility] [address] [place], [address] ECRCL 63.89 ml/min Normal 50-250 [facility] Comment on above: Performed By: #### L 501.5200, L100.0100, L500.2500 #### [facility] [address] [place], [address] GAP 13 Normal 5-15 [facility] Comment on above: Performed By: #### L 501.5200, L100.0100, L500.2500 #### [facility] [address] [place], [address] GFR/1.73 sq M.predicted among non-blacks MDRD (S/P/Bld) [Vol rate/Area] 62 mL/min/{1.73_m2} Normal >60 [facility] Comment on above: Result Comment: mL/m in/1.73m2 CKD-EPI Creatinine Equation (2020) Performed By: #### L 501.5200, L100.0100, L500.2500 #### [facility] [address] [place], [address] Glucose [Mass/Vol] 104 mg/dL High 70-99 [facility] Comment on above: Performed By: #### L 501.5200, L100.0100, L500.2500 #### [facility] [address] [place], [address] Potassium [Moles/Vol] 3.3 mmol/L Normal 3.3-5.1 [facility] Comment on above: Performed By: #### L 501.5200, L100.0100, L500.2500 #### [facility] [address] [place], [address] Sodium [Moles/Vol] 144 mmol/L Normal 133-145 [facility] Comment on above: Performed By: #### L 501.5200, L100.0100, L500.2500 #### [facility] [address] [place], [address] Urea nitrogen [Mass/Vol] 16 mg/dL Normal 4-19 [facility] Comment on above: Performed By: #### L 501.5200, L100.0100, L500.2500 #### [facility] [address] [place], [address] Basophil percentageOrdered B y: Christineadria Kennedy on 10-06-2024 Basophils/100 WBC (Bld) 0.7 % 0-1 [facility] CBC W/Diff, Automatedon 09-14 Absolute Lymph 1.00 X10 3/uL Normal 0.83-4.51 [facility] Comment on above: Performed By: #### L 501.5200, L100.0100, L500.2500 #### [facility] [address] [place], [address] Absolute Neut 6.6 X10 3/uL Normal 2.0-7.7 [facility] Comment on above: Performed By: #### L 501.5200, L100.0100, L500.2500 #### [facility] [address] [place], [address] Basophils/100 WBC (Bld) 0.7 % Normal 0-1 [facility] Comment on above: Performed By: #### L 501.5200, L100.0100, L500.2500 #### [facility] [address] [place], [address] Eosinophils/100 WBC (Bld) 1.9 % Normal 0-5 [facility] Comment on above: Performed By: #### L 501.5200, L100.0100, L500.2500 #### [facility] [address] [place], [address] Erythrocyte distribution width (RBC) [Ratio] 13.6 % Normal 11.6-14.6 [facility] Comment on above: Performed By: #### L 501.5200, L100.0100, L500.2500 #### [facility] [address] [place], [address] Hematocrit (Bld) [Volume fraction] 39.8 % Normal 37-47 [facility] Comment on above: Performed By: #### L 501.5200, L100.0100, L500.2500 #### [facility] [address] [place], [address] Hemoglobin (Bld) [Mass/Vol] 13.1 g/dL Normal 12.0-15.0 [facility] Comment on above: Performed By: #### L 501.5200, L100.0100, L500.2500 #### [facility] [address] [place], [address] IG% 0.400 Normal 0.0-0.9 [facility] Comment on above: Result Comment: IG% - Immature Granulocytes (promyelocytes, myelocytes and metamyelocytes) > 1% indicates that a LEFT SHIFT is Present. Performed By: #### L 501.5200, L100.0100, L500.2500 #### [facility] [address] [place], [address] Lymphocytes/100 WBC (Bld) 11.2 % Low 19-41 [facility] Comment on above: Performed By: #### L 501.5200, L100.0100, L500.2500 #### [facility] [address] [place], [address] MCH (RBC) [Entitic mass] 31.7 pg Normal 27.0-32.0 [facility] Comment on above: Performed By: #### L 501.5200, L100.0100, L500.2500 #### [facility] [address] [place], [address] MCHC (RBC) [Mass/Vol] 32.9 g/dL Normal 32-36 [facility] Comment on above: Performed By: #### L 501.5200, L100.0100, L500.2500 #### [facility] [address] [place], [address] MCV (RBC) [Entitic vol] 96.4 fL Normal 81-99 [facility] Comment on above: Performed By: #### L 501.5200, L100.0100, L500.2500 #### [facility] [address] [place], [address] Monocytes/100 WBC (Bld) 12.1 % High 0-10 [facility] Comment on above: Performed By: #### L 501.5200, L100.0100, L500.2500 #### [facility] [address] [place], [address] Neutrophils/100 WBC (Bld) 73.7 % High 47-70 [facility] Comment on above: Performed By: #### L 501.5200, L100.0100, L500.2500 #### [facility] [address] [place], [address] Nucleated RBC (Bld) [#/Vol] 0 10*3/uL Normal 0-5 [facility] Comment on above: Performed By: #### L 501.5200, L100.0100, L500.2500 #### [facility] [address] [place], [address] Platelet mean volume (Bld) [Entitic vol] 11.1 fL Normal 6.2-12.0 [facility] Comment on above: Performed By: #### L 501.5200, L100.0100, L500.2500 #### [facility] [address] [place], [address] Platelets (Bld) [#/Vol] 153 10*3/uL Normal 150-450 [facility] Comment on above: Performed By: #### L 501.5200, L100.0100, L500.2500 #### [facility] [address] [place], [address] RBC (Bld) [#/Vol] 4.13 10*6/uL Low 4.2-5.4 [facility] Comment on above: Performed By: #### L 501.5200, L100.0100, L500.2500 #### [facility] [address] [place], [address] RDW SD 48.6 fl High 35.1-43.9 [facility] Comment on above: Performed By: #### L 501.5200, L100.0100, L500.2500 #### [facility] [address] [place], [address] WBC (Bld) [#/Vol] 9.0 10*3/uL Normal 4.4-11.0 [facility] Comment on above: Performed By: #### L 501.5200, L100.0100, L500.2500 #### [facility] [address] [place], [address] Carbon dioxide, total [Moles /volume] in Central venous bloodOrdered By: Christine Kennedy on 10-06-2024 CO2 [Moles/Vol] 27.1 mmol/L 21.0-32.0 [facility] Chloride assayOrdered By: Tyler Kennedy on 10-06-2024 Chloride [Moles/Vol] 105 mmol/L 98-108 [facility] Emergency Department Summary on 10-06-2024 Emergency Department Summary [facility] Medical Records Department [address] [place] [address] Emergency Department Summary 10/06/24 MR#: [id number] Acct: [id number] Name: MARIA LUISA VILLALOBOS Rep #: [id number] : 1955 68 From: Christine Kennedy DO PCP: Dr. Walt La, Status:REG ER Location: ED HPI History of Present Illness Chief Complaint: Palpitations Informant: patient and spouse/S.O. Narrative Narrative: Patient is a 68-year-old female with relatively complex medical history including MS, chronic pain, thrombocytopenia, ulcerative pyoderma gangrenosum presenting with headache and left-sided neck pain. She states that she woke up this morning with what felt like a developing migraine headache that started pain in the left side of her neck that moved to her left shoulder. She took a tramadol and Imitrex with mild improvement of her headache but the neck and shoulder pain persisted. Pain is worse with movement of her neck and shoulder. She denies any associated injury. Denies any rash. Has some chronic tingling of her hand but attributes that to carpal tunnel and has no acute change in that today. Denies any associated vision changes, speech changes or weakness. Denies any chest pain. Did tell triage that she had an episode of palpitations in her chest but then goes on to tell me that happens for her to time to time and it is not an acute thing today. Patient did have an infusion for her MS on , 3 days ago. She also received steroids at this time. The medication was Ocrevus. She states she has had this infusion before. She is not sure if this is a side effect. Follows with neurology through the [facility] in [place]. No other acute complaints at this time. Does note that she has chronic edema and has been slightly worse recently and she had some pressure blisters but those have been improving. She denies any shortness of breath or difficulty breathing. [facility] Medical History History of migraine headaches Bimalleolar avulsion fracture of right ankle Osteopenia History of gastric polyp Bimalleolar fracture of right ankle Anxiety Difficulty swallowing History of GI bleed Gastric reflux Shortness of breath on exertion Former smoker History of stress test Hypertension HTN (hypertension) Acid reflux Multiple sclerosis COVID-19 Peripheral neuropathy Exacerbation of multiple sclerosis Home Medications ???Medication ???Instructions ???Recorded ???Last Taken ???Type amitriptyline 100 mg tablet 100 mg PO QHS DEPRESSION 08/04/14 11/11/22 History atenolol 50 mg tablet 50 mg PO DAILY BLOOD PRESSURE 07/1511/12/22 History atenolol 50 mg tablet 75 mg PO QHS BLOOD PRESSURE 11/11/22 History baclofen 20 mg tablet 30 mg PO TID MS 08/04/14 11/12/22 History cholecalciferol (vitamin D3) 1,250 50,000 unit PO TUTH Supplement 0 08/04/14 11/11/22 History mcg (50,000 unit) capsule cyanocobalamin (vitamin B-12) 100 mcg IM Q30D SUPPLEMENT 5 10/18/22 10:00 History 1,000 mcg/mL injection solution ibuprofen 200 mg tablet 400 mg PO DAILY PAIN 08/04/1410/16 History amantadine HCl 100 mg capsule 100 mg PO BID SPASMS 09/04/1810/16 History bumetanide 2 mg tablet 2 mg PO DAILY fluid pill #1 TAB 11/12/22 Rx clonazepam 0.5 mg tablet 0.5 mg PO QHS PRN Spasms 30 days 0 11/17/22 Unknown Rx #30 tabs potassium chloride 20 mEq 20 meq PO BIDCM 30 days #60 tabs 0 11/17/22 Unknown Rx tablet,extended release(part/cryst) (Klor-Con M) tramadol 50 mg tablet 50 mg PO Q6H PRN PRN Pain 1-10 7 0 11/17/22 Unknown Rx days #28 tabs mupirocin 2 % topical ointment 1 applic topical 0600,2200 PRN Unknown History blisters omeprazole 20 mg capsule,delayed 20 mg PO BID 10/06/24 Unknown Hist ory release Allergy/AdvReac Type Severity Reaction Status Date / Time adhesive AdvReac RED Verified 10/06/24 21:00 amlodipine besylate (From AdvReac Nausea Verified 10/06/24 21:00 Lotrel) benazepril HCl (From Lotrel) AdvReac Nausea Verified 10/06/24 21:00 codeine AdvReac Nausea Verified 10/06/24 21:00 latex AdvReac RED Verified 10/06/24 21:00 Penicillins AdvReac Nausea Verified 10/06/24 21:00 Family History Brother Diabetes Heart disease Kidney disease Cancer Mother Diabetes Hypertension Thyroid disorder VTE (venous thromboembolism) Son VTE (venous thromboembolism) Surgical History History of open reduction and internal fixation (ORIF) procedure History of colonoscopy History of surgical procedure on mouth History of skin surgery History of hysterectomy History of cataract surgery Social History (Reviewed (more content not included)... Normal [facility] Eosinophil percentageOrdered By: Christine Kennedy on 10-06-2024 Eosinophils/100 WBC (Bld) 1.9 % 0-5 [facility] Erythrocyte distribution wid th ratioOrdered By: Christine Kennedy on 10-06-2024 Erythrocyte distribution width (RBC) [Ratio] 13.6 % 11.6-14.6 [facility] Erythrocyte distribution wid th standard deviationOrdered By: Christine Kennedy on 10-06-2024 Erythrocyte distribution width (RBC) [Ratio] 48.6 fl High 35.1-43.9 [facility] Glomerular filtration rate ( GFR) estimation/1.73 sq m using serum, plasma, or whole bOrdered By: Christine Kennedy on 10-06-2024 GFR/1.73 sq M.predicted among non-blacks MDRD (S/P/Bld) [Vol rate/Area] 62 mL/min/{1.73_m2} >60 [facility] Comment on above: mL/min/1.73m2 CKD-EP I Creatinine Equation (2020) Hematocrit Auto (Bld) [Volum e fraction]Ordered By: Christine Kennedy on 10-06-2024 Hematocrit (Bld) [Volume fraction] 39.8 % 37-47 [facility] Hemoglobin measurementOrdere d By: Christine Kennedy on 10-06-2024 Hemoglobin (Bld) [Mass/Vol] 13.1 g/dL 12.0-15.0 [facility] Immature granulocytes/100 WB C Auto (Bld)Ordered By: Christine Kennedy on 10-06-2024 Immature granulocytes/100 WBC (Bld) 0.400 % 0.0-0.9 [facility] Comment on above: IG% - Immature Granu locytes (promyelocytes, myelocytes and metamyelocytes) > 1% indicates that a LEFT SHIFT is Present. MCV (mean corpuscular volume ) determinationOrdered By: Christine Kennedy on 10-06-2024 MCV (RBC) [Entitic vol] 96.4 fL 81-99 [facility] Magnesiumon 10-06-2024 Magnesium [Mass/Vol] 1.9 mg/dL Normal 1.5-2.2 [facility] Comment on above: Performed By: #### L 501.5200, L100.0100, L500.2500 #### [facility] [address] [place] [address]. [place], [address] Magnesium measurement (mass/ volume)Ordered By: Christine Kennedy on 10-06-2024 Magnesium (Unsp spec) [Mass/Vol] 1.9 mg/dL 1.5-2.2 [facility] Mean corpuscular hemoglobin (MCH) determinationOrdered By: Christine Kennedy on 10-06-2024 MCH (RBC) [Entitic mass] 31.7 pg 27.0-32.0 [facility] Mean corpuscular hemoglobin concentration (MCHC) determinationOrdered By: Christine Kennedy on 10-06-2024 MCHC (RBC) [Mass/Vol] 32.9 g/dL 32-36 [facility] Mean platelet volume determi nationOrdered By: Christine Kennedy on 10-06-2024 Platelet mean volume (Bld) [Entitic vol] 11.1 fL 6.2-12.0 [facility] Monocyte percentageOrdered B y: Christine Kennedy on 10-06-2024 Monocytes/100 WBC (Bld) 12.1 % High 0-10 [facility] Neutrophil percentageOrdered By: Christine Kennedy on 10-06-2024 Neutrophils/100 WBC (Bld) 73.7 % High 47-70 [facility] Nucleated red blood cell per centageOrdered By: Christine Kennedy on 10-06-2024 Nucleated RBC/100 WBC (Bld) [Ratio] 0 % 0-5 [facility] Platelet countOrdered By: Tyler Kennedy on 10-06-2024 Platelets (Bld) [#/Vol] 153 10*3/uL 150-450 [facility] Potassium measurement (mass/ volume)Ordered By: Christine Kennedy on 10-06-2024 Potassium (Unsp spec) [Mass/Vol] 3.3 mmol/L 3.3-5.1 [facility] RBC Auto (Bld) [#/Vol]Ordere d By: Christine Kennedy on 10-06-2024 RBC (Bld) [#/Vol] 4.13 10*6/uL Low 4.2-5.4 [facility] Serum creatinine measurement (mass/volume)Ordered By: Christine Kennedy on 10-06-2024 Creatinine [Mass/Vol] 1.00 mg/dL 0.70-1.20 [facility] Serum glucose measurement (m ass/volume)Ordered By: Christine Kennedy on 10-06-2024 Glucose [Mass/Vol] 104 mg/dL High 70-99 [facility] Serum or plasma calcium angie urement (mass/volume)Ordered By: Christine Kennedy on 10-06-2024 Calcium [Mass/Vol] 9.2 mg/dL 7.6-11.0 [facility] Serum or plasma urea nitroge n measurement (mass/volume)Ordered By: Christine Kennedy on 10-06-2024 Urea nitrogen [Mass/Vol] 16 mg/dL 4-19 [facility] Sodium levelOrdered By: Corbin Kennedy on 10-06-2024 Sodium [Moles/Vol] 144 mmol/L 133-145 [facility] White blood cell (WBC) count Ordered By: Christine Kennedy on 10-06-2024 WBC (Bld) [#/Vol] 9.0 10*3/uL 4.4-11.0 [facility] Venous Duplex US - Rolando Extre mon 08-20-2024 Venous Duplex US - Rolando Extrem [facility] [address] [place] [address] Venous Duplex US - Rolando Extrem 08/20/24 1410 MR#: [id number] Acct: [id number] Name: MARIA LUISA VILLALOBOS Rep #: [id number] : 1955 68 From: Doron Gamez MD Attending Dr: Dr. Walt La, Status: REG CLI Ordering Dr: Walt La DO Date: 08/20/24 Location: [facility] Sex: F C Admitted: Reason For Study Reason For Study: Bilateral leg edema RIGHT LEFT CFV is compressible, spontaneous, phasic, competent CFV is compressible, spontaneous, phasic, competent, and demonstrates normal augmentation. and demonstrates normal augmentation. FV is compressible, spontaneous, phasic, competent FV is compressible, spontaneous, phasic, competent and demonstrates normal augmentation. and demonstrates normal augmentation. POP V is compressible, spontaneous, phasic, competent POP V is compressible, spontaneous, phasic, competent and demonstrates normal augmentation. and demonstrates normal augmentation. T/P Trunk is compressible. T/P Trunk is compressible. PTV is compressible. PTV is compressible. RT PerV is compressible. LT PerV is compressible. SFJ is competent and measures 0.69 cm. SFJ is competent and measures 0.85 cm. GSV proximal thigh measures 0.62 x 0.61 cm. GSV proximal thigh measures 0.42 x 0.42 cm. GSV at knee measures 0.46 x 0.45 cm. GSV at knee measures 0.40 x 0.41 cm. GSV is competent throughout. GSV is competent throughout. SSV mid calf is competent and measures 0.21 x 0.25 ASV proximal calf is INCOMPETENT for greater than 0.5 cm. seconds and measures 0.25 x 0.26 cm. Procedure SSV mid calf is competent and measures 0.20 x 0.21 This is a venous duplex using B-mode, color flow and cm. spectral Doppler. Exam performed in department. Patient was scanned in reverse Trendelenburg position during reflux assessment. VL/Venous Duplex US - Rolando Extrem Interpretation Summary Deep veins of the bilateral lower extremities are patent and compressible segmentally. There is no evidence of bilateral lower extremity deep vein thrombosis. The bilateral great saphenous veins appear patent and compressible segmentally. Positive for reflux in the left accessory saphenous vein in calf. Ordering Physician: Walt La Referring Physician: Walt La Performed By: Krystal Perea, T 08/20/241939 Date Doron Gamez MD CC: Dr. Walt La, DO Date Dictated: 08/20/241409 Date Transcribed: 08/20/241939 Char Conveyor Tender: Signed Normal [facility] Venous duplex ultrasound rep ortOrdered By: Doron Gamez on 08-20-2024 US Vein [facility] Services [address] [place] [address] Venous Duplex US - Rolando Extrem 08/20/240 MR#: [id number] Acct: [id number] Name: MARIA LUISA VILLALOBOS Rep #:[id number] : 1955 68 From: Doron Carroll Attending Dr: Dr. Walt La, Status: REG CLI Ordering Dr: Walt La DO Date: 08/20/24 Location: [facility] Sex: F C Admitted: Reason For Study Reason For Study: Bilateral leg edema RIGHT LEFT CFV is compressible, spontaneous, phasic, competent CFV is compressible, spontaneous, phasic, competent, and demonstrates normal augmentation. and demonstrates normal augmentation. FV is compressible, spontaneous, phasic, competent FV is compressible, spontaneous, phasic, competent and demonstrates normal augmentation. and demonstrates normal augmentation. POP V is compressible, spontaneous, phasic, competent POP V is compressible, spontaneous, phasic, competent and demonstrates normal augmentation. and demonstrates normal augmentation. T/P Trunk is compressible. T/P Trunk is compressible. PTV is compressible. PTV is compressible. RT PerV is compressible. LT PerV is compressible. SFJ is competent and measures 0.69 cm. SFJ is competent and measures 0.85 cm. GSV proximal thigh measures 0.62 x 0.61 cm. GSV proximal thigh measures 0.42 x 0.42 cm. GSV at knee measures 0.46 x 0.45 cm. GSV at knee measures 0.40 x 0.41 cm. GSV is competent throughout. GSV is competent throughout. SSV mid calf is competent and measures 0.21 x 0.25 ASV proximal calf is INCOMPETENT for greater than 0.5 cm. seconds and measures 0.25 x 0.26 cm. Procedure SSV mid calf is competent and measures 0.20 x 0.21 This is a venous duplex using B-mode, color flow and cm. spectral Doppler. Exam performed in department. Patient was scanned in reverse Trendelenburg position during reflux assessment. VL/Venous Duplex US - Rolando Extrem Interpretation Summary Deep veins of the bilateral lower extremities are patent and compressible segmentally. There is no evidence of bilateral lower extremity deep vein thrombosis. The bilateral great saphenous veins appearpatent and compressible segmentally. Positive for reflux in the left accessory saphenous vein in calf. Ordering Physician: Walt La Referring Physician: Walt La Performed By: Krystal Perea, RVT 08/20/241939 Date _ Doron Gamez MD CC: Dr. Walt La, DO ~ Date Dictated: 08/20/240 Date Transcribed: 08/20/241939 Char Conveyor Tender: Signed [facility] Work Phone: Immunoglobulin Maury 5 IMMUNOGLOB G QN 1015 mg/dL Normal [phone] [facility] Comment on above: Result Comment: Perf ormed at: CB - [facility] [place] [address] Young Adult Librarian: Osvaldo Rich PhD, Phone: [phone] Performed By: #### L 4132.5342, L122.7453, S965.9906 ####[facility] [address] [place], [place], [id number] Absolute lymphocyte countOrd ered By: VARUN SHAH on 08-14-2024 Lymphocytes Auto (Unsp spec) [#/Vol] 0.99 10*3/uL 0.83-4.51 [facility] Absolute neutrophil countOrd ered By: VARUN SHAH on 08-14-2024 Neutrophils (Bld) [#/Vol] 3.8 10*3/uL 2.0-7.7 [facility] Anion gap in Serum or Plasma Ordered By: VARUN SHAH on 08-14-2024 Anion gap [Moles/Vol] 18 mmol/L High 5-15 [facility] Automated lymphocyte count a s percentage of total leukocytesOrdered By: VARUN SHAH on 08-14-2024 Lymphocytes/100 WBC Auto (Unsp spec) 17.6 % Low 19-41 [facility] BUN/creatinine ratioOrdered By: VARUN SHAH on 08-14-2024 Urea nitrogen/Creatinine [Mass ratio] 18.5 mg/mg 10-20 [facility] Basophil percentageOrdered B y: VARUN SHAH on 08-14-2024 Basophils/100 WBC (Bld) 1.1 % High 0-1 [facility] Bilirubin, totalOrdered By: VARUN SHAH on 08-14-2024 Bilirubin [Mass/Vol] 0.31 mg/dL 0.00-1.30 [facility] CBC W/Diff, Automatedon 04-0 Absolute Lymph 0.99 X10 3/uL Normal 0.83-4.51 [facility] Comment on above: Performed By: #### L 3200.1300, L100.0100, L500.4050 ####[facility] [address] [place], [address] Absolute Neut 3.8 X10 3/uL Normal 2.0-7.7 [facility] Comment on above: Performed By: #### L 3200.1300, L100.0100, L500.4050 ####[facility] [address] [place], [address] Basophils/100 WBC (Bld) 1.1 % High 0-1 [facility] Comment on above: Performed By: #### L 3200.1300, L100.0100, L500.4050 ####[facility] [address] [place], [address] Eosinophils/100 WBC (Bld) 2.7 % Normal 0-5 [facility] Comment on above: Performed By: #### L 3200.1300, L100.0100, L500.4050 ####[facility] [address] [place], [address] Erythrocyte distribution width (RBC) [Ratio] 13.7 % Normal 11.6-14.6 [facility] Comment on above: Performed By: #### L 3200.1300, L100.0100, L500.4050 ####[facility] [address] [place], [address] Hematocrit (Bld) [Volume fraction] 43.7 % Normal 37-47 [facility] Comment on above: Performed By: #### L 3200.1300, L100.0100, L500.4050 ####[facility] [address] [place], [address] Hemoglobin (Bld) [Mass/Vol] 14.6 g/dL Normal 12.0-15.0 [facility] Comment on above: Performed By: #### L 3200.1300, L100.0100, L500.4050 ####[facility] [address] [place], [address] IG% 0.200 Normal 0.0-0.9 [facility] Comment on above: Result Comment: IG% - Immature Granulocytes (promyelocytes, myelocytes and metamyelocytes) > 1% indicates that a LEFT SHIFT is Present. Performed By: #### L 3200.1300, L100.0100, L500.4050 ####[facility] [address] [place], [address] Lymphocytes/100 WBC (Bld) 17.6 % Low 19-41 [facility] Comment on above: Performed By: #### L 3200.1300, L100.0100, L500.4050 ####[facility] [address] [place], [address] MCH (RBC) [Entitic mass] 31.7 pg Normal 27.0-32.0 [facility] Comment on above: Performed By: #### L 3200.1300, L100.0100, L500.4050 ####[facility] [address] [place], [address] MCHC (RBC) [Mass/Vol] 33.4 g/dL Normal 32-36 [facility] Comment on above: Performed By: #### L 3200.1300, L100.0100, L500.4050 ####[facility] [address] [place], [address] MCV (RBC) [Entitic vol] 95.0 fL Normal 81-99 [facility] Comment on above: Performed By: #### L 3200.1300, L100.0100, L500.4050 ####[facility] [address] [place], [address] Monocytes/100 WBC (Bld) 10.5 % High 0-10 [facility] Comment on above: Performed By: #### L 3200.1300, L100.0100, L500.4050 ####[facility] [address] [place], [address] Neutrophils/100 WBC (Bld) 67.9 % Normal 47-70 [facility] Comment on above: Performed By: #### L 3200.1300, L100.0100, L500.4050 ####[facility] [address] [place], [address] Nucleated RBC (Bld) [#/Vol] 0 10*3/uL Normal 0-5 [facility] Comment on above: Performed By: #### L 3200.1300, L100.0100, L500.4050 ####[facility] [address] [place], [address] Platelet mean volume (Bld) [Entitic vol] 12.2 fL High 6.2-12.0 [facility] Comment on above: Performed By: #### L 3200.1300, L100.0100, L500.4050 ####[facility] [address] [place], [address] Platelets (Bld) [#/Vol] 135 10*3/uL Low 150-450 [facility] Comment on above: Performed By: #### L 3200.1300, L100.0100, L500.4050 ####[facility] [address] [place], [address] RBC (Bld) [#/Vol] 4.60 10*6/uL Normal 4.2-5.4 [facility] Comment on above: Performed By: #### L 3200.1300, L100.0100, L500.4050 ####[facility] [address] [place], [address] RDW SD 47.4 fl High 35.1-43.9 [facility] Comment on above: Performed By: #### L 3200.1300, L100.0100, L500.4050 ####[facility] [address] [place], [address] WBC (Bld) [#/Vol] 5.6 10*3/uL Normal 4.4-11.0 [facility] Comment on above: Performed By: #### L 3200.1300, L100.0100, L500.4050 ####[facility] [address] [place], [address] Carbon dioxide, total [Moles /volume] in Central venous bloodOrdered By: VARUN SHHA on 08-14-2024 CO2 [Moles/Vol] 19.5 mmol/L Low 21.0-32.0 [facility] Chloride assayOrdered By: HUE SHAH on 08-14-2024 Chloride [Moles/Vol] 106 mmol/L 98-108 [facility] Comprehensive Metabolic Prof ilon 08-14-2024 Albumin [Mass/Vol] 4.4 g/dL Normal 3.4-4.8 [facility] Comment on above: Performed By: #### L 3200.1300, L100.0100, L500.4050 ####[facility] [address] [place], [address] Albumin/Globulin [Mass ratio] 1.5 {ratio} Normal 0.9-2.4 [facility] Comment on above: Performed By: #### L 3200.1300, L100.0100, L500.4050 ####[facility] [address] [place], [address] ALK PHOS 149 U/L High 35-104 [facility] Comment on above: Performed By: #### L 3200.1300, L100.0100, L500.4050 ####[facility] [address] [place], [address] ALT [Catalytic activity/Vol] 16 U/L Normal <=34 [facility] Comment on above: Performed By: #### L 3200.1300, L100.0100, L500.4050 ####[facility] [address] [place], [address] AST [Catalytic activity/Vol] 22 U/L Normal <=31 [facility] Comment on above: Performed By: #### L 3200.1300, L100.0100, L500.4050 ####[facility] [address] [place], [address] Bilirubin [Mass/Vol] 0.31 mg/dL Normal 0.00-1.30 [facility] Comment on above: Performed By: #### L 3200.1300, L100.0100, L500.4050 ####[facility] [address] [place], [address] BUN/CRE 18.5 RATIO Normal 10-20 [facility] Comment on above: Performed By: #### L 3200.1300, L100.0100, L500.4050 ####[facility] [address] [place], [address] Calcium [Mass/Vol] 9.3 mg/dL Normal 7.6-11.0 [facility] Comment on above: Performed By: #### L 3200.1300, L100.0100, L500.4050 ####[facility] [address] [place], [address] Chloride [Moles/Vol] 106 mmol/L Normal 98-108 [facility] Comment on above: Performed By: #### L 3200.1300, L100.0100, L500.4050 ####[facility] [address] [place], [address] CO2 [Moles/Vol] 19.5 mmol/L Low 21.0-32.0 [facility] Comment on above: Performed By: #### L 3200.1300, L100.0100, L500.4050 ####[facility] [address] [place], [address] Creatinine [Mass/Vol] 1.17 mg/dL Normal 0.70-1.20 [facility] Comment on above: Performed By: #### L 3200.1300, L100.0100, L500.4050 ####[facility] [address] [place], [address] GAP 18 High 5-15 [facility] Comment on above: Performed By: #### L 3200.1300, L100.0100, L500.4050 ####[facility] [address] [place], [address] GFR/1.73 sq M.predicted among non-blacks MDRD (S/P/Bld) [Vol rate/Area] 51 mL/min/{1.73_m2} Low >60 [facility] Comment on above: Result Comment: mL/m in/1.73m2 CKD-EPI Creatinine Equation (2020) Performed By: #### L 3200.1300, L100.0100, L500.4050 ####[facility] [address] [place], [address] Globulin (S) [Mass/Vol] 3.0 g/dL Normal 2.2-4.2 [facility] Comment on above: Performed By: #### L 3200.1300, L100.0100, L500.4050 ####[facility] [address] [place], [address] Glucose [Mass/Vol] 98 mg/dL Normal 70-99 [facility] Comment on above: Performed By: #### L 3200.1300, L100.0100, L500.4050 ####[facility] [address] [place], [address] Potassium [Moles/Vol] 3.5 mmol/L Normal 3.3-5.1 [facility] Comment on above: Performed By: #### L 3200.1300, L100.0100, L500.4050 ####[facility] [address] [place], [address] Sodium [Moles/Vol] 143 mmol/L Normal 133-145 [facility] Comment on above: Performed By: #### L 3200.1300, L100.0100, L500.4050 ####[facility] [address] [place], [address] T PROT 7.5 g/dL Normal 5.9-8.4 [facility] Comment on above: Performed By: #### L 3200.1300, L100.0100, L500.4050 ####[facility] [address] [place], [address] Urea nitrogen [Mass/Vol] 22 mg/dL High 4-19 [facility] Comment on above: Performed By: #### L 3200.1300, L100.0100, L500.4050 ####[facility] [address] [place], [address] Eosinophil percentageOrdered By: VARUN SHAH on 08-14-2024 Eosinophils/100 WBC (Bld) 2.7 % 0-5 [facility] Erythrocyte distribution wid th (RBC) [Ratio]Ordered By: VARUN SHAH on 08-14-2024 Erythrocyte distribution width (RBC) [Entitic vol] 47.4 fL High 35.1-43.9 [facility] Erythrocyte distribution wid th ratioOrdered By: VARUN SHAH on 08-14-2024 Erythrocyte distribution width (RBC) [Ratio] 13.7 % 11.6-14.6 [facility] Erythrocyte distribution wid th standard deviationOrdered By: VARUN SHAH on 08-14-2024 Erythrocyte distribution width (RBC) [Ratio] 47.4 fl High 35.1-43.9 [facility] GFR/1.73 sq M.predicted luigi g non-blacks MDRD (S/P/Bld) [Vol rate/Area]Ordered By: VARUN SHAH on 08-14-2024 Estimated GFR (MDRD) Non-Af Amer 51 Low >60 [facility] Comment on above: mL/min/1.73m2 CKD-EP I Creatinine Equation (2020) Glomerular filtration rate ( GFR) estimation/1.73 sq m using serum, plasma, or whole bOrdered By: VARUN SHAH on 08-14-2024 GFR/1.73 sq M.predicted among non-blacks MDRD (S/P/Bld) [Vol rate/Area] 51 mL/min/{1.73_m2} Low >60 [facility] Comment on above: mL/min/1.73m2 CKD-EP I Creatinine Equation (2020) Hematocrit Auto (Bld) [Volum e fraction]Ordered By: VARUN SHAH on 08-14-2024 Hematocrit (Bld) [Volume fraction] 43.7 % 37-47 [facility] Hemoglobin measurementOrdere d By: VARUN SHAH on 08-14-2024 Hemoglobin (Bld) [Mass/Vol] 14.6 g/dL 12.0-15.0 [facility] IgG [Mass/Vol]Ordered By: HUE SHAH 08-14-2024 Immunoglobulin G 1015 mg/dL [phone] [facility] Comment on above: Performed at: [facility] [address] [place], [place] [id number] Director: Osvaldo Rich PhD, Phone: [phone] Immature granulocytes/100 WB C Auto (Bld)Ordered By: VARUN SHAH on 08-14-2024 Immature granulocytes/100 WBC (Bld) 0.200 % 0.0-0.9 [facility] Comment on above: IG% - Immature Granu locytes (promyelocytes, myelocytes and metamyelocytes) > 1% indicates that a LEFT SHIFT is Present. Laboratory - Chemistry and C hemistry - challengeOrdered By: VARUN SHAH on 08-14-2024 AST [Catalytic activity/Vol] 22 U/L <32 [facility] Lymphocytes Auto (Unsp spec) [#/Vol]Ordered By: VARUN SHAH on 08-14-2024 Lymphocytes (Bld) [#/Vol] 0.99 10*3/uL 0.83-4.51 [facility] Lymphocytes/100 WBC Auto (Un sp spec)Ordered By: VARUN SHAH on 08-14-2024 Lymphocytes/100 WBC (Bld) 17.6 % Low 19-41 [facility] MCV (mean corpuscular volume ) determinationOrdered By: VARUN SHAH on 08-14-2024 MCV (RBC) [Entitic vol] 95.0 fL 81-99 [facility] Mean corpuscular hemoglobin (MCH) determinationOrdered By: VARUN SHAH on 08-14-2024 MCH (RBC) [Entitic mass] 31.7 pg 27.0-32.0 [facility] Mean corpuscular hemoglobin concentration (MCHC) determinationOrdered By: VARUN SHAH on 08-14-2024 MCHC (RBC) [Mass/Vol] 33.4 g/dL 32-36 [facility] Mean platelet volume determi nationOrdered By: VARUN SHAH on 08-14-2024 Platelet mean volume (Bld) [Entitic vol] 12.2 fL High 6.2-12.0 [facility] Monocyte percentageOrdered B y: VARUN SHAH on 08-14-2024 Monocytes/100 WBC (Bld) 10.5 % High 0-10 [facility] Neutrophil percentageOrdered By: VARUN SHAH on 08-14-2024 Neutrophils/100 WBC (Bld) 67.9 % 47-70 [facility] Nucleated red blood cell per centageOrdered By: VARUN SHAH on 08-14-2024 Nucleated RBC/100 WBC (Bld) [Ratio] 0 % 0-5 [facility] Platelet countOrdered By: HUE SHAH on 08-14-2024 Platelets (Bld) [#/Vol] 135 10*3/uL Low 150-450 [facility] Potassium (Unsp spec) [Mass/ Vol]Ordered By: VARUN SHAH on 08-14-2024 Potassium [Moles/Vol] 3.5 mmol/L 3.3-5.1 [facility] Potassium measurement (mass/ volume)Ordered By: VARUN SHAH on 08-14-2024 Potassium (Unsp spec) [Mass/Vol] 3.5 mmol/L 3.3-5.1 [facility] RBC Auto (Bld) [#/Vol]Ordere d By: VARUN SHAH on 08-14-2024 RBC (Bld) [#/Vol] 4.60 10*6/uL 4.2-5.4 [facility] Serum creatinine measurement (mass/volume)Ordered By: VARUN SHAH on 08-14-2024 Creatinine [Mass/Vol] 1.17 mg/dL 0.70-1.20 [facility] Serum globulin measurementOr dered By: VARUN SHAH on 08-14-2024 Globulin (S) [Mass/Vol] 3.0 g/dL 2.2-4.2 [facility] Serum glucose measurement (m ass/volume)Ordered By: VARUN SHAH on 08-14-2024 Glucose [Mass/Vol] 98 mg/dL 70-99 [facility] Serum or plasma IgG measurem ent (mass/volume)Ordered By: VARUN SHAH on 08-14-2024 IgG [Mass/Vol] 1015 mg/dL [phone] [facility] Comment on above: Performed at: [address] [id number] Director: Osvaldo iRch PhD, Phone: [phone] Serum or plasma alanine adames otransferase (ALT) measurementOrdered By: VARUN SHAH on 08-14-2024 ALT [Catalytic activity/Vol] 16 U/L <35 [facility] Serum or plasma albumin angie urement (mass/volume)Ordered By: VARUN SHAH on 08-14-2024 Albumin [Mass/Vol] 4.4 g/dL 3.4-4.8 [facility] Serum or plasma albumin/glob ulin mass ratioOrdered By: VARUN SHAH on 08-14-2024 Albumin/Globulin [Mass ratio] 1.5 {ratio} 0.9-2.4 [facility] Serum or plasma alkaline pedro sphatase measurementOrdered By: VARUN SHAH on 08-14-2024 ALP [Catalytic activity/Vol] 149 U/L High 35-104 [facility] Serum or plasma calcium angie urement (mass/volume)Ordered By: VARUN SHAH on 08-14-2024 Calcium [Mass/Vol] 9.3 mg/dL 7.6-11.0 [facility] Serum or plasma urea nitroge n measurement (mass/volume)Ordered By: VARUN SHAH on 08-14-2024 Urea nitrogen [Mass/Vol] 22 mg/dL High 4-19 [facility] Sodium levelOrdered By: SARAH SHAH on 08-14-2024 Sodium [Moles/Vol] 143 mmol/L 133-145 [facility] Total proteinOrdered By: KWADWO SHAH on 08-14-2024 Protein [Mass/Vol] 7.5 g/dL 5.9-8.4 [facility] White blood cell (WBC) count Ordered By: VARUN SHAH on 08-14-2024 WBC (Bld) [#/Vol] 5.6 10*3/uL 4.4-11.0 [facility] Dexa Bone Density Studyon Dexa Bone Density Study [facility] Imaging Services [address] [place] [address] Dexa Bone Density Study MR#: [id number] Acct: [id number] Name: MARIA LUISA VILLALOBOS Rep #: [id number] : 1955 From: Andrzej BRADSHAW: Dr. Walt La DO Status: [facility] Study: Dexa Bone Density Study Date of Exam: 05/10/24 Exam# [id number] Ordering Dr: Walt La DO [id number] STUDY: DUAL ENERGY X-RAY ABSORPTIOMETRY / DXA REASON FOR EXAM: Female, 68 years old. V76.12ScreeningBONE DENSITY REASON FOR EXAM TECHNIQUE: Bone Mineral Density (BMD) measurements of lumbar spine and bilateral hips were obtained. COMPARISON: November 06, 2019 FINDINGS: Lumbar Spine (L1-L4): g/cm2 (0.93) / T-score (-0.6) / Z-score (1.3) Findings are suggestive of normal BMD with a fracture risk. Left Femur Total: g/cm2 (0.689) / T-score (-2.1) / Z-score (-0.7) Left Femoral Neck: g/cm2 (0.583) / T-score (-2.4) / Z-score (-0.7) Right Femur Total: g/cm2 (0.653) / T-score (-2.4) / Z-score (-1.0) Right Femoral Neck: g/cm2 (0.585) / T-score (-2.4) / Z-score (minus 0.7) The T-Scores on the most recent prior examination were: Lumbar Spine (L1-L4): There has been decrease of bone density since the previous examination. BD/Dexa Bone Density Study IMPRESSION: The patient is considered normal spine and osteopenic hips bilaterally as outlined below according to World Marshall Organization (WHO) criteria with a increased hip fracture risk. There has been decreased of bone density since the previous examination. [...] 1. NIH Osteoporosis and Related Bone Diseases www osteo.org 2. International Society for Clinical Densitometry www iscd.org 3. National Osteoporosis Foundation www nof.org Electronically Signed: Andrzej Rushing MD at 21:45 EST Reading Location ID and State: [facility] / [place] Tel , Service support , CC: Dr. Walt La DO Char Conveyor Tender: Signed Normal [facility] SCRN MAMM (CAD)W/CASIMIRO BILATo n 05-10-2024 SCRN MAMM (CAD)W/CASIMIRO BILAT [facility] Imaging Services [address] [place] [id number] SCRN MAMM (CAD)W/CASIMIRO BILAT MR#: [id number] Acct: [id number] Name: MARIA LUISA VILLALOBOS Rep #: [id number] : 1955 F 68 From: James Elaine MD PCP: Dr. Walt La DO Status: REG CL Study: SCRN MAMM (CAD)W/CASIMIRO BILAT Date of Exam: 04/16 11/06 Exam# [id number] Ordering Dr: Walt La DO [id number] MAMMOGRAPHY - BILATERAL SCREENING 3-D TOMOSYNTHESIS REASON FOR EXAM: Female, 68 years old. SCREENING PERTINENT HISTORY: No significant family history. TECHNIQUE: 2-D mammograms and 3-D Tomosynthesis of the breast (s) were performed. CAD was performed. COMPARISON: 11/06/2019 FINDINGS: The breast composition is heterogeneously dense that can obscure small breast masses. Scattered benign calcifications are seen. No dense spiculated masses or suspicious microcalcifications are identified. No architectural distortion is identified. There is no skin thickening or retraction. There has been no significant change since the prior study. BI/SCRN MAMM (CAD)W/CASIMIRO BILAT IMPRESSION: No mammographic signs of malignancy. Routine yearly mammograms recommended. ASSESSMENT CATEGORY: BIRADS Category 1: Negative. A letter regarding these results will be sent to the patient by the facility within 30 days. FOLLOW UP RECOMMENDATION: Yearly follow up mammogram recommended. (A) Approximately 10% of breast cancers are not detected by mammography. A normal mammogram should not delay biopsy of a clinically suspicious abnormality. Electronically Signed: James Elaine MD at 19:32 EST , CC: Dr. Walt La DO Char Conveyor Tender: Signed Normal [facility] Brain W/WO Contraston 2023 [facility] [address] [place] [address] Brain W/WO Contrast MR#: [id number] Acct: [id number] Name: MARIA LUISA VILLALOBOS Rep #: [id number] : 1955 F 68 From: Benjamin Flowers MD PCP: Dr. Watl La DO Status: REG CLI Study: Brain W/WO Contrast Date of Exam: 05/02/24 Exam# [id number] Ordering Dr: VARUN SHAH SQL SERVER DBA-C [id number] EXAM: MR HEAD WITHOUT AND WITH INTRAVENOUS CONTRAST CLINICAL INDICATION: MS TECHNIQUE: Multiplanar and multisequence MR images of the brain were obtained without and with intravenous contrast. CONTRAST: IV 17ml clariscan COMPARISON: MR Head dated 10/06/2020 FINDINGS: BRAIN AND EXTRA-AXIAL SPACES: Multiple foci of abnormal T2 signal intensity again seen along the periventricular and peripheral white matter and within the junction of the right putamen and external. There has been no significant interval change from prior exam. No hemorrhage or mass effect. No abnormal contrast enhancement. Posterior fossa is normal. Basilar cisterns are patent. SELLA: Normal. Normal sella turcica, pituitary gland, infundibular stalk, optic chiasm and hypothalamus. AUDITORY SYSTEM: Normal. The internal auditory canals are patent. BONES/JOINTS: Intact calvarium. SINUSES: Mucosal thickening within the maxillary and ethmoid sinuses. Residual 2.2 cm mucous retention cyst within the right maxillary sinus. MASTOID AIR CELLS: Clear. ORBITS: Unremarkable as visualized. Both globes, extraocular muscles, optic nerves and retrobulbar fat appear unremarkable. VASCULATURE: Unremarkable as visualized. Normal flow voids in the major intracranial circulation. MRI/Brain W/WO Contrast IMPRESSION: 1. No acute intracranial abnormality. 2. Stable white matter regions compatible with the patient''s history of multiple sclerosis. Electronically Signed: Benjamin Flowers MD at 13:01 EST Reading Location ID and State: [address] [place] [address] Tel , Service support , CC: Dr. Walt La DO; VARUN SHAH Char Conveyor Tender: Signed Normal [facility] CREATININE FINGERSTICKon CREATININE WB < 1.0 Normal 0.55-1.02 [facility] Comment on above: Performed By: #### L 9100.0200 #### [facility] [address] [place], [place], [id number] EGFR WB > 60.0000 Normal >60 [facility] Comment on above: Performed By: #### L 9100.0200 #### [facility] [address] [place], [place], [id number] Creatinine measurement at dsideOrdered By: VARUN SHAH on 05-02-2024 Bedside Creatinine < 1.0 mg/dL 0.55-1.02 [facility] EGFROrdered By: VARUN SHAH on 05-02-2024 Bedside Estimated GFR (eGFR) > 60.0000 mL/min >60 [facility] Spine Thoracic W/WO Contrast on 05-02-2024 Spine Thoracic W/WO Contrast [facility] Imaging Services [address] [place], [place] [address] Spine Thoracic W/WO Contrast MR#: [id number] Acct: [id number] Name: MARIA LUISA VILLALOBOS Rep #: [id number] : 1955 F 68 From: Benjamin Flowers MD PCP: Dr. Walt La, DO Status: REG CLI Study: Spine Thoracic W/WO Contrast Date of Exam: Exam# [id number] Ordering Dr: VARUN SHAH SQL SERVER DBA-C [id number] EXAM: MR THORACIC SPINE WITHOUT AND WITH INTRAVENOUS CONTRAST CLINICAL INDICATION: MS TECHNIQUE: Multiplanar and multisequence MR images of the thoracic spine without and with intravenous contrast. CONTRAST: IV 17ml Clariscan COMPARISON: MR Thoracic Spine dated 05/13/2014 FINDINGS: VERTEBRAE: No fracture. No bone marrow edema. Multilevel facet arthropathy. Normal alignment. There is preservation of the normal thoracic kyphosis. No scoliosis. DISCS/SPINAL CANAL/NEURAL FORAMINA: Normal. Normal disc height and morphology. Normal spinal canal and neuroforamina. SPINAL CORD: Increased T2 signal intensity within the thoracic cord at T3 and T4 levels associated with cord atrophy again seen. Stable focal areas of increased T2 signal intensity within the cord at T2 and within the conus medullaris at the T11 level. No abnormal contrast enhancement. SOFT TISSUES: Normal. MRI/Spine Thoracic W/WO Contrast IMPRESSION: No significant interval change. Stable cord lesions at the upper thoracic level and at the conus medullaris. Electronically Signed: Benjamin Flowers MD at 14:00 EST , CC: Dr. Walt La, DO; VARUN SHAH [employer]or Tender: Signed Normal [facility] Absolute lymphocyte countOrd ered By: Gurwinder Chirinos on 09-19-2023 Lymphocytes Auto (Unsp spec) [#/Vol] 0.96 10*3/uL 0.83-4.51 [facility] Automated lymphocyte count a s percentage of total leukocytesOrdered By: Gurwinder Chirinos on 09-19-2023 Lymphocytes/100 WBC Auto (Unsp spec) 18.1 % 19-41 [facility] Basophil percentageOrdered B y: Gurwinder Chirinos on 09-19-2023 Basophils/100 WBC (Bld) 1.1 % 0-1 [facility] Bilirubin [Mass/Vol] 0.50 mg/dL 0.20-1.00 [facility] Comment on above: For patients on eltr ombopag therapy, use of Dimension [place] TBIL is not recommended. Chloride [Moles/Vol] 108 mmol/L 98-107 [facility] Eosinophils/100 WBC (Bld) 2.6 % 0-5 [facility] Glucose [Mass/Vol] 102 mg/dL 74-106 [facility] Comment on above: Fasting Glucose resu lt from 100 to 125 mg/dL suggests IMPAIRED HOMEOSTASIS per A.D.A. criteria. Hemoglobin (Bld) [Mass/Vol] 13.3 g/dL 12.0-15.0 [facility] Monocytes/100 WBC (Bld) 10.0 % 0-10 [facility] Neutrophils (Bld) [#/Vol] 3.6 10*3/uL 2.0-7.7 [facility] Neutrophils/100 WBC (Bld) 68.0 % 47-70 [facility] Potassium [Moles/Vol] 3.7 mmol/L 3.5-5.1 [facility] Protein [Mass/Vol] 7.2 g/dL 6.4-8.2 [facility] Sodium [Moles/Vol] 142 mmol/L 136-145 [facility] WBC (Bld) [#/Vol] 5.3 10*3/uL 4.4-11.0 [facility] Determination of erythrocyte mean corpuscular volume (MCV)Ordered By: Gurwinder Chirinos on 09-19-2023 MCV (RBC) [Entitic vol] 96.7 fL 81-99 [facility] Erythrocyte distribution wid th ratioOrdered By: Gurwinderadelaida Chirinos on 09-19-2023 Erythrocyte distribution width (RBC) [Ratio] 13.4 % 11.6-14.6 [facility] Erythrocyte distribution wid th standard deviationOrdered By: Gurwinder Chirinos on 09-19-2023 Erythrocyte distribution width (RBC) [Entitic vol] 47.8 fL 35.1-43.9 [facility] Hematocrit Auto (Bld) [Volum e fraction]Ordered By: Gurwinderadelaida Chirinos on 09-19-2023 Hematocrit (Bld) [Volume fraction] 40.6 % 37-47 [facility] Immature granulocytes/100 WB C Auto (Bld)Ordered By: Gurwinderadelaida Chirinos on 09-19-2023 Immature granulocytes/100 WBC (Bld) 0.200 % 0.0-0.9 [facility] Comment on above: IG% - Immature Granu locytes (promyelocytes, myelocytes and metamyelocytes) > 1% indicates that a LEFT SHIFT is Present. Laboratory - Chemistry and C hemistry - challengeOrdered By: Gurwinderadelaida Chirinos on 09-19-2023 Albumin/Globulin [Mass ratio] 1.1 {ratio} 0.9-2.4 [facility] ALP [Catalytic activity/Vol] 137 U/L 45-117 [facility] ALT [Catalytic activity/Vol] 23 U/L 13-56 [facility] CO2 [Moles/Vol] 28.0 mmol/L 21.0-32.0 [facility] Globulin (S) [Mass/Vol] 3.4 g/dL 2.2-4.2 [facility] Urea nitrogen/Creatinine [Mass ratio] 12.6 mg/mg 10-20 [facility] Laboratory - Hematology and Cell countsOrdered By: Gurwinder Chirinos on 09-19-2023 MCH (RBC) [Entitic mass] 31.7 pg 27.0-32.0 [facility] MCHC (RBC) [Mass/Vol] 32.8 g/dL 32-36 [facility] Nucleated RBC/100 WBC (Bld) [Ratio] 0 % 0-5 [facility] Platelet mean volume (Bld) [Entitic vol] 11.7 fL 6.2-12.0 [facility] Platelets (Bld) [#/Vol] 175 10*3/uL 150-450 [facility] No Panel InformationOrdered By: Gurwinder Chirinos on 09-19-2023 Estimated GFR (MDRD) Amer 58 mL/min >60 [facility] Comment on above: GFR Calc Estimated GFR (MDRD) Non-Af Amer 48 mL/min >60 [facility] Comment on above: Non- GFR Calc RBC Auto (Bld) [#/Vol]Ordere d By: Gurwinder Chirinos on 09-19-2023 RBC (Bld) [#/Vol] 4.20 10*6/uL 4.2-5.4 [facility] Serum or plasma calcium angie urement (mass/volume)Ordered By: Gurwinder Chirinos on 09-19-2023 Calcium [Mass/Vol] 9.1 mg/dL 8.5-10.1 [facility] Serum or plasma creatinine m easurement (mass/volume)Ordered By: Gurwinder Chirinos on 09-19-2023 Creatinine [Mass/Vol] 1.19 mg/dL 0.55-1.02 [facility] Comment on above: The validity of the calculated GFR & GFRAA in patients over 70 years has not been determined. Clinical correlation is essential. Serum or plasma urea nitroge n measurement (mass/volume)Ordered By: Gurwinder Chirinos on 09-19-2023 Urea nitrogen [Mass/Vol] 15 mg/dL 7-18 [facility] Thin prep Papanicolaou smear with manual screeningOrdered By: Gurwinder Chirinos on 09-19-2023 Thin prep Papanicolaou smear with manual screening 3.8 g/dL 3.2-5.0 [facility] Thin prep Papanicolaou smear with manual screening 17 U/L 15-37 [facility] Thin prep Papanicolaou smear with manual screening 6 5-15 [facility] Absolute lymphocyte countOrd ered By: Walt La on 08-04-2023 Lymphocytes Auto (Unsp spec) [#/Vol] 0.69 10*3/uL 0.83-4.51 [facility] Automated lymphocyte count a s percentage of total leukocytesOrdered By: Walt La on 08-04-2023 Lymphocytes/100 WBC Auto (Unsp spec) 15.3 % 19-41 [facility] Basophil percentageOrdered B y: Walt La on 08-04-2023 Basophils/100 WBC (Bld) 1.5 % 0-1 [facility] Bilirubin [Mass/Vol] 0.50 mg/dL 0.20-1.00 [facility] Comment on above: For patients on eltr ombopag therapy, use of Dimension [place] TBIL is not recommended. Chloride [Moles/Vol] 109 mmol/L 98-107 [facility] Cholesterol [Mass/Vol] 213 mg/dL <200 [facility] Comment on above: <200 mg/dL Desirable 200-240 mg/dL Borderline >240 mg/dL High Risk Eosinophils/100 WBC (Bld) 2.4 % 0-5 [facility] Glucose [Mass/Vol] 80 mg/dL 74-106 [facility] Hemoglobin (Bld) [Mass/Vol] 13.8 g/dL 12.0-15.0 [facility] Monocytes/100 WBC (Bld) 11.5 % 0-10 [facility] Neutrophils (Bld) [#/Vol] 3.1 10*3/uL 2.0-7.7 [facility] Neutrophils/100 WBC (Bld) 69.1 % 47-70 [facility] Potassium [Moles/Vol] 3.7 mmol/L 3.5-5.1 [facility] Comment on above: Slight Hemolysis, Re sult may be falsely increased. Protein [Mass/Vol] 7.3 g/dL 6.4-8.2 [facility] Sodium [Moles/Vol] 143 mmol/L 136-145 [facility] Triglyceride [Mass/Vol] 81 mg/dL <199 [facility] Comment on above: The drugs N-Acetylcy steine and Metamizole may falsely depress this assay.Serum Triglycerides Reference Interval Normal <150 mg/dL Borderline high 150 - 199 mg/dL High 200 - 499 mg/dL Very High > or = 500 mg/dL WBC (Bld) [#/Vol] 4.5 10*3/uL 4.4-11.0 [facility] Determination of erythrocyte mean corpuscular volume (MCV)Ordered By: Walt La on 08-04-2023 MCV (RBC) [Entitic vol] 97.3 fL 81-99 [facility] Erythrocyte distribution wid th ratioOrdered By: Walt La on 08-04-2023 Erythrocyte distribution width (RBC) [Ratio] 13.2 % 11.6-14.6 [facility] Erythrocyte distribution wid th standard deviationOrdered By: Walt La on 08-04-2023 Erythrocyte distribution width (RBC) [Entitic vol] 47.2 fL 35.1-43.9 [facility] Hematocrit Auto (Bld) [Volum e fraction]Ordered By: Walt La on 08-04-2023 Hematocrit (Bld) [Volume fraction] 42.8 % 37-47 [facility] Immature granulocytes/100 WB C Auto (Bld)Ordered By: Walt La on 08-04-2023 Immature granulocytes/100 WBC (Bld) 0.200 % 0.0-0.9 [facility] Comment on above: IG% - Immature Granu locytes (promyelocytes, myelocytes and metamyelocytes) > 1% indicates that a LEFT SHIFT is Present. Laboratory - Chemistry and C hemistry - challengeOrdered By: Walt La on 08-04-2023 Albumin/Globulin [Mass ratio] 1.0 {ratio} 0.9-2.4 [facility] ALP [Catalytic activity/Vol] 150 U/L 45-117 [facility] ALT [Catalytic activity/Vol] 25 U/L 13-56 [facility] Cholesterol in HDL [Mass/Vol] 83 mg/dL >40 [facility] Comment on above: The drugs N-Acetylcy steine and Metamizole may falsely depress this assay. Reference Range HDL <40 mg/dL Low HDL Cholesterol HDL >or= 60 mg/dL High HDL Cholesterol Cholesterol in LDL [Mass/Vol] 114 mg/dL 0-130 [facility] CO2 [Moles/Vol] 25.0 mmol/L 21.0-32.0 [facility] Globulin (S) [Mass/Vol] 3.7 g/dL 2.2-4.2 [facility] Urea nitrogen/Creatinine [Mass ratio] 15.1 mg/mg 10-20 [facility] Laboratory - Hematology and Cell countsOrdered By: Walt La on 08-04-2023 MCH (RBC) [Entitic mass] 31.4 pg 27.0-32.0 [facility] MCHC (RBC) [Mass/Vol] 32.2 g/dL 32-36 [facility] Nucleated RBC/100 WBC (Bld) [Ratio] 0 % 0-5 [facility] Platelet mean volume (Bld) [Entitic vol] 11.5 fL 6.2-12.0 [facility] Platelets (Bld) [#/Vol] 158 10*3/uL 150-450 [facility] No Panel InformationOrdered By: Walt La on 08-04-2023 Estimated GFR (MDRD) Amer 49 mL/min >60 [facility] Comment on above: GFR Calc Estimated GFR (MDRD) Non-Af Amer 40 mL/min >60 [facility] Comment on above: Non- GFR Calc Immunoglobulin E 7 IU/mL 6-495 [facility] Immunoglobulin M 11 mg/dL 26-217 [facility] Comment on above: Result confirmed on concentration.Performed at: - [facility] [employer] [id number] Director: Manpreet Luis MD, Phone: [phone] at: - [facility] [address] [id number] Director: Osvaldo Rich PhD, Phone: [phone] Vitamin D 25-Hydroxy 47.7 ng/mL [facility] Comment on above: Vitamin D 25(OH) Sta tus Range Deficiency <20 ng/mL (50nmol/L) Insufficiency 20 - 30 ng/mL (50 - 75 nmol/L) Sufficiency 30 - 100 ng/mL (75 - 250 nmol/L) Toxicity >100 ng/mL (>250 nmol/L) VLDL Cholesterol 16 mg/dL 5-40 [facility] RBC Auto (Bld) [#/Vol]Ordere d By: Walt La on 08-04-2023 RBC (Bld) [#/Vol] 4.40 10*6/uL 4.2-5.4 [facility] Serum or plasma IgA measurem ent (mass/volume)Ordered By: Walt La on 08-04-2023 IgA [Mass/Vol] 141 mg/dL 87-352 [facility] Serum or plasma IgG measurem ent (mass/volume)Ordered By: Walt La on 08-04-2023 IgG [Mass/Vol] 853 mg/dL 586-1602 [facility] Serum or plasma calcium angie urement (mass/volume)Ordered By: Walt La on 08-04-2023 Calcium [Mass/Vol] 8.8 mg/dL 8.5-10.1 [facility] Serum or plasma creatinine m easurement (mass/volume)Ordered By: Walt La on 08-04-2023 Creatinine [Mass/Vol] 1.39 mg/dL 0.55-1.02 [facility] Comment on above: The validity of the calculated GFR & GFRAA in patients over 70 years has not been determined. Clinical correlation is essential. Serum or plasma thyroid stim ulating hormone (TSH) measurement (units/volume)Ordered By: Walt La on 08-04-2023 TSH Qn 1.46 uIU/mL 0.358-3.74 [facility] Serum or plasma urea nitroge n measurement (mass/volume)Ordered By: Walt La on 08-04-2023 Urea nitrogen [Mass/Vol] 21 mg/dL 7-18 [facility] Thin prep Papanicolaou smear with manual screeningOrdered By: Walt La on 08-04-2023 Thin prep Papanicolaou smear with manual screening 3.6 g/dL 3.2-5.0 [facility] Thin prep Papanicolaou smear with manual screening 18 U/L 15-37 [facility] Comment on above: Slight Hemolysis, Re sult may be falsely increased. Thin prep Papanicolaou smear with manual screening 9 5-15 [facility] Anaerobic cultureOrdered By: Juan Manuel Umaña on 12-16-2022 Bacteria identified Anaer cx Nom (Unsp spec) No growth in 5 days. [facility] Gram stain for investigation of transfusion reactionOrdered By: Juan Manuel Umaña on 12-16-2022 Microscopic observation Gram stain Nom (Unsp spec) [facility] Routine wound cultureOrdered By: Juan Manuel Umaña on 12-16-2022 Bacteria identified Cx Nom (Wound) No growth aerobically. [facility] Absolute lymphocyte countOrd ered By: Sosa Cari on 11-20-2022 Lymphocytes Auto (Unsp spec) [#/Vol] 0.71 10*3/uL 0.83-4.51 [facility] Basophil percentageOrdered B y: Sosa Alcala on 11-20-2022 Basophils/100 WBC (Bld) 0.9 % 0-1 [facility] Chloride [Moles/Vol] 109 mmol/L 98-107 [facility] Eosinophils/100 WBC (Bld) 3.1 % 0-5 [facility] Glucose [Mass/Vol] 87 mg/dL 74-106 [facility] Neutrophils (Bld) [#/Vol] 3.1 10*3/uL 2.0-7.7 [facility] Neutrophils/100 WBC (Bld) 67.3 % 47-70 [facility] Potassium [Moles/Vol] 4.0 mmol/L 3.5-5.1 [facility] Sodium [Moles/Vol] 141 mmol/L 136-145 [facility] WBC (Bld) [#/Vol] 4.5 10*3/uL 4.4-11.0 [facility] Blood erythrocytes count (nu mber/volume)Ordered By: Sosa Alcala on 11-20-2022 RBC (Bld) [#/Vol] 3.54 10*6/uL 4.2-5.4 [facility] Blood hemoglobin measurement (mass/volume)Ordered By: Sosa Alcala on 11-20-2022 Hemoglobin (Bld) [Mass/Vol] 11.8 g/dL 12.0-15.0 [facility] Blood lymphocytes/100 leukoc ytesOrdered By: Sosa Alcala on 11-20-2022 Lymphocytes/100 WBC (Bld) 15.7 % 19-41 [facility] Blood monocytes/100 leukocyt esOrdered By: Sosa Alcala on 11-20-2022 Monocytes/100 WBC (Bld) 12.8 % 0-10 [facility] Blood platelet mean volumeOr dered By: Sosa Alcala on 11-20-2022 Platelet mean volume (Bld) [Entitic vol] 11.7 fL 6.2-12.0 [facility] Determination of erythrocyte mean corpuscular volume (MCV)Ordered By: Sosa Alcala on 11-20-2022 MCV (RBC) [Entitic vol] 100.6 fL 81-99 [facility] Hematocrit Auto (Bld) [Volum e fraction]Ordered By: Sosa Alcala on 11-20-2022 Hematocrit (Bld) [Volume fraction] 35.6 % 37-47 [facility] Laboratory - Chemistry and C hemistry - challengeOrdered By: Sosa Alcala on 11-20-2022 CO2 [Moles/Vol] 26.0 mmol/L 21.0-32.0 [facility] Urea nitrogen/Creatinine [Mass ratio] 28.5 mg/mg 10-20 [facility] Laboratory - Hematology and Cell countsOrdered By: Sosa Alcala on 11-20-2022 Erythrocyte distribution width (RBC) [Entitic vol] 50.4 fL 35.1-43.9 [facility] Erythrocyte distribution width (RBC) [Ratio] 13.7 % 11.6-14.6 [facility] Immature granulocytes/100 WBC (Bld) 0.200 % 0.0-0.9 [facility] Comment on above: IG% - Immature Granu locytes (promyelocytes, myelocytes and metamyelocytes) > 1% indicates that a LEFT SHIFT is Present. MCH (RBC) [Entitic mass] 33.3 pg 27.0-32.0 [facility] Nucleated RBC/100 WBC (Bld) [Ratio] 0 % 0-5 [facility] MCHC Auto (RBC) [Mass/Vol]Or dered By: Sosa Alcala on 11-20-2022 MCHC (RBC) [Mass/Vol] 33.1 g/dL 32-36 [facility] No Panel InformationOrdered By: Sosa Alcala on 11-20-2022 Estimated Creatinine Clearance Calc 55.04 ml/min [facility] Estimated GFR (MDRD) Amer 83 mL/min >60 [facility] Comment on above: GFR Calc Estimated GFR (MDRD) Non-Af Amer 69 mL/min >60 [facility] Comment on above: Non- GFR Calc Platelets bldOrdered By: Nila bean Cari on 11-20-2022 Platelets (Bld) [#/Vol] 143 10*3/uL 150-450 [facility] Serum or plasma calcium angie urement (mass/volume)Ordered By: Sosa Alcala on 11-20-2022 Calcium [Mass/Vol] 9.0 mg/dL 8.5-10.1 [facility] Serum or plasma creatinine m easurement (mass/volume)Ordered By: Sosa Alcala on 11-20-2022 Creatinine [Mass/Vol] 0.88 mg/dL 0.55-1.02 [facility] Comment on above: The validity of the calculated GFR & GFRAA in patients over 70 years has not been determined. Clinical correlation is essential. Serum or plasma urea nitroge n measurement (mass/volume)Ordered By: Sosa Alcala on 11-20-2022 Urea nitrogen [Mass/Vol] 25 mg/dL 7-18 [facility] Thin prep Papanicolaou smear with manual screeningOrdered By: Sosa Alcala on 11-20-2022 Thin prep Papanicolaou smear with manual screening 6 5-15 [facility] Blood manual differential co mment interpretation (narrative result)Ordered By: Sosa Alcala on 11-13-2022 Manual differential comment Robbin (Bld) [Interp] SCANNED [facility] Iron measurement (mass/mass) Ordered By: Sosa Alcala on 11-13-2022 Iron (Unsp spec) [Mass/Mass] 74 ug/dL 50-170 [facility] No Panel InformationOrdered By: Sosa Alcala on 11-13-2022 Reactive Lymphocytes 1+ [facility] Total Iron Binding Capacity 345 ug/dL 250-450 [facility] Serum or plasma ferritin matt surement (mass/volume)Ordered By: Sosa Alcala on 11-13-2022 Ferritin [Mass/Vol] 48 ng/mL 8-252 [facility] Serum or plasma iron saturat ion measurement (mass fraction)Ordered By: Sosa Alcala on 11-13-2022 Iron saturation [Mass fraction] 21.4 % 15.0-55.0 [facility] Basophil percentageOrdered B y: Sosa Alcala on 11-12-2022 Chloride [Moles/Vol] 111 mmol/L 98-107 [facility] Glucose [Mass/Vol] 83 mg/dL 74-106 [facility] Potassium [Moles/Vol] 3.9 mmol/L 3.5-5.1 [facility] Sodium [Moles/Vol] 142 mmol/L 136-145 [facility] Blood hemoglobin measurement (mass/volume)Ordered By: Sosa Alcala on 11-12-2022 Hemoglobin (Bld) [Mass/Vol] 10.5 g/dL 12.0-15.0 [facility] Hematocrit Auto (Bld) [Volum e fraction]Ordered By: Sosa Alcala on 11-12-2022 Hematocrit (Bld) [Volume fraction] 32.4 % 37-47 [facility] Laboratory - Chemistry and C hemistry - challengeOrdered By: Sosa Alcala on 11-12-2022 CO2 [Moles/Vol] 28.0 mmol/L 21.0-32.0 [facility] Urea nitrogen/Creatinine [Mass ratio] 37.2 mg/mg 10-20 [facility] No Panel InformationOrdered By: Sosa Alcala on 11-12-2022 Estimated Creatinine Clearance Calc 53.22 ml/min [facility] Estimated GFR (MDRD) Amer 79 mL/min >60 [facility] Comment on above: GFR Calc Estimated GFR (MDRD) Non-Af Amer 65 mL/min >60 [facility] Comment on above: Non- GFR Calc Serum or plasma calcium angie urement (mass/volume)Ordered By: Sosa Alcala on 11-12-2022 Calcium [Mass/Vol] 8.8 mg/dL 8.5-10.1 [facility] Serum or plasma creatinine m easurement (mass/volume)Ordered By: Sosa Alcala on 11-12-2022 Creatinine [Mass/Vol] 0.91 mg/dL 0.55-1.02 [facility] Comment on above: The validity of the calculated GFR & GFRAA in patients over 70 years has not been determined. Clinical correlation is essential. Serum or plasma urea nitroge n measurement (mass/volume)Ordered By: Sosa Alcala on 11-12-2022 Urea nitrogen [Mass/Vol] 34 mg/dL 7-18 [facility] Thin prep Papanicolaou smear with manual screeningOrdered By: Sosa Alcala on 11-12-2022 Thin prep Papanicolaou smear with manual screening 3 5-15 [facility] Absolute lymphocyte countOrd ered By: Sosa Alcala on 11-09-2022 Lymphocytes Auto (Unsp spec) [#/Vol] 0.90 10*3/uL 0.83-4.51 [facility] Basophil percentageOrdered B y: Sosa Alcala on 11-09-2022 Basophils/100 WBC (Bld) 1.2 % 0-1 [facility] Eosinophils/100 WBC (Bld) 2.9 % 0-5 [facility] Neutrophils (Bld) [#/Vol] 3.3 10*3/uL 2.0-7.7 [facility] Neutrophils/100 WBC (Bld) 63.4 % 47-70 [facility] WBC (Bld) [#/Vol] 5.2 10*3/uL 4.4-11.0 [facility] Blood erythrocytes count (nu mber/volume)Ordered By: Sosa Alcala on 11-09-2022 RBC (Bld) [#/Vol] 3.50 10*6/uL 4.2-5.4 [facility] Blood lymphocytes/100 leukoc ytesOrdered By: Sosa Alcala on 11-09-2022 Lymphocytes/100 WBC (Bld) 17.3 % 19-41 [facility] Blood monocytes/100 leukocyt esOrdered By: Sosa Alcala on 11-09-2022 Monocytes/100 WBC (Bld) 14.6 % 0-10 [facility] Blood platelet mean volumeOr dered By: Sosa Alcala on 11-09-2022 Platelet mean volume (Bld) [Entitic vol] 11.5 fL 6.2-12.0 [facility] Determination of erythrocyte mean corpuscular volume (MCV)Ordered By: Sosa Alcala on 11-09-2022 MCV (RBC) [Entitic vol] 100.3 fL 81-99 [facility] Erythrocyte sedimentation ra teOrdered By: Sosa Alcala on 11-09-2022 ESR (Bld) [Velocity] 14 mm/h 0-30 [facility] Laboratory - Hematology and Cell countsOrdered By: Sosa Alcala on 11-09-2022 Erythrocyte distribution width (RBC) [Entitic vol] 48.4 fL 35.1-43.9 [facility] Erythrocyte distribution width (RBC) [Ratio] 13.3 % 11.6-14.6 [facility] Immature granulocytes/100 WBC (Bld) 0.600 % 0.0-0.9 [facility] Comment on above: IG% - Immature Granu locytes (promyelocytes, myelocytes and metamyelocytes) > 1% indicates that a LEFT SHIFT is Present. MCH (RBC) [Entitic mass] 32.3 pg 27.0-32.0 [facility] Nucleated RBC/100 WBC (Bld) [Ratio] 0 % 0-5 [facility] MCHC Auto (RBC) [Mass/Vol]Or dered By: Sosa Alcala on 11-09-2022 MCHC (RBC) [Mass/Vol] 32.2 g/dL 32-36 [facility] Platelets bldOrdered By: Nila Alcala on 11-09-2022 Platelets (Bld) [#/Vol] 174 10*3/uL 150-450 [facility] Serum or plasma C reactive p rotein measurement (mass/volume)Ordered By: Sosa Alcala on 11-09-2022 CRP [Mass/Vol] 4.47 mg/L 0.0-3.0 [facility] Comment on above: C-Reactive Protein ( CRP) provides useful information for thediagnosis, therapy and monitoring of inflammatory processesand associated diseases. For the evaluation of Relative Riskfor Cardiovascular Disease, a High Sensitivity CRP (HSCRP)should be ordered. Basophil percentageOrdered B y: Sosa Alcala on 11-01-2022 Basophil percentage 0-5 SEEN /hpf 0-5 [facility] Bilirubin Test strip Ql (U)O rdered By: Sosa Alcala on 11-01-2022 Bilirubin Ql (U) Negative Negative [facility] Culture, urineOrdered By: Gilma Alcala on 11-01-2022 Bacteria identified Cx Nom (U) Strep salivarius sp salivarius [facility] Bacteria identified Cx Nom (U) Streptococcus mitis/ oralis [facility] Ketones Test strip Ql (U)Ord ered By: Sosa Alcala on 11-01-2022 Ketones Ql (U) Negative Negative [facility] Mucus LM Ql (Urine sed)Order ed By: Sosa Alcala on 11-01-2022 Mucus Ql (Urine sed) 0 SEEN /hpf [facility] Nitrite Test strip Ql (U)Ord ered By: Sosa Alcala on 11-01-2022 Nitrite Ql (U) Negative Negative [facility] Protein Test strip Ql (U)Ord ered By: Sosa Alcala on 11-01-2022 Protein Ql (U) Negative Negative [facility] Squamous epithelial cells de tection in urine sediment by light microscopyOrdered By: Sosa Alcala on 11-01-2022 Epithelial cells.squamous LM Ql (Urine sed) 0-5 SEEN /hpf 5-10 [facility] Urine blood detectionOrdered By: Sosa Alcala on 11-01-2022 RBC Ql (U) Negative Negative [facility] RBC Ql (U) 0 SEEN /hpf 0-5 [facility] Urine clarityOrdered By: Nila Alcala on 11-01-2022 Clarity (U) Clear Clear [facility] Urine color determinationOrd ered By: Sosa Aclala on 11-01-2022 Color (U) Yellow Yellow [facility] Urine glucose detectionOrder ed By: Sosa Alcala on 11-01-2022 Glucose Ql (U) Normal mg/dl Normal [facility] Urine leukocyte esterase det ection by dipstickOrdered By: Sosa Alcala on 11-01-2022 Leukocyte esterase Test strip Ql (U) 25 /ul Negative [facility] Urine pHOrdered By: Sosa gee on 11-01-2022 pH (U) 6.0 [pH] 5.0 - 8.0 [facility] Urine sediment bacteria coun t by microscopy (number/high power field)Ordered By: Sosa Alcala on 11-01-2022 Bacteria LM.HPF (Urine sed) [#/Area] 0 /[HPF] None Seen [facility] Urine specific gravity measu rementOrdered By: Sosa Alcala on 11-01-2022 Specific gravity (U) [Rel density] 1.015 1.002-1.03 0 [facility] Urobilinogen Auto test strip Ql (U)Ordered By: Sosa Alcala on 11-01-2022 Urobilinogen Ql (U) Normal mg/dl Normal [facility] Basophil percentageOrdered B y: Sosa Alcala on 10-30-2022 Basophil percentage 3.6 mg/dL 2.5-4.9 [facility] Bilirubin [Mass/Vol] 0.60 mg/dL 0.20-1.00 [facility] Comment on above: For patients on eltr ombopag therapy, use of Dimension [place] TBIL is not recommended. Protein [Mass/Vol] 7.1 g/dL 6.4-8.2 [facility] Blood or tissue coagulation factor II targeted mutation analysis by molecular geneticOrdered By: Sosa Alcala on 10-30-2022 F2 gene targeted mutation analysis [employer] Nom (Bld/Tiss) See comment [facility] Comment on above: TEST RESULTS LIMITS Factor II, DNA Analysis Result: c.*97G>A - Not DetectedThis result is not associated with an increased risk for venous thromboembolism. See Additional Clinical Information and Comments.Additional Information: Additional Clinical Information:Venous thromboembolism is a multifactorial disease influenced by genetic, environmental, and circumstantial risk factors. The c.*97G>A variant in the F2 gene is a genetic risk factor for venous thromboembolism. Heterozygous carriers have a 2- to 4-fold increased risk for venous thromboembolism. Homozygotes for the c.*97G>A variant are rare. The annual risk of VTE in homozygotes has been reported to be 1.1%/year. Individuals who carry both a c.*97G>A variant in the F2 gene and a c.1601G>A (p. [id number]) variant in the F5 gene (commonly referred to as Factor V Leiden) have an approximately 20-fold increased risk for venous thromboembolism. Risks are likely alyson even higher in more complex genotype combinations involving the F2 c.*97G>A variant and Factor V Leiden (PMID: 62052207). Additional risk factors include but are not limited to: deficiency of protein C, protein S, or antithrombin III, age, male sex, personal or family history of deep vein thromboembolism, smoking, surgery, prolonged immobilization, malignant neoplasm, tamoxifen treatment, raloxifenetreatment, oral contraceptive use, hormone replacement therapy, and . Management of thrombotic risk and thrombotic events should follow established guidelines and fit the clinical circumstance. This result cannot predict the occurrence or recurrence of a thrombotic event.Comments:Genetic counseling is recommended to discuss the potential clinical implications of positive results, as well as recommendations for testing family members.Genetic Coordinators are available for health care providers to discuss results at [phone] ([phone] Details:Variant analyzed: c.*97G>A, previously referred to as [id number]/Limitations:DNA analysis of the F2 gene (NM_000506.5) was performed by PCRamplification followed by restriction enzyme analysis. The diagnostic sensitivity is >99%. Results must be combined with clinical information for the most accurate interpretation. Molecular-based testing is highly accurate, but as in any laboratory test, diagnostic errors may occur. False positive or false negative results may occur for reasons that include genetic variants, blood transfusions, bone marrow transplantation, somatic or tissue-specific mosaicism,mislabeled samples, or erroneous representation of familyrelationships.This test was developed and its performance characteristics determined by [employer]. It has not been cleared or approved by the Food and Drug Administration.References:Delonte Donovan, Roz PATRICIO, Serafin R, Kim WW, Johnnie JH; [employer] Professional Practice and Guidelines Committee. Addendum: [employer] consensus statement on factor V Leiden mutation testing. Sally Med. 2020Jul 18. doi: 10.1038/[id number]-q. PMID: 04800350.Ron GRAY. Prothrombin Thrombophilia. 2005Dec 07[Updated 2020Jun 19]. In: Arvind MP, Inocente HH, Mira RA, et al., editors. Dorinda(R) [Internet]. [place] ([place]): [facility]; 2611-8093. Available from:https://www.ncbi.nlm.nih.gov/books/ZHO5678/Akhil Donovan, Roz PATRICIO, Nabil X, Eder B, Sandoval EB, Glo P, Kelli CS; [employer] Laboratory Acquisitions Analyst Committee. Venous thromboembolism laboratory testing (factor V Leiden and factor II c.*97G>A), 2018 update: a technical standard of the [employer] ([employer]). Sally Med. 2017;20(12):8944-9851.doi: 10.1038/[id number]-l. Epub 2017Feb 17. PMID: 36151996.Reviewed By: Jann Sal, PhDDirector, Molecular Genetics TESTING PERFORMED AT [facility]. ORIGINAL REPORT ON FILE IN LAB CONTAINS ADDITIONAL TEST SITE INFORMATION. Functional protein C measure mentOrdered By: Sosa Alcala on 10-30-2022 Protein C actual/normal Chromogenic method (PPP) [Rel catalytic activity/Vol] See comment [facility] Comment on above: TEST RESULTS LIMITSP rotein C-Functional 185 High % 73-180Elevated protein C activity is of no known clinical significance. TESTING PERFORMED AT [facility]. ORIGINAL REPORT ON FILE IN LAB CONTAINS ADDITIONAL TEST SITE INFORMATION. Laboratory - Chemistry and C hemistry - challengeOrdered By: Sosa Alcala on 10-30-2022 ALP [Catalytic activity/Vol] 130 U/L 45-117 [facility] ALT [Catalytic activity/Vol] 20 U/L 13-56 [facility] Globulin (S) [Mass/Vol] 3.9 g/dL 2.2-4.2 [facility] Magnesium [Mass/Vol] 2.1 mg/dL 1.6-2.6 [facility] No Panel InformationOrdered By: Sosa Alcala on 10-30-2022 Anti-Cardiolipin IgM Antibody Not Reportable [facility] Factor V Leiden Mutation See comment [facility] Comment on above: TEST RESULTS LIMITSF actor V LeidenResult: c.1601G>A (p.Mdl314Oui) - Not DetectedThis result is not associated with an increased risk for venous thromboembolism. See Additional Clinical Information and Comments.Additional Clinical Information:Venous thromboembolism is a multifactorial disease influenced by genetic, environmental, and circumstantial risk factors. The c.1601G>A (p. [id number]) variant in the F5 gene, commonly referred to as Factor V Leiden, is a genetic risk factor for venous thromboembolism.Heterozygous carriers of this variant have a 6- to 8-fold increased risk for venous thromboembolism. Individuals homozygous for this variant (ie, with a copy of the variant on each chromosome) have an approximately 80-fold increased risk for venous thromboembolism.Individuals who carry both a c.*97G>A variant in the F2 gene and Factor V Leiden have an approximately 20-fold increased risk for venous thromboembolism. Risks are likely to be even higher in more complex genotype combinations involving the F2 c.*97G>A variant and Factor V Leiden (PMID: 87129777). Additional risk factors include but are not limited to: deficiency of protein C, protein S, or antithrombin III, age, male sex, personal or family history of deep vein thromboembolism, smoking, surgery, prolonged immobilization,malignant neoplasm, tamoxifen treatment, raloxifene treatment, oral contraceptive use, hormone replacement therapy, and .Management of thrombotic risk and thrombotic events should follow established guidelines and fit the clinical circumstance. This result cannot predict the occurrence or recurrence of a thrombotic event.Comment:Genetic counseling is recommended to discuss the potential clinical implications of positive results, as well as recommendations for testing family members.Genetic Coordinators are available for health care providers to discuss results at [phone] Details:Variant Analyzed: c.1601G>A (p. [id number]), referred to as Factor V LeidenMethods/Limitations:DNA analysis of the F5 gene (NM_000130.5) was performed by PCRamplification followed by restriction enzyme analysis. The diagnostic sensitivity is >99%. Results must be combined with clinical information for the most accurate interpretation. Molecular-based testing is highly accurate, but as in any laboratory test, diagnostic errors may occur. False positive or false negative results may occur for reasons that include genetic variants, blood transfusions, bone marrow transplantation, somatic or tissue-specific mosaicism,mislabeled samples, or erroneous representation of familyrelationships.This test was developed and its performance characteristicsdetermined by [employer]. It has not been cleared or approved by the Food and Drug Administration.References:Delonte S, Roz PATRICIO, Serafin R, Kim WW, Johnnie JH; [employer] Professional Practice and Guidelines Committee. Addendum: [employer] consensus statement on factor V Leiden mutation testing. Sally Med. 2020Jul 18. doi: 10.1038/[id number]-i. PMID: 03046746.Ron GRAY. Factor V Leiden Thrombophilia. 1998September 26(Updated 2017May 19). In: Arvind MP, Inocente HH, Mira RA, et al., editors. AriadnaFreedu.inmaurizio(R) (Internet). [place] ([place]): [facility]; 2212-4120. Available from:https://www.ncbi.nlm.nih.gov/books/VCE4342/Akhil S, Roz PATRICIO, Nabil X, Eder B, Sandoval EB, Glo P, Kelli CS;[employer] Laboratory Acquisitions Analyst Committee. Venous thromboembolism laboratory testing (factor V Leiden and factor II c.*97G>A), 2018 update: a technical standard of the [employer] ([employer]). Sally Med. 2018 Apr;20(12):4917-4401. doi: 10.1038/[id number]-w. Epub 2017Feb 17. PMID: 17786873.Reviewed By: 03 Milla Mario, PhD TESTING PERFORMED AT [facility]. ORIGINAL REPORT ON FILE IN LAB CONTAINS ADDITIONAL TEST SITE INFORMATION. Platelet poor plasma antithr ombin actual/normal ratio by chromogenic method (relativeOrdered By: Sosa Alcala on 10-30-2022 Antithrombin actual/normal Chromogenic method (PPP) [Rel catalytic activity/Vol] See comment [facility] Comment on above: TEST RESULTS LIMITSA ntithrombin Activity 144 High % 75-135An elevated antithrombin activity is of no known clinicalsignificance. Direct Xa inhibitor anticoagulants such as rivaroxaban, apixaban and edoxaban will lead to spuriously elevated antithrombin activity levels possibly masking a deficiency. [facility] ORIGINAL REPORT ON FILE IN LAB CONTAINS ADDITIONAL TEST SITE INFORMATION. Protein C antigen assayOrder ed By: Sosa Alcala on 10-30-2022 Protein C Ag actual/normal IA (PPP) [Relative mass conc] See comment [facility] Comment on above: TEST RESULTS LIMITSP rotein C Antigen 192 High % 60-150 [facility] ORIGINAL REPORT ON FILE IN LAB CONTAINS ADDITIONAL TEST SITE INFORMATION. Serum beta 2 glycoprotein 1 IgA antibody detectionOrdered By: Sosa Alcala on 10-30-2022 Beta 2 glycoprotein 1 IgA Ql (S) Not Reportable [facility] Serum beta 2 glycoprotein 1 IgG antibody detectionOrdered By: Sosa Alcala on 10-30-2022 Beta 2 glycoprotein 1 IgG Ql (S) See comment [facility] Comment on above: TEST RESULTS LIMITSB eta-2 Glycoprotein I Ab, IgG01 <9 GPI IgG units 0-20Please Note: 01The reference interval reflects a 3SD or 99th percentile interval,which is thought to represent a potentially clinically significantresult in accordance with the International Consensus Statement onthe classification criteria for definitive antiphospholipid syndrome(APS). J Thromb Haem 2006;4:295-306.Beta-2 Glycoprotein I Ab, IgA01 9 GPI IgA units 0-25Please Note: 01The reference interval reflects a 3SD or 99th percentile interval,which is thought to represent a potentially clinically significantresult in accordance with the International Consensus Statement onthe classification criteria for definitive antiphospholipid syndrome(APS). J Thromb Haem 2006;4:295-306.Beta-2 Glycoprotein I Ab, IgM01 <9 GPI IgM units 0-32Please Note: 01The reference interval reflects a 3SD or 99th percentile interval,which is thought to represent a potentially clinically significantresult in accordance with the International Consensus Statement onthe classification criteria for definitive antiphospholipid syndrome(APS). J Thromb Haem 2006;4:295-306. TESTING PERFORMED AT [facility]. ORIGINAL REPORT ON FILE IN LAB CONTAINS ADDITIONAL TEST SITE INFORMATION. Serum beta 2 glycoprotein 1 IgM antibody detectionOrdered By: Sosa Alcala on 10-30-2022 Beta 2 glycoprotein 1 IgM Ql (S) Not Reportable [facility] Serum cardiolipin IgG antibo dy assay by immunoassay (units/volume)Ordered By: Sosa Alcala on 10-30-2022 Cardiolipin IgG IA Qn (S) See comment [facility] Comment on above: TEST RESULTS LIMITSA nticardiolipin Ab, IgG/M, QnAnticardiolipin Ab,IgG,Qn <9 GPL U/mL 0-14 Negative: <15 Indeterminate: 15 - 20 Low-Med Positive: >20 - 80 High Positive: >80Anticardiolipin Ab,IgM,Qn <9 MPL U/mL 0-12 Negative: <13 Indeterminate: 13 - 20 Low-Med Positive: >20 - 80 High Positive: >80 TESTING PERFORMED AT [facility]. ORIGINAL REPORT ON FILE IN LAB CONTAINS ADDITIONAL TEST SITE INFORMATION. Serum or plasma albumin angie urement (mass/volume)Ordered By: Sosa Alcala on 10-30-2022 Albumin [Mass/Vol] 3.2 g/dL 3.2-5.0 [facility] Serum or plasma albumin/glob ulin mass ratioOrdered By: Sosa Alcala on 10-30-2022 Albumin/Globulin [Mass ratio] 0.8 {ratio} 0.9-2.4 [facility] Thin prep Papanicolaou smear with manual screeningOrdered By: Sosa Alcala on 10-30-2022 Thin prep Papanicolaou smear with manual screening 13 U/L 15-37 [facility] Whole blood hemoglobin A1c/t otal hemoglobin ratio (mass fraction)Ordered By: Sosa Alcala on 10-30-2022 HbA1c (Bld) [Mass fraction] 5.4 % 3.8-5.6 [facility] Comment on above: Normal < 5.7 % Predi abetic 5.7 - 6.4 % Diabetic >or= 6.5 % Please note range changes. Bacteria identified Cx Nom ( Wound)Ordered By: Sosa Alcala on 10-29-2022 Wound Culture Staphylococcus aureus [facility] Gram stain for investigation of transfusion reactionOrdered By: Sosa Patricklinnette on 10-29-2022 Microscopic observation Gram stain Nom (Unsp spec) [facility] Absolute lymphocyte countOrd ered By: Dr. Escalante on 10-28-2022 Lymphocytes Auto (Unsp spec) [#/Vol] 0.89 10*3/uL 0.83-4.51 [facility] Basophil percentageOrdered B y: Dr. Escalante on 10-28-2022 Basophils/100 WBC (Bld) 0.9 % 0-1 [facility] Chloride [Moles/Vol] 107 mmol/L 98-107 [facility] Eosinophils/100 WBC (Bld) 2.4 % 0-5 [facility] Glucose [Mass/Vol] 92 mg/dL 74-106 [facility] Neutrophils (Bld) [#/Vol] 4.6 10*3/uL 2.0-7.7 [facility] Neutrophils/100 WBC (Bld) 70.2 % 47-70 [facility] Potassium [Moles/Vol] 3.1 mmol/L 3.5-5.1 [facility] Sodium [Moles/Vol] 141 mmol/L 136-145 [facility] WBC (Bld) [#/Vol] 6.6 10*3/uL 4.4-11.0 [facility] Blood erythrocytes count (nu mber/volume)Ordered By: Dr. Escalante on 10-28-2022 RBC (Bld) [#/Vol] 3.50 10*6/uL 4.2-5.4 [facility] Blood hemoglobin measurement (mass/volume)Ordered By: Dr. Escalante on 10-28-2022 Hemoglobin (Bld) [Mass/Vol] 11.2 g/dL 12.0-15.0 [facility] Blood lymphocytes/100 leukoc ytesOrdered By: Dr. Escalante on 10-28-2022 Lymphocytes/100 WBC (Bld) 13.5 % 19-41 [facility] Blood monocytes/100 leukocyt esOrdered By: Dr. Escalante on 10-28-2022 Monocytes/100 WBC (Bld) 12.2 % 0-10 [facility] Blood platelet mean volumeOr dered By: Dr. Escalante on 10-28-2022 Platelet mean volume (Bld) [Entitic vol] 11.3 fL 6.2-12.0 [facility] Determination of erythrocyte mean corpuscular volume (MCV)Ordered By: Dr. Escalante on 10-28-2022 MCV (RBC) [Entitic vol] 98.9 fL 81-99 [facility] Hematocrit Auto (Bld) [Volum e fraction]Ordered By: Dr. Escalante on 10-28-2022 Hematocrit (Bld) [Volume fraction] 34.6 % 37-47 [facility] Laboratory - Chemistry and C hemistry - challengeOrdered By: Dr. Escalante on 10-28-2022 CO2 [Moles/Vol] 28.0 mmol/L 21.0-32.0 [facility] Urea nitrogen/Creatinine [Mass ratio] 20.0 mg/mg 10-20 [facility] Laboratory - Hematology and Cell countsOrdered By: Dr. Escalante on 10-28-2022 Erythrocyte distribution width (RBC) [Entitic vol] 49.1 fL 35.1-43.9 [facility] Erythrocyte distribution width (RBC) [Ratio] 13.5 % 11.6-14.6 [facility] Immature granulocytes/100 WBC (Bld) 0.800 % 0.0-0.9 [facility] Comment on above: IG% - Immature Granu locytes (promyelocytes, myelocytes and metamyelocytes) > 1% indicates that a LEFT SHIFT is Present. MCH (RBC) [Entitic mass] 32.0 pg 27.0-32.0 [facility] Nucleated RBC/100 WBC (Bld) [Ratio] 0 % 0-5 [facility] MCHC Auto (RBC) [Mass/Vol]Or dered By: Dr. Escalante on 10-28-2022 MCHC (RBC) [Mass/Vol] 32.4 g/dL 32-36 [facility] No Panel InformationOrdered By: Dr. Escalante on 10-28-2022 Estimated Creatinine Clearance Calc 53.81 ml/min [facility] Estimated GFR (MDRD) Amer 81 mL/min >60 [facility] Comment on above: GFR Calc Estimated GFR (MDRD) Non-Af Amer 67 mL/min >60 [facility] Comment on above: Non- GFR Calc Platelets bldOrdered By: Dr. Escalante on 10-28-2022 Platelets (Bld) [#/Vol] 149 10*3/uL 150-450 [facility] Serum or plasma calcium angie urement (mass/volume)Ordered By: Dr. Escalante on 10-28-2022 Calcium [Mass/Vol] 9.1 mg/dL 8.5-10.1 [facility] Serum or plasma creatinine m easurement (mass/volume)Ordered By: Dr. Escalante on 10-28-2022 Creatinine [Mass/Vol] 0.90 mg/dL 0.55-1.02 [facility] Comment on above: The validity of the calculated GFR & GFRAA in patients over 70 years has not been determined. Clinical correlation is essential. Serum or plasma urea nitroge n measurement (mass/volume)Ordered By: Dr. Escalante on 10-28-2022 Urea nitrogen [Mass/Vol] 18 mg/dL 7-18 [facility] Thin prep Papanicolaou smear with manual screeningOrdered By: Dr. Escalante on 10-28-2022 Thin prep Papanicolaou smear with manual screening 6 5-15 [facility] No Panel InformationOrdered By: Dr. Wright on 10-25-2022 Vitamin D 25-Hydroxy 48.2 ng/mL [facility] Comment on above: Vitamin D 25(OH) Sta tus Range Deficiency <20 ng/mL (50nmol/L) Insufficiency 20 - 30 ng/mL (50 - 75 nmol/L) Sufficiency 30 - 100 ng/mL (75 - 250 nmol/L) Toxicity >100 ng/mL (>250 nmol/L) Absolute lymphocyte countOrd ered By: Dr. La on 08-12-2022 Lymphocytes Auto (Unsp spec) [#/Vol] 0.87 10*3/uL 0.83-4.51 [facility] Basophil percentageOrdered B y: Dr. La on 08-12-2022 Basophils/100 WBC (Bld) 1.2 % 0-1 [facility] Bilirubin [Mass/Vol] 0.40 mg/dL 0.20-1.00 [facility] Comment on above: For patients on eltr ombopag therapy, use of Dimension [place] TBIL is not recommended. Chloride [Moles/Vol] 103 mmol/L 98-107 [facility] Eosinophils/100 WBC (Bld) 1.2 % 0-5 [facility] Glucose [Mass/Vol] 100 mg/dL 74-106 [facility] Comment on above: Fasting Glucose resu lt from 100 to 125 mg/dL suggests IMPAIRED HOMEOSTASIS per A.D.A. criteria. Neutrophils (Bld) [#/Vol] 4.1 10*3/uL 2.0-7.7 [facility] Neutrophils/100 WBC (Bld) 71.7 % 47-70 [facility] Potassium [Moles/Vol] 3.5 mmol/L 3.5-5.1 [facility] Protein [Mass/Vol] 7.4 g/dL 6.4-8.2 [facility] Sodium [Moles/Vol] 139 mmol/L 136-145 [facility] WBC (Bld) [#/Vol] 5.7 10*3/uL 4.4-11.0 [facility] Blood erythrocytes count (nu mber/volume)Ordered By: Dr. La on 08-12-2022 RBC (Bld) [#/Vol] 4.16 10*6/uL 4.2-5.4 [facility] Blood hemoglobin measurement (mass/volume)Ordered By: Dr. La on 08-12-2022 Hemoglobin (Bld) [Mass/Vol] 13.2 g/dL 12.0-15.0 [facility] Blood lymphocytes/100 leukoc ytesOrdered By: Dr. La on 08-12-2022 Lymphocytes/100 WBC (Bld) 15.3 % 19-41 [facility] Blood monocytes/100 leukocyt esOrdered By: Dr. La on 08-12-2022 Monocytes/100 WBC (Bld) 10.2 % 0-10 [facility] Blood platelet mean volumeOr dered By: Dr. La on 08-12-2022 Platelet mean volume (Bld) [Entitic vol] 11.1 fL 6.2-12.0 [facility] Determination of erythrocyte mean corpuscular volume (MCV)Ordered By: Dr. La on 08-12-2022 MCV (RBC) [Entitic vol] 97.4 fL 81-99 [facility] Hematocrit Auto (Bld) [Volum e fraction]Ordered By: Dr. La on 08-12-2022 Hematocrit (Bld) [Volume fraction] 40.5 % 37-47 [facility] Laboratory - Chemistry and C hemistry - challengeOrdered By: Dr. La on 08-12-2022 ALP [Catalytic activity/Vol] 145 U/L 45-117 [facility] ALT [Catalytic activity/Vol] 23 U/L 13-56 [facility] CO2 [Moles/Vol] 32.0 mmol/L 21.0-32.0 [facility] Globulin (S) [Mass/Vol] 3.6 g/dL 2.2-4.2 [facility] Urea nitrogen/Creatinine [Mass ratio] 18.4 mg/mg 10-20 [facility] Laboratory - Hematology and Cell countsOrdered By: Dr. La on 08-12-2022 Erythrocyte distribution width (RBC) [Entitic vol] 47.9 fL 35.1-43.9 [facility] Erythrocyte distribution width (RBC) [Ratio] 13.2 % 11.6-14.6 [facility] Immature granulocytes/100 WBC (Bld) 0.400 % 0.0-0.9 [facility] Comment on above: IG% - Immature Granu locytes (promyelocytes, myelocytes and metamyelocytes) > 1% indicates that a LEFT SHIFT is Present. MCH (RBC) [Entitic mass] 31.7 pg 27.0-32.0 [facility] Nucleated RBC/100 WBC (Bld) [Ratio] 0 % 0-5 [facility] MCHC Auto (RBC) [Mass/Vol]Or dered By: Dr. La on 08-12-2022 MCHC (RBC) [Mass/Vol] 32.6 g/dL 32-36 [facility] No Panel InformationOrdered By: Dr. La on 08-12-2022 Estimated GFR (MDRD) Amer 78 mL/min >60 [facility] Comment on above: GFR Calc Estimated GFR (MDRD) Non-Af Amer 65 mL/min >60 [facility] Comment on above: Non- GFR Calc Platelets bldOrdered By: Dr. La on 08-12-2022 Platelets (Bld) [#/Vol] 157 10*3/uL 150-450 [facility] Serum or plasma IgA measurem ent (mass/volume)Ordered By: Dr. Chirinos on 08-12-2022 IgA [Mass/Vol] 143 mg/dL 87-352 [facility] Serum or plasma IgG measurem ent (mass/volume)Ordered By: Dr. Chirinos on 08-12-2022 IgG [Mass/Vol] 976 mg/dL 586-1602 [facility] Serum or plasma IgM measurem ent (mass/volume)Ordered By: Dr. Chirinos on 08-12-2022 IgM [Mass/Vol] 13 mg/dL 26-217 [facility] Comment on above: Result confirmed on concentration.Performed at: [facility] [place] [id number] Director: Osvaldo Rich PhD, Phone: [phone] Serum or plasma albumin angie urement (mass/volume)Ordered By: Dr. La on 08-12-2022 Albumin [Mass/Vol] 3.8 g/dL 3.2-5.0 [facility] Serum or plasma albumin/glob ulin mass ratioOrdered By: Dr. La on 08-12-2022 Albumin/Globulin [Mass ratio] 1.1 {ratio} 0.9-2.4 [facility] Serum or plasma calcium angie urement (mass/volume)Ordered By: Dr. La on 08-12-2022 Calcium [Mass/Vol] 9.1 mg/dL 8.5-10.1 [facility] Serum or plasma creatinine m easurement (mass/volume)Ordered By: Dr. La on 08-12-2022 Creatinine [Mass/Vol] 0.93 mg/dL 0.55-1.02 [facility] Comment on above: The validity of the calculated GFR & GFRAA in patients over 70 years has not been determined. Clinical correlation is essential. Serum or plasma urea nitroge n measurement (mass/volume)Ordered By: Dr. La on 08-12-2022 Urea nitrogen [Mass/Vol] 17 mg/dL 7-18 [facility] Thin prep Papanicolaou smear with manual screeningOrdered By: Dr. La on 08-12-2022 Thin prep Papanicolaou smear with manual screening 17 U/L 15-37 [facility] Thin prep Papanicolaou smear with manual screening 4 5-15 [facility] Basophil percentageOrdered B y: Dr. La on 06-18-2022 Chloride [Moles/Vol] 104 mmol/L 98-107 [facility] Glucose [Mass/Vol] 91 mg/dL 74-106 [facility] Potassium [Moles/Vol] 3.6 mmol/L 3.5-5.1 [facility] Sodium [Moles/Vol] 142 mmol/L 136-145 [facility] Laboratory - Chemistry and C hemistry - challengeOrdered By: Dr. La on 06-18-2022 CO2 [Moles/Vol] 29.0 mmol/L 21.0-32.0 [facility] Magnesium [Mass/Vol] 1.9 mg/dL 1.6-2.6 [facility] Urea nitrogen/Creatinine [Mass ratio] 15.6 mg/mg 10-20 [facility] No Panel InformationOrdered By: Dr. La on 06-18-2022 Estimated GFR (MDRD) Amer 65 mL/min >60 [facility] Comment on above: GFR Calc Estimated GFR (MDRD) Non-Af Amer 54 mL/min >60 [facility] Comment on above: Non- GFR Calc Serum or plasma calcium angie urement (mass/volume)Ordered By: Dr. La on 06-18-2022 Calcium [Mass/Vol] 9.2 mg/dL 8.5-10.1 [facility] Serum or plasma creatinine m easurement (mass/volume)Ordered By: Dr. La on 06-18-2022 Creatinine [Mass/Vol] 1.09 mg/dL 0.55-1.02 [facility] Comment on above: The validity of the calculated GFR & GFRAA in patients over 70 years has not been determined. Clinical correlation is essential. Serum or plasma urea nitroge n measurement (mass/volume)Ordered By: Dr. La on 06-18-2022 Urea nitrogen [Mass/Vol] 17 mg/dL 7-18 [facility] Thin prep Papanicolaou smear with manual screeningOrdered By: Dr. La on 06-18-2022 Thin prep Papanicolaou smear with manual screening 9 5-15 [facility] Basophil percentageOrdered B y: Dr. La on 05-03-2022 Bilirubin [Mass/Vol] 0.50 mg/dL 0.20-1.00 [facility] Comment on above: For patients on eltr ombopag therapy, use of [place] TBIL is not recommended. Chloride [Moles/Vol] 105 mmol/L 98-107 [facility] Glucose [Mass/Vol] 81 mg/dL 74-106 [facility] Potassium [Moles/Vol] 3.3 mmol/L 3.5-5.1 [facility] Protein [Mass/Vol] 7.5 g/dL 6.4-8.2 [facility] Sodium [Moles/Vol] 143 mmol/L 136-145 [facility] Bilirubin Test strip Ql (U)O rdered By: Dr. La on 05-03-2022 Bilirubin Ql (U) Negative Negative [facility] Ketones Test strip Ql (U)Ord ered By: Dr. La on 05-03-2022 Ketones Ql (U) Negative Negative [facility] Laboratory - Chemistry and C hemistry - challengeOrdered By: Dr. La on 05-03-2022 ALP [Catalytic activity/Vol] 138 U/L 45-117 [facility] ALT [Catalytic activity/Vol] 28 U/L 13-56 [facility] CO2 [Moles/Vol] 31.0 mmol/L 21.0-32.0 [facility] Globulin (S) [Mass/Vol] 3.8 g/dL 2.2-4.2 [facility] Natriuretic peptide B (Bld) [Mass/Vol] 63.8 pg/mL 0-100 [facility] Urea nitrogen/Creatinine [Mass ratio] 14.3 mg/mg 10-20 [facility] Nitrite Test strip Ql (U)Ord ered By: Dr. La on 05-03-2022 Nitrite Ql (U) Negative Negative [facility] No Panel InformationOrdered By: Dr. La on 05-03-2022 Estimated GFR (MDRD) Amer 73 mL/min >60 [facility] Comment on above: GFR Calc Estimated GFR (MDRD) Non-Af Amer 60 mL/min >60 [facility] Comment on above: Non- GFR Calc Thyroid Stimulating Hormone (TSH) 0.60 uIU/mL 0.358-3.74 [facility] Protein Test strip Ql (U)Ord ered By: Dr. La on 05-03-2022 Protein Ql (U) Negative Negative [facility] Serum or plasma albumin angie urement (mass/volume)Ordered By: Dr. La on 05-03-2022 Albumin [Mass/Vol] 3.7 g/dL 3.2-5.0 [facility] Serum or plasma albumin/glob ulin mass ratioOrdered By: Dr. La on 05-03-2022 Albumin/Globulin [Mass ratio] 1.0 {ratio} 0.9-2.4 [facility] Serum or plasma calcium angie urement (mass/volume)Ordered By: Dr. La on 05-03-2022 Calcium [Mass/Vol] 8.8 mg/dL 8.5-10.1 [facility] Serum or plasma creatinine m easurement (mass/volume)Ordered By: Dr. La on 05-03-2022 Creatinine [Mass/Vol] 0.98 mg/dL 0.55-1.02 [facility] Comment on above: The validity of the calculated GFR & GFRAA in patients over 70 years has not been determined. Clinical correlation is essential. Serum or plasma urea nitroge n measurement (mass/volume)Ordered By: Dr. La on 05-03-2022 Urea nitrogen [Mass/Vol] 14 mg/dL 7-18 [facility] Thin prep Papanicolaou smear with manual screeningOrdered By: Dr. aL on 05-03-2022 Thin prep Papanicolaou smear with manual screening 18 U/L 15-37 [facility] Thin prep Papanicolaou smear with manual screening 7 5-15 [facility] Urine blood detectionOrdered By: Dr. La on 05-03-2022 RBC Ql (U) Negative Negative [facility] Urine clarityOrdered By: Dr. La on 05-03-2022 Clarity (U) Clear Clear [facility] Urine color determinationOrd ered By: Dr. aL on 05-03-2022 Color (U) Yellow Yellow [facility] Urine glucose detectionOrder ed By: Dr. La on 05-03-2022 Glucose Ql (U) Normal mg/dl Normal [facility] Urine leukocyte esterase det ection by dipstickOrdered By: Dr. La on 05-03-2022 Leukocyte esterase Test strip Ql (U) Negative Negative [facility] Urine pHOrdered By: Dr. Mei gabriel on 05-03-2022 pH (U) 6.5 [pH] 5.0 - 8.0 [facility] Urine specific gravity measu rementOrdered By: Dr. La on 05-03-2022 Specific gravity (U) [Rel density] 1.015 1.002-1.03 0 [facility] Urobilinogen Auto test strip Ql (U)Ordered By: Dr. La on 05-03-2022 Urobilinogen Ql (U) Normal mg/dl Normal [facility] Absolute lymphocyte countOrd ered By: VARUN SHAH on 03-03-2022 Lymphocytes Auto (Unsp spec) [#/Vol] 0.82 10*3/uL 0.83-4.51 [facility] Basophil percentageOrdered B y: VARUN SHAH on 03-03-2022 Basophils/100 WBC (Bld) 1.1 % 0-1 [facility] Bilirubin [Mass/Vol] 0.40 mg/dL 0.20-1.00 [facility] Comment on above: For patients on eltr ombopag therapy, use of [place] TBIL is not recommended. Chloride [Moles/Vol] 105 mmol/L 98-107 [facility] Eosinophils/100 WBC (Bld) 2.0 % 0-5 [facility] Glucose [Mass/Vol] 85 mg/dL 74-106 [facility] Neutrophils (Bld) [#/Vol] 4.6 10*3/uL 2.0-7.7 [facility] Neutrophils/100 WBC (Bld) 72.0 % 47-70 [facility] Potassium [Moles/Vol] 3.7 mmol/L 3.5-5.1 [facility] Protein [Mass/Vol] 7.5 g/dL 6.4-8.2 [facility] Sodium [Moles/Vol] 143 mmol/L 136-145 [facility] WBC (Bld) [#/Vol] 6.4 10*3/uL 4.4-11.0 [facility] Blood erythrocytes count (nu mber/volume)Ordered By: VARUN SHAH on 03-03-2022 RBC (Bld) [#/Vol] 4.15 10*6/uL 4.2-5.4 [facility] Blood hemoglobin measurement (mass/volume)Ordered By: VARUN SHAH on 03-03-2022 Hemoglobin (Bld) [Mass/Vol] 13.2 g/dL 12.0-15.0 [facility] Blood lymphocytes/100 leukoc ytesOrdered By: VARUN SHAH on 03-03-2022 Lymphocytes/100 WBC (Bld) 12.8 % 19-41 [facility] Blood monocytes/100 leukocyt esOrdered By: VARUN SHAH on 03-03-2022 Monocytes/100 WBC (Bld) 11.8 % 0-10 [facility] Blood platelet mean volumeOr dered By: VARUN SHAH on 03-03-2022 Platelet mean volume (Bld) [Entitic vol] 11.8 fL 6.2-12.0 [facility] Determination of erythrocyte mean corpuscular volume (MCV)Ordered By: VARUN SHAH on 03-03-2022 MCV (RBC) [Entitic vol] 95.9 fL 81-99 [facility] Hematocrit Auto (Bld) [Volum e fraction]Ordered By: VARUN SHAH on 03-03-2022 Hematocrit (Bld) [Volume fraction] 39.8 % 37-47 [facility] Laboratory - Chemistry and C hemistry - challengeOrdered By: VARUN SHAH on 03-03-2022 ALP [Catalytic activity/Vol] 139 U/L 45-117 [facility] ALT [Catalytic activity/Vol] 24 U/L 13-56 [facility] CO2 [Moles/Vol] 30.0 mmol/L 21.0-32.0 [facility] Globulin (S) [Mass/Vol] 3.7 g/dL 2.2-4.2 [facility] Urea nitrogen/Creatinine [Mass ratio] 13.6 mg/mg 10-20 [facility] Laboratory - Hematology and Cell countsOrdered By: VARUN SHAH on 03-03-2022 Erythrocyte distribution width (RBC) [Entitic vol] 47.9 fL 35.1-43.9 [facility] Erythrocyte distribution width (RBC) [Ratio] 13.6 % 11.6-14.6 [facility] Immature granulocytes/100 WBC (Bld) 0.300 % 0.0-0.9 [facility] Comment on above: IG% - Immature Granu locytes (promyelocytes, myelocytes and metamyelocytes) > 1% indicates that a LEFT SHIFT is Present. MCH (RBC) [Entitic mass] 31.8 pg 27.0-32.0 [facility] Nucleated RBC/100 WBC (Bld) [Ratio] 0 % 0-5 [facility] MCHC Auto (RBC) [Mass/Vol]Or dered By: VARUN SHAH on 03-03-2022 MCHC (RBC) [Mass/Vol] 33.2 g/dL 32-36 [facility] No Panel InformationOrdered By: VARUN SHAH on 03-03-2022 Estimated GFR (MDRD) Amer 52 mL/min >60 [facility] Comment on above: GFR Calc Estimated GFR (MDRD) Non-Af Amer 43 mL/min >60 [facility] Comment on above: Non- GFR Calc Platelets bldOrdered By: KWADWO SHAH on 03-03-2022 Platelets (Bld) [#/Vol] 175 10*3/uL 150-450 [facility] Serum or plasma IgA measurem ent (mass/volume)Ordered By: VARUN SHAH on 03-03-2022 IgA [Mass/Vol] 152 mg/dL 87-352 [facility] Serum or plasma IgG measurem ent (mass/volume)Ordered By: VARUN SHAH on 03-03-2022 IgG [Mass/Vol] 911 mg/dL 586-1602 [facility] Serum or plasma IgM measurem ent (mass/volume)Ordered By: VARUN SHAH on 03-03-2022 IgM [Mass/Vol] 13 mg/dL 26-217 [facility] Comment on above: Result confirmed on concentration.Performed at: [facility] [address] [id number] Director: Osvaldo Rich PhD, Phone: [phone] Serum or plasma albumin angie urement (mass/volume)Ordered By: VARUN SHAH on 03-03-2022 Albumin [Mass/Vol] 3.8 g/dL 3.2-5.0 [facility] Serum or plasma albumin/glob ulin mass ratioOrdered By: VARUN SHAH on 03-03-2022 Albumin/Globulin [Mass ratio] 1.0 {ratio} 0.9-2.4 [facility] Serum or plasma calcium angie urement (mass/volume)Ordered By: VARUN SHAH on 03-03-2022 Calcium [Mass/Vol] 9.3 mg/dL 8.5-10.1 [facility] Serum or plasma creatinine m easurement (mass/volume)Ordered By: VARUN SHAH on 03-03-2022 Creatinine [Mass/Vol] 1.32 mg/dL 0.55-1.02 [facility] Comment on above: The validity of the calculated GFR & GFRAA in patients over 70 years has not been determined. Clinical correlation is essential. Serum or plasma urea nitroge n measurement (mass/volume)Ordered By: VARUN SHAH on 03-03-2022 Urea nitrogen [Mass/Vol] 18 mg/dL 7-18 [facility] Thin prep Papanicolaou smear with manual screeningOrdered By: VARUN SHAH on 03-03-2022 Thin prep Papanicolaou smear with manual screening 17 U/L 15-37 [facility] Thin prep Papanicolaou smear with manual screening 8 5-15 [facility] Absolute lymphocyte counton 10-14-2021 Lymphocytes Auto (Unsp spec) [#/Vol] 0.90 10*3/uL 0.83-4.51 [facility] Work Phone: Basophil percentageon 2021 Basophils/100 WBC (Bld) 1.1 % 0-1 [facility] Work Phone: Bilirubin [Mass/Vol] 0.40 mg/dL 0.20-1.00 [facility] Work Phone: Comment on above: For patients on eltr ombopag therapy, use of [place] TBIL is not recommended. Chloride [Moles/Vol] 104 mmol/L 98-107 [facility] Work Phone: Eosinophils/100 WBC (Bld) 2.1 % 0-5 [facility] Work Phone: Glucose [Mass/Vol] 91 mg/dL 74-106 [facility] Work Phone: Neutrophils (Bld) [#/Vol] 3.6 10*3/uL 2.0-7.7 [facility] Work Phone: [phone] Neutrophils/100 WBC (Bld) 69.0 % 47-70 [facility] Work Phone: [phone] Potassium [Moles/Vol] 3.3 mmol/L 3.5-5.1 [facility] Work Phone: [phone] Protein [Mass/Vol] 7.6 g/dL 6.4-8.2 [facility] Work Phone: [phone] Sodium [Moles/Vol] 142 mmol/L 136-145 [facility] Work Phone: [phone] WBC (Bld) [#/Vol] 5.3 10*3/uL 4.4-11.0 [facility] Work Phone: [phone] Blood erythrocytes count (nu mber/volume)on 10-14-2021 RBC (Bld) [#/Vol] 4.13 10*6/uL 4.2-5.4 [facility] Work Phone: [phone] Blood hemoglobin measurement (mass/volume)on 10-14-2021 Hemoglobin (Bld) [Mass/Vol] 13.1 g/dL 12.0-15.0 [facility] Work Phone: [phone] Blood lymphocytes/100 leukoc yteson 06-01-2022 Lymphocytes/100 WBC (Bld) 17.0 % 19-41 [facility] Work Phone: Blood monocytes/100 leukocyt eson 10-14-2021 Monocytes/100 WBC (Bld) 10.6 % 0-10 [facility] Work Phone: Blood platelet mean volumeon 10-14-2021 Platelet mean volume (Bld) [Entitic vol] 11.9 fL 6.2-12.0 [facility] Work Phone: Determination of erythrocyte mean corpuscular volume (MCV)on 10-14-2021 MCV (RBC) [Entitic vol] 95.4 fL 81-99 [facility] Work Phone: Hematocrit Auto (Bld) [Volum e fraction]on 10-14-2021 Hematocrit (Bld) [Volume fraction] 39.4 % 37-47 [facility] Work Phone: Laboratory - Chemistry and C hemistry - challengeon 10-14-2021 ALP [Catalytic activity/Vol] 135 U/L 45-117 [facility] Work Phone: ALT [Catalytic activity/Vol] 27 U/L 13-56 [facility] Work Phone: CO2 [Moles/Vol] 29.0 mmol/L 21.0-32.0 [facility] Work Phone: Globulin (S) [Mass/Vol] 3.7 g/dL 2.2-4.2 [facility] Work Phone: Urea nitrogen/Creatinine [Mass ratio] 19.8 mg/mg 10-20 [facility] Work Phone: Laboratory - Hematology and Cell countson 10-14-2021 Erythrocyte distribution width (RBC) [Entitic vol] 46.4 fL 35.1-43.9 [facility] Work Phone: Erythrocyte distribution width (RBC) [Ratio] 13.2 % 11.6-14.6 [facility] Work Phone: Immature granulocytes/100 WBC (Bld) 0.200 % 0.0-0.9 [facility] Work Phone: Comment on above: IG% - Immature Granu locytes (promyelocytes, myelocytes and metamyelocytes) > 1% indicates that a LEFT SHIFT is Present. MCH (RBC) [Entitic mass] 31.7 pg 27.0-32.0 [facility] Work Phone: Nucleated RBC/100 WBC (Bld) [Ratio] 0 % 0-5 [facility] Work Phone: MCHC Auto (RBC) [Mass/Vol]on 10-14-2021 MCHC (RBC) [Mass/Vol] 33.2 g/dL 32-36 [facility] Work Phone: No Panel Informationon 10-14 Estimated GFR (MDRD) Amer 80 mL/min >60 [facility] Work Phone: Comment on above: GFR Calc Estimated GFR (MDRD) Non-Af Amer 66 mL/min >60 [facility] Work Phone: Comment on above: Non- GFR Calc Platelets bldon 10-14-2021 Platelets (Bld) [#/Vol] 187 10*3/uL 150-450 [facility] Work Phone: Serum or plasma IgA measurem ent (mass/volume)on 10-14-2021 IgA [Mass/Vol] 153 mg/dL [facility] Work Phone: Serum or plasma IgG measurem ent (mass/volume)on 10-14-2021 IgG [Mass/Vol] 988 mg/dL [facility] Work Phone: Serum or plasma IgM measurem ent (mass/volume)on 10-14-2021 IgM [Mass/Vol] 21 mg/dL [facility] Work Phone: Comment on above: Result confirmed on concentration.Performed at: [address] [id number] Director: Osvaldo Rich PhD, Phone: [phone] Serum or plasma albumin angie urement (mass/volume)on 10-14-2021 Albumin [Mass/Vol] 3.9 g/dL 3.2-5.0 [facility] Work Phone: Serum or plasma albumin/glob ulin mass ratioon 10-14-2021 Albumin/Globulin [Mass ratio] 1.1 {ratio} 0.9-2.4 [facility] Work Phone: Serum or plasma calcium angie urement (mass/volume)on 10-14-2021 Calcium [Mass/Vol] 9.0 mg/dL 8.5-10.1 [facility] Work Phone: Serum or plasma creatinine m easurement (mass/volume)on 10-14-2021 Creatinine [Mass/Vol] 0.91 mg/dL 0.55-1.02 [facility] Work Phone: Comment on above: The validity of the calculated GFR & GFRAA in patients over 70 years has not been determined. Clinical correlation is essential. Serum or plasma urea nitroge n measurement (mass/volume)on 10-14-2021 Urea nitrogen [Mass/Vol] 18 mg/dL 7-18 [facility] Work Phone: Thin prep Papanicolaou smear with manual screeningon 10-14-2021 Thin prep Papanicolaou smear with manual screening 20 U/L 15-37 [facility] Work Phone: Thin prep Papanicolaou smear with manual screening 9 5-15 [facility] Work Phone: Blood Pressure Cuff Sizeon 0 10-13-2021 Adult depression screening assessment No [facility] [place] Work Phone: Fall risk assessment b) One or more fall s in the last year [facility] [place] Work Phone: Tobacco use status [facility] b) No [facility] [place] Work Phone: Blood Pressure Cuff Size Large [facility] [place] Work Phone: Established Visit (Otolaryng ology)on 10-13-2021 Established Visit (Otolaryngology) Provider Impressions 65 yo woman with a small left oroantral fistula, recurrent infections CT sinus - there is some loss of bone in the area of concern, inferior mucosal thickening, os is widely patent, there is a retention cyst near the os but not obstructing; right side small inferior maxillary sinus retention cyst s/p left maxillary antrostomy, tom resection; closure of oroantral fistula with buccal fat flap -well healed -follow up in 3 months, will scope then to see how sinuses healed Chief Complaint follow up BMI 38.19, non-smoker Adult Risk ScreeningAdult Risk Screening_: There are no spiritual/cultural practices/values/needs that are important to know Initial Fall Risk Screening: MARIA LUISA has fallen in the last 6 months. She has fallen due to lost balance. Her fall did not result in injury. MARIA LUISA does not have a fear of falling. She needs assistance with walker or wheelchair. Needs assistance walking in her home. She needs assistance in an unfamiliar setting. The patient is using an assistive device. Fall Risk Screening: Patient is identified as a fall risk. Care Plan: High Risk: Low and Moderate risk interventions plus: ensure patient is escorted at all times, do not leave unattended, inform provider of high risk status, discharge by wheelchair or escort assistance, room location, sitter, pre and post sedation/procedure standards, supervised toileting. Altered Mobility: assistive device and unsteady gait. Alteration in Mental Status: no. Altered Elimination: no. Sensory Deficit: no. Unable or Unwilling to Follow Directions: no. High: multiple falls within the last 6 months. History of Present Illness 65 yo woman who presents for evaluation of a 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 Had a small hole that never closed. Periodically will have pus draining out of there and through the nose. Some food/water will also leak out the nose at time. Had CT scan showing some bone loss. Saw Dr. Toney/Trung and was referred here. no blood thinners, no smoking 09-08-21 post-op: doing well, has been rinsing, no bleeding; minimal pain, tolerating PO 5-31-22fu: no pain, had some crusting come out a few times. 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) Past Medical History History of multiple sclerosis (340) (G35) Allergies codeine Recorded By: Belia Van; 07/27/2021 9:37:49 AM Lotrel CAPS Recorded By: Belia Van; 07/27/2021 9:37:49 AM Adhesive Tape Recorded By: Belia Van; 07/27/2021 9:37:49 AM Latex Recorded By: Belia Van; 07/27/2021 9:37:49 AM Current Meds Medication NameInstruction Advil 200 MG Oral Tablet Amantadine HCl - 100 MG Oral CapsuleTAKE 1 CAPSULE BY MOUTH TWICE DAILY FOR 30 DAYS Amitriptyline HCl - 100 MG Oral Tablet Atenolol 50 MG Oral Tablet Baclofen 10 MG Oral Tablet Betamethasone Dipropionate 0.05 % External Cream Bumetanide TABS Cyanocobalamin 1000 MCG/ML Injection SolutionINJECT 1 ML ONCE EVERY MONTH Multi-Vitamin Oral Tablet Ocrevus SOLNinfusion every 6 months PriLOSEC OTC 20 MG Oral Tablet Delayed Release Probiotic CAPS traMADol HCl - 50 MG Oral Tablet Vitals Vital Signs Recorded: 13Oct2021 03:55PM Fccadenswko04.3 F, Temporal Heart Rate80 Csuodadnkap27 Ovkvkbic112, LUE, Sitting Klcqdtnqv38, LUE, Sitting Blood Pressure Cuff SizeLarge Height5 ft 4.5 in Kgxrij517 lb BMI Dceepgnmqd67.19 kg/m2 BSA Calculated2.07 Tobacco Useb) No PHQ-2 #1. Over the last 2 weeks have you felt down, depressed or hopeless? (If yes, answer PHQ-9 below)No PHQ-2 #2. Over the last 2 weeks have you felt little interest or pleasure in doing things? (If yes, answer PHQ-9 below)No Fall Screeningb) One or more falls in the last year O2 Setbwvxsgw42, RA Physical Exam nad alert lin eomi NCAT nasal cavity mild crusting suctioned out, middle meatus clear ocop: buccal graft well healed, no residual hole 'Scores and Scales' Signatures Electronically signed by : Blanca Worrell MD; Oct 13 2021 4:26PM EST (Author) Normal [facility] Established Visit (Otolaryng ology)on 09-08-2021 Established Visit (Otolaryngology) Provider Impressions 65 yo woman with a small left oroantral fistula, recurrent infections CT sinus - there is some loss of bone in the area of concern, inferior mucosal thickening, os is widely patent, there is a retention cyst near the os but not obstructing; right side small inferior maxillary sinus retention cyst s/p left maxillary antrostomy, tom resection; closure of oroantral fistula with buccal fat flap -removed bolster today -cont rinses, soft diet -follow up in 3 weeks Chief Complaint post-op visit, non-smoker Adult Risk ScreeningAdult Risk Screening_: There are no spiritual/cultural practices/values/needs that are important to know Initial Fall Risk Screening: MARIA LUISA has fallen in the last 6 months. She has fallen due to patient states she lowers self to ground frequently, may have broken toe. MARIA LUISA does not have a fear of falling. She does not need assistance with sitting, standing or walking. Does not need assistance walking in her home. She does not need assistance in an unfamiliar setting. The patient is not using an assistive device. Fall Risk Screening: Patient is identified as a fall risk. Care Plan: High Risk: Low and Moderate risk interventions plus: ensure patient is escorted at all times, do not leave unattended, inform provider of high risk status, discharge by wheelchair or escort assistance, room location, sitter, pre and post sedation/procedure standards, supervised toileting. Pain Scale: On a scale of 0 to 10, the patient rates the pain at 0. Living Will. Living Will: No living will on file. Healthcare POA: Health care proxy on file. Declaration of Mental Health Treatment: No mental health treatment on file. Tobacco Screening: MARIA LUISA does not use tobacco. Domestic Violence Screen: Does not feel threatened or abused physically, emotionally or sexually. Do you feel UNSAFE? The patient feels safe in the home. Depression/Suicide Screening: During the past 2 weeks, the patient has not felt down, depressed or hopeless. During the past 2 weeks, the patient has not felt little interest or pleasure in doing things. She does not have a risk of suicide. She has not had thoughts of harming others. [place]-SUICIDE SEVERITY RATING SCALE 1. Have you wished you were or wished you could go to sleep and not wake up? -NO 2. Have you actually had any thoughts of killing yourself? - NO 6. Have you done anything, started to do anything, or prepared to do anything to end your life? - NO. Single alcohol screening question: In the past year the patient has had 5 or more drinks (men) or 4 or more drinks (women)? 0 time(s). Single substance abuse screening question: In the past year the patient has used a recreational drug or used a prescription drug for non-medical reasons? 0 time(s). Procedure or Sedation Areas: patient has not had alcohol, recreational drugs, or prescription drugs for non-medical reasons this morning. Patient Education: The patient denies that they or the person with them has problems with hearing, speaking, seeing, moving around or learning History of Present Illness 65 yo woman who presents for evaluation of a 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 Had a small hole that never closed. Periodically will have pus draining out of there and through the nose. Some food/water will also leak out the nose at time. Had CT scan showing some bone loss. Saw Dr. Toney/Trung and was referred here. 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) Past Medical History History of multiple sclerosis (340) (G35) Allergies codeine Recorded By: Belia Van; 07/27/2021 9:37:49 AM Lotrel CAPS Recorded By: Belia Van; 07/27/2021 9:37:49 AM Adhesive Tape Recorded By: Belia Van; 07/27/2021 9:37:49 AM Latex Recorded By: Belia Van; 07/27/2021 9:37:49 AM Current Meds Medication NameInstruction Advil 200 MG Oral Tablet Amantadine HCl - 100 MG Oral CapsuleTAKE 1 CAPSULE BY MOUTH TWICE DAILY FOR 30 DAYS Amitriptyline HCl - 100 MG Oral Tablet Amoxicillin-Pot Clavulanate 875-125 MG Oral TabletTAKE 1 TABLET BY MOUTH EVERY 12 HOURS WITH MEALS Atenolol 50 MG Oral Tablet Azithromycin 250 MG Oral Tablet Baclofen 10 MG Oral Tablet Betamethasone Dipropionate 0.05 % External Cream Bumetanide TABS Cephalexin 500 MG Oral CapsuleTAKE 1 CAPSULE BY MOUTH THREE TIMES DAILY Clindamycin HCl - 150 MG Oral CapsuleTAKE 1 CAPSULE BY MOUTH 4 TIMES DAILY UNTIL GONE Cyanocobalamin 1000 MCG/ML Injection SolutionINJECT 1 ML ONCE EVERY MONTH Multi-Vitamin Oral Tablet PriLOSEC OTC 20 MG Oral Tablet Delayed Release Probiotic CAPS tiZANidine HCl - 4 MG Oral TabletTAKE 1/2 TO 1 (ONE-HALF TO ONE) TABLET BY MOUTH NEEDED ONCE DAILY traMADol HCl - 50 MG Oral Tablet Vitals Vital S (more content not included)... Normal [facility] Tobacco Screening.on 022 Fall risk assessment b) One or more fall s in the last year [facility] [place] Work Phone: Tobacco use status CPHS b) No [facility] [place] Work Phone: No Panel Informationon 08-31 [facility]-Otolaryn gology-[facility]as[facility] man Work Phone: Order Reconciliationon 08-31 Order Reconciliation Page 1 Discharge Reconciliation Document Reconciliation Type: Discharge requested on behalf of Dewey Cid (Resident) done by Dewey Cid (Resident)) Discharge - Reconciliation: 31-Aug-2021 06:24 by: Dewey Cid (Resident)) Discharge - Reset to Incomplete: 31-Aug-2021 14:10 by: Dewey Cid (Resident)) Discharge - Reconciliation: 31-Aug-2021 14:13 by: Dewey Cid (Resident)) Home Medications EnteredHOME MEDICATIONS AT DISCHARGE DateReconciliation Comment/ Additional Information alendronate 70 mg oral tablet 1 tab(s) orally once a week 28-Aug-2021 14:33 alendronate 70 mg oral tablet 1 tab(s) orally once a week 28-Aug-2021 14:33 alendronate 70 mg oral tablet is continued as alendronate 70 mg oral tablet amantadine 100 mg oral tablet 1 tab(s) orally 2 times a day 28-Aug-2021 14:33 amantadine 100 mg oral tablet 1 tab(s) orally 2 times a day 28-Aug-2021 14:33 amantadine 100 mg oral tablet is continued as amantadine 100 mg oral tablet amitriptyline 100 mg oral tablet 1 tab(s) orally once a day (at bedtime) 28-Aug-2021 14:34 amitriptyline 100 mg oral tablet 1 tab(s) orally once a day (at bedtime) 28-Aug-2021 14:34 amitriptyline 100 mg oral tablet is continued as amitriptyline 100 mg oral tablet atenolol 50 mg oral tablet orally 2 times a day 28-Aug-2021 14:34 atenolol 50 mg oral tablet orally 2 times a day 28-Aug-2021 14:34 atenolol 50 mg oral tablet is continued as atenolol 50 mg oral tablet baclofen 20 mg oral tablet 1 tab(s) orally 3 times a day 28-Aug-2021 14:35 baclofen 20 mg oral tablet 1 tab(s) orally 3 times a day 28-Aug-2021 14:35 baclofen 20 mg oral tablet is continued as baclofen 20 mg oral tablet betamethasone dipropionate 0.05% topical cream Apply topically to affected area 2 times a day, As Needed 28-Aug-2021 14:37 betamethasone dipropionate 0.05% topical cream Apply topically to affected area 2 times a day, As Needed 28-Aug-2021 14:37 betamethasone dipropionate 0.05% topical cream is continued as betamethasone dipropionate 0.05% topical cream bumetanide 2 mg oral tablet orally 2 times a day 28-Aug-2021 14:37 bumetanide 2 mg oral tablet orally 2 times a day 28-Aug-2021 14:37 bumetanide 2 mg oral tablet is continued as bumetanide 2 mg oral tablet clindamycin 1% topical gel Apply topically to affected area 2 times a day 28-Aug-2021 14:39 clindamycin 1% topical gel Apply topically to affected area 2 times a day 28-Aug-2021 14:39 clindamycin 1% topical gel is continued as clindamycin 1% topical gel cyanocobalamin 2 mcg/mL intramuscular solution intramuscular once a month 28-Aug-2021 14:53 cyanocobalamin 2 mcg/mL intramuscular solution intramuscular once a month 28-Aug-2021 14:53 cyanocobalamin 2 mcg/mL intramuscular solution is continued as cyanocobalamin 2 mcg/mL intramuscular solution hydrocortisone valerate 0.2% topical cream Apply topically to affected area 2 times a day 28-Aug-2021 14:40 hydrocortisone valerate 0.2% topical cream Apply topically to affected area 2 times a day 28-Aug-2021 14:40 hydrocortisone valerate 0.2% topical cream is continued as hydrocortisone valerate 0.2% topical cream ibuprofen 400 mg oral tablet 1 tab(s) orally once a day 28-Aug-2021 14:40 ibuprofen 400 mg oral tablet 1 tab(s) orally once a day 28-Aug-2021 14:40 ibuprofen 400 mg oral tablet is continued as ibuprofen 400 mg oral tablet Imitrex 50 mg oral tablet 1 tab(s) orally once, As Needed 28-Aug-2021 14:41 Imitrex 50 mg oral tablet 1 tab(s) orally once, As Needed 28-Aug-2021 14:41 Imitrex 50 mg oral tablet is continued as Imitrex 50 mg oral tablet Ocrevus 300 mg/10 mL intravenous solution 28-Aug-2021 14:46 Ocrevus 300 mg/10 mL intravenous solution 28-Aug-2021 14:46 Ocrevus 300 mg/10 mL intravenous solution is continued as Ocrevus 300 mg/10 mL intravenous solution omeprazole 20 mg oral delayed release capsule 1 cap(s) orally 2 times a day 28-Aug-2021 14:47 omeprazole 20 mg oral delayed release capsule 1 cap(s) orally 2 times a day 28-Aug-2021 14:47 omeprazole 20 mg oral delayed release capsule is continued as omeprazole 20 mg oral delayed release capsule potassium chloride 20 mEq oral tablet, extended release 1 tab(s) orally 2 times a day 28-Aug-2021 14:47 potassium chloride 20 mEq oral tablet, extended release 1 tab(s) orally 2 times a day 28-Aug-2021 14:47 potassium chloride 20 mEq oral tablet, extended release is continued as potassium chloride 20 mEq oral tablet, extended release Proctosol-HC 2.5% topical cream Apply topically to affected area 2 times a day, As Needed 28-Aug-2021 14:48 Proctosol-HC 2.5% topical cream Apply topically to affected area 2 times a day, As Needed 28-Aug-2021 14:48 Proctosol-HC 2.5% topical cream is continued as Proctosol-HC 2.5% topical cream tiZANidine 4 mg oral tablet 28-Aug-2021 14:51 tiZANidine 4 mg oral tablet 28-Aug-2021 14:51 tiZANidine 4 mg oral tablet is continued as tiZANidine 4 (more content not included)... Normal [facility]2021 [facility] Surgical Pathology Department Name MARIA LUISA KITCHEN Pathologist: Celena Yañez MD, Ph.D. Date of Procedure: 08/31/2021 Date Received: 08/31/2021 Date Reported 09/10/2021 Submitting Physician: BLANCA WORRELL MD Location: [facility] Other External # FINAL DIAGNOSIS LEFT MAXILLARY SINUS TISSUE: -- FRAGMENTS OF INFLAMMATORY POLYPS Electronically Signed Out By Celena Yañez MD, Ph.D./MAC By the signature on this report, the individual or group listed as making the Final Interpretation/Diagnosis certifies that they have reviewed this case. Clinical History: Maxillary sinusitis Specimens Submitted As: A: LEFT MAXILLARY SINUS TISSUE Gross Description: Received in formalin, labeled the patient's name and hospital number and left maxillary sinus tissue, are multiple irregular segments of mcconnell-white soft tissue aggregating to 1.5 x 1.5 x 0.4 cm. The specimen is submitted in toto in 1 cassette. keg/09/03/2021 [facility] Department of Pathology [address] [place] [address] Normal [facility] Comment on above: Performed By: #### U HCS #### [facility] Surgical Pathology Department [address] [place] [address] CORONAVIRUS 2019, SCREEN ASY MPTOMATICon 08-29-2021 SARS-CoV-2 (COVID-19) RNA DIONNE+probe Ql (Unsp spec) Not detected Normal Not Detected [facility] Comment on above: Result Comment: . This assay is designed to detect the N, ORF1ab and/or S genes of SARS-CoV-2 via nucleic acid amplification. A Negative (NOT DETECTED) result does not preclude 2019-nCoV infection since the adequacy of sample collection and/or low viral burden may result in presence of viral nucleic acids below the clinical sensitivity of this test method. Negative (NOT DETECTED) result should not be used as the sole basis for treatment or other patient management decisions. Rather negative results should be combined with clinical observations, patient history, and epidemiological information to make patient management decisions. Fact sheet for providers: https://www.fda.gov/media/658141/download Fact sheet for patients: https://www.fda.gov/media/870099/download This test has received FDA Emergency Use Authorization (EUA) and has been verified by [facility] ([facility]). This test is only authorized for the duration of time that circumstances exist to justify the authorization of the emergency use of in vitro diagnostic tests for the detection of SARS-CoV-2 virus and/or diagnosis of COVID-19 infection under section 564(b)(1) of the Act, 21 U.S.C. 360bbb-3(b)(1), unless the authorization is terminated or revoked sooner. [facility] is certified under CLIA-88 as qualified to perform high complexity testing. Testing is performed in the [facility] laboratories located at [address] [place] [address]. Performed By: #### C OV[facility] #### [place] [address] Lab Specimen Source Nasal, Nasopharyngeal Normal [facility] Comment on above: Performed By: #### C OV[facility] #### [place] [address] Coronavirus 2019 RNA by PCR, Screening Asymptomticon 08-29-2021 Coronavirus 2019 RNA by PCR, Screening Asymptomtic Not detected Normal See Below [facility]-Otolaryn gology-[facility] man Work Phone: Comment on above: SOURCE: Nasal, Nasop haryngealReference Range: Not Detected.This assay is designed to detect the N, ORF1ab and/or S genes of SARS-CoV-2 via nucleic acid amplification. A Negative (NOT DETECTED) result does not preclude 2019-nCoV infection since the adequacy of sample collection and/or low viral burden may result in presence of viral nucleic acids below the clinical sensitivity of this test method. Negative (NOT DETECTED) result should not be used as the sole basis for treatment or other patient management decisions. Rather negative results should be combined with clinical observations, patient history, and epidemiological information to make patient management decisions.Fact sheet for providers: https://www.fda.gov/media/929272/downloadFact sheet for patients: https://www.fda.gov/media/461641/downloadThis test has received FDA Emergency Use Authorization (EUA) and has been verified by [facility] ([facility]). This test is only authorized for the duration of time that circumstances exist to justify the authorization of the emergency use of in vitro diagnostic tests for the detection of SARS-CoV-2 virus and/or diagnosis of COVID-19 infection under section 564(b)(1) of the Act, 21 U.S.C. 360bbb-3(b)(1), unless the authorization is terminated or revoked sooner. [facility] is certified under CLIA-88 as qualified to perform high complexity testing. Testing is performed in the [facility] laboratories located at [address] [place] [address]. Covid 19 Resultson 2 SARS-CoV-2 (COVID-19) RNA DIONNE+probe Ql (Unsp spec) NEGATIVE COVID-19 Test Coronaviruses are common world-wide and are the cause of many common colds. SARS-COV2 is a new coronavirus that began circulating worldwide in 2019 so we are calling it COVID-19. It has been estimated that four out of five patients with COVID-19 will recover at home without the need for medical attention. Symptoms of COVID-19 may include cough, fever, shortness of breath, loss of taste or smell and other flu-like symptoms including chills, sore muscles, sore throat, and headache. Severe illness is more common in older people and people with other health problems such as high blood pressure, obesity, and immune system problems. If the test is positive, you have COVID-19. You will be contacted by the ordering physicians office and instructed to remain on home isolation, in accordance with CDC guidelines. You may also be contacted by the [facility] to see if any of your close contacts may have been exposed to the virus and need to quarantine. If the test is negative, you likely do not have COVID-19 at this time, but you still may have a different illness that can spread to other people (like Influenza, or the Flu) and could still be at risk for getting COVID-19. We recommend that you stay away from other people to limit the spread of illness until your symptoms are improving and you are fever-free for 24 hours without the use of fever lowering medications such as acetaminophen or ibuprofen. No test is 100% accurate so if you are still concerned you may have COVID-19, talk to your doctor about the need to continue to stay away from others. Medicines Unless your provider told you not to use the following: Acetaminophen (Tylenol and others) is generally safe. Anti-inflammatory medications, such as Ibuprofen (Advil or Motrin) or Naproxen (Aleve) can also be used. Pmtr-bnp-gwriyuy cough and cold medicines can be used according to the instructions on the package. Some vpqz-bzb-eulfilu medicines also contain acetaminophen. Make sure you are not taking more than your recommended dose. For those not hospitalized, there is no specific treatment available for this illness. Antibiotics do not treat Coronaviruses. Follow-Up Follow up with your doctor by scheduling a virtual visit or consider follow-up at one of our urgent care fever clinics. If you are having difficulty breathing, or are very weak and having difficulty standing, this is a medical emergency. Call 911 or have someone take you to the nearest emergency room immediately. If possible, wear a facemask. Additional guidance from the CDC for patients who tested POSITIVE for COVID-19 How to isolate: Isolate yourself in a specific room at home and limit your contact with others. Use a separate bathroom from other members of the household, when possible. Leave home only to get essential medical care. Do not go to work, school or public areas. Avoid using public transportation, ride-sharing, or taxis. Restrict contact with pets and other animals. If you must care for your pet or be around animals while you are sick, wash your hands before and after your interaction and wear a facemask. Make sure that shared spaces in the home have good airflow, such as by an air conditioner or an opened window, weather permitting. Personal Hygiene Procedures: Wear a face mask when in the same room as other people or pets. If a face mask interferes with your breathing, others should wear a mask when sharing space with you. Frequent hand-washing: wash your hands with soap and water for at least 20 seconds. If soap and water are not available, use alcohol-based hand route relief driver. Avoid touching your eyes, nose, and mouth with unwashed hands. Household Hygiene Procedures: Avoid sharing personal household items such as dishes, glassware, cups, eating utensils, towels or bedding with other people or pets in your home. After use, these items should be washed with soap and hot water. Disinfect all high-touch surfaces every day with antibacterial cleaning solutions such as Lysol wipes, bleach, cleansers, etc. High-touch surfaces include tabletops, doorknobs, bathroom fixtures, toilets, phones, keyboards, tablets and bedside tables. Immediately clean any surfaces that may have blood, poop or body fluids on them, using antibacterial cleaning solutions such as Lysol wipes, bleach, cleansers, etc. If clothing or bedding come into contact with blood, poop or body fluids, they should be washed immediately. Follow the directions on the laundry detergent and clothing labels but hot water is recommended when possible. Stopping home isolation precautions: If possible, consult your doctor before stopping home isolation precautions. According to the CDC, you can discontinue home isolation precautions when you have met both of these criteria: Your fever and respiratory symptoms have been gone for 24 terry (more content not included)... Normal [facility] Patient Profile - Preop v3on 08-28-2021 Patient Profile - Preop v3 Patient Profile - Preop: Initial Info: Patient DemographicsName: MARIA LUISA KITCHEN Date: 1955 Address: [employer] [address] [place] [address] Date/Time [id number] 15:08 Primary Phone [phone] Call Attemptedattempt 1 Instructions Giventime to arrive, bring responsible adult as the limb driver (procedure may be cancelled if no limb driver), insurance information, center location, appropriate clothing, bring glasses/contacts case Prep Instructions ReviewedPt instructed to arrive at 09:15 for 10:30 surgery. Reviewed meds and reminded NPO at midnight. Pt verbalized understanding. How to be AddressedBrenda Spoken Language PreferredEnglish Source of Informationpatient Stated Reason for AdmissionClose the hole in my mouth Primary Contact Name and NumberLora Warren Medications Brought to Hospitalno General Health: Weight in kg102.2 kilogram(s) Weight in uwi370.3 pound(s) Weight Methodstated Height in feet5 feet Height in inches3.98 inch(es) Height in cm162.5 centimeter(s) Height Methodstated BMI (kg/m2)38.702 square meter Patient or Family Member Reaction to Anesthesiano previous reaction Blood Avoidance/Restrictionsnone Previous Transfusion Reactionnot applicable Equipment Currently Used at [facility] Mgmt: Symptoms/Conditions Managed at Homemusculoskeletal Musculoskeletal Symptoms/Conditionsunsteady gait Barriers to Managing Healthnone Relationship/Environ: Lives Withspouse Living Arrangementshouse Resource/Environmental Concernsnone Anticipated Transition [place] [facility] Anticipated at Transitionnone Tobacco Use: Tobacco Useno Pre-op Checklist: Arrival [id number] NPOyes Last Food [id number] 19:00 Last Clear Fluid [id number] 19:00 ID Band On Patientpatient ID (name), allergy Consent Signedyes H&P Completeyes EKG Performedsee results tab Preop Antibioticssent to OR Beta-marilee Last Dose Date/[id number] 09:00 Beta-marilee CommentAtenolol Chlorhexadine Bath Givennot applicable Pain Scales and Managementyes Additional Information: Information Review: Allergies, Home Meds and Significant Events have been Reviewed and Verified with Patient/Familyyes Electronic Signatures: Mindy Kim (DREAD) (Signed 31-Aug-2021 10:17) Authored: Initial Info, General Health, Health Mgmt, Relationship/Environ, Pre-op Checklist, Additional Information Randi Denny) (Signed 28-Aug-2021 15:14) Authored: Initial Info, General Health, Tobacco Use Last Updated: 31-Aug-2021 10:17 by Mindy Kim (RN) Normal [facility] Established Visit (Otolaryng ology)on 08-10-2021 Established Visit (Otolaryngology) Provider Impressions 65 yo woman with a small left oroantral fistula, recurrent infections reviewed CT sinus - there is some loss of bone in the area of concern, inferior mucosal thickening, os is widely patent, there is a retention cyst near the os but not obstructing; right side small inferior maxillary sinus retention cyst -discussed that we could close this with a limited debridement and buccal fat flap; her natural os is patent but she does have some thickening inferiorly and a retention cyst, might benefit from opening the max as well -consent obtained, OR planning for [place] Chief Complaint oroantral fistula History of Present Cgmtixk80 yo woman who presents for evaluation of a 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 Had a small hole that never closed. Periodically will have pus draining out of there and through the nose. Some food/water will also leak out the nose at time. Had ct scan showing some bone loss. Saw Dr. Toney/trung and was referred here. 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) Past Medical History History of multiple sclerosis (340) (G35) Allergies codeine Recorded By: Belia Van; 07/27/2021 9:37:49 AM Lotrel CAPS Recorded By: Belia Van; 07/27/2021 9:37:49 AM Adhesive Tape Recorded By: Belia Van; 07/27/2021 9:37:49 AM Latex Recorded By: Belia Van; 07/27/2021 9:37:49 AM Current Meds Medication NameInstruction Advil 200 MG Oral Tablet Amantadine HCl - 100 MG Oral CapsuleTAKE 1 CAPSULE BY MOUTH TWICE DAILY FOR 30 DAYS Amitriptyline HCl - 100 MG Oral Tablet Amoxicillin-Pot Clavulanate 875-125 MG Oral TabletTAKE 1 TABLET BY MOUTH EVERY 12 HOURS WITH MEALS Atenolol 50 MG Oral Tablet Azithromycin 250 MG Oral Tablet Baclofen 10 MG Oral Tablet Betamethasone Dipropionate 0.05 % External Cream Bumetanide TABS Cephalexin 500 MG Oral CapsuleTAKE 1 CAPSULE BY MOUTH THREE TIMES DAILY Clindamycin HCl - 150 MG Oral CapsuleTAKE 1 CAPSULE BY MOUTH 4 TIMES DAILY UNTIL GONE Cyanocobalamin 1000 MCG/ML Injection SolutionINJECT 1 ML ONCE EVERY MONTH Doxycycline Hyclate 100 MG Oral CapsuleTAKE ONE CAPSULE BY MOUTH TWICE A DAY HYDROcodone-Acetaminophen 5-325 MG Oral Tablet Multi-Vitamin Oral Tablet PriLOSEC OTC 20 MG Oral Tablet Delayed Release Probiotic CAPS tiZANidine HCl - 4 MG Oral TabletTAKE 1/2 TO 1 (ONE-HALF TO ONE) TABLET BY MOUTH NEEDED ONCE DAILY traMADol HCl - 50 MG Oral Tablet Vitals Vital Signs Recorded: 10Aug2021 12:34PM Height5 ft 4 in Badpvi512 lb 1 oz BMI Iofdbrvydq85.63 kg/m2 BSA Calculated2.06 Tobacco Useb) No Fall Screeninga) No falls within the last year Physical Exam CONSTITUTIONAL: Vitals stable as reviewed in nursing chart, appears well developed, well nourished RESPIRATION: Breathing comfortably on room air, no stridor CV: No clubbing/cyanosis/edema in hands EYES: EOM Intact, sclera normal NEURO: Alert and oriented times 3, Cranial nerves 2-12 intact and symmetric bilaterally HEAD AND FACE: Skin with no masses or lesions, sinuses nontender to palpation SALIVARY GLANDS: Parotid and submandibular glands normal bilaterally EARS: Normal external ears, external auditory canals, and TMs to otoscopy, normal hearing to whispered voice NOSE: External nose midline, anterior rhinoscopy is normal with limited visualization to the anterior aspect of the interior turbinates, no lesions noted ORAL CAVITY/OROPHARYNX/LIPS: small 3 mm oroantral fistula posterior left alveolus, no drainage NECK/LYMPH: No LAD, no thyroid masses 'Scores and Scales' Signatures Electronically signed by : Blanca Worrell MD; Aug 10 2021 1:16PM EST (Author) Normal [employer] Tobacco Screening.on 022 Fall risk assessment a) No falls within the last year [facility] Work Phone: Tobacco use status CP b) No 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 Please feel free to contact my office by calling [phone] with any questions. Provider Impressions 1. Left oral antral fistula 2. Rhinorrhea 3. Nasal airway obstruction 4. Facial pressure; migraine history 5. Decree sense of smell 6. Throat clearing, coughing, dysphonia 7. Heartburn on proton pump inhibitor 8. Multiple sclerosis Discussion: Maria Luisa presents with an oral antral fistula. We discussed the mechanism by which this leads to recurrent sinus infections. I will coordinate an assessment with either Dr. Barboza or Dr. Worrell at [facility] as soon as possible as the sooner this is closed the last antibiotic course that she will require. We discussed different types of closure and expected postoperative recovery. I think it would be a very good idea to consider targeted sinus surgery at the time of closure to be able to washout the maxillary sinus but I defer to my head and neck partner on whether or not they also feel this is indicated. I recommended follow-up with me as needed moving forward. She was amenable to this and all questions were answered. Chief Complaint Oral antral fistula History of Present Illness Reason for visit: MARIA LUISA KITCHEN presents to the Otol[facility]ology Clinic in consultation at the request of Dr. Andrzej Toney for oral antral fistula. The symptoms are The antibiotics have included 2 rounds of keflex, 2 rounds of clindamycin, 1 z-pack, 1 round of Augmentin. Main Symptoms: Patient has anterior nasal drainage. when eating/drinking. Patient has posterior nasal drainage. with eating/drinking. Patient has nasal airway obstruction. L > R. Patient does not have facial pain. Patient has facial pressure. over left maxillary cheek. Patient has decreased sense of smell. Associated Symptoms: Patient does not have headaches. Patient has throat clearing. Patient has coughing. Patient has dysphonia. more hypernasal. Patient does not have sneezing. Patient does not have itchy eyes. Patient has nasal bleeding. intermittent right sided epistaxis, self-resolving. Medications currently on for sinonasal symptoms None. Other Pertinent Medical Conditions: Patient does not have asthma. Patient does not have aspirin sensitivity. Patient has migraines. Patient has been seen by Neurology. Patient has not had allergy testing. Patient does not have history of sinus surgery. Patient has not had a nasal fracture. Patient has heartburn. The patient takes medical therapy for heartburn. Prilosec. The patient has not had a GI evaluation. Maria Luisa presents in consultation through Dr. Toney for left-sided oral antral fistula. In December she developed a toothache and ultimately had dental extractions from her left maxilla. After 2 weeks, they noted a small hole at the level of the extraction site. There was concern for some retained root tips and she underwent an additional procedure and unfortunately the fistula continued to enlarge. She has been treated with multiple courses of oral antibiotic therapy as outlined above. She will get benefit with the antibiotic but her symptoms quickly recur. She was evaluated by Dr. Toney who recommended that she see Dr. Barboza as her oral surgeon did not have come for closing this but she was scheduled with me today. She denies significant facial discomfort but is bothered by the nasal drainage. Whenever she eats or drinks often the food or liquid will come out of her nose. PMH: Osteoporosis (on alendronate weekly), MS (has had prior high dose steroids), neuropathy, HTN PSH: dental extractions, no other surgeries Allergies: codeine, Lotrel, adhesives, latex Social: non smoker (prior, quit 2008, 1 PPD x 30 years), social EtOH Family history: Noncontributory to otolaryngology concerns Review of Systems The remainder of a full 10 systems review of systems was byrne negative outside of that stated in the history of present illness. Past Medical History History of multiple sclerosis (340) (G35) Allergies codeine Recorded By: Belia Van; 07/27/2021 9:37:49 AM Lotrel CAPS Recorded By: Belia Van; 07/27/2021 9:37:49 AM Adhesive Tape Recorded By: Belia Van; 07/27/2021 9:37:49 AM Latex Recorded By: Belia Van; 07/27/2021 9:37:49 AM Current Meds Medication NameInstruction Advil 200 MG Oral Tablet Amitriptyline HCl - 100 MG Oral Tablet Atenolol 50 MG Oral Tablet Baclofen 10 MG Oral Tablet Betamethasone Dipropionate 0.05 % External Cream Bumetanide TABS Multi-Vitamin Oral Tablet PriLOSEC OTC 20 MG Oral Tablet Delayed Release Probiotic CAPS traMADol HCl - 50 MG Oral Tablet Vitals Vital Signs Recorded: 27Jul2021 09:35AM Fbmqrfrmbky01.3 F Height5 ft 4.5 in Frdrhg429 lb 3.2 oz BMI Tfxonsnliv19.06 kg/m2 BSA Calculated2.07 Tob (more content not included)... Normal [facility] Tobacco Screening.on 022 Fall risk assessment b) One or more fall s in the last year [facility] Work Phone: Tobacco use status [facility] b) No [employer] Work Phone: Basic Metabolic Panelon 11-14 Anion gap [Moles/Vol] 8 Normal [facility] Comment on above: Performed By: #### H EMDF, TROPN, MG3, BMP3 #### [facility] [address], [place] Calcium [Mass/Vol] 9.3 mg/dL Normal 8.4-10.4 [facility] Comment on above: Performed By: #### H EMDF, TROPN, MG3, BMP3 #### [facility] [address], [place] CO2 [Moles/Vol] 25 mmol/L Normal 22-30 [facility] Comment on above: Performed By: #### H EMDF, TROPN, MG3, BMP3 #### [facility] [address] [place] [address] Glucose [Mass/Vol] 164 mg/dL High 70-100 [facility] Comment on above: Performed By: #### H EMDF, TROPN, MG3, BMP3 #### [facility] [address], [place] Urea nitrogen [Mass/Vol] 21 mg/dL High 7-20 [facility] Comment on above: Performed By: #### H EMDF, TROPN, MG3, BMP3 #### [facility] [address], [place] Creatinine [Mass/Vol] 0.70 mg/dL Normal 0.52-1.25 [facility] Comment on above: Performed By: #### H EMDF, TROPN, MG3, BMP3 #### [place] [address] [place] [address] GFR/1.73 sq M predicted among blacks MDRD (S/P/Bld) [Vol rate/Area] mL/min/{1.73_m2} Normal >60 [facility] Comment on above: Performed By: #### H EMDF, TROPN, MG3, BMP3 #### [address] [place] [address] GFR/1.73 sq M predicted among non-blacks MDRD (S/P/Bld) [Vol rate/Area] mL/min/{1.73_m2} Normal >60 [facility] Comment on above: Result Comment: Sour ce- MDRD equation with creatinine calibration to IDMS(NKDEP) eGFR not recommended for drug dose adjustment Performed By: #### H EMDF, TROPN, MG3, BMP3 #### [address] [place] [address] Chloride [Moles/Vol] 107 mmol/L Normal 98-107 [facility] Comment on above: Performed By: #### H EMDF, TROPN, MG3, BMP3 #### [address] [place] [address] Potassium [Moles/Vol] 3.6 mmol/L Normal 3.5-5.1 [facility] Comment on above: Performed By: #### H EMDF, TROPN, MG3, BMP3 #### [address] [place] [address] Sodium [Moles/Vol] 140 mmol/L Normal 135-145 [facility] Comment on above: Performed By: #### H EMDF, TROPN, MG3, BMP3 #### [address] [place] [address] CR Chest PA/LATon 12-08-2018 CR Chest PA/LAT Patient Name: MARIA LUISA CARY Diagnostic Radiology Exam Date/Time 12/08/2018 14:13:59 EDT Exam CR Chest PA/LAT Ordering Physician JEFFERYHARRY CHU Accession Number [id number] CPT4 Codes 47047 () Reason For Exam cp Report Chest: PA and lateral 12/08/2018. Clinical Information: Dyspnea. Findings: PA and lateral views of the chest reveal the trachea, heart and mediastinal structures to be unremarkable. No focal areas of consolidation or volume loss are seen. There are no pleural effusions. The pulmonary vasculature does not appear congested. The visualized bony structures are intact. Note is made the study is somewhat limited due to patient body habitus. No prior studies for comparison. Impression: No acute process. Report Dictated on Final Dictated: 12/08/2018 2:19 pm Dictating Physician: MD REDDY RISA Signed Date and Time: 12/08/2018 2:20 pm Signed by: MD REDDY RISA Transcribed Date and Time: 12/08/2018 2:19 Normal [facility] Hemogram w/ Autodiffon 12-08 Abs Baso Cnt 0.0 10*3/uL Normal 0.0-0.2 [facility] Comment on above: Performed By: #### H EMDF, TROPN, MG3, BMP3 #### [facility] [address] [place] [address] Abs Neutrophile Cnt 9.8 10*3/uL High 1.8-7.0 [facility] Comment on above: Performed By: #### H EMDF, TROPN, MG3, BMP3 #### [facility] [address] [place] [address] Basophils/100 WBC (Bld) 0.3 % Normal 0.0-2.0 [facility] Comment on above: Performed By: #### H EMDF, TROPN, MG3, BMP3 #### [facility] [address] [place] [address] Eosinophils (Bld) [#/Vol] 0.0 10*3/uL Normal 0.0-0.5 [facility] Comment on above: Performed By: #### H EMDF, TROPN, MG3, BMP3 #### [address] [place], [place] Eosinophils/100 WBC (Bld) 0.1 % Low 1.0-6.0 [facility] Comment on above: Performed By: #### H EMDF, TROPN, MG3, BMP3 #### [address], [place] Erythrocyte distribution width (RBC) [Ratio] 14.5 % Normal 11.5-14.5 [facility] Comment on above: Performed By: #### H EMDF, TROPN, MG3, BMP3 #### [address] Granulocytes/100 WBC (Bld) 94.3 % High 40.0-80.0 [facility] Comment on above: Performed By: #### H EMDF, TROPN, MG3, BMP3 #### [address], [place] Hematocrit (Bld) [Volume fraction] 37.1 % Normal 35.0-47.0 [facility] Comment on above: Performed By: #### H EMDF, TROPN, MG3, BMP3 #### [address] Hemoglobin (Bld) [Mass/Vol] 13.0 g/dL Normal 11.7-16.0 [facility] Comment on above: Performed By: #### H EMDF, TROPN, MG3, BMP3 #### [address] [place], [place] Lymphocytes (Bld) [#/Vol] 0.2 10*3/uL Low 1.0-4.3 [facility] Comment on above: Performed By: #### H EMDF, TROPN, MG3, BMP3 #### [address] Lymphocytes/100 WBC (Bld) 1.9 % Low 20.0-40.0 [facility] Comment on above: Performed By: #### H EMDF, TROPN, MG3, BMP3 #### [address] [place], [place] MCH (RBC) [Entitic mass] 32.8 pg Normal 26.0-34.0 [facility] Comment on above: Performed By: #### H EMDF, TROPN, MG3, BMP3 #### [address] [place], [place] MCHC (RBC) [Mass/Vol] 35.0 % Normal 32.0-36.0 [facility] Comment on above: Performed By: #### H EMDF, TROPN, MG3, BMP3 #### [address] [place], [place] MCV (RBC) [Entitic vol] 93.6 fL Normal 79.0-98.0 [facility] Comment on above: Performed By: #### H EMDF, TROPN, MG3, BMP3 #### [address] [place], [place] Monocytes (Bld) [#/Vol] 0.4 10*3/uL Normal 0.0-0.8 [facility] Comment on above: Performed By: #### H EMDF, TROPN, MG3, BMP3 #### [address] [place], [place] Monocytes/100 WBC (Bld) 3.4 % Normal 2.0-10.0 [facility] Comment on above: Performed By: #### H EMDF, TROPN, MG3, BMP3 #### [address] [place], [place] Platelet mean volume (Bld) [Entitic vol] 9.5 fL Normal 7.4-10.4 [facility] Comment on above: Performed By: #### H EMDF, TROPN, MG3, BMP3 #### [address] [place], [place] Platelets (Bld) [#/Vol] 153 10*3/uL Normal 140-440 [facility] Comment on above: Performed By: #### H EMDF, TROPN, MG3, BMP3 #### [address] [place], [place] RBC (Bld) [#/Vol] 3.97 10*6/uL Normal 3.80-5.20 [facility] Comment on above: Performed By: #### H EMDF, TROPN, MG3, BMP3 #### [address] WBC (Bld) [#/Vol] 10.4 10*3/uL Normal 3.6-10.7 [facility] Comment on above: Performed By: #### H EMDF, TROPN, MG3, BMP3 #### [address] Magnesiumon 12-08-2018 Magnesium [Mass/Vol] 1.8 mg/dL Normal 1.6-2.3 [facility] Comment on above: Performed By: #### H EMDF, TROPN, MG3, BMP3 #### [address] Troponin Ion 12-08-2018 Troponin I.cardiac [Mass/Vol] ng/mL Normal 0.000-0.[address] [place] [address] Comment on above: Result Comment: < 0. 034 = negative 0.034 ? 0.120 = indeterminate > 0.120 = positive Performed By: #### T ROPN #### [address] Troponin I.cardiac [Mass/Vol] ng/mL Normal 0.000-0.03 4 [facility] Comment on above: Result Comment: < 0. 034 = negative 0.034 ? 0.120 = indeterminate > 0.120 = positive Performed By: #### H EMDF, TROPN, MG3, BMP3 #### [address] Vital Signs Date Time Vital Sign Value Performing Clinician Patti bautista 10-07-2024 21:35-0400 Body temperature 98 [degF] Dr. Walt La DO Work Phone: [facility] 10-07-2024 21:35-0400 Diastolic blood pressure 60 mm[Hg] Dr. Walt La DO Work Phone: [facility] 10-07-2024 21:35-0400 Heart rate 71 /min Dr. Walt La DO Work Phone: [facility] 10-07-2024 21:35-0400 Respiratory rate 18 /min Dr. Walt La DO Work Phone: [facility] 10-07-2024 21:35-0400 SaO2% (BldA) [Mass fraction] 97 % Dr. Walt La DO Work Phone: [facility] 10-07-2024 21:35-0400 Systolic blood pressure 152 mm[Hg] Dr. Walt La DO Work Phone: [facility] 10-07-2024 20:34-0400 Body mass index (BMI) [Ratio] 39.1 kg/m2 Dr. Walt La DO Work Phone: [facility] 10-07-2024 20:34-0400 Body weight [address] Walt La DO Work Phone: [facility] 10-07-2024 15:59-0400 Body height 162.[address] Walt La DO Work Phone: [facility] 10-06-2024 23:00-0400 Body temperature 98.5 [degF] Dr. Walt La DO Work Phone: [facility] 10-06-2024 23:00-0400 Diastolic blood pressure 54 mm[Hg] Dr. Walt La DO Work Phone: [facility] 10-06-2024 23:00-0400 Heart rate 70 /min Dr. Walt La DO Work Phone: [facility] 10-06-2024 23:00-0400 Respiratory rate 16 /min Dr. Walt La DO Work Phone: [facility] 10-06-2024 23:00-0400 SaO2% (BldA) [Mass fraction] 97 % Dr. Walt La DO Work Phone: [facility] 10-06-2024 23:00-0400 Systolic blood pressure 134 mm[Hg] Dr. Walt La DO Work Phone: [facility] 10-06-2024 21:21-0400 Body mass index (BMI) [Ratio] 39 kg/m2 Dr. Walt La DO Work Phone: [facility] 10-06-2024 21:21-0400 Body weight 103.[address] Walt La DO Work Phone: [facility] 11-24-2022 12:54-0400 Body temperature 96.3 [degF] Dr. Walt La Work Phone: [facility] 11-24-2022 12:54-0400 Diastolic blood pressure 69 mm[Hg] Dr. Walt La Work Phone: [facility] 11-24-2022 12:54-0400 Heart rate 57 /min Dr. Walt La Work Phone: [facility] 11-24-2022 12:54-0400 Respiratory rate 16 /min Dr. Walt La Work Phone: [facility] 11-24-2022 12:54-0400 SaO2% (BldA) [Mass fraction] 97 % Dr. Walt La Work Phone: [facility] 11-24-2022 12:54-0400 Systolic blood pressure 131 mm[Hg] Dr. Walt La Work Phone: [facility] 11-23-2022 11:00-0400 Body mass index (BMI) [Ratio] 38.5 kg/m2 Dr. Walt La Work Phone: [facility] 11-23-2022 11:00-0400 Body weight 102.[address] Walt La Work Phone: [facility] 11-17-2022 14:49-0400 Body height 162.[address] Walt La Work Phone: [facility] 11-12-2022 07:54-0400 Body temperature 97.4 [degF] Dr. Walt La Work Phone: [facility] 11-12-2022 07:54-0400 Diastolic blood pressure 41 mm[Hg] Dr. Walt La Work Phone: [facility] 11-12-2022 07:54-0400 Heart rate 59 /min Dr. Walt La Work Phone: [facility] 11-12-2022 07:54-0400 Respiratory rate 16 /min Dr. Walt La Work Phone: [facility] 11-12-2022 07:54-0400 SaO2% (BldA) [Mass fraction] 95 % Dr. Walt La Work Phone: [facility] 11-12-2022 07:54-0400 Systolic blood pressure 103 mm[Hg] Dr. Walt La Work Phone: [facility] 11-05-2022 06:00-0400 Body mass index (BMI) [Ratio] 38.2 kg/m2 Dr. Walt La Work Phone: [facility] 11-05-2022 06:00-0400 Body weight 100.[address] Walt La Work Phone: [facility] 11-04-2022 11:18-0400 Body height 162.[address] Walt La Work Phone: [facility] 10-28-2022 12:29-0400 Body temperature 98.1 [degF] Dr. Walt La Work Phone: [facility] 10-28-2022 12:29-0400 Diastolic blood pressure 56 mm[Hg] Dr. Walt La Work Phone: [facility] 10-28-2022 12:29-0400 Heart rate 74 /min Dr. Walt La Work Phone: [facility] 10-28-2022 12:29-0400 Respiratory rate 18 /min Dr. Walt La Work Phone: [facility] 10-28-2022 12:29-0400 SaO2% (BldA) [Mass fraction] 97 % Dr. Walt La Work Phone: [facility] 10-28-2022 12:29-0400 Systolic blood pressure 121 mm[Hg] Dr. Walt La Work Phone: [facility] 10-25-2022 13:18-0400 Body height 162.[address] Walt La Work Phone: [facility] 10-25-2022 13:18-0400 Body weight 99.[address] Walt La Work Phone: [facility] 10-25-2022 09:51-0400 Body mass index (BMI) [Ratio] 37.6 kg/m2 Dr. Walt La Work Phone: [facility] 03-24-2022 10:01-0500 Body temperature 97.8 [degF] Dr. Walt La Work Phone: [facility] 03-24-2022 10:01-0500 Diastolic blood pressure 80 mm[Hg] Dr. Walt La Work Phone: [facility] 03-24-2022 10:01-0500 Heart rate 67 /min Dr. Walt La Work Phone: [facility] 03-24-2022 10:01-0500 Respiratory rate 16 /min Dr. Walt La Work Phone: [facility] 03-24-2022 10:01-0500 SaO2% (BldA) [Mass fraction] 96 % Dr. Walt La Work Phone: [facility] 03-24-2022 10:01-0500 Systolic blood pressure 159 mm[Hg] Dr. Walt La Work Phone: [facility] 03-24-2022 08:44-0500 Body height 162.[address] Walt La Work Phone: [facility] 03-24-2022 08:44-0500 Body mass index (BMI) [Ratio] 38.2 kg/m2 Dr. Walt La Work Phone: [facility] 03-24-2022 08:44-0500 Body weight [address] Walt La Work Phone: [facility] 03-01-2022 14:49-0400 Body height 162.[address] Walt La Work Phone: [facility] Work Phone: 03-01-2022 14:49-0400 Body mass index (BMI) [Ratio] 38.7 kg/m2 Dr. Walt La Work Phone: [facility] 03-01-2022 14:49-0400 Body temperature 97 [degF] Dr. Walt La Work Phone: [facility] 03-01-2022 14:49-0400 Body weight 102.[address] Walt La Work Phone: [facility] 03-01-2022 14:49-0400 Diastolic blood pressure 61 mm[Hg] Dr. Walt La Work Phone: [facility] 03-01-2022 14:49-0400 Heart rate 76 /min Dr. Walt La Work Phone: [facility] 03-01-2022 14:49-0400 Respiratory rate 17 /min Dr. Walt La Work Phone: [facility] 03-01-2022 14:49-0400 SaO2% (BldA) [Mass fraction] 96 % Dr. Walt La Work Phone: [facility] 03-01-2022 14:49-0400 Systolic blood pressure 129 mm[Hg] Dr. Walt La Work Phone: [facility] 10-13-2021 15:55-0400 Body height 163.83 cm Walt Yeungman Work Phone: [facility] [place] [address] [place] Work Phone: 10-13-2021 15:55-0400 Body mass index (BMI) [Ratio] 38.19 kg/m2 Walt Yeungman Work Phone: [facility] [place] [address] [place] Work Phone: 10-13-2021 15:55-0400 Body surface area Derived from formula 2.07 m2 Walt Yeungman Work Phone: [facility] [place] [address] [place] Work Phone: 10-13-2021 15:55-0400 Body temperature 98.3 [degF] Walt La Work Phone: [facility] [place] [address] [place] Work Phone: 10-13-2021 15:55-0400 Body weight 102.51 kg Walt Yeungman Work Phone: [facility] [place] [address] [place] Work Phone: 10-13-2021 15:55-0400 Diastolic blood pressure 74 mm[Hg] Walt Yeungman Work Phone: [facility] [place] [address] [place] Work Phone: 10-13-2021 15:55-0400 Heart rate 80 /min Walt Parry [place] Work Phone: [facility] [place] [address] [place] Work Phone: 10-13-2021 15:55-0400 Respiratory rate 16 /min Walt [employer] Work Phone: [facility] [place] [address] [place] Work Phone: 10-13-2021 15:55-0400 SaO2% (BldA) [Mass fraction] 93 % Walt Parry [place] Work Phone: [facility] [place] [address] [place] Work Phone: 10-13-2021 15:55-0400 Systolic blood pressure 131 mm[Hg] Walt Parry [place] Work Phone: [facility] [place] [address] [place] Work Phone: 09-08-2021 13:51-0400 Body height 163.83 cm Walt Parry [place] Work Phone: [facility] [place] [address] [place] Work Phone: 09-08-2021 13:51-0400 Body mass index (BMI) [Ratio] 37.28 kg/m2 Walt Parry [place] Phone: [facility] [place] [address] [place] Work Phone: 09-08-2021 13:51-0400 Body surface area Derived from formula 2.05 m2 Walt Parry [place] Phone: [facility] [place] [address] [place] Work Phone: 09-08-2021 13:51-0400 Body temperature 97.3 [degF] Walt Parry [place] Work Phone: [facility] [place] [address] [place] Work Phone: 04-26-2022 13:51-0400 Body weight 100.06 kg Walt Parry [place] Work Phone: -[facility] [place] [address] [place] Work Phone: 09-08-2021 13:51-0400 Heart rate 63 /min Walt Parry [place] Work Phone: [facility] [place] [address] [place] Work Phone: 09-08-2021 13:51-0400 Respiratory rate 16 /min Walt Parry [place] Work Phone: [facility] [place] [address] [place] Work Phone: 09-08-2021 13:51-0400 SaO2% (BldA) [Mass fraction] 100 % Walt Parry [facility] Work Phone: -[facility] [place] [address] [place] Work Phone: 08-10-2021 12:34-0400 Body height 162.56 cm Walt Parry [facility] Phone: [facility] Work Phone: 08-10-2021 12:34-0400 Body mass index (BMI) [Ratio] 38.63 kg/m2 Walt Parry [facility] Work Phone: [facility] Work Phone: 08-10-2021 12:34-0400 Body surface area Derived from formula 2.06 m2 Walt Parry [facility] Work Phone: [facility] [address] Work Phone: 08-10-2021 12:34-0400 Body weight 102.09 kg Walt Parry [facility] Work Phone: [facility] [address] Work Phone: 07-27-2021 09:35-0400 Body height 163.83 cm Walt La Work Phone: [facility] [employer] Work Phone: 07-27-2021 09:35-0400 Body mass index (BMI) [Ratio] 38.06 kg/m2 Walt La Work Phone: [facility] Work Phone: 07-27-2021 09:35-0400 Body surface area Derived from formula 2.07 m2 Walt La Work Phone: [facility] [employer] Work Phone: 07-27-2021 09:35-0400 Body temperature 97.3 [degF] Walt La Work Phone: [facility] [employer] Work Phone: 07-27-2021 09:35-0400 Body weight 102.15 kg Walt La Work Phone: [facility] [employer] Work Phone: Encounters Encounter Date Encounter Type Care Provider Facility Start: 02-05-2025 End: 02-05-[address] Walt La DO Work Phone: [facility] Start: 02-05-2025 End: 02-05-2025 Patient encounter procedure VARUN SHAH [employer] Work Phone: Start: 02-05-2025 End: 02-05-2025 ambulatory Walt La Facility:[facility] Start: 10-07-2024 End: 10-07-2024 Emergency department patient visit Dr. Walt La DO Work Phone: -Emergency Department Work Phone: Start: 10-06-2024 End: 10-06-2024 Emergency department patient visit Dr. Walt La DO Work Phone: -Emergency Department Work Phone: Start: 08-20-2024 Non-patient / Non-visit Dr. Doron stone MD -[facility] Start: 08-20-2024 End: 08-20-[address] Walt La DO Work Phone: [facility] Work Phone: Start: 08-20-2024 End: 08-20-[address] Walt La DO -[facility] Work Phone: Start: 08-20-2024 End: 08-20-2024 ambulatory Walt La Facility:[facility] Start: 08-14-2024 End: 08-14-[address] Walt La DO Work Phone: [facility] Work Phone: Start: 08-14-2024 End: 08-14-2024 Patient encounter procedure VARUN RAHMAN -[facility] Work Phone: Start: 08-14-2024 End: 08-14-2024 ambulatory Walt La Facility:[facility] Start: 05-10-2024 End: 05-10-[address] Walt La DO -Outpatient Breast Imaging Work Phone: Start: 05-10-2024 End: 05-10-2024 ambulatory Walt La Facility:[facility] Start: 05-02-2024 End: 05-02-2024 Patient encounter procedure VARUN RAHMAN [facility] Work Phone: Start: 05-02-2024 End: 05-02-2024 ambulatory VARUN SHAH Facility:[facility] Start: 04-17-2024 ambulatory Walt La Facility: [facility] Start: 09-19-2023 End: 09-19-2023 ambulatory [facility] Work Phone: Start: 09-19-2023 End: 09-19-2023 Patient encounter procedure [facility] [place] Work Phone: Start: 08-04-2023 End: 08-04-2023 ambulatory [facility] Work Phone: Start: 08-04-2023 End: 08-04-2023 Patient encounter procedure [facility] [place] Work Phone: Start: 04-29-2023 End: 04-29-2023 Patient encounter procedure [facility] Work Phone: Start: 12-16-2022 End: 12-16-[address] Walt La Work Phone: [facility] Work Phone: Start: 12-16-2022 End: 12-16-[address] Walt La Work Phone: [facility] [place] Work Phone: Start: 11-13-2022 Non-patient / Non-visit Dr. Gilma La Work Phone: [facility] Work Phone: Start: 11-12-2022 End: 11-24-2022 Evaluation and management of inpatient Dr. Walt La Work Phone: [facility] Start: 11-12-2022 Non-patient / Non-visit Dr. Gilma La Work Phone: [facility] Work Phone: Start: 11-11-2022 Non-patient / Non-visit Dr. Gilma La Work Phone: [facility] Work Phone: Start: 11-09-2022 Non-patient / Non-visit Dr. Gilma La Work Phone: [facility] Work Phone: Start: 11-08-2022 Non-patient / Non-visit Dr. Gilma La Work Phone: [facility] Work Phone: Start: 11-05-2022 Non-patient / Non-visit Dr. Gilma La Work Phone: [facility] Work Phone: Start: 11-03-2022 Non-patient / Non-visit Dr. Gilma La Work Phone: [facility] Work Phone: Start: 11-01-2022 Non-patient / Non-visit Dr. Gilma La Work Phone: [facility] Work Phone: Start: 10-31-2022 Non-patient / Non-visit Dr. Gilma La Work Phone: [facility] Work Phone: Start: 10-29-2022 Non-patient / Non-visit Dr. Gilma La Work Phone: [facility] Work Phone: Start: 10-28-2022 End: 11-12-2022 Evaluation and management of inpatient Dr. Walt La Work Phone: [facility] Work Phone: Start: 10-28-2022 Non-patient / Non-visit Dr. Gilma La Work Phone: [facility] Work Phone: Start: 10-27-2022 Non-patient / Non-visit Dr. Gilma La Work Phone: [facility] Work Phone: Start: 10-26-2022 Non-patient / Non-visit Dr. Gilma La Work Phone: [facility] Start: 10-25-2022 End: 10-25-2022 Non-patient / Non-visit Dr. Walt La Work Phone: [facility] Work Phone: Start: 10-25-2022 Non-patient / Non-visit Dr. Gilma La Work Phone: [facility] Start: 10-25-2022 End: 10-28-2022 Evaluation and management of inpatient Dr. Walt La Work Phone: [facility] 3 Start: 08-12-2022 Non-patient / Non-visit Dr. Gilma La Work Phone: [facility] Start: 08-12-2022 End: 08-12-[address] Walt La Work Phone: [facility] Work Phone: Start: 08-12-2022 End: 08-12-[address] Walt La Work Phone: [facility] Start: 06-18-2022 End: 06-18-[address] Walt La Work Phone: [facility] Work Phone: Start: 06-18-2022 End: 06-18-[address] Walt La Work Phone: [facility] Start: 05-03-2022 End: 05-03-[address] Walt La Work Phone: [facility] Work Phone: Start: 05-03-2022 End: 05-03-[address] [facility] Start: 04-05-2022 End: 04-05-[address] Walt La Work Phone: [facility] Start: 03-24-2022 Non-patient / Non-visit Dr. Gilma La Work Phone: [facility] Start: 03-24-2022 End: 03-24-2022 Admission to same day surgery center Dr. Walt La Work Phone: [facility] Start: 03-24-2022 End: 03-24-[address] Walt La Work Phone: [facility] Work Phone: Start: 03-17-2022 End: 03-17-[address] Walt La Work Phone: [facility] Work Phone: Start: 03-17-2022 End: 03-17-[address] Walt La Work Phone: [facility] Start: 03-03-2022 End: 03-03-[address] Walt La Work Phone: [facility] Work Phone: Start: 03-03-2022 End: 03-03-[address] Walt La Work Phone: [facility] Start: 03-01-2022 End: 03-01-[address] Walt La Work Phone: [facility] Start: 10-14-2021 End: 10-14-2021 Patient encounter procedure [facility] Start: 10-13-2021 Postop follow up vis it related to original px Walt La Work Phone: [facility]-Utnhwkmmxdwkzp-Qpqd a [address] [place] Work Phone: Start: 10-13-[address] Blanca Worrell Facility:[id number] Start: 10-06-[address] Blanca Worrell Facility:[id number] Start: 09-11-2021 Chart Update Walt Ontiveros n Work Phone: [facility]Isoxpvgqcial[facility] Work Phone: Start: 09-08-2021 Current tobacco non- user cad cap copd pv dm Walt Brinda Bessie Work Phone: [facility]-Mwkuuxvflurbby-Tosz a [address] [place] Work Phone: Start: 09-08-[address] Walt La Facility:[id number] Start: 08-31-2021 End: 08-31-[address] Walt La Facility:[id number] Start: 08-31-2021 SURGC, Provider: Blanca Worrell, Status: Brent, Time: 8:00 AM Walt La Work Phone: IK-Icwcpknpyiviub-Tieg man Work Phone: Start: 08-30-2021 Chart Update Walt Ontiveros n Work Phone: NL-Laesyjarboyjhs-Psds man Work Phone: Start: 08-10-2021 Office outpatient vi sit 25 minutes Walt La Work Phone: [facility] Work Phone: Start: 08-10-2021 ambulatory Boo Nino Facility:[id number] Start: 07-27-2021 Office consultation new/estab patient 40 min Walt Brinda YeungBessie Work Phone: [facility]Sktbvrhfzqwuzh[facility] [place] Work Phone: Start: 07-27-[address] Walt La Facility:[id number] Start: 07-26-2017 Ambulatory JAN LEWIS Facil ty:H1 Procedures Date Procedure Procedure Detail Performing Clinician Start: 10-07-2024 Computed tomography of thoracic spine without contrast Dr. Walt La DO Work Phone: Start: 10-07-2024 CT cervical spine wi thout contrast Dr. Walt La DO Work Phone: Start: 10-07-2024 CT of head without contrast Dr. Walt La DO Work Phone: Start: 10-06-[address] Walt La DO Work Phone: Start: 05-10-2024 Screening mammography Carly La DO Work Phone: Start: 05-10-2024 Dual energy X-ray absorptiometry Dr. Walt La DO Work Phone: Start: 05-02-2024 MRI of brain with contrast Dr. Walt La DO Work Phone: Start: 05-02-2024 MRI of thoracic spin e with contrast Dr. Walt La DO Work Phone: Start: 12-16-[address] Walt La Work Phone: Start: 12-16-2022 Investigation of transfusion reaction Dr. Walt La Work Phone: Start: 12-16-2022 Microbial culture, routine Dr. Walt La Work Phone: Start: 11-18-[address] Macie La Work Phone: Start: 11-08-[address] Macie La Work Phone: Start: 11-08-[address] Walt La Work Phone: Start: 11-01-[address] Walt La Work Phone: Start: 10-29-[address] Walt La Work Phone: Start: 10-29-2022 Investigation of transfusion reaction Dr. Walt La Work Phone: Start: 10-29-2022 Microbial culture, routine Dr. Walt La Work Phone: Start: 10-25-2022 Fluoroscopic guidance Carly La Work Phone: Start: 10-25-[address] Macie La Work Phone: Start: 10-25-2022 Open reduction with internal fixation Dr. Walt La Work Phone: Start: 10-24-[address] Macie La Work Phone: Start: 03-24-[address] Walt rene Work Phone: Start: 03-17-2022 X-ray of both feet Dr. Walt La Work Phone: Plan of Treatment Date Care Activity Detail Author Start: 10-07-2024 [facility] Start: 10-06-2024 [facility] Start: 11-26-2022 Development of care plan [facility] Start: 11-26-2022 Patient discharge [facility] Start: 11-19-2022 [facility] Start: 11-18-2022 Referral to service [facility] Start: 11-18-2022 Referral to vice president media relations [facility] Start: 11-15-2022 Wound care [facility] Start: 11-13-2022 Development of care plan [facility] Start: 11-13-2022 Developing a treatment plan [facility] Start: 11-13-2022 [facility] Start: 11-12-2022 Admission procedure [facility] Start: 11-12-2022 Measuring intake and output [facility] Start: 11-12-2022 [facility] Start: 11-12-2022 Referral to occupati onal therapist [facility] Start: 11-12-2022 Referral to service [facility] Start: 11-12-2022 Vital signs measurements [facility] Start: 11-12-2022 End: 11-12-2022 [facility] Start: 11-12-2022 Patient discharge [facility] Start: [facility]-12-2022 [facility] Start: 11-10-2022 Wound care [facility] Start: 11-09-2022 Measuring intake and output [facility] Start: 11-01-2022 [facility] Start: 11-01-2022 Introduction of urin juvencio catheter [facility] Start: 10-29-2022 Speech therapy assessment [facility] Start: 10-29-2022 Factor V Leiden genotype [facility] Start: 10-29-2022 Antithrombin III ass ay, functional [facility] Start: 10-28-2022 Following clinical p athway protocol [facility] Start: 10-28-2022 [facility] Start: 10-28-2022 Urinary bladder training [facility] Start: 10-28-2022 Referral to service [facility] Start: 10-28-2022 Admission procedure [facility] Start: 10-28-2022 Patient referral to [facility] Start: 10-28-2022 Vital signs measurements [facility] Start: 10-28-2022 End: 10-28-2022 [facility] Start: 10-28-2022 Referral to occupati onal therapist [facility] Start: 10-28-2022 Patient discharge [facility] Start: 10-26-2022 Referral to occupati onal therapist [facility] Start: 10-25-2022 Referral to service [facility] Start: 10-25-2022 [facility] Start: 10-25-2022 [facility] Start: 10-25-2022 Referral to service [facility] Start: 10-25-2022 Application of inter mittent pneumatic compression device [facility] Start: 10-25-2022 Following clinical p athway protocol [facility] Start: 10-25-2022 Assessment of risk o f venous thromboembolism [facility] Start: 10-25-2022 Insertion of cathete r into peripheral vein [facility] Start: 10-25-2022 Oxygen therapy [facility] Start: 10-25-2022 Providing care accor ding to standard [facility] Start: 10-25-2022 Referral to vice president media relations [facility] Start: 10-25-2022 Referral to service [facility] Start: 10-25-2022 [facility] Start: 10-25-2022 Admission procedure [facility] Start: 10-25-2022 Patient referral to dietitian [facility] Start: 03-24-2022 Egd transoral biopsy single/multiple EGD BIOPSY SINGLE/MULTIPLE [facility] Start: 03-24-2022 Patient discharge [facility] Start: 10-06-2021 FUV, Provider: Calin Worrell, Status: Pen, Time: 2:15 PM FUV, Provider: Blanca Worrell, Status: Pen, Time: 2:15 PM ZN-Agngfwqnroufoy-Ocq ma [address] [place] Work Phone: Start: 08-10-2021 FUV, Provider: Calin Worrell, Status: Pen, Time: 12:30 PM [facility]ohbx[facility] [place] Work Phone: Antithrombin III ass ay, functional [facility] Beta 2 glycoprotein 1 IgA Ab [Presence] in Serum [facility] Beta 2 glycoprotein 1 IgG Ab [Presence] in Serum [facility] Beta 2 glycoprotein 1 IgM Ab [Presence] in Serum [facility] Cardiolipin IgG Ab [Units/volume] in Serum or Plasma [facility] Cardiolipin IgM Ab [Units/volume] in Serum or Plasma [facility] Colonoscopy [facility] Work Phone: Colonoscopy [facility] F5 gene mutations fo und [Identifier] in Blood or Tissue by Molecular genetics method [facility] IgA [Mass/volume] in Serum or Plasma [facility] IgE [Units/volume] i n Serum or Plasma [facility] IgG [Mass/volume] in Serum or Plasma [facility] IgM [Mass/volume] in Serum or Plasma [facility] Patient Education [facility] Work Phone: Patient referral [facility] Work Phone: Protein C Ag actual/ normal in Platelet poor plasma by Immunoassay [facility] Targeted analysis fo r gene mutation [facility] Immunizations Immunization Date Immunization Notes Care Provider Fa [facility] 05-16-2019 influenza, injectabl e, quadrivalent, preservative free [facility] 05-16-2019 influenza, seasonal, injectable [facility] Payers Date Payer Category Payer Self-pay [id number] 2023 Medicare [id number] 2023 Private Health Insurance [facility] [id number] 2014 Medicare [id number] 2011 Unknown [id number] 2011 Unknown [id number] 1959 Unknown [id number] 1955 Unknown [id number] 2.16. [id number] 1955 Unknown [id number] 2.16. [id number] 1955 Unknown [id number] 2.16.8 [id number] 1955 Unknown [id number] 2.16.8 [id number] 1955 Unknown [id number] 2.16.8 [id number] 1955 Unknown [id number] 2.16.8 [id number] Medicare [id number] Medicare [id number] Unknown Unknown [id number] 2.16.8 [id number] Unknown [id number] 2.16.8 [id number] Unknown [id number] 2.16.8 [id number] Unknown [id number] 2.16.8 [id number] Unknown [id number] 2.16.8 [id number] Unknown [id number] 2.16.8 [id number] Unknown [id number] 2.16.8 [id number] Unknown [id number] 2.16.8 [id number] Unknown [id number] 2.16.8 [id number] Social History Date Type Detail Facility Start: 12-12-2020 End: 11-12-2022 Tobacco smoking status VAIS Unknown if ever smoked [facility] Start: 05-14-2019 None [facility] Start: 05-14-2019 With Family [facility] Start: 09-05-2018 Cigarettes [facility] Start: 1955 Sex Assigned At Female [facility] Start: 11-12-2022 End: 10-07-2024 Tobacco smoking status NHIS Ex-smoker (finding) [facility] Start: 08-18-2024 End: 08-23-2024 Sex Female (finding) [facility] Sex Female [facility] NEGATED: Highlighted row [facility] Medical Equipment Procedure Code Equipment Code Equipment Origin al Text Equipment Identifier Dates ORIF, ankle 3.5MM LOCKING SCREW FDA Star t: 10-25-2022 ORIF, ankle ASNIS 4.0MM PARTIALLY SCREW FDA Start: 10-25-2022 ORIF, ankle DISTAL LATERAL FIBULA PLATE FDA Start: 10-25-2022 ORIF, ankle 3.5MM NONLOCKING FDA Start: 10-25-2022 ORIF, ankle 3.5MM NONLOCKING FDA Start: 10-25-2022 ORIF, ankle 3.5MM NONLOCKING FDA Start: 10-25-2022 ORIF, ankle 3.5MM NONLOCKING FDA Start: 10-25-2022 ORIF, ankle 3.5MM NONLOCKING FDA Start: 10-25-2022 ORIF, ankle 3.5MM NONLOCKING FDA Start: 10-25-2022 ORIF, ankle 3.5MM NONLOCKING SCREW FDA Start: 10-25-2022 ORIF, ankle ASNIS 4.0MM PARTIALLY SCREW FDA Start: 10-25-2022 ORIF, ankle 3.5MM LOCKING SCREW FDA Star t: 10-25-2022 ORIF, ankle ASNIS 4.0MM PARTIALLY SCREW FDA Start: 10-25-2022 ORIF, ankle DISTAL LATERAL FIBULA PLATE FDA Start: 10-25-2022 ORIF, ankle 3.5MM NONLOCKING FDA Start: 10-25-2022 ORIF, ankle 3.5MM NONLOCKING FDA Start: 10-25-2022 ORIF, ankle 3.5MM NONLOCKING FDA Start: 10-25-2022 ORIF, ankle 3.5MM NONLOCKING FDA Start: 10-25-2022 ORIF, ankle 3.5MM NONLOCKING FDA Start: 10-25-2022 ORIF, ankle 3.5MM NONLOCKING FDA Start: 10-25-2022 ORIF, ankle 3.5MM NONLOCKING SCREW FDA Start: 10-25-2022 ORIF, ankle ASNIS 4.0MM PARTIALLY SCREW FDA Start: 10-25-2022 ORIF, ankle 3.5MM LOCKING SCREW FDA Star t: 10-25-2022 ORIF, ankle ASNIS 4.0MM PARTIALLY SCREW FDA Start: 10-25-2022 ORIF, ankle DISTAL LATERAL FIBULA PLATE FDA Start: 10-25-2022 ORIF, ankle 3.5MM NONLOCKING FDA Start: 10-25-2022 ORIF, ankle 3.5MM NONLOCKING FDA Start: 10-25-2022 ORIF, ankle 3.5MM NONLOCKING FDA Start: 10-25-2022 ORIF, ankle 3.5MM NONLOCKING FDA Start: 10-25-2022 ORIF, ankle 3.5MM NONLOCKING FDA Start: 10-25-2022 ORIF, ankle 3.5MM NONLOCKING FDA Start: 10-25-2022 ORIF, ankle 3.5MM NONLOCKING SCREW FDA Start: 10-25-2022 ORIF, ankle ASNIS 4.0MM PARTIALLY SCREW FDA Start: 10-25-2022 ORIF, ankle 3.5MM LOCKING SCREW FDA Star t: 10-25-2022 ORIF, ankle ASNIS 4.0MM PARTIALLY SCREW FDA Start: 10-25-2022 ORIF, ankle DISTAL LATERAL FIBULA PLATE FDA Start: 10-25-2022 ORIF, ankle 3.5MM NONLOCKING FDA Start: 10-25-2022 ORIF, ankle 3.5MM NONLOCKING FDA Start: 10-25-2022 ORIF, ankle 3.5MM NONLOCKING FDA Start: 10-25-2022 ORIF, ankle 3.5MM NONLOCKING FDA Start: 10-25-2022 ORIF, ankle 3.5MM NONLOCKING FDA Start: 10-25-2022 ORIF, ankle 3.5MM NONLOCKING FDA Start: 10-25-2022 ORIF, ankle 3.5MM NONLOCKING SCREW FDA Start: 10-25-2022 ORIF, ankle ASNIS 4.0MM PARTIALLY SCREW FDA Start: 10-25-2022 ORIF, ankle 3.5MM LOCKING SCREW FDA Star t: 10-25-2022 ORIF, ankle ASNIS 4.0MM PARTIALLY SCREW FDA Start: 10-25-2022 ORIF, ankle DISTAL LATERAL FIBULA PLATE FDA Start: 10-25-2022 ORIF, ankle 3.5MM NONLOCKING FDA Start: 10-25-2022 ORIF, ankle 3.5MM NONLOCKING FDA Start: 10-25-2022 ORIF, ankle 3.5MM NONLOCKING FDA Start: 10-25-2022 ORIF, ankle 3.5MM NONLOCKING FDA Start: 10-25-2022 ORIF, ankle 3.5MM NONLOCKING FDA Start: 10-25-2022 ORIF, ankle 3.5MM NONLOCKING FDA Start: 10-25-2022 ORIF, ankle 3.5MM NONLOCKING SCREW FDA Start: 10-25-2022 ORIF, ankle ASNIS 4.0MM PARTIALLY SCREW FDA Start: 10-25-2022 ORIF, ankle 3.5MM LOCKING SCREW FDA Star t: 10-25-2022 ORIF, ankle ASNIS 4.0MM PARTIALLY SCREW FDA Start: 10-25-2022 ORIF, ankle DISTAL LATERAL FIBULA PLATE FDA Start: 10-25-2022 ORIF, ankle 3.5MM NONLOCKING FDA Start: 10-25-2022 ORIF, ankle 3.5MM NONLOCKING FDA Start: 10-25-2022 ORIF, ankle 3.5MM NONLOCKING FDA Start: 10-25-2022 ORIF, ankle 3.5MM NONLOCKING FDA Start: 10-25-2022 ORIF, ankle 3.5MM NONLOCKING FDA Start: 10-25-2022 ORIF, ankle 3.5MM NONLOCKING FDA Start: 10-25-2022 ORIF, ankle 3.5MM NONLOCKING SCREW FDA Start: 10-25-2022 ORIF, ankle ASNIS 4.0MM PARTIALLY SCREW FDA Start: 10-25-2022 ORIF, ankle 3.5MM LOCKING SCREW FDA Star t: 10-25-2022 ORIF, ankle ASNIS 4.0MM PARTIALLY SCREW FDA Start: 10-25-2022 ORIF, ankle DISTAL LATERAL FIBULA PLATE FDA Start: 10-25-2022 ORIF, ankle 3.5MM NONLOCKING FDA Start: 10-25-2022 ORIF, ankle 3.5MM NONLOCKING FDA Start: 10-25-2022 ORIF, ankle 3.5MM NONLOCKING FDA Start: 10-25-2022 ORIF, ankle 3.5MM NONLOCKING FDA Start: 10-25-2022 ORIF, ankle 3.5MM NONLOCKING FDA Start: 10-25-2022 ORIF, ankle 3.5MM NONLOCKING FDA Start: 10-25-2022 ORIF, ankle 3.5MM NONLOCKING SCREW FDA Start: 10-25-2022 ORIF, ankle ASNIS 4.0MM PARTIALLY SCREW FDA Start: 10-25-2022 ORIF, ankle 3.5MM LOCKING SCREW FDA Star t: 10-25-2022 ORIF, ankle ASNIS 4.0MM PARTIALLY SCREW FDA Start: 10-25-2022 ORIF, ankle DISTAL LATERAL FIBULA PLATE FDA Start: 10-25-2022 ORIF, ankle 3.5MM NONLOCKING FDA Start: 10-25-2022 ORIF, ankle 3.5MM NONLOCKING FDA Start: 10-25-2022 ORIF, ankle 3.5MM NONLOCKING FDA Start: 10-25-2022 ORIF, ankle 3.5MM NONLOCKING FDA Start: 10-25-2022 ORIF, ankle 3.5MM NONLOCKING FDA Start: 10-25-2022 ORIF, ankle 3.5MM NONLOCKING FDA Start: 10-25-2022 ORIF, ankle 3.5MM NONLOCKING SCREW FDA Start: 10-25-2022 ORIF, ankle ASNIS 4.0MM PARTIALLY SCREW FDA Start: 10-25-2022 ORIF, ankle 3.5MM LOCKING SCREW FDA Star t: 10-25-2022 ORIF, ankle ASNIS 4.0MM PARTIALLY SCREW FDA Start: 10-25-2022 ORIF, ankle DISTAL LATERAL FIBULA PLATE FDA Start: 10-25-2022 ORIF, ankle 3.5MM NONLOCKING FDA Start: 10-25-2022 ORIF, ankle 3.5MM NONLOCKING FDA Start: 10-25-2022 ORIF, ankle 3.5MM NONLOCKING FDA Start: 10-25-2022 ORIF, ankle 3.5MM NONLOCKING FDA Start: 10-25-2022 ORIF, ankle 3.5MM NONLOCKING FDA Start: 10-25-2022 ORIF, ankle 3.5MM NONLOCKING FDA Start: 10-25-2022 ORIF, ankle 3.5MM NONLOCKING SCREW FDA Start: 10-25-2022 ORIF, ankle ASNIS 4.0MM PARTIALLY SCREW FDA Start: 10-25-2022 Goals Date Patient Goal Desired Activity /State Functional Status Date Assessment Result Facility 11-24-2022 Functional status Activity Ability Indepe ndent [facility] Work Phone: 11-23-2022 Functional status Patient Activity Up ad elías [facility] Work Phone: 11-22-2022 Functional status Assistive Devices Wheel chair [facility] Work Phone: 11-12-2022 Functional status Activity Abili ty With Assist of 1;With Assist of 2 [facility] Work Phone: 11-11-2022 Functional status Patient Activity Ambula carina [facility] Work Phone: 10-28-2022 Functional status Patient Activity Bedres t [facility] Work Phone: 10-27-2022 Functional status With Assist of 2 [facility] Work Phone: Mental Status Date Assessment Result Facility 10-07-2024 Cognitive function Level Of Cons ciousness Awake;Alert;Appropriate;Follow s Commands [facility] Work Phone: 10-06-2024 Cognitive function Voice/Name [facility] Work Phone: 11-24-2022 Cognitive function Voice/Name [facility] Work Phone: 11-23-2022 Cognitive function Appropriate;Cooperativ e [facility] Work Phone: 11-12-2022 Cognitive function Voice/Name [facility] Work Phone: 10-28-2022 Cognitive function Voice/Name [facility] Work Phone: 03-24-2022 Cognitive function Voice/Name [facility] Work Phone: Clinical Notes 08-31-2021 to 10-07-2024 Note Date & Type Note Facility 10-07-2024 Radiology Diagnostic study note [facility] Imaging Services [address] [place] [address] Spine Thoracic without Contras MR#: [id number] Acct: [id number] Name: MARIA LUISA VILLALOBOS Rep #: [id number] : 1955 F From: Kristen Davis MD PCP: Dr. Walt La DO Status: REG ER Study:Spine Thoracic without Contras Date of Exam: 10/07/24 Exam# [id number] Ordering Dr: Landon Pedraza DO PROCEDURE: SPINE THORACIC WITHOUT CONTRAS REASON FOR EXAM: PAIN TECHNIQUE: Thoracic spine CT without contrast. Coronal and Sagittal reconstruction series were provided. One or more dose reduction techniques were used (e.g., Automated exposure control, adjustment of the mA and/or kV according to patient size, use of iterative reconstruction technique). RADIATION DOSE SUMMARY: See CT head for discussion of radiation dosages. COMPARISON: None. FINDINGS: Alignment: No traumatic listhesis. Bones: Normal thoracic vertebral heights. No acute fracture. Mild multilevel degenerative disc disease. No suspicious lytic or blastic lesion. Soft Tissues: No soft tissue hematoma. Other: Emphysema and scattered areas of scarring. Calcific plaque of the coronary arteries, thoracic and abdominal aorta. CT/Spine Thoracic without Contras IMPRESSION: NO ACUTE THORACIC FRACTURE. DEGENERATIVE CHANGES. Reading Location: [facility] CC: Dr. Walt La DO; Dr. Landon Pedraza DO ~ Char Conveyor Tender: Signed [facility] 10-07-2024 Radiology Diagnostic study note [facility] Imaging Services [address] [place] [id number] Spine Cervical without Contras MR#: [id number] Acct: [id number] Name: MARIA LUISA VILLALOBOS Rep #: [id number] : 1955 F 68 From: Kristen Davis MD PCP: Dr. Walt La DO Status: REG ER Study:Spine Cervical without Contras Date of Exam: 10/07/24 Exam# [id number] Ordering Dr: Landon Pedraza DO PROCEDURE: SPINE CERVICAL WITHOUT CONTRAS 10/07/2024 REASON FOR EXAM: NECK PAIN TECHNIQUE: Cervical spine CT without contrast. Coronal and Sagittal reconstruction series were provided. One or more dose reduction techniques were used (e.g., Automated exposure control, adjustment of the mA and/or kV according to patient size, use of iterative reconstruction technique RADIATION DOSE SUMMARY: See CT head for radiation values. COMPARISON: None. FINDINGS: Alignment: No traumatic listhesis. There is straightening of the normal cervical lordosis. Vertebrae: No acute fracture. Mild multilevel vertebral body height loss. Mildmultilevel degenerative disc disease. Soft Tissues: No prevertebral hematoma. CT/Spine Cervical without Contras IMPRESSION: NO ACUTE CERVICAL FRACTURE. DEGENERATIVE CHANGES. Reading Location: [facility] CC: Dr. Walt La DO; Dr. Landon Pedraza DO ~ Char Conveyor Tender: Signed [facility] 10-07-2024 Radiology Diagnostic study note [facility] Imaging Services [address] [place], [place] [id number] Brain/Head without Contrast MR#: [id number] Acct: [id number] Name: MARIA LUISA VILLALOBOS Rep #: [id number] : 1955 F 68 From: Kristen Davis MD PCP: Dr. Walt La DO Status: REG ER Study:Brain/Head without Contrast Date of Exa m: 10/07/24 Exam# [id number] Ordering Dr: Landon Pedraza DO EXAM: BRAIN/HEAD WITHOUT CONTRAST CLINICAL HISTORY: 68 y/o F with HEADACHE. COMPARISON: None. TECHNIQUE: Routine CT imaging of the head without IV contrast. Additional multiplanar reformats were obtained. Dose reduction techniques were used including intermediate exposure control (AEC),iterative reconstruction technique, and/or mA and/or KV dose adjustments based on patient's size. FINDINGS: The ventricles and subarachnoid spaces are normal for patient age. Mild patchy supratentorial white matter hypodensities. Tiny lacunar type infarct within the right caudate head. No acute intracranial hemorrhage or herniation. The basal cisterns are patent. Prior ocular lens replacements. Retention cyst or polyp within the right maxillary sinus. Prior left FESS. The mastoids are unremarkable. No acute calvarial fracture or scalp hematoma. CT/Brain/Head without Contrast IMPRESSION: No acute intracranial finding. Reading Location: [facility] CC: Dr. Walt La DO; Dr. Landon Pedraza DO ~ Char Conveyor Tender: Signed [facility] 11-12-2022 Discharge summary Note Date/Time November 12, 2022 11:13am [facility] Medical Records Department [address] [place] [address] Discharge Summary 11/12/22 1111 MR#: [id number] Acct: [id number] Name: MARIA LUISA VILLALOBOS Rep #:[id number] : 1955 66 From: Sosa Alcala DO PCP: Dr. Walt La DO Status:ADM IN Location: [place] [address] Providers Date of Admission: 10/28/22 Date of Discharge: 11/12/22 Primary Care Physician: DO Dr. 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 Code(s): L88 - Pyoderma gangrenosum (6) Acute blood loss anemia: Status: Acute Code(s): D62 - Acute posthemorrhagic anemia (7) Peripheral neuropathy: Status: Chronic (8) Foot drop, left: Status: Acute Code(s): M21.372 - Foot drop, left foot (9) Osteopenia: Status: Acute Code(s): M85.80 - Other specified disorders of bone density and structure, unspecified site Qualifiers: Osteopenia location: multiple sites Qualified Code(s): M85.89 - Other specified disorders of bone density and structure, multiple sites (10) Hypovolemia dehydration: Status: Acute Code(s): E86.1 - Hypovolemia (11) Acid reflux: Status: Acute Code(s): K21.9 - Gastro-esophageal reflux disease without esophagitis Qualifiers: Esophagitis presence: without esophagitis Qualified Code(s): K21.9 - Gastro-esophageal reflux disease without esophagitis (12) HTN (hypertension): Status: Chronic Code(s): I10 - Essential (primary) hypertension Qualifiers: Hypertension type: primary hypertension Qualified Code(s): I10 - Essential (primary) hypertension Plan Transfer to TCU today for continued therapy. Medications at Discharge Home Medications amitriptyline 100 mg tablet 100 mg PO QHS DEPRESSION 08/04/14 atenolol 50 mg tablet 50 mg PO DAILY BLOOD PRESSURE 08/04/14 atenolol 50 mg tablet 75 mg PO QHS BLOOD PRESSURE 08/04/14 baclofen 20 mg tablet 30 mg PO Q8 MS 08/04/14 cholecalciferol (vitamin D3) 1,250 mcg (50,000 unit) capsule 50,000 unit PO TUTHSupplement 08/04/14 cyanocobalamin (vitamin B-12) 1,000 mcg/mL injection solution 100 mcg IM Q30D SUPPLEMENT 08/04/14 ibuprofen 200 mg tablet 400 mg PO DAILY PAIN 08/04/14 tramadol 50 mg tablet 50 mg PO Q6H PRN PRN Pain 1-10 09/03/18 amantadine HCl 100 mg capsule 100 mg PO BID SPASMS 09/04/18 clonazepam 0.5 mg tablet (Klonopin) 0.5 mg PO QHS PRN Spasms 10/25/22 pantoprazole 40 mg tablet,delayed release 40 mg PO DAILY STOMACH 10/25/22 potassium chloride 20 mEq tablet,extended release(part/cryst) 20 meq PO DAILY SUPPLEMENT 10/25/22 enoxaparin 40 mg/0.4 mL subcutaneous syringe (Lovenox) 40 mg subcut DAILY@0600 Check with primary doctor 10/28/22 arginine 7 gram-glutam 7 gram-CaHMB 1.5 [id number]-[id number]-min oral pwd pkt (Uriel (with collagen)) 1 packet PO BIDCM #1 ea 11/12/22 bisacodyl 10 mg rectal suppository 10 mg VT .PRN X 1 PRN Constipation #1 ea 11/12/22 bumetanide 2 mg tablet 2 mg PO DAILY #1 TAB 11/12/22 calcitonin (salmon) 200 unit/actuation nasal spray 1 spray NARES DAILY #1 mL 11/12/22 calcium carbonate 200 mg calcium (500 mg) chewable tablet 500 mg (2.5 x 200 mg calcium (500 mg)) PO BIDCM #1 TAB 11/12/22 magnesium hydroxide 400 mg/5 mL oral suspension 30 ml PO .PRN X 1 PRN Constipation #1 mL 11/12/22 menthol 0.44 %-zinc oxide 20.6 % topical ointment (Calmoseptine) 1 applic topical BID #1 g 11/12/22 mupirocin 2 % topical ointment 1 applic topical 0600,2200 #1 g 11/12/22 nystatin 100,000 unit/gram topical powder (Nyamyc) 1 applic topical 0600,2200 #1g 11/12/22 potassium chloride 20 mEq tablet,extended release(part/cryst) (Klor-Con M) 20 meq PO BIDCM #1 TAB 11/12/22 rizatriptan 10 mg tablet 10 mg PO PRN PRN MIGRAINE SYMPTOMS #1 TAB 11/12/22 sennosides 8.6 mg-docusate sodium 50 mg tablet (Stool Softener-Stimulant Laxative) 2 tab PO BID #1 TAB 11/12/22 Hospital Course Operations - (ORIF right ankle fracture on 10/25/[address] Umaña) Procedures None Summary of Care Provided Minutes Spent on Discharge: 45 Hospital Course: MARIA LUISA KITCHEN, is a 66 YO F with a PMH of MS, obesity, HTN, tobacco dependence in remission, GERD, migraines, osteopenia, mild left atrial enlargement, mild MR, internal hemorrhoids and peripheral neuropathy who presented to the ED at [facility] early on 10/25/22 stating she had 3 falls that day andshe was not able to ambulate/bear wt after the last fall. XRAY showed partiallydisplaced bimalleolar right ankle fracture with mild ankle joint space widening/instability. She was admitted to the hospitalist service and podiatry was consulted. She was taken to surgery on 10/25/22 for open reduction internal fixation by Dr. Umaña. Post operatively she was seen by PT/OT and they recommended acute inpt rehab at [facility]. she was transferred to the acute inpt rehabunit at [facility] on 10/28/22 for 3 hours of therapy daily to restore function at or near her level prior to the fracture. When Maria Luisa came to rehab she had several ulcerations on the lateral side of the R proximal thigh. She told me that she frequently gets these ulcerations. They have the appearance of pyoderma gangrenosum. One of the ulcerations had a purulent discharge and this was cultured and grew a methicillin sensitive Staph aureus. She was placed on doxycycline 100 mg p.o. twice daily for 1 week and Bactroban cream twice daily to all the ulcerations. The infection resolved and although the ulcerations are still present they are dried up and no longer enlarging. She should have a biopsy of an ulceration to include the rim and thenormal area adjacent to the rim to confirm the diagnosis. We did not do a biopsy in the hospital because the treatment for pyoderma gangrenosum is high-dose steroids and this would impair healing of the incision and the bone from the right ankle fracture. Maria Luisa has been seen by a lumber planer in the past and I suggested she follow-up with dermatology for a biopsy when a new lesion appears. Maria Luisa was quite impaired at presentation because she was NWB on the RLE and her left leg is always weak secondary to MS. She was limited to a WC. She was able to transfer to the toilet and on and off the bed with a sliding board, she did not have a sliding board at home. At the time of transfer to TCU she isquite proficient at using the sliding board, mala using a high low bed. Her leftleg is getting stronger and she is able to stand and pivot at the time of transfer. She has stood in the parallel bars and been able to maintain partial weight bearing on the RLE. At the time of transfer she is allowed to stand and pivot if there are 2 nurse's/NA's to assist but, she is NOT to ambulate with anyone except PT until further notice. We have asked her dtr to bring Maria Luisa's scooter to the hospital so we can start doing transfers from the scooter onto various surfaces. Maria Luisa is known to have osteopenia and her last BMD test was 2 years ago. She has been taking vitamin D at home but, she has not been taking calcium and she is not on a medication to stimulate bone formation. She told me that she has tried a bisphosphonate in the past and did not tolerate it. I did not want to use Evista due to the increase risk of VTE. She was started on Miacalcin andis tolerating this well. I would recommend repeating the BMD following DC home. Maria Luisa was discharged to TCU on 11/12/22 for strengthening in order that shecan go home and safely remain partial wt bearing on the RLE until it heals. removed the daphney on 11/10/22 and the incision is intact with no estee-incisional erythema, no dehiscence and no discharge. She was placed in a boot on 11/10/2022 and is 25 to 50% weightbearing on the right lower extremity with the restrictions listed above. She will [facility] with Dr. La her PCP. Physical Exam Const alert, oriented x3 and no apparent distress General Appearance: cooperative, well kempt and well developed HEENT normocephalic, head/scalp atraumatic, hearing grossly normal bilaterally and moist oral mucous membranes Eyes PERRL, EOMs intact bilaterally, conjunctivae normal and no scleral icterus Neck supple, No nodes and no carotid bruits General: trachea midline Resp normal respiratory effort, normal air movement, no use of accessory muscles and clear to auscultation bilaterally Resp Narrative: Not tachypneic. Effort and Inspection: able to speak in complete sentences Cardio regular rate, regular rhythm, no murmurs, no rub and no gallops Cardio Narrative: No ectopy GI normal to inspection, nondistended, normoactive bowel sounds, soft to palpation,non-tender, non-distended and no masses GI Narrative: No guarding with palpation Extremity no calf tenderness Extremity Narrative: intact sensation to the R foot. The toes are warm. General Extremity: Negative for edema Skin General Skin Exam: no breakdown Rashes: no rashes Wound Narrative: Ulcerations on the R lateral thigh are drying up and there is no longer any DC/slough over the wound the culture was taken from. There is some redness aroundthe wounds but, no increased warmth to touch. Neuro oriented x3 and CN's II-XII intact bilaterally Neuro Narrative: Decreased sensation in both distal LE's. The left leg is very weak chronically but, strength has improved with therapy. She still has foot drop on the left. She has good strength in the arms. No facial asymmetry. No visual loss. Can not flex the Left knee. She is able to move abduct and adduct the left leg on the bed. Coordination / Balance: avampl-fq-wzlb test normal Psych mental status grossly normal, thought process normal, cooperative, affect normal, denies homicidal ideation and denies suicidal ideation Appearance: grossly normal, appropriate and well kempt Attitude: calm Weight / BMI Weight Weight: 222 lb 7.143 oz Body Mass Index (BMI) 38.2 ABG / Lab / Microbiology Data 11/12/22 05:52 11/12/22 05:52 Laboratory: Laboratory Results - last 24 hr 11/12/22 05:52: Hgb 10.5 L, Hct 32.4 L, Sodium 142, Potassium 3.9, Chloride 111 H, Carbon Dioxide 28.0, Anion Gap 3 L, BUN 34 H, Creatinine 0.91, Estim Creat Clear Calc 53.22, Est GFR (MDRD) Af Amer 79, Est GFR (MDRD) Non-Af 65, BUN/Creatinine Ratio 37.2 H, Glucose 83, Calcium 8.8 Microbiology: Microbiology 11/01/22 14:00 Urine, Catheterized Urine Culture - Final Strep salivarius sp salivarius Streptococcus mitis/ oralis 10/29/22 17:50 Wound - Leg, Right Gram Stain - Final 10/29/22 17:50 Wound - Leg, Right Wound Culture - Final Staphylococcus aureus D/C Instructions Please Follow Up With: Juan Manuel Umaña DPM Meaningful Use Info Meaningful Use Diagnoses (Choose all that apply): None applicable Discharge Plan Admission Admit Date/Time: 10/28/22 14:59 Primary Reason for Your Visit: Physical debility due to R ankle fx with ORIF andgen. weakness due to MS Attending Provider: Sosa Alcala Primary Care Provider: Walt La Instructions Additional Instructions / Restrictions: 1. She should be on Artificial saliva 15 ml 5 X's a day PRN. 2. NO ambulating except with PT until further notice. She can stand and pivot if 2 nurses or nurse and aid are available to assist. 3. Hold Bumex 11/13, 11/14 and restart once daily on 11/15/22. Discharge Orders/Prescriptions Prescriptions: New bumetanide 2 mg Tablet 2 mg PO DAILY Qty: 1 0RF rizatriptan 10 mg Tablet 10 mg PO PRN PRN (Reason: MIGRAINE SYMPTOMS) Qty: 1 0RF sennosides-docusate sodium [Stool Softener-Stimulant Laxat] 8.6-50 mg Tablet 2 tab PO BID Qty: 1 0RF potassium chloride [Klor-Con M20] 20 mEq Tablet,Er Particles/Crystals 20 meq PO BIDCM Qty: 1 0RF magnesium hydroxide 400 mg/5 mL Suspension 30 ml PO .PRN X 1 PRN (Reason: Constipation) Qty: 1 0RF calcitonin (salmon) 200 unit/actuation [place],Non-Aerosol 1 spray NARES DAILY Qty: 1 0RF bisacodyl 10 mg Suppository 10 mg VT .PRN X 1 PRN (Reason: Constipation) Qty: 1 0RF calcium carbonate 200 mg calcium (500 mg) Tablet,Chewable 500 mg PO BIDCM Qty: 1 0RF mupirocin 2 % Ointment 1 applic topical 0600,2200 Qty: 1 0RF Protocol: *Topical Application Instructions APPLICATION INSTRUCTIONS: Please apply to the wounds on the right lateral upper thigh twice daily. nystatin [Nyamyc] 100,000 unit/gram Powder 1 applic topical 0600,2200 Qty: 1 0RF Protocol: *Topical Application Instructions APPLICATION INSTRUCTIONS: groin and abdomen folds menthol-zinc oxide [Calmoseptine] 0.44-20.6 % Ointment 1 applic topical BID Qty: 1 0RF Protocol: *Topical Application Instructions APPLICATION INSTRUCTIONS: buttocks Uriel (with collagen) 7-7-1.5 gram Powder In Packet 1 packet PO BIDCM Qty: 1 0RF Continued baclofen 20 MG tablet 30 mg PO Q8 cyanocobalamin (vitamin B-12) 1,000 MCG/ML solution 100 mcg IM Q30D ibuprofen 200 MG tablet 400 mg PO DAILY amitriptyline 100 MG tablet 100 mg PO QHS atenolol 50 MG tablet 75 mg PO QHS atenolol 50 MG tablet 50 mg PO DAILY cholecalciferol (vitamin D3) 50,000 UNIT capsule 50,000 unit PO TUTH tramadol 50 MG tablet 50 mg PO Q6H PRN PRN (Reason: Pain 1-10) amantadine HCl 100 MG capsule 100 mg PO BID pantoprazole 40 mg tablet,delayed release (DR/EC) 40 mg PO DAILY clonazepam [Klonopin] 0.5 mg Tablet 0.5 mg PO QHS PRN (Reason: Spasms) enoxaparin [Lovenox] 40 mg/0.4 mL syringe 40 mg subcut DAILY@0600 Discontinued sumatriptan succinate [Imitrex] 50 mg tablet 50 mg PO ONCE PRN (Reason: migraine headache) bumetanide 2 MG tablet 2 mg PO BID No Action potassium chloride 20 MEQ tablet,ER particles/crystals 20 meq PO DAILY Referrals / Follow Up: Dr. Townsend [Other] - 11/17/22 2:20 pm Juan Manuel Umaña DPM [Med Staff - Active Staff] - Walt La DO [Primary Care Provider] - Disposition Disposition (needs filled in before D/C Order can be placed): Custodial Facility Charges/Coding Visit Charges Inpatient E&M: 42866 Disch Hosp >30min 11/12/22 1512 <Electronically signed by Sosa Alcala DO> Cosigner Signature (if applicable): CC: TAMMIE Umaña; Dr. Walt La DO; Dr. Sosa Alcala DO~ Signed [facility] Work Phone: [phone]) 180-433106-30-2023 Discharge summary Author Sosa Alcala [facility] November 12, 2022 11:10am Note Date/Time November 12, 2022 10:0 1am [facility] Medical Records Department [address] [place] [address] [facility] MR#: [id number] Acct: [id number] Name: MARIA LUISA VILLALOBOS Rep #:[id number] : 1955 66 From: Sosa Alcala DO PCP: Dr. Walt La DO Status:ADM IN Certification of patient admission REQUIRED AT TIME OF ADMISSION. I CERTIFY THAT POST-HOSPITAL ECF SERVICES ARE REQUIRED TO BE GIVEN ON AN IN-PATIENT BASIS BECAUSE OF THE ABOVE NAMED PATIENT'S NEED FOR SKILLED NURSING CARE ON A CONTINUING BASIS FOR THE CONDITION(S) FOR WHICH HE/SHE WAS RECEIVING IN-PATIENT HOSPITAL SERVICES PRIOR TO HIS/HER TRANSFER TO THE [facility]. 11/12/22 1110<Electronically signed by Sosa Alcala DO> Diet Diet Order/Speech Therapy: 11/10/22 09:38 LOW SALT Diet: Regular - General Food consistency:: Regular Liquid Consistency:: Regular/Thin Is pt able to select menu?: Yes Routine Orders/Code Status Enema Type: Fleetz Enema Frequency: Daily PRN Suppository Type: Dulcolax 10mg Suppository Frequency: Daily PRN O2 Liters per Minute: 1-2 O2 Frequency: PRN Keep PO Greater than or Equal to (%): 90 Routine Lab Work: CBC (11/19/22), BMP (11/19/22) and - ( iron + iron binding capacity and ferritin in the AM. ) Code Status: Full Code Wound(s) Rt Distal Thigh: Wound Type: ulceration (Much improved after a course of antibiotics. Possible Pyoderma Gangrenosum.) Dressing Change: no dressing needed unless draining Left Diamond: Wound Type: Ulceration Left Calf: Wound Type: Ulceration rt ankle: Wound Type: Surgical Incision Dressing Change: Dry Sterile Dressing (does not have to be sterile) Therapies Weight Bearing: Non weight bearing (2 nurses can stand and pivot but, she is only to ambulate with PT. ) Extremity Affected:: Bilateral Lower Physical Therapy: Eval and Treat Occupational Therapy: Eval and Treat Speech Therapy: Eval and Treat Problem/Diagnosis (1) Debility: Status: Acute Code(s): R53.81 - Other malaise Comment: Due to a fall with bimalleolar fx of the R distal tib/fib (2) Bimalleolar avulsion fracture of right ankle: Status: Acute Code(s): S82.841A - Displaced bimalleolar fracture of right lower leg, initial encounter for closed fracture (3) Multiple sclerosis: Status: Acute Code(s): G35 - Multiple sclerosis Comment: SPASMS - USES WALKER (4) History of open reduction and internal fixation (ORIF) procedure: Status: Acute Code(s): Z98.890 - Other specified postprocedural states Comment: By Dr. 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 Deferred at this time because the tx would be steroids and wecan not use steroids at this time because they will delay healing. (6) Acute blood loss anemia: Status: Acute Code(s): D62 - Acute posthemorrhagic anemia (7) Peripheral neuropathy: Status: Chronic (8) Foot drop, left: Status: Acute Code(s): M21.372 - Foot drop, left foot Comment: Left leg has always been her weak leg and now she is NWB on the RLE. No ambulation except when with PT. (9) Osteopenia: Status: Acute Code(s): M85.80 - Other specified disorders of bone density and structure, unspecified site (10) Hypovolemia dehydration: Status: Acute Code(s): E86.1 - Hypovolemia (11) Acid reflux: Status: Acute Code(s): K21.9 - Gastro-esophageal reflux disease without esophagitis (12) HTN (hypertension): Status: Chronic Code(s): I10 - Essential (primary) hypertension Plan Transfer to TCU today for continued therapy. Allergies/Procedures Done in Hospital Allergies adhesive Adverse Reaction (Verified 10/24/22 22:15) RED amlodipine besylate [From Lotrel] Adverse Reaction (Verified 10/24/22 22:15) Nausea benazepril HCl [From Lotrel] Adverse Reaction (Verified 10/24/22 22:15) Nausea codeine Adverse Reaction (Verified 10/24/22 22:15) Nausea latex Adverse Reaction (Verified 10/24/22 22:15) RED Penicillins Adverse Reaction (Verified 10/24/22 22:15) Nausea Procedures: - (ORIF R ankle fx on 10/25/[address] Umaña. ) Type of Care/Length of Stay Estimated LOS: Convalescent Care Less Than 30 days Type of Care Needed: Skilled Rehab Potential: Good Prognosis: Good Additional Orders/Day of Discharge Additional Orders: Pt is able to stand and pivot with TWO nurses but, she is notto ambulate with anyone except the PT until further notice. H&P will serve as current which was dated: 10/29/22 Day of Discharge: 11/12/22 Dietary and Speech Recommendations Dietitian Recommendations/Changes: Continue Regular diet order to promote adequate energy and protein intake. Continue Uriel BID to support wound healing. LOW salt. Follow Up Care Please follow up with your Primary Care Physician in: Following DC from TCU Please Follow Up With: Juan Manuel Umaña DPM When: Will see weekly while in TCU Discharge Plan Admission Admit Date/Time: 10/28/22 14:59 Primary Reason for Your Visit: Physical debility due to R ankle fx with ORIF andgen. weakness due to MS Attending Provider: Sosa Alcala Primary Care Provider: Walt La Instructions Additional Instructions / Restrictions: 1. She should be on Artificial saliva 15 ml 5 X's a day PRN. 2. NO ambulating except with PT until further notice. She can stand and pivot if 2 nurses or nurse and aid are available to assist. 3. Hold Bumex 11/13, 11/14 and restart once daily on 11/15/22. Discharge Orders/Prescriptions Prescriptions: New bumetanide 2 mg Tablet 2 mg PO DAILY Qty: 1 0RF rizatriptan 10 mg Tablet 10 mg PO PRN PRN (Reason: MIGRAINE SYMPTOMS) Qty: 1 0RF sennosides-docusate sodium [Stool Softener-Stimulant Laxat] 8.6-50 mg Tablet 2 tab PO BID Qty: 1 0RF potassium chloride [Klor-Con M20] 20 mEq Tablet,Er Particles/Crystals 20 meq PO BIDCM Qty: 1 0RF magnesium hydroxide 400 mg/5 mL Suspension 30 ml PO .PRN X 1 PRN (Reason: Constipation) Qty: 1 0RF calcitonin (salmon) 200 unit/actuation [place],Non-Aerosol 1 spray NARES DAILY Qty: 1 0RF bisacodyl 10 mg Suppository 10 mg VT .PRN X 1 PRN (Reason: Constipation) Qty: 1 0RF calcium carbonate 200 mg calcium (500 mg) Tablet,Chewable 500 mg PO BIDCM Qty: 1 0RF mupirocin 2 % Ointment 1 applic topical 599,0 Qty: 1 0RF Protocol: *Topical Application Instructions APPLICATION INSTRUCTIONS: Please apply to the wounds on the right lateral upper thigh twice daily. nystatin [Nyamyc] 100,000 unit/gram Powder 1 applic topical 0600,2200 Qty: 1 0RF Protocol: *Topical Application Instructions APPLICATION INSTRUCTIONS: groin and abdomen folds menthol-zinc oxide [Calmoseptine] 0.44-20.6 % Ointment 1 applic topical BID Qty: 1 0RF Protocol: *Topical Application Instructions APPLICATION INSTRUCTIONS: buttocks Uriel (with collagen) 7-7-1.5 gram Powder In Packet 1 packet PO BIDCM Qty: 1 0RF Continued baclofen 20 MG tablet 30 mg PO Q8 cyanocobalamin (vitamin B-12) 1,000 MCG/ML solution 100 mcg IM Q30D ibuprofen 200 MG tablet 400 mg PO DAILY amitriptyline 100 MG tablet 100 mg PO QHS atenolol 50 MG tablet 75 mg PO QHS atenolol 50 MG tablet 50 mg PO DAILY cholecalciferol (vitamin D3) 50,000 UNIT capsule 50,000 unit PO TUTH tramadol 50 MG tablet 50 mg PO Q6H PRN PRN (Reason: Pain 1-10) amantadine HCl 100 MG capsule 100 mg PO BID pantoprazole 40 mg tablet,delayed release (DR/EC) 40 mg PO DAILY clonazepam [Klonopin] 0.5 mg Tablet 0.5 mg PO QHS PRN (Reason: Spasms) enoxaparin [Lovenox] 40 mg/0.4 mL syringe 40 mg subcut DAILY@0600 Discontinued sumatriptan succinate [Imitrex] 50 mg tablet 50 mg PO ONCE PRN (Reason: migraine headache) bumetanide 2 MG tablet 2 mg PO BID No Action potassium chloride 20 MEQ tablet,ER particles/crystals 20 meq PO DAILY Referrals / Follow Up: Dr. Townsend [Other] - 11/17/22 2:20 pm Juan Manuel Umaña DPM [Med Staff - Active Staff] - Walt La DO [Primary Care Provider] - Disposition Disposition (needs filled in before D/C Order can be placed): Custodial Facility (9) Osteopenia Qualifiers: Osteopenia location: multiple sites Qualified Code(s): M85.89 - Other specified disorders of bone density and structure, multiple sites (11) Acid reflux Qualifiers: Esophagitis presence: without esophagitis Qualified Code(s): K21.9 - Gastro-esophageal reflux disease without esophagitis (12) HTN (hypertension) Qualifiers: Hypertension type: primary hypertension Qualified Code(s): I10 - Essential (primary) hypertension 11/12/22 1110 <Electronically signed by Sosa Alcala DO> Cosigner Signature (if applicable): CC: Dr. Walt La DO ~ [facility] Work Phone: [phone] 575-629406-28-2023 Consult note Author Juan Manuel Umaña [facility] November 10, 2022 1:39pm Note Date/Time November 10, 2022 1:36 pm [facility] Medical Records Department [address] [place] [address] Consultation 11/10/22 1331 MR#: [id number] Acct: [id number] Name: MARIA LUISA VILLALOBOS Rep #:[id number] : 1955 66 From: Juan Manuel Umaña DPM PCP: Dr. Walt La DO Status:ADM IN Location: [place] [address] Assessment & Plan Assessment/Plan (1) Bimalleolar avulsion fracture of right ankle: PLAN: Exam performed radiographs reviewed, no loss of correction splint removed, daphney aseptically removed patient can shower, but the dressing should be removed prior and replaced afterwards (adaptic, 4x4s, kerlix, june bandage) Dispensed a cam boot to initiate 25-50% weightbearing assisted by walker continue physical therapy I will follow patient weekly HPI Consult Data Date of Consult: 11/10/22 HPI Narrative HPI Narrative: MARIA LUISA KITCHEN, is a 66 F who was seen bedside 2 weeks after right ankle orif on 10/25/22. Denies pain/constitutionals/chest pain/calf pain or shortness of breath. Patient recovering in rehab and compliant with weightbearing restrictions. [facility] Medical History (Updated 11/10/22 @ 13:[address] Juan Manuel Umaña, DANIELM) Anxiety Bimalleolar fracture of right ankle COVID-19 Difficulty swallowing Exacerbation of multiple sclerosis Former smoker Gastric reflux History of gastric polyp History of GI bleed History of stress test Hypertension Migraine headache Multiple sclerosis Osteopenia Peripheral neuropathy Shortness of breath on exertion Home Medications amitriptyline 100 mg tablet 100 mg PO QHS DEPRESSION 08/04/14 [History Last Taken 09/03/18] atenolol 50 mg tablet 50 mg PO DAILY BLOOD PRESSURE 08/04/14 [History Last Taken 03/24/22] atenolol 50 mg tablet 75 mg PO QHS BLOOD PRESSURE 08/04/14 [History Last Taken 09/03/18] baclofen 20 mg tablet 30 mg PO Q8 MS 08/04/14 [History Last Taken 09/03/18] cholecalciferol (vitamin D3) 1,250 mcg (50,000 unit) capsule 50,000 unit PO TUTHSupplement 08/04/14 [History Last Taken 10/28/22 09:00] cyanocobalamin (vitamin B-12) 1,000 mcg/mL injection solution 100 mcg IM Q30D SUPPLEMENT 08/04/14 [History Last Taken 10/18/22 10:00] ibuprofen 200 mg tablet 400 mg PO DAILY PAIN 08/04/14 [History Last Taken 10/28/22 09:30] tramadol 50 mg tablet 50 mg PO Q6H PRN PRN Pain 1-10 09/03/18 [History Last Taken Unknown] amantadine HCl 100 mg capsule 100 mg PO BID SPASMS 09/04/18 [History Last Taken Unknown] bumetanide 2 mg tablet 2 mg PO BID WATER PILL 09/04/18 [History Last Taken Unknown] sumatriptan succinate 50 mg tablet (Imitrex) 50 mg PO ONCE PRN migraine eptpzihv66/17/22 [History Last Taken Unknown] clonazepam 0.5 mg tablet (Klonopin) 0.5 mg PO QHS PRN Spasms 10/25/22 [History Last Taken Unknown] pantoprazole 40 mg tablet,delayed release 40 mg PO DAILY STOMACH 10/25/22 [History Last Taken Unknown] potassium chloride 20 mEq tablet,extended release(part/cryst) 20 meq PO DAILY SUPPLEMENT 10/25/22 [History Last Taken Unknown] enoxaparin 40 mg/0.4 mL subcutaneous syringe (Lovenox) 40 mg subcut DAILY@0600 Check with primary doctor 10/28/22 [History Last Taken Unknown] Allergy/AdvReac Type Severity Reaction Status Date / Time adhesive AdvReac RED Verified 10/24/22 22:15 amlodipine besylate AdvReac Nausea Verified 10/24/22 22:15 [From Lotrel] benazepril HCl [From Lotrel] AdvReac Nausea Verified 10/24/22 22:15 codeine AdvReac Nausea Verified 10/24/22 22:15 latex AdvReac RED Verified 10/24/22 22:15 Penicillins AdvReac Nausea Verified 10/24/22 22:15 Family History (Updated 10/29/22 @ 16:[address] Sosa Alcala DO) Brother Diabetes Heart disease Kidney disease Cancer Mother Diabetes Hypertension Thyroid disorder VTE (venous thromboembolism) Son VTE (venous thromboembolism) Surgical History (Updated 10/29/22 @ 17:[address] Sosa Alcala DO) History of cataract surgery History of colonoscopy History of hysterectomy History of skin surgery History of surgical procedure on mouth Social History (Updated 10/29/22 @ 16:[address] Sosa Alcala DO) household members: spouse housing: house pets and animals: Yes Smoking Status: Former smoker pack-years: 35 Tobacco: How many years used: 35 how long ago did patient quit smoking: quit smoking in 2008 and started as a teenager. alcohol intake: never substance use type: does not use additional social history: uses ibuprofen daily Physical Exam Const alert and oriented x3 Constitutional Narrative: no signs of DVT (minimal swelling, no pain with calf squeeze) right ankle incisions healed x2 (medial/lateral ankle) - daphney intact - no signs of infection dorsalis pedis/posterior tibial pulses intact Lab / Micro Data 11/09/22 05:18 11/09/22 05:18 11/10/22 1336 <Electronically signed by Juan Manuel Umaña DPM> Cosigner Signature (if applicable): CC: Dr. Walt La, ~ Signed ADDENDUM by DPAlessandro Umaña on 11/10/22 at 1338 Addendum Will proceed with immobilization with a pneumatic CAM Walker. This is indicated to immobilize the foot and ankle, as well as control the edema to the foot and ankle. A pneumatic CAM Walker ([id number]) was fitted and dispensed to the patient onthis date, educated patient on proper use and wear. Proper fit was ensured. Patient to wear with all weightbearing and ambulation to the foot/ankle. Signs/symptoms of DVT / blood clot were discussed and reviewed, and instructionswere given to follow up immediately if present. 11/10/22 1338<Electronically signed by Juan Manuel Umaña DPM> Cosigner Signature (if applicable): cc: Dr. Walt La, DO ~* Signed [facility] Work Phone: [phone]) 443-391706-27-2023 Progress note Author Sosa Alcala [facility] November 09, 2022 2:37pm Note Date/Time November 09, 2022 1:56 pm [facility] Medical Records Department [address] [place] [address] Progress Note 11/09/22 1352 MR#: [id number] Acct: [id number] Name: MARIA LUISA VILLALOBOS Rep #:[id number] : 1955 66 From: Sosa Alcala DO PCP: Dr. Walt La, Status:ADM IN Location: [place] [address] Subjective Subjective Afebrile VSS Maintaining appropriate oxygen saturation on RA Oral intake is good Discussed with nursing - no problems that need addressed Reviewed the PT/OT/ST notes Medication list reviewed. All lab drawn this morning was personally reviewed. White blood cell count is normal at 5.2. Hemoglobin is stable at 11.3. MCV is elevated at 100.3, likely indicating increased reticulocytosis secondary to anemia. Platelets are normal and the differential is unremarkable. BMP is remarkable for an elevated BUN at 39 with a creatinine of 1.08, up from 1.04 on 10/30/2022 and from 0.9 on 10/28/2022. CRP is 4.47, down from 47.5 on 10/30/2022. ESR is 14 today, down from 43 on 10/30/2022. No NOVOA, cough, shortness of breath, chest pain, nausea/vomiting/abdominal pain, dysuria, calf pain or lightheadedness. Denies any more problems with urine retention. Objective Data Objective Data Vital Signs: Vital Signs Temp Pulse Resp BP Pulse Ox O2 Del Method 97.6 F L 60 16 124/48 H 95 Room Air 11/09/22 07:12 11/09/22 07:12 11/09/22 07:12 11/09/22 07:12 11/09/22 07:12 11/09/22 07:12 Oxygen Delivery Method Room Air Weight: 222 lb 7.143 oz Body Mass Index (BMI) 38.2 Intake & Output: Intake and Output for Last 24 Hours 11/07/22 11/08/22 11/09/22 23:59 23:59 23:59 Intake Total 600 / 600 250 / 250 600 / 600 Output Total 150 / 150 950 / 950 350 / 350 Balance 450 / 450 -700 / -700 250 / 250 Lab / Micro Data Result Diagrams: 11/09/22 05:18 11/09/22 05:18 Labs: Laboratory Results - last 24 hr 11/09/22 05:18: WBC 5.2, RBC 3.50 L, Hgb 11.3 L, Hct 35.1 L, MCV 100.3 H, MCH 32.3 H, MCHC 32.2, RDW Std Deviation 48.4 H, RDW Coeff of Caty 13.3, Plt Count 174, MPV 11.5, Immature Gran % (Auto) 0.600, Neut % (Auto) 63.4, Lymph % (Auto) 17.3 L, [place] % (Auto) 14.6 H, Eos % (Auto) 2.9, Baso % (Auto) 1.2 H, Absolute Neuts (auto) 3.3, Absolute Lymphs (auto) 0.90, Nucleated RBC % 0, ESR 14 11/09/22 05:18: Sodium 142, Potassium 3.8, Chloride 106, Carbon Dioxide 30.0, Anion Gap 6, BUN 39 H, Creatinine 1.08 H, Estim Creat Clear Calc 44.84, Est GFR (MDRD) Af Amer 65, Est GFR (MDRD) Non-Af 54 L, BUN/Creatinine Ratio 36.1 H, Glucose 93, Calcium 8.9, C-React Prot Ext Range 4.47 H Micro: Microbiology 11/01/22 14:00 Urine, Catheterized Urine Culture - Final Strep salivarius sp salivarius Streptococcus mitis/ oralis 10/29/22 17:50 Wound - Leg, Right Gram Stain - Final 10/29/22 17:50 Wound - Leg, Right Wound Culture - Final Staphylococcus aureus Radiography Diagnostic Testing: Radiology Impression Ankle X-Ray 11/08/22 13:22 IMPRESSION: Postoperative changes as described above. Electronically Signed: Good Orlando MD at 14:32 EDT , Foot X-Ray 11/08/22 13:22 IMPRESSION: Postoperative changes as described above. Electronically Signed: Good Orlando MD at 14:33 EDT , Physical Exam Const alert, oriented x3 and no apparent distress Constitutional Narrative: She is a little down in the dumps today because she is homesick but, she is realistic and wants the leg to heal. She will not be able to maintain TTWB since the left leg is so weak. General Appearance: cooperative HEENT Mouth: dry mucous membranes Resp normal respiratory effort and clear to auscultation bilaterally Effort and Inspection: Negative for tachypneic Cardio regular rate, regular rhythm and no gallops GI normal to inspection, nondistended, normoactive bowel sounds, soft to palpation and non-tender Palpation: Negative for guarding Extremity no calf tenderness Extremity Narrative: intact sensation to the R foot. The toes are warm. General Extremity: Negative for edema Skin Rashes: no rashes Assessment & Plan Assessment/Plan (1) Hypovolemia dehydration: (2) Debility: (3) Bimalleolar fracture of right ankle: (4) Acute blood loss anemia: (5) Multiple sclerosis: (6) Peripheral neuropathy: (7) Ulcerative pyoderma gangrenosum: (8) Charcot's joint of left foot: (9) Foot drop, left: (10) Osteopenia: PLAN: Plan 1. Continue therapy 2. Start intake and outputs daily. 3. Encouraged her to increase fluid intake today. Hold the Bumex tomorrow and restart at once a day on . Recheck lab on Tuesday. 4. Dr. Umaña will come in and check the case and possibly remove this week and put he in a boot. Best to maintain NNWB on the RLE because she is not ableto maintain TTWB, mala with the Left leg being so weak. 5. Continue calcium, Miacalcin and vitamin D to promote bone healing and continue Uriel to promote wound healing. 6. DC to TCU on Tuesday. She will get a pass to attend a graduation constitution party on Tuesday. 7. Continue enoxaparin for DVT prophylaxis. 8. NSAID's can delay bone healing......if it does not appear to be healing would consider discontinuing. She takes this for pain control and only takes one daily. Charges/Coding Visit Charges Inpatient E&M: 21887 Subs Hosp L2 11/09/22 1421 <Electronically signed by Sosa Alcala DO> Sosa Alcala DO Cosigner Signature (if applicable): CC: ~ Signed ADDENDUM by Dr. Sosa Alcala DO on 11/09/22 at 1437 Addendum All the hypercoagulable tests are listed as still pending. I called the lab andthey actually are back......they will send me the results. 11/09/22 143 <Electronically signed by Sosa anglin DO> Date _ Sosa Alcala DO Cosigner Signature (if applicable): Date cc: ~* Signed [facility] Work Phone: 1(833) 574-634206-27-2023 Progress note Author Sosa Alcala [facility] November 09, 2022 2:31pm Note Date/Time October 31, 2022 9:13 am [facility] Medical Records Department [address] [place] [address] Progress Note 10/31/22911 MR#: [id number] Acct: [id number] Name: MARIA LUISA VILLALOBOS Rep #:[id number] : 1955 66 From: Sosa Alcala DO PCP: Dr. Walt La DO Status:ADM IN Location: [place] [address]1 Subjective Subjective Finished a 7 day course of doxy for cellulitis of the R lateral thigh Afebrile VSS Maintaining appropriate oxygen saturation on RA Oral intake is good Discussed with nursing - no problems that need addressed Reviewed the PT/OT/ST notes Medication list reviewed. All lab drawn 10/30/2022 was personally reviewed. White blood cell count is normal. Hemoglobin is stable at 11.9. Platelets are now normal at 202,000. ESR was elevated at 43. Sodium was 141 and the potassium is now within normal limits at 3.6 with additional supplementation. The BUN is 23 with a creatinine of 1.04, up from 0.9 on 10/28/2022. GFR is 56 which is consistent with stage IIIa chronic renal failure. Calcium phosphorus and magnesium are all normal. LFTs are unremarkable. CRP is elevated at 47.5. Hypercoagulable panel is pending. Wound cultures positive for methicillin sensitive Staph aureus. Objective Data Objective Data Vital Signs: Vital Signs Temp Pulse Resp BP Pulse Ox O2 Del Method 96.5 F L 66 17 114/55 L 95 Room Air 10/31/22 07:37 10/31/22 07:37 10/31/22 07:37 10/31/22 07:37 10/31/22 07:37 10/31/22 07:37 Oxygen Delivery Method Room Air Weight: 219 lb 2.232 oz Body Mass Index (BMI) 37.6 Intake & Output: Intake and Output for Last 24 Hours 10/29/22 10/30/22 10/31/22 23:59 23:59 23:59 Intake Total 540 / 540 300 / 300 560 / 560 Output Total 650 / 650 1825 / 1825 450 / 450 Balance -110 / -110 -1525 / -1525 110 / 110 Lab / Micro Data Result Diagrams: 11/09/22 05:18 11/09/22 05:18 Labs: Laboratory Results - last 24 hr 10/30/22 05:25: Miscellaneous Test Cancelled Micro: Microbiology 10/29/22 17:50 Wound - Leg, Right Gram Stain - Final 10/29/22 17:50 Wound - Leg, Right Wound Culture - Final Staphylococcus aureus Radiography Diagnostic Testing: Radiology Impression Foot X-Ray 10/29/22 18:19 IMPRESSION: Osteopenia. Degenerative changes above. Electronically Signed: Walt Leyva MD, MADIHA at 9:22 EDT , Physical Exam Const alert, oriented x3 and no apparent distress General Appearance: cooperative and well developed Resp clear to auscultation bilaterally Cardio regular rate, regular rhythm and no gallops Cardio Narrative: No ectopy GI normal to inspection, nondistended, normoactive bowel sounds, soft to palpation and non-tender GI Narrative: No guarding with palpation Extremity no calf tenderness General Extremity: Negative for edema Skin Rashes: no rashes Wound Narrative: Ulcerations on the R lateral thigh are drying up and there is no longer any DC/slough over the wound the culture was taken from. There is some redness around the wounds but, no increased warmth to touch. Psych cooperative and affect normal Appearance: appropriate Assessment & Plan Assessment/Plan (1) Debility: (2) Bimalleolar fracture of right ankle: (3) Acute blood loss anemia: (4) Multiple sclerosis: (5) Peripheral neuropathy: (6) Ulcerative pyoderma gangrenosum: (7) Foot drop, left: (8) Osteopenia: PLAN: Plan 1. Continue therapy 2. Continue nonweightbearing status 3. Observe the wounds on the right lateral thigh. I suspect she may have pyoderma gangrenosum but the treatment is steroids and this would impair healingof the right tib/fib fracture and the wound. Would defer biopsy and treatment until after the wound and the bone are healed unless things get worse. Charges/Coding Visit Charges Inpatient E&M: 09610 Subs Hosp L2 11/09/22 1431 <Electronically signed by Sosa Alcala DO> Sosa Alcala DO Cosigner Signature (if applicable): CC: ~ Signed [facility] Work Phone: 1(906) 561-586306-27-2023 Progress note Author Sosa Alcala [facility] November 09, 2022 2:24pm Note Date/Time November 05, 2022 3:56 pm [facility] Medical Records Department [address] [place] [address] Progress Note 11/05/22 1556 MR#: [id number] Acct: [id number] Name: MARIA LUISA VLILALOBOS Rep #:[id number] : 1955 66 From: Sosa ArevaloMacie Cari DO PCP: Dr. Walt La, DO Status:ADM IN Location: [place] [address]1 Subjective Subjective Afebrile VSS Maintaining appropriate oxygen saturation on RA Oral intake is good Discussed with nursing - no problems that need addressed Reviewed the PT/OT/ST notes Medication list reviewed. Doing well. Denies diarrhea, vaginal discharge or itching, sore mouth or painful swallowing. Also denies chest pain, shortness of breath when at rest, cough, nausea/vomiting/abdominal pain, dysuria, lightheadedness, cephalgia, calfpain and reflux. Objective Data Objective Data Vital Signs: Vital Signs Temp Pulse Resp BP Pulse Ox O2 Del Method 97.5 F L 61 16 113/41 L 94 Room Air 11/05/22 07:30 11/05/22 07:30 11/05/22 07:30 11/05/22 07:30 11/05/22 07:30 11/05/22 07:30 Oxygen Delivery Method Room Air Weight: 222 lb 7.143 oz Body Mass Index (BMI) 38.2 Intake & Output: Intake and Output for Last 24 Hours 11/03/22 11/04/22 11/05/22 23:59 23:59 23:59 Intake Total 1290 / 1290 Output Total 450 / 450 2200 / 2200 Balance -450 / -450 -910 / -910 Lab / Micro Data Result Diagrams: 11/09/22 05:18 11/09/22 05:18 Micro: Microbiology 11/01/22 14:00 Urine, Catheterized Urine Culture - Final Strep salivarius sp salivarius Streptococcus mitis/ oralis 10/29/22 17:50 Wound - Leg, Right Gram Stain - Final 10/29/22 17:50 Wound - Leg, Right Wound Culture - Final Staphylococcus aureus Physical Exam Const alert, oriented x3 and no apparent distress General Appearance: cooperative Resp normal respiratory effort and clear to auscultation bilaterally Cardio regular rate, regular rhythm and no gallops GI normal to inspection, nondistended, normoactive bowel sounds, soft to palpation and non-tender GI Narrative: No guarding with palpation Extremity no calf tenderness Psych cooperative and affect normal Assessment & Plan Assessment/Plan (1) Debility: (2) Bimalleolar fracture of right ankle: (3) Acute blood loss anemia: (4) Multiple sclerosis: (5) Peripheral neuropathy: (6) Ulcerative pyoderma gangrenosum: (7) Foot drop, left: (8) Osteopenia: PLAN: Plan 1. Continue therapy 2. Will need to contact Dr. Umaña to find out when the cast is to be removed and sutures/daphney to be removed. 3. Continue calcium, Miacalcin and vitamin D to promote bone healing. 4. Continue Uriel for wound healing. 5. Continue enoxaparin for DVT prophylaxis. 6. Recheck lab on Tuesday Charges/Coding Visit Charges Inpatient E&M: 34807 Subs Hosp L2 11/09/22 1424 <Electronically signed by Sosa Alcala DO> Sosa Alcala DO Cosigner Signature (if applicable): CC: ~ Signed [facility] Work Phone: [phone]) 331-435806-26-2023 Progress note Author [facility]osa [facility] November 08, 2022 3:40pm Note Date/Time November 08, 2022 11:2 4am [facility] Medical Records Department [address] [place] [address] Progress Note 11/08/22 1122 MR#: [id number] Acct: [id number] Name: MARIA LUISA VILLALOBOS Rep #:[id number] : 1955 66 From: Sosa Alcala DO PCP: Dr. Walt La, DO Status:ADM IN Location: [place] [address] Subjective Subjective Maria Luisa was seen on team rounds today. Afebrile VSS Maintaining appropriate oxygen saturation on RA Oral intake is good Discussed with nursing - no problems that need addressed Reviewed the PT/OT/ST notes Medication list reviewed. Nursing had the pt in the Batsheva-Lift and she put weight on the R leg. When she was lying in bed, she felt a pop in the leg and she tells me that she does not feel like her R leg is doing what she wants. She still has intact sensation in ht toes on the R foot. Cast padding is dry. Detail in the XRAY we obtained today is somewhat obscured by the cast but, everything appears to remain well aligned. Maria Luisa denies lightheadedness, vertigo, CP, SOB at rest, SOB with exertion, cough, nausea, vomiting, abd pain, diarrhea, constipation, dysuria, calf pain and ankle swelling. She denies a bad taste in her mouth or painful swallowing and also denies vaginal itching/discharge and diarrhea. Objective Data Objective Data Vital Signs: Vital Signs Temp Pulse Resp BP Pulse Ox O2 Del Method 96.9 F L 57 L 18 121/53 H 96 Room Air 11/08/22 08:04 11/08/22 08:04 11/08/22 08:04 11/08/22 08:04 11/08/22 08:04 11/08/22 08:04 Oxygen Delivery Method Room Air Weight: 222 lb 7.143 oz Body Mass Index (BMI) 38.2 Intake & Output: Intake and Output for Last 24 Hours 11/06/22 11/07/22 11/08/22 23:59 23:59 23:59 Intake Total 350 / 350 600 / 600 Output Total 375 / 375 150 / 150 600 / 600 Balance -25 / -25 450 / 450 -600 / -600 Lab / Micro Data Result Diagrams: 10/30/22 05:25 10/30/22 05:25 Micro: Microbiology 11/01/22 14:00 Urine, Catheterized Urine Culture - Final Strep salivarius sp salivarius Streptococcus mitis/ oralis 10/29/22 17:50 Wound - Leg, Right Gram Stain - Final 10/29/22 17:50 Wound - Leg, Right Wound Culture - Final Staphylococcus aureus Physical Exam Const alert and no apparent distress Constitutional Narrative: Sitting in the recliner at the bedside. General Appearance: cooperative HEENT moist oral mucous membranes Eyes PERRL, EOMs intact bilaterally, conjunctivae normal and no scleral icterus Neck supple, No nodes and no carotid bruits General: trachea midline Resp normal respiratory effort, no use of accessory muscles and clear to auscultationbilaterally Resp Narrative: Not tachypneic. Effort and Inspection: Negative for tachypneic or labored Cardio regular rate, regular rhythm and no gallops Cardio Narrative: No ectopy Jugular Venous Distention: Negative for JVD GI normal to inspection, nondistended, normoactive bowel sounds, non-tender and non-distended GI Narrative: no guarding with palpation Extremity Negative for no calf tenderness Extremity Narrative: toes on the R foot are warm with intact sensation. General Extremity: Negative for edema Skin Skin Narrative: The ulcerations on the proximal right lateral thigh are drying up and a few of them have completely resolved. There is no discharge and no increased warmth totouch in the area. We will continue to monitor. General Skin Exam: no breakdown Rashes: no rashes Neuro oriented x3 and CN's II-XII intact bilaterally Neuro Narrative: Decreased sensation in both distal LE's. the left leg is very weak and she is unable to lift it off the bed. she has some plantar flexion but, very minimal dorsi flexion. The RLE is in a cast from the toes to the knee. She has good strength in the arms. No facial asymmetry. No visual loss. Can not flex the Left knee. She is able to move abduct and adduct the left leg on the bed. Psych affect normal Appearance: grossly normal, appropriate and well kempt Attitude: calm Assessment & Plan Assessment/Plan (1) Debility: (2) Bimalleolar fracture of right ankle: (3) Acute blood loss anemia: (4) Multiple sclerosis: (5) Peripheral neuropathy: (6) Ulcerative pyoderma gangrenosum: (7) Charcot's joint of left foot: PLAN: ruled out on XRAY (8) Foot drop, left: (9) Osteopenia: PLAN: Tolerating the Miacalcin with no adverse effects. PLAN: Plan 1. Continue therapy 2. CBC, BMP, ESR and CRP in the AM. 3. Continue nonweightbearing status. 4. At discharge from acute rehab will go to half-way on TCU. 5. I sent a text to Dr. Umaña notifying him of the XRAY done today and askingwhen the cast will come off. Maria Luisa denies any pain in the RLE at this time. 6. Pt was told never to allow the Batsheva Lift to be used on her. She is to be strictly NWB. We will tell her when it is OK to TTWB. Charges/Coding Visit Charges Inpatient E&M: 74011 Subs Hosp L2 11/08/22 0501 <Electronically signed by Sosa Alcala DO> Sosa Alcala DO Cosigner Signature (if applicable): CC: ~ Signed [facility] Work Phone: [phone]) 191-152906-26-2023 Progress note Author Sosa Alcala [facility] November 08, 2022 12:12pm Note Date/Time November 03, 2022 12:3 2pm [facility] Medical Records Department [address] [place] [address] Progress Note 11/03/22 1229 MR#: [id number] Acct: [id number] Name: MARIA LUISA VILLALOBOS Rep #:[id number] : 1955 66 From: Sosa Alcala DO PCP: Dr. Walt La, DO Status:ADM IN Location: [place] [address] Subjective Subjective Afebrile VSS Maintaining appropriate oxygen saturation on RA Oral intake is good Discussed with nursing - no problems that need addressed Reviewed the PT/OT/ST notes Medication list reviewed. Urine culture is still pending. Hypercoagulable panel is still pending. Maria Luisa denies lightheadedness, vertigo, CP, SOB at rest, SOB with exertion, cough, nausea, vomiting, abd pain, diarrhea, constipation, dysuria and calf pain. she states she is sleeping pretty well. She is managing the WC very wellnow. Objective Data Objective Data Vital Signs: Vital Signs Temp Pulse Resp BP Pulse Ox O2 Del Method 96.7 F L 62 16 114/57 L 94 Room Air 11/03/22 08:08 11/03/22 08:08 11/03/22 08:08 11/03/22 08:08 11/03/22 08:08 11/03/22 08:08 Oxygen Delivery Method Room Air Weight: 219 lb 2.232 oz Body Mass Index (BMI) 37.6 Intake & Output: Intake and Output for Last 24 Hours 11/01/22 11/02/22 11/03/22 23:59 23:59 23:59 Intake Total 910 / 910 Output Total 650 / 650 1050 / 1050 250 / 250 Balance -650 / -650 -140 / -140 -250 / -250 Lab / Micro Data Result Diagrams: 10/30/22 05:25 10/30/22 05:25 Micro: Microbiology 10/29/22 17:50 Wound - Leg, Right Gram Stain - Final 10/29/22 17:50 Wound - Leg, Right Wound Culture - Final Staphylococcus aureus Physical Exam Const alert, oriented x3 and no apparent distress Constitutional Narrative: Sitting in the recliner at the bedside. Resp clear to auscultation bilaterally Cardio regular rate and regular rhythm GI normal to inspection, nondistended, normoactive bowel sounds, soft to palpation and non-tender Extremity no calf tenderness Extremity Narrative: toes on the R foot are warm with intact sensation. Skin Skin Narrative: The ulcerations on the R lateral thigh are drying up. There is no longer any DCfrom the infected ulceration and the the estee-wound area is less red and less warm to touch. Psych affect normal Appearance: appropriate Assessment & Plan Assessment/Plan (1) Debility: (2) Bimalleolar fracture of right ankle: (3) Acute blood loss anemia: (4) Multiple sclerosis: (5) Peripheral neuropathy: (6) Ulcerative pyoderma gangrenosum: (7) Charcot's joint of left foot: (8) Foot drop, left: (9) Osteopenia: PLAN: Plan 1. Continue therapy. 2. Finish 7 days of cefadroxil. 3. Hold off on biopsy of the ulcerations which I suspect are secondary to PG. The lesions are stable and drying up and I would not want to start steroids to treat because they would impair wound healing. 4. consider starting a medication to promote bone growth.....will discuss with her at the next visit. Charges/Coding Visit Charges Inpatient E&M: 36193 Subs Hosp L2 11/08/22 1212 <Electronically signed by Sosa Alcala DO> Sosa Alcala DO Cosigner Signature (if applicable): CC: ~ Signed [facility] Work Phone: [phone]) 222-859406-19-2023 Progress note Author Sosa Alcala [facility] November 01, 2022 5:32pm Note Date/Time November 01, 2022 11:5 6am [facility] Medical Records Department [address] [place] [address] Progress Note 11/01/22 1155 MR#: [id number] Acct: [id number] Name: AMEENA VILLALOBOSA [place] Rep #:[id number] : 1955 66 From: Sosa Alcala DO PCP: Dr. Walt La, Status:ADM IN Location: [id number] Subjective Subjective Maria Luisa was seen on team rounds today. Her daughter Marita and her aoutuyqt-in-boj Krystal were present in the room for rounds. Day #2/7 of doxycycline Afebrile VSS Maintaining appropriate oxygen saturation on RA Oral intake is good Discussed with nursing - no problems that need addressed Reviewed the PT/OT/ST notes Medication list reviewed. Hypercoagulable panel is still pending today. Maria Luisa denies pain in her right lower extremity today. No adverse effects with Doxycycline. She denies chest pain, shortness of breath, cough, nausea/vomiting/abdominal pain, dysuria and calf tenderness. She is c/o urinaryincontinence twice in the past 24 hours and tells me that this has never happened to her before. PVR's are all less than 10. No dysuria and no urgency. She was unaware that she had been incontinent last night. She tells me that attimes she has had to press down on the suprapubic area to get her urine out whenshe is having an exacerbation of MS. She had a Long in the hospital for the surgery. Objective Data Objective Data Vital Signs: Vital Signs Temp Pulse Resp BP Pulse Ox O2 Del Method 96.8 F L 67 18 118/49 L 96 Room Air 11/01/22 10:00 11/01/22 10:00 11/01/22 10:00 11/01/22 10:00 11/01/22 10:00 11/01/22 10:00 Oxygen Delivery Method Room Air Weight: 219 lb 2.232 oz Body Mass Index (BMI) 37.6 Intake & Output: Intake and Output for Last 24 Hours 10/30/22 10/31/22 11/01/22 23:59 23:59 23:59 Intake Total 300 / 300 1410 / 1410 Output Total 1825 / 1825 900 / 900 300 / 300 Balance -1525 / -1525 510 / 510 -300 / -300 Lab / Micro Data Result Diagrams: 10/30/22 05:25 10/30/22 05:25 Micro: Microbiology 10/29/22 17:50 Wound - Leg, Right Gram Stain - Final 10/29/22 17:50 Wound - Leg, Right Wound Culture - Final Staphylococcus aureus Physical Exam Const alert, oriented x3 and no apparent distress Constitutional Narrative: Sitting in the recliner and appears comfortable. HEENT moist oral mucous membranes Resp clear to auscultation bilaterally Cardio regular rate, regular rhythm and no gallops GI normal to inspection, nondistended, normoactive bowel sounds, soft to palpation and non-tender Extremity no calf tenderness Extremity Narrative: JUNE wraps are in place and there is no pitting edema. Skin Skin Narrative: Will examine the wounds on the R later hip the next time she is in bed and we can undress after therapy. She tells me that she has never had a skin bx. She does see a lumber planer. [facility] [employer]. Assessment & Plan Assessment/Plan (1) Debility: (2) Bimalleolar fracture of right ankle: (3) Acute blood loss anemia: (4) Multiple sclerosis: (5) Peripheral neuropathy: (6) Ulcerative pyoderma gangrenosum: (7) Charcot's joint of left foot: PLAN: No fractures on the XRAY of the left foot. She has diffuse osteopenia andOA. (8) Foot drop, left: (9) Osteopenia: PLAN: On a vitamin D supplement but, no tx for bone loss. PLAN: Plan 1. Continue therapy. We were discussing disposition at [facility] from rehab since sheonly got 15 days to be here by Medicare. The left leg is externally rotated andshe has foot drop. The left leg is extremely weak and will not be able to support her to stand and pivot. she wants to go home but, she will not have 24/7 assistance at home. We discussed having her dtr and dtr-in-law split a shift to assist her during the day and her to assist at night. She can not get on the toilet by herself and will need a BSC. She will be NWB on the R foot for at least a few more weeks and possibly longer. We also discussed TCU post rehab to continue to work on strengthening the L leg. Family and pt are against SNF. Pt thinks she is able to do more than she can and she will not be able to remain NWB on the RLE if she attempts to stand pivot on the L leg. She is doing well with the slide board but, needs assist. Family is willing to come in for shared care training. Disposition to be determined. 2. Continue doxycycline. Would not want to use steroids in a pt with acute cellulitis without proven PG. She tends to heal very slowly and has diffuse osteopenia. Will defer bx for PG to her lumber planer. 3. D/W Dr. Umaña and he has used bone stimulators in these type of patients. Will pursue further with him. 4. Will consider starting her on Miacalcin........she tells me that she had a rx to a medication for osteoporosis in the past that she took once a week which I suspect is a bisphosphonate. Would not want to use EVISTA in a pt who is non-ambulatory with a cast on her leg due to the increased risk for VTE, mala since there is a FH of VTE in her mother and her son. Charges/Coding Visit Charges Inpatient E&M: 98588 Subs Hosp L2 11/01/22 1611 <Electronically signed by Sosa Alcala DO> Sosa Alcala DO Cosigner Signature (if applicable): CC: ~ Signed ADDENDUM by Dr. Sosa Alcala DO on 11/01/22 at 1732 Addendum I went back to talk with Maria Luisa. Reinforced with her that she has been on steroids a lot in the past and for the past 14 years since being diagnosed with MS she has had limited weight bearing and this has lead to significant osteopenia. The R leg was her good leg and now she is unable to bear weight on the R leg. The L is very weak and we have to think of the big picture.......if she falls at home and rebreaks the R leg or breaks the left leg she may never walk again. She also does not heal wounds very well and if the bone came through the skin she would end up with a non-healing wound and at increased risk forinfection. Her is not particularly attentive or helpful at home. she is now thinking that going to TCU following rehab is probably the best, safest option. Will let the SW know. Starting calcium and Miacalcin to promote bone growth. Urine has 2-5 WBCs and no bacteria. Leukocyte esterase is 25. This was a straight cath. Will order a urine culture and sensitivity. 11/01/22 173 <Electronically signed by Sosa anglin DO> Date _ Sosa Alcala DO Cosigner Signature (if applicable): Date cc: ~* Signed [facility] Work Phone: 1(751) 583-535506-16-2023 History and physical note Author Sosa Alcala [facility] October 29, 2022 6:18pm Note Date/Time October 29, 2022 6:18 pm [facility] Medical Records Department [address] [place] [address] Post Admission Physician Raul 10/29/22 1802 MR#: [id number] Acct: [id number] Name: MARIA LUISA VILLALOBOS Rep #:[id number] : 1955 66 From: Sosa Alcala DO PCP: Dr. Walt La, Status:ADM IN Location: [place] [address] Admission Information Primary Diagnosis:: Debility secondary to bimalleolar fracture of the right ankle with open reduction internal fixation on 10/25/2022. In addition she has multiple sclerosis with a dropfoot on the left and severely weakened left leg. Status Changes from Prescreening?: No changes Identified Actual Problem List:: Falls, Skin Intergrity, Bowel, Constipation, Alteration inSleep, Mobility Impaired, Self Care Deficit, Know.Dfct of Medicaitons and Alteration-Leisure Activ. Potential Problem List:: DVT, Bleeding, Infection, UTI, Aspiration, Falls, Skin Integrity and Depression Risk of Complications DVT: LMWH and JARAD Hose Bleeding: Monitor Lab Values, Nursing to Teach Precautions for anti-coagulation therapy., Wound, if applicable, to be assessed every shift. and Stroke patients assessed for lethargy or change in status. Infection: Clinical Staff to Monitor for S/S of infection: and S/S of infection include fever, redness, warmth, etc. Urinary Tract Infection: Monitor for frequency, burning, discomfort, or incontinence. and Nursing will obtain urine sample for urinalysis and C&S when ordered. Aspiration: Clinical staff will monitor for coughing, drooling, congestion., Speech will evaluate swallowing and dsyphasia. and Nursing will monitor patient swallowing during meals. Falls: Patient will be evaluated for Fall Precautions and Patient will be placedon Fall Precautions as indicated per protocol. Skin Breakdown: Nursing will assess skin daily using assessment tool. and Nursing will place on Skin Breakdown Precautions as indicated. Pain: Clinical staff will assess patient's pain level per protocol., Medicationswill be given, if needed, and the pain level reassessed. and Other methods: Massage, distraction, decrease stimulus, etc. used PRN. Plan of Care Patient requires physician specializing in physical medicine and rehab oversightto provide close medical supervision of rehab issues including: Pain Management,Sleep Problems, Bowel and Bladder, Medical and co-morbidity Management, DVT prophylaxis, Rehabilitation Leadership and Coordination of treatment team Patient needs Physical Therapy: For a minimum of 1 hour and At least 5 out of 7 days Patient needs Physical Therapy to improve:: Mobility, Strengthening, Transfers, Stretching, ROM, Endurance, Stairs, Gait and Balance Patient needs Occupational Therapy: For a minimum of 1 hour and At least 5 out of 7 days Patient needs Occupational Therapy to improve ADL's incl.: Eating, Grooming, Bathing, Dressing, Toileting, Toilet transfers, Community Reintegration, Higher functioning activities, Household tasks, Adaptive Equipment, Splinting and Otheractivities as determined Patient requires speech therapy: For a minimum of 1 hour and At least 5 out of 7days Patient requires speech therapy for: Swallowing, Cognition, Language Skills and Compensatory Strategies Patient requires 24/7 Rehabilitation Nursing for: Pain Issues, Identifying and preventing risk factors, Monitoring and reporting current medical conditions, Assisting with ambulation, transfer, and all ADL's, Teaching patients about disease process and medications, Family teaching, Providing safe environment, Bowel and Bladder Issues, Skin integrity and Medication Management Patient needs Flume Maker/ Case Management for: Discharge Planning, Arranging Home Equipment or Services and Family Interventions Patient needs Dietary and Nutrition Services for: Adequate Nutrition, Nutritional Supplements and Nutritional Education Goals Patient will remain: free from falls and or injury at time of discharge. Patient will perform bed mobility at: MOD I level of assist. Patient will complete transfers from bed to chair at: Standby Assist. Patient will ambulate: - (Not a goal for this patient during this admission. ) Patient will propel wheelchair: - (250 feet at standby assist on various surfaces) Patient will complete upper body dressing at: MOD I level of assist. Patient will complete lower body dressing at: MOD I level of assist. (with adaptive equipment. ) Patient will complete toileting at: - (Will complete toilet transfer and toileting tasks at min assist.) Patient will perform bathing at: - (min-mod assist) Patient will complete grooming at: MOD I level of assist. Patient will achieve: - (not a goal at this time) Patient will have pain level of: of 3 or less Patient's skin will: remain intact and free from infection. Patient will receive: adequate nutrition. Discharge Planning Pt Prognosis for Sig. Practical Improv. w/in Reasonable Time: Good Estimated Length of stay (days): 21 Anticipated D/C Destination: Home with Home Health ([facility] at least initially) Was Preadmission Assessment Accurate?: Yes 10/29/221817 <Electronically signed by Sosa Alcala DO> Cosigner Signature (if applicable): CC: ~ Signed [facility] Work Phone: [phone]) 372-326606-16-2023 History and physical note Author [facility] October 29, 2022 6:09pm Note Date/Time October 29, 2022 3:33 pm [facility] Medical Records Department [address] [place] [address] History & Physical Exam 10/29/22 1509 MR#: [id number] Acct: [id number] Name: MARIA LUISA VILLALOBOS Rep #:[id number] : 1955 66 From: Sosa Alcala DO PCP: Dr. Walt La, Status:ADM IN Location: [place] [id number] HPI - General General Date of Admission: 10/28/22 Date of Service: 10/29/22 Chief Complaint: Debility due to bimalleolar fracture of the R ankle in a pt with MS. HPI Narrative MARIA LUISABrinda KITCHEN, is a 66 YO F with a PMH of MS, obesity, HTN, tobacco dependence in remission, GERD, migraines, osteopenia, mild left atrial enlargement, mild MR, internal hemorrhoids and peripheral neuropathy who presented to the ED at [facility] early on 10/25/22 stating she had 3 falls that day andshe was not able to ambulate/bear wt after the last fall. XRAY showed partiallydisplaced bimalleolar right ankle fracture with mild ankle joint space widening/instability. She was admitted to the hospitalist service and podiatry was consulted. She was taken to surgery on 10/25/22 for open reduction internal fixation by Dr. Umaña. Post operatively she was seen by PT/OT and they recommended acute inpt rehab at [place]. she was transferred to the acute inpt rehabunit at [facility] on 10/28/22 for 3 hours of therapy daily to restore function at or near her level prior to the fracture. [facility] Medical History (Updated 10/29/22 @ 17:[address] Sosa Alcala DO) Anxiety COVID-19 Difficulty swallowing Exacerbation of multiple sclerosis Former smoker Gastric reflux History of gastric polyp History of GI bleed History of stress test Hypertension Migraine headache Multiple sclerosis Osteopenia Peripheral neuropathy Shortness of breath on exertion Home Medications amitriptyline 100 mg tablet 100 mg PO QHS DEPRESSION 08/04/14 [History Last Taken 09/03/18] atenolol 50 mg tablet 50 mg PO DAILY BLOOD PRESSURE 08/04/14 [History Last Taken 03/24/22] atenolol 50 mg tablet 75 mg PO QHS BLOOD PRESSURE 08/04/14 [History Last Taken 09/03/18] baclofen 20 mg tablet 30 mg PO Q8 MS 08/04/14 [History Last Taken 09/03/18] cholecalciferol (vitamin D3) 1,250 mcg (50,000 unit) capsule 50,000 unit PO TUTHSupplement 08/04/14 [History Last Taken 10/28/22 09:00] cyanocobalamin (vitamin B-12) 1,000 mcg/mL injection solution 100 mcg IM Q30D SUPPLEMENT 08/04/14 [History Last Taken 10/18/22 10:00] ibuprofen 200 mg tablet 400 mg PO DAILY PAIN 08/04/14 [History Last Taken 10/28/22 09:30] tramadol 50 mg tablet 50 mg PO Q6H PRN PRN Pain 1-10 09/03/18 [History Last Taken Unknown] amantadine HCl 100 mg capsule 100 mg PO BID SPASMS 09/04/18 [History Last Taken Unknown] bumetanide 2 mg tablet 2 mg PO BID WATER PILL 09/04/18 [History Last Taken Unknown] sumatriptan succinate 50 mg tablet (Imitrex) 50 mg PO ONCE PRN migraine gzrijbuu54/17/22 [History Last Taken Unknown] clonazepam 0.5 mg tablet (Klonopin) 0.5 mg PO QHS PRN Spasms 10/25/22 [History Last Taken Unknown] pantoprazole 40 mg tablet,delayed release 40 mg PO DAILY STOMACH 10/25/22 [History Last Taken Unknown] potassium chloride 20 mEq tablet,extended release(part/cryst) 20 meq PO DAILY SUPPLEMENT 10/25/22 [History Last Taken Unknown] enoxaparin 40 mg/0.4 mL subcutaneous syringe (Lovenox) 40 mg subcut DAILY@0600 Check with primary doctor 10/28/22 [History Last Taken Unknown] Allergy/AdvReac Type Severity Reaction Status Date / Time adhesive AdvReac RED Verified 10/24/22 22:15 amlodipine besylate AdvReac Nausea Verified 10/24/22 22:15 [From Lotrel] benazepril HCl [From Lotrel] AdvReac Nausea Verified 10/24/22 22:15 codeine AdvReac Nausea Verified 10/24/22 22:15 latex AdvReac RED Verified 10/24/22 22:15 Penicillins AdvReac Nausea Verified 10/24/22 22:15 Family History (Updated 10/29/22 @ 16:[address] Sosa Alcala DO) Brother Diabetes Heart disease Kidney disease Cancer Mother Diabetes Hypertension Thyroid disorder VTE (venous thromboembolism) Son VTE (venous thromboembolism) Surgical History (Updated 10/29/22 @ 17:[address] Sosa Alcala DO) History of cataract surgery History of colonoscopy History of hysterectomy History of skin surgery History of surgical procedure on mouth Social History (Updated 10/29/22 @ 16:[address] Sosa Alcala DO) household members: spouse housing: house pets and animals: Yes Smoking Status: Former smoker pack-years: 35 Tobacco: How many years used: 35 how long ago did patient quit smoking: quit smoking in 2008 and started as a teenager. alcohol intake: never substance use type: does not use additional social history: uses ibuprofen daily ROS Constitutional Constitutional: Reports fatigue and weakness; Denies anorexia, change in weight,chills, fever(s) or night sweats Eyes Eyes: Denies blurry vision, change in vision, eye pain or loss of vision ENT HEENT: Reports dysphagia and headache(s); Denies abnormal hearing, hearing loss,nasal congestion or sore throat Cardiovascular Cardiovascular: Denies chest pain, dyspnea on exertion, edema, lightheadedness, orthopnea, palpitations, paroxysmal nocturnal dyspnea or syncope Respiratory/Chest Respiratory/Chest: Denies cough, dyspnea, shortness of breath at rest, shortnessof breath with exertion or wheezing Gastrointestinal Gastrointestinal: Denies abdominal pain, constipation, diarrhea, dyspepsia, hematemesis, hematochezia, nausea or vomiting Genitourinary Genitourinary: Reports urinary urgency; Denies dysuria or urinary hesitancy Musculoskeletal Musculoskeletal: Denies back pain, joint pain, joint swelling or neck pain Neurologic Neurologic: Reports focal weakness, paresthesias and sensory deficit; Denies confusion, disequilibrium, dizziness, headache(s), seizures or tremor(s) Psychiatric Psychiatric: Denies anxiety, depression, homicidal ideation or suicidal ideation Endocrine Endocrinology: Denies change in body appearance, polydipsia or polyuria Hematologic/Lymphatic Hematologic/Lymphatic: Denies easy bleeding, easy bruising or lymphadenopathy Allergic/Immunologic Allergic/Immunologic: Denies rhinitis, eczemia or asthma Vital Signs Vital Signs Vital Signs: 10/28/22 17:17 10/28/22 19:42 10/28/22 22:00 Temperature 97 F L 97.1 F L Temperature Source Temporal Temporal Pulse Rate 62 63 63 Respiratory Rate 18 18 16 Respiratory Effort Normal Non-Labored Respiratory Depth Normal Respiratory Pattern Normal Blood Pressure 124/51 H 120/52 L Blood Pressure Mean 75 74 Blood Pressure Source Monitor Monitor Blood Pressure Position Sitting Sitting Blood Pressure Location Right Arm Right Arm Pulse Ox 98 98 95 Oxygen Delivery Method Room Air Room Air Room Air 10/29/22 07:37 10/28/22 16:20 10/29/22 13:26 Temperature 97.9 F Temperature Source Temporal Pulse Rate 98 Respiratory Rate 15 Respiratory Effort Respiratory Depth Respiratory Pattern Blood Pressure 111/44 L Blood Pressure Mean 66 Blood Pressure Source Monitor Blood Pressure Position Semi-Fowlers Blood Pressure Location Right Arm Pulse Ox 97 Oxygen Delivery Method Room Air Room Air Room Air Weight Weight: 219 lb 2.232 oz Body Mass Index (BMI) 37.6 Physical Exam Const alert, oriented x3 and no apparent distress General Appearance: cooperative, well kempt and well developed HEENT normocephalic, head/scalp atraumatic and hearing grossly normal bilaterally HEENT Narrative: thrush present, dry mucous membranes Eyes PERRL, EOMs intact bilaterally, conjunctivae normal and no scleral icterus Neck supple, No nodes and no carotid bruits General: trachea midline Resp normal respiratory effort, normal air movement and clear to auscultation bilaterally Resp Narrative: Not tachypneic. Effort and Inspection: able to speak in complete sentences Cardio regular rate, regular rhythm, S2 normal heart sound, no murmurs, no rub and no gallops Cardio Narrative: No ectopy Jugular Venous Distention: Negative for JVD GI normal to inspection, nondistended, normoactive bowel sounds, soft to palpation,non-tender and no masses GI Narrative: she has severe intertrigo beneath the pannus and in the folds of the groin BL Extremity no calf tenderness Extremity Narrative: DP pulses are 3+ BL. Both feet are warm to the touch. There is a large callouson the Left medial foot which is painful. There seems to be a bony prominence under the callous. No erythema, no openings in the skin. General Extremity: edema Skin Skin Narrative: She has several ulcerated lesions on the upper R lateral thigh. No odor. One of the lesions is 50% slough. They have red/purple rings around them. Some of the borders are raised. she has a scab on the anterior Left distal leg that looked the same way and is now healed. There is also a scaley reddened area on the L buttock that was opened but is now closed. She has been using steroid cream to treat them RLE is in a cast to the knee. Neuro oriented x3 and CN's II-XII intact bilaterally Neuro Narrative: Decreased sensation in both distal LE's. the left leg is very weak and she is unable to lift it off the bed. she has some plantar flexion but, very minimal dorsi flexion. The RLE is in a cast from the toes to the knee. She has good strength in the arms. No facial asymmetry. No visual loss. Can not flex the Left knee. She is able to move abduct and adduct the left leg on the bed. Psych mental status grossly normal, thought process normal, cooperative, affect normal, denies homicidal ideation and denies suicidal ideation Appearance: grossly normal, appropriate and well kempt Attitude: calm Assessment & Plan Assessment/Plan (1) Debility: (2) Bimalleolar fracture of right ankle: (3) History of open reduction and internal fixation (ORIF) procedure: PLAN: 10/25/[address] Umaña (4) Hypokalemia: (5) Acute blood loss anemia: (6) Multiple sclerosis: (7) Peripheral neuropathy: (8) Ulcerative pyoderma gangrenosum: (9) Constipation: (10) Acid reflux: (11) HTN (hypertension): (12) Migraine headache: (13) Charcot's joint of left foot: (14) Foot drop, left: (15) Osteopenia: PLAN: Plan PLAN PT for gait stability OT for ADL's ST for evaluation for swallowing Analgesics as needed Bowel protocol Fall precautions Assess for Anxiety/Depression GI prophylaxis with pantoprazole DVT prophylaxis with enoxaparin Follow up with neurology, Dr. Umaña and either dermatology or rheumatology following DC from Rehab AM lab including CMP, CBC, Mag, ESR, CRP, Phos, HGBA1C, hypercoagulability panel- mother of a PE and her some has had DVT and she has suspected PG Culture the wound for bacteria, fungus and AFB She has had a hepatitis panel that was negative in the last 2 years. ARIC, dsDNA, RF CCP all negative. IgM is persistently low. Consider doing a SPE and immunoelectrophoresis. I suspect the ulcerated lesions on her legs are pyoderma gangrenosum. This is adiagnosis of exclusion usually. If the wound culture is negative will likely proceed with and elliptical bx of the wound and the rim. They do not appear to be infected. She has osteopenia and her wt bearing is limited by the MS. Her last BMD was [id number]. She should be having them every 2 years. Has been on a bisphosphonate inthe past but tells me it made her sick and it was discontinued. She does take avitamin D supplement. She has had fractures of the Left foot in the past and she has neuropathy and a very large callous on the medial side of the foot in the arch. It feels as though there is a eveline prominence under the callous and it is painful to put any weight on it. she may have a charcot foot. Will ordera plain XRAY to start. With the osteopenia and her hx of not healing wounds )likely related to Ocrevus, She may benefit from a bone stimulator......will discuss with Dr. Umaña. I suspect that she is going to be WC bound, at least until the fracture is healed. Her Left leg is very weak and will not support her and she is NWB on the RLE. Will need to work on WC mobility and upper body strength. Hopefully we can get some strength back in the LLE or she may be WC bound for a long time. She received Ocrevus last week. Charges/Coding Visit Charges Inpatient E&M: 88035 Init Hosp L3 10/29/221808 <Electronically signed by Sosa Alcala DO> Cosigner Signature (if applicable): CC: DPAlessandro Umaña; Dr. Walt La DO; Dr. Sosa Alcala DO~ Signed [facility] Work Phone: [phone]) [phone] Escalante [facility] October 28, 2022 12:33pm Note Date/Time October 28, 2022 12:3 3pm [facility] Medical Records Department [address] [place] [address] Instructions for Home/Discharge Instructions 10/28/22 1232 MR#: [id number] Acct: [id number] Name: MARIA LUISA VILLALOBOS Rep #:[id number] : 1955 66 From: Lorna Escalante MD PCP: Dr. Walt La DO Status:ADM IN Discharge Instructions Diet Discharge Diet: Low fat / Low cholesterol Activity Discharge Activity: Return to Normal Activity Weight Bearing Status: Weight bearing as tolerated Dressing / Incision Call your doctor if you observe: Fever of 101 or Higher, Shortness of breath, Swelling in the ankles and Chest pain Follow Up Care Test Results: Test results from this visit will be discussed in further detail at your follow- up appointment, if applicable. Discharge Plan Admission Admit Date/Time: 10/25/22 00:28 Primary Reason for Your Visit: right bimalleolar fracture due to mechanical fall Attending Provider: Lorna Escalante Primary Care Provider: Walt La Consulting Providers: Jann Wright ; Juan Manuel Umaña Instructions Patient Instructions: Ankle Fracture ORIF Discharge Orders/Prescriptions Prescriptions: New enoxaparin [Lovenox] 40 mg/0.4 mL syringe 40 mg subcut DAILY 14 Days Qty: 5.6 0RF Continued sumatriptan succinate [Imitrex] 50 mg tablet 50 mg PO ONCE PRN (Reason: migraine headache) baclofen 20 MG tablet 30 mg PO Q8 cyanocobalamin (vitamin B-12) 1,000 MCG/ML solution 100 mcg IM Q30D ibuprofen 200 MG tablet 400 mg PO DAILY amitriptyline 100 MG tablet 100 mg PO QHS atenolol 50 MG tablet 75 mg PO QHS atenolol 50 MG tablet 50 mg PO DAILY cholecalciferol (vitamin D3) 50,000 UNIT capsule 50,000 unit PO TUTH tramadol 50 MG tablet 50 mg PO Q4H PRN PRN (Reason: Pain) bumetanide 2 MG tablet 2 mg PO BID ocrelizumab 300 MG/10 ML solution 300 mg IV Q6M Rx Instructions: every 6 months due November 2018. last had Jun 2018 amantadine HCl 100 MG capsule 100 mg PO BID potassium chloride 20 MEQ tablet,ER particles/crystals 20 meq PO DAILY pantoprazole 40 mg tablet,delayed release (DR/EC) 40 mg PO DAILY fluconazole 200 mg tablet 200 mg PO DAILY PRN (Reason: INFECTION) clonazepam [Klonopin] 0.5 mg Tablet 0.5 mg PO QHS PRN (Reason: Spasms) Rx Instructions: administer 30 minutes before bedtime Referrals / Follow Up: Juan Manuel Umaña DPM [Med Staff - Active Staff] - Within 1 Week Walt La DO [Primary Care Provider] - Within 2 Weeks Disposition Disposition (needs filled in before D/C Order can be placed): Inpatient Rehab Unit/Facility 10/28/22 1233<Electronically signed by Lorna Escalante MD>Lorna Escalante MD CC: TAMMIE Umaña; Dr. Jann Wright MD; Dr. Walt La DO ~ Signed [facility] Work Phone: [phone]) 308-162406-13-[address] [facility] 26, [facility] 4:38pm Note Date/Time October 26, 2022 1:34 pm [facility] Medical Records Department [address] [place] [address] Progress Note 10/26/22 1332 MR#: [id number] Acct: [id number] Name: MARIA LUISA VILLALOBOS Rep #:[id number] : 1955 66 From: Lorna Escalante MD PCP: Dr. Walt La, DO Status:ADM IN Location: [facility] KI599-1 Subjective Subjective Patient seen and examined. She complained of some spasms in her right leg. However, she didnt have any pain in her right leg. She has no other complaints. Today is POD 1 of ORIF of the right ankle bimalleolar fracture. Objective Data Objective Data Vital Signs: Vital Signs Temp Pulse Resp BP Pulse Ox O2 Del Method 98.2 F 70 18 126/58 H 98 Room Air 10/26/22 08:15 10/26/22 08:15 10/26/22 08:15 10/26/22 08:15 10/26/22 08:15 10/26/22 08:15 Oxygen Delivery Method Room Air Weight: 219 lb 4.8 oz Body Mass Index (BMI) 37.6 Intake & Output: Intake and Output for Last 24 Hours 10/24/22 10/25/22 10/26/22 23:59 23:59 23:59 Intake Total 1414.75 / 1414.75 747.5 / 747.5 Output Total 3500 / 3500 450 / 450 Balance -2085.25 / -2085.25 297.5 / 297.5 Lab / Micro Data Result Diagrams: 10/26/22 06:23 10/26/22 06:23 Labs: Laboratory Results - last 24 hr 10/26/22 06:23: WBC 11.1 H, RBC 3.59 L, Hgb 11.8 L, Hct 35.1 L, MCV 97.8, MCH 32.9 H, MCHC 33.6, RDW Std Deviation 48.3 H, RDW Coeff of Caty 13.5, Plt Count 156, MPV 11.3, Immature Gran % (Auto) 0.500, Neut % (Auto) 86.1 H, Lymph % (Auto) 6.1 L, [place] % (Auto) 7.2, Eos % (Auto) 0.0, Baso % (Auto) 0.1, Absolute Neuts (auto) 9.5 H, Absolute Lymphs (auto) 0.67 L, Nucleated RBC % 0 10/26/22 06:23: Sodium 141, Potassium 3.5, Chloride 106, Carbon Dioxide 29.0, Anion Gap 6, BUN 14, Creatinine 0.84, Estim Creat Clear Calc 57.66, Est GFR (MDRD) Af Amer 88, Est GFR (MDRD) Non-Af 73, BUN/Creatinine Ratio 16.8, Glucose 105, Calcium 8.3 L Radiography Diagnostic Testing: Radiology Impression Ankle X-Ray 10/25/22 14:00 IMPRESSION: Intraoperative spot films obtained during ORIF right ankle. Electronically Signed: Jamey Caballero MD at 18:21 EDT , Physical Exam Const alert, oriented x3 and no apparent distress General Appearance: cooperative and well developed HEENT normocephalic and moist oral mucous membranes Eyes PERRL and EOMs intact bilaterally Neck no lymphadenopathy, supple and no JVD Lymph Lymphatic: no lymphadenopathy noted and no lymphedema noted Resp normal respiratory effort, normal air movement and clear to auscultation bilaterally Cardio regular rate, regular rhythm, S1 normal heart sound and S2 normal heart sound GI normal to inspection, nondistended, normoactive bowel sounds, soft to palpation,non-tender and non-distended Extremity Extremity Narrative: RLE wrapped in splint. Skin General Skin Exam: no breakdown and turgor normal Neuro CN's II-XII intact bilaterally, no focal motor deficits and no sensory deficits noted Psych thought process normal Appearance: appropriate Assessment & Plan Assessment/Plan (1) Bimalleolar fracture of right ankle: PLAN: Plan #RLE bilateral malleolar fracture due to mechanical fall * Today's postop day 1 for open reduction and internal fixation of right bimalleolar ankle fracture * Is complaining of spasms in her right foot. Right foot wrapped in a cast. * PT/OT on board * IV morphine and PO oxycodone for pain * podiatry on board. * fall precautions #Multiple sclerosis: * stable. On ocrelizumab. Complains of spasms in her foot. She is concerned that this might interfere with this entity of her surgical site. * On baclofen 30 mg 3 times daily. Says it is helped by Klonopin which she takes at night. * She is currently maxed out on baclofen. Will monitor spasms for now #HYpertension;on amlodipine and atenolol. also on bumex. #History of migraines: on sumatriptan DVT prophylaxis: lovenox Disposition: Will likely need to go to rehab facility. Charges/Coding Visit Charges Inpatient E&M: 46179 Subs Hosp L2 10/26/22 1638 <Electronically signed by Lorna Escalante MD> Lorna Escalante MD Cosigner Signature (if applicable): CC: ~ Signed [facility] Work Phone: [phone]) 683-731106-13-[address] Umaña [facility] October 26, 2022 1:20pm Note Date/Time October 26, 2022 1:20 pm [facility] Medical Records Department [address] [place] [id number] Progress Note 10/26/22 1318 MR#: [id number] Acct: [id number] Name: MARIA LUISA VILLALOBOS Rep #:[id number] : 1955 66 From: Juan Manuel Umaña DPM PCP: Dr. Walt La, DO Status:ADM IN Location: [place] [id number] Subjective Subjective 66F seen 1 day post op. pain controlled. no consittutionals. patient voiding through catheter. passing gas. Objective Data Objective Data Vital Signs: Vital Signs Temp Pulse Resp BP Pulse Ox O2 Del Method 98.2 F 70 18 126/58 H 98 Room Air 10/26/22 08:15 10/26/22 08:15 10/26/22 08:15 10/26/22 08:15 10/26/22 08:15 10/26/22 08:15 Oxygen Delivery Method Room Air Weight: 99.473 kg Body Mass Index (BMI) 37.6 Intake & Output: Intake and Output for Last 24 Hours 10/24/22 10/25/22 10/26/22 23:59 23:59 23:59 Intake Total 1414.75 / 1414.75 747.5 / 747.5 Output Total 3500 / 3500 450 / 450 Balance -2085.25 / -5.25 297.5 / 297.5 Lab / Micro Data Result Diagrams: 10/26/22 06:23 10/26/22 06:23 Labs: Laboratory Results - last 24 hr 10/26/22 06:23: WBC 11.1 H, RBC 3.59 L, Hgb 11.8 L, Hct 35.1 L, MCV 97.8, MCH 32.9 H, MCHC 33.6, RDW Std Deviation 48.3 H, RDW Coeff of Caty 13.5, Plt Count 156,MPV 11.3, Immature Gran % (Auto) 0.500, Neut % (Auto) 86.1 H, Lymph % (Auto) 6.1L, [place] % (Auto) 7.2, Eos % (Auto) 0.0, Baso % (Auto) 0.1, Absolute Neuts (auto)9.5 H, Absolute Lymphs (auto) 0.67 L, Nucleated RBC % 0 10/26/22 06:23: Sodium 141, Potassium 3.5, Chloride 106, Carbon Dioxide 29.0, Anion Gap 6, BUN 14, Creatinine 0.84, Estim Creat Clear Calc 57.66, Est GFR (MDRD) Af Amer 88, Est GFR (MDRD) Non-Af 73, BUN/Creatinine Ratio 16.8, Glucose 105, Calcium 8.3 L Radiography Diagnostic Testing: Radiology Impression Ankle X-Ray 10/25/22 14:00 IMPRESSION: Intraoperative spot films obtained during ORIF right ankle. Electronically Signed: Jamey Caballero MD at 18:21 EDT , Physical Exam Narrative NV status intact to digits on right no pain with calf squeeze splint intact on right patient able to move digits actively Const alert and oriented x3 Assessment & Plan Assessment/Plan (1) Bimalleolar fracture of right ankle: PLAN: Exam performed patient doing well continue NWB on right for 4 weeks will follow patient weekly if dc'd to TCU vs in two weeks outpatient recommend lovenox on dc for DVT prophylaxis 10/26/22 1320 <Electronically signed by Juan Manuel Umaña DPM> Juan Manuel Umaña DPM Cosigner Signature (if applicable): CC: ~ Signed [facility] Work Phone: [phone]) 341-865006-12-[address] Escalante [facility] October 25, 2022 4:54pm Note Date/Time October 25, 2022 2:17 pm [facility] Medical Records Department [address] [place] [address] Progress Note 10/25/22 1414 MR#: [id number] Acct: [id number] Name: MARIA LUISA VILLALOBOS Rep #:[id number] : 1955 66 From: Lorna Escalante MD PCP: Dr. Walt La, DO Status:ADM IN [id number] Subjective Patient seen and examined. She was admitted with a complaint of mechanical fall while doing some gardening. On the third fall she had a snapping and popping ofher right ankle with excruciating pain. On admission she was found to have a bimalleolar fracture. She had the leg splinted in the ED and has been admitted to be managed for right lower extremity malleolar fracture. Pain is well controlled. She had no acute complaints. Review of systems otherwise negative. Labs and vitals reviewed. She has remained hemodynamically stable. Objective Data Objective Data Vital Signs: Vital Signs Temp Pulse Resp BP Pulse Ox O2 Del Method 97.9 F 63 18 136/59 H 94 Room Air 10/25/22 08:30 10/25/22 08:30 10/25/22 08:30 10/25/22 08:30 10/25/22 11:00 10/25/22 11:00 Oxygen Delivery Method Room Air Weight: 219 lb 4.8 oz Body Mass Index (BMI) 37.6 Intake & Output: Intake and Output for Last 24 Hours 10/23/22 10/24/22 10/25/22 23:59 23:59 23:59 Intake Total 350 / 350 Output Total 1100 / 1100 Balance -750 / -750 Lab / Micro Data Result Diagrams: 10/25/22 06:15 10/25/22 06:15 Labs: Laboratory Results - last 24 hr 10/25/22 06:15: Vitamin D 25-Hydroxy 48.2 10/25/22 06:15: WBC 7.4, RBC 3.55 L, Hgb 11.4 L, Hct 35.2 L, MCV 99.2 H, MCH 32.1 H, MCHC 32.4, RDW Std Deviation 50.0 H, RDW Coeff of Caty 13.5, Plt Count 146 L, MPV 11.5, Immature Gran % (Auto) 0.300, Neut % (Auto) 71.9 H, Lymph % (Auto) 12.7 L, [place] % (Auto) 12.4 H, Eos % (Auto) 2.2, Baso % (Auto) 0.5, Absolute Neuts (auto) 5.3, Absolute Lymphs (auto) 0.94, Nucleated RBC % 0 10/25/22 06:15: Sodium 145, Potassium 3.2 L, Chloride 110 H, Carbon Dioxide 28.0, Anion Gap 7, BUN 17, Creatinine 0.89, Estim Creat Clear Calc 54.42, Est GFR (MDRD) Af Amer 82, Est GFR (MDRD) Non-Af 68, BUN/Creatinine Ratio 19.2, Glucose 89, Calcium 8.8 Radiography Diagnostic Testing: Radiology Impression Ankle X-Ray 10/24/22 22:20 IMPRESSION: Partially displaced bimalleolar right ankle fracture with mild ankle joint space widening/instability. Electronically Signed: Walt Woodward MD at 22:55 EDT , Physical Exam Const alert, oriented x3 and no apparent distress HEENT normocephalic and moist oral mucous membranes Eyes PERRL and EOMs intact bilaterally Neck no lymphadenopathy, supple and no JVD Lymph Lymphatic: no lymphadenopathy noted and no lymphedema noted Resp normal respiratory effort, normal air movement and clear to auscultation bilaterally Cardio regular rate, regular rhythm, S1 normal heart sound and S2 normal heart sound GI normal to inspection, nondistended, normoactive bowel sounds, soft to palpation,non-tender and non-distended Extremity Extremity Narrative: RLE wrapped in splint. Skin General Skin Exam: no breakdown and turgor normal Neuro CN's II-XII intact bilaterally, no focal motor deficits and no sensory deficits noted Psych thought process normal Appearance: appropriate Assessment & Plan Assessment/Plan (1) Bimalleolar fracture of right ankle: PLAN: Plan #RLE bilateral malleolar fracture due to mechanical fall * X-ray of the right ankle showed partial displaced by malleolar right ankle fracture with mild ankle joint space widening and instability * PT/OT on board * IV morphine and PO oxycodone for pain * podiatry on board. * fall precautions * for surgery today. * #Multiple sclerosis: stable. On ocrelizumab. #HYpertension;on amlodipine and atenolol. also on bumex. #History of migraines: on sumatriptan DVT prophylaxis: lovenox Charges/Coding Visit Charges Inpatient E&M: 06421 Subs Hosp L2 10/25/22 1654 <Electronically signed by Lorna Escalante MD> Lorna Escalante MD Cosigner Signature (if applicable): CC: ~ Signed [facility] Work Phone: [phone]) 139-512806-12-2023 Procedure [facility] 10-25-[address] Umaña [facility] October 25, 2022 12:00pm Note Date/Time October 25, 2022 12:0 0pm [facility] Medical Records Department [address] [place] [address] Consultation 10/25/22 1156 MR#: [id number] Acct: [id number] Name: MARIA LUISA VILLALOBOS Rep #:[id number] : 1955 66 From: Juan Manuel Umaña DPM PCP: Dr. Walt La, DO Status:ADM IN Location: [facility] MN745-2 Assessment & Plan Assessment/Plan (1) Bimalleolar fracture of right ankle: PLAN: Exam performed Radiographs taken/reviewed Discussed treatment with patient in great detail. Discussed surgical intervention to stabilize the right ankle and reduce the fracture fragments to allow for patient to return to ambulation. Patient wishesto proceed. All inherent risks benefits and alternative treatments discussed with patient in great detail. We will plan for ORIF right ankle fracture today at 1:30 PM. Consider outpatient bracing left ankle for dropfoot deformity to allow for stabilization. Plan at current is to have patient completely nonweightbearing in a wheelchair due to MS and instability in general. HPI Consult Data Date of Consult: 10/25/22 HPI Narrative HPI Narrative: MARIA LUISA KITCHEN, is a 66 F who presents after she fell in her garden last night. Patient fell a second time and Presented to the ED. Radiographs were taken demonstrated mildly displaced bimalleolar right ankle fracture. Patient admitted due to gait instability secondary to patient's neuropathy and MS. [facility] Medical History Anxiety COVID-19 Difficulty swallowing Easy bruising Excessive bleeding Former smoker Gastric reflux History of edema History of GI bleed History of stress test Hoarseness Hypertension Influenza A bronchitis Leg cramps Migraine headache Multiple sclerosis Peripheral neuropathy PONV (postoperative nausea and vomiting) Shortness of breath on exertion Walker as ambulation aid Wears glasses Wears partial dentures Home Medications amitriptyline 100 mg tablet 100 mg PO QHS DEPRESSION 08/04/14 [History Last Taken 09/03/18] atenolol 50 mg tablet 50 mg PO DAILY BLOOD PRESSURE 08/04/14 [History Last Taken 03/24/22] atenolol 50 mg tablet 75 mg PO QHS BLOOD PRESSURE 08/04/14 [History Last Taken 09/03/18] baclofen 20 mg tablet 30 mg PO Q8 MS 08/04/14 [History Last Taken 09/03/18] cholecalciferol (vitamin D3) 1,250 mcg (50,000 unit) capsule 50,000 unit PO TUTHSupplement 08/04/14 [History Last Taken 09/03/18] cyanocobalamin (vitamin B-12) 1,000 mcg/mL injection solution 100 mcg IM Q30D SUPPLEMENT 08/04/14 [History Last Taken 09/03/18] ibuprofen 200 mg tablet 400 mg PO DAILY PAIN 08/04/14 [History Last Taken 09/03/18] tramadol 50 mg tablet 50 mg PO Q4H PRN PRN Pain 09/03/18 [History Last Taken Unknown] amantadine HCl 100 mg capsule 100 mg PO BID SPASMS 09/04/18 [History Last Taken Unknown] bumetanide 2 mg tablet 2 mg PO BID WATER PILL 09/04/18 [History Last Taken Unknown] ocrelizumab 30 mg/mL intravenous solution 300 mg IV Q6M MS 09/04/18 [History Last Taken Unknown] sumatriptan succinate 50 mg tablet (Imitrex) 50 mg PO ONCE PRN migraine /17/22 [History Last Taken Unknown] clonazepam 0.5 mg tablet (Klonopin) 0.5 mg PO QHS PRN Spasms 10/25/22 [History Last Taken Unknown] fluconazole 200 mg tablet 200 mg PO DAILY PRN INFECTION 10/25/22 [History Last Taken Unknown] pantoprazole 40 mg tablet,delayed release 40 mg PO DAILY STOMACH 10/25/22 [History Last Taken Unknown] potassium chloride 20 mEq tablet,extended release(part/cryst) 20 meq PO DAILY SUPPLEMENT 10/25/22 [History Last Taken Unknown] Allergy/AdvReac Type Severity Reaction Status Date / Time adhesive AdvReac RED Verified 10/24/22 22:15 amlodipine besylate AdvReac Nausea Verified 10/24/22 22:15 [From Lotrel] benazepril HCl [From Lotrel] AdvReac Nausea Verified 10/24/22 22:15 codeine AdvReac Nausea Verified 10/24/22 22:15 latex AdvReac RED Verified 10/24/22 22:15 Penicillins AdvReac Nausea Verified 10/24/22 22:15 Family History Brother Diabetes Heart disease Kidney disease Cancer Mother Diabetes Hypertension Thyroid disorder Surgical History History of cataract surgery History of colonoscopy History of hysterectomy History of skin surgery History of surgical procedure on mouth Social History Smoking Status: Former smoker alcohol intake: never substance use type: does not use additional social history: uses ibuprofen daily Physical Exam Narrative Dorsalis pedis posterior tibial pulses palpable 2 out of 4 bilateral feet. Capillary fill time brisk to all digits. Light touch protective sensation absent to bilateral feet. Foot drop noted to left lower extremity secondary to weak dorsiflexion in setting of MS. Diffuse right ankle pain right side. Const alert and oriented x3 Lab / Micro Data Result Diagrams: 10/25/22 06:15 10/25/22 06:15 Labs: Laboratory Results - last 24 hr 10/25/22 06:15: Vitamin D 25-Hydroxy 48.2 10/25/22 06:15: WBC 7.4, RBC 3.55 L, Hgb 11.4 L, Hct 35.2 L, MCV 99.2 H, MCH 32.1 H, MCHC 32.4, RDW Std Deviation 50.0 H, RDW Coeff of Caty 13.5, Plt Count 146 L, MPV 11.5, Immature Gran % (Auto) 0.300, Neut % (Auto) 71.9 H, Lymph % (Auto) 12.7 L, [place] % (Auto) 12.4 H, Eos % (Auto) 2.2, Baso % (Auto) 0.5, Absolute Neuts (auto) 5.3, Absolute Lymphs (auto) 0.94, Nucleated RBC % 0 10/25/22 06:15: Sodium 145, Potassium 3.2 L, Chloride 110 H, Carbon Dioxide 28.0, Anion Gap 7, BUN 17, Creatinine 0.89, Estim Creat Clear Calc 54.42, Est GFR (MDRD) Af Amer 82, Est GFR (MDRD) Non-Af 68, BUN/Creatinine Ratio 19.2, Glucose 89, Calcium 8.8 Radiology Impression Ankle X-Ray 10/24/22 22:20 IMPRESSION: Partially displaced bimalleolar right ankle fracture with mild ankle joint space widening/instability. Electronically Signed: Walt Woodward MD at 22:55 EDT , 10/25/22 1200 <Electronically signed by Juan Manuel Umaña DPM> Cosigner Signature (if applicable): CC: TAMMIE Umaña; Dr. Jann Wright MD; Dr. Walt La, DO~ Signed [facility] Work Phone: 1(448) 244-666606-12-2023 History and physical note Author Dr. Wright [facility] October 25, 2022 5:32am Note Date/Time October 25, 2022 12:4 1am [facility] Medical Records Department [address] [place] [address] H&P Exam - Hospitalist 10/25/22 0040 MR#: [id number] Acct: [id number] Name: MARIA LUISA VILLALOBOS Rep #:[id number] : 1955 66 From: Jann Wright MD PCP: Dr. Walt La, DO Status:ADM IN Location: [facility] [place] [id number] HPI - General General Date of Admission: 10/25/22 Date of Service: 10/25/22 Chief Complaint: Right ankle pain HPI Narrative MARIA LUISA KITCHEN, is a 66 F with a significant history of multiple sclerosis who fell 3 times while doing gardening and then on the third fall heard some snapping and popping of her right ankle. She developed excruciating pain in her right ankle. Following that she came to emergency department. At baseline patient left leg is weak from multiple sclerosis and she supports herself with the right leg. With falling and injuring her right leg patient has more difficulty ambulating. Imaging at the emergency department found that her right leg has bimalleolar fracture. Emergency Department discussed the casewith orthopedic surgeon who recommended that patient stays at the hospital for further management. Emergency department doctor splinted patient's right leg. [facility] Medical History Anxiety COVID-19 Difficulty swallowing Easy bruising Excessive bleeding Former smoker Gastric reflux History of edema History of GI bleed History of stress test Hoarseness Hypertension Influenza A bronchitis Leg cramps Migraine headache Multiple sclerosis Peripheral neuropathy PONV (postoperative nausea and vomiting) Shortness of breath on exertion Walker as ambulation aid Wears glasses Wears partial dentures Home Medications amitriptyline 100 mg tablet 100 mg PO QHS DEPRESSION 08/04/14 [History Last Taken 09/03/18] atenolol 50 mg tablet 50 mg PO DAILY BLOOD PRESSURE 08/04/14 [History Last Taken 03/24/22] atenolol 50 mg tablet 75 mg PO QHS BLOOD PRESSURE 08/04/14 [History Last Taken 09/03/18] baclofen 20 mg tablet 30 mg PO Q8 MS 08/04/14 [History Last Taken 09/03/18] cholecalciferol (vitamin D3) 1,250 mcg (50,000 unit) capsule 50,000 unit PO TUTHSupplement 08/04/14 [History Last Taken 09/03/18] cyanocobalamin (vitamin B-12) 1,000 mcg/mL injection solution 100 mcg IM Q30D SUPPLEMENT 08/04/14 [History Last Taken 09/03/18] ibuprofen 200 mg tablet 400 mg PO DAILY PAIN 08/04/14 [History Last Taken 09/03/18] tramadol 50 mg tablet 50 mg PO Q4H PRN PRN Pain 09/03/18 [History Last Taken Unknown] amantadine HCl 100 mg capsule 100 mg PO BID SPASMS 09/04/18 [History Last Taken Unknown] bumetanide 2 mg tablet 2 mg PO BID WATER PILL 09/04/18 [History Last Taken Unknown] ocrelizumab 30 mg/mL intravenous solution 300 mg IV Q6M MS 09/04/18 [History Last Taken Unknown] sumatriptan succinate 50 mg tablet (Imitrex) 50 mg PO ONCE PRN migraine [id number]/17/22 [History Last Taken Unknown] clonazepam 0.5 mg tablet (Klonopin) 0.5 mg PO QHS PRN Spasms 10/25/22 [History Last Taken Unknown] fluconazole 200 mg tablet 200 mg PO DAILY PRN INFECTION 10/25/22 [History Last Taken Unknown] pantoprazole 40 mg tablet,delayed release 40 mg PO DAILY STOMACH 10/25/22 [History Last Taken Unknown] potassium chloride 20 mEq tablet,extended release(part/cryst) 20 meq PO DAILY SUPPLEMENT 10/25/22 [History Last Taken Unknown] Allergy/AdvReac Type Severity Reaction Status Date / Time adhesive AdvReac RED Verified 10/24/22 22:15 amlodipine besylate AdvReac Nausea Verified 10/24/22 22:15 [From Lotrel] benazepril HCl [From Lotrel] AdvReac Nausea Verified 10/24/22 22:15 codeine AdvReac Nausea Verified 10/24/22 22:15 latex AdvReac RED Verified 10/24/22 22:15 Penicillins AdvReac Nausea Verified 10/24/22 22:15 Family History Brother Diabetes Heart disease Kidney disease Cancer Mother Diabetes Hypertension Thyroid disorder Surgical History History of cataract surgery History of colonoscopy History of hysterectomy History of skin surgery History of surgical procedure on mouth Social History Smoking Status: Former smoker alcohol intake: never substance use type: does not use additional social history: uses ibuprofen daily ROS ROS Narrative Pertinent positives and pertinent negatives as noted in HPI. All other systems were reviewed and are negative Vital Signs Vital Signs Vital Signs: 10/24/22 22:08 Temperature 97.6 F L Temperature Source Temporal Pulse Rate 78 Respiratory Rate 15 Blood Pressure 164/81 H Blood Pressure Mean 108 Pulse Ox 97 Oxygen Delivery Method Room Air Weight Weight: 104.6 kg Body Mass Index (BMI) 39.5 Physical Exam Narrative Physical exam: General: Well-nourished, well-developed. Head: Normocephalic, atraumatic, no tenderness Eyes: Vision is grossly intact. EOMI ENT, no trauma, moist mucous membranes, no rhinorrhea Neck: Nontender, No thyromegaly. CVS: Regular rate and rhythm. S1-S2 present. No murmur, gallop or rub. Respiratory : clear to auscultation bilaterally, chest wall nontender Abdomen: Soft, nontender, nondistended, normal bowel sounds, no masses : Deferred Back: Nontender, no CVA tenderness, no midline spinal tenderness, deformities, step-offs Extremities: Right leg splinted. Left leg with edema (chronic). Skin: Normal color, no trauma, abrasions Neuro: Alert, oriented, cranial nerves II through XII grossly intact. Psychiatry: Normal mood. Normal affect. Not depressed. Not anxious. Results Radiology Impression Ankle X-Ray 10/24/22 22:20 IMPRESSION: Partially displaced bimalleolar right ankle fracture with mild ankle joint space widening/instability. Electronically Signed: Walt Woodward MD at 22:55 EDT , Assessment & Plan Assessment/Plan (1) Bimalleolar fracture of right ankle: PLAN: Plan Bimalleolar fracture of the right ankle Ankle x-ray was visualized and independently interpreted and I agree with radiologist interpretation of Partially displaced bimalleolar right ankle fracture with mild ankle joint space widening/instability. Emergent department doctor discussed the case with Dr. Umaña. Inpatient consult to podiatry. Morphine IV and oxycodone as needed ordered. Tylenol as needed ordered. Bowel protocol and antiemetics IV ordered. Keep n.p.o. While n.p.o. lactated Ringer's ordered. Check vitamin D level. ACS NSQIP surgical risk calculator with average cardiac complication risk but slightly higher any complication risk. Preoperative EKG ordered. If preoperative EKG is normal benefits will be considered moderate risk. Multiple sclerosis Stable; not in a flare Home medication continued DVT prophylaxis SCDs ordered Charges/Coding Visit Charges Inpatient E&M: 25798 Init Hosp L2 10/25/22 0532 <Electronically signed by Jann Wright MD> Cosigner Signature (if applicable): CC: Dr. Jann Wright MD; Dr. Walt La, ~ Signed [facility] Work Phone: 1(144) 414-580906-12-[address] Brand [facility] October 25, 2022 1:57am Note Date/Time October 25, 2022 12:1 0am [facility] Medical Records Department [address] [place] [address] Emergency Department Summary 10/25/22 MR#: [id number] Acct: [id number] Name: MARIA LUISA VILLALOBOS Rep #:[id number] : 1955 66 From: Doron Serrano PCP: Dr. Walt La, Status:ADM IN Location: [facility] [id number] HPI History of Present Illness HPI Narrative: Patient presents with right ankle injury that occurred tonight. Patient states she has a history of MS and has frequent falls. Patient fell 3 times today. Patient states she felt a popping and snapping sensation with the last fall. Patient was unable to ambulate after the last fall. Patient describes her pain as throbbing. Patient states it is worse with movement. Patient admits to someparesthesias and weakness in her right foot and ankle but states these are chronic due to her MS. Chief Complaint: Lower Extremity Injury Informant: patient Occured/Mechanism Mechanism/Context: Yes fall Onset/Context/Timing Onset: Today Context: Sudden Onset Timing: Continuous Quality of Pain: Throbbing Location: Right ankle Worsened by: Movement Relieved by: Nothing Associated Symptoms Associated Symptoms: Positive for Parasthesia and Weakness; Negative for Loss ofFuntion [facility] Medical History Anxiety COVID-19 Difficulty swallowing Easy bruising Excessive bleeding Former smoker Gastric reflux History of edema History of GI bleed History of stress test Hoarseness Hypertension Influenza A bronchitis Leg cramps Migraine headache Multiple sclerosis Peripheral neuropathy PONV (postoperative nausea and vomiting) Shortness of breath on exertion Walker as ambulation aid Wears glasses Wears partial dentures Home Medications amitriptyline 100 mg tablet 100 mg PO QHS 08/04/14 [History Last Taken 09/03/18] atenolol 50 mg tablet 50 mg PO DAILY 08/04/14 [History Last Taken 03/24/22] atenolol 50 mg tablet 75 mg PO QHS 08/04/14 [History Last Taken 09/03/18] baclofen 20 mg tablet 30 mg PO TID MS 08/04/14 [History Last Taken 09/03/18] cholecalciferol (vitamin D3) 1,250 mcg (50,000 unit) capsule 50,000 unit PO TUTHSupplement 08/04/14 [History Last Taken 09/03/18] cyanocobalamin (vitamin B-12) 1,000 mcg/mL injection solution 100 mcg IM Q30D 08/04/14 [History Last Taken 09/03/18] ibuprofen 200 mg tablet 400 mg PO DAILY 08/04/14 [History Last Taken 09/03/18] tramadol 50 mg tablet 50 mg PO Q4H PRN PRN Pain 09/03/18 [History Last Taken Unknown] amantadine HCl 100 mg capsule 100 mg PO BID SPASMS 09/04/18 [History Last Taken Unknown] bumetanide 2 mg tablet 2 mg PO BID WATER PILL 09/04/18 [History Last Taken Unknown] ocrelizumab 30 mg/mL intravenous solution 300 mg IV Q6M MS 09/04/18 [History Last Taken Unknown] potassium chloride 20 mEq tablet,extended release(part/cryst) 20 meq PO DAILY ##1 05/17/19 [Rx Last Taken Unknown] sumatriptan succinate 50 mg tablet (Imitrex) 50 mg PO ONCE PRN migraine esdfjqxf60/17/22 [History Last Taken Unknown] pantoprazole 40 mg tablet,delayed release 40 mg PO DAILY #30 tabs 03/24/22 [Rx Last Taken Unknown] sucralfate 1 gram tablet 1 g PO 4X/DAY #56 tabs 03/24/22 [Rx Last Taken Unknown] fluconazole 200 mg tablet 200 mg PO DAILY #7 tabs 03/26/22 [Rx Last Taken Unknown] Allergy/AdvReac Type Severity Reaction Status Date / Time adhesive AdvReac RED Verified 10/24/22 22:15 amlodipine besylate AdvReac Nausea Verified 10/24/22 22:15 [From Lotrel] benazepril HCl [From Lotrel] AdvReac Nausea Verified 10/24/22 22:15 codeine AdvReac Nausea Verified 10/24/22 22:15 latex AdvReac RED Verified 10/24/22 22:15 Penicillins AdvReac Nausea Verified 10/24/22 22:15 Family History Brother Diabetes Heart disease Kidney disease Cancer Mother Diabetes Hypertension Thyroid disorder Surgical History History of cataract surgery History of colonoscopy History of hysterectomy History of skin surgery History of surgical procedure on mouth Social History Smoking Status: Former smoker alcohol intake: never substance use type: does not use additional social history: uses ibuprofen daily ROS ROS ED Constitutional Constitutional ED: Denies chills or fever(s) Eyes Eyes: Denies blurry vision or change in vision ENT ENT ED: Denies rhinorrhea or sore throat Cardiovascular Cardiovascular: Denies chest pain or palpitations Respiratory/Chest Respiratory/Chest: Denies cough or dyspnea Gastrointestinal Gastrointestinal: Denies nausea or vomiting Genitourinary Genitourinary ED: Denies dysuria or hematuria Musculoskeletal Musculoskeletal: Denies back pain or neck pain Integumentary Denies abscess or rash Neurologic Neurologic: Reports paresthesias and weakness; Denies headache(s) Allergic/Immunologic Allergic/Immunologic ED: Denies mouth swelling or urticaria EXAM Physical Exam Const Vital Signs: 10/24/22 22:08 Temperature 97.6 F L Temperature Source Temporal Pulse Rate 78 Respiratory Rate 15 Blood Pressure 164/81 H Blood Pressure Mean 108 Pulse Ox 97 Oxygen Delivery Method Room Air Positive well nourished, well developed and obese General Appearance ED: well developed and NAD Nutritional Appearance: obese HEENT Reports moist mucous membranes Neck full ROM and supple Extremity Extremity Narrative: There is tenderness and edema over the right ankle. There is no obvious deformity noted. Range of motion was limited in all motions of the right ankle secondary to pain. Sensation was intact to light touch in all digits. Capillary refill was less than 2 seconds in all digits. Pedal pulses are equal bilaterally. There is no tenderness over the proximal fibula. There is no tenderness over the fifth metatarsal. General Extremety ED: Yes weight-bearing difficulty General Extremity: weight-bearing difficulty Neuro oriented x3, CN's II-XII intact bilaterally, moves all extremities and no sensory deficits noted Sensorium / Orientation: alert Motor Exam: strength 5/5 throughout Psych mental status grossly normal Skin no wounds MDM MDM MDM Narrative Medical decision making narrative: Differential diagnosis includes sprain, fracture, and contusion. X-rays of the right ankle will be obtained to assess for fracture. Radiography Diagnostic Testing: Clinical Impression(s) from Imaging Studies Ankle X-Ray 10/24/22 22:20 IMPRESSION: Partially displaced bimalleolar right ankle fracture with mild ankle joint space widening/instability. Electronically Signed: Walt Woodward MD at 22:55 EDT , X-rays of the right ankle were obtained. There are 3 views. On my independent interpretation, there is a bimalleolar fracture with slight displacement of the talus and fracture fragments laterally. Radiologist also interpreted the x-raysand agrees. Management Discussion w/another healthcare provider: [facility] (Dr. Umaña) Treatment and Re-Evaluation Narrative: Patient was given a dose of morphine here. Family and patient has concerns about going home. Patient states she has difficulty bearing weight on her left leg due to her multiple sclerosis. Patient and family are concerned about not being able to bear any weight on her right leg due to the fracture. Case was discussed with Dr. Umaña. He agrees with placing the patient in a posterior and sugar-tong splint. He recommended admitting the patient to the hospitalist service. Procedures Lower Extremity Splints Lower Extremity Splint: Orthoglass, Stirrup and - (And posterior) Splint Fabrication: Fabricated Location: Right Discharge Plan Triage Chief Complaint: Lower Extremity Injury ED Provider: Doron Brand Dx/Rx/DC Orders Clinical Impression: Bimalleolar fracture of right ankle, Multiple sclerosis Prescriptions: No Action sumatriptan succinate [Imitrex] 50 mg tablet 50 mg PO ONCE PRN (Reason: migraine headache) baclofen 20 MG tablet 30 mg PO TID cyanocobalamin (vitamin B-12) 1,000 MCG/ML solution 100 mcg IM Q30D ibuprofen 200 MG tablet 400 mg PO DAILY amitriptyline 100 MG tablet 100 mg PO QHS atenolol 50 MG tablet 75 mg PO QHS atenolol 50 MG tablet 50 mg PO DAILY cholecalciferol (vitamin D3) 50,000 UNIT capsule 50,000 unit PO TUTH tramadol 50 MG tablet 50 mg PO Q4H PRN PRN (Reason: Pain) bumetanide 2 MG tablet 2 mg PO BID ocrelizumab 300 MG/10 ML solution 300 mg IV Q6M Rx Instructions: every 6 months due November 2018. last had Jun 2018 amantadine HCl 100 MG capsule 100 mg PO BID potassium chloride 20 MEQ tablet,ER particles/crystals 20 meq PO DAILY Qty: 1 0RF sucralfate [sucralfate] 1 gram tablet 1 g PO 4X/DAY Qty: 56 0RF Rx Instructions: Take 1 hour before meals and at bedtime pantoprazole 40 mg tablet,delayed release (DR/EC) 40 mg PO DAILY Qty: 30 5RF fluconazole 200 mg tablet 200 mg PO DAILY Qty: 7 0RF Primary Care Provider: Walt La Referrals: Walt La, DO [Primary Care Provider] - What to do if you have Problems For any increased pain, shortness of breath, bleeding, nausea or vomiting, chestpain, or any unexpected problems, contact your Primary Care Provider. Call [facility] ([phone]) or report to the closest Emergency Room. Call 911 if necessary. 10/25/22 0157 <Electronically signed by Doron Brand DO> Cosigner Signature (if applicable): CC: Dr. Walt La DO ~ Signed [facility] Work Phone: 1(707) 737-239404-26-2022 History of Present illness Narrative* 65 yo woman who presents for evaluation of a 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 Had a small hole that never closed. Periodically will have pus draining out of there and through the nose.Some food/water will also leak out the nose at time. Had CT scan showing some bone loss. Saw Dr. Toney/Trung and was referred here. no blood thinners, no smoking * 09-08-21 post-op: doing well, has been rinsing, no bleeding; minimal pain, tolerating PO [id number] [place] Work Phone: 1(176) 365-884604-26-2022 History of Present illness Narrative* 65 yo woman who presents for evaluation of a 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 Had a small hole that never closed. Periodically will have pus draining out of there and through the nose.Some food/water will also leak out the nose at time. Had CT scan showing some bone loss. Saw Dr. Toney/Trung and was referred here. no blood thinners, no smoking * 09-08-21 post-op: doing well, has been rinsing, no bleeding; minimal pain, tolerating PO * 10-13-21fu: no pain, had some crusting come out a few times. no bleeding [id number] [place] Work Phone: 1(842) 463-406104-18-2022 NotePROCEDURE DETAILS Preoperative Diagnosis: Left chronic oroantral fistula, chronic sinusitis Postoperative Diagnosis: Left chronic oroantral fistula, chronic sinusitis Surgeon: Blanca Worrell MD Resident/Fellow/Other Class B Driver: Jose Roberto Procedure: 1. Endoscopic left axillary antrostomy with removal of tissue 2. Endoscopic left tom bullosa resection 3. Repair of oroantral fistula with local soft tissue advancement flap and adjacent tissue transfer 4. Extradural image guidance Anesthesia: GET Estimated Blood Loss: 30 Blood Replaced: None Findings: Please see operative report Specimens(s) Collected: yes, Sinus contents Complications: No immediate intraoperative complications Urine Output: NR Drains and/or Catheters: None Implants: None Patient Returned To/Condition: PACU/Stable Operative Report: Indications: This is a 65-year-old woman who presented to ENT clinic for initial evaluation of a left-sided oroantral fistula late last month. Her history is notable for a dental extraction in the area of concern in the past which did not heal. Her symptoms since that time include purulent drainage, passage of solids and liquids through the nose while eating. After discussion of risks, benefits, and alternatives, the decision was made to pursue the above listed procedure. All questions were answered, the patient expressed understanding. Findings: 1. Left upper alveolar ridge 5 mm fistula covered with buccal fat graft; xeroform bolster placed. 2. Inflammatory changes within the left maxillary sinus. mucous retention cyst. 3. Left middle turbinate tom bullosa removed Operative Details: The patient was met in the preoperative area and at that time any further questions were answered and consent was reviewed. The patient was escorted to the operating suite, transferred to the operating table in a supine position. A preoperative timeout was performed by Dr. Worrell. The patient was placed under general endotracheal intubation anesthesia. A preoperative time out was performed, verifying the correct patient, surgical site, and procedure. The bed was turned 90 degrees. The image guidance [employer] system was brought into the field and calibrated. The oral cavity addressed and repair of oroantral fistula was performed. We made an incision that started from the opening and extended laterally to the buccal mucosa. Care was taken to stay medial and inferior to the parotid duct. We divided the buccinator and found the buccal fat pad. We then elevated some of the gingiva from around the fistula and debrided the bone with a rondeur. All the bone was healthy appearing and bleeding. Next we teased out the fat pad and used 3-0 chromic to tack this into place, covering the entire fistula. Part of the inferior incision was closed as well. We then placed a xeroform bolster and secured this with 2-0 silk sutures. The nasal cavity was then examined with the 0 degree endoscope. There was an enlarged middle turbinate tom here. Patient had a rather thick tom and not well aerated. When we tried to enter it there was also an arterial pumper. Therefore we just removed the inferior half of the middle turbinate and cauterized the base. This allowed us to better expose the uncinate and maxillary os. The double ball probe and backbiting forceps were used to perform a retrograde uncinectomy. The probe was then used to cannulate the maxillary os and a large maxillary antrostomy was made with a straight through cutting forceps. The edges were cleaned up with the microdebrider. There was a mucous retention cyst at the opening and this was removed. No significant pus was encountered. The sinus was irrigated, hemostasis was achieved. All instruments were removed. The patient was turned over to anesthesia and extubated, having tolerated the procedure well. The patient was then escorted to the post anesthesia care unit in stable condition. There were no complications. Dr. Worrell was present for entirety of procedure. Attestation: Note Completion: I am a:Resident/Fellow Attending Sabino was present for the entire procedure Electronic Signatures: Dewey Cid (Resident)) (Signed 31-Aug-2021 11:05) Authored: Post-Operative Note, Chart Review, Note Completion Blanca Worrell) (Signed 31-Aug-2021 13:48) Authored: Post-Operative Note, Chart Review, Note Completion Last Updated: 31-Aug-2021 13:48 by Blanca Worrell)[facility] 08-31-2021 NoteHistory & Physical Reviewed: I have reviewed the History and Physical dated: 10-Aug-2021 History and Physical reviewed and relevant findings noted. Patient examined to review pertinent physical findings.: No significant changes Home Medications Reviewed: no changes noted Allergies Reviewed: no changes noted ERAS (Enhanced Recovery After Surgery): ERAS Patient: no Consent: COVID-19 Consent: COVID-19 Risk ConsentSurgeon has reviewed matamoros risks related to the risk of perfecto COVID-19 and if they contract COVID-19 what the risks are. Attestation: Note Completion: I am a: Resident/Fellow Attending Sabino saw and evaluated the patient. I personally obtained the matamoros and critical portions of the history and physical exam or was physically present for matamoros and critical portions performed by the resident/fellow. I reviewed the resident/fellows documentation and discussed the patient with the resident/fellow. I agree with the resident/fellows medical decision making as documented in the note. I personally evaluated the patient [id number] Electronic Signatures: Dewey Cid (Resident)) (Signed 31-Aug-2021 05:24) Authored: History & Physical Reviewed, ERAS, Consent, Note Completion Blanca Worrell) (Signed 31-Aug-2021 07:40) Authored: Note Completion Co-Signer: History & Physical Reviewed, ERAS, Consent, Note Completion Last Updated: 31-Aug-2021 07:40 by Blanca Worrell)[facility] Evaluation noteNo assessment information availableWOhio State East [facility] Work Phone: Evaluation note* Diagnosis Onset Date Resolution Status Acid reflux acute Epigastric abdominal pain ac [place] Screening for colon cancer a [facility] [place] Work Phone: Evaluation note* Diagnosis Onset Date Resolution Status Acid reflux acute Epigastric abdominal pain ac [place] Screening for colon cancer a [facility] Acid reflux acute Epigastric abdominal pain ac [facility] Work Phone: Evaluation note* Diagnosis Onset Date Resolution Status Bimalleolar fracture of right ankle acute Multiple sclerosis acute [facility] Work Phone: Evaluation note* Diagnosis Onset Date Resolution Status Multiple sclerosis acute Acid reflux acute Acute blood loss anemia acut e Bimalleolar avulsion fracture of right ankle acute Constipation acute Debility acute Foot drop, left acute History of open reduction an d internal fixation (ORIF) procedure acute Hypovolemia dehydration acut e Multiple sclerosis acute Osteopenia acute HTN (hypertension) chronic Peripheral neuropathy chroni c Hypokalemia resolved [facility] Work Phone: Evaluation note* Diagnosis Onset Date Resolution Status Acute blood loss anemia acut e Debility acute Foot drop, left acute History of open reduction an d internal fixation (ORIF) procedure acute Constipation resolved Hypokalemia resolved Hypovolemia dehydration reso lved Debility acute Foot drop, left acute History of open reduction an d internal fixation (ORIF) procedure acute Leukopenia acute Pica acute Thrombocytopenia acute [facility] Work Phone: History of Present illness [id number] yo woman who presents for evaluation of a 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 Had a small hole that never closed. Periodically will have pus draining out of there and through the nose.Some food/water will also leak out the nose at time. Had ct scan showing some bone loss. Saw Dr. Toney/trung and was referred here. no blood thinners, no suuemupFK-Apvbiebjrtqzul-Lrhpaiy [facility] Work Phone: History of Present illness Narrative* Reason for visit: * MARIA LUISA KITCHEN presents to the Otolaryngology Clinic in consultation at the request of Dr. Andrzej Toney for oral antral fistula. * The symptoms are * The antibiotics have included 2 rounds of keflex, 2 rounds of clindamycin, 1 z-pack, 1 round of Augmentin. * Main Symptoms: * Patient has anterior nasal drainage. when eating/drinking. * Patient has posterior nasal drainage. with eating/drinking. * Patient has nasal airway obstruction. L > R. * Patient does not have facial pain. * Patient has facial pressure. over left maxillary cheek. * Patient has decreased sense of smell. * Associated Symptoms: * Patient does not have headaches. * Patient has throat clearing. * Patient has coughing. * Patient has dysphonia. more hypernasal. * Patient does not have sneezing. * Patient does not have itchy eyes. * Patient has nasal bleeding. intermittent right sided epistaxis, self-resolving. * Medications currently on for sinonasal symptoms None. * Other Pertinent Medical Conditions: * Patient does not have asthma. * Patient does not have aspirin sensitivity. * Patient has migraines. Patient has been seen by Neurology. * Patient has not had allergy testing. * Patient does not have history of sinus surgery. * Patient has not had a nasal fracture. * Patient has heartburn. * The patient takes medical therapy for heartburn. Prilosec. * The patient has not had a GI evaluation. * Maria Luisa presents in consultation through Dr. Toney for left-sided oral antral fistula. In December she developed a toothache and ultimately had dental extractions from her left maxilla. After 2 weeks, they noted a small hole at the level of the extraction site. There was concern for some retained root tips and she underwent an additional procedure and unfortunately the fistula continued to enlarge.She has been treated with multiple courses of oral antibiotic therapy as outlined above. She will get benefit with the antibiotic but her symptoms quickly recur. She was evaluated by Dr. Toney who re commended that she see Dr. Barboza as her oral surgeon did not have come for closing this but she was scheduled with me today. * She denies significant facial discomfort but is bothered by the nasal drainage. Whenever she eats or drinks often the food or liquid will come out of her nose. * PMH: Osteoporosis (on alendronate weekly), MS (has had prior high dose steroids), neuropathy, HTN * PSH: dental extractions, no other surgeries * Allergies: codeine, Lotrel, adhesives, latex * Social: non smoker (prior, quit 2008, 1 PPD x 30 years), social EtOH * Family history: Noncontributory to otolaryngology concerns [facility] Work Phone: Reason for referral (narrative)No reason for referral information [facility] Work Phone: Summary Purpose Family History No Family History Records Found Relationship Condition Age at Onset Recorded Date/T laz Unknown Family History?- Unknown September 03, 2018 1:50pm Family History?- Unknown May 152018 12:35am Family History?Diabe carina, Heart Disease, - Unknown May 15, 2019 12:35am Relationship Condition Age at Onset Recorded Date/T laz brother Diabetes mellitus Unknown Cardiac disease Unknown Kidney disorder Unknown Malignant neoplasm Unknown mother Diabetes mellitus Unknown Hypertension Unknown Disorder of thyroid Unknown Relationship Condition Age at Onset Recorded Date/T laz brother Diabetes mellitus Unknown Cardiac disease Unknown Kidney disorder Unknown Malignant neoplasm Unknown mother Diabetes mellitus Unknown Hypertension Unknown Disorder of thyroid Unknown Venous thromboembolism (VTE) Unknown son Venous thromboembolism (VTE) Unknown Advance Directives No Advanced Directives Records Found Advance Directive Response Recorded Date/ Time Living Will Yes December 12, 2020 2:10pm Power of Planting Material Carrier Yes December 12 2:10pm Advance Directive Response Recorded Date/ Time Living Will No March 22 12:11pm Power of Planting Material Carrier Yes March 22, 2022 12:11pm Advance Directive Response Recorded Date/ Time Name of Medical Power of Planting Material Carrier JERAD WOODRUFF March 22, 2022 12:11pm Living Will No March 22 12:11pm Power of Planting Material Carrier Yes March 22, 2022 12:11pm Advance Directive Response Recorded Date/ Time Living Will No March 22 1:11pm Power of Planting Material Carrier Yes March 22, 2022 1:11pm Advance Directive Response Recorded Date/ Time Name of Medical Power of Planting Material Carrier Kenisha Vance October 25, 2022 1:20am Living Will Yes October 25, 2022 1:20am Power of Planting Material Carrier Yes October 25 1:20am Advance Directive Response Recorded Date/ Time Name of Medical Power of Planting Material Carrier Kenisha Vance October 25, 2022 1:20am Name of Medical Power of Planting Material Carrier Warren smith October 28, 2022 5:54pm Living Will No October 29, 2022 12:17pm Power of Planting Material Carrier No October 29 12:17pm Advance Directive Response Recorded Date/ Time Name of Medical Power of Planting Material Carrier Kenisha Vance October 25, 2022 1:20am Name of Medical Power of Planting Material Carrier Warren Basiliomyrtlerena smith October 28, 2022 5:54pm Name of Medical Power of Planting Material Carrier Marisa Vance November 12, 2022 4:38pm Living Will No November 15, 2022 3 :12pm Power of Planting Material Carrier No November 15, 2022 3:12pm Advance Directive Response Recorded Date/ Time Living Will No November 15, 2022 3 :12pm Power of Planting Material Carrier No November 15, 2022 3:12pm Advance Directive Response Recorded Date/ Time Living Will No November 15, 2022 3 :12pm Do you have a Healthcare Power of Planting Material Carrier? No November 15, 2022 3:12pm Advance Directive Response Recorded Date/ Time Do you have a Healthcare Power of Planting Material Carrier? Yes October 06, 2024 9:22pm Do you have a Healthcare Power of Planting Material Carrier? No October 07, 2024 5:28pm Chief Complaint oroantral fistulaOral antral fistulapost-op visit, non-smokerfollow up BMI 38.19, non-smoker Chief Complaint and Reason for Visit Chief Complaint COLONOSCOPY Reason for Visit Acid reflux Epigastric abdominal pain Screening for colon cancer Chief Complaint COLONOSCOPY LEFT FOOT PAIN Reason for Visit Acid reflux Epigastric abdominal pain Screening for colon cancer Chief Complaint COLONOSCOPY LEFT FOOT PAIN F/U CSOPE/MED CHECK Reason for Visit Acid reflux Epigastric abdominal pain Screening for colon cancer Acid reflux Epigastric abdominal pain Chief Complaint PALP Chief Complaint PALP PARTIALLY DISPLACED BIMALLEOLAR RIGHT ANKLE FRX PARTIALLY DISPLACED BIMALLEOLAR RIGHT ANKLE FRX PARTIALLY DISPLACED BIMALLEOLAR RIGHT ANKLE FRX Reason for Visit Bimalleolar fracture of right ankle Multiple sclerosis Chief Complaint PALP PARTIALLY DISPLACED BIMALLEOLAR RIGHT ANKLE FRX PARTIALLY DISPLACED BIMALLEOLAR RIGHT ANKLE FRX PARTIALLY DISPLACED BIMALLEOLAR RIGHT ANKLE FRX PARTIALLY DISPLACED BIMALLEOLAR RIGHT ANKLE FRX PARTIALLY DISPLACED BIMALLEOLAR RIGHT ANKLE FRX R ANKLE FRACTURE R ANKLE FRACTURE R ANKLE FRACTURE R ANKLE FRACTURE R ANKLE FRACTURE R ANKLE FRACTURE R ANKLE FRACTURE R ANKLE FRACTURE R ANKLE FRACTURE Reason for Visit Multiple sclerosis Acid reflux Acute blood loss anemia Bimalleolar avulsion fracture of right ankle Constipation Debility Foot drop, left History of open reduction and internal fixation (ORIF) procedure Hypovolemia dehydration Multiple sclerosis Osteopenia HTN (hypertension) Peripheral neuropathy Hypokalemia Chief Complaint PARTIALLY DISPLACED BIMALLEOLAR RIGHT ANKLE FRX PARTIALLY DISPLACED BIMALLEOLAR RIGHT ANKLE FRX PREOP PARTIALLY DISPLACED BIMALLEOLAR RIGHT ANKLE FRX PARTIALLY DISPLACED BIMALLEOLAR RIGHT ANKLE FRX PARTIALLY DISPLACED BIMALLEOLAR RIGHT ANKLE FRX R ANKLE FRACTURE R ANKLE FRACTURE R ANKLE FRACTURE R ANKLE FRACTURE R ANKLE FRACTURE R ANKLE FRACTURE R ANKLE FRACTURE R ANKLE FRACTURE R ANKLE FRACTURE R ANKLE FRACTURE DEBILITY DIBILITY Reason for Visit Acute blood loss ane mahad Debility Foot drop, left History of open reduction and internal fixation (ORIF) procedure Constipation Hypokalemia Hypovolemia dehydration Debility Foot drop, left History of open reduction and internal fixation (ORIF) procedure Leukopenia Pica Thrombocytopenia Chief Complaint Localized edema Chief Complaint Admit Date G3,MS May 02, 2024 4:14pm SCREENING May 10, 2024 3:33pm Chief Complaint Admit Date G35,MS May 02, 2024 4:14pm SCREENING May 10, 2024 3:33pm EDEMA August 20, 2024 2:03 pm Chief Complaint Admit Date EDEMA August 20, 2024 2:03 pm palpitaions October 06, 2024 8:59p m back October 07, 2024 3:58p m Additional Source Comments INFORMATION SOURCE (unrecogn ized section and content) DATE CREATED AUTHOR 11/04/2017 [facility] DATE CREATED AUTHOR AUTHOR'S ORGANIZ ATION 03/09/2019 [facility] DATE CREATED AUTHOR AUTHOR'S ORGANIZ ATION 10/14/2021 [employer] DATE CREATED AUTHOR AUTHOR'S ORGANIZ ATION 04/26/2022 [facility] DATE CREATED AUTHOR AUTHOR'S ORGANIZ ATION 08/04/2022 [facility] DATE CREATED AUTHOR AUTHOR'S ORGANIZ ATION 02/18/2025 [place] Goals (unrecognized section and content) Goals may be documented in a n alternate sectionGoals may be documented in an alternate sectionGoals may be documented in an alternate sectionGoals may be documented in an alternate sectionGoals may be documented in an alternate sectionGoals may be documented in an alternate sectionGoals may be documented in an alternate sectionGoals may be documented in an alternate sectionGoals may be documented in an alternate sectionGoals may be documented in an alternate section Care Teams (unrecognized sec tion and content) Team Status: Active Member Role Status Dates Dr. Walt La DO Family Provider Active Dr. Walt La DO Primary Care Provider Active Team Status: Inactive Member Role Status Dates Dr. Walt La DO Primary Care Provider, Referrin g Provider Active Dr. Tonya Nguyễn MD Attending Provider Active Team Status: Active Member Role Status Dates Dr. Walt La DO Primary Care Provider Active Dr. Tonya Nguyễn MD Attending Provi jimena, Referring Provider, Other Provider Active Team Status: Inactive Member Role Status Dates Dr. Walt La DO Primary Care Provider Active Dr. Tonya Nguyễn MD Attending Provider, Referring Provider Active Team Status: Inactive Member Role Status Dates Dr. Walt La DO Primary Care Provider Active LACEY LEBRON Attending Provider, Referring Provi jimena Active Team Status: Inactive Member Role Status Dates Dr. Walt La DO Primary Care Prov ider, Attending Provider, Referring Provider Active Team Status: Inactive Member Role Status Dates Dr. Walt La DO Primary Care Provider, Attendin g Provider Active Team Status: Active Member Role Status Dates Dr. Walt La DO Primary Care Provider Active Dr. Tripp Sarah MD Attending Provider Activ e Team Status: Inactive Member Role Status Dates Dr. Walt La , DO Primary Care Provider, Attendin g Provider Active Dr. Gurwinder Chirinos MD Referring Provider Active Team Status: Active Member Role Status Dates Dr. Walt La , DO Primary Care Provider Active Dr. Doron Brand , DO Emergency Provider Active Dr. Jann Wright MD Admit Provider, Attending Provider, Other Provider Active Dr. Juan Manuel Umaña DPM Other Provider Active Team Status: Active Member Role Status Dates Dr. Walt La , DO Primary Care Provider Active Dr. Doron Brand , DO Emergency Provider Active Dr. Jann Wright MD Admit Provider, Other Provide r Active Dr. Lorna Escalante MD Attending Provider, Other Prov ider Active Dr. Juan Manuel Umaña DPM Other Provider Active Team Status: Inactive Member Role Status Dates Dr. Walt La , DO Primary Care Provider Active Dr. Doron Brand , DO Emergency Provider Active Dr. Jann Wright MD Admit Provider, Other Provide r Active Dr. Lorna Escalante MD Attending Provider Active Dr. Juan Manuel Umaña DPM Other Provider Active Team Status: Active Member Role Status Dates Dr. Walt La , DO Primary Care Provider Active Dr. Sosa Alcala , DO Admit Pr ovider, Attending Provider, Other Provider Active Team Status: Inactive Member Role Status Dates Dr. Walt La , DO Primary Care Provider Active Dr. Sosa Alcala , DO Admit Provider, Attend ing Provider Active Team Status: Active Member Role Status Dates Dr. Walt La , DO Primary Care Provider Active Dr. Richar Worthy MD Admit Provider, Other Provider A ctive Dr. Sosa Alcala , DO Attending Provider Act narayan Team Status: Active Member Role Status Dates Dr. Walt La , DO Primary Care Provider Active Dr. Noel Ryan MD Attending Provider Active Dr. Jann Wright MD Referring Provider Active Team Status: Inactive Member Role Status Dates Dr. Walt La , DO Primary Care Provider Active Dr. Richar Worthy MD Admit Provider, Attending Provid er Active Dr. Juan Manuel Umaña DPM Other Provider Active Team Status: Inactive Member Role Status Dates Dr. Walt La , DO Primary Care Provider Active Dr. Juan Manuel Umaña , DPM Attending Provider Active Team Status: Inactive Member Role Status Dates Dr. Walt La DO Primary Care Provider Active Isadora Martinez NP-C Attending Provider, Referring Prov ider Active Team Status: Inactive Member Role Status Dates Dr. Walt La DO Primary Care Prov ider, Attending Provider, Referring Provider Active VARUN SHAH , SQL SERVER DBA-C Other Provider Active Team Status: Inactive Member Role Status Dates Dr. Walt La DO Primary Care Provider Active Dr. Gurwinder Chirinos MD Attending Provider, Refer ring Provider Active Team Status: Active Member Role Status Dates Dr. Walt La DO Primary Care Provider Active Team Status: Inactive Member Role Status Dates Dr. Walt La DO Primary Care Provider Active Start: May 02, 2024 End: May 02, 2024 VARUN SHAH , SQL SERVER DBA-C Attending Provider Active Sta rt: May 02, 2024 End: May 02, 2024 VARUN SHAH , SQL SERVER DBA-C Referring Provider Active Sta rt: May 02, 2024 End: May 02, 2024 Team Status: Inactive Member Role Status Dates Dr. Walt La DO Primary Care Provider Active Start: May 10, 2024 End: May 10, 2024 Dr. Walt La DO Attending Provider Active Start: May 10, 2024 End: May 10, 2024 Dr. Walt La DO Referring Provider Active Start: May 10, 2024 End: May 10, 2024 Team Status: Inactive Member Role Status Dates Dr. Walt La DO Primary Care Provider Active Start: August 14, 2024 End: August 14, 2024 VARUN SHAH , SQL SERVER DBA-C Attending Provider Active Sta rt: August 14, 2024 End: August 14, 2024 VARUN SHAH , SQL SERVER DBA-C Referring Provider Active Sta rt: August 14, 2024 End: August 14, 2024 Team Status: Inactive Member Role Status Dates Dr. Walt La DO Primary Care Provider Active Start: August 20, 2024 End: August 20, 2024 Dr. Walt La DO Attending Provider Active Start: August 20, 2024 End: August 20, 2024 Dr. Walt La DO Referring Provider Active Start: August 20, 2024 End: August 20, 2024 Team Status: Active Member Role Status Dates Dr. Walt La DO Primary Care Provider Active Start: August 20, 2024 Dr. Doron Gamez MD Attending Provider Active S tart: August 20, 2024 Team Status: Active Member Role Status Dates Dr. Walt La DO Primary Care Provider Active Start: August 20, 2024 Dr. Walt La DO Referring Provider Active Start: August 20, 2024 Dr. Doron Gamez MD Attending Provider Active S tart: August 20, 2024 Team Status: Inactive Member Role Status Dates Dr. Walt La DO Primary Care Provider Active Start: October 06, 2024 End: October 06, 2024 Dr. Christine Kennedy DO Emergency Provider Active Start: October 06, 2024 End: October 06, 2024 Team Status: Inactive Member Role Status Dates Dr. Walt La DO Primary Care Provider Active Start: October 07, 2024 End: October 07, 2024 Dr. Landon Pedraza DO Emergency Provider Active Start : October 07, 2024 End: October 07, 2024 Team Status: Active Member Role/Relationship Status Dates Dr. Walt La DO Primary care physician Active Team Status: Inactive Member Role/Relationship Status Dates Dr. Walt La DO Primary care physician Active Start: February 05, 2025 End: February 05, 2025 LACEY LEBRON Attending physician Active St art: February 05, 2025 End: February 05, 2025 LACEY LEBRON Referring Provider Active Sta rt: February 05, 2025 End: February 05, 2025 FOR RECORDS PERTAINING TO PATIENTS WHO ARE OR HAVE BEEN ENROLLED IN A CHEMICAL DEPENDENCY/SUBSTANCEABUSE PROGRAM, SOME INFORMATION MAY BE OMITTED. This clinical summary was aggregated from multiple sources. Caution should be exercised in using it in the provision of clinical care. This summary normalizes information from multiple sources, and as a consequence, information in this document may materially change the coding, format and clinical context of patient data. In addition, data may be omitted in some cases. CLINICAL DECISIONS SHOULD BE BASED ON THE PRIMARY CLINICAL RECORDS. [facility] [employer] provides no warranty or guarantee of the accuracy or completeness of information in this document.
[2025-05-07 21:24] LABS: Hematocrit 41.5 % (37-47); Hemoglobin 13.6 g/dL (12.0-15.0); Immature Granulocytes Count 0.030 X10^3/uL (0.0-0.0); Mean Corp Hgb Conc 32.8 g/dL (32-36); Mean Corpuscular Volume 95.6 fL (81-99); Mean Platelet Vol. 11.4 fl (6.2-12.0); NRBC Flagged by Analyzer 0 % (0-5); Platelet Count 181 K/mm3 (150-450); RBC Distribution Width CV 13.3 % (11.6-14.6); RBC Distribution Width SD 46.9 fl (35.1-43.9); Red Blood Count 4.34 M/mm3 (4.2-5.4); White Blood Count 6.4 K/mm3 (4.4-11.0)
[2025-05-07 21:51] LABS: Anion Gap 14 (7-18); BUN 16 mg/dL (4-19); BUN/Creat Ratio 16.2 RATIO (10-20); Calcium,Total 9.3 mg/dL (7.6-11.0); Carbon Dioxide 25.6 mmol/L (20.0-29.0); Chloride 105 mmol/L (96-106); Estimated Creatinine Clearance 63.37 ml/min (50-250); Glucose 120 mg/dL (70-99); Potassium 3.5 mmol/L (3.5-5.1); Pro- Brain NATRIURETIC PEPTIDE 1481 pg/mL (<=900)
[2025-05-07 22:00] VITALS: BP 158/72; PULSE 65; RESP 16; TEMP 36.7; O2SAT 98
[2025-05-07 22:33] VITALS: BP 142/57; PULSE 65; RESP 16; TEMP 36.6; O2SAT 96
[2025-05-07] MEDS: Smz/Tmp Ds Tablet 1 TABLET PO (22:37)
[2025-05-08 01:18] LABS: Reflex Lactate? Y
== END 2025-05-07 22:48 | disposition home or self-care (01) ==
PROVIDERS: Emergency Provider Emergency Medicine; PCP Family Medicine; Visit Provider Emergency Medicine
DX: L03.116 Cellulitis of left lower limb (principal); I10 Essential (primary) hypertension; G35.D Multiple sclerosis, unspecified; F41.9 Anxiety disorder, unspecified; K21.9 Gastro-esophageal reflux disease without esophagitis; G62.9 Polyneuropathy, unspecified; M85.80 Other specified disorders of bone density and structure, unspecified site; Z87.19 Personal history of other diseases of the digestive system; Z79.899 Other long term (current) drug therapy; Z87.891 Personal history of nicotine dependence
CPT/HCPCS: 71045; 80048; 83605; 83880; 85025; 87040; 93005; 93970; 99285; A4216